=== PATIENT | female | born 1955 | race Caucasian/White ===

== ENCOUNTER 2017-07-22 17:12 | Inpatient (IN) | payer BC ==
--- OUTSIDE RECORDS SUMMARY | 2017-07-22 17:15 | XMS REPORT | Clinical Summary ---
:1955 Author Organization [facility] Address [address] [place] [address] Phone Care Team Providers Name Role Phone Unavailable Primary Care Provider Unavailable Allergies Active Allergy Reactions Severity Noted Date Comments Levofloxacin 09/30/2014 Itching,rednes and burning on the site only. Codeine Rash Low 10/29/2013 Current Medications Prescription Sig. Disp. Refills Start End Status Date Date blood sugar diagnostic Test 4 times 100 strip 3 10/23/19 Active (EASY TOUCH) daily, each meal 15 StrpIndications: and at bedtime. Diabetes (HCC) amLODIPine (NORVASC) 5 Take 5 mg by 10/21/19 Active MG tablet mouth daily . 15 INSULIN Inject 35 Units Active GLARGINE,HUM.REC.ANLOG subcutaneously (TOUJEO SOLOSTAR SUBQ) once at bedtime . calcium Take 1 tablet by Active carbonate-vitamin D3 mouth 2 (two) (OSCAL-D) 500 times daily with mg(1,250mg) -200 unit breakfast and per tablet dinner. cyanocobalamin Take 1,000 mcg by Active (VITAMIN B-12) 1000 mouth daily. MCG tablet metoprolol (TOPROL-XL) Take 100 mg by Active 100 MG 24 hr tablet mouth 2 (two) times daily. traMADol (ULTRAM) 50 Take 50 mg by Active mg tablet mouth every 6 (six) hours as needed for Pain. aspirin 81 MG chewable Take 1 tablet (81 90 tablet 0 08/09/20 2 Active tablet mg total) by 17 018 mouth daily. hydroCHLOROthiazide Take 12.5 mg by Active (MICROZIDE) 12.5 mg mouth daily. capsule tacrolimus (PROGRAF) 1 Take 5 capsules 900 1 03/05/20 Active MG capsuleIndications: (5 mg total) by capsule 17 018 HCC (hepatocellular mouth 2 (two) carcinoma) (HCC), times daily. Liver replaced by transplant (HCC) famotidine (PEPCID) 20 Take 1 tablet (20 30 tablet 11 10/21/19 Discontinued MG tablet mg total) by 15 017 mouth daily. ursodiol (ACTIGALL) Take 1 capsule 60 capsule 11 10/21/19 Discontinued 300 mg capsule (300 mg total) by 15 017 mouth 2 (two) times daily. predniSONE (DELTASONE) Take 0.5 tablets 05/11/19 Discontinued 5 MG tablet (2.5 mg total) by 16 017 mouth daily. sulfamethoxazole-trime Take 1 tablet 12 tablet 3 09/05/19 Discontinued thoprim (BACTRIM DS) (160 mg of 16 017 800-160 mg per trimethoprim tabletIndications: total) by mouth Liver replaced by every Saturday, transplant (HCC), Saturday, Immunosuppression Saturday. (HCC) tacrolimus (PROGRAF) 1 Take 5 capsules 300 6 06/26/19 Discontinued MG capsuleIndications: (5 mg total) by capsule 17 017 HCC (hepatocellular mouth 2 (two) carcinoma) (HCC), times daily. Liver replaced by transplant (HCC) esomeprazole (NEXIUM) Take 1 capsule 30 capsule 11 08/10/19 Discontinued 40 MG capsule (40 mg total) by 17 017 mouth daily. hydroCHLOROthiazide Take 1 tablet 90 tablet 0 08/10/19 Discontinued (HYDRODIURIL) 12.5 MG (12.5 mg total) 17 017 tablet by mouth daily. furosemide (LASIX) 20 Take 20 mg by Discontinued MG tablet mouth daily. 017 Active Problems Problem Noted Date Chest pain 08/08/2016 Immunosuppression (HCC) 10/18/2014 Last Assessment & Plan: On prograf maintenance- will adjust according to level. CKD (chronic kidney disease) 10/18/2014 Last Assessment & Plan: Kidney function has recovered. Dr. Saini following. Hyperkalemia 10/14/2014 Last Assessment & Plan: Resolved with discontinuation of losartan and avoidance of K in diet, while on prograf. Continue to monitor- labs pending. Liver replaced by transplant (HCC) 09/30/2014 Last Assessment & Plan: Excellent graft function. Type 2 diabetes mellitus with diabetic polyneuropathy, with long-term 2013 current use of insulin (HCC) Last Assessment & Plan: Blood sugars controlled. Obesity (BMI 30-39.9) 12/17/2013 Last Assessment & Plan: Patient has not yet started to diet. Patient uses a walker but seems motivated to make changes. States she has lost 45 pounds in anticipation of transplant. Lipid profile looks good on last lab draw. Portal hypertension (HCC) 10/29/2013 Last Assessment & Plan: Manifested by thrombocytopenia. HCC (hepatocellular carcinoma) (HCC) 10/29/2013 Last Assessment & Plan: 2 foci of HCC without lymphovascular invasion. Continue with HCC surveillance using cross-sectional imaging. Hepatitis C, genotype 3a 10/29/2013 Last Assessment & Plan: Patient is s/p liver transplant. Is being followed by hepatology. Immunity status testing 10/29/2013 Last Assessment & Plan: CDC recommends that all patients with chronic liver disease, regardless of etiology, should be immunized to prevent hepatitis A and hepatitis B if they are not already immune. This should be done in addition to other age-appropriate vaccines. We will test for immunity to both viruses - vaccine recommendations will follow. Encounters Date Type Specialty Care Team Description 07/18/2017 Abstract Transplant Shiela Weems, Hepatology RN 03/03/2017 Refill Transplant Johnny Tinoco, HCC (hepatocellular Hepatology carcinoma) (HCC);Liver replaced by transplant (HCC) 10/11/2016 Telephone Transplant Felicia Velasco, Medication Hepatology RN Management (leg swelling) 10/09/2016 Telephone Transplant Judy Simpson Labs Only (Spoke Hepatology w/pt re; labs/meds. No changes in her medication, repeat labs 01/08/17 at [facility]. ) 10/09/2016 Abstract Transplant Celeste Salinas Hepatology MD Anders 10/08/2016 Follow-Up Transplant Celeste Salinas Liver replaced by Hepatrosanna Mcnamara MD transplant (HCC) (Primary Dx);Obesity (BMI 30-39.9);Hepatitis C virus infection without hepatic coma, unspecified chronicity;Immunosu ppression (HCC);Screening for malignant neoplasm 10/08/2016 Orders Only Transplant KaeCeleste chaves Liver replaced by Hepatrosanna Mcnamara MD transplant (HCC);HCC (hepatocellular carcinoma) (HCC);Hepatitis C virus infection without hepatic coma, unspecified chronicity;Type 2 diabetes mellitus with diabetic polyneuropathy, with long-term current use of insulin (HCC);Obesity (BMI 30-39.9);CKD (chronic kidney disease), stage 2 (mild) 10/07/2016 Telephone Transplant Felicia Velasco, Medication Problem Hepatology RN (Prograf) 08/29/2016 Orders Only Transplant Steven, Liver replaced by Hepatology Miranda Sunshine RN transplant (HCC) (Primary Dx);HCC (hepatocellular carcinoma) (HCC);Hepatitis C virus infection without hepatic coma, unspecified chronicity;Type 2 diabetes mellitus with diabetic polyneuropathy, with long-term current use of insulin (HCC);Obesity (BMI 30-39.9);CKD (chronic kidney disease), stage 2 (mild) 08/08/2016 - Hospital Encounter Cardiology Nita Koroma Chest pain, 08/09/2016 MD Coni unspecified Zulma Freitas MD type;Liver replaced by transplant (HCC);Type 2 diabetes mellitus with diabetic polyneuropathy, with long-term current use of insulin (HCC);CKD (chronic kidney disease), stage 2 (mild);Immunosuppre ssion (HCC);Obesity (BMI 30-39.9) 08/01/2016 Orders Only Transplant Harris, Liver replaced by Hepatology Miranda Sunshine RN transplant;HCC (hepatocellular carcinoma);Hepatiti s C virus infection without hepatic coma, unspecified chronicity;Drug or chemical induced diabetes mellitus without complication, with long-term current use of insulin (HCC);Immunosuppres claribel;CKD (chronic kidney disease), stage 2 (mild) after 07/21/2016 Immunizations Name Dates Previously Given Next Due Pneumococcal Polysaccharide (Pneumovax) 08/09/2016 Family History Medical History Relation Name Comments Stroke Mother Unremarkable Mother Cancer Sister Relation Name Status Comments Daughter Alive Father Mother Alive Sister Alive Social History Tobacco Use Types Packs/Day Years Used Date Current Every Day Smoker 0.5 30 Smokeless Tobacco: Never Used Alcohol Use Drinks/Week oz/Week Comments No 1 drink/ 2 months Sex Assigned at Date Recorded Not on file Last Filed Vital Signs Vital Sign Reading Time Taken Blood Pressure 146/79 10/08/2016 11:11 AM CDT Pulse 70 10/08/2016 11:11 AM CDT Temperature 36.7 C (98 F) 10/08/2016 11:11 AM CDT Respiratory Rate 20 10/08/2016 11:11 AM CDT Oxygen Saturation 100% 10/08/2016 11:11 AM CDT Inhaled Oxygen Concentration - - Weight 107 kg (236 lb) 10/08/2016 11:11 AM CDT Height 167.6 cm (5' 6") 10/08/2016 11:11 AM CDT Body Mass Index 38.09 10/08/2016 11:11 AM CDT Plan of Treatment Health Maintenance Due Date Last Done Comments INFLUENZA VACCINE 12/23/2017 Implants Implanted Type Area Product Blending Supervisor Device Expiration Model / Identifier Date Serial / Lot Angio-Seal Vip Right: [employer] 10/22/2014 [id number] / Implanted: Qty: 1 on 02/16/2014 by Darío Shearer MD [employer] / [id number] Results CBC with platelet count + automated diff (10/08/2016 10:14 AM)Only the most recent of2 resultswithin the time period is included. Component Value Ref Range WBC 5.8 4.0 - 10.0 K/L RBC 4.55 4.00 - 5.00 M/L Hemoglobin 12.6 12.0 - 15.0 GM/DL Hematocrit 37.1 36.0 - 45.0 % MCV 81.5 (L) 82.0 - 99.0 fL MCH 27.7 27.0 - 33.0 pg MCHC 34.0 32.0 - 36.0 GM/DL RDW 13.1 10.3 - 14.2 % Platelets 158 150 - 430 K/CU MM MPV 7.3 6.5 - 10.5 fL nRBC 0 0 - 0 /100 WBC % Neutros 51 % % Lymphs 27 % % Monos 21 % % Eos 2 % % Baso 0 % # Neutros 2.94 1.80 - 8.00 K/L # Lymphs 1.54 1.48 - 4.50 K/L # Monos 1.19 0.00 - 1.30 K/L # Eos 0.10 0.00 - 0.50 K/L # Baso 0.02 0.00 - 0.20 K/L Specimen Performing Laboratory Blood [address] [address] Narrative 0.00 Tacrolimus level (10/08/2016 10:14 AM)Only the most recent of2 resultswithin the time period is included. Component Value Ref Range Tacrolimus Lvl 9.6 (L) 10.0 - 20.0 ng/mL Specimen Performing Laboratory Blood [address] [address] Alpha fetoprotein (AFP), tumor marker (10/08/2016 10:14 AM) Component Value Ref Range Alpha-Fetoprotein <2.0 <10.0 ng/mL Specimen Performing Laboratory Blood [address] [address] Narrative Effective 02/09/2014: Reference Range Change New: <10.0 Previous: 0.0-8.0 Hepatitis C PCR, Quantitative (10/08/2016 10:14 AM) Component Value Ref Range HCV PCR, Quantitative HCV RNA not detected HCV RNA not detected Specimen Performing Laboratory Blood [address] [address] Narrative This test uses a Real-Time Polymerase Chain Reaction (RT-PCR) methodology and was performed using LAZ Ampliprep/LAZ TaqMan HCV test kit version 2.0 ( [employer]). Reportable range for this assay is 15 - 100,000,000 IU per mL (1.18 - 8.00 Log IU/mL). CBC with platelet count + automated diff (10/08/2016 10:14 AM)Only the most recent of2 resultswithin the time period is included. Specimen Performing Laboratory Blood [facility] ([facility]) Narrative The following orders were created for panel order CBC with platelet count + automated diff. Procedure Abnormality Status --------- ------ CBC with platelet count ...[[id number]]AbnormalFinal result Please view results for these tests on the individual orders. Phosphorus (10/08/2016 10:14 AM) Component Value Ref Range Phosphorus 4.5 2.3 - 4.7 mg/dL Specimen Performing Laboratory Blood [address] [address] Magnesium (10/08/2016 10:14 AM) Component Value Ref Range Magnesium 2.3 1.6 - 2.6 mg/dL Specimen Performing Laboratory Blood [address] [address] Bilirubin, direct (10/08/2016 10:14 AM) Component Value Ref Range Bilirubin, Direct 0.2 0.1 - 0.5 mg/dL Specimen Performing Laboratory Blood [address] [address] Lipid panel (10/08/2016 10:14 AM) Component Value Ref Range Triglycerides 170 mg/dL Cholesterol 175 mg/dL HDL 52 mg/dL LDL Calculated 89 mg/dL Specimen Performing Laboratory Blood [address] [address] Narrative Triglyceride Reference Range: Low Risk <150 [id number] High Risk 200-499 Very High Risk>=500 Cholesterol Reference Range: Low Risk <200 [id number] High Risk>240 HDL Cholesterol Reference Range: Low Risk >=60 High Risk <40 LDL Cholesterol Reference Range: Optimal<100 Near Cokijxh303-280 [id number] Rpyu178-503 Very High >=190 Comprehensive metabolic panel (10/08/2016 10:14 AM) Component Value Ref Range Protein, Total 6.7 6.0 - 8.3 gm/dL Albumin 3.5 3.5 - 5.0 g/dL Alkaline Phosphatase 120 40 - 150 U/L Total Bilirubin 0.7 0.2 - 1.2 mg/dL Sodium 140 136 - 145 meq/L Potassium 5.1 3.5 - 5.1 meq/L Chloride 108 (H) 98 - 107 meq/L CO2 22 22 - 29 meq/L BUN 37 (H) 7 - 21 mg/dL Creatinine 1.16 0.57 - 1.25 mg/dL Glucose 214 (H) 70 - 105 mg/dL Calcium 9.1 8.4 - 10.2 mg/dL AST 16 5 - 34 U/L ALT 17 6 - 55 U/L EGFR 47Comment: ESTIMATED GFR IS NOT ACCURATE mL/min/1.73 sq m CREATININE CLEARANCE IN PREDICTING GLOMERULAR FILTRATION RATE. ESTIMATED GFR IS NOT APPLICABLE FOR DIALYSIS PATIENTS. Specimen Performing Laboratory Blood [address] [address] RHYTHM STRIP - SCAN (08/10/2016 10:20 AM)POC-Glucose meter (08/09/2016 12:20 PM) Only the most recent of5 resultswithin the time period is included. Component Value Ref Range POC-Glucose Meter 100Comment: TESTED AT [address] 70 - 110 mg/dL [address] Specimen Performing Laboratory Blood [address] [address] 2D Echo W/Doppler(CW/PW/Color) (08/09/2016 10:28 AM) Specimen Performing Laboratory DIGISONICS Narrative Echocardiography Laboratory [address] [place] [address] Voice:[phone] Transthoracic Echocardiogram Pat.Name:PAM KO.ID:[id number] .Date: 08/09/2016 Refer.MD:NITA KOROMA Exam Time: 10:28:00 AM Study Type:Echo Complete Height:66inWeight:229lb BSA: 2.12 m2 DOBAge:1955,61Y Sex: FEMALEBP:120/59 HR:76 bpmSonogrphr: Yann Mendez [facility] Pat. Stat.:Inpatient Room:1447 Reason for Study:Acute Chest Pain / Suspected CAD History / Clinical:Cancer, Diabetes, Hepatitis C, Hypertension, Obesity, Stroke/TIA, Hepatitis B Procedures:2D ECHO W/ DOPPLER (CW/PW/COLOR) SUMMARY: Left ventricular chamber size (by PSLAX dimension) is normal (female - LVIDd 3.8-5.2 cm). Moderate concentric LV hypertrophy. All of the LV segments contract normally. Estimated LVEF by qualitative assessment is normal (> 60%). The right ventricular chamber size and systolic function are within normal limits. Unable to estimate peak systolic PA pressure; inadequate TR velocity signal. No pericardial effusion is visualized. FINDINGS: LV: All of the LV segments contract normally. Global LV systolic functionis normal. Moderate concentric LV hypertrophy. Leftventricular chamber size (by PSLAX dimension) is normal(female -LVIDd 3.8-5.2 cm). Estimated LVEF by qualitativeassessment is normal (> 60%). LA: LA size is normal (16-34 ml/m2). RV: The right ventricular chamber size and systolic function are withinnormal limits. RA: RA cavity size is normal. AV: Mild AoV cusp thickening. A trace of aortic regurgitation. MV: Mild MV leaflet thickening. Mild MV leaflet calcification. TV: TV structure is normal. Unable to estimate peak systolic PA pressure;inadequate TR velocity signal. PV: Normal PV structure and function by limited views and Doppler. AO: Aortic root size (Sinus of Valsalva diameter) is normal. Pericard: No pericardial effusion is visualized. PA/PV/Pleural: Pulmonary vein flow is normal. MEASUREMENTS: 2D LA Sng Plane LA Vol71.3 mlIndex 33.6 ml/m2 LA Area 22.9 cm2(8.8-23.4) Parasternal Long Va[place] Ao An 2.19 cm (1.4-2.6) LV%fs 49.6 %(25-46)* Ao Rtd3.41 cmLVPWd 1.57 cm IVSd1.66 cm LA Ds 4.48 cm (2.3-3.8)* LVIDd 4.15 cm (4.3-5.1)* LV Wmn 1.62 cm LVIDs 2.09 cm (2-4) Signed 08/09/2016 12:59 PM Jarred Todd M.D. Procedure Note Interface, External Ris In - 08/09/2016 1:00 PM CDT Echocardiography Laboratory [address] [place] [address] Voice: [phone] Transthoracic Echocardiogram Pat.Name: PAM KO Pat.ID: [id number] St.Date: 08/09/2016 Refer.MD: NITA KOROMA Exam Time: 10:28:00 AM Study Type:Echo Complete Height: 66in Weight: 229lb BSA: 2.12 m2 Age: 10 1955,61Y Sex: FEMALE BP: 120/59 HR: 76 bpm Sonogrphr: Yann Mendez [facility] Pat. Stat.:Inpatient Room: [facility] Reason for Study:Acute Chest Pain / Suspected CAD History / Clinical:Cancer, Diabetes, Hepatitis C, Hypertension, Obesity, Stroke/TIA, Hepatitis B Procedures:2D ECHO W/ DOPPLER (CW/PW/COLOR) SUMMARY: Left ventricular chamber size (by PSLAX dimension) is normal (female - LVIDd 3.8-5.2 cm). Moderate concentric LV hypertrophy. All of the LV segments contract normally. Estimated LVEF by qualitative assessment is normal (> 60%). The right ventricular chamber size and systolic function are within normal limits. Unable to estimate peak systolic PA pressure; inadequate TR velocity signal. No pericardial effusion is visualized. FINDINGS: LV: All of the LV segments contract normally. Global LV systolic function is normal. Moderate concentric LV hypertrophy. Left ventricular chamber size (by PSLAX dimension) is normal (female - LVIDd 3.8-5.2 cm). Estimated LVEF by qualitative assessment is normal (> 60%). LA: LA size is normal (16-34 ml/m2). RV: The right ventricular chamber size and systolic function are within normal limits. RA: RA cavity size is normal. AV: Mild AoV cusp thickening. A trace of aortic regurgitation. MV: Mild MV leaflet thickening. Mild MV leaflet calcification. TV: TV structure is normal. Unable to estimate peak systolic PA pressure; inadequate TR velocity signal. PV: Normal PV structure and function by limited views and Doppler. AO: Aortic root size (Sinus of Valsalva diameter) is normal. Pericard: No pericardial effusion is visualized. PA/PV/Pleural: Pulmonary vein flow is normal. MEASUREMENTS: 2D LA Sng Plane LA Vol 71.3 ml Index 33.6 ml/m2 LA Area 22.9 cm2 (8.8-23.4) Parasternal Long [place] Ao An 2.19 cm (1.4-2.6) LV%fs 49.6 % (25-46)* Ao Rtd 3.41 cm LVPWd 1.57 cm IVSd 1.66 cm LA Ds 4.48 cm (2.3-3.8)* LVIDd 4.15 cm (4.3-5.1)* LV Wmn 1.62 cm LVIDs 2.09 cm (2-4) Signed 08/09/2016 12:59 PM Jarred Todd M.D. NM myocardial perfusion PET (rest and stress) (08/09/2016 9:56 AM) Specimen Performing Laboratory GE RIS Impressions : 1. Normal study.2. Appropriate pharmacologic stress.3. Normal myocardial perfusion.4. Normal resting LV function. No deterioration of function is noted with pharmacologic stress.5. Normal extracardiac tracer distribution.6. No previous [facility] study for comparison. NONINVASIVE RISK STRATIFICATION: The above findings are considered low risk (<1% annual mortality rate) based on the following criterion: - Normal or small myocardial perfusion defect at rest or with stress ([facility]. 2012;59(9):857-81.) Signed: Nikunj Elena MD Report Verified Date/Time:08/09/2016 13:11:22 Reading Location: [address] [id number] [facility] Reading Room Narrative FINAL REPORT PROCEDURE: Rest/Stress MYOCARDIAL PERFUSION PET with regadenoson\\XA9\\ CPT CODE: 30510 INDICATION: Chest pain evaluation HISTORY: Cardiac risk factors: Diabetes, obesity, stroke. Other cardiovascular history: No reported CAD. Recent cardiac symptoms: Chest pain. Current cardiovascular-related medications: Amlodipine, metoprolol succinate. PROTOCOL: Limited low-dose CT imaging was performed for attenuation correction. 40.0 mCi of Rb-82 chloride was injected iv at rest, and gated PET (positron emission tomography) images were obtained. Subsequently, 40.20 mCi of Rb-82 chloride was injected iv at expected peak pharmacologic effect, and gated PET images were obtained. PRELIMINARY STRESS TEST DATA FROM NONINVASIVE CARDIOLOGY: Pharmacologic stress was by 10-second iv infusion of 0.4 mg of regadenoson. Radiotracer was injected 30 seconds after start of stress. Heart rate was 67 beats/min at rest and 77 beats/min (49% of MPHR) at tracer injection. BP was 148/68 mmHg at rest and 158/41 mmHg at tracer injection. Stress was stopped for predetermined endpoint. The patient experienced flushing; treatment was not required. Preliminary ECG evaluation revealed sinus rhythm at rest and no ischemic changes with stress. (Final ECG interpretation and other stress and monitoring data are reported separately by Cardiology.) IMAGING FINDINGS: Study quality is good. Images obtained after rest and stress injections show normal LV activity. LV and RV volumes appear normal. Gated images obtained at rest and with stress show normal LV wall motion and thickening. LVEF at rest is 70%. LVEF at stress is 69%. Procedure Note Interface, External Ris In - 08/09/2016 1:13 PM CDT FINAL REPORT PROCEDURE: Rest/Stress MYOCARDIAL PERFUSION PET with regadenoson\\XA9\\ CPT CODE: 97352 INDICATION: Chest pain evaluation HISTORY: Cardiac risk factors: Diabetes, obesity, stroke. Other cardiovascular history: No reported CAD. Recent cardiac symptoms: Chest pain. Current cardiovascular-related medications: Amlodipine, metoprolol succinate. PROTOCOL: Limited low-dose CT imaging was performed for attenuation correction. 40.0 mCi of Rb-82 chloride was injected iv at rest, and gated PET (positron emission tomography) images were obtained. Subsequently, 40.20 mCi of Rb-82 chloride was injected iv at expected peak pharmacologic effect, and gated PET images were obtained. PRELIMINARY STRESS TEST DATA FROM NONINVASIVE CARDIOLOGY: Pharmacologic stress was by 10-second iv infusion of 0.4 mg of regadenoson. Radiotracer was injected 30 seconds after start of stress. Heart rate was 67 beats/min at rest and 77 beats/min (49% of MPHR) at tracer injection. BP was 148/68 mmHg at rest and 158/41 mmHg at tracer injection. Stress was stopped for predetermined endpoint. The patient experienced flushing; treatment was not required. Preliminary ECG evaluation revealed sinus rhythm at rest and no ischemic changes with stress. (Final ECG interpretation and other stress and monitoring data are reported separately by Cardiology.) IMAGING FINDINGS: Study quality is good. Images obtained after rest and stress injections show normal LV activity. LV and RV volumes appear normal. Gated images obtained at rest and with stress show normal LV wall motion and thickening. LVEF at rest is 70%. LVEF at stress is 69%. IMPRESSION : 1. Normal study. 2. Appropriate pharmacologic stress. 3. Normal myocardial perfusion. 4. Normal resting LV function. No deterioration of function is noted with pharmacologic stress. 5. Normal extracardiac tracer distribution. 6. No previous [facility] study for comparison. NONINVASIVE RISK STRATIFICATION: The above findings are considered low risk (<1% annual mortality rate) based on the following criterion: - Normal or small myocardial perfusion defect at rest or with stress ([facility]. 2012;59(9):857-81.) Signed: Nikunj Elena MD Report Verified Date/Time: 08/09/2016 13:11:22 Reading Location: [address] Reading Room Treadmill tolerance(Non-Nuclear Treadmill) (08/09/2016 9:34 AM) Specimen Performing Laboratory GE MUSE Narrative Protocol Name Regadenoson Time In Exercise Phase 00:01:00 Max. Systolic BP 158 mmHg Max Diastolic BP 41 mmHg Max Heart Rate 77 BPM Max Predicted Heart Rate 157 BPM Reason For Termination Predetermined end point Reason for Test Chest Pain Target HR Formula (220 - Age)*100% Arrhythmias none Resting ECG Normal sinus rhythm ST Changes No Significant Changes Overall Impression Indeterminate due to pharmacological stress Chest Pain none HR Response To Exercise BP Response To Exercise NORVASC TOPROL XL Confirmed by fellow Postalian Michael Jimenez ([id number]) on 08/09/2016 10:18: 51 AM Confirmed by MD CASANOVA JORGE [id number]) on 08/10/2016 5:24:48 PM Procedure Note Interface, External Ris In - 08/10/2016 5:24 PM CDT Protocol Name Regadenoson Time In Exercise Phase 00:01:00 Max. Systolic BP 158 mmHg Max Diastolic BP 41 mmHg Max Heart Rate 77 BPM Max Predicted Heart Rate 157 BPM Reason For Termination Predetermined end point Reason for Test Chest Pain Target HR Formula (220 - Age)*100% Arrhythmias none Resting ECG Normal sinus rhythm ST Changes No Significant Changes Overall Impression Indeterminate due to pharmacological stress Chest Pain none HR Response To Exercise BP Response To Exercise NORVASC TOPROL XL Confirmed by fellow Postalian Michael Jimenez ([id number]) on 08/09/2016 10:18: 51 AM Confirmed by MD CASANOVA JORGE ([id number]) on 08/10/2016 5:24:48 PM ECG 12 lead (08/09/2016 7:55 AM)Only the most recent of2 resultswithin the time period is included. Specimen Performing Laboratory GE MUSE Narrative Ventricular Rate 69 BPM Atrial Rate 69 BPM P-R Interval 192 ms QRS Duration 88 ms Q-T Interval 438 ms QTC Calculation(Bazett) 469 ms P Vaiden 58 degrees R Vaiden -16 degrees T Va[place] 70 degrees Normal sinus rhythm Normal ECG When compared with ECG of 08-AUG-2016 18:16, Criteria for Septal infarct are no longer Present Confirmed by MD CASANOVA JORGE ([id number]) on 08/09/2016 2:54:05 PM Procedure Note Interface, External Ris In - 08/09/2016 2:54 PM CDT Ventricular Rate 69 BPM Atrial Rate 69 BPM P-R Interval 192 ms QRS Duration 88 ms Q-T Interval 438 ms QTC Calculation(Bazett) 469 ms P Vaiden 58 degrees R Vaiden -16 degrees T Vaiden 70 degrees Normal sinus rhythm Normal ECG When compared with ECG of 08-AUG-2016 18:16, Criteria for Septal infarct are no longer Present Confirmed by MD CASANOVA JORGE ([id number]) on 08/09/2016 2:54:05 PM Troponin I (08/09/2016 7:50 AM)Only the most recent of3 resultswithin the time period is included. Component Value Ref Range Troponin I 0.01 0.00 - 0.03 ng/mL Specimen Performing Laboratory Blood [address] [address] Narrative Effective 02/09/2014: Reference Range Change New: 0.00-0.03 Previous 0.00-0.15 Troponin I (TnI) levels must be interpreted in the context of the presenting symptoms and the clinical findings. Elevated TnI levels indicate myocardial damage, but are not specific for ischemic heart disease. Elevated TnI levels are seen in patients with other cardiac conditions (including myocarditis and congestive heart failure), and slight TnI elevations occur in patients with other conditions, including sepsis, renal failure, acidosis, acute neurological disease, and persistent tachyarrhythmia. Creatine Kinase (CK), Total and MB (08/09/2016 7:50 AM)Only the most recent of2 resultswithin the time period is included. Component Value Ref Range Total CK 38 29 - 200 U/L CK-MB 1.1 0.0 - 6.6 ng/mL MB Relative Index 2.9 % Specimen Performing Laboratory Blood [address] [address] Narrative Effective 02/09/2014: CK-MB Reference Range Change New: 0.0-6.6Previous: 0.0-4.9 CK-MB Reference Range: <6.7Normal 6.7-10.0Borderline >10.0 Abnormal Hepatic function panel (08/09/2016 5:08 AM) Component Value Ref Range Protein, Total 6.0 6.0 - 8.3 gm/dL Albumin 3.3 (L) 3.5 - 5.0 g/dL Total Bilirubin 1.0 0.2 - 1.2 mg/dL Bilirubin, Direct 0.3 0.1 - 0.5 mg/dL Alkaline Phosphatase 87 40 - 150 U/L AST 13 5 - 34 U/L ALT 10 6 - 55 U/L Specimen Performing Laboratory Blood - Line, Venous [address] [address] Basic metabolic panel (08/09/2016 5:08 AM) Component Value Ref Range Sodium 141 136 - 145 meq/L Potassium 4.6 3.5 - 5.1 meq/L Chloride 113 (H) 98 - 107 meq/L CO2 23 22 - 29 meq/L BUN 19 7 - 21 mg/dL Creatinine 0.87 0.57 - 1.25 mg/dL Glucose 76 70 - 105 mg/dL Calcium 8.8 8.4 - 10.2 mg/dL EGFR 66Comment: ESTIMATED GFR IS NOT ACCURATE mL/min/1.73 sq m CREATININE CLEARANCE IN PREDICTING GLOMERULAR FILTRATION RATE. ESTIMATED GFR IS NOT APPLICABLE FOR DIALYSIS PATIENTS. Specimen Performing Laboratory Blood - Line, Venous [address] [address] after 07/21/2016
--- OUTSIDE RECORDS SUMMARY | 2017-07-22 17:15 | XMS REPORT ---
:1955 [facility] Address [address] [place] [address] Care Team Providers Name Role Phone SUSIEHEATHERMEGA Unavailable Unavailable Coni RAMIREZ Unavailable Unavailable Problems This patient has no known problems. Allergies, Adverse Reactions, Alerts This patient has no known allergies or adverse reactions. Medications This patient has no known medications. Results Test Description Test Time Test Comments Text Results Atomic Results Result Comments HEPATITIS C PCR, QUANTITATIVE 2016-10-10 13:59:00 Test Item Value Reference Range Comments HCV RESULT COMPONENT (BEAKER) (test HCV RNA not detected HCV RNA not detected gsbu=7842) This test uses a Real-Time Polymerase Chain Reaction (RT-PCR) methodology and was performed using LAZ Ampliprep/LAZ TaqMan HCV test kit version 2.0 ( [employer]).Reportable range for this assay is 15 - 100,000, 000 IU per mL (1.18 - 8.00 Log IU/mL).TACROLIMUS [id number] 13:46:00 Test Item Value Reference Range Comments TACROLIMUS BLOOD (BEAKER) (test vsyb=832) 9.6 ng/mL 10.0-20.0 ALPHA FETOPROTEIN (AFP), TUMOR [id number] 13:23:00 Test Item Value Reference Range Comments ALPHA-FETOPROTEIN (BEAKER) (test pnpx=8005) < ng/mL <10.0 Effective 02/09/2014: Reference Range ChangeNew: <10.0 Previous: 0.0- [id number] 13:04:00 Test Item Value Reference Range Comments PHOSPHORUS (BEAKER) (test whon=356) 4.5 mg/dL 2.3-4.7 [id number] 13:04:00 Test Item Value Reference Range Comments MAGNESIUM (BEAKER) (test zrsq=954) 2.3 mg/dL 1.6-2.6 COMPREHENSIVE METABOLIC [id number] 13:04:00 Test Item Value Reference Range Comments TOTAL PROTEIN (BEAKER) 6.7 gm/dL 6.0-8.3 (test zjit=232) ALBUMIN (BEAKER) (test 3.5 g/dL 3.5-5.0 qcwj=5813) ALKALINE PHOSPHATASE 120 U/L 40-150 (BEAKER) (test ncpz=881) BILIRUBIN TOTAL (BEAKER) 0.7 mg/dL 0.2-1.2 (test npsx=732) SODIUM (BEAKER) (test 140 meq/L 136-145 ypxd=238) POTASSIUM (BEAKER) (test 5.1 meq/L 3.5-5.1 ksih=475) CHLORIDE (BEAKER) (test 108 meq/L 98-107 hfkh=236) CO2 (BEAKER) (test 22 meq/L 22-29 yxsu=503) BLOOD UREA NITROGEN 37 mg/dL 7-21 (BEAKER) (test eruv=148) CREATININE (BEAKER) (test 1.16 mg/dL 0.57-1.25 pkkb=135) GLUCOSE RANDOM (BEAKER) 214 mg/dL 70-105 (test nxsk=441) CALCIUM (BEAKER) (test 9.1 mg/dL 8.4-10.2 gfsf=957) AST (SGOT) (BEAKER) (test 16 U/L 5-34 pncc=043) ALT (SGPT) (BEAKER) (test 17 U/L 6-55 azsc=288) EGFR (BEAKER) (test 47 mL/min/1.73 sq m ESTIMATED GFR IS NOT iwri=7894) ACCURATE CREATININE CLEARANCE IN PREDICTING GLOMERULAR FILTRATION RATE. ESTIMATED GFR IS NOT APPLICABLE FOR DIALYSIS PATIENTS. LIPID [id number] 13:04:00 Test Item Value Reference Range Comments TRIGLYCERIDES (BEAKER) (test ymma=738) 170 mg/dL CHOLESTEROL (BEAKER) (test qgdi=079) 175 mg/dL HDL CHOLESTEROL (BEAKER) (test gnlr=848) 52 mg/dL LDL CHOLESTEROL CALCULATED (BEAKER) (test 89 mg/dL ulkl=871) Triglyceride Reference Range: Low Risk <150 Borderline 150- 199 High Risk 200-499 Very High Risk >=500Cholesterol Reference Range: Low Risk <200 Borderline 200-239 High Risk > 240HDL Cholesterol Reference Range: Low Risk >=60 High Risk <40LDL Cholesterol Reference Range: Optimal <100 Near Optimal 100-129 Borderline 130-159 High 160-189 Very High >=190BILIRUBIN, [id number] 13:04:00 Test Item Value Reference Range Comments BILIRUBIN DIRECT (BEAKER) (test psgm=688) 0.2 mg/dL 0.1-0.5 CBC W/PLT COUNT & AUTO [id number] 12:37:00 Test Item Value Reference Range Comments WHITE BLOOD CELL COUNT (BEAKER) (test ricu=852) 5.8 K/ L 4.0-10.0 RED BLOOD CELL COUNT (BEAKER) (test dkhk=291) 4.55 M/ L 4.00-5.00 HEMOGLOBIN (BEAKER) (test xkhq=797) 12.6 GM/DL 12.0-15.0 HEMATOCRIT (BEAKER) (test eyte=184) 37.1 % 36.0-45.0 MEAN CORPUSCULAR VOLUME (BEAKER) (test gsjk=609) 81.5 fL 82.0-99.0 MEAN CORPUSCULAR HEMOGLOBIN (BEAKER) (test 27.7 pg 27.0-33.0 ryiy=292) MEAN CORPUSCULAR HEMOGLOBIN CONC (BEAKER) (test 34.0 GM/DL 32.0-36.0 aenf=987) RED CELL DISTRIBUTION WIDTH (BEAKER) (test 13.1 % 10.3-14.2 epvd=050) PLATELET COUNT (BEAKER) (test qxfa=857) 158 K/CU MM 150-430 MEAN PLATELET VOLUME (BEAKER) (test hjej=482) 7.3 fL 6.5-10.5 NUCLEATED RED BLOOD CELLS (BEAKER) (test 0 /100 WBC 0-0 rzdk=328) NEUTROPHILS RELATIVE PERCENT (BEAKER) (test 51 % yxrf=020) LYMPHOCYTES RELATIVE PERCENT (BEAKER) (test 27 % ijow=196) MONOCYTES RELATIVE PERCENT (BEAKER) (test 21 % cagt=996) EOSINOPHILS RELATIVE PERCENT (BEAKER) (test 2 % kcpb=021) BASOPHILS RELATIVE PERCENT (BEAKER) (test 0 % hflr=410) NEUTROPHILS ABSOLUTE COUNT (BEAKER) (test 2.94 K/ L 1.80-8.00 xaug=096) LYMPHOCYTES ABSOLUTE COUNT (BEAKER) (test 1.54 K/ L 1.48-4.50 vxrd=636) MONOCYTES ABSOLUTE COUNT (BEAKER) (test 1.19 K/ L 0.00-1.30 glel=017) EOSINOPHILS ABSOLUTE COUNT (BEAKER) (test 0.10 K/ L 0.00-0.50 hjyl=944) BASOPHILS ABSOLUTE COUNT (BEAKER) (test 0.02 K/ L 0.00-0.20 hypr=253) 0.00POCT-GLUCOSE [id number] 13:29:00 Test Item Value Reference Range Comments POC-GLUCOSE METER (BEAKER) 77 mg/dL 70-110 TESTED AT [address] (test epqh=0614) [place] [id number] POCT-GLUCOSE [id number] 13:28:00 Test Item Value Reference Range Comments POC-GLUCOSE METER (BEAKER) 100 mg/dL 70-110 TESTED AT [address] (test etbv=9605) [facility] [address] POCT-GLUCOSE [id number] 12:04:00 Test Item Value Reference Range Comments POC-GLUCOSE METER (BEAKER) 69 mg/dL 70-110 TESTED AT [address] (test vyvr=1446) [place] [id number] CREATINE KINASE (CK), TOTAL AND [id number] 09:47:00 Test Item Value Reference Range Comments CREATINE KINASE TOTAL (BEAKER) (test whau=496) 38 U/L 29-200 CREATINE KINASE-MB (BEAKER) (test aqhe=423) 1.1 ng/mL 0.0-6.6 CREATINE KINASE-MB INDEX (BEAKER) (test qthr=780) 2.9 % Effective 02/09/2014: CK-MB Reference Range ChangeNew: 0.0-6.6 Previous: 0.0- 4.9CK-MB Reference Range:<6.7 Normal6.7-10.0 Borderline>10.0 AbnormalTACROLIMUS [id number] 09:04:00 Test Item Value Reference Range Comments TACROLIMUS BLOOD (BEAKER) (test nmti=977) 9.5 ng/mL 10.0-20.0 TROPONIN [id number] 08:43:00 Test Item Value Reference Range Comments TROPONIN I (BEAKER) (test zawx=111) 0.01 ng/mL 0.00-0.03 Effective 02/09/2014: Reference Range ChangeNew: 0.00-0.03 Previous 0.00- 0.15Troponin I (TnI) levels must be interpreted in the context of the presenting symptoms and the clinical findings. Elevated TnI levels indicate myocardial damage, but are not specific for ischemic heart disease. Elevated TnI levels are seen in patients with other cardiac conditions (including myocarditis and congestive heartfailure), and slight TnI elevations occur in patients with other conditions, including sepsis, renalfailure, acidosis, acute neurological disease, and persistent tachyarrhythmia.HEPATIC FUNCTION [id number] 05:43:00 Test Item Value Reference Range Comments TOTAL PROTEIN (BEAKER) (test lrmu=458) 6.0 gm/dL 6.0-8.3 ALBUMIN (BEAKER) (test mzvh=1834) 3.3 g/dL 3.5-5.0 BILIRUBIN TOTAL (BEAKER) (test fhwh=578) 1.0 mg/dL 0.2-1.2 BILIRUBIN DIRECT (BEAKER) (test zdpn=576) 0.3 mg/dL 0.1-0.5 ALKALINE PHOSPHATASE (BEAKER) (test qurf=227) 87 U/L 40-150 AST (SGOT) (BEAKER) (test micy=422) 13 U/L 5-34 ALT (SGPT) (BEAKER) (test rixl=281) 10 U/L 6-55 BASIC METABOLIC [id number] 05:43:00 Test Item Value Reference Range Comments SODIUM (BEAKER) (test 141 meq/L 136-145 wacb=125) POTASSIUM (BEAKER) (test 4.6 meq/L 3.5-5.1 ksts=480) CHLORIDE (BEAKER) (test 113 meq/L 98-107 crfw=796) CO2 (BEAKER) (test 23 meq/L 22-29 khcq=138) BLOOD UREA NITROGEN 19 mg/dL 7-21 (BEAKER) (test sutc=441) CREATININE (BEAKER) (test 0.87 mg/dL 0.57-1.25 uzvn=644) GLUCOSE RANDOM (BEAKER) 76 mg/dL 70-105 (test gqtd=888) CALCIUM (BEAKER) (test 8.8 mg/dL 8.4-10.2 rkhv=426) EGFR (BEAKER) (test 66 mL/min/1.73 sq m ESTIMATED GFR IS NOT lhcu=7300) ACCURATE CREATININE CLEARANCE IN PREDICTING GLOMERULAR FILTRATION RATE. ESTIMATED GFR IS NOT APPLICABLE FOR DIALYSIS PATIENTS. CBC W/PLT COUNT & AUTO [id number] 05:33:00 Test Item Value Reference Range Comments WHITE BLOOD CELL COUNT (BEAKER) (test vtep=594) 4.3 K/ L 4.0-10.0 RED BLOOD CELL COUNT (BEAKER) (test ynjc=181) 4.27 M/ L 4.00-5.00 HEMOGLOBIN (BEAKER) (test cbzi=788) 11.8 GM/DL 12.0-15.0 HEMATOCRIT (BEAKER) (test rsvc=870) 33.3 % 36.0-45.0 MEAN CORPUSCULAR VOLUME (BEAKER) (test pkpr=082) 77.8 fL 82.0-99.0 MEAN CORPUSCULAR HEMOGLOBIN (BEAKER) (test 27.6 pg 27.0-33.0 bvfa=823) MEAN CORPUSCULAR HEMOGLOBIN CONC (BEAKER) (test 35.5 GM/DL 32.0-36.0 kvyj=613) RED CELL DISTRIBUTION WIDTH (BEAKER) (test 14.4 % 10.3-14.2 rrun=925) PLATELET COUNT (BEAKER) (test dcvr=823) 136 K/CU MM 150-430 MEAN PLATELET VOLUME (BEAKER) (test wwey=630) 7.0 fL 6.5-10.5 NUCLEATED RED BLOOD CELLS (BEAKER) (test 0 /100 WBC 0-0 usrs=097) NEUTROPHILS RELATIVE PERCENT (BEAKER) (test 47 % dkfh=084) LYMPHOCYTES RELATIVE PERCENT (BEAKER) (test 34 % zfeb=100) MONOCYTES RELATIVE PERCENT (BEAKER) (test 16 % bcby=849) EOSINOPHILS RELATIVE PERCENT (BEAKER) (test 2 % jvhv=022) BASOPHILS RELATIVE PERCENT (BEAKER) (test 1 % fbhk=908) NEUTROPHILS ABSOLUTE COUNT (BEAKER) (test 2.00 K/ L 1.80-8.00 eujq=480) LYMPHOCYTES ABSOLUTE COUNT (BEAKER) (test 1.47 K/ L 1.48-4.50 pxad=552) MONOCYTES ABSOLUTE COUNT (BEAKER) (test 0.70 K/ L 0.00-1.30 kzmy=146) EOSINOPHILS ABSOLUTE COUNT (BEAKER) (test 0.09 K/ L 0.00-0.50 hdlu=182) BASOPHILS ABSOLUTE COUNT (BEAKER) (test 0.04 K/ L 0.00-0.20 hceq=998) 0.00TROPONIN [id number] 22:47:00 Test Item Value Reference Range Comments TROPONIN I (BEAKER) (test qbvt=816) < ng/mL 0.00-0.03 Effective 02/09/2014: Reference Range ChangeNew: 0.00-0.03 Previous 0.00- 0.15Troponin I (TnI) levels must be interpreted in the context of the presenting symptoms and the clinical findings. Elevated TnI levels indicate myocardial damage, but are not specific for ischemic heart disease. Elevated TnI levels are seen in patients with other cardiac conditions (including myocarditis and congestive heartfailure), and slight TnI elevations occur in patients with other conditions, including sepsis, renalfailure, acidosis, acute neurological disease, and persistent tachyarrhythmia.POCT-GLUCOSE [id number] 21:47:00 Test Item Value Reference Range Comments POC-GLUCOSE METER (BEAKER) 183 mg/dL 70-110 TESTED AT [facility] [address] [facility] (test kqno=4920) [facility] [address] CREATINE KINASE (CK), TOTAL AND [id number] 16:27:00 Test Item Value Reference Range Comments CREATINE KINASE TOTAL (BEAKER) (test dprm=133) 36 U/L 29-200 CREATINE KINASE-MB (BEAKER) (test nrxr=059) 1.4 ng/mL 0.0-6.6 CREATINE KINASE-MB INDEX (BEAKER) (test ndxu=502) 3.9 % Effective 02/09/2014: CK-MB Reference Range ChangeNew: 0.0-6.6 Previous: 0.0- 4.9CK-MB Reference Range:<6.7 Normal6.7-10.0 Borderline>10.0 AbnormalTROPONIN [id number] 16:27:00 Test Item Value Reference Range Comments TROPONIN I (RAJI) (test xcbq=956) < ng/mL 0.00-0.03 Effective 02/09/2014: Reference Range ChangeNew: 0.00-0.03 Previous 0.00- 0.15Troponin I (TnI) levels must be interpreted in the context of the presenting symptoms and the clinical findings. Elevated TnI levels indicate myocardial damage, but are not specific for ischemic heart disease. Elevated TnI levels are seen in patients with other cardiac conditions (including myocarditis and congestive heartfailure), and slight TnI elevations occur in patients with other conditions, including sepsis, renalfailure, acidosis, acute neurological disease, and persistent tachyarrhythmia.POCT-GLUCOSE [id number] 16:09:00 Test Item Value Reference Range Comments POC-GLUCOSE METER (RAJI) 95 mg/dL 70-110 TESTED AT [facility] [address] (test wtvh=1972) [facility] [address]
--- NOTE | 2017-07-22 19:16 | RAD REPORT ---
EXAM DESCRIPTION: CT - Ct Stroke Brain Wo Cont - 07/22/2017 7:01 pm CLINICAL HISTORY: Numbness and blurred vision COMPARISON: 2008 TECHNIQUE: Computed axial tomography of the head was obtained. IV contrast was not requested. All CT scans are performed using dose optimization technique as appropriate and may include automated exposure control or mA/KV adjustment according to patient size. FINDINGS: An intracranial bleed is not seen . The ventricles are normal in caliber. No extra-axial fluid collection is noted. 4 millimeter low-density areas present within the right thalamus. 6 millimeter low-density areas pres ent within the right basal ganglia. 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 IMPRESSION: Low-density areas within the right thalamus and right basal ganglia compatible with lacu sugar infarcts. Age is indeterminate. MRI brain is recommend. Exam was discussed with Dr Chavez in the Emergency Room at 7:10 p.m. on July 22, 2017
[2017-07-22] MEDS ORDERED: NA CHLORIDE 0.9% 500 ML ONE (19:31)
[2017-07-22] MEDS ORDERED: NA CHLORIDE 0.9% 1,000 ML ONE (19:31)
[2017-07-22] MEDS ORDERED: FOLIC ACID 5 MG/ML VIAL ONE (19:34)
--- NOTE | 2017-07-22 19:37 | RAD REPORT ---
EXAM DESCRIPTION: Cate Single View07/22/2017 7:13 pm CLINICAL HISTORY: cough COMPARISON: July 2016 FINDINGS: The lungs appear clear of acute infiltrate. The heart is normal size IMPRESSION: No acute abnormalities displayed
[2017-07-22 19:40] LABS: Absolute Lymphocytes (CBC) 1.4 K/uL (0.7-4.9); Absolute Monocytes 0.4 K/uL (0.1-1.3); Absolute Neutrophil 2.6 K/uL (1.8-8.0); Basophils % 0.2 % (0-1.3); Eosinophils % 1.8 % (0-4.4); Hematocrit 35.2 % (36.0-45.0); Lymphocytes % 30.7 % (15.3-44.8); MCH 25.4 pg (27.0-35.0); MCV 77.3 fL (80-100); MPV 7.6 fL (7.6-11.3); Monocytes % 9.2 % (3.3-12.3); RBC Red Blood Cell Count 4.55 M/uL (3.86-4.86)
--- NOTE | 2017-07-22 19:40 | EDPHYS ---
Physician Documentation [facility] Name: Lisa Ko Age: 62 yrs Sex: Female : 1955 Arrival Date: 07/22/2017 Time: 17:13 Bed 14 Private MD: Gatito Mitchell HPI: 07/22 18:48 This 62 yrs old Female presents to ER via Wheelchair with complaints of jean claude Slurred Speech, Weakness - Legs. 18:48 The patient presents to the emergency department with weakness of the left upper jean claude extremity, left lower extremity. Onset: The symptoms/episode began/occurred 4 day(s) ago. Context: occurred at home. Associated signs and symptoms: The patient has no apparent associated signs or symptoms. Severity of symptoms: At their worst the symptoms were mild moderate in the emergency department the symptoms are unchanged. Patient's baseline: Neuro: alert and fully oriented. Current symptoms: paralysis or paresis, of the face, left arm and left leg. The patient has experienced a previous episode, approximately 5 years ago. Historical: - Allergies: 17:30 Codeine; hb 17:30 Levaquin (Rash); hb - Home Meds: 17:30 amlodipine 10 mg tab 1 tab once daily [Active]; B-12 [Active]; metoprolol tartrate 100 hb mg Oral tab 1 tab 2 times per day [Active]; tacrolimus 5 mg Oral cap every 12 hours [Active]; Toujeo SoloStar 300 unit/mL (1.5 mL) subcutaneous inpn [Active]; tramadol 50 mg Oral tab 1 tab twice a day [Active]; Fish Oil 1,000 mg Oral cap [Active]; 17:31 aspirin 81 mg Oral chew 1 tab once daily [Active]; Vitamin D Oral [Active]; Vitamin E hb Oral [Active]; - PMHx: 17:30 liver transplant; neuropathy; liver cancer; Hypertension; Diabetes - IDDM; hb - PSHx: 17:30 liver transplant; hb - Immunization history:: Adult Immunizations up to date. - Social history:: Smoking status: Patient/guardian denies using tobacco. - Family history:: not pertinent. ROS: 18:48 Constitutional: Negative for fever, chills, and weight loss, Eyes: Negative for injury, jean claude pain, redness, and discharge, ENT: Negative for injury, pain, and discharge, Neck: Negative for injury, pain, and swelling, Cardiovascular: Negative for chest pain, palpitations, and edema, Respiratory: Negative for shortness of breath, cough, wheezing, and pleuritic chest pain, Abdomen/GI: Negative for abdominal pain, nausea, vomiting, diarrhea, and constipation, Back: Negative for injury and pain, : Negative for injury, bleeding, discharge, and swelling, MS/Extremity: Negative for injury and deformity, Skin: Negative for injury, rash, and discoloration, Psych: Negative for depression, anxiety, suicide ideation, homicidal ideation, and hallucinations, Allergy/Immunology: Negative for hives, rash, and allergies, Endocrine: Negative for neck swelling, polydipsia, polyuria, polyphagia, and marked weight changes, Hematologic/Lymphatic: Negative for swollen nodes, abnormal bleeding, and unusual bruising. 18:48 Neuro: Positive for 18:48 Neuro: Positive for weakness, of the left arm and left leg. jean claude Exam: 18:48 Constitutional: This is a well developed, well nourished patient who is awake, alert, jean claude and in no acute distress. Head/Face: Normocephalic, atraumatic. Eyes: Pupils equal round and reactive to light, extra-ocular motions intact. Lids and lashes normal. Conjunctiva and sclera are non-icteric and not injected. Cornea within normal limits. Periorbital areas with no swelling, redness, or edema. ENT: Nares patent. No nasal discharge, no septal abnormalities noted. Tympanic membranes are normal and external auditory canals are clear. Oropharynx with no redness, swelling, or masses, exudates, or evidence of obstruction, uvula midline. Mucous membranes moist. Neck: Trachea midline, no thyromegaly or masses palpated, and no cervical lymphadenopathy. Supple, full range of motion without nuchal rigidity, or vertebral point tenderness. No Meningismus. Chest/axilla: Normal chest wall appearance and motion. Nontender with no deformity. No lesions are appreciated. Cardiovascular: Regular rate and rhythm with a normal S1 and S2. No gallops, murmurs, or rubs. Normal PMI, no JVD. No pulse deficits. Respiratory: Lungs have equal breath sounds bilaterally, clear to auscultation and percussion. No rales, rhonchi or wheezes noted. No increased work of breathing, no retractions or nasal flaring. Abdomen/GI: Soft, non-tender, with normal bowel sounds. No distension or tympany. No guarding or rebound. No evidence of tenderness throughout. Back: No spinal tenderness. No costovertebral tenderness. Full range of motion. Female : Normal external genitalia. Skin: Warm, dry with normal turgor. Normal color with no rashes, no lesions, and no evidence of cellulitis. MS/ Extremity: Pulses equal, no cyanosis. Neurovascular intact. Full, normal range of motion. Psych: Awake, alert, with orientation to person, place and time. Behavior, mood, and affect are within normal limits. 18:48 Musculoskeletal/extremity: DVT Exam: No signs of deep vein thrombosis. no pain, no swelling, no tenderness, negative Homans' sign noted on exam, no appreciated bluish discoloration, no erythema, no increased warmth. 18:48 Neuro: Orientation: is normal, appropriate for stated age, no acute changes, Mentation: is normal, appropriate for stated age, no acute changes, Memory: is normal, appropriate for stated age, no acute changes, Cranial nerves: grossly normal, is grossly normal based on the patient's age, no acute changes, Cerebellar function: is grossly normal, is grossly normal based on the patient's age, no acute changes, Motor: moves all fours, strength is 4/5 in the left arm and left leg, Gait: not tested. Babinski testing is normal, seizure activity, is not displayed by the patient. Vital Signs: 17:28 BP 173 / 99; Pulse 88; Resp 18; Temp 98.1; Pulse Ox 100% on R/A; Weight 106.59 kg; hb Height 5 ft. 6 in. (167.64 cm); Pain 0/10; 18:30 BP 174 / 91; Pulse 78; Resp 18; Pulse Ox 99% on R/A; ph 20:08 BP 160 / 54; Pulse 78; Resp 18; Pulse Ox 97% on R/A; mt 21:21 BP 161 / 76; Pulse 74; Resp 18; Pulse Ox 99% on R/A; mt 21:45 BP 157 / 72; Pulse 73; Resp 17; Temp 97.9(O); Pulse Ox 99% on R/A; Pain 0/10; bs1 17:28 Body Mass Index 37.93 (106.59 kg, 167.64 cm) hb NIH Stroke Scale Scores: 19:33 NIHSS Score: 0 jean claude MDM: 18:36 Patient medically screened. jean claude 18:53 Data reviewed: vital signs, nurses notes, lab test result(s), EKG, radiologic studies, jean claude CT scan, MRI, plain films. 07/22 18:48 Order name: Basic Metabolic Panel; Complete Time: 20:19 [facility] 07/22 18:48 Order name: BNP; Complete Time: 20:19 [facility] 07/22 18:48 Order name: CBC with Diff; Complete Time: 20:19 [facility] 07/22 18:48 Order name: Ckmb; Complete Time: 20:19 [facility] 07/22 18:48 Order name: CPK; Complete Time: 20:19 [facility] 07/22 18:48 Order name: LFT's; Complete Time: 20:19 [facility] 07/22 18:48 Order name: Magnesium; Complete Time: 20:19 [facility] 07/22 18:48 Order name: PT-INR; Complete Time: 19:54 [facility] 07/22 18:48 Order name: Ptt, Activated; Complete Time: 19:54 [facility] 07/22 18:48 Order name: Troponin (emerg Dept Use Only); Complete Time: 20:19 [facility] 07/22 18:48 Order name: Lipase; Complete Time: 20:19 [facility] 07/22 18:48 Order name: Sed Rate; Complete Time: 20:19 [facility] 07/22 18:48 Order name: CRP; Complete Time: 20:19 [facility] 07/22 18:48 Order name: Urine Culture [facility] 07/22 18:48 Order name: XRAY Chest (1 view); Complete Time: 19:54 [facility] 07/22 18:48 Order name: EKG; Complete Time: 18:49 [facility] 07/22 18:48 Order name: Cardiac monitoring; Complete Time: 19:58 [facility] 07/22 18:48 Order name: CT Stroke Brain w/o Contrast; Complete Time: 19:33 [facility] 07/22 18:59 Order name: Brain Wo Cont [facility]DC 07/22 20:01 Order name: CONS Physician Consult [facility] 07/22 22:10 Order name: Urine Dipstick--Ancillary (enter results) em1 07/22 22:13 Order name: Urine Dipstick-Ancillary [facility] 07/22 18:48 Order name: EKG - Nurse/Tech; Complete Time: 19:57 [facility] 07/22 18:48 Order name: IV Saline Lock; Complete Time: 19:57 [facility] 07/22 18:48 Order name: Labs collected and sent; Complete Time: 19:57 [facility] 07/22 18:48 Order name: O2 Per Protocol; Complete Time: 18:55 [facility] 07/22 18:48 Order name: O2 Sat Monitoring; Complete Time: 18:55 [facility] 07/22 18:48 Order name: Urine Dipstick-Ancillary (obtain specimen); Complete Time: 22:07 [facility] Administered Medications: 19:45 Drug: foLIC Acid 1 mg Route: IVPB; Site: right antecubital; bs1 22:00 Follow up: IV Status: Completed infusion bs1 19:45 Drug: NS 0.9% 500 ml Route: IV; Rate: bolus; Site: right antecubital; bs1 22:00 Follow up: IV Status: Completed infusion bs1 20:31 Drug: NS 0.9% 1000 ml Route: IV; Rate: 125 ml/hr; Site: right antecubital; bs1 21:56 Follow up: IV Status: Infusion continued upon admission bs1 20:45 Drug: Aspirin 162 mg Route: PO; bs1 21:55 Follow up: Response: No adverse reaction bs1 20:45 Drug: Rocephin - (cefTRIAXone) 1 grams Route: IVPB; Infused Over: 30 mins; Site: right bs1 antecubital; 21:55 Follow up: IV Status: Completed infusion bs1 20:45 Drug: Kayexalate 30 grams Route: PO; bs1 21:54 Follow up: Response: No adverse reaction bs1 20:46 Drug: PlaVIX 75 mg Route: PO; bs1 21:55 Follow up: Response: No adverse reaction bs1 Disposition: 07/22/17 19:39 Hospitalization ordered by Anuja Lyons for Observation. 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 - Bed requested for Telemetry/MedSurg (observation). - Status is Observation. bs1 - Condition is Stable. - Problem is new. - Symptoms have improved. UTI on Admission? No NIH Stroke Scale - NIH Stroke Score Date: 07/22/2017 Time: 19:33 Total Score = 0 1a. Level of Consciousness (LOC) - 0(Alert) 1b. Level of Consciousness (LOC) (Year \T\ Age) - 0(Both) 1c. LOC Commands (Open \T\ Closes Eyes/Dental Mold Maker) - 0(Both) 2. Best Gaze (Lateral Gaze Paresis) - 0(Normal) 3. Visual Field Loss - 0(No visual loss) 4. Facial Palsy - 0(Normal) 5a. Left Arm: Motor (10-second hold) - 0(No drift) 5b. Right Arm: Motor (10-second hold) - 0(No drift) 6a. Left Leg: Motor (5-second hold - always test supine) - 0(No drift) 6b. Right Leg: Motor (5-second hold - always test supine) - 0(No drift) 7. Limb Ataxia (finger/nose \T\ heel/wilkinson - test with eyes open) - 0(Absent) 8. Sensory Loss (pinprick arms/legs/face) - 0(Normal) 9. Best Language: Aphasia (description/naming/reading) - 0(No aphasia) 10. Dysarthria (speech clarity - read or repeat words) - 0(Normal) 11. Extinction and Inattention (visual/tactile/auditory/spatial/personal) - 0(No abnormality) Initials: jean claude Signatures: Dispatcher [employer] Yas Berkowitz, RN Gatito Saldivar MD MD cha Baxter, Heather, RN RN Nikky Foley RN RN bs1 Corrections: (The following items were deleted from the chart) 18:59 18:54 MR STROKE PROTOCOL+MRI.RAD.KAYKAY ordered. EDMS EDMS
--- NOTE | 2017-07-22 19:40 | ER ---
Nurse's Notes [facility] Emergency [facility] Name: Lisa Ko Age: 62 yrs Sex: Female : 1955 Arrival Date: 07/22/2017 Time: 17:13 Bed 14 Private MD: Diagnosis: Cerebral infarction;Transplanted organ and tissue status-liver;Hyperkalemia Presentation: 07/22 17:23 Presenting complaint: Patient states: "I was sitting in my chair last and I hb had a stroke again, my vision got blurry and I felt really weird." Has residual slurred speech, difficulty walking, and dizziness from previous CVA 2008, feel like she is having more trouble walking. Transition of care: patient was not received from another setting of care. 17:23 Method Of Arrival: Wheelchair hb 17:31 Onset of symptoms was July 18, 2017. Initial Sepsis Screen: Does the patient meet any hb 2 criteria? No. Patient's initial sepsis screen is negative. Does the patient have a suspected source of infection? No. Patient's initial sepsis screen is negative. Care prior to arrival: None. 17:31 Acuity: VANDA 3 hb Stroke Activation: Symptom onset > 6 hours Physician: Stroke Attending; Name: ; Notified At: ; Arrived At: Physician: Chief Stroke Resident; Name: ; Notified At: ; Arrived At: Physician: Stroke Resident; Name: ; Notified At: ; Arrived At: Physician: ED Attending; Name: ; Notified At: ; Arrived At: Physician: ED Resident; Name: ; Notified At: ; Arrived At: Historical: - Allergies: 17:30 Codeine; hb 17:30 Levaquin (Rash); hb - Home Meds: 17:30 amlodipine 10 mg tab 1 tab once daily [Active]; B-12 [Active]; metoprolol tartrate 100 hb mg Oral tab 1 tab 2 times per day [Active]; tacrolimus 5 mg Oral cap every 12 hours [Active]; Toujeo SoloStar 300 unit/mL (1.5 mL) subcutaneous inpn [Active]; tramadol 50 mg Oral tab 1 tab twice a day [Active]; Fish Oil 1,000 mg Oral cap [Active]; 17:31 aspirin 81 mg Oral chew 1 tab once daily [Active]; Vitamin D Oral [Active]; Vitamin E hb Oral [Active]; - PMHx: 17:30 liver transplant; neuropathy; liver cancer; Hypertension; Diabetes - IDDM; hb - PSHx: 17:30 liver transplant; hb - Immunization history:: Adult Immunizations up to date. - Social history:: Smoking status: Patient/guardian denies using tobacco. - Family history:: not pertinent. Screenin:52 Abuse screen: Denies threats or abuse. Denies injuries from another. Nutritional ph screening: No deficits noted. Tuberculosis screening: No symptoms or risk factors identified. Fall Risk None identified. Assessment: 17:45 General: Appears in no apparent distress. comfortable, well groomed, Behavior is calm, ph cooperative, appropriate for age, Denies fever, feeling ill. Pain: Denies pain. Neuro: Level of Consciousness is awake, alert, obeys commands, Oriented to person, place, time, situation, Sausage Smoker are weak on left hx of CVA w/ L sided deficits. Moves all extremities. Full function Speech is slurred, Facial symmetry appears normal, Pupils are PERRLA. Cardiovascular: Denies chest pain, nausea, shortness of breath, Capillary refill < 3 seconds in bilateral fingers Patient's skin is warm and dry. Edema is 2+ to left ankle, left foot, right ankle and right foot. Respiratory: Airway is patent Respiratory effort is even, unlabored. 17:45 GI: No signs and/or symptoms were reported involving the gastrointestinal system. Derm: ph Skin is intact, is healthy with good turgor, Skin is pink, warm \\T\\ dry. Musculoskeletal: Circulation, motion, and sensation intact. Range of motion: intact in all extremities. 18:40 Reassessment: Patient appears in no apparent distress at this time. Patient and/or ph family updated on plan of care and expected duration. Pain level reassessed. Patient is alert, oriented x 3, equal unlabored respirations, skin warm/dry/pink. ERP at bedside to speak w/ pt, VSS, will continue to monitor. 19:15 Reassessment: Patient appears in no apparent distress at this time. Patient and/or bs1 family updated on plan of care and expected duration. Pain level reassessed. Patient is alert, oriented x 3, equal unlabored respirations, skin warm/dry/pink. Report received from JACQUELYN Min Patient denies pain at this time. Neuro: Level of Consciousness is awake, alert, obeys commands, Oriented to person, place, time, situation, Sausage Smoker are weak on left Moves all extremities. Weakness in left arm(s) leg(s) Speech is slurred, Facial symmetry appears normal, Pupils are PERRLA. Cardiovascular: Denies chest pain, nausea, shortness of breath, Capillary refill < 3 seconds Patient's skin is warm and dry. Respiratory: Airway is patent Respiratory effort is even, unlabored. GI: No signs and/or symptoms were reported involving the gastrointestinal system. Derm: Skin is intact, is healthy with good turgor, Skin is pink, warm \\T\\ dry. Musculoskeletal: Circulation, motion, and sensation intact. Range of motion: limited in left side, hx of CVA. 20:30 Reassessment: Patient appears in no apparent distress at this time. No changes from bs1 previously documented assessment. Patient and/or family updated on plan of care and expected duration. Pain level reassessed. Patient is alert, oriented x 3, equal unlabored respirations, skin warm/dry/pink. 21:40 Reassessment: Patient appears in no apparent distress at this time. Patient and/or bs1 family updated on plan of care and expected duration. Pain level reassessed. Patient is alert, oriented x 3, equal unlabored respirations, skin warm/dry/pink. Patient denies pain at this time. Vital Signs: 17:28 BP 173 / 99; Pulse 88; Resp 18; Temp 98.1; Pulse Ox 100% on R/A; Weight 106.59 kg; hb Height 5 ft. 6 in. (167.64 cm); Pain 0/10; 18:30 BP 174 / 91; Pulse 78; Resp 18; Pulse Ox 99% on R/A; ph 20:08 BP 160 / 54; Pulse 78; Resp 18; Pulse Ox 97% on R/A; mt 21:21 BP 161 / 76; Pulse 74; Resp 18; Pulse Ox 99% on R/A; mt 21:45 BP 157 / 72; Pulse 73; Resp 17; Temp 97.9(O); Pulse Ox 99% on R/A; Pain 0/10; bs1 17:28 Body Mass Index 37.93 (106.59 kg, 167.64 cm) hb NIH Stroke Scale Scores: 19:33 NIHSS Score: 0 jean claude ED Course: 17:13 Patient arrived in ED. as 17:29 Arm band placed on left wrist. hb 17:32 Triage completed. hb 18:02 Mechelle Okeefe, RN is Primary Nurse. ph 18:36 Gatito Chavez MD is Attending Physician. jean claude 18:54 Patient has correct armband on for positive identification. Placed in gown. Bed in low ph position. Call light in reach. Side rails up X 1. Pulse ox on. NIBP on. Warm blanket given. 18:55 No provider procedures requiring assistance completed. ph 19:01 CT Stroke Brain w/o Contrast In Process Unspecified. EDMS 19:11 X-ray completed. Patient tolerated procedure well. Patient moved back from radiology. kc2 19:12 XRAY Chest (1 view) In Process Unspecified. EDMS 19:25 Inserted saline lock: 22 gauge in right antecubital area, using aseptic technique. bs1 19:38 Anuja Lyons MD is Hospitalizing Provider. jean claude 19:48 Patient moved to MRI via wheelchair. ka 19:49 Brain Wo Cont In Process Unspecified. EDMS 20:05 MRI completed. Patient tolerated well. Patient moved back from MRI. ka 22:17 Patient admitted, IV remains in place. intact. bs1 Administered Medications: 19:45 Drug: foLIC Acid 1 mg Route: IVPB; Site: right antecubital; bs1 22:00 Follow up: IV Status: Completed infusion bs1 19:45 Drug: NS 0.9% 500 ml Route: IV; Rate: bolus; Site: right antecubital; bs1 22:00 Follow up: IV Status: Completed infusion bs1 20:31 Drug: NS 0.9% 1000 ml Route: IV; Rate: 125 ml/hr; Site: right antecubital; bs1 21:56 Follow up: IV Status: Infusion continued upon admission bs1 20:45 Drug: Aspirin 162 mg Route: PO; bs1 21:55 Follow up: Response: No adverse reaction bs1 20:45 Drug: Rocephin - (cefTRIAXone) 1 grams Route: IVPB; Infused Over: 30 mins; Site: right bs1 antecubital; 21:55 Follow up: IV Status: Completed infusion bs1 20:45 Drug: Kayexalate 30 grams Route: PO; bs1 21:54 Follow up: Response: No adverse reaction bs1 20:46 Drug: PlaVIX 75 mg Route: PO; bs1 21:55 Follow up: Response: No adverse reaction bs1 Outcome: 19:39 Decision to Hospitalize by Provider. jean claude 22:17 Admitted to Tele accompanied by mariama, via wheelchair, room 415, with chart, Report bs1 called to JACQUELYN Dolan 22:17 Condition: stable 22:17 Instructed on the need for admit, Demonstrated understanding of instructions. 22:21 Patient left the ED. bs1 NIH Stroke Scale - NIH Stroke Score Date: 07/22/2017 Time: 19:33 Total Score = 0 1a. Level of Consciousness (LOC) - 0(Alert) 1b. Level of Consciousness (LOC) (Year \\T\\ Age) - 0(Both) 1c. LOC Commands (Open \\T\\ Closes Eyes/Automobile Washer Steam) - 0(Both) 2. Best Gaze (Lateral Gaze Paresis) - 0(Normal) 3. Visual Field Loss - 0(No visual loss) 4. Facial Palsy - 0(Normal) 5a. Left Arm: Motor (10-second hold) - 0(No drift) 5b. Right Arm: Motor (10-second hold) - 0(No drift) 6a. Left Leg: Motor (5-second hold - always test supine) - 0(No drift) 6b. Right Leg: Motor (5-second hold - always test supine) - 0(No drift) 7. Limb Ataxia (finger/nose \\T\\ heel/wilkinson - test with eyes open) - 0(Absent) 8. Sensory Loss (pinprick arms/legs/face) - 0(Normal) 9. Best Language: Aphasia (description/naming/reading) - 0(No aphasia) 10. Dysarthria (speech clarity - read or repeat words) - 0(Normal) 11. Extinction and Inattention (visual/tactile/auditory/spatial/personal) - 0(No abnormality) Initials: jean claude Signatures: Dispatcher [employer] EDGatito Navarrete MD MD cha Martinez, Amelia as Hall, Patricia, RN RN Sophy Arthur Heather, RN RN hb Carr, Kelsie kc Jennifer Pinto mt, Brittany, RN RN bs1 Corrections: (The following items were deleted from the chart) 18:52 17:45 Cardiovascular: Denies chest pain, nausea, shortness of breath, Capillary ph refill < 3 seconds in bilateral fingers Patient's skin is warm and dry. ph 18:52 17:45 Respiratory: Airway ph ph
[2017-07-22 19:43] LABS: Protime INR 1.01
[2017-07-22 19:50] LABS: Bicarbonate 23 mEq/L (21-31); Glucose Level 110 mg/dL (65-120); Lipase 15 U/L (22-51); Potassium 5.2 mEq/L (3.6-5.0); Sodium Level 141 mEq/L (135-145)
[2017-07-22 19:58] LABS: ALT/SGPT 14 IU/L (10-60); AST/SGOT 18 IU/L (10-42); Albumin 3.5 g/dL (3.2-5.5); Alkaline Phosphatase 73 IU/L (42-121); BUN Blood Urea Nitrogen 32 mg/dL (6-20); Bilirubin Direct 0.1 mg/dL (0-0.2); Creatine Phosphokinase 44 IU/L (22-269); Protein, Total 6.9 g/dL (6.0-8.3)
[2017-07-22] MEDS ORDERED: GLUCAGON 1 MG/VIAL IM PRN (20:00)
[2017-07-22] MEDS ORDERED: D50W 25 GM/50 ML SYRINGE IV PRN (20:00)
[2017-07-22 20:03] LABS: C-Reactive Protein < 5.0 mg/L (<10.0)
--- NOTE | 2017-07-22 20:22 | RAD REPORT ---
EXAM DESCRIPTION: MRI - Brain Wo Cont - 07/22/2017 7:59 pm CLINICAL HISTORY: Left arm numbness/left facial numbness COMPARISON: Head CT July 22, 2017 MRI brain 2009 TECHNIQUE: Axial, sagittal, and coronal magnetic images of the brain were obtained. Contrast was not requested FINDINGS: Two areas of abnormal signal involve left aspect of the kameron and near midline. One area me asures 10 mm the 5 millimeters. These represent acute infarcts. An additional old infarction involves the kameron. Small old lacunar infarcts involve the right basal ga nglia and thalami my bilaterally. . The ventricles are normal caliber. An extra-axial fluid collection is not present The sinuses and mastoids are clear. IMPRESSION: Acute pontine infarct. The exam was discussed with Doctor Chavez in emergency room 8: 15 p.m. July 22, 2017
[2017-07-22] MEDS ORDERED: SOD POLYSTYREN SUL 15 GM/60 ML UCUP ONE (20:34)
[2017-07-22] MEDS ORDERED: ASPIRIN EC 81 MG TAB PO ONE (20:34)
[2017-07-22] MEDS ORDERED: CLOPIDOGREL 75 MG TABLET ONE (20:34)
[2017-07-22] MEDS ORDERED: CEFTRIAXONE/SWI 1gm 1 GM/10 ML SYR ONE (20:34)
[2017-07-22] MEDS ORDERED: INSULIN -REGULAR HUMAN 50 UNIT/0.5 ML ML SQ SCH (21:00)
--- NOTE | 2017-07-22 21:57 | P.HP ---
Certification for Inpatient Patient admitted to: Observation With expected LOS: <2 Midnights Practitioner: I am a practitioner with admitting privileges, knowledge of patient current condition, hospital course, and medical plan of care. Services: Services provided to patient in accordance with Admission requirements found in Title 42 Section 412.3 of the Code of Federal Regulations Patient History Date of Service: 07/22/17 Reason for admission: acute CVA History of Present Illness: Ms Ko is a 62 years old woman with history of HTN, TIA's, IDDM, liver transplant, who start about 4 days ago with sudden episode of slurred speech, associated with left side weakness. The patient improved her weaknes but disarthria persist. She also is complaining of swallowing problems since the symptoms started. The patient states that she should be taking Aspirin every day , but she was not compliant. Brain CT and then MRI were consistent with an acute pontine infarct. Allergies codeine Allergy (Unverified 08/08/16 12:49) Unknown levofloxacin [From Levaquin] Allergy (Unverified 08/08/16 12:49) Unknown - Past Medical/Surgical History -: TIA -: HTN -: liver transplant -: IDDM -: liver transplant - Family History Family History: Reviewed- Non-Contributory - Social History Smoking Status: Former smoker Alcohol use: No CD- Drugs: No Place of Residence: Home Review of Systems 10-point ROS is otherwise unremarkable Physical Examination - Physical Exam General: Alert, In no apparent distress HEENT: Atraumatic, PERRLA, Mucous membr. moist/pink, EOMI, Sclerae nonicteric Neck: Supple, 2+ carotid pulse no bruit, No LAD, Without JVD or thyroid abnormality Respiratory: Clear to auscultation bilaterally, Normal air movement Cardiovascular: Regular rate/rhythm, Normal S1 S2 Gastrointestinal: Normal bowel sounds, No tenderness Musculoskeletal: No tenderness Integumentary: No rashes Neurological: Normal tone, Normal affect, Abnormal speech (slrurred), Abnormal strength (left lower extremity 3/5, ) - Studies Laboratory Data (last 24 hrs) 07/22/17 19:25: PT 11.9, INR 1.01, APTT 34.9 07/22/17 19:25: WBC 4.4, Hgb 11.6 L, Hct 35.2 L, Plt Count 169 04/30/18 19:25: B-Natriuretic Peptide 270 H 07/22/17 19:25: Sodium 141, Potassium 5.2 H, BUN 32 H, Creatinine 1.65 H, Glucose 110, Magnesium 3.0 H D, Total Bilirubin 1.0, AST 18, ALT 14, Alkaline Phosphatase 73, Lipase 15 L Assessment and Plan - Problems (Diagnosis) (1) HTN (hypertension) Current Visit: Yes Status: Acute Qualifiers: Hypertension type: essential hypertension Qualified Code(s): I10 - Essential (primary) hypertension (2) Acute CVA (cerebrovascular accident) Current Visit: Yes Status: Acute (3) IDDM (insulin dependent diabetes mellitus) Current Visit: Yes Status: Acute (4) History of liver transplant Current Visit: Yes Status: Acute - Plan The patient will be admitted to the hospital due to acute stroke. The patient is outside of the window for theraputic thrombolitics. Will order lipid panel, swallow evaluation, PT, and Neurology consult. Will order Plavix, carotid doppler and ECHO. - Advance Directives Does patient have a Living Will: No Does patient have a Durable POA for Healthcare: No - Code Status/Comfort Care Code Status Assessed: Yes Code Status: Full Code
[2017-07-22 22:13] LABS: Urine Blood 1+ (NEG); Urine Glucose TRACE (NEG); Urine Protein 3+ (NEG); Urine Specific Gravity 1.025 (1.005-1.030)
[2017-07-22] MEDS: NA CHLORIDE 0.9% 1,000 ML IV SCH ×2 (22:50→23:08)
[2017-07-23 04:51] LABS: Absolute Lymphocytes (CBC) 1.5 K/uL (0.7-4.9); Absolute Monocytes 0.4 K/uL (0.1-1.3); Absolute Neutrophil 2.1 K/uL (1.8-8.0); Basophils % 0.1 % (0-1.3); Eosinophils % 1.9 % (0-4.4); Hematocrit 32.5 % (36.0-45.0); Lymphocytes % 36.8 % (15.3-44.8); MCH 25.2 pg (27.0-35.0); MCV 78.3 fL (80-100); MPV 8.1 fL (7.6-11.3); Monocytes % 9.8 % (3.3-12.3); RBC Red Blood Cell Count 4.15 M/uL (3.86-4.86)
[2017-07-23 05:26] LABS: Bilirubin Total 0.8 mg/dL (0.3-1.2); Potassium 4.7 mEq/L (3.6-5.0); Protein, Total 6.1 g/dL (6.0-8.3)
[2017-07-23] MEDS: INSULIN -REGULAR HUMAN 50 UNIT/0.5 ML ML SQ SCH ×4 (06:00→18:00)
[2017-07-23] MEDS: CLOPIDOGREL 75 MG TABLET PO SCH (08:08)
--- NOTE | 2017-07-23 08:21 | RAD REPORT ---
EXAM DESCRIPTION: ERMELINDA - CP - 07/23/2017 7:46 am CLINICAL HISTORY: CVA COMPARISON: MRI July 22, CT head July 22 TECHNIQUE: Real-time sonographic evaluation of both carotid systems was performed. Doppler interroga tion was performed with waveform tracing bilaterally. FINDINGS: Normal high resistance waveforms are noted in both external carotid arteries. The common c arotid arteries and internal carotid arteries show normal low resistance waveforms. Dense calcified plaquing changes are present along with noncalcified plaques in the bilateral carotid bulbs and proximal internal carotid arteries. Velocity elevation is noted. In the right ICA velocity reaches 173 cm/second. Proximal left ICA reaches 168 cm/second. Ratios are abnormal with the ICA/ CC A ratio reaching 2.5 on the right and 2.7 on the left. External carotid elevated velocities are prese nt though external carotid stenoses are generally not considered significant. Vertebral arteries are not well visualized. Velocity values and ratios were recorded and are retained in the patient's imaging records. IMPRESSION: Extensive bilateral calcified and noncalcified plaquing in the bilateral carotid bulb an d proximal internal carotid arteries. Bilateral stenosis is present estimated up to 80%. Poor visualization of the vertebral arteries. No evidence of a hemodynamically significant stenosis.
--- NOTE | 2017-07-23 08:24 | RAD REPORT ---
EXAM DESCRIPTION: RAD - Chest Pa And Lat (2 Views) - 07/23/2017 7:23 am CLINICAL HISTORY: Stroke, shortness of breath COMPARISON: July 22 TECHNIQUE: PA and lateral views of the chest were obtained. FINDINGS: The lungs are clear of a focal mass, consolidation or significant failure finding. Patient has prominent interstitial lung disease. Minimal interstitial edema or infiltrate could be masked in this setting. Trachea is midline. Heart size is normal and central vasculature is within normal li mits. No pneumothorax seen. Minimal bilateral pleural effusions are suspected. Both posterior costop hrenic angles are blunted. No acute bony finding noted. No aortic abnormality. IMPRESSION: Chronic interstitial lung disease similar to comparison. Minimal interstitial edema or i nfiltrate could be masked. Minimal bilateral pleural fluid.
[2017-07-23 09:55] LABS: A1c Component 0.47 mg/dL; Hemoglobin A1c 6.3 % (4-6.0)
--- NOTE | 2017-07-23 12:59 | ECHO ---
HEIGHT: 5 ft 6 in WEIGHT: 235 lb 0 oz DATE OF STUDY: 07/23/[address]: 2-DIMENSIONAL: YES M.MODE: YES DOPPLER: YES COLOR FLOW: YES TDS: YES PORTABLE: NO DEFINITY: NO BUBBLE STUDY: NO DIAGNOSIS: STROKE CARDIAC HISTORY: CATHERIZATION: NO SURGERY: NO PROSTHETIC VALVE: NO PACEMAKER: NO MEASUREMENTS (cm) DIASTOLIC (NORMALS) SYSTOLIC (NORMALS) IVSd 1.4 (0.6-1.2) LA Diam 3.8 (1.9-4.0) LVEF 54% LVIDd 4.4 (3.5-5.7) LVIDs 3.2 (2.0-3.5) %FS 28% LVPWd 1.3 (0.6-1.2) Ao Diam 3.2 (2.0-3.7) 2 DIMENSIONAL ASSESSMENT: RIGHT ATRIUM: NORMAL LEFT ATRIUM: NORMAL RIGHT VENTRICLE: NORMAL LEFT VENTRICLE: LEFT VENTRICLE HYPERTROPHY TRICUSPID VALVE: NORMAL MITRAL VALVE: NORMAL PULMONIC VALVE: NORMAL AORTIC VALVE: NORMAL PERICARDIAL EFFUSION: NONE AORTIC ROOT: NORMAL LEFT VENTRICULAR WALL MOTION: NORMAL DOPPLER/COLOR FLOW: NORMAL COMMENTS: TECHNICALLY DIFFICULT STUDY. NORMAL LEFT VENTRICLE SIZE AND FUNCTION. NO PERICARDIAL EFFUSION TECHNOLOGIST: GAYLE FREED RDCS
--- NOTE | 2017-07-23 14:39 | EKG ---
Test Date: 2017-07-22 Test Time: 19:29:51 Photographic Laboratory Technician: MANDY MEASUREMENT RESULTS: Intervals: Rate: 72 LA: 178 QRSD: 100 QT: 442 QTc: 483 [place]: P: 75 LA: 178 QRS: 1 T: 76 INTERPRETIVE STATEMENTS: Normal sinus rhythm Prolonged QT Abnormal ECG Compared to ECG 08/08/2016 10:05:36 Prolonged QT interval now present Electronically Signed On 07-23-17 14:34:29 CDT by Surjit Barraza
--- NOTE | 2017-07-23 17:28 | P.PN ---
Subjective Date of Service: 07/23/17 Chief Complaint: acute CVA Subjective: Improving (weakness improving, passed swallow evaluation) Review of Systems 10-point ROS is otherwise unremarkable Physical Examination - Vital Signs Temperature: 97.4 F Blood Pressure: 175/74 Pulse: 93 Respirations: 18 Pulse Ox (%): 98 - Physical Exam General: Alert, In no apparent distress, Oriented x3 HEENT: Atraumatic, Normocephalic, PERRLA Neck: Supple, JVD not distended, No Thyromegaly, No LAD Respiratory: Clear to auscultation bilaterally, Normal air movement Cardiovascular: No edema, Normal pulses, Regular rate/rhythm, Normal S1 S2 Gastrointestinal: Normal bowel sounds, Soft and benign, Non-distended, W/out hepatosplenomegaly, No ascites, No tenderness, No masses, No rebound, No guarding Musculoskeletal: No clubbing, No swelling, No contractures, No erythema, No tenderness, No warmth Neurological: Normal speech, Normal tone, Sensation intact, Normal reflexes 2+, Abnormal strength (on right upper quadrant) - Studies Laboratory Data (last 24 hrs) 07/22/17 19:25: PT 11.9, INR 1.01, APTT 34.9 07/22/17 19:25: WBC 4.4, Hgb 11.6 L, Hct 35.2 L, Plt Count 169 07/22/17 19:25: B-Natriuretic Peptide 270 H 07/22/17 19:25: Sodium 141, Potassium 5.2 H, BUN 32 H, Creatinine 1.65 H, Glucose 110, Magnesium 3.0 H D, Total Bilirubin 1.0, AST 18, ALT 14, Alkaline Phosphatase 73, Lipase 15 L Assessment And Plan - Current Problems (Diagnosis) (1) Acute CVA (cerebrovascular accident) Onset Date: 07/23/17 Current Visit: Yes Status: Acute Plan: PT and Neurology consult placed, awaiting recs continue Plavix follow up with carotid doppler and ECHO. (2) HTN (hypertension) Onset Date: 07/23/17 Current Visit: Yes Status: Acute Plan: will restart home bp meds, goal of systolic bp not > 160 Qualifiers: Hypertension type: essential hypertension Qualified Code(s): I10 - Essential (primary) hypertension (3) History of liver transplant Current Visit: Yes Status: Acute Plan: restart home medications follow up with hepatology on discharge (4) IDDM (insulin dependent diabetes mellitus) Onset Date: 07/23/17 Current Visit: Yes Status: Acute Plan: norm RYAN Discharge Plan: Home
[2017-07-23] MEDS: NA CHLORIDE 0.9% 1,000 ML IV SCH (18:20)
--- NOTE | 2017-07-23 20:17 | RAD REPORT ---
EXAM DESCRIPTION: MRI - MRA Head Wo Cont - 07/23/2017 8:03 pm CLINICAL HISTORY: CVA COMPARISON: None. FINDINGS: 3D noncontrast [id number] MR angiography of the [place] was performed. No flow-limiting stenosis, vascular malformation or aneurysm is detected. Forward flow seen in codomi nant vertebral arteries. IMPRESSION: No significant flow abnormality of the [place] is identified.
--- NOTE | 2017-07-23 20:29 | RAD REPORT ---
EXAM DESCRIPTION: MRA Neck W/Wo Cont CLINICAL HISTORY: CVA COMPARISON: Recent [facility] imaging studies. FINDINGS: Contrast enhance 2D [id number] MR angiography of the neck vessels was performed. Focal stenosis is identified involving the proximal right internal carotid artery distally to the car otid bulb, estimated stenosis is 90%. A mild stenosis of the proximal left internal carotid artery is noted distal to the bulb estimated at 25-30%. Forward flow is noted in both vertebral arteries. IMPRESSION: Focal significant stenosis is identified in the proximal right ICA distal to the carotid bulb, estimated at 90%
[2017-07-23] MEDS ORDERED: ATORVASTATIN 40 MG TAB PO SCH (21:00)
[2017-07-23] MEDS: ENOXAPARIN 40 MG/0.4 ML SQ SCH (21:22)
--- NOTE | 2017-07-24 00:31 | CON ---
Date of Consultation: 07/23/2017 Reason For Consultation: Stroke. History Of Present Illness: A 62-year-old lady with history of prior stroke, liver transplant 3 years ago, hypertension, and diabetes, who of last week developed left facial paresthesias and dysarthria as well as dysphagia. She thought the problem would improve, but it did not; and so, family finally urged her to come to the emergency department. She was normally on aspirin, but had an admission to a different hospital, and that medication was not on her discharge medication list. So, she figured that they wanted her to stop taking it. So, she discontinued. Came to the emergency department last night with the aforementioned symptoms. CT scan of the brain; low-density areas in the right thalamus and right basal ganglia. MRI was then performed, demonstrating acute infarct, left kameron, a 10-mm and a 5-mm infarct. The patient has improved somewhat. Lipids demonstrate an LDL of 84. She is on Plavix and sliding scale insulin currently. Speech therapy. No aspiration. Thin liquid, regular solids, standard aspiration precautions recommended. Physical Therapy has seen the patient as well. Neurologic consultation was requested. Past Medical History: As alluded to. Medications: Routinely, Norvasc, B12, aspirin as noted, Ultram, and tacrolimus. Social History: . Smokes. Independent with basic activities of daily living. Family History: Noncontributory. Review of Systems: General: General good health given her past medical history. Eyes: Diabetic retinopathy. Ears, Nose, Throat: Dysarthria and dysphagia. Cardiovascular: Hypertension. Pulmonary: Negative. Gastrointestinal: Liver transplant. Genitourinary: Negative. Musculoskeletal: Negative. Neurologic: As noted. Psychiatric: Negative. Endocrine: Diabetes. Hematologic: Negative. Physical Examination: Vital Signs: Temperature 97.4, heart rate 93, respiratory rate 18, and blood pressure 175/74. General: Pleasant lady, sitting in bed, in no distress. Heart: Sinus rhythm. Right carotid bruit. Lungs: Clear. Abdomen: Soft. Bowel sounds present. Extremities: 2+ edema in the lower extremities. Neurologic: She is awake, alert, and oriented. No aphasia. Mild dysarthria. Pupils are reactive. Ocular motion full with a rotatory nystagmus on right gaze. Facial strength normal. Sensation intact. Tongue midline. Soft palate elevates bilaterally. Examination of her extremities reveals 4+ right hemiparesis. Sensation decreased to temperature, right upper extremity. Reflexes 1/4 toes bilaterally upgoing. Cerebellar examination demonstrates mild osjuui-rszy-gwnzli ataxia on the left. Stroke scale is 5. Impression: Acute ischemic stroke. Labs as noted. Echocardiogram was unremarkable. Carotid Doppler demonstrated bilateral carotid stenosis, 80%, but the patient is not symptomatic from that. It just should be followed with serial Dopplers and potentially intervene if it is noted to worsen. I recommend continuing the Plavix, adding statin, maximum medical therapy. MRA of posterior circulation. Continue to follow with Speech Therapy. Deep venous thrombosis prophylaxis. Thank you for the consult. JEAN-CLAUDE Voice ID: [id number] Report ID: [id number] SMILEY
[2017-07-24] MEDS: NA CHLORIDE 0.9% 1,000 ML IV SCH (01:02)
[2017-07-24 05:33] LABS: Thyroid Stimulating Hormone 1.18 uIU/mL (0.34-5.60)
[2017-07-24 06:21] LABS: Potassium 4.3 mEq/L (3.6-5.0)
[2017-07-24] MEDS: INSULIN -REGULAR HUMAN 50 UNIT/0.5 ML ML SQ SCH ×3 (07:30→11:30)
[2017-07-24] MEDS: CLOPIDOGREL 75 MG TABLET PO SCH (10:21)
[2017-07-24] MEDS: ENOXAPARIN 40 MG/0.4 ML SQ SCH (10:21)
--- NOTE | 2017-07-24 15:53 | P.DS ---
Admission Date: 07/22/17 Discharge Date: 07/24/17 Disposition: DC HOME/HOME HEALTH CARE Discharge Condition: FAIR Reason for Admission: acute CVA Consultations: Neurology Dr Roberts - Problems (1) Acute CVA (cerebrovascular accident) Onset Date: 07/23/17 Current Visit: Yes Status: Acute (2) HTN (hypertension) Onset Date: 07/23/17 Current Visit: Yes Status: Acute Qualifiers: Hypertension type: essential hypertension Qualified Code(s): I10 - Essential (primary) hypertension (3) History of liver transplant Current Visit: Yes Status: Acute (4) IDDM (insulin dependent diabetes mellitus) Onset Date: 07/23/17 Current Visit: Yes Status: Acute Brief History of Present Illness: 62 years old woman with history of HTN, TIA's, IDDM, liver transplant, who start about 4 days ago with sudden episode of slurred speech, associated with left side weakness. The patient improved her weaknes but disarthria persist. She also is complaining of swallowing problems since the symptoms started. The patient states that she should be taking Aspirin every day, but she was not compliant. Brain CT and then MRI were consistent with an acute pontine infarct. Hospital Course: Patient was admitted to the floor.she was seen by neurology who started her on statin.She was also evaluated by Speech/PT/OT. she was deemed safe to be discharged with home PT and this was set up by social sciences instructor on discharge. Vital Signs/Physical Exam: Temp Pulse Resp BP Pulse Ox 98.1 F 69 18 161/52 H 96 07/24/17 12:00 07/24/17 12:00 07/24/17 12:00 07/24/17 12:00 07/24/17 12:00 General: Alert, In no apparent distress, Oriented x3 HEENT: Atraumatic, Normocephalic, PERRLA Neck: Supple, JVD not distended, No Thyromegaly, No LAD Respiratory: Clear to auscultation bilaterally, Normal air movement Cardiovascular: No edema, Normal pulses, Regular rate/rhythm, Normal S1 S2 Gastrointestinal: Soft and benign, Non-distended, W/out hepatosplenomegaly Musculoskeletal: No clubbing, No swelling, No contractures, No erythema, No tenderness Neurological: Sensation intact, Cranial nerves 3-12 intact Laboratory Data at Discharge: WBC 4.0 K/uL (4.3-10.9) L 07/23/17 03:30 Hgb 10.5 g/dL (12.0-15.0) L 07/23/17 03:30 Hct 32.5 % (36.0-45.0) L 07/23/17 03:30 Plt Count 155 K/uL (152-406) 07/23/17 03:30 PT 11.9 SECONDS (9.5-12.5) 07/22/17 19:25 INR 1.01 07/22/17 19:25 APTT 34.9 SECONDS (24.3-36.9) 07/22/17 19:25 Sodium 141 mEq/L (135-145) 07/23/17 03:30 Potassium 4.3 mEq/L (3.6-5.0) 07/24/17 03:33 BUN 30 mg/dL (6-20) H 07/23/17 03:30 Creatinine 1.67 mg/dL (0.44-1.00) H 07/23/17 03:30 Glucose 128 mg/dL (65-120) H 07/23/17 03:30 Magnesium 3.0 mg/dL (1.8-2.5) H D 07/22/17 19:25 Total Bilirubin 0.8 mg/dL (0.3-1.2) 07/23/17 03:30 AST 18 IU/L (10-42) 07/23/17 03:30 ALT 12 IU/L (10-60) 07/23/17 03:30 Alkaline Phosphatase 67 IU/L (42-121) 07/23/17 03:30 B-Natriuretic Peptide 270 pg/ml (<=100) H 07/22/17 19:25 Triglycerides 225 mg/dL (35-160) H 07/23/17 03:30 Cholesterol 162 mg/dL (<200) 07/23/17 03:30 HDL Cholesterol 33 mg/dL (29-89) 07/23/17 03:30 Cholesterol/HDL Ratio 4.91 07/23/17 03:30 Lipase 15 U/L (22-51) L 07/22/17 19:25 Home Medications: Amlodipine Besylate 10 mg PO DAILY 07/23/17 Aspirin 81 mg PO DAILY 07/23/17 B12/Levomefolate Calcium/B-6 [Folbic Rf Tablet] 1 each PO DAILY 07/23/17 Clopidogrel Bisulfate [Plavix*] 75 mg PO DAILY tablet 07/23/17 Insulin -Regular Human [Novolin -R*] See Protocol SQ Q6HR ml 07/23/17 Insulin Glargine,Hum.rec.anlog [Zach Chinchilla] 300 units SQ BID 07/23/17 Metoprolol Tartrate 100 mg PO BID 07/23/17 [place]-3/Dha/Epa/Fish Oil [Fish Oil 1,000 mg Softgel] 1,000 mg PO DAILY 07/23/17 Pharmacy Consult 1 ea XX DAILYPRN PRN each 07/23/17 Tacrolimus [Astagraf Xl] 5 mg PO Q12HR 07/23/17 Tramadol HCl [Ultram] 50 mg PO BID 07/23/17 Atorvastatin Calcium [Lipitor] 40 mg PO BEDTIME 30 Days #30 tab 07/24/17 New Medications: Atorvastatin Calcium [Lipitor] 40 mg PO BEDTIME 30 Days #30 tab Patient Discharge Instructions: return to ER for new or worsening symptoms. follow up with PCP in 1 week Diet: ADA Activity: as tolerated per PT RECS Physician Review: Patient Assessed, Agree with Above Assessment and Plan Time spent managing pt's care (in minutes): 30
== END 2017-07-24 15:03 | disposition home or self-care (01) | DRG 65 ==
LOC: ER 17:12 → OBSVTOIN 19:56 → ERHOLD 19:56 → 4TH 22:03
PROVIDERS: ADMIT Internal Medicine; ATTEND Internal Medicine
DX: I63.9 Cerebral infarction, unspecified (principal); Z94.4 Liver transplant status; R47.1 Dysarthria and anarthria; R13.10 Dysphagia, unspecified; I10 Essential (primary) hypertension; E11.9 Type 2 diabetes mellitus without complications; F17.210 Nicotine dependence, cigarettes, uncomplicated
CPT/HCPCS: 36415; 70450; 70544; 70549; 70551; 71045; 71046; 80048; 80053; 80061; 80076; 81003; 82550; 82553; 82607; 82962; 83036; 83690; 83735; 83880; 84132; 84443; 84484; 85025; 85610; 85652; 85730; 86140; 87086; 87088; 93005; 93306; 93880; 96365; 97163; 99285; A9577; J0696; J1650; J7030

== ENCOUNTER 2018-08-13 15:24 | Inpatient (IN) | payer OTHER ==
[2018-08-13] MEDS: INSULIN -REGULAR HUMAN 50 UNIT/0.5 ML ML SQ SCH ×3 (16:30→21:39)
[2018-08-13] MEDS ORDERED: GLUCAGON 1 MG/VIAL IM PRN (16:44)
[2018-08-13] MEDS ORDERED: D50W 25 GM/50 ML SYRINGE IV PRN (16:44)
--- NOTE | 2018-08-13 16:53 | P.HP ---
Certification for Inpatient Patient admitted to: Inpatient With expected LOS: >2 Midnights Practitioner: I am a practitioner with admitting privileges, knowledge of patient current condition, hospital course, and medical plan of care. Services: Services provided to patient in accordance with Admission requirements found in Title 42 Section 412.3 of the Code of Federal Regulations Patient History Date of Service: 08/13/18 Primary Care Provider: Dr. Tejeda Reason for admission: KRISTIAN History of Present Illness: This is a 63-year-old female with history of diabetes, hypertension, history of liver cancer status post liver transplant 4 years ago, Currently on Prograf admitted directly from 's office for acute kidney injury. Patient had a liver transplant 4 years ago, currently on Prograf. She undergoes blood work every 90 days and 1 week ago she had blood work done and was told to see a kidney specialist. She saw Dr. Rawls in his office today and was sent to the hospital for admission. In 2018, Patient's creatinine was 1.6, GFR 31. 1 week ago, creatinine is 2.9 with a GFR of 16. Patient complains of bilateral lower extremity swelling for the past 2 years that has been worsening progressively. She also complains of feeling tired for the past year that has been progressive. Otherwise, she denies any complaints of chest pain, shortness of breath, headache, vision changes, nausea, vomiting, and GI or complaints. At the time of my exam, patient was alert oriented x3, in no acute distress and hemodynamically stable. She was admitted for further evaluation of for KRISTIAN and anasarca. Allergies codeine Allergy (Verified 07/23/17 07:10) Unknown levofloxacin [From Levaquin] Allergy (Verified 07/23/17 07:10) Unknown Home medications list reviewed: Yes Home Medications: Amlodipine Besylate 10 mg PO DAILY 07/23/17 Insulin Glargine,Hum.rec.anlog [Zach Chinchilla] 35 units SQ BEDTIME 07/23/17 Metoprolol Tartrate 100 mg PO BID 07/23/17 Tacrolimus [Astagraf Xl] 5 mg PO Q12HR 07/23/17 Tramadol HCl [Ultram] 50 mg PO BID 07/23/17 Atorvastatin Calcium [Lipitor] 40 mg PO DAILY 08/13/18 - Past Medical/Surgical History Has patient received pneumonia vaccine in the past: Yes Diabetic: Yes -: TIA -: HTN -: liver transplant -: IDDM -: Liver Cancer -: neuropathy -: liver transplant - Family History Mother -: Stroke - Social History Smoking Status: Former smoker Alcohol use: No CD- Drugs: Yes Caffeine use: No Place of Residence: Home Review of Systems 10-point ROS is otherwise unremarkable Physical Examination - Physical Exam General: Alert, In no apparent distress, Oriented x3 HEENT: Atraumatic, PERRLA, Mucous membr. moist/pink, EOMI, Sclerae nonicteric Neck: Supple, 2+ carotid pulse no bruit, No LAD, Without JVD or thyroid abnormality Respiratory: Clear to auscultation bilaterally, Normal air movement Cardiovascular: Regular rate/rhythm, Normal S1 S2, Edema (Bilateral lower extremity, up to knee, 3+ pitting) Gastrointestinal: Normal bowel sounds, No tenderness Musculoskeletal: No tenderness Integumentary: No rashes Neurological: Normal gait, Normal speech, Normal strength at 5/5 x4 extr, Normal tone, Normal affect Lymphatics: No axilla or inguinal lymphadenopathy Assessment and Plan - Problems (Diagnosis) (1) Acute kidney failure Current Visit: Yes Status: Acute Plan: This could be secondary to Prograf versus kidney disease from diabetes/ hypertension versus rejection Renal workup pending Dr. Rawls consulted, awaiting recommendations. Avoided nephrotoxic medications Qualifiers: Acute renal failure type: unspecified Qualified Code(s): N17.9 - Acute kidney failure, unspecified (2) Anasarca Current Visit: Yes Status: Acute Plan: Likely secondary to renal disease Will continue to monitor. (3) HTN (hypertension) Onset Date: 07/23/17 Current Visit: No Status: Acute Qualifiers: Hypertension type: essential hypertension Qualified Code(s): I10 - Essential (primary) hypertension (4) IDDM (insulin dependent diabetes mellitus) Onset Date: 07/23/17 Current Visit: No Status: Acute Plan: Accu-Cheks and mild sliding scale insulin. Resume home insulin medication. Continue to monitor blood glucose levels. Patient will need strict control of her blood sugars (5) History of liver transplant Current Visit: No Status: Chronic Plan: Hold Prograf this time. No evidence of ascites on exam. (6) History of liver cancer Current Visit: No Status: Chronic - Plan DVT prophylaxis: Lovenox, renally dosed GI prophylaxis: None Diet: Renal diet, fluid restriction Disposition: Admit to floor with tele. Pending symptomatic improvement and renal workup. - Advance Directives Does patient have a Living Will: No Does patient have a Durable POA for Healthcare: No
[2018-08-13] MEDS ORDERED: NA CHLORIDE 0.9% 1,000 ML IV SCH (17:00)
[2018-08-13] MEDS ORDERED: ENOXAPARIN 30 MG/0.3 ML SQ SCH (17:00)
--- OUTSIDE RECORDS SUMMARY | 2018-08-13 17:01 | XMS REPORT ---
:1955 Author Organization [facility] Address [address] [place] [address] [address]. [address] [place] [address] Care Team Providers Name Role Phone SHERLY DOUGLAS Unavailable Unavailable ALLIE RAMIREZ Unavailable Unavailable Problems This patient has [...] RNA not detected HCV RNA not detected [id number]) This test uses a Real-Time Polymerase Chain Reaction (RT-PCR) methodology and was performed using LAZ Ampliprep/LAZ TaqMan HCV test kit version 2.0 ( [employer]).Reportable range for this assay is 15 - 100,000, 000 IU per mL (1.18 - 8.00 Log IU/mL).TACROLIMUS [id number] 13:46:00 Test Item Value Reference Range Comments TACROLIMUS BLOOD (BEAKER) (test yefl=954) 9.6 ng/mL 10.0-20.0 ALPHA FETOPROTEIN (AFP), TUMOR [id number] 13:23:00 Test Item Value Reference Range Comments ALPHA-FETOPROTEIN (BEAKER) (test igar=7113) < ng/mL <10.0 Effective 02/09/2014: Reference Range ChangeNew: <10.0 Previous: 0.0- [id number] 13:04:00 Test Item Value Reference Range Comments PHOSPHORUS (BEAKER) (test lajr=342) 4.5 mg/dL 2.3-4.7 [id number] 13:04:00 Test Item Value Reference Range Comments MAGNESIUM (BEAKER) (test ngbb=432) 2.3 mg/dL 1.6-2.6 COMPREHENSIVE METABOLIC [id number] 13:04:00 Test Item Value Reference Range Comments TOTAL PROTEIN (BEAKER) 6.7 gm/dL 6.0-8.3 (test hfwc=373) ALBUMIN (BEAKER) (test 3.5 g/dL 3.5-5.0 wgfu=8347) ALKALINE PHOSPHATASE 120 U/L 40-150 (BEAKER) (test znbd=037) BILIRUBIN TOTAL (BEAKER) 0.7 mg/dL 0.2-1.2 (test ytwq=274) SODIUM (BEAKER) (test 140 meq/L 136-145 sewm=306) POTASSIUM (BEAKER) (test 5.1 meq/L 3.5-5.1 tjge=339) CHLORIDE (BEAKER) (test 108 meq/L 98-107 ybjy=922) CO2 (BEAKER) (test 22 meq/L 22-29 onkc=192) BLOOD UREA NITROGEN 37 mg/dL 7-21 (BEAKER) (test nhto=752) CREATININE (BEAKER) (test 1.16 mg/dL 0.57-1.25 flio=377) GLUCOSE RANDOM (BEAKER) 214 mg/dL 70-105 (test lwgd=981) CALCIUM (BEAKER) (test 9.1 mg/dL 8.4-10.2 cwem=001) AST (SGOT) (BEAKER) (test 16 U/L 5-34 jsfj=576) ALT (SGPT) (BEAKER) (test 17 U/L 6-55 ojrr=841) EGFR (BEAKER) (test 47 mL/min/1.73 sq m ESTIMATED GFR IS NOT rwno=5626) ACCURATE CREATININE CLEARANCE IN PREDICTING GLOMERULAR FILTRATION RATE. ESTIMATED GFR IS NOT APPLICABLE FOR DIALYSIS PATIENTS. LIPID [id number] 13:04:00 Test Item Value Reference Range Comments TRIGLYCERIDES (BEAKER) (test zdbx=988) 170 mg/dL CHOLESTEROL (BEAKER) (test lbwe=807) 175 mg/dL HDL CHOLESTEROL (BEAKER) (test qias=394) 52 mg/dL LDL CHOLESTEROL CALCULATED (BEAKER) (test 89 mg/dL ttew=440) Triglyceride Reference Range: Low Risk <150 Borderline 150- 199 High Risk 200-499 Very High Risk >=500Cholesterol Reference Range: Low Risk <200 Borderline 200-239 High Risk > 240HDL Cholesterol Reference Range: Low Risk >=60 High Risk <40LDL Cholesterol Reference Range: Optimal <100 Near Optimal 100-129 Borderline 130-159 High 160-189 Very High >=190BILIRUBIN, [id number] 13:04:00 Test Item Value Reference Range Comments BILIRUBIN DIRECT (BEAKER) (test binr=598) 0.2 mg/dL 0.1-0.5 CBC W/PLT COUNT & AUTO [id number] 12:37:00 Test Item Value Reference Range Comments WHITE BLOOD CELL COUNT (BEAKER) (test gqoi=808) 5.8 K/ L 4.0-10.0 RED BLOOD CELL COUNT (BEAKER) (test obgu=144) 4.55 M/ L 4.00-5.00 HEMOGLOBIN (BEAKER) (test rbft=585) 12.6 GM/DL 12.0-15.0 HEMATOCRIT (BEAKER) (test djqw=824) 37.1 % 36.0-45.0 MEAN CORPUSCULAR VOLUME (BEAKER) (test wrgh=809) 81.5 fL 82.0-99.0 MEAN CORPUSCULAR HEMOGLOBIN (BEAKER) (test 27.7 pg 27.0-33.0 feem=364) MEAN CORPUSCULAR HEMOGLOBIN CONC (BEAKER) (test 34.0 GM/DL 32.0-36.0 ciwf=630) RED CELL DISTRIBUTION WIDTH (BEAKER) (test 13.1 % 10.3-14.2 fkho=626) PLATELET COUNT (BEAKER) (test qcoz=060) 158 K/CU MM 150-430 MEAN PLATELET VOLUME (BEAKER) (test jlho=837) 7.3 fL 6.5-10.5 NUCLEATED RED BLOOD CELLS (BEAKER) (test 0 /100 WBC 0-0 eovy=371) NEUTROPHILS RELATIVE PERCENT (BEAKER) (test 51 % mxuq=447) LYMPHOCYTES RELATIVE PERCENT (BEAKER) (test 27 % jvaz=510) MONOCYTES RELATIVE PERCENT (BEAKER) (test 21 % gldj=054) EOSINOPHILS RELATIVE PERCENT (BEAKER) (test 2 % fwaf=754) BASOPHILS RELATIVE PERCENT (BEAKER) (test 0 % smej=471) NEUTROPHILS ABSOLUTE COUNT (BEAKER) (test 2.94 K/ L 1.80-8.00 vmwo=304) LYMPHOCYTES ABSOLUTE COUNT (BEAKER) (test 1.54 K/ L 1.48-4.50 dfzg=300) MONOCYTES ABSOLUTE COUNT (BEAKER) (test 1.19 K/ L 0.00-1.30 edxv=122) EOSINOPHILS ABSOLUTE COUNT (BEAKER) (test 0.10 K/ L 0.00-0.50 fwtu=056) BASOPHILS ABSOLUTE COUNT (BEAKER) (test 0.02 K/ L 0.00-0.20 pgpr=324) 0.00POCT-GLUCOSE [id number] 13:29:00 Test Item Value Reference Range Comments POC-GLUCOSE METER (BEAKER) 77 mg/dL 70-110 TESTED AT [address] (test vqls=0322) [place] [id number] POCT-GLUCOSE [id number] 13:28:00 Test Item Value Reference Range Comments POC-GLUCOSE METER (BEAKER) 100 mg/dL 70-110 TESTED AT [address] (test foid=2442) [place] [id number] POCT-GLUCOSE [id number] 12:04:00 Test Item Value Reference Range Comments POC-GLUCOSE METER (BEAKER) 69 mg/dL 70-110 TESTED AT [address] (test shtg=3173) [facility] [address] CREATINE KINASE (CK), TOTAL AND [id number] 09:47:00 Test Item Value Reference Range Comments CREATINE KINASE TOTAL (BEAKER) (test qaqv=235) 38 U/L 29-200 CREATINE KINASE-MB (BEAKER) (test qojy=942) 1.1 ng/mL 0.0-6.6 CREATINE KINASE-MB INDEX (BEAKER) (test anqe=501) 2.9 % Effective 02/09/2014: CK-MB Reference Range ChangeNew: 0.0-6.6 Previous: 0.0- 4.9CK-MB Reference Range:<6.7 Normal6.7-10.0 Borderline>10.0 AbnormalTACROLIMUS [id number] 09:04:00 Test Item Value Reference Range Comments TACROLIMUS BLOOD (BEAKER) (test hfpc=401) 9.5 ng/mL 10.0-20.0 TROPONIN [id number] 08:43:00 Test Item Value Reference Range Comments TROPONIN I (BEAKER) (test jjwn=043) 0.01 ng/mL 0.00-0.03 Effective 02/09/2014: Reference Range [...] acute neurological disease, and persistent tachyarrhythmia.HEPATIC FUNCTION [id number] 05:43:00 Test Item Value Reference Range Comments TOTAL PROTEIN (BEAKER) (test ndrc=665) 6.0 gm/dL 6.0-8.3 ALBUMIN (BEAKER) (test bmpi=5522) 3.3 g/dL 3.5-5.0 BILIRUBIN TOTAL (BEAKER) (test hzoh=404) 1.0 mg/dL 0.2-1.2 BILIRUBIN DIRECT (BEAKER) (test nrmm=728) 0.3 mg/dL 0.1-0.5 ALKALINE PHOSPHATASE (BEAKER) (test ujox=507) 87 U/L 40-150 AST (SGOT) (BEAKER) (test bfst=372) 13 U/L 5-34 ALT (SGPT) (BEAKER) (test ukqh=732) 10 U/L 6-55 BASIC METABOLIC [id number] 05:43:00 Test Item Value Reference Range Comments SODIUM (BEAKER) (test 141 meq/L 136-145 lyos=070) POTASSIUM (BEAKER) (test 4.6 meq/L 3.5-5.1 gouu=125) CHLORIDE (BEAKER) (test 113 meq/L 98-107 rbji=719) CO2 (BEAKER) (test 23 meq/L 22-29 mrvz=089) BLOOD UREA NITROGEN 19 mg/dL 7-21 (BEAKER) (test emyi=321) CREATININE (BEAKER) (test 0.87 mg/dL 0.57-1.25 vapo=883) GLUCOSE RANDOM (BEAKER) 76 mg/dL 70-105 (test rsyk=912) CALCIUM (BEAKER) (test 8.8 mg/dL 8.4-10.2 tjyy=045) EGFR (BEAKER) (test 66 mL/min/1.73 sq m ESTIMATED GFR IS NOT ffnp=5714) ACCURATE CREATININE CLEARANCE IN PREDICTING GLOMERULAR FILTRATION RATE. ESTIMATED GFR IS NOT APPLICABLE FOR DIALYSIS PATIENTS. CBC W/PLT COUNT & AUTO [id number] 05:33:00 Test Item Value Reference Range Comments WHITE BLOOD CELL COUNT (BEAKER) (test uegj=032) 4.3 K/ L 4.0-10.0 RED BLOOD CELL COUNT (BEAKER) (test gctc=996) 4.27 M/ L 4.00-5.00 HEMOGLOBIN (BEAKER) (test xttc=200) 11.8 GM/DL 12.0-15.0 HEMATOCRIT (BEAKER) (test ojnb=412) 33.3 % 36.0-45.0 MEAN CORPUSCULAR VOLUME (BEAKER) (test mnpj=488) 77.8 fL 82.0-99.0 MEAN CORPUSCULAR HEMOGLOBIN (BEAKER) (test 27.6 pg 27.0-33.0 vbav=171) MEAN CORPUSCULAR HEMOGLOBIN CONC (BEAKER) (test 35.5 GM/DL 32.0-36.0 qpat=112) RED CELL DISTRIBUTION WIDTH (BEAKER) (test 14.4 % 10.3-14.2 ctyd=785) PLATELET COUNT (BEAKER) (test slcu=490) 136 K/CU MM 150-430 MEAN PLATELET VOLUME (BEAKER) (test cqag=939) 7.0 fL 6.5-10.5 NUCLEATED RED BLOOD CELLS (BEAKER) (test 0 /100 WBC 0-0 iypw=299) NEUTROPHILS RELATIVE PERCENT (BEAKER) (test 47 % cgek=332) LYMPHOCYTES RELATIVE PERCENT (BEAKER) (test 34 % pelj=974) MONOCYTES RELATIVE PERCENT (BEAKER) (test 16 % bgxq=650) EOSINOPHILS RELATIVE PERCENT (BEAKER) (test 2 % vvgk=599) BASOPHILS RELATIVE PERCENT (BEAKER) (test 1 % xwvq=360) NEUTROPHILS ABSOLUTE COUNT (BEAKER) (test 2.00 K/ L 1.80-8.00 cegw=956) LYMPHOCYTES ABSOLUTE COUNT (BEAKER) (test 1.47 K/ L 1.48-4.50 napz=536) MONOCYTES ABSOLUTE COUNT (BEAKER) (test 0.70 K/ L 0.00-1.30 mwpa=670) EOSINOPHILS ABSOLUTE COUNT (BEAKER) (test 0.09 K/ L 0.00-0.50 ybaw=198) BASOPHILS ABSOLUTE COUNT (BEAKER) (test 0.04 K/ L 0.00-0.20 xsxf=734) 0.00TROPONIN [id number] 22:47:00 Test Item Value Reference Range Comments TROPONIN I (BEAKER) (test hwlm=975) < ng/mL 0.00-0.03 Effective 02/09/2014: Reference Range [...] acidosis, acute neurological disease, and persistent tachyarrhythmia.POCT-GLUCOSE [id number] 21:47:00 Test Item Value Reference Range Comments POC-GLUCOSE METER (BEAKER) 183 mg/dL 70-110 TESTED AT [facility] [address] [facility] (test zgwh=9924) [facility] [address] CREATINE KINASE (CK), TOTAL AND [id number] 16:27:00 Test Item Value Reference Range Comments CREATINE KINASE TOTAL (BEAKER) (test crfk=636) 36 U/L 29-200 CREATINE KINASE-MB (BEAKER) (test iqkg=109) 1.4 ng/mL 0.0-6.6 CREATINE KINASE-MB INDEX (BEAKER) (test rysw=125) 3.9 % Effective 02/09/2014: CK-MB Reference Range ChangeNew: 0.0-6.6 Previous: 0.0- 4.9CK-MB Reference Range:<6.7 Normal6.7-10.0 Borderline>10.0 AbnormalTROPONIN [id number] 16:27:00 Test Item Value Reference Range Comments TROPONIN I (RAJI) (test qdgu=993) < ng/mL 0.00-0.03 Effective 02/09/2014: Reference Range [...] acidosis, acute neurological disease, and persistent tachyarrhythmia.POCT-GLUCOSE [id number] 16:09:00 Test Item Value Reference Range Comments POC-GLUCOSE METER (RAJI) 95 mg/dL 70-110 TESTED AT [facility] [address] (test nzvt=4316) [facility] [address]
--- OUTSIDE RECORDS SUMMARY | 2018-08-13 17:01 | XMS REPORT | Clinical Summary ---
:1955 Author Organization [facility] Address [address] [place] [address] Care Team Providers Name Role Phone Will Tejeda Primary Care Provider Allergies Active Allergy Reactions Severity Noted Date Comments Codeine Rash Low 10/29/2013 Levofloxacin 09/30/2014 Itching,rednes and burning on the site only. Medications Medication Sig Dispensed Refills Start End Status Date Date blood sugar diagnostic Test 4 times 100 strip 3 Active (EASY TOUCH) daily, each meal 015 StrpIndications: and at bedtime. Diabetes (HCC) amLODIPine (NORVASC) 5 Take 5 mg by 0 Active MG tablet mouth daily . 015 INSULIN Inject 35 Units 0 Active GLARGINE,HUM.REC.ANLOG subcutaneously (TOUJEO SOLOSTAR SUBQ) once at bedtime . calcium Take 1 tablet by 0 Active carbonate-vitamin D3 mouth 2 (two) (OSCAL-D) 500 times daily with mg(1,250mg) -200 unit breakfast and per tablet dinner. cyanocobalamin Take 1,000 mcg by 0 Active (VITAMIN B-12) 1000 mouth daily. MCG tablet metoprolol (TOPROL-XL) Take 100 mg by 0 Active 100 MG 24 hr tablet mouth 2 (two) times daily. traMADol (ULTRAM) 50 Take 50 mg by 0 Active mg tablet mouth every 6 (six) hours as needed for Pain. hydroCHLOROthiazide Take 12.5 mg by 0 Active (MICROZIDE) 12.5 mg mouth daily. capsule tacrolimus (PROGRAF) 1 Take 5 capsules 300 capsule 5 Active MG capsuleIndications: (5 mg total) by HCC (hepatocellular mouth 2 (two) carcinoma) (HCC), times daily. Liver replaced by transplant (HCC) tacrolimus (PROGRAF) 1 Take 5 capsules 900 capsule 1 02/12/ Discontinued MG capsuleIndications: (5 mg total) by 2017 HCC (hepatocellular mouth 2 (two) carcinoma) (HCC), times daily. Liver replaced by transplant (HCC) tacrolimus (PROGRAF) 1 Take 5 capsules 140 capsule 0 07/02/ Discontinued MG capsuleIndications: (5 mg total) by 2018 HCC (hepatocellular mouth 2 (two) carcinoma) (HCC), times daily. Liver replaced by transplant (HCC) Active Problems Problem Noted Date Chest pain 08/08/2016 Immunosuppression 10/18/2014 Last Assessment & Plan: On prograf maintenance- will adjust according to level. CKD (chronic kidney disease) 10/18/2014 Last Assessment & Plan: Kidney function has recovered. Dr. Saini following. Hyperkalemia 10/14/2014 Last Assessment & Plan: Resolved with discontinuation of losartan and avoidance of K in diet, while on prograf. Continue to monitor- labs pending. Liver replaced by transplant 09/30/2014 Last Assessment & Plan: Excellent graft function. Type 2 diabetes mellitus with diabetic polyneuropathy, with long-term 2013 current use of insulin Last Assessment & Plan: Blood sugars controlled. Obesity (BMI 30-39.9) 12/17/2013 Last Assessment & Plan: Patient has not yet started to diet. Patient uses a walker but seems motivated to make changes. States she has lost 45 pounds in anticipation of transplant. Lipid profile looks good on last lab draw. Portal hypertension 10/29/2013 Last Assessment & Plan: Manifested by thrombocytopenia. HCC (hepatocellular carcinoma) 10/29/2013 Last Assessment & Plan: 2 foci [...] Encounters Date Type Specialty Care Team Description 07/02/2018 Telephone Transplant Hepatology Shiela Weems, Medication Refill RN 02/12/2018 Orders Only Transplant Hepatology Shiela Weems, HCC ( hepatocellular carcinoma) (HCC); RN Liver replaced by transplant (HCC) after 08/12/2017 Immunizations Name Dates Previously Given Next Due [...] Assigned at Date Recorded Not on file Job Start Date Occupation Industry Not on file Not on file Not on file Travel History Travel Start Travel End No recent travel history available. Last Filed Vital Signs Not on file Plan of Treatment Not on file Implants Implanted Type Area Admissions Counselor Device Shelf Model / Identifier Expiration Serial / Date Lot Angio-Seal Vip Right: [employer] 10/22/2014 [id number] / Implanted: Qty: 1 on 02/16/2014 by Darío Shearer MD [id number] / [id number] Results Not on fileafter 08/12/2017 Insurance Payer Benefit Plan / Subscriber ID Type Phone Address Group BLUE CROSS/BLUE BCBS PPO POS EPO xxxxxxxxxxxx PPO [phone] [address] [place] [address] Advance Directives For more information, please contact:[address] [phone] Code Status Date Activated Date Inactivated Comments Full Code 08/08/2016 2:34 PM 08/09/2016 7:38 PM This code status was determined by: Patient Full Code 11/17/2014 10:42 AM 11/17/2014 7:20 PM This code status was determined by: Patient Full Code 10/14/2014 2:08 PM 10/14/2014 5:04 PM This code status was determined by: Patient Full Code 09/30/2014 11:24 AM 10/06/2014 7:28 PM This code status was determined by: Patient Full Code 09/30/2014 1:42 AM 09/30/2014 11:24 AM This code status was determined by: Patient
[2018-08-13 17:04] LABS: Absolute Lymphocytes (CBC) 1.7 K/uL (0.7-4.9); Absolute Monocytes 0.5 K/uL (0.1-1.3); Absolute Neutrophil 2.8 K/uL (1.8-8.0); Basophils % 3.1 % (0-1.3); Eosinophils % 1.8 % (0-4.4); Hematocrit 29.8 % (36.0-45.0); Lymphocytes % 31.6 % (15.3-44.8); MPV 7.3 fL (7.6-11.3); Monocytes % 10.1 % (3.3-12.3)
[2018-08-13 17:54] LABS: Bilirubin Total 0.7 mg/dL (0.2-1.0)
[2018-08-13 17:58] LABS: Potassium 5.9 mmol/L (3.5-5.1)
[2018-08-13] MEDS ORDERED: CALCIUM GLUC 10% INJ 4.65 MEQ in NA CHLORIDE 0.9% 100 ML IV ONE (19:00)
[2018-08-13 19:24] LABS: Blood Morphology Comment NOT SEEN (NOT SEEN); Platelet Estimate ADEQ
--- NOTE | 2018-08-13 19:24 | RAD REPORT ---
EXAM DESCRIPTION: US - Renal Ultrasound-Complete - 08/13/2018 7:15 pm CLINICAL HISTORY: KRISTIAN Flank pain COMPARISON: Abdomen Exam Complete dated 01/04/2017 FINDINGS: Both kidneys are normal in size, shape and echotexture. The right kidney measures 11.2 x 5.3 x 4.4 cm. No hydronephrosis, focal mass or perinephric fluid. The left kidney measures 11.0 x 5.2 x 4.5 cm. No hydronephrosis, focal mass or perinephric fluid. The urinary bladder is incompletely distended without gross abnormality seen. IMPRESSION: Unremarkable renal sonogram.
[2018-08-13 19:44] LABS: Absolute Lymphocytes (CBC) 1.6 K/uL (0.7-4.9); Absolute Monocytes 0.5 K/uL (0.1-1.3); Absolute Neutrophil 2.6 K/uL (1.8-8.0); Basophils % 3.8 % (0-1.3); Eosinophils % 1.8 % (0-4.4); Hematocrit 28.9 % (36.0-45.0); Lymphocytes % 31.7 % (15.3-44.8); MPV 7.6 fL (7.6-11.3); Monocytes % 9.6 % (3.3-12.3); RBC Red Blood Cell Count 3.65 M/uL (3.86-4.86)
[2018-08-13] MEDS ORDERED: HOME MED 1 EA UNK (Metoprolol Tartrate [Metoprolol Tartrate] 100 MG) PO SCH (21:00)
[2018-08-13 21:16] LABS: Platelet Estimate ADEQ
[2018-08-13] MEDS: Insulin Glargine,Hum.Rec.Anlog [Toujeo Solostar] SQ SCH (21:55)
[2018-08-14] MEDS: HEPARIN 5000 UNIT/ML 1 ML VIAL SQ SCH ×3 (01:07→16:29)
[2018-08-14 01:53] LABS: Urine Protein/Creatinine Ratio 5.13 ratio (<0.15)
[2018-08-14 02:36] LABS: Urine Appearance CLOUDY; Urine Bilirubin NEGATIVE (NEG); Urine Blood 1+ (NEG); Urine Color YELLOW; Urine Glucose NEGATIVE (NEG); Urine Protein 3+ (NEG); Urine Urobilinogen 0.2 mg/dL (0.2-1.0); Urine pH 5.5 (5.0-7.0)
[2018-08-14 02:48] LABS: Urine Microscopic Reflex ORDER UMIC
[2018-08-14 02:52] LABS: Urine Bacteria >50 /HPF (<20); Urine Culture Reflex Order REFLEXED; Urine RBC <5 /HPF (NONE SEEN)
[2018-08-14 05:38] LABS: Protime INR 1.12
[2018-08-14 05:47] LABS: Absolute Lymphocytes (CBC) 1.4 K/uL (0.7-4.9); Absolute Monocytes 0.4 K/uL (0.1-1.3); Absolute Neutrophil 1.4 K/uL (1.8-8.0); Basophils % 3.9 % (0-1.3); Eosinophils % 2.3 % (0-4.4); Hematocrit 25.2 % (36.0-45.0); Lymphocytes % 41.4 % (15.3-44.8); MPV 7.4 fL (7.6-11.3); Monocytes % 10.7 % (3.3-12.3); RBC Red Blood Cell Count 3.23 M/uL (3.86-4.86)
[2018-08-14 06:23] LABS: CKMB Creatine Kinase MB 2.2 ng/mL (0.3-3.6); Ferritin 74.1 ng/mL (8-388); Folic Acid, (Folate) 7.5 ng/mL (3.1-17.5); Magnesium 2.9 mg/dL (1.8-2.4); Phosphorus 5.5 mg/dL (2.5-4.9); Thyroid Stimulating Hormone 1.62 uIU/mL (0.360-3.740); Uric Acid 6.4 mg/dL (2.6-6.0)
[2018-08-14 06:24] LABS: Potassium 5.8 mmol/L (3.5-5.1)
[2018-08-14] MEDS: INSULIN -REGULAR HUMAN 50 UNIT/0.5 ML ML SQ SCH ×4 (07:30→21:00)
[2018-08-14 07:46] LABS: Rheumatoid Factor NEG (NEG)
[2018-08-14] MEDS ORDERED: AMLODIPINE BESYLATE 10 MG PO SCH (09:00)
--- NOTE | 2018-08-14 10:21 | P.PN ---
Subjective Date of Service: 08/14/18 Primary Care Provider: Dr. Tejeda Chief Complaint: KRISTIAN Subjective: No C/O voiced Patient seen and examined at bedside. No family at bedside. Chart reviewed and case discussed with nursing staff. Reports no acute events overnight. Doing well, no concerns or complaints this morning. Report swelling slightly improved Review of Systems 10-point ROS is otherwise unremarkable Physical Examination - Vital Signs Temperature: 97.4 F Blood Pressure: 173/63 Pulse: 83 Respirations: 16 Pulse Ox (%): 95 - Physical Exam General: Alert, In no apparent distress, Oriented x3 HEENT: Atraumatic, PERRLA, EOMI Neck: Supple, JVD not distended Respiratory: Clear to auscultation bilaterally, Normal air movement Cardiovascular: Regular rate/rhythm, Normal S1 S2, Edema (2 to 3+ bilateral lower extremity, up to knees) Gastrointestinal: Normal bowel sounds, No tenderness Musculoskeletal: No tenderness Integumentary: No rashes Neurological: Normal speech, Normal tone, Normal affect Lymphatics: No axilla or inguinal lymphadenopathy - Studies Laboratory Data (last 24 hrs) 08/14/18 09:02: APTT 39.2 H 08/14/18 05:09: PT 13.2 H, INR 1.12, APTT 40.9 H 08/14/18 05:09: Sodium 139, Potassium 5.8 H*, BUN 56 H, Creatinine 3.10 H, Glucose 67 L, Uric Acid 6.4 H, Phosphorus 5.5 H, Magnesium 2.9 H 08/14/18 05:09: WBC 3.3 L D, Hgb 8.7 L, Hct 25.2 L, Plt Count 176 D 08/13/18 19:33: WBC 4.9, Hgb 9.3 L, Hct 28.9 L, Plt Count 242 08/13/18 16:53: Sodium 138, Potassium 5.9 H*, BUN 56 H, Creatinine 3.25 H, Glucose 120 H, Total Bilirubin 0.7, AST 16, ALT 18, Alkaline Phosphatase 111 08/13/18 16:53: WBC 5.3, Hgb 9.5 L, Hct 29.8 L, Plt Count 262 Assessment And Plan - Current Problems (Diagnosis) (1) Acute kidney failure Current Visit: Yes Status: Acute Plan: This could be secondary to Prograf versus kidney disease from diabetes/ hypertension versus rejection Renal workup pending Dr. Rawls consulted, recommendations appreciated. Avoided nephrotoxic medications Qualifiers: Acute renal failure type: unspecified Qualified Code(s): N17.9 - Acute kidney failure, unspecified (2) Anasarca Current Visit: Yes Status: Acute Plan: Likely secondary to renal disease Will continue to monitor. (3) HTN (hypertension) Onset Date: 07/23/17 Current Visit: No Status: Acute Plan: Continue current blood pressure medications. Continue to monitor Qualifiers: Hypertension type: essential hypertension Qualified Code(s): I10 - Essential (primary) hypertension (4) IDDM (insulin dependent diabetes mellitus) Onset Date: 07/23/17 Current Visit: No Status: Acute Plan: Accu-Cheks and mild sliding scale insulin. Resume home insulin medication. Continue to monitor blood glucose levels. Patient will need strict control of her blood sugars (5) History of liver transplant Current Visit: No Status: Chronic Plan: Hold Prograf this time. No evidence of ascites on exam. (6) History of liver cancer Current Visit: No Status: Chronic - Plan DVT prophylaxis: Heparin GI prophylaxis: None Diet: Renal diet, fluid restriction Disposition: Pending symptomatic improvement and renal workup.
--- NOTE | 2018-08-14 15:49 | CON ---
Date of Consultation: 08/14/2018 Consulting Physician: Dr. Guajardo. Reason For Consultation: Elevated BUN/creatinine, hypertension, anasarca. History Of Present Illness: This is a pleasant 63-year-old female with significant past medical hist ory of diabetes complicated with neuropathy, nephropathy, liver cancer status post liver transplant 4 years ago, on Prograf, hypertension. The patient was in her regular state of health until almost 1 week ago when she did a blood test for her followup, found to have elevated BUN/creatinine. For that reason, referred to my office. The patient, according to her she never heard about any kidney disea se before, never been informed about that even though that she follows up with the transplant and doi ng her lab regularly. The patient denied taking any non-steroidal, no IV contrast. The patient foun d to have creatinine 2.8 and GFR of 16. For that reason, was referred. No recent change in her medi cation reviewing her medication. The patient also noticed that she has decrease in her urine output and increase in her leg swelling. Reviewing her medication from home, the patient only was on hydroc hlorothiazide as insulting medication and Prograf, otherwise there is no other insulting medication. The patient was sent to the hospital for direct admission for further workup given the acute kidney i njury and the anasarca. Over the night, the patient's blood pressure had been stable. The patient has significant peripheral edema without any respiratory symptoms. Her workup showed that she has nephrotic-range proteinuria and she has leukorrhea. The patient denied any fever, any chills. Denied any joint problem, any mouth ulcer. Reviewing the record for the patient back in July 2017, had creatinine 1.6 with GFR of 31. The patien t was admitted for TIA at that time. The patient, at that time, back in 2017, still had significant proteinuria, +3. Before that, back in 2017, kidney function was completely normal. The patient denied any fever, any chills. Past Medical History: Includes: 1.Diabetes, complicated with neuropathy. 2.Liver cancer status post transplant. 3.Hypertension. Past Surgical History: Includes liver transplant. Family History: Positive for diabetes. Social History: Ex-smoker. Denied alcohol. Denied drug abuse. Allergies: CODEINE AND LEVAQUIN. Home Medications: Includes amlodipine, insulin, metoprolol, Prograf 5 mg twice a day, atorvastatin. Review of Systems: Head and Neck: No red eye. No ear pain. GI: No nausea. No vomiting. : No polyuria. No dysuria. No hematuria. Afternoon Babysitter: No vaginal discharge. Respiratory: No shortness of breath. Cardiovascular: No chest pain. Has leg swelling. Respiratory: No shortness of breath. Neuro: Has neuropathy. Musculoskeletal: No joint pain. Skin: No rash. Endocrine: No polydipsia. Physical Examination: Vital Signs: When I saw the patient, blood pressure 146/72, pulse of 70, afebrile. The patient had good urine output over the night; had urine output of 600. Chest: Clear to auscultation. Heart: S1, S2. Regular rhythm. Systolic murmur. Abdomen: Soft, nontender. Extremities: +3 edema bilateral. Neurological: Alert and oriented x3. No focal. No tremor. Laboratory Data: Doppler lower extremity, there is no thrombosis. There is a lymph node on the righ t knee fossa. Renal ultrasound, normal size kidney, 11.05/05. No hydronephrosis, incomplete bladder distention with out any abnormality. Echocardiogram was done back in July 2017, normal ejection fraction of 54%. Assessment And Plan: 1.Acute kidney injury, nephrotic range proteinuria, normal sized kidney, possible progression of the disease/acute tubular necrosis secondary to Prograf. a.Given the presence of anemia, light chain disease needs to be ruled out. I am going to go ahead a nd send for SPEP and UPEP. I am going to go ahead and send for serology. The patient will need to h ave a kidney biopsy after we treat her urinary tract infection given the leukorrhea. I agree with e antibiotic for the time being. 2.Anasarca, secondary to renal failure, nephrotic range proteinuria. TSH within normal limits. I a m going to start the patient on Lasix, discontinue amlodipine. We will hold on any IV fluids, and we will start diuresis and we will follow up. 3.Hypertension, controlled optimal. Given the acute kidney injury, hold hydrochlorothiazide, and be cause of the edema hold calcium channel sukhi. We will start the patient on Lasix. Continue beta sukhi. We will follow up. 4.Diabetes, as by primary. 5.Liver transplant. The patient on Prograf. We will follow up Prograf level. We will request the record from the transplant center, Dr. Johnny Tinoco, [facility]. BEBE/AMBROSIO Voice ID: [id number] Report ID: [id number]
[2018-08-14] MEDS: Insulin Glargine,Hum.Rec.Anlog [Toujeo Solostar] SQ SCH (21:46)
[2018-08-15] MEDS: HEPARIN 5000 UNIT/ML 1 ML VIAL SQ SCH ×3 (01:03→16:35)
[2018-08-15 05:50] LABS: Absolute Lymphocytes (CBC) 1.3 K/uL (0.7-4.9); Absolute Monocytes 0.4 K/uL (0.1-1.3); Absolute Neutrophil 1.7 K/uL (1.8-8.0); Basophils % 0.1 % (0-1.3); Eosinophils % 2.6 % (0-4.4); Hematocrit 25.1 % (36.0-45.0); Lymphocytes % 38.1 % (15.3-44.8); MPV 7.4 fL (7.6-11.3); Monocytes % 10.7 % (3.3-12.3); RBC Red Blood Cell Count 3.24 M/uL (3.86-4.86)
[2018-08-15 06:47] LABS: Anisocytosis 1+; Blood Morphology Comment NOTED (NOT SEEN); Platelet Estimate ADEQ; Poikilocytosis 1+; Urine White Blood Cell Casts OK
[2018-08-15] MEDS: INSULIN -REGULAR HUMAN 50 UNIT/0.5 ML ML SQ SCH ×4 (07:30→21:00)
[2018-08-15] MEDS ORDERED: ALBUTEROL 2.5 MG/3 ML NEB SOL NEB ONE (14:33)
[2018-08-15] MEDS ORDERED: CALCIUM GLUC 10% INJ 4.65 MEQ in NA CHLORIDE 0.9% 100 ML IV ONE (14:35)
[2018-08-15] MEDS ORDERED: INSULIN -REGULAR HUMAN 50 UNIT/0.5 ML ML SQ ONE (14:37)
[2018-08-15] MEDS ORDERED: SOD POLYSTYREN SUL 15 GM/60 ML UCUP PO ONE ×2 (14:38→19:02)
[2018-08-15] MEDS ORDERED: D50W 25 GM/50 ML SYRINGE IV ONE (14:38)
[2018-08-15] MEDS: CEFTRIAXONE/SWI 1gm 1 GM/10 ML SYR IV SCH (14:39)
--- NOTE | 2018-08-15 15:14 | P.PN ---
Subjective Date of Service: 08/15/18 Primary Care Provider: Dr. Tejeda Chief Complaint: KRISTIAN Subjective: No new changes Pt with liver transplant and CKD , sent for KRISTIAN and hyperkalmeia not on Willima or ARB, no NASID or contrast on Tacrlimus 5mg bid at home Cr stable still have hyperkalemia will give hyperkalemia treatment mgiht need HD for hyperkalemia and renal biopsy for further evaluation will contact liver center and PCP for old records Physical Examination - Vital Signs Temperature: 96.8 F Blood Pressure: 160/71 Pulse: 63 Respirations: 16 Pulse Ox (%): 95 - Studies Laboratory Data (last 24 hrs) 08/15/18 05:23: APTT 41.4 H 08/15/18 05:23: Sodium 139, Potassium 6.0 H*, BUN 56 H, Creatinine 3.15 H, Glucose 50 L 08/15/18 05:23: WBC 3.5 L, Hgb 8.4 L, Hct 25.1 L, Plt Count 185 08/15/18 01:05: APTT 39.4 H 08/14/18 20:41: APTT 41.6 H 08/14/18 17:01: APTT 40.3 H Assessment And Plan - Current Problems (Diagnosis) (1) Acute kidney failure Current Visit: Yes Status: Acute Qualifiers: Acute renal failure type: unspecified Qualified Code(s): N17.9 - Acute kidney failure, unspecified - Plan A/P KRISTIAN on CKD pt Cr ~3.0 now , Cr 1.6 in 2018 reason for KRISTIAN is unclear , possibly due to Tacro toxicity F/u serology W/u will try to get old records from her PCP Dr Celaya no NSAID or contrast exposure no rash or eosinophilia Us no [place], UPc 5.1, UA with <5 RBC prograf on hold for tonight , level pending will restart tomorrow at 3mg po bid hyperkalemia 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
--- NOTE | 2018-08-15 17:27 | ECHO ---
HEIGHT: 5 ft 6 in WEIGHT: 208 lb 11.2 oz DATE OF STUDY: 08/15/[address]: Lynette Guajardo MD 2-DIMENSIONAL: YES M.MODE: YES DOPPLER: YES COLOR FLOW: YES TDS: PORTABLE: DEFINITY: BUBBLE STUDY: DIAGNOSIS: ELEVATED BNP CARDIAC HISTORY: CATHERIZATION: NO SURGERY: NO PROSTHETIC VALVE: NO PACEMAKER: NO MEASUREMENTS (cm) DIASTOLIC (NORMALS) SYSTOLIC (NORMALS) IVSd 1.4 (0.6-1.2) LA Diam 4.2 (1.9-4.0) LVEF 79% LVIDd 4.4 (3.5-5.7) LVIDs 2.3 (2.0-3.5) %FS 48% LVPWd 1.4 (0.6-1.2) Ao Diam 2.8 (2.0-3.7) 2 DIMENSIONAL ASSESSMENT: RIGHT ATRIUM: NORMAL LEFT ATRIUM: LEFT ATRIUM ENLARGEMENT RIGHT VENTRICLE: NORMAL LEFT VENTRICLE: LEFT VENTRICULAR HYPERTROPHY TRICUSPID VALVE: NORMAL MITRAL VALVE: MITRAL ANNULAR CALCIFICATION PULMONIC VALVE: NORMAL AORTIC VALVE: SCLEROSIS PERICARDIAL EFFUSION: NONE AORTIC ROOT: NORMAL LEFT VENTRICULAR WALL MOTION: NORMAL DOPPLER/COLOR FLOW: NORMAL COMMENTS: LEFT VENTRICULAR HYPERTROPHY. NORMAL LEFT VENTRICULAR EJECTION FRACTION. MITRAL ANNULAR CALCIFICATION. AORTIC SCLEROSIS. LARGE MASS. APPEARS EXTRA CARDIAC WITH POSSIBLE PLEURAL EFFUSION. RECOMMEND CHEST CT OR CARDIAC MRI IF CLINICALLY INDICATED. TECHNOLOGIST: GAYLE FREED
--- NOTE | 2018-08-15 18:08 | RAD REPORT ---
EXAM DESCRIPTION: CT - Thorax Wo Con CLINICAL HISTORY: Chest pain Mass noted on ECHO, further evaluation COMPARISON: No comparisons FINDINGS: Bilateral pulmonary opacities are present likely pulmonary edema. There is bibasilar compr essive atelectasis seen with moderate bilateral pleural effusions, slightly greater on the left. No p neumothorax. Mildly prominent the mediastinal lymph nodes are seen, however not pathologic in appearance. No concerning bony finding. No gross upper abdominal finding. All CT scans are performed using dose optimization technique as appropriate and may include automated exposure control or mA/KV adjustment according to patient size. IMPRESSION: Moderate pulmonary edema with bilateral pleural effusions suspected.CHF versus volume ov erload is the primary consideration.
--- NOTE | 2018-08-15 18:28 | P.PN ---
Subjective Date of Service: 08/15/18 Primary Care Provider: Dr. Tejeda Chief Complaint: KRISTIAN Subjective: No new changes Patient seen and examined at bedside. No family at bedside. Chart reviewed and case discussed with nursing staff. Reports no acute events overnight. Doing well, no concerns or complaints this morning. Report swelling slightly improved Review of Systems 10-point ROS is otherwise unremarkable Physical Examination - Vital Signs Temperature: 97.7 F Blood Pressure: 143/71 Pulse: 78 Respirations: 18 Pulse Ox (%): 93 - Physical Exam General: Alert, In no apparent distress, Oriented x3 HEENT: Atraumatic, PERRLA, EOMI Neck: Supple, JVD not distended Respiratory: Clear to auscultation bilaterally, Normal air movement Cardiovascular: Regular rate/rhythm, Normal S1 S2, Edema (3+bilateral lower extremity) Gastrointestinal: Normal bowel sounds, No tenderness Musculoskeletal: No tenderness Integumentary: No rashes Lymphatics: No axilla or inguinal lymphadenopathy - Studies Laboratory Data (last 24 hrs) 08/15/18 05:23: APTT 41.4 H 08/15/18 05:23: Sodium 139, Potassium 6.0 H*, BUN 56 H, Creatinine 3.15 H, Glucose 50 L 08/15/18 05:23: WBC 3.5 L, Hgb 8.4 L, Hct 25.1 L, Plt Count 185 08/15/18 01:05: APTT 39.4 H 08/14/18 20:41: APTT 41.6 H Assessment And Plan - Current Problems (Diagnosis) (1) Acute kidney failure Current Visit: Yes Status: Acute Plan: This could be secondary to Prograf versus kidney disease from diabetes/ hypertension versus rejection Renal workup pending Nephrology consulted, recommendations appreciated. Avoided nephrotoxic medications. Patient may benefit from being transferred to [facility], where her liver transplant team is as patient may need to be on alternative medication to Prograf due to possible renal toxicity. We cannot discontinue Prograf as risk of rejection. Prograf levels are still pending. Qualifiers: Acute renal failure type: unspecified Qualified Code(s): N17.9 - Acute kidney failure, unspecified (2) Anasarca Current Visit: Yes Status: Acute Plan: Likely secondary to renal disease Will continue to monitor. (3) HTN (hypertension) Onset Date: 07/23/17 Current Visit: No Status: Acute Plan: Continue current blood pressure medications. Continue to monitor Qualifiers: Hypertension type: essential hypertension Qualified Code(s): I10 - Essential (primary) hypertension (4) IDDM (insulin dependent diabetes mellitus) Onset Date: 07/23/17 Current Visit: No Status: Acute Plan: Accu-Cheks and mild sliding scale insulin. Resume home insulin medication. Continue to monitor blood glucose levels. Patient will need strict control of her blood sugars (5) History of liver transplant Current Visit: No Status: Chronic Plan: Hold Prograf this time. No evidence of ascites on exam. (6) History of liver cancer Current Visit: No Status: Chronic (7) Mass Current Visit: Yes Status: Acute Plan: A large mass noted on echo, seems to be extracardiac. CT chest done without contrast as patient with a KI. CT chest without any major acute abnormalities. Cardiac/chest MRI ordered, pending. - Plan DVT prophylaxis: Heparin GI prophylaxis: None Diet: Renal diet, fluid restriction Disposition: Pending symptomatic improvement and renal workup. Patient may need to be transferred pending cardiac MRI as we do not have cardiothoracic specialty here.
--- NOTE | 2018-08-15 19:00 | RAD REPORT ---
EXAM DESCRIPTION: MRI - Chest Wo Cont - 08/15/2018 6:53 pm CLINICAL HISTORY: Cardiac vs Chest mass Chest pain COMPARISON: Thorax Wo Con dated 08/15/2018 FINDINGS: Examination is limited by lack contrast material. The heart appears mildly enlarged. Left basilar lung infiltrate is suspected likely representing atel ectasis or pneumonia. Moderate bilateral pleural effusions are present, greater on the left. Structurally, the heart appears unremarkable. No pericardial effusion. An aggressive intrathoracic ma ss is not clearly seen on this limited study. IMPRESSION: Bilateral pleural effusions with left basilar atelectasis or infiltrate. No structural cardiac abnormality is detected.
[2018-08-15 22:23] LABS: Hematocrit 25.6 % (36.0-45.0); MPV 7.8 fL (7.6-11.3); RBC Red Blood Cell Count 3.29 M/uL (3.86-4.86)
[2018-08-15 22:48] LABS: Blood Morphology Comment NOT SEEN (NOT SEEN); Platelet Estimate ADEQ
[2018-08-16] MEDS ORDERED: ALBUTEROL 2.5 MG/3 ML NEB SOL NEB STA (00:13)
[2018-08-16] MEDS ORDERED: CALCIUM GLUC 10% INJ 4.65 MEQ in NA CHLORIDE 0.9% 100 ML IV ONE (00:15)
[2018-08-16] MEDS ORDERED: D50W 25 GM/50 ML SYRINGE IV STA (00:18)
[2018-08-16] MEDS ORDERED: SOD POLYSTYREN SUL 15 GM/60 ML UCUP PO PRN (00:21)
[2018-08-16] MEDS: HEPARIN 5000 UNIT/ML 1 ML VIAL SQ SCH ×3 (00:52→18:03)
[2018-08-16] MEDS ORDERED: CALCIUM GLUCONATE 1 GM IVPB 1 GM/50 ML BAG IV ONE (00:54)
[2018-08-16] MEDS: INSULIN -REGULAR HUMAN 50 UNIT/0.5 ML ML SQ SCH ×5 (01:27→21:00)
[2018-08-16] MEDS ORDERED: D5W 1,000 ML IV ONE (02:54)
[2018-08-16] MEDS: D5W 1,000 ML with NA BICARB 8.4% 150 MEQ IV SCH ×4 (03:08→20:10)
[2018-08-16 05:17] LABS: Hematocrit 23.8 % (36.0-45.0); MPV 7.5 fL (7.6-11.3); RBC Red Blood Cell Count 3.06 M/uL (3.86-4.86)
[2018-08-16 05:26] LABS: Magnesium 2.9 mg/dL (1.8-2.4); Potassium 5.2 mmol/L (3.5-5.1)
[2018-08-16 07:18] LABS: Blood Morphology Comment NOTED (NOT SEEN); Platelet Estimate ADEQ
[2018-08-16 07:19] LABS: Anisocytosis SLIGHT; Ovalocytes SLIGHT; Poikilocytosis 1+; Teardrop Cell FEW
[2018-08-16] MEDS ORDERED: NIFEDIPINE XL 60 MG TABLET PO SCH (09:00)
[2018-08-16] MEDS: CEFTRIAXONE/SWI 1gm 1 GM/10 ML SYR IV SCH (09:33)
--- NOTE | 2018-08-16 13:57 | CON ---
Date of Consultation: 08/15/2018 The patient was admitted on 08/14/[address] Guajardo's service. I saw the patient on 08/15/2018. Reason For Consultation: Abnormal echocardiogram. History Of Present Illness: Ms. Ko is a 63-year-old white woman, has a history of liver transplan t approximately 5 years ago, has been lost to follow up. Continues to take her Prograf, gets blood w ork from time to time. Her Prograf has been recently reduced because of renal dysfunction. Her crea tinine is 3.32. She is also anemic with a hemoglobin of 7.9. She has hyperkalemia, diabetes that is poorly controlled, hypertension and came in with anasarca and renal failure. An echocardiogram that was done yesterday showed a mass that appears to be extracardiac, although it is possible that pseud oaneurysm that is attached to the left ventricle although patient has never had any cardiac history. No history of CHF. No history of coronary artery disease. A CT of the chest was negative. An MRI of the chest was actually negative and we were not able to see the mass. That mass is very obvious o n the echocardiography and measures probably about 3 cm x 3 cm. It is possible that it is a cyst. C ertainly, pericardial cyst is possible. Apparently, patient has a history of sarcoidosis and this ce rtainly may not be related to this. Nevertheless, the patient has no symptoms in that regard. Past Medical History: As stated above. Allergies: SHE IS ALLERGIC TO CODEINE AND LEVAQUIN. Review of Systems: Negative. Social History: Negative. Family History: Negative. Medications: At home, include Prograf, Ultram, Norvasc, Lipitor, insulin, and metoprolol. Physical Examination: Vital Signs: Stable. Afebrile. Sinus rhythm. HEENT: Negative. Neck: Supple with no bruit. Chest: Clear. Cardiac: Exam is normal. No murmurs, gallops, or rubs. Rhythm is normal. Abdomen: Benign. Extremities: Revealed no clubbing, cyanosis. She has edema all the way up to the thigh. Diagnostic Data: Other than what is mentioned above is within normal limit. Impression And Plan: 1. 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 I think patient needs to have a transesophageal echocardio gram as an outpatient or a cardiac MRI. This can be done as an outpatient as well and I can make an arrangement for her to have that done. Attend [facility] after she is ready to be discharged. He r other problems include anasarca, renal failure, being treated by Dr. Rawls. 2.Diabetes, poorly controlled. 3.Hypertension, well controlled. 4.Liver transplant. On lower doses of Prograf for now. ELLIOTT/AMBROSIO Voice ID: [id number] Report ID: [id number]
[2018-08-16] MEDS ORDERED: HYDRALAZINE HCL 20 MG/ML VIAL IV ONE (18:09)
--- NOTE | 2018-08-17 01:54 | PN ---
Date of Progress Note: 08/16/2018 Chief Complaint: Acute kidney injury. History Of Present Illness: The patient was admitted to the hospital because of worsening of the clarisa al function. The patient was found to have acute kidney injury with hyperkalemia. The patient was s tarted on IV fluids and tacrolimus dose was decreased in view of persistent hyperkalemia and acute ki dney injury. The patient has liver transplant. She is noncompliant with followup with her transplan t team. The patient today denies new complaints. She denies PND or orthopnea. Physical Examination: Lungs: Few crackles at bases. Heart: S1, S2. Abdomen: Soft, benign, nontender. Extremities: No edema. Laboratory Data: Sodium is 140, potassium 5.2, chloride 109, CO2 21, BUN 58, creatinine 3.32, calciu m 7.9, magnesium 2.9. Assessment And Plan: 1.Acute kidney injury. The patient has nonoliguric urine output, was found to have hyperkalemia. P otassium level was from 5.8-6, improved today to 5.2. 2.Liver transplant. The patient will need to be transferred to higher level of care and I had discu ssion with the patient regarding treatment for acute kidney injury, which may require dialysis. 3.Hyperkalemia. Potassium level is improving. Continue low-potassium diet. 4.History of liver transplant. Recommend to transfer the patient to higher level of care. Tacrolim us dose was reduced in view of hyperkalemia and acute kidney injury. The patient will need to follow up with transplant team for fu rther adjustment. EB/MODL Voice ID: [id number] Report ID: [id number]
[2018-08-18 03:13] LABS: HBsAG Nonreactive (Nonreactive); Hepatitis A IgM Antibody Nonreactive
--- NOTE | 2018-08-18 18:11 | P.DS ---
Admission Date: 08/13/18 Discharge Date: 08/16/18 Primary Care Provider: Dr. Tejeda Disposition: TRANSFER TO [facility] Discharge Condition: GOOD Reason for Admission: KRISTIAN Consultations: Nephrology - Problems (1) Acute kidney failure Status: Acute Qualifiers: Acute renal failure type: unspecified Qualified Code(s): N17.9 - Acute kidney failure, unspecified (2) Anasarca Status: Acute (3) HTN (hypertension) Onset Date: 07/23/17 Status: Acute Qualifiers: Hypertension type: essential hypertension Qualified Code(s): I10 - Essential (primary) hypertension (4) IDDM (insulin dependent diabetes mellitus) Onset Date: 07/23/17 Status: Acute (5) History of liver transplant Status: Chronic (6) History of liver cancer Status: Chronic (7) Mass Status: Acute Brief History of Present Illness: This is a 63-year-old female with history of diabetes, hypertension, history of liver cancer status post liver transplant 4 years ago, Currently on Prograf admitted directly from 's office for acute kidney injury. Patient had a liver transplant 4 years ago, currently on Prograf. She undergoes blood work every 90 days and 1 week ago she had blood work done and was told to see a kidney specialist. She saw Dr. Rawls in his office today and was sent to the hospital for admission. In 2018, Patient's creatinine was 1.6, GFR 31. 1 week ago, creatinine is 2.9 with a GFR of 16. Patient complains of bilateral lower extremity swelling for the past 2 years that has been worsening progressively. She also complains of feeling tired for the past year that has been progressive. Otherwise, she denies any complaints of chest pain, shortness of breath, headache, vision changes, nausea, vomiting, and GI or complaints. At the time of my exam, patient was alert oriented x3, in no acute distress and hemodynamically stable. Hospital Course: She was admitted for further evaluation of for KRISTIAN and anasarca. Nephrology was consulted. It was thought that this was secondary to Prograf versus kidney disease from diabetes/hypertension versus rejection. Patient's Prograf levels were drawn, were still pending. Other renal workup was started by nephrology. It was thought that patient may benefit from being transferred to [facility] liver transplant he was as patient may need to be on alternative medication to Prograf due to possibility of renal toxicity from med. We were unable to discontinue Prograf shear at the risk of rejection. Patient was then transferred to [facility]. She was found to have a large mass noted on echo, seems to be extracardiac. CT chest done without contrast as patient with KRISTIAN. CT chest without any major acute abnormalities. Cardiac/chest MRI also negative for any acute major abnormalities. Patient may need follow up imaging. Throughout the stay here, patient remained asymptomatic and hemodynamically stable. Vital Signs/Physical Exam: Temp Pulse Resp BP Pulse Ox 98.5 F 71 20 139/69 97 08/16/18 20:00 08/16/18 20:00 08/16/18 20:00 08/16/18 20:00 08/16/18 20:00 General: Alert, In no apparent distress, Oriented x3 HEENT: Atraumatic, PERRLA, EOMI Neck: Supple, JVD not distended Respiratory: Clear to auscultation bilaterally, Normal air movement Cardiovascular: Regular rate/rhythm, Normal S1 S2 Gastrointestinal: Normal bowel sounds, No tenderness Musculoskeletal: No tenderness Integumentary: No rashes Neurological: Normal speech, Normal tone, Normal affect Lymphatics: No axilla or inguinal lymphadenopathy Laboratory Data at Discharge: WBC 3.5 K/uL (4.3-10.9) L 08/16/18 04:16 Hgb 7.9 g/dL (12.0-15.0) L* 08/16/18 04:16 Hct 23.8 % (36.0-45.0) L 08/16/18 04:16 Plt Count 179 K/uL (152-406) 08/16/18 04:16 PT 13.2 SECONDS (9.5-12.5) H 08/14/18 05:09 INR 1.12 08/14/18 05:09 APTT 41.4 SECONDS (24.3-36.9) H 08/15/18 05:23 Sodium 140 mmol/L (136-145) 08/16/18 04:16 Potassium 5.2 mmol/L (3.5-5.1) H 08/16/18 04:16 BUN 58 mg/dL (7-18) H 08/16/18 04:16 Creatinine 3.32 mg/dL (0.55-1.3) H 08/16/18 04:16 Glucose 180 mg/dL (74-106) H 08/16/18 04:16 Uric Acid 6.4 mg/dL (2.6-6.0) H 08/14/18 05:09 Phosphorus 5.5 mg/dL (2.5-4.9) H 08/14/18 05:09 Magnesium 2.9 mg/dL (1.8-2.4) H 08/16/18 04:16 Total Bilirubin 0.7 mg/dL (0.2-1.0) 08/13/18 16:53 AST 16 U/L (15-37) 08/13/18 16:53 ALT 18 U/L (12-78) 08/13/18 16:53 Alkaline Phosphatase 111 U/L (45-117) 08/13/18 16:53 Home Medications: Amlodipine Besylate 10 mg PO DAILY 07/23/17 Insulin Glargine,Hum.rec.anlog [Zach Chinchilla] 35 units SQ BEDTIME 07/23/17 Metoprolol Tartrate 100 mg PO BID 07/23/17 Tacrolimus [Astagraf Xl] 5 mg PO Q12HR 07/23/17 Tramadol HCl [Ultram] 50 mg PO BID 07/23/17 Atorvastatin Calcium [Lipitor] 40 mg PO DAILY 08/13/18 Time spent managing pt's care (in minutes): 55
[2018-08-19 06:59] LABS: P-ANCA Anti-Myeloperoxidase Ab <1.0 AI (<1.0)
[2018-08-19 10:11] LABS: HIV AG/AB 4TH GEN Non-reactive (Non-reactive); P-ANCA Anti-Myeloperoxidase Ab <1.0 AI (<1.0)
[2018-08-19 10:11] LABS: HIV AG/AB 4TH GEN Non-reactive (Non-reactive)
[2018-08-19 12:56] LABS: Vitamin D 1,25-Dihydroxy Total 8 pg/mL (18-72); Vitamin D,1,25-OH2, D2 <8 pg/mL
[2018-08-19 22:02] LABS: Hepatitis C Virus RNA (PCR)log <1.18 log IU/mL
[2018-08-21 11:29] LABS: Albumin, (SPE) 2.7 g/dL (3.8-4.8); Alpha-1-Globulins 0.4 g/dL (0.2-0.3); Alpha-2-Globulins 0.7 g/dL (0.5-0.9); Gamma Globulins 1.6 g/dL (0.8-1.7); INTERPRETATION REPORT
[2018-08-21 11:30] LABS: Hep C Virus RNA (PCR)log <1.18 log IU/mL
== END 2018-08-16 21:37 | disposition short-term general hospital (02) | DRG 683 ==
LOC: 2ND 15:30 → 4TH 08-16 17:05
PROVIDERS: ADMIT Family Medicine; ATTEND Family Medicine
DX: N17.9 Acute kidney failure, unspecified (principal); Z94.4 Liver transplant status; N39.0 Urinary tract infection, site not specified; I12.9 Hypertensive chronic kidney disease with stage 1 through stage 4 chronic kidney disease, or unspecified chronic kidney disease; E11.22 Type 2 diabetes mellitus with diabetic chronic kidney disease; N18.9 Chronic kidney disease, unspecified; E11.40 Type 2 diabetes mellitus with diabetic neuropathy, unspecified; E11.65 Type 2 diabetes mellitus with hyperglycemia; E87.5 Hyperkalemia; Z91.19 Patient's noncompliance with other medical treatment and regimen; D50.9 Iron deficiency anemia, unspecified; R22.2 Localized swelling, mass and lump, trunk; Z79.4 Long term (current) use of insulin; Z85.05 Personal history of malignant neoplasm of liver; Z87.891 Personal history of nicotine dependence; Z86.73 Personal history of transient ischemic attack (TIA), and cerebral infarction without residual deficits; Z88.5 Allergy status to narcotic agent
CPT/HCPCS: 36415; 71250; 71550; 76770; 80048; 80053; 80074; 80197; 81003; 81015; 82553; 82570; 82607; 82652; 82728; 82746; 82962; 83520; 83540; 83735; 83970; 84100; 84132; 84156; 84165; 84300; 84443; 84466; 84550; 85025; 85044; 85049; 85610; 85730; 86021; 86038; 86160; 86225; 86317; 86430; 86704; 86706; 87077; 87086; 87088; 87186; 87389; 87522; 93306; 94640; 94760; 96365; J0360; J0610; J0696; J1644; J1650

== ENCOUNTER 2018-09-03 16:50 | Emergency (ER) | payer OTHER ==
--- OUTSIDE RECORDS SUMMARY | 2018-09-03 16:55 | XMS REPORT | Clinical Summary ---
:1955 Author Organization [facility] Address [address] [place] [address] Care Team Providers Name Role Phone Will [...] [phone] StrpIndications: and at bedtime. Diabetes (HCC) calcium Take 1 tablet by 0 Active [...] mg by 0 Active mg tablet mouth 2 (two) times daily as needed for Pain . atorvastatin (LIPITOR) Take 40 mg by 0 Active 40 MG tablet mouth daily. allopurinol (ZYLOPRIM) Take 1 tablet 30 tablet 0 08/24/2 // Active 100 MG tablet (100 mg total) by 019 2020 mouth daily. amLODIPine (NORVASC) Take 1 tablet (10 30 tablet 0 08/24/2 08/23/ Active 10 MG tablet mg total) by 2019 mouth daily. hydrALAZINE Take 1 tablet (25 60 tablet 0 08/23/2 08/22/ Active (APRESOLINE) 25 MG mg total) by 2019 tablet mouth every 8 (eight) hours. insulin glargine Inject 16 Units 15 mL 0 08/23/ Active (LANTUS SOLOSTAR U-100 subcutaneously 019 INSULIN) 100 unit/mL every morning. (3 mL) InPn tacrolimus (PROGRAF) 5 Take 1 capsule (5 0 08/24/2 08/23/ Active MG capsule mg total) by 2019 mouth Daily (0600). tacrolimus (PROGRAF) 1 Take 4 capsules 0 08/23/08/22/ Active MG capsule (4 mg total) by 2019 mouth Daily (1800). amLODIPine (NORVASC) 5 Take 5 mg by 0 10/20/08/23/ Discontinued MG tablet mouth daily . 2018 INSULIN Inject 35 Units 0 08/23/ Discontinued GLARGINE,HUM.REC.ANLOG subcutaneously 2019 (TOUJEO SOLOSTAR SUBQ) once at bedtime . hydroCHLOROthiazide Take 12.5 mg by 0 08/23/ Discontinued (MICROZIDE) 12.5 mg mouth daily. 2019 capsule tacrolimus (PROGRAF) 1 Take 5 capsules 900 capsule 1 2 02/12/ Discontinued MG capsuleIndications: (5 mg total) by 2017 HCC (hepatocellular mouth 2 (two) carcinoma) (HCC), times daily. Liver replaced by transplant (HCC) tacrolimus (PROGRAF) 1 Take 5 capsules 140 capsule 0 2 07/02/ Discontinued MG capsuleIndications: (5 mg total) by 2018 HCC (hepatocellular mouth 2 (two) carcinoma) (HCC), times daily. Liver replaced by transplant (HCC) tacrolimus (PROGRAF) 1 Take 5 capsules 300 capsule 5 07/02/2 08/23/ Discontinued MG capsuleIndications: (5 mg total) by 2018 HCC (hepatocellular mouth 2 (two) carcinoma) (HCC), times daily. Liver replaced by transplant (HCC) amLODIPine (NORVASC) Take 1 tablet (10 30 tablet 0 08/24/2 08/23/ Discontinued 10 MG tablet mg total) by 2018 mouth daily. insulin glargine Inject 16 Units 15 mL 0 08/23/2 08/23/ Discontinued (LANTUS SOLOSTAR U-100 subcutaneously 2018 INSULIN) 100 unit/mL every morning. (3 mL) InPn tacrolimus (PROGRAF) 5 Take 1 capsule (5 0 08/24/2 08/23/ Discontinued MG capsule mg total) by 2018 mouth Daily (0600). tacrolimus (PROGRAF) 1 Take 4 capsules 0 08/23/2 08/23/ Discontinued MG capsule (4 mg total) by 2018 mouth Daily (1800). allopurinol (ZYLOPRIM) Take 1 tablet 30 tablet 0 08/24/2 08/23/ Discontinued 100 MG tablet (100 mg total) by 2018 mouth daily. hydrALAZINE Take 1 tablet (25 60 tablet 0 08/23/08/23/ Discontinued (APRESOLINE) 25 MG mg total) by 2018 tablet mouth every 8 (eight) hours. polyethylene glycol Take 17 g by 14 each 0 08/23/2 08/23/ Discontinued (GLYCOLAX) 17 gram mouth 2 (two) 2018 packet times daily for 3 days. polyethylene glycol Take 17 g by 14 each 0 08/23/2 08/26/ (GLYCOLAX) 17 gram mouth 2 (two) 2018 packet times daily for 3 days. Active Problems Problem Noted Date KRISTIAN (acute kidney injury) 08/17/2018 Chest pain 08/08/2016 Immunosuppression 10/18/2014 Last Assessment [...] Encounters Date Type Specialty Care Team Description 08/22/2018 Telephone Transplant Shiela Weems Hepatology M, RN 08/22/2018 Telephone Transplant Shiela Weems bundle clerk Hepatology M, RN 08/19/2018 Telephone Transplant Shiela Weems bundle clerk Hepatology M, RN 08/17/2018 Travel 08/16/2018 - Hospital Transplant Tristin, KRISTIAN (acute kidney injury) (HCC); 08/23/2018 Encounter Pramod Stern Type 2 diabetes mellitus with diabetic polyneuropathy, with long-term current use of insulin (HCC); MD BRAULIO Microcytic anemia; Shelby, Bilateral pleural effusion; MD Kamryn Stage 3 chronic kidney disease (HCC); Immunosuppression (HCC); Liver replaced by transplant (HCC); HCC (hepatocellular carcinoma) (HCC) 08/15/2018 Telephone Transplant Shiela Weems bundle clerk Hepatology M, RN 07/02/2018 Telephone Transplant Shiela Weems Medication Refill Hepatology M, RN 02/12/2018 Orders Only Transplant Shiela Weems HCC (hepatocellular carcinoma) (HCC); Hepatology M, RN Liver replaced by transplant (HCC) after 09/02/2017 Immunizations Name Dates Previously Given Next Due [...] travel history available. Last Filed Vital Signs Vital Sign Reading Time Taken Blood Pressure 155/70 08/23/2018 12:00 PM CDT Pulse 67 08/23/2018 12:00 PM CDT Temperature 36.3 C (97.3 F) 08/23/2018 12:00 PM CDT Respiratory Rate 18 08/23/2018 12:00 PM CDT Oxygen Saturation 93% 08/23/2018 12:00 PM CDT Inhaled Oxygen Concentration - - Weight 95.3 kg (210 lb 1.6 oz) 08/22/2018 7:39 AM CDT Height 167.6 cm (5' 6") 08/17/2018 1:00 AM CDT Body Mass Index 33.91 08/22/2018 7:39 AM CDT Plan of Treatment Not on file Implants Implanted Type Area Odd Bundle Worker Device Shelf Model / Identifier Expiration Serial / Date Lot Angio-Seal Vip Right: [employer] 10/22/2014 [id number] / Implanted: Qty: 1 on 02/16/2014 by Darío Shearer MD [employer] / [id number] Procedures Procedure Name Priority Date/Time Associated Comments Diagnosis RHYTHM STRIP - SCAN 08/25/2018 12:20 PM CDT POCT-GLUCOSE METER Routine 08/23/2018 12:08 Results for this PM CDT procedure are in the results section. POTASSIUM Routine 08/23/2018 11:46 Results for this AM CDT procedure are in the results section. POCT-GLUCOSE METER Routine 08/23/2018 7:21 Results for this AM CDT procedure are in the results section. TACROLIMUS LEVEL Routine 08/23/2018 6:32 Results for this AM CDT procedure are in the results section. CBC (HEMOGRAM ONLY) Routine 08/23/2018 6:32 Results for this AM CDT procedure are in the results section. COMPREHENSIVE METABOLIC Routine 08/23/2018 6:32 Results for this PANEL AM CDT procedure are in the results section. CREATININE CLEARANCE Routine 08/22/2018 11:55 Results for this PM CDT procedure are in the results section. PROTEIN, 24 HOUR URINE Routine 08/22/2018 11:55 Results for this PM CDT procedure are in the results section. POCT-GLUCOSE METER Routine 08/22/2018 9:07 Results for this PM CDT procedure are in the results section. POCT-GLUCOSE METER Routine 08/22/2018 4:40 Results for this PM CDT procedure are in the results section. POCT-GLUCOSE METER Routine 08/22/2018 12:25 Results for this PM CDT procedure are in the results section. POCT-GLUCOSE METER Routine 08/22/2018 7:42 Results for this AM CDT procedure are in the results section. TACROLIMUS LEVEL Routine 08/22/2018 5:09 Results for this AM CDT procedure are in the results section. CBC (HEMOGRAM ONLY) Routine 08/22/2018 5:09 Results for this AM CDT procedure are in the results section. COMPREHENSIVE METABOLIC Routine 08/22/2018 5:09 Results for this PANEL AM CDT procedure are in the results section. URINE PROTEIN Routine 08/22/2018 12:05 Results for this ELECTROPHORESIS, RANDOM AM CDT procedure are in the results section. URINE IMMUNOFIXATION, AP Routine 08/22/2018 12:05 Results for this RANDOM AM CDT procedure are in the results section. CREATININE Routine 08/21/2018 9:42 Results for this PM CDT procedure are in the results section. IMMUNOFIXATION AP Routine 08/21/2018 9:42 Results for this ELECTROPHORESIS (TOMA) PM CDT procedure are in the results section. CREATININE CLEARANCE Routine 08/21/2018 9:42 Results for this PM CDT procedure are in the results section. HEPATITIS B CORE Routine 08/21/2018 9:42 Results for this ANTIBODY, TOTAL PM CDT procedure are in the results section. HEPATITIS PANEL, ACUTE Routine 08/21/2018 9:42 Results for this PM CDT procedure are in the results section. HIV-1 ANTIGEN WITH Routine 08/21/2018 9:42 Results for this HIV-1/2 ANTIBODY PM CDT procedure are in the results section. COMPLEMENT COMPONENT C3 Routine 08/21/2018 9:42 Results for this PM CDT procedure are in the results section. COMPLEMENT COMPONENT C4 Routine 08/21/2018 9:42 Results for this PM CDT procedure are in the results section. PROTEIN AP Routine 08/21/2018 9:41 Results for this ELECTROPHORESIS, SERUM PM CDT procedure are in the results section. ANTI-NEUTROPHIL Routine 08/21/2018 9:41 Results for this CYTOPLASMIC AB (ANCA) PM CDT procedure are in the results section. RHEUMATOID FACTOR AB, Routine 08/21/2018 9:41 Results for this REFLEX TO TITER PM CDT procedure are in the results section. ANTI-NUCLEAR ANTIBODY Routine 08/21/2018 9:41 Results for this (WOODY) PM CDT procedure are in the results section. RPR Routine 08/21/2018 9:41 Results for this PM CDT procedure are in the results section. POCT-GLUCOSE METER Routine 08/21/2018 9:32 Results for this PM CDT procedure are in the results section. OSMOLALITY, SERUM AP Routine 08/21/2018 6:59 Results for this PM CDT procedure are in the results section. PTH, INTACT Routine 08/21/2018 6:59 Results for this PM CDT procedure are in the results section. URIC ACID Routine 08/21/2018 6:59 Results for this PM CDT procedure are in the results section. SODIUM, RANDOM URINE Routine 08/21/2018 6:45 Results for this PM CDT procedure are in the results section. POTASSIUM, RANDOM URINE Routine 08/21/2018 6:45 Results for this PM CDT procedure are in the results section. CHLORIDE, RANDOM URINE Routine 08/21/2018 6:45 Results for this PM CDT procedure are in the results section. PROTEIN, RANDOM URINE Routine 08/21/2018 6:45 Results for this PM CDT procedure are in the results section. CREATININE, RANDOM Routine 08/21/2018 6:45 Results for this URINE PM CDT procedure are in the results section. OSMOLALITY, URINE AP Routine 08/21/2018 6:45 Results for this PM CDT procedure are in the results section. EOSINOPHIL SMEAR, URINE Routine 08/21/2018 6:45 Results for this PM CDT procedure are in the results section. POCT-GLUCOSE METER Routine 08/21/2018 4:30 Results for this PM CDT procedure are in the results section. XR CHEST 1 VIEW STAT 08/21/2018 4:01 Results for this PORTABLE/BEDSIDE PM CDT procedure are in the results section. CYTOLOGY AP Routine 08/21/2018 3:57 Results for this PM CDT procedure are in the results section. BODY FLUID CELL COUNT Routine 08/21/2018 3:56 Results for this WITH DIFFERENTIAL PM CDT procedure are in the results section. PROTEIN, BODY FLUID Routine 08/21/2018 3:45 Results for this PM CDT procedure are in the results section. LACTATE DEHYDROGENASE Routine 08/21/2018 3:45 Results for this (LDH), BODY FLUID PM CDT procedure are in the results section. POCT-GLUCOSE METER Routine 08/21/2018 12:00 Results for this PM CDT procedure are in the results section. POCT-GLUCOSE METER Routine 08/21/2018 9:31 Results for this AM CDT procedure are in the results section. POCT-GLUCOSE METER Routine 08/21/2018 8:40 Results for this AM CDT procedure are in the results section. POCT-GLUCOSE METER Routine 08/21/2018 7:17 Results for this AM CDT procedure are in the results section. TACROLIMUS LEVEL Routine 08/21/2018 5:27 Results for this AM CDT procedure are in the results section. COMPREHENSIVE METABOLIC Routine 08/21/2018 5:26 Results for this PANEL AM CDT procedure are in the results section. MAGNESIUM Routine 08/21/2018 5:26 Results for this AM CDT procedure are in the results section. CBC (HEMOGRAM ONLY) Routine 08/21/2018 5:26 Results for this AM CDT procedure are in the results section. POCT-GLUCOSE METER Routine 08/20/2018 9:30 Results for this PM CDT procedure are in the results section. XR CHEST 1 VIEW STAT 08/20/2018 6:23 Results for this PORTABLE/BEDSIDE PM CDT procedure are in the results section. BODY FLUID CULTURE + Routine 08/20/2018 5:55 Results for this GRAM STAIN PM CDT procedure are in the results section. BODY FLUID CELL COUNT Routine 08/20/2018 5:54 Results for this WITH DIFFERENTIAL PM CDT procedure are in the results section. TRIGLYCERIDES, BODY Routine 08/20/2018 5:53 Results for this FLUID PM CDT procedure are in the results section. PROTEIN, BODY FLUID Routine 08/20/2018 5:53 Results for this PM CDT procedure are in the results section. PH, BODY FLUID Routine 08/20/2018 5:53 Results for this PM CDT procedure are in the results section. LACTATE DEHYDROGENASE Routine 08/20/2018 5:53 Results for this (LDH), BODY FLUID PM CDT procedure are in the results section. ALBUMIN, BODY FLUID Routine 08/20/2018 5:53 Results for this PM CDT procedure are in the results section. US THORACENTESIS Routine 08/20/2018 5:45 Results for this PM CDT procedure are in the results section. POCT-GLUCOSE METER Routine 08/20/2018 11:15 Results for this AM CDT procedure are in the results section. PT/APTT Routine 08/20/2018 9:59 Results for this AM CDT procedure are in the results section. POCT-GLUCOSE METER Routine 08/20/2018 7:47 Results for this AM CDT procedure are in the results section. CBC W/PLT COUNT & AUTO Routine 08/20/2018 5:46 Results for this DIFFERENTIAL AM CDT procedure are in the results section. MAGNESIUM Routine 08/20/2018 5:46 Results for this AM CDT procedure are in the results section. CBC W/PLT COUNT & AUTO Routine 08/20/2018 5:46 Results for this DIFFERENTIAL AM CDT procedure are in the results section. BASIC METABOLIC PANEL Routine 08/20/2018 5:46 Results for this (7) AM CDT procedure are in the results section. TACROLIMUS LEVEL Routine 08/20/2018 5:46 Results for this AM CDT procedure are in the results section. POCT-GLUCOSE METER Routine 08/19/2018 10:13 Results for this PM CDT procedure are in the results section. POCT-GLUCOSE METER Routine 08/19/2018 4:22 Results for this PM CDT procedure are in the results section. POCT-GLUCOSE METER Routine 08/19/2018 12:58 Results for this PM CDT procedure are in the results section. POCT-GLUCOSE METER Routine 08/19/2018 8:55 Results for this AM CDT procedure are in the results section. POCT-GLUCOSE METER Routine 08/19/2018 7:43 Results for this AM CDT procedure are in the results section. TACROLIMUS LEVEL Routine 08/19/2018 5:59 Results for this AM CDT procedure are in the results section. CBC (HEMOGRAM ONLY) Routine 08/19/2018 5:59 Results for this AM CDT procedure are in the results section. COMPREHENSIVE METABOLIC Routine 08/19/2018 5:58 Results for this PANEL AM CDT procedure are in the results section. US ABDOMEN LIMITED Routine 08/18/2018 11:25 Results for this PM CDT procedure are in the results section. POCT-GLUCOSE METER Routine 08/18/2018 10:29 Results for this PM CDT procedure are in the results section. ECHOCARDIOGRAM REPORT - 08/18/2018 9:20 SCAN PM CDT POCT-GLUCOSE METER Routine 08/18/2018 5:30 Results for this PM CDT procedure are in the results section. XR CHEST 2 VIEWS Routine 08/18/2018 1:32 Results for this PM CDT procedure are in the results section. POCT-GLUCOSE METER Routine 08/18/2018 12:04 Results for this PM CDT procedure are in the results section. POCT-GLUCOSE METER Routine 08/18/2018 7:43 Results for this AM CDT procedure are in the results section. TACROLIMUS LEVEL Routine 08/18/2018 5:24 Results for this AM CDT procedure are in the results section. HEMOGLOBIN A1C Routine 08/18/2018 5:24 Results for this AM CDT procedure are in the results section. CBC (HEMOGRAM ONLY) Routine 08/18/2018 5:24 Results for this AM CDT procedure are in the results section. COMPREHENSIVE METABOLIC Routine 08/18/2018 5:24 Results for this PANEL AM CDT procedure are in the results section. POCT-GLUCOSE METER Routine 08/17/2018 5:31 Results for this PM CDT procedure are in the results section. 2D ECHO W/ DOPPLER STAT 08/17/2018 5:05 Results for this (CW/PW/COLOR) PM CDT procedure are in the results section. POCT-GLUCOSE METER Routine 08/17/2018 4:21 Results for this PM CDT procedure are in the results section. CT CHEST WITHOUT IV Routine 08/17/2018 3:45 Results for this CONTRAST PM CDT procedure are in the results section. URINALYSIS MICROSCOPIC Routine 08/17/2018 2:03 Results for this PM CDT procedure are in the results section. URINALYSIS WITH Routine 08/17/2018 2:03 Results for this MICROSCOPIC IF PM CDT procedure are in INDICATED the results section. B-TYPE NATRIURETIC Routine 08/17/2018 2:02 Results for this FACTOR (BNP) PM CDT procedure are in the results section. POCT-GLUCOSE METER Routine 08/17/2018 12:26 Results for this PM CDT procedure are in the results section. POCT-GLUCOSE METER Routine 08/17/2018 8:50 Results for this AM CDT procedure are in the results section. POCT-GLUCOSE METER Routine 08/17/2018 7:15 Results for this AM CDT procedure are in the results section. CBC W/PLT COUNT & AUTO Routine 08/17/2018 5:34 Results for this DIFFERENTIAL AM CDT procedure are in the results section. CBC W/PLT COUNT & AUTO Routine 08/17/2018 5:34 Results for this DIFFERENTIAL AM CDT procedure are in the results section. COMPREHENSIVE METABOLIC Routine 08/17/2018 5:34 Results for this PANEL AM CDT procedure are in the results section. TACROLIMUS LEVEL Routine 08/17/2018 5:34 Results for this AM CDT procedure are in the results section. B-TYPE NATRIURETIC Routine 08/17/2018 5:34 Results for this FACTOR (BNP) AM CDT procedure are in the results section. POCT-GLUCOSE METER Routine 08/17/2018 12:49 Results for this AM CDT procedure are in the results section. after 09/02/2017 Results RHYTHM STRIP - SCAN (08/25/2018 12:20 PM CDT) Narrative Performed At POC-Glucose meter (08/23/2018 12:08 PM CDT)Only the most recent of30 resultswithin the time period is included. POC-Glucose Meter 210 (H)Comment: TESTED AT 70 - 110 mg/dL [address] [address] Specimen Blood Performing Organization Address [facility]/Zipcode Phone Number [address] [address] CENTER Potassium (08/23/2018 11:46 AM CDT) Potassium 5.2 (H) 3.5 - 5.1 meq/L [facility] Specimen Blood Performing Organization Address City/[facility]/Zipcode Phone Number [address] [phone] CENTER Tacrolimus level (08/23/2018 6:32 AM CDT)Only the most recent of7 resultswithin the time period is included. Tacrolimus Lvl 6.4 (L) 10.0 - 20.0 ng/mL [facility] Specimen Blood Narrative Performed At Please draw 30 min prior to AM dose. Thanks! [facility] Performing Organization Address City/[facility] Phone Number [facility] [address] [place] [address] [place] CBC (Hemogram only) (08/23/2018 6:32 AM CDT)Only the most recent of5 resultswithin the time period is included. WBC 4.0 3.5 - 10.5 K/L [facility] RBC 3.16 (L) 3.93 - 5.22 M/L [facility] Hemoglobin 7.9 (L) 11.2 - 15.7 GM/DL [facility] Hematocrit 25.6 (L) 34.1 - 44.9 % [facility] MCV 81.0 79.4 - 94.8 fL [facility] MCH 25.0 (L) 25.6 - 32.2 pg [facility] MCHC 30.9 (L) 32.2 - 35.5 GM/DL [facility] RDW 14.2 11.7 - 14.4 % [facility] Platelets 166 150 - 450 K/CU MM [facility] MPV 9.7 9.4 - 12.3 fL [facility] nRBC 0 0 - 0 /100 WBC [facility] Specimen Blood Performing Organization Address City/[facility]/Zipcode Phone Number [facility] [address] [place] [address] [place] Comprehensive metabolic panel (08/23/2018 6:32 AM CDT)Only the most recent of6 resultswithin the time period is included. Protein, Total 6.6 6.0 - 8.3 gm/dL [facility] Albumin 3.0 (L) 3.5 - 5.0 g/dL [facility] Alkaline Phosphatase 88 40 - 150 U/L [facility] Total Bilirubin 0.8 0.2 - 1.2 mg/dL [facility] Sodium 136 136 - 145 meq/L [facility] Potassium 5.5 (H) 3.5 - 5.1 meq/L [facility] Chloride 108 (H) 98 - 107 meq/L [facility] CO2 24 22 - 29 meq/L [facility] BUN 51 (H) 7 - 21 mg/dL [facility] Creatinine 3.23 (H) 0.57 - 1.25 mg/dL [facility] Glucose 129 (H) 70 - 105 mg/dL [facility] Calcium 8.3 (L) 8.4 - 10.2 mg/dL [facility] AST 23 5 - 34 U/L [facility] ALT 24 6 - 55 U/L [facility] EGFR 14Comment: ESTIMATED GFR mL/min/1.73 sq m [facility] IS NOT ACCURATE [facility] CREATININE CLEARANCE IN PREDICTING GLOMERULAR FILTRATION RATE. ESTIMATED GFR IS NOT APPLICABLE FOR DIALYSIS PATIENTS. Specimen Blood Performing Organization Address City/[facility]/Zipcode Phone Number [address] [address] [phone] CENTER Creatinine clearance (08/22/2018 11:55 PM CDT) Creatinine Clearance 10.9 (L) 70.0 - 140.0 mL/min [facility] Volume, Urine 800 ml [facility] Creatinine, Ur 76.9 mg/dL [facility] Patient Height 167.0 cm [facility] Patient Weight 95.300 kg [facility] Specimen Urine Performing Organization Address City/State/Zipcode Phone Number [address] [phone] [place] Protein, 24 hour urine (08/22/2018 11:55 PM CDT) Protein, 24hr Urine 2,000 (H) 0 - 300 mg/24hr [facility] Volume, Urine 800 ml [facility] Protein, Urine 250 (H) 0 - 14 mg/dL [facility] Specimen Urine Performing Organization Address City/[facility] Phone Number [address] [address] [place] Urine Protein Electrophoresis, random (08/22/2018 12:05 AM CDT) Protein, Urine 240 (H) 0 - 14 mg/dL [facility] Albumin %, Urine 59.2 % [facility] Globulin %, Urine 40.8 % [facility] UPEP,ID Urine protein study consistent [facility] with glomerular dysfunction. [facility] There is a possible band present within the gamma region. Refer to serum immunofixation electrophoresis. Pathologist: Karie Butcher MD (electronic [facility] signature) [facility] Specimen Urine Performing Organization Address City/[facility] Phone Number [address] [address] [phone] [place] Urine Immunofixation, random (08/22/2018 12:05 AM CDT) Protein, Urine 240 (H) 0 - 14 mg/dL [facility] Albumin %, Urine 59.2 % [facility] Globulin %, Urine 40.8 % [facility] URINE TOMA ID Urine immunofixation [facility] electrophoresis reveals no [facility] monoclonal proteins or free light chains. Pathologist: Ian Morin M.D. (electonic [facility] signature) [facility] Specimen Urine Performing Organization Address City/[facility] Phone Number [address] [address] [phone] [place] HIV-1 Antigen with HIV-1/2 Antibody (08/21/2018 9:42 PM CDT) HIV-1 Antigen with HIV 1&[address] [facility] Specimen Blood Performing Organization Address [facility] [place] Phone Number [address] [address] [phone] [place] Hepatitis panel, acute (08/21/2018 9:42 PM CDT) Hep A IgM HEPATITIS A TEST NEGATIVE Nonreactive [facility] Hep B C IgM NON-REACTIVE Nonreactive [facility] Hepatitis C Ab Reactive (A) Nonreactive [facility] hepatitis B Surface Ag NON-REACTIVE Nonreactive [facility] Specimen Blood Performing Organization Address [facility] Phone Number [address] [address] [place] Hepatitis B core antibody, total (08/21/2018 9:42 PM CDT) Hep B Core Total Ab NON-REACTIVE Nonreactive [facility] Specimen Blood Performing Organization Address [facility] Phone Number [address] [address] [phone] [place] Immunofixation electrophoresis (TOMA) (08/21/2018 9:42 PM CDT) IgG 1,790 540-1,822 mg/dL [facility] IgA 282 63 - 484 mg/dL [facility] IgM 52 22 - 293 mg/dL [facility] [facility] TOMA Identification No monoclonal proteins [facility] detected. Polyclonal [facility] distribution of immunoglobulins. Pathologist: Ian Morin M.D. [facility] (electonic signature) [facility] Specimen Blood Performing Organization Address City/[facility]/Zipcode Phone Number [address] [address] CENTER Complement Component C3 (08/21/2018 9:42 PM CDT) C3 Complement 81 (L) 82 - 193 mg/dL [facility] Specimen Blood Performing Organization Address City/[facility]/Zipcode Phone Number [address] [address] [phone] [place] Complement Component C4 (08/21/2018 9:42 PM CDT) C4 Complement 21 15 - 57 mg/dL [facility] Specimen Blood Performing Organization Address [facility] Phone Number [address] [address] [place] Creatinine (08/21/2018 9:42 PM CDT) Creatinine 3.45 (H) 0.57 - 1.25 mg/dL [facility] EGFR 13Comment: ESTIMATED GFR IS mL/min/1.73 sq m [facility] NOT ACCURATE CREATININE [facility] CLEARANCE IN PREDICTING GLOMERULAR FILTRATION RATE. ESTIMATED GFR IS NOT APPLICABLE FOR DIALYSIS PATIENTS. Specimen Blood Performing Organization Address [facility] Phone Number [address] [address] [place] Rheumatoid factor Ab, reflex to titer (08/21/2018 9:41 PM CDT) Rheumatoid Factor Negative [facility] Specimen Blood Performing Organization Address City/[facility]/Zipcode Phone Number [address] [address] CENTER RPR (08/21/2018 9:41 PM CDT) RPR Nonreactive Nonreactive [facility] Specimen Blood Performing Organization Address City/[facility]/Zipcode Phone Number [address] [address] [place] Anti-Neutrophil Cytoplasmic Ab (ANCA) (08/21/2018 9:41 PM CDT) Proteinase-3 Ab <1.0 <1.0 [facility] Comment: INCORPORATED <1.0 AI No Antibody Detected > or=1.0 AI Antibody Detected Autoantibodies to proteinase-3 (IA-3) are accepted as characteristic for granulomatosis with polyangiitis (GPA, Praful's), and are detectable in 95% of the histologically proven cases. The cytoplasmic IFA pattern, (c-ANCA), is based largely on autoantibody to IA-3 which serves as the primary antigen. These autoantibodies are present in active disease. Myeloperoxidase Ab <1.0 <1.0 AI [facility] Comment: INCORPORATED <1.0 AI No Antibody Detected > or=1.0 AI Antibody Detected Autoantibodies to myeloperoxidase (MPO) are commonly associated with the following small-vessel vasculitides: microscopic polyangiitis, polyarteritis nodosa, Churg-Cheko syndrome, necrotizing and crescentic glomerulonephritis and occasionally granulomatosis with polyangiitis (GPA, Praful's). The perinuclear IFA pattern, (p-ANCA) is based largely on autoantibody to myeloperoxidase which serves as the primary antigen. These autoantibodies are present in active disease. Specimen Blood Narrative Performed At Performing Lab [facility] [address] [place] [address] Eduin Ariza MD, PhD, JENNY Performing Organization Address [facility] Phone Number [place] [address] [place] [address] Anti-Nuclear Antibody (WOODY) (08/21/2018 9:41 PM CDT) WOODY Negative Negative [facility] Specimen Blood Narrative Performed At Test performed by IFA method. [facility] Test performed by IFA method. Performing Organization Address City/[facility]/Zipcode Phone Number [facility] [address] [place] [address] CENTER Protein electrophoresis, serum (08/21/2018 9:41 PM CDT) Albumin Fraction 2.8 (L) 3.5 - 5.5 g/dL [facility] Alpha 1 Fraction 0.2 0.2 - 0.4 g/dL [facility] Alpha 2 Fraction 0.7 0.5 - 0.9 g/dL [facility] Beta Fraction 0.8 0.6 - 1.1 g/dL [facility] Gamma Globulin Fraction 1.7 0.7 - 1.7 g/dL [facility] Interpretation Albumin decreased. This [facility] may indicate protein [facility] malnutrition or a protein losing state. There is a possible restriction present within the gamma region. Please refer to serum immunofixation electrophoresis. Pathologist: Karie Butcher MD [facility] (electronic signature) [facility] Protein, Total 6.2 6.0 - 8.3 gm/dL [facility] Specimen Blood Performing Organization Address [facility] Phone Number [address] [address] CENTER Uric acid (08/21/2018 6:59 PM CDT) Uric Acid 7.6 (H) 2.6 - 7.2 mg/dL [facility] Specimen Blood Performing Organization Address [facility] Phone Number [address] [address] [phone] [place] PTH, intact (08/21/2018 6:59 PM CDT) PTH 330.9 (H) 8.5 - 72.5 pg/mL [facility] Specimen Blood Performing Organization Address [facility] Phone Number [address] [address] [place] Osmolality, serum (08/21/2018 6:59 PM CDT) Osmolality Serum 307 (H) 280 - 303 mOsm/kg [facility] Specimen Blood Performing Organization Address City/[facility] Phone Number [facility] [address] [place] [address] Sodium, random urine (08/21/2018 6:45 PM CDT) Sodium Urine 48 meq/L [facility] Specimen Urine Narrative Performed At Reference Range: No Normals [facility] Performing Organization Address [facility] Phone Number [address] [address] [phone] [place] Protein, random urine (08/21/2018 6:45 PM CDT) Protein, Urine 265 (H) 0 - 14 mg/dL [facility] Specimen Urine Performing Organization Address [facility] Phone Number [address] [address] [phone] [place] Potassium, random urine (08/21/2018 6:45 PM CDT) Potassium Urine 14.7 meq/L [facility] Specimen Urine Narrative Performed At Reference Range: No Normals [facility] Performing Organization Address [facility] Phone Number [address] [address] [place] Osmolality, urine (08/21/2018 6:45 PM CDT) Osmolality, Ur 300 40-1,400 mOsm/kg [facility] Specimen Urine Performing Organization Address [facility] Phone Number [facility] [address] [place] [address] [phone] Creatinine, random urine (08/21/2018 6:45 PM CDT) Creatinine, Ur 84.6 mg/dL [facility] Specimen Urine Narrative Performed At Reference Range: No Normals [facility] Performing Organization Address [facility] Phone Number [address] [address] [place] Chloride, random urine (08/21/2018 6:45 PM CDT) ChlorideUr 29 meq/L [facility] Specimen Urine Narrative Performed At Reference Range: No Normals [facility] Performing Organization Address City/State/Zipcode Phone Number [facility] [address] [place] [address] CENTER Eosinophil smear (08/21/2018 6:45 PM CDT) Eosinophil Smear No EOS seen No EOS seen [facility] Specimen Urine Narrative Performed At Many bacteria seen on stained smears. [facility] Performing Organization Address City/State/Zipcode Phone Number [facility] [address] [place] [address] CENTER XR chest 1 view portable / bedside (08/21/2018 4:01 PM CDT)Only the most recent of2 resultswithin the time period is included. Specimen Narrative Performed At FINAL REPORT [facility] TECHNIQUE: Frontal chest radiograph dated 08/21/2018. CLINICAL HISTORY: S/P Right thoracentesis COMPARISON STUDY: Chest radiograph dated 08/20/2018 IMPRESSION: Right pleural effusion has decreased. Stable small left pleural effusion with associated atelectasis, underlying pneumonia should be excluded clinically. There is interstitial pulmonary edema. No pneumothorax. Cardiomediastinal silhouette is stable in appearance. Degenerative changes are seen in the spine. Signed: Ilia Rodriguez MD Report Verified Date/Time:08/21/2018 16:17:23 Reading Location: [facility] Radiology Reading Room Procedure Note Interface, External Ris In - 08/21/2018 4:19 PM CDT FINAL REPORT TECHNIQUE: Frontal chest radiograph dated 08/21/2018. CLINICAL HISTORY: S/P Right thoracentesis COMPARISON STUDY: Chest radiograph dated 08/20/2018 IMPRESSION: Right pleural effusion has decreased. Stable small left pleural effusion with associated atelectasis, underlying pneumonia should be excluded clinically. There is interstitial pulmonary edema. No pneumothorax. Cardiomediastinal silhouette is stable in appearance. Degenerative changes are seen in the spine. Signed: Ilia Rodriguez MD Report Verified Date/Time: 08/21/2018 16:17:23 Reading Location: [facility] Radiology Reading Room Performing Organization Address City/State/Zipcode Phone Number [facility] Cytology (08/21/2018 3:57 PM CDT) Case Report Medical Cytology Report Case: [id number] [facility] Authorizing Provider:Celestino Bailey MDCollected: 08/21/2018 1557 [facility] Ordering Location: [address] Received: 08/22/2018 0854 Pathologist: Mariano Cutler MD Specimen:Pleural, Right DIAGNOSIS RIGHT PLEURAL FLUID (CYTOSPINS): [facility] - NO MALIGNANT CELLS IDENTIFIED (SEE COMMENT) [facility] - REACTIVE MESOTHELIAL CELLS WITH CHRONIC INFLAMMATION Signing Pathologist Direct Phone Line: [phone] COMMENT Only a small amount of fluid was received for cytology evaluation. If clinically discordant, repeat thoracentesis with larger amount of fluid sent for cytology evaluation may be considered. [facility] CPT Code(s) 00416 [facility] CLINICAL DATA Right pleural effusion, [facility] history of hepatocellular [facility] cancer SPECIMEN SOURCE RIGHT PLEURAL FLUID [facility] GROSS DESCRIPTION 5 mls cuca; 4 cytospins [facility] Collected: [id number] [facility] Received: [id number] STATEMENT OF ADEQUACY Satisfactory [facility] Gross assessment was [facility] performed at [place], Department [facility] Pathology, [address] [place] [address], [place] [address], Technical component was [facility] performed at [place], Department of [facility] Pathology, [address] [place] [address], [place] [address], Professional component was [facility] performed at Center, Department of [facility] Pathology, [address] [place] [address], [place] [address], Specimen Body Fluid Narrative Performed At Performing Organization Address City/[facility]/Zipcode Phone Number [facility] [address] [place] [phone] CENTER Body fluid cell count with differential (08/21/2018 3:56 PM CDT)Only the most recent of2 resultswithin the time period is included. Appearance Hazy (A) Clear [facility] Color Yellow (A) Colorless, Straw [facility] RBCs 2,990 (H) <=1 /cu mm [facility] Adjusted WBC Count 130 (H) <=5 /cu mm [facility] Lining Cells 0 <=1 /cu mm [facility] % Segs 12 % [facility] % Lymphs 79 % [facility] % Monos 9 % [facility] % Eos 0 % [facility] % Baso 0 % [facility] Container Body Fluid EDTA Tube [facility] Specimen Body Fluid Performing Organization Address City/State/Zipcode Phone Number [facility] [address] [place] [address] [phone] [place] Protein, body fluid (08/21/2018 3:45 PM CDT)Only the most recent of2 resultswithin the time period is included. Protein, Fluid 2.4 Light's criteria identifies [facility] effusions if one or more are MEDICAL CENTER present: Pleural to serum protein ratio of more than 0.5; Pleural to Serum LDH of more than 0.6; Pleural LDH of more than two third of upper serum reference limit g/dL Specimen Body Fluid Narrative Performed At Absence of reference range indicates that [facility] normals have not been defined. Assay performance has not been validated for this type of specimen. Performing Organization Address [facility] Phone Number [address] [address] C[place] Lactate dehydrogenase (LDH), body fluid (08/21/2018 3:45 PM CDT)Only the most recent of2 resultswithin the time period is included. LDH, Fluid <90 Light's criteria identifies [facility] MEDICAL effusions if one or more are CENTER present: Pleural to serum protein ratio of more than 0.5; Pleural to serum LDH ratio of more than 0.6; Pleural LDH more than two third of upper serum reference limit U/L Specimen Body Fluid Narrative Performed At Absence of reference range indicates that [facility] normals have not been defined. Assay performance has not been validated for this type of specimen. Performing Organization Address [facility] Phone Number [address] [address] C[place] Magnesium (08/21/2018 5:26 AM CDT)Only the most recent of2 resultswithin the time period is included. Magnesium 2.5 1.6 - 2.6 mg/dL [facility] Specimen Blood Performing Organization Address [facility] Phone Number [address] [address] [place] Body fluid culture + gram stain (08/20/2018 5:55 PM CDT) Result No growth [facility] Gram Stain Result <1+ WBCs [facility] Gram Stain Result No organisms seen [facility] Specimen Body Fluid Performing Organization Address [facility] Phone Number [address] [address] [phone] CENTER pH, body fluid (08/20/2018 5:53 PM CDT) pH, Body Fluid 7.75 [facility] Specimen Body Fluid Performing Organization Address City/State/Zipcode Phone Number [facility] [address] [place] [address] [place] Triglycerides, body fluid (08/20/2018 5:53 PM CDT) Triglycerides, Fluid 32 mg/dL [facility] Specimen Body Fluid Narrative Performed At Reference Range:No Normals [facility] Assay performance has not been validated for this type of specimen. Performing Organization Address City/[facility]/Zipcode Phone Number [facility] [address] [place] [address] [place] Albumin, body fluid (08/20/2018 5:53 PM CDT) Albumin, Fluid 1.5 gm/dL [facility] Specimen Body Fluid Narrative Performed At Reference Range:No Normals [facility] Assay performance has not been validated for this type of specimen. Performing Organization Address City/[facility] Phone Number [facility] [address] [place] [address] [place] US thoracentesis (08/20/2018 5:45 PM CDT) Specimen Narrative Performed At FINAL REPORT [facility] PROCEDURE: Ultrasound-guided thoracentesis INDICATION: 63-year-old woman with left pleural effusion. DESCRIPTION: After obtaining informed written consent, ultrasound scan showed pleural effusion on the left. The overlying skin was prepped and draped in the usual, sterile fashion and local 2% lidocaine anesthesia was administered. A 4 [place] catheter was advanced into the pleural cavity and 1200 cc of serous fluid was removed. The catheter was removed without immediate complication. Samples were sent for analysis. IMPRESSION: Uncomplicated ultrasound-guided left thoracentesis with 1200 cc fluid removed. Signed: Bello Sauceda MD Report Verified Date/Time:08/20/2018 18:21:53 Reading Location: [address] Ultrasound Reading Room Procedure Note Interface, External Ris In - 08/20/2018 6:24 PM CDT FINAL REPORT PROCEDURE: Ultrasound-guided thoracentesis INDICATION: 63-year-old woman with left pleural effusion. DESCRIPTION: After obtaining informed written consent, ultrasound scan showed pleural effusion on the left. The overlying skin was prepped and draped in the usual, sterile fashion and local 2% lidocaine anesthesia was administered. A 4 B[place]udian catheter was advanced into the pleural cavity and 1200 cc of serous fluid was removed. The catheter was removed without immediate complication. Samples were sent for analysis. IMPRESSION: Uncomplicated ultrasound-guided left thoracentesis with 1200 cc fluid removed. Signed: Bello Sauceda MD Report Verified Date/Time: 08/20/2018 18:21:53 Reading Location: [address] Ultrasound Reading Room Performing Organization Address [facility] Phone Number [facility] PT/aPTT (08/20/2018 9:59 AM CDT) Protime 14.1 11.9 - 14.2 seconds [facility] INR 1.2 <=5.9 [facility] PTT 39.4 (H) 22.5 - 36.0 seconds [facility] Specimen Blood Narrative Performed At Effective 08/20/2018: PT Reference Range [facility] Change New: 11.9-14.2Previous: 11.7-14.7 RECOMMENDED COUMADIN/WARFARIN INR THERAPY RANGES STANDARD DOSE: 2.0-3.0Includes: PROPHYLAXIS for venous thrombosis, systemic embolization; TREATMENT for venous thrombosis and/or pulmonary embolus. HIGH RISK: Target INR is 2.5-3.5 for patients wiht mechanical heart valves. Performing Organization Address City/[facility]/Zipcode Phone Number [place] [id number] [place] [address] CENTER CBC with platelet count + automated diff (08/20/2018 5:46 AM CDT)Only the most recent of2 resultswithin the time period is included. WBC 4.2 3.5 - 10.5 K/L [facility] RBC 3.03 (L) 3.93 - 5.22 M/L [facility] Hemoglobin 7.7 (L) 11.2 - 15.7 GM/DL [facility] Hematocrit 24.9 (L) 34.1 - 44.9 % [facility] MCV 82.2 79.4 - 94.8 fL [facility] MCH 25.4 (L) 25.6 - 32.2 pg [facility] MCHC 30.9 (L) 32.2 - 35.5 GM/DL [facility] RDW 14.1 11.7 - 14.4 % [facility] Platelets 177 150 - 450 K/CU MM [facility] MPV 9.8 9.4 - 12.3 fL [facility] nRBC 0 0 - 0 /100 WBC [facility] % Neutros 45 % [facility] % Lymphs 38 % [facility] % Monos 14 % [facility] % Eos 3 % [facility] % Baso 1 % [facility] # Neutros 1.85 1.56 - 6.13 K/L [facility] # Lymphs 1.56 1.18 - 3.74 K/L [facility] # Monos 0.58 (H) 0.24 - 0.36 K/L [facility] # Eos 0.11 0.04 - 0.36 K/L [facility] # Baso 0.02 0.01 - 0.08 K/L [facility] Immature Granulocytes-Relative 1 0 - 1 % [facility] Specimen Blood Performing Organization Address City/State/Zipcode Phone Number [facility] [address] [place] [address] [phone] CENTER Basic Metabolic Panel (08/20/2018 5:46 AM CDT) Sodium 138 136 - 145 meq/L [facility] Potassium 4.5 3.5 - 5.1 meq/L [facility] Chloride 108 (H) 98 - 107 meq/L [facility] CO2 23 22 - 29 meq/L [facility] BUN 48 (H) 7 - 21 mg/dL [facility] Creatinine 2.81 (H) 0.57 - 1.25 mg/dL [facility] Glucose 36 (LL) 70 - 105 mg/dL [facility] Calcium 8.4 8.4 - 10.2 mg/dL [facility] EGFR 17Comment: ESTIMATED GFR IS mL/min/1.73 sq m [facility] NOT ACCURATE CREATININE [facility] CLEARANCE IN PREDICTING GLOMERULAR FILTRATION RATE. ESTIMATED GFR IS NOT APPLICABLE FOR DIALYSIS PATIENTS. Specimen Blood Performing Organization Address City/State/Zipcode Phone Number [facility] [address] [place] [address] [place] US abdomen limited (08/18/2018 11:25 PM CDT) Specimen Narrative Performed At FINAL REPORT [employer] INDICATION: history of liver transplant COMPARISON: None. TECHNIQUE:Real-time transabdominal miranda scale and color Doppler ultrasound of the abdomen. FINDINGS: Liver: Size: 15.8cm. Echogenicity: Coarsened hepatic echotexture. Masses/lesions: None. Surface Nodularity: None. Intrahepatic bile ducts: Normal. Common bile duct: 0.5 cm. MPV: 1.0cm. Gallbladder: Surgically absent. Pancreas: Head and uncinate process: Unremarkable. Body and tail: Not well-seen. Right kidney: Size: 11.0 x 4.4 x 5.2 cm. Parenchyma: Normal echogenicity. No cysts. No stones. Hydronephrosis: None. Ascites: None. Regional Vasculature: The visible abdominal aorta, IVC and hepatic veins are patent. The aorta measures 2.3 cm proximally, 1.7 cm in the midportion, distally not well-seen secondary to poor acoustic windowing. Additional findings: Small to moderate right pleural effusion.. IMPRESSION: Postsurgical changes of an orthotopic liver transplant with slightly coarsened hepatic echotexture suggesting hepatocellular dysfunction. Small to moderate volume right pleural effusion. Signed: Kalani Fuentes MD Report Verified Date/Time:08/19/2018 03:23:10 Reading Location: [facility] C0[facility] Transitional Reading Room Procedure Note Interface, External Ris In - 08/19/2018 3:25 AM CDT FINAL REPORT INDICATION: history of liver transplant COMPARISON: None. TECHNIQUE: Real-time transabdominal miranda scale and color Doppler ultrasound of the abdomen. FINDINGS: Liver: Size: 15.8cm. Echogenicity: Coarsened hepatic echotexture. Masses/lesions: None. Surface Nodularity: None. Intrahepatic bile ducts: Normal. Common bile duct: 0.5 cm. MPV: 1.0cm. Gallbladder: Surgically absent. Pancreas: Head and uncinate process: Unremarkable. Body and tail: Not well-seen. Right kidney: Size: 11.0 x 4.4 x 5.2 cm. Parenchyma: Normal echogenicity. No cysts. No stones. Hydronephrosis: None. Ascites: None. Regional Vasculature: The visible abdominal aorta, IVC and hepatic veins are patent. The aorta measures 2.3 cm proximally, 1.7 cm in the midportion, distally not well-seen secondary to poor acoustic windowing. Additional findings: Small to moderate right pleural effusion.. IMPRESSION: Postsurgical changes of an orthotopic liver transplant with slightly coarsened hepatic echotexture suggesting hepatocellular dysfunction. Small to moderate volume right pleural effusion. Signed: Kalani Fuentes MD Report Verified Date/Time: 08/19/2018 03:23:10 Reading Location: [facility] C0[facility] Transitional Reading Room Performing Organization Address City/State/Zipcode Phone Number [facility] ECHOCARDIOGRAM REPORT - SCAN (08/18/2018 9:20 PM CDT) Narrative Performed At XR chest 2 views (08/18/2018 1:32 PM CDT) Specimen Narrative Performed At FINAL REPORT [facility] INDICATION: bilateral effusions, dyspnea COMPARISON: March 07, 2015 TECHNIQUE: Frontal and lateral views of the chest. FINDINGS: Lungs and pleura: Interstitial congestive changes predominantly centrally. Trace right and moderate left pleural effusions. Heart and mediastinum: Normal heart size. Unremarkable mediastinal contours. Osseous structures: No acute abnormality. Additional findings: None. IMPRESSION: Trace right and moderate left pleural effusions and mild central edema. Signed: JR Mclean Robert MD Report Verified Date/Time:08/18/2018 13:39:03 Reading Location: [address] Neuro Reading Room Procedure Note Interface, External Ris In - 08/18/2018 1:41 PM CDT FINAL REPORT INDICATION: bilateral effusions, dyspnea COMPARISON: March 07, 2015 TECHNIQUE: Frontal and lateral views of the chest. FINDINGS: Lungs and pleura: Interstitial congestive changes predominantly centrally. Trace right and moderate left pleural effusions. Heart and mediastinum: Normal heart size. Unremarkable mediastinal contours. Osseous structures: No acute abnormality. Additional findings: None. IMPRESSION: Trace right and moderate left pleural effusions and mild central edema. Signed: JR Mclean Robert MD Report Verified Date/Time: 08/18/2018 13:39:03 Reading Location: [address] Neuro Reading Room Performing Organization Address City/State/Zipcode Phone Number GE RIS Hemoglobin A1c (08/18/2018 5:24 AM CDT) Hemoglobin A1C 5.5 4.3 - 6.1 % [facility] Specimen Blood Performing Organization Address City/State/Zipcode Phone Number [address] [address] CENTER 2D Echo W/Doppler(CW/PW/Color) (08/17/2018 5:05 PM CDT) Ejection Fraction [facility] Specimen Narrative Performed At Transthoracic Echocardiography Report (TTE) [facility] [employer] [facility] Demographics Patient [place] of Study08/17/2018 MARCIN Gender Female Visit [id number] Race Unknown [id number] Number Date of 1955 ReferringTristin Stern Physician Age 63 year(s) SonographerAbed Vishal Interpreting Physician ElroyMD FellowHeather MD Amari Procedure Type of Study TTE procedure:2DECHO W DOPPLER(CW/PW/COLOR) (STAT) Indications:Initial evaluation of valvular or structural heart disease. Clinical History HGB 7.3 HCT 23.8 % CANCER DMII HTN LIVER TRANSPLANT 09/30/14 R&L CATH PCI 02/16/14 Height: 66 inches Weight: 96.62 kg (213 lbs) BSA: 2.05 m^2 BMI: 34.38 kg/m^2 HR: 77 bpm BP: 162/74 mmHg Summary All of the LV segments are hyperkinetic . LVEF by Pearson's method of disk assessment is increased (>70%) . Moderate mitral annular calcification. Trace mitral regurgitation. Mild mitral stenosis. A trace of tricuspid regurgitation. Estimated peak systolic PA pressure is 55-60 mmHg . The estimated RA pressure by IVC dynamics 11-15mmHg . No significant pericardial effusion is visualized. Signature Findings Rhythm/BPRegular sinus rhythm during the exam. Left Ventricle LV endocardium is adequately visualized with IV ul trasound enhancing agent. Th e left ventricle is chamber size (by vol index) is normal (female - LVED vol - 29-61ml/m2). No rmal LV wall thickness. Al l of the LV segments are hyperkinetic . LV EF by Pearson's method of disk assessment is in creased (>70%) . De gree of diastolic dysfunction (LAP assessment) is in conclusive due to mitral annular calcification . Left AtriumLA size is moderately enlarged (42-48 ml/m2) . Right VentricleThe right ventricular chamber size and systolic fu nction are within normal limits. Right Atrium RA size is normal. Aortic Valve Mild AoV cusp thickening. Mi ld AoV cusp calcification. Mi ld aortic regurgitation. Mitral Valve Moderate mitral leaflet thickening. Mo derate mitral annular calcification. Tr adrianna mitral regurgitation. Mi ld mitral stenosis. Tricuspid ValveMild TV leaflet thickening. A trace of tricuspid regurgitation. Es timated peak systolic PA pressure is 55-60 mmHg . Pulmonic Valve Normal PV structure and function by limited views an d Doppler. A trace of pulmonary regurgitation. AortaAortic root size (SInus of Valsalva diameter) is no rmal . PericardiumNo significant pericardial effusion is visualized. IVC/SVC/PA/PV/PleuralThe estimated RA pressure by IVC dynamics 11-15mmHg . Chambers/Structures Left Atrium LA Volume: 86.4 mlLA Area: 24.24 cm^2 LA Vol. Index: 42 ml/m^2 Left Ventricle LVIDd: 4.67 cm LVIDs: 3.41 cm LV Septum Diastolic: 0.94 cm LV PW Diastolic: 1.09 cmLV FS: 27 % LVEDV Pearson's:110.32 ml LVESV Pearson's:22.66 mlLVEDVI: 54 ml/m^2 LVEF Pearson's: 79.5 %LVESV I: 11 ml/m^2 LVOT Diameter: 2.15 cm Aorta Ao Root S of Janice.: 3.02 cm Doppler/Quantitative Measurements Mitral Valve MV Peak E-Wave: 1.69 m/s MV Peak A-Wave: 1.49 m/s P1/2t: 52.5 msec E/A Ratio: 1.14 Mean Velocity: 1.14 m/sPeak Gradient: 11.44 mmHg Mean Gradient: 5.96 mmHg MV Area (PHT): 4.19 cm^2 Area (continuity): 1.98 cm^2 MV VTI: 48.47 cm MV Rosales. Peak: 1.67 m/s Aortic Valve Peak Velocity: 1.5 m/s Mean Velocity: 1.01 m/s Peak Gradient: 8.97 mmHg Mean Gradient: 4.67 mmHg AV Area (continuity): 2.8 cm^2 AV VTI: 34.37 cm AR P1/2t: 336.4 msec Deceleration Time: 287 msec AV DVI: 0.77 LVOT Peak Velocity: 1.01 m/s Peak Gradient: 4.11 mmHg Mean Velocity: 0.68 m/s Mean Gradient: 2.09 mmHg LVOT Diameter: 2.15 cmLVOT VTI: 26.5 cm LVOT Area: 3.63 cm^2LVOT SV:96.16 ml LVOT CO: 7.4 l/minLVOT CI: 3.61 l/min/m^2 Tricuspid Valve TR Velocity: 3.24 m/s TR Gradient: 42.02 mmHg Procedure Note Interface, External Ris In - 08/18/2018 6:01 PM CDT Transthoracic Echocardiography Report (TTE) Demographics Patient Name PAM KO Date of Study 08/17/2018 MARCIN Gender Female Visit Number [id number] Race Unknown Room Number 2542 Number Date of 1955 Referring Tristin Stern Physician Age 63 year(s) Retail Sales Associate Abed Vishal Interpreting Pineda Sung, Physician Fellow Aura Fitzpatrick MD Procedure Type of Study TTE procedure:2DECHO W DOPPLER(CW/PW/COLOR) (STAT) Indications:Initial evaluation of valvular or structural heart disease. Clinical History HGB 7.3 HCT 23.8 % CANCER DMII HTN LIVER TRANSPLANT 09/30/14 R&L CATH PCI 02/16/14 Height: 66 inches Weight: 96.62 kg (213 lbs) BSA: 2.05 m^2 BMI: 34.38 kg/m^2 HR: 77 bpm BP: 162/74 mmHg Summary All of the LV segments are hyperkinetic . LVEF by Pearson's method of disk assessment is increased (>70%) . Moderate mitral annular calcification. Trace mitral regurgitation. Mild mitral stenosis. A trace of tricuspid regurgitation. Estimated peak systolic PA pressure is 55-60 mmHg . The estimated RA pressure by IVC dynamics 11-15mmHg . No significant pericardial effusion is visualized. Signature Findings Rhythm/BP Regular sinus rhythm during the exam. Left Ventricle LV endocardium is adequately visualized with IV ultrasound enhancing agent. The left ventricle is chamber size (by vol index) is normal (female - LVED vol - 29-61ml/m2). Normal LV wall thickness. All of the LV segments are hyperkinetic . LVEF by Pearson's method of disk assessment is increased (>70%) . Degree of diastolic dysfunction (LAP assessment) is inconclusive due to mitral annular calcification . Left Atrium LA size is moderately enlarged (42-48 ml/m2) . Right Ventricle The right ventricular chamber size and systolic function are within normal limits. Right Atrium RA size is normal. Aortic Valve Mild AoV cusp thickening. Mild AoV cusp calcification. Mild aortic regurgitation. Mitral Valve Moderate mitral leaflet thickening. Moderate mitral annular calcification. Trace mitral regurgitation. Mild mitral stenosis. Tricuspid Valve Mild TV leaflet thickening. A trace of tricuspid regurgitation. Estimated peak systolic PA pressure is 55-60 mmHg . Pulmonic Valve Normal PV structure and function by limited views and Doppler. A trace of pulmonary regurgitation. Aorta Aortic root size (SInus of Valsalva diameter) is normal . Pericardium No significant pericardial effusion is visualized. IVC/SVC/PA/PV/Pleural The estimated RA pressure by IVC dynamics 11-15mmHg . Chambers/Structures Left Atrium LA Volume: 86.4 ml LA Area: 24.24 cm^2 LA Vol. Index: 42 ml/m^2 Left Ventricle LVIDd: 4.67 cm LVIDs: 3.41 cm LV Septum Diastolic: 0.94 cm LV PW Diastolic: 1.09 cm LV FS: 27 % LVEDV Pearson's:110.32 ml LVESV Pearson's:22.66 ml LVEDVI: 54 ml/m^2 LVEF Pearson's: 79.5 % LVESVI: 11 ml/m^2 LVOT Diameter: 2.15 cm Aorta Ao Root S of Janice.: 3.02 cm Doppler/Quantitative Measurements Mitral Valve MV Peak E-Wave: 1.69 m/s MV Peak A-Wave: 1.49 m/s P1/2t: 52.5 msec E/A Ratio: 1.14 Mean Velocity: 1.14 m/s Peak Gradient: 11.44 mmHg Mean Gradient: 5.96 mmHg MV Area (PHT): 4.19 cm^2 Area (continuity): 1.98 cm^2 MV VTI: 48.47 cm MV Rosales. Peak: 1.67 m/s Aortic Valve Peak Velocity: 1.5 m/s Mean Velocity: 1.01 m/s Peak Gradient: 8.97 mmHg Mean Gradient: 4.67 mmHg AV Area (continuity): 2.8 cm^2 AV VTI: 34.37 cm AR P1/2t: 336.4 msec Deceleration Time: 287 msec AV DVI: 0.77 LVOT Peak Velocity: 1.01 m/s Peak Gradient: 4.11 mmHg Mean Velocity: 0.68 m/s Mean Gradient: 2.09 mmHg LVOT Diameter: 2.15 cm LVOT VTI: 26.5 cm LVOT Area: 3.63 cm^2 LVOT SV:96.16 ml LVOT CO: 7.4 l/min LVOT CI: 3.61 l/min/m^2 Tricuspid Valve TR Velocity: 3.24 m/s TR Gradient: 42.02 mmHg Performing Organization Address City/State/Zipcode Phone Number [facility] CT chest without IV contrast (08/17/2018 3:45 PM CDT) Specimen Narrative Performed At FINAL REPORT [employer] INDICATION: Shortness of breath. COMPARISON: None. TECHNIQUE: Chest CT exam WITHOUT intravenous contrast. The exam was performed according to our department dose-optimization protocol, which includes automated exposure control, adjustments of mA and kV according to patient size. Iterative reconstructions are also sometimes employed. FINDINGS: There are bilateral moderate pleural effusions with partial collapse of the left lung base and right posterior relaxation atelectasis. Pulmonary veins are not particularly engorged and no interstitial edema demonstrated. No pneumonia. Central airways are clear. There is extensive calcification of the mitral valve annulus and there is coronary artery calcification. The heart is normal in size and there is no pericardial effusion. Main pulmonary artery is prominent measuring 3.2 cm in diameter. This compares of the ascending thoracic aorta which measures 3.0 cm at the level of the right pulmonary artery. No supraclavicular, mediastinal, or hilar lymphadenopathy is demonstrated. Thyroid gland and esophagus are unremarkable. Osseous structures unremarkable. IMPRESSION: Bilateral moderate pleural effusions. Signed: Lyle Ramírez MD Report Verified Date/Time:08/17/2018 16:51:05 Reading Location: [address] Body Reading Room Procedure Note Interface, External Ris In - 08/17/2018 4:53 PM CDT FINAL REPORT INDICATION: Shortness of breath. COMPARISON: None. TECHNIQUE: Chest CT exam WITHOUT intravenous contrast. The exam was performed according to our department dose-optimization protocol, which includes automated exposure control, adjustments of mA and kV according to patient size. Iterative reconstructions are also sometimes employed. FINDINGS: There are bilateral moderate pleural effusions with partial collapse of the left lung base and right posterior relaxation atelectasis. Pulmonary veins are not particularly engorged and no interstitial edema demonstrated. No pneumonia. Central airways are clear. There is extensive calcification of the mitral valve annulus and there is coronary artery calcification. The heart is normal in size and there is no pericardial effusion. Main pulmonary artery is prominent measuring 3.2 cm in diameter. This compares of the ascending thoracic aorta which measures 3.0 cm at the level of the right pulmonary artery. No supraclavicular, mediastinal, or hilar lymphadenopathy is demonstrated. Thyroid gland and esophagus are unremarkable. Osseous structures unremarkable. IMPRESSION: Bilateral moderate pleural effusions. Signed: Lyle Ramírez MD Report Verified Date/Time: 08/17/2018 16:51:05 Reading Location: [address] Body Reading Room Performing Organization Address City/[facility]/Zipcode Phone Number GE RIS Urinalysis Microscopic Only (08/17/2018 2:03 PM CDT) RBC, UA <1 /HPF [facility] WBC, UA 1 /HPF [facility] Squam Epithel, UA 1 /HPF [facility] Specimen Urine Performing Organization Address [facility] Phone Number [address] [address] CENTER Urinalysis with Microscopic If Indicated (08/17/2018 2:03 PM CDT) Color, UA Light Yellow [facility] Clarity, UA Clear [facility] Specific Stone, UA 1.008 1.001 - 1.035 [facility] pH, UA 6.5 5.0 - 8.0 [facility] Protein, UA 200 mg/dL (A) Negative [facility] Glucose, UA Negative Negative [facility] Ketones, UA Negative Negative [facility] Bilirubin, UA Negative Negative [facility] Blood, UA Negative Negative [facility] Nitrite, UA Negative Negative [facility] Leukocytes, UA Negative Negative [facility] Urobilinogen, UA 0.2 0.2 - 1.0 mg/dL [facility] Specimen Source [facility] Specimen Urine Performing Organization Address [facility] Phone Number [address] [address] CENTER B-type Natriuretic Factor (BNP) (08/17/2018 2:02 PM CDT)Only the most recent of2 resultswithin the time period is included. BNP 549 (H) 0 - 100 pg/mL [facility] Specimen Blood Performing Organization Address City/State/Zipcode Phone Number [facility] [address] [place] [address] CENTER after 09/02/2017 Insurance Payer Benefit Plan / Group Subscriber ID Type Phone Address [employer] - MEDICARE UNITED MED[employer] HMO xxxxxxxxx MGD CARE Advance Directives For more information, please contact:[facility] [place], [place] [phone] Code Status Date Activated Date Inactivated Comments Full Code 08/17/2018 12:21 AM 08/23/2018 7:37 PM This code status was determined by: Patient Full Code 08/08/2016 2:34 PM 08/09/2016 7:38 [...]
--- OUTSIDE RECORDS SUMMARY | 2018-09-03 16:57 | XMS REPORT ---
:1955 [facility] [address] [place] [address] Care Team Providers Name Role Phone RAVIPALMA Lacy Unavailable Unavailable SHERLY DOUGLAS Unavailable Unavailable ALLIE RAMIREZ Unavailable Unavailable Problems This patient has no known problems. Allergies, Adverse Reactions, Alerts This patient has no known allergies or adverse reactions. Medications This patient has no known medications. Results Test Description Test Time Test Comments Text Results Atomic Results Result Comments URINE IMMUNOFIXATION, RANDOM 2018-08-27 16:27:00 Test Item Value Reference Range Comments PROTEIN, URINE (BEAKER) (test 240 mg/dL 0-14 abyz=5446) ALBUMIN URINE ELP (BEAKER) (test 59.2 % gfey=0999) GAMMA GLOBULIN URINE (BEAKER) (test 40.8 % uhwf=3493) URINE TOMA ID-402 (BEAKER) (test Urine immunofixation electrophoresis ioko=2607) reveals no monoclonal proteins or free light chains. [id number]-391 (BEAKER) (test Ian Morin M.D. (electonic signature) yfhe=8778) IMMUNOFIXATION ELECTROPHORESIS (TOMA)2018-08-27 16:09:00 Test Item Value Reference Range Comments IMMUNOGLOBULIN G (IGG) (BEAKER) 1790 mg/dL 540-1,822 (test tvcv=491) IMMUNOGLOBULIN A (IGA) (BEAKER) 282 mg/dL 63-484 (test vkgj=475) IMMUNOGLOBULIN M (IGM) (BEAKER) 52 mg/dL 22-293 (test kpmz=004) SERUM TOMA ID (BEAKER) (test No monoclonal proteins gglo=3862) detected. Polyclonal distribution of immunoglobulins. [id number]-048 (BEAKER) Ian Morin M.D. (test uhxf=2152) (electonic signature) BODY FLUID CULTURE + GRAM [id number] 15:47:00 Test Item Value Reference Range Comments CULTURE (BEAKER) (test vrau=7817) No growth GRAM STAIN RESULT (BEAKER) (test <1+ WBCs agex=7182) GRAM STAIN RESULT (BEAKER) (test No organisms seen lzft=16442) POCT-GLUCOSE [id number] 12:14:00 Test Item Value Reference Range Comments POC-GLUCOSE METER (BEAKER) 210 mg/dL 70-110 TESTED AT [address] (test htgh=3769) [place] [address] [id number] 12:01:00 Test Item Value Reference Range Comments POTASSIUM (BEAKER) (test wdsg=206) 5.2 meq/L 3.5-5.1 TACROLIMUS [id number] 11:52:00 Test Item Value Reference Range Comments TACROLIMUS BLOOD (BEAKER) (test qysp=404) 6.4 ng/mL 10.0-20.0 Please draw 30 min prior to AM dose. Thanks!POCT-GLUCOSE [id number] 08:13: 00 Test Item Value Reference Range Comments POC-GLUCOSE METER (BEAKER) 143 mg/dL 70-110 TESTED AT [address] (test rsya=1978) [place] [address] CREATININE [id number] 07:26:00 Test Item Value Reference Range Comments CREATININE CLEARANCE (BEAKER) (test ulut=370) 10.9 mL/min 70.0-140.0 VOLUME, TOTAL (BEAKER) (test iqbc=5507) 800 ml CREATININE URINE (BEAKER) (test putl=483) 76.9 mg/dL PATIENT HEIGHT (CM) (BEAKER) (test nujb=1177) 167.0 cm PATIENT WEIGHT (KG) (BEAKER) (test tpwt=3771) 95.300 kg PROTEIN, 24 HOUR [id number] 07:26:00 Test Item Value Reference Range Comments PROTEIN, 24HR URINE (BEAKER) (test ydbf=3904) 2000 mg/24hr 0-300 VOLUME, TOTAL (BEAKER) (test kwpa=1003) 800 ml PROTEIN, URINE (BEAKER) (test wpzo=0892) 250 mg/dL 0-14 COMPREHENSIVE METABOLIC [id number] 07:17:00 Test Item Value Reference Range Comments TOTAL PROTEIN (BEAKER) 6.6 gm/dL 6.0-8.3 (test acds=375) ALBUMIN (BEAKER) (test 3.0 g/dL 3.5-5.0 ixrv=2002) ALKALINE PHOSPHATASE 88 U/L 40-150 (BEAKER) (test pfih=056) BILIRUBIN TOTAL (BEAKER) 0.8 mg/dL 0.2-1.2 (test rilt=975) SODIUM (BEAKER) (test 136 meq/L 136-145 wbbt=849) POTASSIUM (BEAKER) (test 5.5 meq/L 3.5-5.1 bjyi=643) CHLORIDE (BEAKER) (test 108 meq/L 98-107 eepy=879) CO2 (BEAKER) (test 24 meq/L 22-29 ivaf=436) BLOOD UREA NITROGEN 51 mg/dL 7-21 (BEAKER) (test cbuv=485) CREATININE (BEAKER) (test 3.23 mg/dL 0.57-1.25 ueou=258) GLUCOSE RANDOM (BEAKER) 129 mg/dL 70-105 (test brls=755) CALCIUM (BEAKER) (test 8.3 mg/dL 8.4-10.2 vbuz=541) AST (SGOT) (BEAKER) (test 23 U/L 5-34 scaz=731) ALT (SGPT) (BEAKER) (test 24 U/L 6-55 bpiu=213) EGFR (BEAKER) (test 14 mL/min/1.73 sq m ESTIMATED GFR IS NOT yhie=6325) ACCURATE CREATININE CLEARANCE IN PREDICTING GLOMERULAR FILTRATION RATE. ESTIMATED GFR IS NOT APPLICABLE FOR DIALYSIS PATIENTS. CBC (HEMOGRAM ONLY)2018-08-23 06:58:00 Test Item Value Reference Range Comments WHITE BLOOD CELL COUNT (BEAKER) (test nbbn=758) 4.0 K/ L 3.5-10.5 RED BLOOD CELL COUNT (BEAKER) (test xuxj=995) 3.16 M/ L 3.93-5.22 HEMOGLOBIN (BEAKER) (test udpe=243) 7.9 GM/DL 11.2-15.7 HEMATOCRIT (BEAKER) (test pnal=280) 25.6 % 34.1-44.9 MEAN CORPUSCULAR VOLUME (BEAKER) (test mjci=357) 81.0 fL 79.4-94.8 MEAN CORPUSCULAR HEMOGLOBIN (BEAKER) (test 25.0 pg 25.6-32.2 stdt=568) MEAN CORPUSCULAR HEMOGLOBIN CONC (BEAKER) (test 30.9 GM/DL 32.2-35.5 tagy=810) RED CELL DISTRIBUTION WIDTH (BEAKER) (test 14.2 % 11.7-14.4 ciac=284) PLATELET COUNT (BEAKER) (test frjs=825) 166 K/CU MM 150-450 MEAN PLATELET VOLUME (BEAKER) (test aoix=905) 9.7 fL 9.4-12.3 NUCLEATED RED BLOOD CELLS (BEAKER) (test 0 /100 WBC 0-0 lath=335) ANTI-NUCLEAR ANTIBODY (WOODY)2018-08-23 06:01:00 Test Item Value Reference Range Comments ANTI-NUCLEAR ANTIBODY (WOODY) (BEAKER) (test Negative Negative tmyi=203) Test performed by IFA method.Test performed by IFA method.POCT-GLUCOSE [id number] 21:18:00 Test Item Value Reference Range Comments POC-GLUCOSE METER (BEAKER) 231 mg/dL 70-110 TESTED AT [facility] [address] [place] [id number] (test zpup=6699) [facility] [address] URINE PROTEIN ELECTROPHORESIS, [id number] 18:38:00 Test Item Value Reference Range Comments PROTEIN, URINE (BEAKER) 240 mg/dL 0-14 (test lyjj=6972) ALBUMIN URINE ELP (BEAKER) 59.2 % (test rfzm=3735) GAMMA GLOBULIN URINE 40.8 % (BEAKER) (test kmea=5853) UPEP, ID-438 (BEAKER) (test Urine protein study consistent xctl=7508) with glomerular dysfunction. There is a possible band present within the gamma region. Refer to serum immunofixation electrophoresis. [id number] Karie Butcher MD (electronic (BEAKER) (test lsmq=9088) signature) [id number] 17:59:00Medical Cytology Report Case: [id number] Authorizing Provider: Celestino Bailey MD Collected: 08/21/2018 1557 Ordering Location: [address] Received: 08/22/2018 0854 Pathologist: Mariano Cutler MD Specimen: Pleural, Right RIGHT PLEURAL FLUID (CYTOSPINS): - NO MALIGNANT CELLS IDENTIFIED (SEE COMMENT) - REACTIVE MESOTHELIAL CELLS WITH CHRONIC INFLAMMATION Signing Pathologist Direct Phone Line: Only a small amount of fluid was received for cytology evaluation. If clinically discordant, repeat thoracentesis with larger amount of fluid sent for cytologyevaluation may be considered. [id number] pleural effusion, history of hepatocellular cancerRIGHT PLEURAL FLUID5 mls cuca; 4 cytospinsCollected: [id number]: [id number] [facility], Department of [facility]ology, [address] [place] [address], [facility], [facility] of [facility], [address] [place] [address], [facility], Department of Pathology, [address] [place], [place] [address], GPQZ-GLUCOSE [id number] 17:07:00 Test Item Value Reference Range Comments POC-GLUCOSE METER (BEAKER) 174 mg/dL 70-110 TESTED AT [address] (test ojfk=6456) [place] [id number] PROTEIN ELECTROPHORESIS, [id number] 15:51:00 Test Item Value Reference Range Comments ALBUMIN FRACTION (BEAKER) 2.8 g/dL 3.5-5.5 (test habp=825) ALPHA 1 FRACTION (BEAKER) 0.2 g/dL 0.2-0.4 (test qqkh=953) ALPHA 2 FRACTION (BEAKER) 0.7 g/dL 0.5-0.9 (test wazk=864) BETA FRACTION (BEAKER) 0.8 g/dL 0.6-1.1 (test ofbi=401) GAMMA GLOBULIN FRACTION 1.7 g/dL 0.7-1.7 (BEAKER) (test sepn=872) INTERPRETATION-119 (BEAKER) Albumin decreased. This may (test jbrz=6079) indicate protein malnutrition or a protein losing state. There is a possible restriction present within the gamma region. Please refer to serum immunofixation electrophoresis. [id number] Karie Butcher MD (electronic (BEAKER) (test elvj=5763) signature) PROTEIN TOTAL SERUM, SPEP 6.2 gm/dL 6.0-8.3 (BEAKER) (test ytju=3912) RHEUMATOID FACTOR AB, REFLEX TO [id number] 12:56:00 Test Item Value Reference Range Comments RHEUMATOID FACTOR (BEAKER) (test lxhk=772) Negative [id number] 12:47:00 Test Item Value Reference Range Comments RPR SCREEN (BEAKER) (test fbfj=296) Nonreactive Nonreactive POCT-GLUCOSE [id number] 12:30:00 Test Item Value Reference Range Comments POC-GLUCOSE METER (BEAKER) 200 mg/dL 70-110 TESTED AT [address] (test lxna=6994) [facility] [address] OSMOLALITY, [id number] 11:29:00 Test Item Value Reference Range Comments OSMOLALITY URINE (BEAKER) (test dzyg=135) 300 mOsm/kg 40-1,400 OSMOLALITY, [id number] 10:58:00 Test Item Value Reference Range Comments OSMOLALITY, SERUM (BEAKER) (test shjo=977) 307 mOsm/kg 280-303 TACROLIMUS [id number] 09:13:00 Test Item Value Reference Range Comments TACROLIMUS BLOOD (BEAKER) (test ufdj=292) 8.5 ng/mL 10.0-20.0 Please draw 30 min prior to AM dose. Thanks!POCT-GLUCOSE [id number] 09:01: 00 Test Item Value Reference Range Comments POC-GLUCOSE METER (BEAKER) 156 mg/dL 70-110 TESTED AT [facility] [address] [facility] (test wwmd=7173) [facility] [address] HEPATITIS PANEL, [id number] 07:30:00 Test Item Value Reference Range Comments HEPATITIS A IGM ANTIBODY (BEAKER) (test Nonreactive Nonreactive soku=177) HEPATITIS B CORE IGM ANTIBODY (BEAKER) (test Nonreactive Nonreactive xjyy=602) HEPATITIS C ANTIBODY (BEAKER) (test zttn=752) Reactive Nonreactive HEPATITIS B SURFACE ANTIGEN (2) (BEAKER) (test Nonreactive Nonreactive dsgv=6746) COMPREHENSIVE METABOLIC [id number] 06:31:00 Test Item Value Reference Range Comments TOTAL PROTEIN (BEAKER) 6.7 gm/dL 6.0-8.3 (test tdcb=514) ALBUMIN (BEAKER) (test 3.0 g/dL 3.5-5.0 wqlx=9029) ALKALINE PHOSPHATASE 86 U/L 40-150 (BEAKER) (test ypll=302) BILIRUBIN TOTAL (BEAKER) 0.7 mg/dL 0.2-1.2 (test qlsc=053) SODIUM (BEAKER) (test 134 meq/L 136-145 gncq=607) POTASSIUM (BEAKER) (test 5.1 meq/L 3.5-5.1 zpen=084) CHLORIDE (BEAKER) (test 106 meq/L 98-107 emqm=874) CO2 (BEAKER) (test 23 meq/L 22-29 jnzj=772) BLOOD UREA NITROGEN 50 mg/dL 7-21 (BEAKER) (test decx=264) CREATININE (BEAKER) (test 3.45 mg/dL 0.57-1.25 ugma=141) GLUCOSE RANDOM (BEAKER) 158 mg/dL 70-105 (test uuse=536) CALCIUM (BEAKER) (test 8.2 mg/dL 8.4-10.2 vvpp=285) AST (SGOT) (BEAKER) (test 21 U/L 5-34 uozm=820) ALT (SGPT) (BEAKER) (test 21 U/L 6-55 vbgq=086) EGFR (BEAKER) (test 13 mL/min/1.73 sq m ESTIMATED GFR IS NOT gehc=0410) ACCURATE CREATININE CLEARANCE IN PREDICTING GLOMERULAR FILTRATION RATE. ESTIMATED GFR IS NOT APPLICABLE FOR DIALYSIS PATIENTS. CBC (HEMOGRAM ONLY)2018-08-22 05:51:00 Test Item Value Reference Range Comments WHITE BLOOD CELL COUNT (BEAKER) (test isju=294) 3.8 K/ L 3.5-10.5 RED BLOOD CELL COUNT (BEAKER) (test wbjd=793) 3.05 M/ L 3.93-5.22 HEMOGLOBIN (BEAKER) (test hagd=576) 7.6 GM/DL 11.2-15.7 HEMATOCRIT (BEAKER) (test rvtb=642) 24.8 % 34.1-44.9 MEAN CORPUSCULAR VOLUME (BEAKER) (test rfcv=344) 81.3 fL 79.4-94.8 MEAN CORPUSCULAR HEMOGLOBIN (BEAKER) (test 24.9 pg 25.6-32.2 wggh=936) MEAN CORPUSCULAR HEMOGLOBIN CONC (BEAKER) (test 30.6 GM/DL 32.2-35.5 tmkf=361) RED CELL DISTRIBUTION WIDTH (BEAKER) (test 14.2 % 11.7-14.4 ielf=574) PLATELET COUNT (BEAKER) (test sopu=209) 161 K/CU MM 150-450 MEAN PLATELET VOLUME (BEAKER) (test sugs=721) 9.5 fL 9.4-12.3 NUCLEATED RED BLOOD CELLS (BEAKER) (test 0 /100 WBC 0-0 kart=868) HEPATITIS B CORE ANTIBODY, [id number] 22:36:00 Test Item Value Reference Range Comments HEPATITIS B CORE TOTAL ANTIBODY (BEAKER) (test Nonreactive Nonreactive xmgx=675) HIV-1 ANTIGEN WITH HIV-1/2 [id number] 22:36:00 Test Item Value Reference Range Comments HIV-1 ANTIGEN WITH HIV 1\T\2 ANTIBODY (2) Nonreactive Nonreactive (BEAKER) (test gumh=6424) COMPLEMENT COMPONENT [id number] 22:13:00 Test Item Value Reference Range Comments C4 COMPLEMENT (BEAKER) (test ieeu=587) 21 mg/dL 15-57 COMPLEMENT COMPONENT [id number] 22:13:00 Test Item Value Reference Range Comments C3 COMPLEMENT (BEAKER) (test czbf=361) 81 mg/dL 82-193 [id number] 22:11:00 Test Item Value Reference Range Comments CREATININE (BEAKER) (test 3.45 mg/dL 0.57-1.25 fgcm=238) EGFR (BEAKER) (test 13 mL/min/1.73 sq m ESTIMATED GFR IS NOT qxyv=1031) ACCURATE CREATININE CLEARANCE IN PREDICTING GLOMERULAR FILTRATION RATE. ESTIMATED GFR IS NOT APPLICABLE FOR DIALYSIS PATIENTS. POCT-GLUCOSE [id number] 21:35:00 Test Item Value Reference Range Comments POC-GLUCOSE METER (BEAKER) 244 mg/dL 70-110 TESTED AT [address] (test qkui=5869) [facility] [address] EOSINOPHIL SMEAR, [id number] 20:09:00 Test Item Value Reference Range Comments EOSINOPHIL SMEAR, URINE (BEAKER) (test No EOS seen No EOS seen fzsp=1201) Many bacteria seen on stained smears.PROTEIN, RANDOM [id number] 19:59:00 Test Item Value Reference Range Comments PROTEIN, URINE (BEAKER) (test fylk=7866) 265 mg/dL 0-14 PTH, [id number] 19:43:00 Test Item Value Reference Range Comments PARATHYROID HORMONE INTACT (BEAKER) (test 330.9 pg/mL 8.5-72.5 bmwe=703) URIC [id number] 19:36:00 Test Item Value Reference Range Comments URIC ACID (BEAKER) (test hxem=778) 7.6 mg/dL 2.6-7.2 CHLORIDE, RANDOM [id number] 19:36:00 Test Item Value Reference Range Comments CHLORIDE URINE (BEAKER) (test iqul=353) 29 meq/L Reference Range: No NormalsCREATININE, RANDOM [id number] 19:36:00 Test Item Value Reference Range Comments CREATININE URINE (BEAKER) (test rmox=315) 84.6 mg/dL Reference Range: No NormalsPOTASSIUM, RANDOM [id number] 19:36:00 Test Item Value Reference Range Comments POTASSIUM URINE (BEAKER) (test ayjv=587) 14.7 meq/L Reference Range: No NormalsSODIUM, RANDOM [id number] 19:36:00 Test Item Value Reference Range Comments SODIUM URINE (BEAKER) (test yosn=289) 48 meq/L Reference Range: No NormalsBODY FLUID CELL COUNT WITH [id number] 18: 20:00 Test Item Value Reference Range Comments APPEARANCE FLUID (BEAKER) (test zgnk=492) Hazy Clear COLOR FLUID (BEAKER) (test bofj=610) Yellow Colorless, Straw RBC FLUID (BEAKER) (test fzyg=184) 2990 /cu mm <=1 ADJUSTED WBC FLUID (BEAKER) (test weig=3636) 130 /cu mm <=5 LINING CELLS (BEAKER) (test glxz=1015) 0 /cu mm <=1 NEUTROPHILS FLUID (BEAKER) (test nwqq=8320) 12 % LYMPHS FLUID (BEAKER) (test auha=242) 79 % MONO/MACROPHAGE FLUID (BEAKER) (test hmpp=903) 9 % EOSINOPHILS FLUID (BEAKER) (test rtkq=859) 0 % BASO FLUID (BEAKER) (test yotu=407) 0 % CONTAINER BODY FLUID (BEAKER) (test bolo=3055) EDTA Tube LACTATE DEHYDROGENASE (LDH), BODY [id number] 17:26:00 Test Item Value Reference Range Comments LACTATE DEHYDROGENASE FLUID (BEAKER) < U/L Light's criteria identifies (test iusn=401) effusions if one or more are pre Absence of reference range indicates that normals have not been defined.Assay performance has not been validated for this type of specimen.PROTEIN, BODY [id number] 17:26:00 Test Item Value Reference Range Comments PROTEIN FLUID (BEAKER) (test 2.4 g/dL Light's criteria identifies otxb=236) effusions if one or more are pre Absence of reference range indicates that normals have not been defined.Assay performance has not been validated for this type of specimen.POCT-GLUCOSE [id number] 17:08:00 Test Item Value Reference Range Comments POC-GLUCOSE METER (BEAKER) 148 mg/dL 70-110 TESTED AT [address] (test vmcn=8042) [facility] [address] RAD, CHEST, 1 VIEW, NON [id number] 16:17:00Reason for exam:->s/p right thoracentesisShould this be performed at the bedside?->YesFINAL REPORT TECHNIQUE: Frontal chest radiograph dated 08/21/2018. CLINICAL HISTORY: S/P Right thoracentesis COMPARISON STUDY: Chest radiograph dated 08/20/2018 IMPRESSION:Right pleural effusion has decreased. Stable small left pleural effusion with associated atelectasis, underlying pneumonia should be excluded clinically. There is interstitial pulmonary edema. No pneumothorax.Cardiomediastinal silhouette is stable in appearance. Degenerative changes are seen in the spine. Signed: Ilia Rodriguezeport Verified Date /Time: 08/21/2018 16:17:23 Reading Location: [facility] Radiology Reading Room POCT-GLUCOSE [id number] 12:51:00 Test Item Value Reference Range Comments POC-GLUCOSE METER (BEAKER) 133 mg/dL 70-110 TESTED AT [address] (test jyqy=7303) [facility] [address] TACROLIMUS [id number] 10:14:00 Test Item Value Reference Range Comments TACROLIMUS BLOOD (BEAKER) (test kdjt=176) 7.6 ng/mL 10.0-20.0 Please draw 30 min prior to AM dose. Thanks!POCT-GLUCOSE [id number] 09:34: 00 Test Item Value Reference Range Comments POC-GLUCOSE METER (BEAKER) 108 mg/dL 70-110 TESTED AT [address] (test oucz=6223) [facility] [address] POCT-GLUCOSE [id number] 08:41:00 Test Item Value Reference Range Comments POC-GLUCOSE METER (BEAKER) 45 mg/dL 70-110 TESTED AT [address] (test rbsv=4125) [facility] [address] POCT-GLUCOSE [id number] 08:22:00 Test Item Value Reference Range Comments POC-GLUCOSE METER (BEAKER) 37 mg/dL 70-110 TESTED AT [address] (test qvdr=0939) [facility] [address] COMPREHENSIVE METABOLIC [id number] 06:29:00 Test Item Value Reference Range Comments TOTAL PROTEIN (BEAKER) 6.4 gm/dL 6.0-8.3 (test reah=014) ALBUMIN (BEAKER) (test 2.9 g/dL 3.5-5.0 wvbx=0702) ALKALINE PHOSPHATASE 82 U/L 40-150 (BEAKER) (test koyh=139) BILIRUBIN TOTAL (BEAKER) 0.6 mg/dL 0.2-1.2 (test urjt=176) SODIUM (BEAKER) (test 135 meq/L 136-145 vjzf=247) POTASSIUM (BEAKER) (test 4.7 meq/L 3.5-5.1 ztcn=199) CHLORIDE (BEAKER) (test 107 meq/L 98-107 ikab=802) CO2 (BEAKER) (test 22 meq/L 22-29 tgrs=347) BLOOD UREA NITROGEN 47 mg/dL 7-21 (BEAKER) (test ahgz=577) CREATININE (BEAKER) (test 3.18 mg/dL 0.57-1.25 fknc=824) GLUCOSE RANDOM (BEAKER) 65 mg/dL 70-105 (test inow=288) CALCIUM (BEAKER) (test 8.1 mg/dL 8.4-10.2 jyrk=312) AST (SGOT) (BEAKER) (test 25 U/L 5-34 adal=034) ALT (SGPT) (BEAKER) (test 22 U/L 6-55 ruyn=868) EGFR (BEAKER) (test 15 mL/min/1.73 sq m ESTIMATED GFR IS NOT hjlx=3639) ACCURATE CREATININE CLEARANCE IN PREDICTING GLOMERULAR FILTRATION RATE. ESTIMATED GFR IS NOT APPLICABLE FOR DIALYSIS PATIENTS. [id number] 06:18:00 Test Item Value Reference Range Comments MAGNESIUM (BEAKER) (test yvki=597) 2.5 mg/dL 1.6-2.6 CBC (HEMOGRAM ONLY)2018-08-21 05:53:00 Test Item Value Reference Range Comments WHITE BLOOD CELL COUNT (BEAKER) (test pjez=109) 3.4 K/ L 3.5-10.5 RED BLOOD CELL COUNT (BEAKER) (test pntt=222) 2.81 M/ L 3.93-5.22 HEMOGLOBIN (BEAKER) (test pqjh=008) 7.1 GM/DL 11.2-15.7 HEMATOCRIT (BEAKER) (test hrtr=059) 23.2 % 34.1-44.9 MEAN CORPUSCULAR VOLUME (BEAKER) (test inbg=442) 82.6 fL 79.4-94.8 MEAN CORPUSCULAR HEMOGLOBIN (BEAKER) (test 25.3 pg 25.6-32.2 npes=124) MEAN CORPUSCULAR HEMOGLOBIN CONC (BEAKER) (test 30.6 GM/DL 32.2-35.5 fcjg=496) RED CELL DISTRIBUTION WIDTH (BEAKER) (test 14.2 % 11.7-14.4 wwlo=350) PLATELET COUNT (BEAKER) (test zdho=181) 153 K/CU MM 150-450 MEAN PLATELET VOLUME (BEAKER) (test fehj=545) 9.5 fL 9.4-12.3 NUCLEATED RED BLOOD CELLS (BEAKER) (test 0 /100 WBC 0-0 fniz=476) POCT-GLUCOSE [id number] 21:32:00 Test Item Value Reference Range Comments POC-GLUCOSE METER (BEAKER) 197 mg/dL 70-110 TESTED AT [facility] [address] [facility] (test gaia=8554) [facility] [address] PH, BODY [id number] 19:33:00 Test Item Value Reference Range Comments PH, BODY FLUID (BEAKER) (test demk=8244) 7.75 ALBUMIN, BODY [id number] 19:29:00 Test Item Value Reference Range Comments ALBUMIN FLUID (BEAKER) (test xaxf=422) 1.5 gm/dL Reference Range: No Normals Assay performance has not been validated for this type of specimen.BODY FLUID CELL COUNT WITH [id number] 19:26:00 Test Item Value Reference Range Comments APPEARANCE FLUID (BEAKER) (test aatt=426) Hazy Clear COLOR FLUID (BEAKER) (test xbye=167) Straw Colorless, Straw RBC FLUID (BEAKER) (test hyed=401) 3000 /cu mm <=1 ADJUSTED WBC FLUID (BEAKER) (test dtlq=5256) 767 /cu mm <=5 LINING CELLS (BEAKER) (test wmjk=1703) 0 /cu mm <=1 NEUTROPHILS FLUID (BEAKER) (test cddo=0154) 6 % LYMPHS FLUID (BEAKER) (test uvzm=311) 75 % MONO/MACROPHAGE FLUID (BEAKER) (test ryvp=147) 19 % EOSINOPHILS FLUID (BEAKER) (test mwrw=400) 0 % BASO FLUID (BEAKER) (test gzva=544) 0 % CONTAINER BODY FLUID (BEAKER) (test iddx=9327) EDTA Tube LACTATE DEHYDROGENASE (LDH), BODY [id number] 19:22:00 Test Item Value Reference Range Comments LACTATE DEHYDROGENASE FLUID (BEAKER) < U/L Light's criteria identifies (test rbkk=376) effusions if one or more are pre Absence of reference range indicates that normals have not been defined.Assay performance has not been validated for this type of specimen.PROTEIN, BODY [id number] 19:22:00 Test Item Value Reference Range Comments PROTEIN FLUID (BEAKER) (test 3.0 g/dL Light's criteria identifies eybp=210) effusions if one or more are pre Absence of reference range indicates that normals have not been defined.Assay performance has not been validated for this type of specimen.TRIGLYCERIDES, BODY [id number] 19:22:00 Test Item Value Reference Range Comments TRIGLYCERIDES FLUID (BEAKER) (test tliu=959) 32 mg/dL Reference Range: No Normals Assay performance has not been validated for this type of specimen.RAD, CHEST, 1 VIEW, NON [id number] 19:16:00Reason for exam: ->left thoracentesisShould this be performed at the bedside?->YesFINAL REPORT Chest, 1 view Clinical history: left thoracentesis Comparison: 08/18/2018 Discussion: Status post left thoracentesis without pneumothorax. Interval decrease in left pleural effusion. Again seen is a layering right pleural effusion. The cardiac silhouette is enlargedwith perihilar pulmonary edema. No acute osseous abnormality is seen. Signed: Bud Wongort Verified Date/Time: 08/20/2018 19:16:27 Reading Location: [facility] C013X Ortho Consult Reading Room U/S, [id number] 18:21:00Laterality?-> LeftReason for exam:->pleural effusionFINAL REPORT PROCEDURE: Ultrasound-guided thoracentesis INDICATION: 63-year-old woman with left pleural effusion. DESCRIPTION: After obtaining informed written consent, ultrasound scan showed pleural effusion on the left. The overlying skin was prepped and draped in the usual, sterile fashion and local 2% lidocaine anesthesia was administered. A 4 Kinyarwanda catheter was advanced into the pleural cavity and 1200 cc of serous fluid was removed. The catheter was removed without immediate complication. Samples were sent for analysis. IMPRESSION: Uncomplicated ultrasound-guided left thoracentesis with 1200 cc fluid removed. Signed: Bello Saucedaort Verified Date/Time: 08/20/2018 18:21:53 Reading Location: [facility] [id number] Ultrasound Reading Room POCT-GLUCOSE [id number] 11:46:00 Test Item Value Reference Range Comments POC-GLUCOSE METER (BEAKER) 173 mg/dL 70-110 TESTED AT [facility] [address] [facility] (test docu=3936) [facility] [address] [id number] 10:26:00 Test Item Value Reference Range Comments PROTIME (BEAKER) (test fksg=599) 14.1 seconds 11.9-14.2 INR (BEAKER) (test aelo=533) 1.2 <=5.9 PARTIAL THROMBOPLASTIN TIME (BEAKER) (test 39.4 seconds 22.5-36.0 mjon=957) Effective 08/20/2018: PT Reference Range ChangeNew: 11.9-14.2 Previous: 11.7- 14.7RECOMMENDED COUMADIN/WARFARIN INR THERAPY RANGESSTANDARD DOSE: 2.0-3.0 Includes: PROPHYLAXIS for venous thrombosis, systemic embolization; TREATMENT for venous thrombosis and/or pulmonary embolus.HIGH RISK: Target INR is2.5-3.5 for patients wiht mechanical heart valves.TACROLIMUS [id number] 10:20:00 Test Item Value Reference Range Comments TACROLIMUS BLOOD (BEAKER) (test volv=883) 7.2 ng/mL 10.0-20.0 Please draw 30 min prior to AM dose. Thanks!POCT-GLUCOSE [id number] 08:05: 00 Test Item Value Reference Range Comments POC-GLUCOSE METER (BEAKER) 64 mg/dL 70-110 TESTED AT [facility] [address] [place] [address] (test lkya=9028) [facility] [address] CBC W/PLT COUNT & AUTO [id number] 07:03:00 Test Item Value Reference Range Comments WHITE BLOOD CELL COUNT (BEAKER) (test xahz=453) 4.2 K/ L 3.5-10.5 RED BLOOD CELL COUNT (BEAKER) (test zwqx=834) 3.03 M/ L 3.93-5.22 HEMOGLOBIN (BEAKER) (test leoj=022) 7.7 GM/DL 11.2-15.7 HEMATOCRIT (BEAKER) (test azlr=337) 24.9 % 34.1-44.9 MEAN CORPUSCULAR VOLUME (BEAKER) (test ysrz=083) 82.2 fL 79.4-94.8 MEAN CORPUSCULAR HEMOGLOBIN (BEAKER) (test 25.4 pg 25.6-32.2 grsy=006) MEAN CORPUSCULAR HEMOGLOBIN CONC (BEAKER) (test 30.9 GM/DL 32.2-35.5 rnvx=795) RED CELL DISTRIBUTION WIDTH (BEAKER) (test 14.1 % 11.7-14.4 ejwf=839) PLATELET COUNT (BEAKER) (test seus=521) 177 K/CU MM 150-450 MEAN PLATELET VOLUME (BEAKER) (test bdst=827) 9.8 fL 9.4-12.3 NUCLEATED RED BLOOD CELLS (BEAKER) (test 0 /100 WBC 0-0 fahe=067) NEUTROPHILS RELATIVE PERCENT (BEAKER) (test 45 % zfta=037) LYMPHOCYTES RELATIVE PERCENT (BEAKER) (test 38 % ynxh=957) MONOCYTES RELATIVE PERCENT (BEAKER) (test 14 % wldi=597) EOSINOPHILS RELATIVE PERCENT (BEAKER) (test 3 % dzky=268) BASOPHILS RELATIVE PERCENT (BEAKER) (test 1 % yfim=543) NEUTROPHILS ABSOLUTE COUNT (BEAKER) (test 1.85 K/ L 1.56-6.13 giqa=912) LYMPHOCYTES ABSOLUTE COUNT (BEAKER) (test 1.56 K/ L 1.18-3.74 xqod=802) MONOCYTES ABSOLUTE COUNT (BEAKER) (test 0.58 K/ L 0.24-0.36 fjfu=683) EOSINOPHILS ABSOLUTE COUNT (BEAKER) (test 0.11 K/ L 0.04-0.36 sgth=574) BASOPHILS ABSOLUTE COUNT (BEAKER) (test 0.02 K/ L 0.01-0.08 yixn=834) IMMATURE GRANULOCYTES-RELATIVE PERCENT (BEAKER) 1 % 0-1 (test pmpi=0150) BASIC METABOLIC [id number] 06:57:00 Test Item Value Reference Range Comments SODIUM (BEAKER) (test 138 meq/L 136-145 isxh=038) POTASSIUM (BEAKER) (test 4.5 meq/L 3.5-5.1 tcac=531) CHLORIDE (BEAKER) (test 108 meq/L 98-107 cvap=893) CO2 (BEAKER) (test 23 meq/L 22-29 pfuc=590) BLOOD UREA NITROGEN 48 mg/dL 7-21 (BEAKER) (test pqmd=626) CREATININE (BEAKER) (test 2.81 mg/dL 0.57-1.25 xayf=404) GLUCOSE RANDOM (BEAKER) 36 mg/dL 70-105 (test didu=286) CALCIUM (BEAKER) (test 8.4 mg/dL 8.4-10.2 pbkc=054) EGFR (BEAKER) (test 17 mL/min/1.73 sq m ESTIMATED GFR IS NOT vlah=7651) ACCURATE CREATININE CLEARANCE IN PREDICTING GLOMERULAR FILTRATION RATE. ESTIMATED GFR IS NOT APPLICABLE FOR DIALYSIS PATIENTS. [id number] 06:44:00 Test Item Value Reference Range Comments MAGNESIUM (BEAKER) (test fzwf=963) 2.5 mg/dL 1.6-2.6 POCT-GLUCOSE [id number] 22:17:00 Test Item Value Reference Range Comments POC-GLUCOSE METER (BEAKER) 131 mg/dL 70-110 TESTED AT [address] (test mizz=9083) [place] [id number] POCT-GLUCOSE [id number] 16:56:00 Test Item Value Reference Range Comments POC-GLUCOSE METER (BEAKER) 124 mg/dL 70-110 TESTED AT [address] (test qylg=8808) [place] [address] POCT-GLUCOSE [id number] 13:01:00 Test Item Value Reference Range Comments POC-GLUCOSE METER (BEAKER) 101 mg/dL 70-110 TESTED AT [address] (test qaha=9027) [place] [address] TACROLIMUS [id number] 08:59:00 Test Item Value Reference Range Comments TACROLIMUS BLOOD (BEAKER) (test swrz=107) 5.4 ng/mL 10.0-20.0 Please draw 30 min prior to AM dose. Thanks!POCT-GLUCOSE [id number] 08:57: 00 Test Item Value Reference Range Comments POC-GLUCOSE METER (BEAKER) 125 mg/dL 70-110 TESTED AT [address] (test wzvz=2309) [place] [address] POCT-GLUCOSE [id number] 08:30:00 Test Item Value Reference Range Comments POC-GLUCOSE METER (BEAKER) 48 mg/dL 70-110 TESTED AT [address] (test iqwv=5151) [place] [address] COMPREHENSIVE METABOLIC [id number] 06:46:00 Test Item Value Reference Range Comments TOTAL PROTEIN (BEAKER) 6.8 gm/dL 6.0-8.3 (test cilx=755) ALBUMIN (BEAKER) (test 3.1 g/dL 3.5-5.0 dguf=3241) ALKALINE PHOSPHATASE 84 U/L 40-150 (BEAKER) (test vxso=004) BILIRUBIN TOTAL (BEAKER) 0.7 mg/dL 0.2-1.2 (test gczr=849) SODIUM (BEAKER) (test 136 meq/L 136-145 fxuj=932) POTASSIUM (BEAKER) (test 4.1 meq/L 3.5-5.1 vzhr=929) CHLORIDE (BEAKER) (test 107 meq/L 98-107 hvkg=918) CO2 (BEAKER) (test 23 meq/L 22-29 lqug=026) BLOOD UREA NITROGEN 47 mg/dL 7-21 (BEAKER) (test ehpx=745) CREATININE (BEAKER) (test 2.78 mg/dL 0.57-1.25 bpsw=228) GLUCOSE RANDOM (BEAKER) 41 mg/dL 70-105 (test lgtk=981) CALCIUM (BEAKER) (test 8.2 mg/dL 8.4-10.2 nhlf=505) AST (SGOT) (BEAKER) (test 24 U/L 5-34 ipdw=379) ALT (SGPT) (BEAKER) (test 18 U/L 6-55 deds=127) EGFR (BEAKER) (test 17 mL/min/1.73 sq m ESTIMATED GFR IS NOT fqrx=2450) ACCURATE CREATININE CLEARANCE IN PREDICTING GLOMERULAR FILTRATION RATE. ESTIMATED GFR IS NOT APPLICABLE FOR DIALYSIS PATIENTS. CBC (HEMOGRAM ONLY)2018-08-19 06:29:00 Test Item Value Reference Range Comments WHITE BLOOD CELL COUNT (BEAKER) (test xlel=716) 4.1 K/ L 3.5-10.5 RED BLOOD CELL COUNT (BEAKER) (test vzpw=088) 2.99 M/ L 3.93-5.22 HEMOGLOBIN (BEAKER) (test fbzr=742) 7.5 GM/DL 11.2-15.7 HEMATOCRIT (BEAKER) (test bfbf=621) 24.7 % 34.1-44.9 MEAN CORPUSCULAR VOLUME (BEAKER) (test mvlc=832) 82.6 fL 79.4-94.8 MEAN CORPUSCULAR HEMOGLOBIN (BEAKER) (test 25.1 pg 25.6-32.2 luim=204) MEAN CORPUSCULAR HEMOGLOBIN CONC (BEAKER) (test 30.4 GM/DL 32.2-35.5 leav=637) RED CELL DISTRIBUTION WIDTH (BEAKER) (test 14.1 % 11.7-14.4 jdsa=453) PLATELET COUNT (BEAKER) (test ygxu=876) 167 K/CU MM 150-450 MEAN PLATELET VOLUME (BEAKER) (test ryog=645) 9.6 fL 9.4-12.3 NUCLEATED RED BLOOD CELLS (BEAKER) (test 0 /100 WBC 0-0 nymy=508) U/S, ABDOMINAL, [id number] 03:23:00Abdomen limited area? Add comment if clarification is needed.->Right upper quadrantReason for exam:->history of liver transplantFINAL REPORT INDICATION: history of liver transplant COMPARISON: None. TECHNIQUE: Real-time transabdominal miranda scale and color Doppler ultrasound of the abdomen. FINDINGS:Liver: Size: 15.8cm. Echogenicity: Coarsened hepatic echotexture. Masses/lesions: None.Surface Nodularity: None. Intrahepatic bile ducts: Normal. Common [...] well-seen secondary to poor acoustic windowing. Additional findings : Small to moderate right pleural effusion.. IMPRESSION: Postsurgical changes of an orthotopic liver transplant with slightly coarsened hepatic echotexture suggesting hepatocellular dysfunction. Smallto moderate volume right pleural effusion. Signed: Kalani Fuentes MDReport Verified Date/Time:08/19/2018 03: 23:10 Reading Location: [facility] C013T Transitional Reading Room POCT-GLUCOSE [id number] 22:31:00 Test Item Value Reference Range Comments POC-GLUCOSE METER (BEAKER) 123 mg/dL 70-110 TESTED AT [address] (test cgwe=8049) [facility] [address] POCT-GLUCOSE [id number] 18:04:00 Test Item Value Reference Range Comments POC-GLUCOSE METER (BEAKER) 138 mg/dL 70-110 TESTED AT [address] (test gzvf=0050) [facility] [address] RAD, CHEST, 2 [id number] 13:39:00Reason for exam:->bilateral effusions, dyspneaFINAL REPORT INDICATION: bilateral effusions, dyspnea COMPARISON: March 07, 2015 TECHNIQUE: Frontal and lateral views of the chest. FINDINGS: Lungs and pleura: Interstitial congestive changes predominantly centrally. Trace right and moderate left pleural effusions.Heart and mediastinum: Normal heart size. Unremarkable mediastinal contours.Osseous structures: No acute abnormality.Additional findings: None. IMPRESSION: Trace right and moderate left pleural effusions and mildcentral edema. Signed: JR Vinay, Diandra Davis Verified Date/Time: 08/18/2018 13:39:03 Reading Location: [facility] C013V Neuro Reading Room POCT-GLUCOSE [id number] 12:06: 00 Test Item Value Reference Range Comments POC-GLUCOSE METER (BEAKER) 116 mg/dL 70-110 TESTED AT [address] (test plsh=1441) [facility] [address] TACROLIMUS [id number] 09:28:00 Test Item Value Reference Range Comments TACROLIMUS BLOOD (BEAKER) (test smba=486) 5.1 ng/mL 10.0-20.0 Please draw 30 min prior to AM dose. Thanks!HEMOGLOBIN [id number] 08:28:00 Test Item Value Reference Range Comments HEMOGLOBIN A1C (BEAKER) (test clvh=312) 5.5 % 4.3-6.1 POCT-GLUCOSE [id number] 08:07:00 Test Item Value Reference Range Comments POC-GLUCOSE METER (BEAKER) 111 mg/dL 70-110 TESTED AT [facility] [address] [facility] (test jytn=0811) [facility] [address] COMPREHENSIVE METABOLIC [id number] 07:18:00 Test Item Value Reference Range Comments TOTAL PROTEIN (BEAKER) 6.7 gm/dL 6.0-8.3 (test rlny=855) ALBUMIN (BEAKER) (test 3.0 g/dL 3.5-5.0 gtyy=8423) ALKALINE PHOSPHATASE 85 U/L 40-150 (BEAKER) (test akmf=207) BILIRUBIN TOTAL (BEAKER) 0.8 mg/dL 0.2-1.2 (test mrnx=982) SODIUM (BEAKER) (test 136 meq/L 136-145 usje=873) POTASSIUM (BEAKER) (test 4.1 meq/L 3.5-5.1 bfes=280) CHLORIDE (BEAKER) (test 106 meq/L 98-107 bicq=658) CO2 (BEAKER) (test 22 meq/L 22-29 foyu=506) BLOOD UREA NITROGEN 50 mg/dL 7-21 (BEAKER) (test peet=332) CREATININE (BEAKER) (test 2.83 mg/dL 0.57-1.25 vrke=417) GLUCOSE RANDOM (BEAKER) 85 mg/dL 70-105 (test dawh=734) CALCIUM (BEAKER) (test 8.2 mg/dL 8.4-10.2 nkds=840) AST (SGOT) (BEAKER) (test 26 U/L 5-34 utyy=295) ALT (SGPT) (BEAKER) (test 20 U/L 6-55 foam=140) EGFR (BEAKER) (test 17 mL/min/1.73 sq m ESTIMATED GFR IS NOT qfsz=2701) ACCURATE CREATININE CLEARANCE IN PREDICTING GLOMERULAR FILTRATION RATE. ESTIMATED GFR IS NOT APPLICABLE FOR DIALYSIS PATIENTS. CBC (HEMOGRAM ONLY)2018-08-18 06:27:00 Test Item Value Reference Range Comments WHITE BLOOD CELL COUNT (BEAKER) (test ybno=571) 3.9 K/ L 3.5-10.5 RED BLOOD CELL COUNT (BEAKER) (test macd=152) 2.86 M/ L 3.93-5.22 HEMOGLOBIN (BEAKER) (test jayg=353) 7.2 GM/DL 11.2-15.7 HEMATOCRIT (BEAKER) (test dwpx=543) 23.7 % 34.1-44.9 MEAN CORPUSCULAR VOLUME (BEAKER) (test mvqh=129) 82.9 fL 79.4-94.8 MEAN CORPUSCULAR HEMOGLOBIN (BEAKER) (test 25.2 pg 25.6-32.2 buvt=298) MEAN CORPUSCULAR HEMOGLOBIN CONC (BEAKER) (test 30.4 GM/DL 32.2-35.5 lqwr=990) RED CELL DISTRIBUTION WIDTH (BEAKER) (test 14.1 % 11.7-14.4 zpfb=549) PLATELET COUNT (BEAKER) (test evsi=844) 157 K/CU MM 150-450 MEAN PLATELET VOLUME (BEAKER) (test mmwi=252) 9.8 fL 9.4-12.3 NUCLEATED RED BLOOD CELLS (BEAKER) (test 0 /100 WBC 0-0 gsgc=742) POCT-GLUCOSE [id number] 17:32:00 Test Item Value Reference Range Comments POC-GLUCOSE METER (BEAKER) 91 mg/dL 70-110 TESTED AT [facility] [address] [facility] (test gnxi=8097) [facility] [address] CT, CHEST, WITHOUT [id number] 16:51:00FINAL REPORT INDICATION: Shortness of breath. COMPARISON:None. TECHNIQUE: Chest CT exam WITHOUT intravenous contrast. The exam was performed according to our department dose-optimization protocol, which includes automated exposure control , adjustments of mA and kV according to patient size. Iterative reconstructions are also sometimes employed. FINDINGS:There are bilateral moderate pleural effusions with partial [...] Bilateral moderate pleural effusions. Signed: Lyle Ramírez MDReport Verified Date/Time: 08/17/2018 16: 51:05 Reading Location: [facility] C013Y VA Body Reading Room POCT-GLUCOSE [id number] 16:23:00 Test Item Value Reference Range Comments POC-GLUCOSE METER (BEAKER) 46 mg/dL 70-110 TESTED AT [facility] [address] [facility] (test foxk=7509) [facility] [address] B-TYPE NATRIURETIC FACTOR (BNP)2018-08-17 15:08:00 Test Item Value Reference Range Comments B-TYPE NATRIURETIC PEPTIDE (BEAKER) (test 549 pg/mL 0-100 uyuw=356) URINALYSIS WITH MICROSCOPIC IF [id number] 14:47:00 Test Item Value Reference Range Comments COLOR (BEAKER) (test rtyn=642) Light Yellow CLARITY (BEAKER) (test espq=934) Clear SPECIFIC GRAVITY UA (BEAKER) (test ybgd=736) 1.008 1.001-1.035 PH UA (BEAKER) (test qnmr=497) 6.5 5.0-8.0 PROTEIN UA (BEAKER) (test eoeu=067) 200 mg/dL Negative GLUCOSE UA (BEAKER) (test xdya=425) Negative Negative KETONES UA (BEAKER) (test njmn=251) Negative Negative BILIRUBIN UA (BEAKER) (test xnoc=808) Negative Negative BLOOD UA (BEAKER) (test pnuf=227) Negative Negative NITRITE UA (BEAKER) (test tfte=210) Negative Negative LEUKOCYTE ESTERASE UA (BEAKER) (test mvhq=186) Negative Negative UROBILINOGEN UA (BEAKER) (test uphp=253) 0.2 mg/dL 0.2-1.0 SOURCE(BEAKER) (test hiui=1189) URINALYSIS [id number] 14:47:00 Test Item Value Reference Range Comments RBC UA (BEAKER) (test baeb=100) < /HPF WBC UA (BEAKER) (test vqoo=269) 1 /HPF SQUAMOUS EPITHELIAL (BEAKER) (test wcvj=530) 1 /HPF POCT-GLUCOSE [id number] 12:28:00 Test Item Value Reference Range Comments POC-GLUCOSE METER (BEAKER) 75 mg/dL 70-110 TESTED AT [address] (test gjzi=7725) [facility] [address] TACROLIMUS [id number] 09:04:00 Test Item Value Reference Range Comments TACROLIMUS BLOOD (BEAKER) (test knwb=596) 6.2 ng/mL 10.0-20.0 POCT-GLUCOSE [id number] 08:53:00 Test Item Value Reference Range Comments POC-GLUCOSE METER (BEAKER) 87 mg/dL 70-110 TESTED AT [address] (test nbsu=0116) [facility] [address] POCT-GLUCOSE [id number] 08:40:00 Test Item Value Reference Range Comments POC-GLUCOSE METER (BEAKER) 57 mg/dL 70-110 TESTED AT [address] (test jebn=5818) [facility] [address] B-TYPE NATRIURETIC FACTOR (BNP)2018-08-17 06:16:00 Test Item Value Reference Range Comments B-TYPE NATRIURETIC PEPTIDE (BEAKER) (test 513 pg/mL 0-100 qbyx=678) COMPREHENSIVE METABOLIC [id number] 06:16:00 Test Item Value Reference Range Comments TOTAL PROTEIN (BEAKER) 6.7 gm/dL 6.0-8.3 (test udck=270) ALBUMIN (BEAKER) (test 3.0 g/dL 3.5-5.0 haag=8342) ALKALINE PHOSPHATASE 84 U/L 40-150 (BEAKER) (test xpdq=118) BILIRUBIN TOTAL (BEAKER) 0.6 mg/dL 0.2-1.2 (test jmyw=715) SODIUM (BEAKER) (test 137 meq/L 136-145 ckbw=120) POTASSIUM (BEAKER) (test 4.1 meq/L 3.5-5.1 oohr=331) CHLORIDE (BEAKER) (test 107 meq/L 98-107 tbqc=535) CO2 (BEAKER) (test 22 meq/L 22-29 txyn=696) BLOOD UREA NITROGEN 54 mg/dL 7-21 (BEAKER) (test naiq=715) CREATININE (BEAKER) (test 2.97 mg/dL 0.57-1.25 hbwi=193) GLUCOSE RANDOM (BEAKER) 45 mg/dL 70-105 (test rmug=078) CALCIUM (BEAKER) (test 8.4 mg/dL 8.4-10.2 lhta=195) AST (SGOT) (BEAKER) (test 22 U/L 5-34 ttqy=239) ALT (SGPT) (BEAKER) (test 16 U/L 6-55 flel=122) EGFR (BEAKER) (test 16 mL/min/1.73 sq m ESTIMATED GFR IS NOT xjhi=1718) ACCURATE CREATININE CLEARANCE IN PREDICTING GLOMERULAR FILTRATION RATE. ESTIMATED GFR IS NOT APPLICABLE FOR DIALYSIS PATIENTS. CBC W/PLT COUNT & AUTO [id number] 05:51:00 Test Item Value Reference Range Comments WHITE BLOOD CELL COUNT (BEAKER) (test mzhc=727) 3.4 K/ L 3.5-10.5 RED BLOOD CELL COUNT (BEAKER) (test yetg=136) 2.93 M/ L 3.93-5.22 HEMOGLOBIN (BEAKER) (test jsud=891) 7.3 GM/DL 11.2-15.7 HEMATOCRIT (BEAKER) (test bjwt=366) 23.8 % 34.1-44.9 MEAN CORPUSCULAR VOLUME (BEAKER) (test hqbx=139) 81.2 fL 79.4-94.8 MEAN CORPUSCULAR HEMOGLOBIN (BEAKER) (test 24.9 pg 25.6-32.2 vgce=763) MEAN CORPUSCULAR HEMOGLOBIN CONC (BEAKER) (test 30.7 GM/DL 32.2-35.5 nirz=648) RED CELL DISTRIBUTION WIDTH (BEAKER) (test 14.1 % 11.7-14.4 unia=978) PLATELET COUNT (BEAKER) (test iwyn=124) 173 K/CU MM 150-450 MEAN PLATELET VOLUME (BEAKER) (test ggnb=840) 9.7 fL 9.4-12.3 NUCLEATED RED BLOOD CELLS (BEAKER) (test 0 /100 WBC 0-0 zrhf=589) NEUTROPHILS RELATIVE PERCENT (BEAKER) (test 51 % ckum=015) LYMPHOCYTES RELATIVE PERCENT (BEAKER) (test 33 % onew=249) MONOCYTES RELATIVE PERCENT (BEAKER) (test 12 % niod=741) EOSINOPHILS RELATIVE PERCENT (BEAKER) (test 2 % gdnd=910) BASOPHILS RELATIVE PERCENT (BEAKER) (test 1 % qatm=747) NEUTROPHILS ABSOLUTE COUNT (BEAKER) (test 1.75 K/ L 1.56-6.13 izea=461) LYMPHOCYTES ABSOLUTE COUNT (BEAKER) (test 1.13 K/ L 1.18-3.74 gbgy=293) MONOCYTES ABSOLUTE COUNT (BEAKER) (test 0.42 K/ L 0.24-0.36 lbkz=868) EOSINOPHILS ABSOLUTE COUNT (BEAKER) (test 0.07 K/ L 0.04-0.36 fxdl=097) BASOPHILS ABSOLUTE COUNT (BEAKER) (test 0.02 K/ L 0.01-0.08 gfyk=368) IMMATURE GRANULOCYTES-RELATIVE PERCENT (BEAKER) 2 % 0-1 (test smye=5437) POCT-GLUCOSE [id number] 02:09:00 Test Item Value Reference Range Comments POC-GLUCOSE METER (BEAKER) 85 mg/dL 70-110 TESTED AT [facility] [address] [facility] (test vjju=9105) [facility] [address] HEPATITIS C PCR, [id number] 13:59:00 Test Item Value Reference Range Comments HCV RESULT COMPONENT (BEAKER) HCV RNA not detected HCV RNA not detected (test cbqw=2084) This test uses a Real-Time Polymerase Chain Reaction (RT-PCR) methodology and was performed using LAZ Ampliprep/LAZ TaqMan HCV test kit version 2.0 ( [employer]).Reportable range for this assay is 15 - 100,000, 000 IU per mL (1.18 - 8.00 Log IU/mL).TACROLIMUS [id number] 13:46:00 Test Item Value Reference Range Comments TACROLIMUS BLOOD (BEAKER) (test woke=351) 9.6 ng/mL 10.0-20.0 ALPHA FETOPROTEIN (AFP), TUMOR [id number] 13:23:00 Test Item Value Reference Range Comments ALPHA-FETOPROTEIN (BEAKER) (test vlth=1782) < ng/mL <10.0 Effective 02/09/2014: Reference Range ChangeNew: <10.0 Previous: 0.0- [id number] 13:04:00 Test Item Value Reference Range Comments PHOSPHORUS (BEAKER) (test ajmo=103) 4.5 mg/dL 2.3-4.7 [id number] 13:04:00 Test Item Value Reference Range Comments MAGNESIUM (BEAKER) (test ercp=860) 2.3 mg/dL 1.6-2.6 COMPREHENSIVE METABOLIC [id number] 13:04:00 Test Item Value Reference Range Comments TOTAL PROTEIN (BEAKER) 6.7 gm/dL 6.0-8.3 (test qjuu=659) ALBUMIN (BEAKER) (test 3.5 g/dL 3.5-5.0 vsrg=4595) ALKALINE PHOSPHATASE 120 U/L 40-150 (BEAKER) (test pxie=217) BILIRUBIN TOTAL (BEAKER) 0.7 mg/dL 0.2-1.2 (test escg=854) SODIUM (BEAKER) (test 140 meq/L 136-145 nhdg=342) POTASSIUM (BEAKER) (test 5.1 meq/L 3.5-5.1 yyfe=178) CHLORIDE (BEAKER) (test 108 meq/L 98-107 qhve=794) CO2 (BEAKER) (test 22 meq/L 22-29 vedm=556) BLOOD UREA NITROGEN 37 mg/dL 7-21 (BEAKER) (test emno=958) CREATININE (BEAKER) (test 1.16 mg/dL 0.57-1.25 npka=312) GLUCOSE RANDOM (BEAKER) 214 mg/dL 70-105 (test hygs=354) CALCIUM (BEAKER) (test 9.1 mg/dL 8.4-10.2 vzgl=313) AST (SGOT) (BEAKER) (test 16 U/L 5-34 pphp=137) ALT (SGPT) (BEAKER) (test 17 U/L 6-55 nltn=489) EGFR (BEAKER) (test 47 mL/min/1.73 sq m ESTIMATED GFR IS NOT xlnp=3214) ACCURATE CREATININE CLEARANCE IN PREDICTING GLOMERULAR FILTRATION RATE. ESTIMATED GFR IS NOT APPLICABLE FOR DIALYSIS PATIENTS. LIPID [id number] 13:04:00 Test Item Value Reference Range Comments TRIGLYCERIDES (BEAKER) (test erif=254) 170 mg/dL CHOLESTEROL (BEAKER) (test qtyg=086) 175 mg/dL HDL CHOLESTEROL (BEAKER) (test lfgs=470) 52 mg/dL LDL CHOLESTEROL CALCULATED (BEAKER) (test 89 mg/dL kpbm=382) Triglyceride Reference Range: Low Risk <150 Borderline 150- 199 High Risk 200-499 Very High Risk >=500Cholesterol Reference Range: Low Risk <200 Borderline 200-239 High Risk > 240HDL Cholesterol Reference Range: Low Risk >=60 High Risk <40LDL Cholesterol Reference Range: Optimal <100 Near Optimal 100-129 Borderline 130-159 High 160-189 Very High >=190BILIRUBIN, [id number] 13:04:00 Test Item Value Reference Range Comments BILIRUBIN DIRECT (BEAKER) (test kcmw=306) 0.2 mg/dL 0.1-0.5 CBC W/PLT COUNT & AUTO [id number] 12:37:00 Test Item Value Reference Range Comments WHITE BLOOD CELL COUNT (BEAKER) (test zptd=448) 5.8 K/ L 4.0-10.0 RED BLOOD CELL COUNT (BEAKER) (test gyza=129) 4.55 M/ L 4.00-5.00 HEMOGLOBIN (BEAKER) (test dtmj=605) 12.6 GM/DL 12.0-15.0 HEMATOCRIT (BEAKER) (test hzbb=610) 37.1 % 36.0-45.0 MEAN CORPUSCULAR VOLUME (BEAKER) (test lucm=783) 81.5 fL 82.0-99.0 MEAN CORPUSCULAR HEMOGLOBIN (BEAKER) (test 27.7 pg 27.0-33.0 oiux=196) MEAN CORPUSCULAR HEMOGLOBIN CONC (BEAKER) (test 34.0 GM/DL 32.0-36.0 whlu=519) RED CELL DISTRIBUTION WIDTH (BEAKER) (test 13.1 % 10.3-14.2 txzh=030) PLATELET COUNT (BEAKER) (test gxck=751) 158 K/CU MM 150-430 MEAN PLATELET VOLUME (BEAKER) (test pbqn=939) 7.3 fL 6.5-10.5 NUCLEATED RED BLOOD CELLS (BEAKER) (test 0 /100 WBC 0-0 iscd=279) NEUTROPHILS RELATIVE PERCENT (BEAKER) (test 51 % owrv=027) LYMPHOCYTES RELATIVE PERCENT (BEAKER) (test 27 % wovv=996) MONOCYTES RELATIVE PERCENT (BEAKER) (test 21 % diwm=745) EOSINOPHILS RELATIVE PERCENT (BEAKER) (test 2 % fjxk=145) BASOPHILS RELATIVE PERCENT (BEAKER) (test 0 % jyfv=665) NEUTROPHILS ABSOLUTE COUNT (BEAKER) (test 2.94 K/ L 1.80-8.00 prdh=860) LYMPHOCYTES ABSOLUTE COUNT (BEAKER) (test 1.54 K/ L 1.48-4.50 qhio=082) MONOCYTES ABSOLUTE COUNT (BEAKER) (test 1.19 K/ L 0.00-1.30 uhxb=661) EOSINOPHILS ABSOLUTE COUNT (BEAKER) (test 0.10 K/ L 0.00-0.50 mhes=092) BASOPHILS ABSOLUTE COUNT (BEAKER) (test 0.02 K/ L 0.00-0.20 yual=329) 0.00POCT-GLUCOSE [id number] 13:29:00 Test Item Value Reference Range Comments POC-GLUCOSE METER (BEAKER) 77 mg/dL 70-110 TESTED AT [address] (test rdqe=1326) [place] [id number] POCT-GLUCOSE [id number] 13:28:00 Test Item Value Reference Range Comments POC-GLUCOSE METER (BEAKER) 100 mg/dL 70-110 TESTED AT [address] (test lhqi=0571) [place] [id number] POCT-GLUCOSE [id number] 12:04:00 Test Item Value Reference Range Comments POC-GLUCOSE METER (BEAKER) 69 mg/dL 70-110 TESTED AT [address] (test sweb=6365) [place] [id number] CREATINE KINASE (CK), TOTAL AND [id number] 09:47:00 Test Item Value Reference Range Comments CREATINE KINASE TOTAL (BEAKER) (test edxe=388) 38 U/L 29-200 CREATINE KINASE-MB (BEAKER) (test ahcf=596) 1.1 ng/mL 0.0-6.6 CREATINE KINASE-MB INDEX (BEAKER) (test pvuz=860) 2.9 % Effective 02/09/2014: CK-MB Reference Range ChangeNew: 0.0-6.6 Previous: 0.0- 4.9CK-MB Reference Range:<6.7 Normal6.7-10.0 Borderline>10.0 AbnormalTACROLIMUS [id number] 09:04:00 Test Item Value Reference Range Comments TACROLIMUS BLOOD (BEAKER) (test tbca=910) 9.5 ng/mL 10.0-20.0 TROPONIN [id number] 08:43:00 Test Item Value Reference Range Comments TROPONIN I (BEAKER) (test lxtv=630) 0.01 ng/mL 0.00-0.03 Effective 02/09/2014: Reference Range [...] acute neurological disease, and persistent tachyarrhythmia.HEPATIC FUNCTION [id number] 05:43:00 Test Item Value Reference Range Comments TOTAL PROTEIN (BEAKER) (test sgxv=340) 6.0 gm/dL 6.0-8.3 ALBUMIN (BEAKER) (test peho=3308) 3.3 g/dL 3.5-5.0 BILIRUBIN TOTAL (BEAKER) (test xarm=678) 1.0 mg/dL 0.2-1.2 BILIRUBIN DIRECT (BEAKER) (test gilc=100) 0.3 mg/dL 0.1-0.5 ALKALINE PHOSPHATASE (BEAKER) (test cwya=596) 87 U/L 40-150 AST (SGOT) (BEAKER) (test rgby=841) 13 U/L 5-34 ALT (SGPT) (BEAKER) (test ziwh=065) 10 U/L 6-55 BASIC METABOLIC [id number] 05:43:00 Test Item Value Reference Range Comments SODIUM (BEAKER) (test 141 meq/L 136-145 alzt=982) POTASSIUM (BEAKER) (test 4.6 meq/L 3.5-5.1 zdys=555) CHLORIDE (BEAKER) (test 113 meq/L 98-107 fgul=773) CO2 (BEAKER) (test 23 meq/L 22-29 uhnu=965) BLOOD UREA NITROGEN 19 mg/dL 7-21 (BEAKER) (test pygs=630) CREATININE (BEAKER) (test 0.87 mg/dL 0.57-1.25 kdmo=441) GLUCOSE RANDOM (BEAKER) 76 mg/dL 70-105 (test vlae=967) CALCIUM (BEAKER) (test 8.8 mg/dL 8.4-10.2 ftpl=901) EGFR (BEAKER) (test 66 mL/min/1.73 sq m ESTIMATED GFR IS NOT xprk=4977) ACCURATE CREATININE CLEARANCE IN PREDICTING GLOMERULAR FILTRATION RATE. ESTIMATED GFR IS NOT APPLICABLE FOR DIALYSIS PATIENTS. CBC W/PLT COUNT & AUTO [id number] 05:33:00 Test Item Value Reference Range Comments WHITE BLOOD CELL COUNT (BEAKER) (test blho=529) 4.3 K/ L 4.0-10.0 RED BLOOD CELL COUNT (BEAKER) (test jnwf=486) 4.27 M/ L 4.00-5.00 HEMOGLOBIN (BEAKER) (test ftfm=642) 11.8 GM/DL 12.0-15.0 HEMATOCRIT (BEAKER) (test scnr=545) 33.3 % 36.0-45.0 MEAN CORPUSCULAR VOLUME (BEAKER) (test axqa=333) 77.8 fL 82.0-99.0 MEAN CORPUSCULAR HEMOGLOBIN (BEAKER) (test 27.6 pg 27.0-33.0 shmz=029) MEAN CORPUSCULAR HEMOGLOBIN CONC (BEAKER) (test 35.5 GM/DL 32.0-36.0 gjse=506) RED CELL DISTRIBUTION WIDTH (BEAKER) (test 14.4 % 10.3-14.2 dbyf=866) PLATELET COUNT (BEAKER) (test qcij=394) 136 K/CU MM 150-430 MEAN PLATELET VOLUME (BEAKER) (test tjnb=608) 7.0 fL 6.5-10.5 NUCLEATED RED BLOOD CELLS (BEAKER) (test 0 /100 WBC 0-0 lhyx=215) NEUTROPHILS RELATIVE PERCENT (BEAKER) (test 47 % quih=365) LYMPHOCYTES RELATIVE PERCENT (BEAKER) (test 34 % lmbc=523) MONOCYTES RELATIVE PERCENT (BEAKER) (test 16 % hszf=259) EOSINOPHILS RELATIVE PERCENT (BEAKER) (test 2 % iest=884) BASOPHILS RELATIVE PERCENT (BEAKER) (test 1 % vise=008) NEUTROPHILS ABSOLUTE COUNT (BEAKER) (test 2.00 K/ L 1.80-8.00 hlbb=682) LYMPHOCYTES ABSOLUTE COUNT (BEAKER) (test 1.47 K/ L 1.48-4.50 owao=291) MONOCYTES ABSOLUTE COUNT (BEAKER) (test 0.70 K/ L 0.00-1.30 lpbb=563) EOSINOPHILS ABSOLUTE COUNT (BEAKER) (test 0.09 K/ L 0.00-0.50 ovdr=818) BASOPHILS ABSOLUTE COUNT (BEAKER) (test 0.04 K/ L 0.00-0.20 lkly=945) 0.00TROPONIN [id number] 22:47:00 Test Item Value Reference Range Comments TROPONIN I (BEAKER) (test ktut=947) < ng/mL 0.00-0.03 Effective 02/09/2014: Reference Range [...] acidosis, acute neurological disease, and persistent tachyarrhythmia.POCT-GLUCOSE [id number] 21:47:00 Test Item Value Reference Range Comments POC-GLUCOSE METER (BEAKER) 183 mg/dL 70-110 TESTED AT [facility] [address] [facility] (test zsdy=8302) [facility] [address] CREATINE KINASE (CK), TOTAL AND [id number] 16:27:00 Test Item Value Reference Range Comments CREATINE KINASE TOTAL (BEAKER) (test bypk=944) 36 U/L 29-200 CREATINE KINASE-MB (BEAKER) (test mgwk=421) 1.4 ng/mL 0.0-6.6 CREATINE KINASE-MB INDEX (BEAKER) (test alou=421) 3.9 % Effective 02/09/2014: CK-MB Reference Range ChangeNew: 0.0-6.6 Previous: 0.0- 4.9CK-MB Reference Range:<6.7 Normal6.7-10.0 Borderline>10.0 AbnormalTROPONIN [id number] 16:27:00 Test Item Value Reference Range Comments TROPONIN I (RAJI) (test vqzy=006) < ng/mL 0.00-0.03 Effective 02/09/2014: Reference Range [...] acidosis, acute neurological disease, and persistent tachyarrhythmia.POCT-GLUCOSE [id number] 16:09:00 Test Item Value Reference Range Comments POC-GLUCOSE METER (RAJI) 95 mg/dL 70-110 TESTED AT [facility] [address] (test duqj=4132) [facility] [address]
[2018-09-03 18:22] LABS: Urine Blood NEGATIVE (NEG); Urine Glucose TRACE (NEG); Urine Protein 3+ (NEG); Urine Specific Gravity >1.030 (1.005-1.030)
--- NOTE | 2018-09-03 18:24 | RAD REPORT ---
EXAM DESCRIPTION: RAD - Chest Single View - 09/03/2018 6:06 pm CLINICAL HISTORY: Shortness of breath COMPARISON: CT chest August 15, 2018 TECHNIQUE: AP portable chest image was obtained 1804 hours . FINDINGS: Lung volumes are low. Bilateral pleural effusions are present with infiltrate and/ or atel ectasis in each lung base. Heart is obscured by the pleural fluid and lung parenchymal opacification. Upper lobe vasculature is prominent. No pneumothorax. No acute bony abnormality seen. No acute aorti c findings suspected. IMPRESSION: Bilateral pleural effusions with infiltrate and/ or atelectasis at each base. Lung markings and vasculature are prominent. CHF/ volume overload pattern is similar to the August 15 CT study. .
[2018-09-03 18:39] LABS: Urine Bacteria 20-50 /HPF (<20); Urine Culture Reflex Order REFLEXED; Urine RBC <5 /HPF (NONE SEEN)
[2018-09-03 18:58] LABS: Absolute Monocytes 0.4 K/uL (0.1-1.3); Absolute Neutrophil 3.8 K/uL (1.8-8.0); Basophils % 1.3 % (0-1.3); Eosinophils % 1.6 % (0-4.4); Hematocrit 26.1 % (36.0-45.0); Lymphocytes % 18.1 % (15.3-44.8); MPV 7.8 fL (7.6-11.3); Monocytes % 7.9 % (3.3-12.3); RBC Red Blood Cell Count 3.27 M/uL (3.86-4.86)
[2018-09-03 19:12] LABS: Albumin 3.1 g/dL (3.4-5.0); Phosphorus 6.6 mg/dL (2.5-4.9)
[2018-09-03 19:13] LABS: Potassium 5.9 mmol/L (3.5-5.1)
[2018-09-03] MEDS ORDERED: ALBUTEROL 2.5 MG/3 ML NEB SOL ONE (19:38)
[2018-09-03] MEDS ORDERED: INSULIN -REGULAR HUMAN 50 UNIT/0.5 ML ML ONE (19:38)
[2018-09-03] MEDS ORDERED: IPRATROPIUM BROM 0.5MG/2.5ML ONE (19:38)
[2018-09-03] MEDS ORDERED: CALCIUM GLUCONATE 1 GM IVPB 1 GM/50 ML BAG IV ONE (19:57)
[2018-09-03 20:15] LABS: Blood Morphology Comment NOT SEEN (NOT SEEN); Platelet Estimate ADEQ; Urine White Blood Cell Casts OK
--- NOTE | 2018-09-03 21:00 | ER ---
Nurse's Notes [facility] Name: Lisa Ko Age: 63 yrs Sex: Female : 1955 Arrival Date: 09/03/2018 Time: 16:54 Bed 15 Private MD: Diagnosis: Renal failure, Bilateral Plerual effusions, Hyperkalemia, S/p liver transplant Presentation: 09/03 16:54 Presenting complaint: Patient states: hx of liver transplant with kidney issues; "i was hj coming here for OP labs when i started having labored breathing, on triage, O2 sat is 86% on RA; denies fever and chills; hx of COPD;. Transition of care: patient was not received from another setting of care. Onset of symptoms was September 03, 2018. Risk Assessment: Do you want to hurt yourself or someone else? Patient reports no desire to harm self or others. Initial Sepsis Screen: Does the patient meet any 2 criteria? No. Patient's initial sepsis screen is negative. Does the patient have a suspected source of infection? No. Patient's initial sepsis screen is negative. Care prior to arrival: None. 16:54 Method Of Arrival: Ambulatory 16:54 Acuity: VANDA 2 Triage Assessment: 16:57 Respiratory: Reports shortness of breath labored breathing Onset: The symptoms/episode hj began/occurred today, the patient has severe shortness of breath. Historical: - Allergies: 16:56 Codeine; 16:56 Levaquin (rash); hj - Home Meds: 17:19 atorvastatin 40 mg oral tab 1 tab once daily [Active]; calcium carbonate 500 mg calcium ae4 (1,250 mg) Oral tab [Active]; metoprolol tartrate 100 mg Oral tab 1 tab 2 times per day [Active]; tramadol 50 mg Oral tab 1 tab twice a day [Active]; allopurinol 100 mg Oral tab [Active]; hydralazine 25 mg Oral tab [Active]; amlodipine 10 mg tab 1 tab once daily [Active]; tacrolimus 5 mg Oral cap every 12 hours [Active]; - PMHx: 16:56 Diabetes - IDDM; Hypertension; liver cancer; liver transplant; neuropathy; hj - PSHx: 16:56 liver transplant; hj - Social history:: Smoking status: Patient/guardian denies using tobacco, but has a distant history of tobacco abuse. - Ebola Screening: : No symptoms or risks identified at this time. Screenin:00 Abuse screen: Denies threats or abuse. Nutritional screening: No deficits noted. jb4 Tuberculosis screening: No symptoms or risk factors identified. Fall Risk IV access (20 points). Gait- Weak (10 pts.). Total Guerra Fall Scale indicates Low Risk Score (25-44 pts). Fall prevention measures have been instituted. Side Rails Up X 2 Placed close to Nursing Station Frequent Obs/Assesments occuring Family Present and informed to notify staff if they need to leave bedside. Assessment: 17:11 General: Appears in no apparent distress. uncomfortable, Behavior is cooperative, ae4 anxious. Pain: Denies pain. Neuro: Level of Consciousness is awake, alert, obeys commands, Oriented to person, place, time, situation, Appropriate for age. Cardiovascular: Heart tones S1 S2 present Patient's skin is warm and dry. Rhythm is regular. Respiratory: Airway is patent Respiratory effort is even, unlabored, shallow, Mildly labored. Breath sounds are diminished in right middle lobe, right lower lobe, right posterior middle lobe and right posterior lower lobe. Respiratory: Reports shortness of breath at rest. GI: No signs and/or symptoms were reported involving the gastrointestinal system. Patient currently denies diarrhea, nausea, vomiting. : No signs and/or symptoms were reported regarding the genitourinary system. EENT: Patient wears glasses. . Derm: Skin is pale. Musculoskeletal: No signs and/or symptoms reported regarding the musculoskeletal system. 18:08 Reassessment: Called outside lab via telephopne to verify urine creatinine label was ae4 received. Spoke to Vinnie Birmingham states label and urine were received. 19:00 Reassessment: Patient appears in no apparent distress at this time. Patient and/or ae4 family updated on plan of care and expected duration. Pain level reassessed. Daughter and are in exam room at bedside. Patient states symptoms have improved. 19:12 Reassessment: Received call from laboratory cureman named Tisha, for critical value of ae4 Potassium of 5.9. Provider notified of critical lab value. 21:46 Reassessment: Called report to receiving institution, spoke to marybeth Estrada nurse yoel and gave report. 22:44 Reassessment: Report and hand off care given to Thony VALLADARES. ae4 23:04 Reassessment: Patient appears in no apparent distress at this time. Patient and/or jb4 family updated on plan of care and expected duration. Pain level reassessed. Pt transported by EMS, no s/s of distress noted. Awake and alert, respirations even and unlabored. Family with the pt. Vital Signs: 16:53 Pulse Ox 86% on R/A; hj 16:53 BP 147 / 67; Pulse 73; Resp 26; Temp 98.9(TE); Pulse Ox 93% on 2 lpm NC; Weight 97.52 hj kg; Height 5 ft. 6 in. (167.64 cm); Pain 0/10; 17:28 BP 128 / 59; Pulse 71; Resp 21; Pulse Ox 95% on 2 lpm NC; ae4 18:24 BP 150 / 97; Pulse 70; Resp 20; Pulse Ox 94% on 2 lpm NC; ae4 21:02 BP 154 / 67; Pulse 78; Resp 15; Pulse Ox 93% on 2 lpm NC; ae4 23:00 Pulse 82; Resp 20; Pulse Ox 95% on 2 lpm NC; jb4 16:53 Body Mass Index 34.70 (97.52 kg, 167.64 cm) hj ED Course: 16:54 Patient arrived in ED. mr 16:55 Triage completed. hj 16:56 Arm band placed on right wrist. hj 16:58 Gonzalo Torre, JACQUELYN is Primary Nurse. ae4 17:12 Margaret Orr FNP-C [facility]. snw 17:12 Don Omer MD is Attending Physician. snw 17:12 EKG done, by supply tech. reviewed by Margaret KITCHEN. sm3 17:13 Adult w/ patient. manager monitoring on. Pulse ox on. NIBP on. Patient is sitting in ae4 wheelchair where she states she is more comfortable.. 18:07 Chest Single View XRAY In Process Unspecified. EDMS 18:24 Inserted saline lock: 22 gauge in left forearm, using aseptic technique. Blood ae4 collected. 23:10 No provider procedures requiring assistance completed. Patient transferred, IV remains jb4 in place. Administered Medications: 19:00 Drug: Insulin Regular Human 5 units {Co-Signature: jb4 (Arnold Michele RN).} Route: IVP; ae4 Site: left forearm; 21:36 Follow up: Response: No adverse reaction ae4 19:24 Drug: Albuterol - atroVENT (3:1) (2.5 mg - 0.5 mg) 3 ml Route: Nebulizer; ae4 21:35 Follow up: Response: Wheezing diminished; Other; SOB decreased.Patient appears more ae4 relaxed, 19:55 Drug: Calcium Gluconate 1 grams Route: IVPB; Infused Over: 60 mins; Site: left forearm; ae4 21:00 Follow up: IV Status: Completed infusion ae4 Intake: Outcome: 21:00 ER care complete, transfer ordered by . snw 23:10 Transferred by ground EMS by private ambulance to [facility], [facility], jb4 Transfer form completed. X-rays sent w/ patient. 23:10 Condition: stable 23:10 Discharge instructions given to patient, family, Instructed on the need for transfer, Demonstrated understanding of instructions. 23:16 Patient left the ED. jb4 Signatures: Dispatcher [employer] EDMS Margaret Orr, JUAREZ-C SLACKLINE OPERATOR-Csnw Daniella Padilla Samir Duong, RN RN Arnold Jenkins, RN RN jb4 Rahel Escobar [facility] Gonzalo Torre RN RN ae4 Arnold Bautista RN jb4 Corrections: (The following items were deleted from the chart) 16:56 16:54 Presenting complaint: Patient states: hx of liver transplant with kidney issues; "i was coming here for OP labs when i started having labore breathing, on triage, O2 sat is 86% on RA; denies fever and chills; hx of COPD; 23:24 23:04 Reassessment: Patient appears in no apparent distress at this time. Patient jb4 and/or family updated on plan of care and expected duration. Pain level reassessed. [facility] 23:25 Abuse screen: Denies threats or abuse. 4 [facility] 23:25 Nutritional screening: No deficits noted. 4 4 23:25 Tuberculosis screening: No symptoms or risk factors identified. 4 [facility] 23 23:25 Fall Risk IV access (20 points). Gait- Weak (10 pts.). Total Guerra Fall Scale jb4 indicates Low Risk Score (25-44 pts). Fall prevention measures have been instituted. Side Rails Up X 2 Placed close to Nursing Station Frequent Obs/Assesments occuring Family Present and informed to notify staff if they need to leave bedside jb4
--- NOTE | 2018-09-03 21:00 | EDPHYS ---
Physician Documentation [facility] Name: Lisa Ko Age: 63 yrs Sex: Female : 1955 Arrival Date: 09/03/2018 Time: 16:54 Bed 15 Private MD: ED Physician Don Omer HPI: 09/03 20:36 This 63 yrs old Female presents to ER via Ambulatory with complaints of snw Breathing Difficulty. 20:36 The patient has shortness of breath at rest. Onset: The symptoms/episode began/occurred snw suddenly. Duration: The symptoms are continuous, but are steadily getting better. Associated signs and symptoms: Pertinent positives: This patient does not have any pertinent positive signs or symptoms associated with shortness of breath. Severity of symptoms: At their worst the symptoms were moderate severe in the emergency department the symptoms have improved moderately. The patient has experienced a previous episode, last month. pt was going for outpatient labs and became short of breath. Historical: - Allergies: 16:56 Codeine; 16:56 Levaquin (rash); - Home Meds: 17:19 atorvastatin 40 mg oral tab 1 tab once daily [Active]; calcium carbonate 500 mg calcium ae4 (1,250 mg) Oral tab [Active]; metoprolol tartrate 100 mg Oral tab 1 tab 2 times per day [Active]; tramadol 50 mg Oral tab 1 tab twice a day [Active]; allopurinol 100 mg Oral tab [Active]; hydralazine 25 mg Oral tab [Active]; amlodipine 10 mg tab 1 tab once daily [Active]; tacrolimus 5 mg Oral cap every 12 hours [Active]; - PMHx: 16:56 Diabetes - IDDM; Hypertension; liver cancer; liver transplant; neuropathy; hj - PSHx: 16:56 liver transplant; hj - Social history:: Smoking status: Patient/guardian denies using tobacco, but has a distant history of tobacco abuse. - Ebola Screening: : No symptoms or risks identified at this time. ROS: 20:36 Constitutional: Negative for fever, chills, and weight loss, Eyes: Negative for injury, snw pain, redness, and discharge, ENT: Negative for injury, pain, and discharge, Neck: Negative for injury, pain, and swelling, Cardiovascular: Negative for chest pain, palpitations, and edema, Abdomen/GI: Negative for abdominal pain, nausea, vomiting, diarrhea, and constipation, Back: Negative for injury and pain, : Negative for injury, bleeding, discharge, and swelling, MS/Extremity: Negative for injury and deformity, Skin: Negative for injury, rash, and discoloration, Neuro: Negative for headache, weakness, numbness, tingling, and seizure. 20:36 Respiratory: Positive for shortness of breath, at rest. Exam: 20:34 Constitutional: This is a well developed, well nourished patient who is awake, alert, snw and in no acute distress. Head/Face: Normocephalic, atraumatic. 20:34 ENT: Nares patent. No nasal discharge, no septal abnormalities noted. Tympanic membranes are normal and external auditory canals are clear. Oropharynx with no redness, swelling, or masses, exudates, or evidence of obstruction, uvula midline. Mucous membranes moist. Neck: Trachea midline, no thyromegaly or masses palpated, and no cervical lymphadenopathy. Supple, full range of motion without nuchal rigidity, or vertebral point tenderness. No Meningismus. Chest/axilla: Normal chest wall appearance and motion. Nontender with no deformity. No lesions are appreciated. Cardiovascular: Regular rate and rhythm with a normal S1 and S2. No gallops, murmurs, or rubs. Normal PMI, no JVD. No pulse deficits. 20:34 Abdomen/GI: Soft, non-tender, with normal bowel sounds. No distension or tympany. No guarding or rebound. No evidence of tenderness throughout. Back: No spinal tenderness. No costovertebral tenderness. Full range of motion. 20:34 Neuro: Awake and alert, GCS 15, oriented to person, place, time, and situation. Cranial nerves II-XII grossly intact. Motor strength 5/5 in all extremities. Sensory grossly intact. Cerebellar exam normal. Normal gait. Psych: Awake, alert, with orientation to person, place and time. Behavior, mood, and affect are within normal limits. 20:34 Eyes: Periorbital structures: appear normal, Extraocular movements: no acute changes, Conjunctiva: pale, Corneas: are normal, Sclera: icterus, is present. 20:34 Respiratory: mild respiratory distress is noted, Respirations: prolonged exhalation, shallow respirations, Breath sounds: decreased breath sounds, that are moderate, are located in both bases. 20:34 Skin: Appearance: Color: jaundiced, Moisture: normal moisture. Vital Signs: 16:53 Pulse Ox 86% on R/A; hj 16:53 BP 147 / 67; Pulse 73; Resp 26; Temp 98.9(TE); Pulse Ox 93% on 2 lpm NC; Weight 97.52 hj kg; Height 5 ft. 6 in. (167.64 cm); Pain 0/10; 17:28 BP 128 / 59; Pulse 71; Resp 21; Pulse Ox 95% on 2 lpm NC; ae4 18:24 BP 150 / 97; Pulse 70; Resp 20; Pulse Ox 94% on 2 lpm NC; ae4 21:02 BP 154 / 67; Pulse 78; Resp 15; Pulse Ox 93% on 2 lpm NC; ae4 23:00 Pulse 82; Resp 20; Pulse Ox 95% on 2 lpm NC; jb4 16:53 Body Mass Index 34.70 (97.52 kg, 167.64 cm) hj MDM: 17:10 Data reviewed: vital signs, nurses notes, lab test result(s), EKG, radiologic studies. snw Data interpreted: Pulse oximetry: on room air is 85 %. Interpretation: hypoxia. Plan: O2 by NC applied. 17:12 Patient medically screened. snw 20:53 Data interpreted: Pulse oximetry: on 2L(s) per nasal canula, is 94 %. Interpretation: snw borderline. Counseling: I had a detailed discussion with the patient and/or guardian regarding: the historical points, exam findings, and any diagnostic results supporting the discharge/admit diagnosis, lab results, radiology results, the need to transfer to another facility, for higher level of care, [facility] does not immediately have the required specialist. Response to treatment: the patient's symptoms have mildly improved after treatment. Physician consultation: call taker [facility] was called at 20:56, was contacted at 20:56, regarding regarding transfer, to [facility]. 21:00 Counseling: I had a detailed discussion with the patient and/or guardian regarding: Dr. noemi Johnson kindly accepts pt in transfer. 22:54 ED course: lab contacted for repeat C7 results, they have not rec'd sample. noemi 09/03 17:47 Order name: Chem 7; Complete Time: 19:15 snw 09/03 17:47 Order name: CBC with Diff; Complete Time: 20:23 snw 09/03 17:47 Order name: Phosphorus; Complete Time: 19:15 snw 09/03 17:47 Order name: Albumin; Complete Time: 19:15 snw 09/03 17:47 Order name: TS; Complete Time: 19:33 snw 09/03 17:47 Order name: Urine Microscopic Only; Complete Time: 18:46 snw 09/03 17:47 Order name: Urine Creatinine; Complete Time: 18:46 snw 09/03 17:48 Order name: Chest Single View XRAY; Complete Time: 18:25 snw 09/03 18:11 Order name: Urine Dipstick--Ancillary (enter results); Complete Time: 18:23 bd 09/03 18:44 Order name: Urine Culture EDNY 09/03 20:15 Order name: CBC Smear Scan; Complete Time: 20:23 EDMS 09/03 22:22 Order name: ABO/RH no charge EDNY 09/03 17:02 Order name: EKG - Nurse/Tech; Complete Time: 17:02 hj 09/03 17:47 Order name: Urine Dipstick-Ancillary (obtain specimen); Complete Time: 18:24 snw 09/03 18:05 Order name: EKG Electrocardiogram; Complete Time: 18:07 EDMS Administered Medications: 19:00 Drug: Insulin Regular Human 5 units {Co-Signature: jb4 (Arnold Bautista RN).} Route: IVP; ae4 Site: left forearm; 21:36 Follow up: Response: No adverse reaction ae4 19:24 Drug: Albuterol - atroVENT (3:1) (2.5 mg - 0.5 mg) 3 ml Route: Nebulizer; ae4 21:35 Follow up: Response: Wheezing diminished; Other; SOB decreased.Patient appears more ae4 relaxed, 19:55 Drug: Calcium Gluconate 1 grams Route: IVPB; Infused Over: 60 mins; Site: left forearm; ae4 21:00 Follow up: IV Status: Completed infusion ae4 Disposition: 21:14 Critical Care:. snw Disposition: 09/03/18 21:[address] [facility]. Diagnosis is Renal failure, Bilateral Plerual effusions, Hyperkalemia, S/p liver transplant. - Reason for transfer: Higher level of care. - Accepting physician is Alex. - Condition is Stable. - Problem is an acute exacerbation. - Symptoms are unchanged. Critical care time excluding procedures: 21:14 Critical care time: Bedside Care: 10 minutes, Consultation: 15 minutes, Family snw Intervention: 5 minutes. Total time: 30 minutes Signatures: Dispatcher [employer] EDMS Margaret Orr, MILITARY SCIENCE TEACHER-C MILITARY SCIENCE TEACHER-Csnw Samir Duong, RN RN hj Arnold Bautista, RN RN jb4 Gonzalo Torre RN RN ae4 Arnold Bautista RN jb4 Corrections: (The following items were deleted from the chart) 23:16 21:00 09/03/2018 21:[address] [facility]. Diagnosis is jb4 Renal failure, Bilateral Plerual effusions, Hyperkalemia, S/p liver transplant. Reason for transfer: Higher level of care. Accepting physician is Alex. Condition is Stable. Problem is an acute exacerbation. Symptoms are unchanged. snw
--- NOTE | 2018-09-03 21:16 | EKG ---
Test Date: 2018-09-03 Test Time: 17:06:14 Marketing Associate: ROSY MEASUREMENT RESULTS: Intervals: Rate: 73 AR: 174 QRSD: 98 QT: 446 QTc: 491 Hortense: P: 69 AR: 174 QRS: 26 T: 93 INTERPRETIVE STATEMENTS: Normal sinus rhythm Low voltage QRS Cannot rule out Anterior infarct, age undetermined Abnormal ECG Compared to ECG 07/22/2017 19:29:51 Low QRS voltage now present Myocardial infarct finding now present Prolonged QT interval no longer present Electronically Signed On 09-03-18 21:15:04 CDT by Moshe Peña
== END 2018-09-03 23:16 | disposition short-term general hospital (02) ==
LOC: ER 16:50
DX: N19 Unspecified kidney failure (principal); J90 Pleural effusion, not elsewhere classified; E87.5 Hyperkalemia; I10 Essential (primary) hypertension; E11.9 Type 2 diabetes mellitus without complications; Z88.1 Allergy status to other antibiotic agents; Z88.5 Allergy status to narcotic agent; Z85.05 Personal history of malignant neoplasm of liver; Z94.4 Liver transplant status
CPT/HCPCS: 96365; 93005; 87088; 85025; 87086; 80048; 36415; 86900; 86850; 84100; 86901; 82040; 82570; 71045; 94640; 96375; 99285; J0610; 81003; 81015

== ENCOUNTER 2018-10-17 14:34 | Emergency (ER) | payer OTHER ==
--- OUTSIDE RECORDS SUMMARY | 2018-10-17 14:37 | XMS REPORT | Clinical Summary ---
:1955 Author Organization [facility] Address [address] [place] [address] Care Team Providers Name Role Phone Will [...] 100 unit/mL every morning. (3 mL) InPn ferrous sulfate 325 Take 1 tablet 180 tablet 0 09/12/2 09/11/ Active (65 FE) MG tablet (325 mg total) by 2019 mouth 2 (two) times daily. bumetanide (BUMEX) 1 One tab po bid on 40 tablet 0 Active MG tablet non dialysis days (Saturday, , Saturday and Saturday). tacrolimus (PROGRAF) 1 Take 3 capsules 540 capsule 4 Active MG capsule (3 mg total) by 019 mouth 2 (two) times daily. amLODIPine (NORVASC) 5 Take 5 mg by 0 08/23/ Discontinued MG tablet mouth daily . 2018 INSULIN Inject 35 Units 0 08/23/ Discontinued GLARGINE,HUM.REC.ANLOG subcutaneously 2019 (TOTHOMAS SOLOSTPATTY SUBQ) once at bedtime . hydroCHLOROthiazide Take [...] 2018 packet times daily for 3 days. tacrolimus (PROGRAF) 5 Take 1 capsule (5 0 08/24/2 09/12/ Discontinued MG capsule mg total) by 2018 mouth Daily (0600). tacrolimus (PROGRAF) 1 Take 4 capsules 0 08/23/2 09/12/ Discontinued MG capsule (4 mg total) by 2018 mouth Daily (1800). tacrolimus (PROGRAF) 1 Take 3 capsules 0 09/12/2 10/10/ Discontinued MG capsule (3 mg total) by 2018 mouth Daily (1800). tacrolimus (PROGRAF) 1 Take 3 capsules 0 09/12/2 10/10/ Discontinued MG capsule (3 mg total) by 2018 mouth Daily (0600). tacrolimus (PROGRAF) 1 Take 3 capsules 270 capsule 4 10/10/10/10/ Discontinued MG capsule (3 mg total) by 2018 mouth Daily (1800). tacrolimus (PROGRAF) 1 Take 3 capsules 540 capsule 4 10/10/2 10/13/ Discontinued MG capsule (3 mg total) by 2018 mouth 2 (two) times daily. Active Problems Problem Noted Date Pleural effusion 09/04/2018 Acute on chronic renal failure 09/04/2018 Normochromic normocytic anemia 09/04/2018 KRISTIAN (acute kidney injury) 08/17/2018 Chest pain [...] Encounters Date Type Specialty Care Team Description 10/14/2018 Telephone Transplant Shiela Weems, returning phone call Hepatology RN 10/14/2018 Telephone Transplant Shiela Weems, Medication Refill Hepatology RN 10/13/2018 Orders Only Transplant Shiela Weems, Hepatology RN 10/13/2018 Telephone Transplant Angi Acuña Labs Only (LVM ON BOTH Hepatology CONTACT #'S RE: LAB/RX RESULTS; NO MED CHANGES; REPEAT BLD WK X4 MTHS; 11/18/2018; LIVER CLINIC; GGT;) 10/10/2018 Orders Only Transplant Shiela Weems, Hepatology RN 09/30/2018 Documentation Transplant Angi Acuña Hepatology 09/16/2018 Documentation Transplant Angi Acuña Hepatology 09/16/2018 Orders Only Transplant Shiela Weems, Status post liver transplantation (HCC) (Primary Dx); Hepatology RN Hepatitis C virus infection without hepatic coma, unspecified chronicity; Complication of transplanted liver, unspecified complication (HCC); Disorder of magnesium metabolism; Encounter for long-term (current) use of high-risk medication; Encounter for therapeutic drug monitoring; Hepatocellular carcinoma (HCC) 09/16/2018 Telephone Transplant Shiela Weems, Hospital Follow Up Hepatology RN 09/04/2018 Hospital Encounter Transplant JaquelineAlice posadas Pleural effusion (Primary Dx); Eloy Gross MD Immunosuppression (HCC); 09/12/2018 Brann, Acute renal failure superimposed on stage 5 chronic kidney disease, not on chronic dialysis, unspecified acute renal failure type ( HCC) MD Ravi Mccormick Nejmudin Reshad, MD 09/04/2018 Travel 08/22/2018 Telephone Transplant Shiela Weems, dosing Hepatology RN 08/22/2018 Telephone Transplant Shiela Weems, neck band setter Hepatology RN 08/19/2018 Telephone Transplant Shiela Weems, neck band setter Hepatology RN 08/17/2018 Travel 08/16/2018 Hospital Encounter Transplant Pramod Crow KRISTIAN (acute kidney injury) (HCC); - Jarred RAMSEY MD Type 2 diabetes mellitus with diabetic polyneuropathy, with long-term current use of insulin (HCC); 08/23/2018 Kamryn Ryan, Microcytic anemia; Bilateral pleural effusion; Stage 3 chronic kidney disease (HCC); Immunosuppression (HCC); Liver replaced by transplant (HCC); HCC (hepatocellular carcinoma) (HCC) 08/15/2018 Telephone Transplant Shiela Weems, neck band setter Hepatology RN 07/02/2018 Telephone Transplant Shiela Weems, Medication Refill Hepatology RN 02/12/2018 Orders Only Transplant Shiela Weems, HCC (hepatocellular carcinoma) (HCC); Hepatology RN Liver replaced by transplant (HCC) after 10/16/2017 Immunizations Name Dates Previously Given Next Due [...] Vital Sign Reading Time Taken Blood Pressure 135/63 09/12/2018 2:28 PM CDT Pulse 89 09/12/2018 2:28 PM CDT Temperature 36.4 C (97.6 F) 09/12/2018 2:28 PM CDT Respiratory Rate 18 09/12/2018 2:28 PM CDT Oxygen Saturation 98% 09/12/2018 2:28 PM CDT Inhaled Oxygen Concentration - - Weight 90.5 kg (199 lb 8.3 oz) 09/12/2018 2:00 PM CDT Height 167.6 cm (5' 6") 09/04/2018 1:25 AM CDT Body Mass Index 32.2 09/12/2018 2:00 PM CDT Plan of Treatment Date Type Specialty Care Team Description 11/18/2018 Orders Only Transplant Hepatology 11/18/2018 Follow-Up Transplant Hepatology 11/18/2018 Appointment Radiology 11/18/2018 Appointment Implants Implanted Type Area Boat Puller Device Shelf Model / Identifier Expiration Serial / Date Lot Angio-Seal Vip Right: [employer] 10/22/2014 [id number] / Implanted: Qty: 1 on 02/16/2014 by Darío Shearer MD [employer] / [id number] Procedures Procedure Name Priority Date/Time Associated Comments Diagnosis RHYTHM STRIP - SCAN 09/15/2018 11:50 AM CDT REPORT OF PROCEDURE - 09/15/2018 11:50 ENDOSCOPY SCAN AM CDT POCT-GLUCOSE METER Routine 09/12/2018 2:26 Results for this PM CDT procedure are in the results section. POCT-GLUCOSE METER Routine 09/12/2018 11:38 Results for this AM CDT procedure are in the results section. POCT-GLUCOSE METER Routine 09/12/2018 7:02 Results for this AM CDT procedure are in the results section. TACROLIMUS LEVEL Routine 09/12/2018 5:51 Results for this AM CDT procedure are in the results section. BASIC METABOLIC PANEL Routine 09/12/2018 5:51 Results for this (7) AM CDT procedure are in the results section. HEPATIC FUNCTION PANEL Routine 09/12/2018 5:51 Results for this AM CDT procedure are in the results section. POCT-GLUCOSE METER Routine 09/11/2018 4:36 Results for this PM CDT procedure are in the results section. HEPATITIS B SURFACE Routine 09/11/2018 2:31 Results for this ANTIBODY PM CDT procedure are in the results section. POCT-GLUCOSE METER Routine 09/11/2018 11:53 Results for this AM CDT procedure are in the results section. POCT-GLUCOSE METER Routine 09/11/2018 7:36 Results for this AM CDT procedure are in the results section. TACROLIMUS LEVEL Routine 09/11/2018 5:09 Results for this AM CDT procedure are in the results section. BASIC METABOLIC PANEL Routine 09/11/2018 5:09 Results for this (7) AM CDT procedure are in the results section. HEPATIC FUNCTION PANEL Routine 09/11/2018 5:09 Results for this AM CDT procedure are in the results section. POCT-GLUCOSE METER Routine 09/10/2018 4:11 Results for this PM CDT procedure are in the results section. POCT-GLUCOSE METER Routine 09/10/2018 11:28 Results for this AM CDT procedure are in the results section. POCT-GLUCOSE METER Routine 09/10/2018 8:53 Results for this AM CDT procedure are in the results section. TACROLIMUS LEVEL Routine 09/10/2018 5:16 Results for this AM CDT procedure are in the results section. HEPATIC FUNCTION PANEL Routine 09/10/2018 5:16 Results for this AM CDT procedure are in the results section. POCT-GLUCOSE METER Routine 09/09/2018 10:12 Results for this PM CDT procedure are in the results section. POCT-GLUCOSE METER Routine 09/09/2018 4:31 Results for this PM CDT procedure are in the results section. HEMODIALYSIS INPATIENT Routine 09/09/2018 4:02 Results for this PM CDT procedure are in the results section. POCT-GLUCOSE METER Routine 09/09/2018 11:33 Results for this AM CDT procedure are in the results section. POCT-GLUCOSE METER Routine 09/09/2018 7:21 Results for this AM CDT procedure are in the results section. BASIC METABOLIC PANEL Routine 09/09/2018 5:34 Results for this (7) AM CDT procedure are in the results section. TACROLIMUS LEVEL Routine 09/09/2018 5:34 Results for this AM CDT procedure are in the results section. HEPATIC FUNCTION PANEL Routine 09/09/2018 5:34 Results for this AM CDT procedure are in the results section. POCT-GLUCOSE METER Routine 09/09/2018 12:55 Results for this AM CDT procedure are in the results section. HEMODIALYSIS INPATIENT Routine 09/08/2018 9:07 PM CDT POCT-GLUCOSE METER Routine 09/08/2018 4:49 Results for this PM CDT procedure are in the results section. POCT-GLUCOSE METER Routine 09/08/2018 11:27 Results for this AM CDT procedure are in the results section. IR TUNNELED DIALYSIS NATHAN 09/08/2018 8:52 Results for this CATHETER AM CDT procedure are in the results section. BASIC METABOLIC PANEL Routine 09/08/2018 6:43 Results for this (7) AM CDT procedure are in the results section. HEPATIC FUNCTION PANEL Routine 09/08/2018 6:43 Results for this AM CDT procedure are in the results section. CBC W/PLT COUNT & AUTO Routine 09/08/2018 5:09 Results for this DIFFERENTIAL AM CDT procedure are in the results section. TACROLIMUS LEVEL Routine 09/08/2018 5:09 Results for this AM CDT procedure are in the results section. T SPOT TB Routine 09/08/2018 5:09 Results for this AM CDT procedure are in the results section. CBC W/PLT COUNT & AUTO Routine 09/08/2018 5:09 Results for this DIFFERENTIAL AM CDT procedure are in the results section. POCT-GLUCOSE METER Routine 09/07/2018 9:55 Results for this PM CDT procedure are in the results section. POCT-GLUCOSE METER Routine 09/07/2018 4:48 Results for this PM CDT procedure are in the results section. POCT-GLUCOSE METER Routine 09/07/2018 12:18 Results for this PM CDT procedure are in the results section. POCT-GLUCOSE METER Routine 09/07/2018 8:07 Results for this AM CDT procedure are in the results section. CBC W/PLT COUNT & AUTO Routine 09/07/2018 5:24 Results for this DIFFERENTIAL AM CDT procedure are in the results section. TACROLIMUS LEVEL Routine 09/07/2018 5:24 Results for this AM CDT procedure are in the results section. BASIC METABOLIC PANEL Routine 09/07/2018 5:24 Results for this (7) AM CDT procedure are in the results section. CBC W/PLT COUNT & AUTO Routine 09/07/2018 5:24 Results for this DIFFERENTIAL AM CDT procedure are in the results section. HEPATIC FUNCTION PANEL Routine 09/07/2018 5:24 Results for this AM CDT procedure are in the results section. POCT-GLUCOSE METER Routine 09/06/2018 9:38 Results for this PM CDT procedure are in the results section. POCT-GLUCOSE METER Routine 09/06/2018 4:30 Results for this PM CDT procedure are in the results section. HEPATITIS C PCR, Routine 09/06/2018 1:15 Results for this QUANTITATIVE PM CDT procedure are in the results section. PT/APTT Routine 09/06/2018 1:15 Results for this PM CDT procedure are in the results section. HEPATITIS B CORE Routine 09/06/2018 1:15 Results for this ANTIBODY, TOTAL PM CDT procedure are in the results section. HEPATITIS PANEL, ACUTE Routine 09/06/2018 1:15 Results for this PM CDT procedure are in the results section. RETICULOCYTE COUNT Routine 09/06/2018 1:15 Results for this PM CDT procedure are in the results section. IRON, TIBC, % SAT. Routine 09/06/2018 1:15 Results for this (WITHOUT FERRITIN) PM CDT procedure are in the results section. FERRITIN Routine 09/06/2018 1:15 Results for this PM CDT procedure are in the results section. PTH, INTACT Routine 09/06/2018 1:15 Results for this PM CDT procedure are in the results section. TSH/FREE T4 IF Routine 09/06/2018 1:15 Results for this INDICATED PM CDT procedure are in the results section. POCT-GLUCOSE METER Routine 09/06/2018 11:34 Results for this AM CDT procedure are in the results section. POCT-GLUCOSE METER Routine 09/06/2018 7:33 Results for this AM CDT procedure are in the results section. CBC W/PLT COUNT & AUTO Routine 09/06/2018 6:03 Results for this DIFFERENTIAL AM CDT procedure are in the results section. TACROLIMUS LEVEL Routine 09/06/2018 6:03 Results for this AM CDT procedure are in the results section. CBC W/PLT COUNT & AUTO Routine 09/06/2018 6:03 Results for this DIFFERENTIAL AM CDT procedure are in the results section. HEPATIC FUNCTION PANEL Routine 09/06/2018 6:03 Results for this AM CDT procedure are in the results section. BASIC METABOLIC PANEL Routine 09/06/2018 6:03 Results for this (7) AM CDT procedure are in the results section. POCT-GLUCOSE METER Routine 09/05/2018 10:23 Results for this PM CDT procedure are in the results section. PERIPHERAL VASCULAR 09/05/2018 9:20 REPORT - SCAN PM CDT POCT-GLUCOSE METER Routine 09/05/2018 4:31 Results for this PM CDT procedure are in the results section. POCT-GLUCOSE METER Routine 09/05/2018 12:02 Results for this PM CDT procedure are in the results section. TACROLIMUS LEVEL Routine 09/05/2018 5:34 Results for this AM CDT procedure are in the results section. HEPATIC FUNCTION PANEL Routine 09/05/2018 5:34 Results for this AM CDT procedure are in the results section. BASIC METABOLIC PANEL Routine 09/05/2018 5:34 Results for this (7) AM CDT procedure are in the results section. POCT-GLUCOSE METER Routine 09/04/2018 10:17 Results for this PM CDT procedure are in the results section. VENOUS DOPPLER LEGS NATHAN 09/04/2018 9:25 Results for this BILATERAL PM CDT procedure are in the results section. CYTOLOGY AP Routine 09/04/2018 6:20 Results for this PM CDT procedure are in the results section. LACTATE DEHYDROGENASE Routine 09/04/2018 6:20 Results for this (LDH), BODY FLUID PM CDT procedure are in the results section. BODY FLUID CULTURE + Routine 09/04/2018 6:20 Results for this GRAM STAIN PM CDT procedure are in the results section. BODY FLUID CELL COUNT Routine 09/04/2018 6:20 Results for this WITH DIFFERENTIAL PM CDT procedure are in the results section. PH, BODY FLUID Routine 09/04/2018 6:20 Results for this PM CDT procedure are in the results section. PROTEIN, BODY FLUID Routine 09/04/2018 6:20 Results for this PM CDT procedure are in the results section. ALBUMIN, BODY FLUID Routine 09/04/2018 6:20 Results for this PM CDT procedure are in the results section. XR CHEST 1 VIEW STAT 09/04/2018 6:17 Results for this PORTABLE/BEDSIDE PM CDT procedure are in the results section. US THORACENTESIS Routine 09/04/2018 6:10 Results for this PM CDT procedure are in the results section. HEPATIC FUNCTION PANEL Routine 09/04/2018 1:16 Results for this PM CDT procedure are in the results section. POCT-GLUCOSE METER Routine 09/04/2018 11:10 Results for this AM CDT procedure are in the results section. POCT-GLUCOSE METER Routine 09/04/2018 8:51 Results for this AM CDT procedure are in the results section. XR CHEST 1 VIEW Routine 09/04/2018 6:22 Results for this PORTABLE/BEDSIDE AM CDT procedure are in the results section. CBC W/PLT COUNT & AUTO Routine 09/04/2018 5:22 Results for this DIFFERENTIAL AM CDT procedure are in the results section. TACROLIMUS LEVEL Routine 09/04/2018 5:22 Results for this AM CDT procedure are in the results section. PROTHROMBIN TIME/INR Routine 09/04/2018 5:22 Results for this AM CDT procedure are in the results section. CBC W/PLT COUNT & AUTO Routine 09/04/2018 5:22 Results for this DIFFERENTIAL AM CDT procedure are in the results section. BASIC METABOLIC PANEL Routine 09/04/2018 5:22 Results for this (7) AM CDT procedure are in the results section. POCT-GLUCOSE METER Routine 09/04/2018 1:16 Results for this AM CDT procedure are in the results section. RHYTHM STRIP - SCAN 08/25/2018 12:20 PM [...] procedure are in the results section. after 10/16/2017 Results RHYTHM STRIP - SCAN (09/15/2018 11:50 AM CDT)Only the most recent of2 resultswithin the time period is included. Narrative Performed At EKG-SCANNED (09/15/2018 11:50 AM CDT) Narrative Performed At POC-Glucose meter (09/12/2018 2:26 PM CDT)Only the most recent of61 resultswithin the time period is included. POC-Glucose Meter 89Comment: TESTED AT 70 - 110 mg/dL [facility] [address] [facility] [address] Specimen Blood Performing Organization Address City/State/[facility] Phone Number [facility] [address] [place] [address] CENTER Tacrolimus level (09/12/2018 5:51 AM CDT)Only the most recent of16 resultswithin the time period is included. Tacrolimus Lvl 5.7 (L) 10.0 - 20.0 ng/mL [facility] Specimen Blood Performing Organization Address City/[facility] Phone Number [facility] [address] [place] [phone] [place] Hepatic function panel (09/12/2018 5:51 AM CDT)Only the most recent of9 resultswithin the time period is included. Protein, Total 7.4 6.0 - 8.3 gm/dL [facility] Albumin 3.4 (L) 3.5 - 5.0 g/dL [facility] Total Bilirubin 1.1 0.2 - 1.2 mg/dL [facility] Bilirubin, Direct 0.5 0.1 - 0.5 mg/dL [facility] Alkaline Phosphatase 97 40 - 150 U/L [facility] AST 19 5 - 34 U/L [facility] ALT 15 6 - 55 U/L [facility] Specimen Blood Performing Organization Address City/[facility] Phone Number [facility] [address] [place] [address] CENTER Basic Metabolic Panel (09/12/2018 5:51 AM CDT)Only the most recent of9 resultswithin the time period is included. Sodium 131 (L) 136 - 145 meq/L [facility] Potassium 3.9 3.5 - 5.1 meq/L [facility] Chloride 96 (L) 98 - 107 meq/L [facility] CO2 29 22 - 29 meq/L [facility] BUN 28 (H) 7 - 21 mg/dL [facility] Creatinine 2.78 (H) 0.57 - 1.25 mg/dL [facility] Glucose 109 (H) 70 - 105 mg/dL [facility] Calcium 8.7 8.4 - 10.2 mg/dL [facility] EGFR 17Comment: ESTIMATED GFR IS mL/min/1.73 sq m [facility] NOT ACCURATE [facility]ININE [facility] CENTER CLEARANCE IN PREDICTING GLOMERULAR FILTRATION RATE. ESTIMATED GFR IS NOT APPLICABLE FOR DIALYSIS PATIENTS. Specimen Blood Performing Organization Address City/State/Zipcode Phone Number [address] [address] [place] Hepatitis B surface antibody (09/11/2018 2:31 PM CDT) Hep B S Ab <8.0 <8.0 mIU/mL [facility] Specimen Blood Performing Organization Address City/[facility]/Zipcode Phone Number [facility] [address] [place] [address] [place] HEMODIALYSIS INPATIENT (09/09/2018 4:02 PM CDT) Narrative Performed At Mariana Zhu RN 09/09/20184:03 PM Tolerated 3 hours of HD with net fluid removal of 2 liters.CVC exit site clean, no discharge noted. Dressing changed and labeled.Report given to Primary RN. Lab Results Component Value Date WBC 4.2 09/08/2018 HGB 7.5 (L) 09/08/2018 HCT 24.4 (L) 09/08/2018 MCV 81.1 09/08/2018 PLT 220 09/08/2018 Lab Results Component Value Date GLUCOSE 171 (H) 09/09/2018 CALCIUM 8.3 (L) 09/09/2018 NA 134 (L) 09/09/2018 K 4.1 09/09/2018 CO2 24 09/09/2018 CL 103 09/09/2018 BUN 46 (H) 09/09/2018 CREATININE 2.52 (H) 09/09/2018 Results for PAM KO ( ) as of 09/09/2018 16:03 Ref. Range 09/06/2018 13:15 Hepatitis B Surface Ag Latest Ref Range: NonreactiveNonreactive IR Tunneled Catheter Insertion (09/08/2018 8:52 AM CDT) Specimen Narrative Performed At FINAL REPORT [employer] Tunneled dialysis catheter insertion, 09/08/2018. History: Renal failure. Modality: Sonography and fluoroscopy. Sedation: Versed 1 mg and fentanyl 50 mcg was given intravenously for conscious sedation.Vital signs were monitored throughout the procedure by a nurse, and remained stable. Physician intra-service time was 20 min. [employer] Starcher:Yessenia. Sales Rep:None. Approach: Right internal jugular vein Estimated blood loss:< 5 cc. Specimen: None. Fluoroscopy Time: 0.7 min.Dose (Ka,r): 140 mGy. Technique: Informed written consent was obtained.Discussion of risks, benefits, and alternatives were made with the patient. The patient expressed understanding and agreed to proceed.All elements maximal sterile barrier technique was utilized for this procedure, including utilization of sterile scrub solution for skin prep, a large sterile sheet to cover the areas of the patient that were not prepped, and hand hygiene, mask, head covering, and sterile gown for performing radiologist and scrub technologist. The skin was anesthetized with 2% lidocaine.Ultrasound evaluation showed a patent and compressible right internal jugular vein, which was punctured under direct real-time ultrasound guidance with a micropuncture needle.An ultrasound image was saved to PACS. A 0.018 inch wire was placed through the needle into the right atrium. A 4 [place] micropuncture sheath was placed.A subcutaneous tunnel was created in the right anterior chest wall by blunt dissection.A 19 cm 15.5 [place] Duraflow 2 catheter was brought through the tunnel. The vessel tract was serially dilated over a J-wire. A peel-away sheath was placed in the right IJ vein and the catheter was advanced through the sheath, with its distal tip terminating in the right atrium.The peel-away sheath was removed. The ports were flushed and aspirated easily following placement.The catheter was sutured to the skin with 2-0 silk to secure its placement.The small jugular incision site was closed using resorbable suture. Vital signs were monitored throughout the procedure by a nurse, and remained stable.The patient tolerated the procedure well and left the department in the same condition.The patient was given 1 gram of Ancef intravenously during the procedure. Results:Spot radiograph of the chest demonstrates the new dialysis catheter to lie in the expected position with its tip overlying the superior right atrium. Impression: Successful, uncomplicated placement of a ] internal jugular tunneled dialysis catheter using sonographic and fluoroscopic guidance and conscious sedation. Signed: Alfredo Casas MD Report Verified Date/Time:09/08/2018 15:43:17 Reading Location: [facility] P048 Angio Body Reading Room Procedure Note Interface, External Ris In - 09/08/2018 3:45 PM CDT FINAL REPORT Tunneled dialysis catheter insertion, 09/08/2018. History: Renal failure. Modality: Sonography and fluoroscopy. Sedation: Versed 1 mg and fentanyl 50 mcg was given intravenously for conscious sedation. Vital signs were monitored throughout the procedure by a nurse, and remained stable. Physician intra-service time was 20 min. Artificial Flowers Starcher: Yessenia. Sales Rep: None. Approach: Right internal jugular vein Estimated blood loss: < 5 cc. Specimen: None. Fluoroscopy Time: 0.7 min. Dose (Ka,r): 140 mGy. Technique: Informed written consent was obtained. Discussion of risks, benefits, and alternatives were made with the patient. The patient expressed understanding and agreed to proceed. All elements maximal sterile barrier technique was utilized for this procedure, including utilization of sterile scrub solution for skin prep, a large sterile sheet to cover the areas of the patient that were not prepped, and hand hygiene, mask, head covering, and sterile gown for performing radiologist and scrub technologist. The skin was anesthetized with 2% lidocaine.Ultrasound evaluation showed a patent and compressible right internal jugular vein, which was punctured under direct real-time ultrasound guidance with a micropuncture needle. An ultrasound image was saved to PACS. A 0.018 inch wire was placed through the needle into the right atrium. A 4 [place] micropuncture sheath was placed. A subcutaneous tunnel was created in the right anterior chest wall by blunt dissection. A 19 cm 15.5 [place] Duraflow 2 catheter was brought through the tunnel. The vessel tract was serially dilated over a J-wire. A peel-away sheath was placed in the right IJ vein and the catheter was advanced through the sheath, with its distal tip terminating in the right atrium. The peel-away sheath was removed. The ports were flushed and aspirated easily following placement. The catheter was sutured to the skin with 2-0 silk to secure its placement. The small jugular incision site was closed using resorbable suture. Vital signs were monitored throughout the procedure by a nurse, and remained stable. The patient tolerated the procedure well and left the department in the same condition. The patient was given 1 gram of Ancef intravenously during the procedure. Results: Spot radiograph of the chest demonstrates the new dialysis catheter to lie in the expected position with its tip overlying the superior right atrium. Impression: Successful, uncomplicated placement of a ] internal jugular tunneled dialysis catheter using sonographic and fluoroscopic guidance and conscious sedation. Signed: Alfredo Casas MD Report Verified Date/Time: 09/08/2018 15:43:17 Reading Location: [place] [address] Angio Body Reading Room Performing Organization Address City/State/[facility] Phone Number [employer] T Spot TB (09/08/2018 5:09 AM CDT) T-Spot TB Negative [facility] Neg Ctrl Spot Count 0 [facility] Panel A Spot 0 [facility] Panel B Spot 3 [facility] Pos Ctrl Spot Ct 0 [facility] Scan Result [facility] Specimen Blood Narrative Performed At Performing Organization Address City/[facility] Phone Number [facility] [address] [place] [address] [facility] CBC with platelet count + automated diff (09/08/2018 5:09 AM CDT)Only the most recent of6 resultswithin the time period is included. WBC 4.2 3.5 - 10.5 K/L [facility] RBC 3.01 (L) 3.93 - 5.22 M/L [facility] Hemoglobin 7.5 (L) 11.2 - 15.7 GM/DL [facility] Hematocrit 24.4 (L) 34.1 - 44.9 % [facility] MCV 81.1 79.4 - 94.8 fL [facility] MCH 24.9 (L) 25.6 - 32.2 pg [facility] MCHC 30.7 (L) 32.2 - 35.5 GM/DL [facility] RDW 14.8 (H) 11.7 - 14.4 % [facility] Platelets 220 150 - 450 K/CU MM [facility] MPV 10.3 9.4 - 12.3 fL [facility] nRBC 0 0 - 0 /100 WBC [facility] % Neutros 52 % [facility] % Lymphs 32 % [facility] % Monos 11 % [facility] % Eos 4 % [facility] % Baso 1 % [facility] # Neutros 2.14 1.56 - 6.13 K/L [facility] # Lymphs 1.32 1.18 - 3.74 K/L [facility] # Monos 0.44 (H) 0.24 - 0.36 K/L [facility] # Eos 0.16 0.04 - 0.36 K/L [facility] # Baso 0.04 0.01 - 0.08 K/L [facility] Immature Granulocytes-Relative 1 0 - 1 % [facility] Specimen Blood Performing Organization Address City/State/Zipcode Phone Number [facility] [address] [place] [address] CENTER TSH/Free T4 If Indicated (09/06/2018 1:15 PM CDT) TSH 1.44 0.35 - 4.94 uIU/mL [facility] Specimen Blood Performing Organization Address City/[facility]/Zipcode Phone Number [address] [address] CENTER PT/aPTT (09/06/2018 1:15 PM CDT)Only the most recent of2 resultswithin the time period is included. Protime 14.7 (H) 11.9 - 14.2 seconds [facility] INR 1.2 <=5.9 [facility] PTT 35.3 22.5 - 36.0 seconds [facility] Specimen Blood Narrative Performed At Effective 08/20/2018: PT Reference Range [facility] Change New: 11.9-14.2Previous: 11.7-14.7 RECOMMENDED COUMADIN/WARFARIN INR THERAPY RANGES STANDARD DOSE: 2.0-3.0Includes: PROPHYLAXIS for venous thrombosis, systemic embolization; TREATMENT for venous thrombosis and/or pulmonary embolus. HIGH RISK: Target INR is 2.5-3.5 for patients wiht mechanical heart valves. Performing Organization Address [facility]code Phone Number [address] [address] [phone] CENTER Iron, TIBC, % sat. (without ferritin) (09/06/2018 1:15 PM CDT) Iron 24.0 (L) 40.0 - 160.0 ug/dL [facility] TIBC 308 250 - 450 ug/dL [facility] Iron % Saturation 8 (L) 20 - 55 % [facility] Specimen Blood Performing Organization Address [facility]/Zipcode Phone Number [address] [address] [place] Hepatitis panel, acute (09/06/2018 1:15 PM CDT)Only the most recent of2 resultswithin the time period is included. Hep A IgM Nonreactive Nonreactive [facility] Hep B C IgM Nonreactive Nonreactive [facility] Hepatitis C Ab Reactive (A) Nonreactive [facility] hepatitis B Surface Ag Nonreactive Nonreactive [facility] Specimen Blood Performing Organization Address City/[facility] Phone Number [address] [address] [place] Hepatitis B core antibody, total (09/06/2018 1:15 PM CDT)Only the most recent of2 resultswithin the time period is included. Hep B Core Total Ab Nonreactive Nonreactive [facility] Specimen Blood Performing Organization Address [facility] Phone Number [address] [address] [phone] [place] Hepatitis C PCR, Quantitative (09/06/2018 1:15 PM CDT) HCV PCR, Quantitative HCV RNA not detected HCV RNA not detected [facility] Specimen Blood Narrative Performed At This test uses a Real-Time Polymerase Chain [facility] Reaction (RT-PCR) methodology and was performed using LAZ Ampliprep/LAZ TaqMan HCV test kit version 2.0 ([employer]). Reportable range for this assay is 15 - 100,000,000 IU per mL (1.18 - 8.00 Log IU/mL). Performing Organization Address City/[facility] Phone Number [address] [address] CENTER Reticulocyte count (09/06/2018 1:15 PM CDT) % Retic 3.7 (H) 0.5 - 1.7 % [facility] Specimen Blood Performing Organization Address [facility]code Phone Number [address] [phone] CENTER PTH, intact (09/06/2018 1:15 PM CDT)Only the most recent of2 resultswithin the time period is included. PTH 311.0 (H) 8.5 - 72.5 pg/mL [facility] Specimen Blood Performing Organization Address City/[facility]/Zipcode Phone Number [facility] [address] [place] [address] CENTER Ferritin (09/06/2018 1:15 PM CDT) Ferritin 73 5 - 275 ng/mL [facility] Specimen Blood Performing Organization Address [facility]/Zipcode Phone Number [facility] [address] [place] [address] [place] PERIPHERAL VASCULAR REPORT - SCAN (09/05/2018 9:20 PM CDT) Narrative Performed At Venous doppler legs bilateral (09/04/2018 9:25 PM CDT) Ejection Fraction [facility] Specimen Impressions Performed At Right Impression [facility] 1. There is no deep venous obstruction in the common femoral, profunda femoral, femoral, popliteal or posterior tibial veins where visualized. 2. The peroneal veins are not visualized. 3. There is no superficial venous obstruction in the great saphenous vein where visualized. Left Impression 1. There is no deep venous obstruction in the common femoral, profunda femoral, femoral, popliteal or posterior tibial veins where visualized. 2. The peroneal veins are not visualized. 3. There is no superficial venous obstruction in the great saphenous vein where visualized. Conclusions Summary Venous duplex imaging and compression of the bilateral lower extremities were performed. The veins were technically difficult to visualize due to edema. The bilateral venous systems were patent and compressible with no evidence of thrombus where visualized. The venous Doppler waveforms were phasic with respiration . Signature Velocities are measured in cm/s ; Diameters are measured in cm Narrative Performed At LAB - Lower Extremities DVT Study [facility] Demographics Patient [place] of Study09/04/2018 MARCIN Age63 Visit [id number] Gender Female Date of Birth1955 Referring [facility] Room [id number] Physician RAVI Hay Farmer Ashley HigginsInterpreting Janna García MD Procedure Type of Study: Veins: Lower Extremities DVT Study, VENOUS DOPPLER LEG, BILATERAL. Indications for Study:Swelling. Patient Status:NATHAN. Study Location:Portable. Technical Quality:Technically Difficult. Risk Factors History of Disease + + +-------- + !Diagnosis !Date!Comments ! + + +-------- + !History/Risk Factors:!09/04/2018!Bilateral LE swelling! ! !!Fluid overload ! + + +-------- + Procedure Note Interface, External Ris In - 09/05/2018 8:49 AM CDT PV LAB - Lower Extremities DVT Study Demographics Patient Name PAM KO Date of Study 09/04/2018 MARCIN Age 63 Visit Number [id number] Gender Female Accession Number [id number] Date of 1955 Referring [facility] Room Number [id number] Physician RAVI Hay Farmer Ashley Higgins Interpreting Brittney Garcia, T Physician Procedure Type of Study: Veins: Lower Extremities DVT Study, VENOUS DOPPLER LEG, BILATERAL. Indications for Study:Swelling. Patient Status:NATHAN. Study Location:Portable. Technical Quality:Technically Difficult. Risk Factors History of Disease + + + + !Diagnosis !Date !Comments ! + + + + !History/Risk Factors: !09/04/2018!Bilateral LE swelling ! ! ! !Fluid overload ! + + + + Impressions Right Impression 1. There is no deep venous obstruction in the common femoral, profunda femoral, femoral, popliteal or posterior tibial veins where visualized. 2. The peroneal veins are not visualized. 3. There is no superficial venous obstruction in the great saphenous vein where visualized. Left Impression 1. There is no deep venous obstruction in the common femoral, profunda femoral, femoral, popliteal or posterior tibial veins where visualized. 2. The peroneal veins are not visualized. 3. There is no superficial venous obstruction in the great saphenous vein where visualized. Conclusions Summary Venous duplex imaging and compression of the bilateral lower extremities were performed. The veins were technically difficult to visualize due to edema. The bilateral venous systems were patent and compressible with no evidence of thrombus where visualized. The venous Doppler waveforms were phasic with respiration . Signature Velocities are measured in cm/s ; Diameters are measured in cm Performing Organization Address City/[facility] Phone Number [facility] pH, body fluid (09/04/2018 6:20 PM CDT)Only the most recent of2 resultswithin the time period is included. pH, Body Fluid 7.80 [facility] Specimen Body Fluid Performing Organization Address [facility]code Phone Number [facility] [address] [place] [address] [phone] [place] Body fluid culture + gram stain (09/04/2018 6:20 PM CDT)Only the most recent of2 resultswithin the time period is included. Result No growth [facility] Gram Stain Result <1+ WBCs [facility] Gram Stain Result No organisms seen [facility] Specimen Body Fluid Performing Organization Address [facility] Phone Number [facility] [address] [place] [address] [place] Body fluid cell count with differential (09/04/2018 6:20 PM CDT)Only the most recent of3 resultswithin the time period is included. Appearance Hazy (A) Clear [facility] Color Lis (A) Colorless, Straw [facility] RBCs 5,300 (H) <=1 /cu mm [facility] Adjusted WBC Count 634 (H) <=5 /cu mm [facility] Lining Cells 6 (H) <=1 /cu mm [facility] % Segs 17 % [facility] % Lymphs 59 % [facility] % Monos 24 % [facility] % Eos 0 % [facility] % Baso 0 % [facility] Container Body Fluid EDTA Tube [facility] Specimen Body Fluid Performing Organization Address City/State/Zipcode Phone Number [facility] [address] [place] [address] [phone] CENTER Protein, body fluid (09/04/2018 6:20 PM CDT)Only the most recent of3 resultswithin the time period is included. Protein, Fluid 2.5 Light's criteria identifies [facility] effusions if one or more are MEDICAL CENTER present: Pleural to serum protein ratio of more than 0.5; Pleural to Serum LDH of more than 0.6; Pleural LDH of more than two third of upper serum reference limit g/dL Specimen Body Fluid Narrative Performed At Absence of reference range indicates that [facility] normals have not been defined. Assay performance has not been validated for this type of specimen. Performing Organization Address City/[facility] Phone Number [facility] [address] [place] [address] [phone] CENTER Lactate dehydrogenase (LDH), body fluid (09/04/2018 6:20 PM CDT)Only the most recent of3 resultswithin the time period is included. LDH, Fluid <90 Light's criteria identifies [facility] MEDICAL effusions if one or more are CENTER present: Pleural to serum LDH ratio of more than 0.6. Pleural LDH more than two third of upper serum reference limit U/L Specimen Body Fluid Narrative Performed At Absence of reference range indicates that [facility] normals have not been defined. Assay performance has not been validated for this type of specimen. Performing Organization Address City/[facility]code Phone Number [facility] [address] [place] [address] CENTER Albumin, body fluid (09/04/2018 6:20 PM CDT)Only the most recent of2 resultswithin the time period is included. Albumin, Fluid 1.4 gm/dL [facility] Specimen Body Fluid Narrative Performed At Reference Range:No Normals [facility] Assay performance has not been validated for this type of specimen. Performing Organization Address City/State/[facility]code Phone Number [facility] [address] [place], [place] [address] [phone] CENTER Cytology (09/04/2018 6:20 PM CDT)Only the most recent of2 resultswithin the time period is included. Case Report Medical Cytology Report Case: [id number] [facility] Authorizing Provider:Wero Sharp MD Collected: 09/04/2018 [facility]0 [facility] Ordering Location: [address] Received: 09/05/2018 0846 Pathologist: Donnie Otoole MD Specimen:Pleural, Right DIAGNOSIS RIGHT PLEURAL FLUID (CYTOSPINS AND CELL BLOCK): [facility] - REACTIVE MESOTHELIAL CELLS IN A BACKGROUND OF CHRONIC INFLAMMATION [facility] Signing Pathologist Direct Phone Line: [phone] CPT Code(s) 39869, [address] [facility] CLINICAL DATA Right pleural effusion, [facility] history of hepatocellular [facility] cancer SPECIMEN SOURCE RIGHT PLEURAL FLUID [facility] GROSS DESCRIPTION 1100 mls orange; 4 cytospins, cell block [facility] Collected: [id number] [facility] Received: [id number] STATEMENT OF ADEQUACY Satisfactory [facility] Gross assessment was [facility] performed at [place], Department of [facility] Pathology, [address] [place] [phone], Technical component was [facility] performed at [place], Department [facility] Pathology, [address] [place] [address], Professional component was [facility] performed at [place], Department of [facility] Pathology, [address] [place] [phone], Specimen Body Fluid Narrative Performed At Performing Organization Address City/State/Zipcode Phone Number [address] [address] [phone] [place] XR chest 1 view portable / bedside (09/04/2018 6:17 PM CDT)Only the most recent of4 resultswithin the time period is included. Specimen Narrative Performed At FINAL REPORT [facility] EXAMINATION: AP PORTABLE CHEST RADIOGRAPH CLINICAL INDICATION: Pleural effusion. Right-sided thoracentesis. Evaluate for pneumothorax. IMPRESSION: Compared with 09/04/2018, 0622 hours. The right-sided pleural effusion persists but has decreased following the thoracentesis. No definite evidence of a large postprocedure pneumothorax. Evaluation for a small pneumothorax is limited by the AP portable semiupright technique. Cardiac enlargement, bibasilar lung opacities and bilateral pleural effusions are again noted concerning for congestive heart failure/fluid overload. The more confluent basilar lung consolidation may reflect associated passive atelectasis. Underlying pneumonia or mass lesion cannot be excluded. Signed: Maria Alejandra Doe MD Report Verified Date/Time:09/04/2018 19:14:07 Reading Location: [address] Room Procedure Note Interface, External Ris In - 09/04/2018 7:16 PM CDT FINAL REPORT EXAMINATION: AP PORTABLE CHEST RADIOGRAPH CLINICAL INDICATION: Pleural effusion. Right-sided thoracentesis. Evaluate for pneumothorax. IMPRESSION: Compared with 09/04/2018, 0622 hours. The right-sided pleural effusion persists but has decreased following the thoracentesis. No definite evidence of a large postprocedure pneumothorax. Evaluation for a small pneumothorax is limited by the AP portable semiupright technique. Cardiac enlargement, bibasilar lung opacities and bilateral pleural effusions are again noted concerning for congestive heart failure/fluid overload. The more confluent basilar lung consolidation may reflect associated passive atelectasis. Underlying pneumonia or mass lesion cannot be excluded. Signed: Maria Alejandra Doe MD Report Verified Date/Time: 09/04/2018 19:14:07 Reading Location: [address] Reading Room Performing Organization Address City/State/Zipcode Phone Number [employer] US thoracentesis (09/04/2018 6:10 PM CDT)Only the most recent of2 resultswithin the time period is included. Specimen Narrative Performed At FINAL REPORT [employer] Exam:Ultrasound guided thoracentesis Clinical History:Right sided pleural effusion Consent:Benefits and risks were explained to the patient who gave consent to the procedure. Complication:None immediate Procedure:The patient was placed in sittingposition. The right posterior chest was prepped and draped in usual sterile fashion. 2% lidocaine was used as local anesthetic. Under ultrasound guidance, a thoracentesis catheter was inserted into the pleural cavity. Approximately 1200 cc of serosanguineous pleural fluid was aspirated. The catheter was removed. The specimen was sent to the laboratory for further analysis. The patient tolerated the procedure well without any adverse reaction. A STAT chest x-ray was ordered. The patient left the department in stable condition. Impression:Ultrasound guided right sided thoracentesis. Procedure was performed by Liz Barnett PA-C under direct supervision of Dr. Al Phillips Signed: Al Phillips MD Report Verified Date/Time:09/09/2018 09:51:20 Reading Location: [facility] [id number] Reading Room Procedure Note Interface, External Ris In - 09/09/2018 9:53 AM CDT FINAL REPORT Exam: Ultrasound guided thoracentesis Clinical History: Right sided pleural effusion Consent: Benefits and risks were explained to the patient who gave consent to the procedure. Complication: None immediate Procedure: The patient was placed in sittingposition. The right posterior chest was prepped and draped in usual sterile fashion. 2% lidocaine was used as local anesthetic. Under ultrasound guidance, a thoracentesis catheter was inserted into the pleural cavity. Approximately 1200 cc of serosanguineous pleural fluid was aspirated. The catheter was removed. The specimen was sent to the laboratory for further analysis. The patient tolerated the procedure well without any adverse reaction. A STAT chest x-ray was ordered. The patient left the department in stable condition. Impression: Ultrasound guided right sided thoracentesis. Procedure was performed by Liz Barnett PA-C under direct supervision of Dr. Al Phillips Signed: Al Phillips MD Report Verified Date/Time: 09/09/2018 09:51:20 Reading Location: [address] Transitional Reading Room Performing Organization Address City/State/Zipcode Phone Number [facility] Prothrombin time/INR (09/04/2018 5:22 AM CDT) Protime 15.2 (H) 11.9 - 14.2 seconds [facility] INR 1.3 <=5.9 [facility] Specimen Blood Narrative Performed At Effective 08/20/2018: PT Reference Range [facility] Change New: 11.9-14.2Previous: 11.7-14.7 RECOMMENDED COUMADIN/WARFARIN INR THERAPY RANGES STANDARD DOSE: 2.0-3.0Includes: PROPHYLAXIS for venous thrombosis, systemic embolization; TREATMENT for venous thrombosis and/or pulmonary embolus. HIGH RISK: Target INR is 2.5-3.5 for patients wiht mechanical heart valves. Performing Organization Address City/State/Zipcode Phone Number [address] [address] [phone] [place] Potassium (08/23/2018 11:46 AM CDT) Potassium 5.2 (H) 3.5 - 5.1 meq/L [facility] Specimen Blood Performing Organization Address City/State/Zipcode Phone Number [facility] [address] [place] [address] [phone] [place] CBC (Hemogram only) (08/23/2018 6:32 AM CDT)Only the most recent of5 resultswithin the time period is included. WBC 4.0 3.5 - 10.5 K/L [facility] RBC 3.16 (L) 3.93 - 5.22 M/L [facility] Hemoglobin 7.9 (L) 11.2 - 15.7 GM/DL [facility] Hematocrit 25.6 (L) 34.1 - 44.9 % [facility] MCV 81.0 79.4 - 94.8 fL [facility] MCH 25.0 (L) 25.6 - 32.2 pg [facility] MCHC 30.9 (L) 32.2 - 35.5 GM/DL [facility] RDW 14.2 11.7 - 14.4 % [facility] Platelets 166 150 - 450 K/CU MM [facility] MPV 9.7 9.4 - 12.3 fL [facility] nRBC 0 0 - 0 /100 WBC [facility] Specimen Blood Performing Organization Address City/State/Zipcode Phone Number [facility] [address] [place] [address] [phone] [place] Comprehensive metabolic panel (08/23/2018 6:32 AM CDT)Only the most recent of6 resultswithin the time period is included. Protein, Total 6.6 6.0 - 8.3 gm/dL [facility] Albumin 3.0 (L) 3.5 - 5.0 g/dL [facility] Alkaline Phosphatase 88 40 - 150 U/L [facility] Total Bilirubin 0.8 0.2 - 1.2 mg/dL [facility] Sodium 136 136 - 145 meq/L [facility] Potassium 5.5 (H) 3.5 - 5.1 meq/L [facility] Chloride 108 (H) 98 - 107 meq/L [facility] CO2 24 22 - 29 meq/L [facility] BUN 51 (H) 7 - 21 mg/dL [facility] Creatinine 3.23 (H) 0.57 - 1.25 mg/dL [facility] Glucose 129 (H) 70 - 105 mg/dL [facility] Calcium 8.3 (L) 8.4 - 10.2 mg/dL [facility] AST 23 5 - 34 U/L [facility] ALT 24 6 - 55 U/L [facility] EGFR 14Comment: ESTIMATED GFR mL/min/1.[address] [facility] IS NOT ACCURATE [facility] CREATININE CLEARANCE IN PREDICTING GLOMERULAR FILTRATION RATE. ESTIMATED GFR IS NOT APPLICABLE FOR DIALYSIS PATIENTS. Specimen Blood Performing Organization Address City/State/Zipcode Phone Number [facility] [address] [place] [address] [phone] CENTER Creatinine clearance (08/22/2018 11:55 PM CDT) Creatinine Clearance 10.9 (L) 70.0 - 140.0 mL/min [facility] Volume, Urine 800 ml [facility] Creatinine, Ur 76.9 mg/dL [facility] Patient Height 167.0 cm [facility] Patient Weight 95.300 kg [facility] Specimen Urine Performing Organization Address City/[facility]/Zipcode Phone Number [address] [address] [place] Protein, 24 hour urine (08/22/2018 11:55 PM CDT) Protein, 24hr Urine 2,000 (H) 0 - 300 mg/24hr [facility] Volume, Urine 800 ml [facility] Protein, Urine 250 (H) 0 - 14 mg/dL [facility] Specimen Urine Performing Organization Address [facility] Phone Number [address] [address] [place] Urine Protein Electrophoresis, random (08/22/2018 12:05 AM CDT) Protein, Urine 240 (H) 0 - 14 mg/dL [facility] Albumin %, Urine 59.2 % [facility] Globulin %, Urine 40.8 % [facility] UPEP,ID Urine protein study consistent [facility] with glomerular dysfunction. [facility] There is a possible band present within the gamma region. Refer to serum immunofixation electrophoresis. Pathologist: Karie Butcher MD (electronic [facility] signature) [facility] Specimen Urine Performing Organization Address City/[facility] Phone Number [address] [address] [phone] [place] Urine Immunofixation, random (08/22/2018 12:05 AM CDT) Protein, Urine 240 (H) 0 - 14 mg/dL [facility] Albumin %, Urine 59.2 % [facility] Globulin %, Urine 40.8 % [facility] URINE TOMA ID Urine immunofixation [facility] electrophoresis reveals no [facility] monoclonal proteins or free light chains. Pathologist: Ian Morin M.D. (electonic [facility] Specimen Urine Performing Organization Address [facility] Phone Number [address] [address] CENTER HIV-1 Antigen with HIV-1/2 Antibody (08/21/2018 9:42 PM CDT) HIV-1 Antigen with HIV 1&2 Nonreactive Nonreactive [facility] Antibody [facility] Specimen Blood Performing Organization Address [facility] Phone Number [address] [address] C[place] Immunofixation electrophoresis (TOMA) (08/21/2018 9:42 PM CDT) IgG 1,790 540-1,822 mg/dL [facility] IgA 282 63 - 484 mg/dL [facility] IgM 52 22 - 293 mg/dL [facility] Serum TOMA Identification No monoclonal proteins [facility] detected. Polyclonal [facility] distribution of immunoglobulins. Pathologist: Ian Morin M.D. [facility] ([facility] signature) [facility] Specimen Blood Performing Organization Address [facility] Phone Number [address] [address] CENTER Complement Component C3 (08/21/2018 9:42 PM CDT) C3 Complement 81 (L) 82 - 193 mg/dL [facility] Specimen Blood Performing Organization Address City/[facility] Phone Number [address] [address] CENTER Complement Component C4 (08/21/2018 9:42 PM CDT) C4 Complement 21 15 - 57 mg/dL [facility] Specimen Blood Performing Organization Address City/[facility] Phone Number [address] [phone] CENTER Creatinine (08/21/2018 9:42 PM CDT) Creatinine 3.45 (H) 0.57 - 1.25 mg/dL [facility] EGFR 13Comment: ESTIMATED GFR IS mL/min/1.73 sq m [facility] NOT ACCURATE [facility] CENTER CLEARANCE IN PREDICTING GLOMERULAR FILTRATION RATE. ESTIMATED GFR IS NOT APPLICABLE FOR DIALYSIS PATIENTS. Specimen Blood Performing Organization Address [facility] Phone Number [address] [address] [phone] [place] Rheumatoid factor Ab, reflex to titer (08/21/2018 9:41 PM CDT) Rheumatoid Factor Negative [facility] Specimen Blood Performing Organization Address [facility] Phone Number [address] [address] [phone] CENTER RPR (08/21/2018 9:41 PM CDT) RPR Nonreactive Nonreactive [facility] Specimen Blood Performing Organization Address [facility] Phone Number [address] [address] [place] Anti-Neutrophil Cytoplasmic Ab (ANCA) (08/21/2018 9:41 PM CDT) Proteinase-3 Ab <1.0 <1.0 [facility] Comment: [facility] <1.0 AI No Antibody Detected > or=1.0 AI Antibody Detected Autoantibodies to proteinase-3 (DC-3) are accepted as characteristic for granulomatosis with polyangiitis (GPA, Praful's), and are detectable in 95% of the histologically proven cases. The cytoplasmic IFA pattern, (c-ANCA), is based largely on autoantibody to DC-3 which serves as the primary antigen. These [...] At Performing Lab [facility] [address] [place] [address] Eduin Ariza MD, PhD, JENNY Performing Organization Address [facility] Phone Number [employer] [address] [place] [address] Anti-Nuclear Antibody (WOODY) (08/21/2018 9:41 PM CDT) WOODY Negative Negative [facility] Specimen Blood Narrative Performed At Test performed by IFA method. [facility] Test performed by IFA method. Performing Organization Address City/[facility] Phone Number [facility] [address] [place] [address] CENTER Protein electrophoresis, serum (08/21/2018 9:41 PM CDT) Albumin Fraction 2.8 (L) 3.5 - 5.5 g/dL [facility] Alpha 1 Fraction 0.2 0.2 - 0.4 g/dL [facility] Alpha 2 Fraction 0.7 0.5 - 0.9 g/dL [facility] Beta Fraction 0.8 0.6 - 1.1 g/dL [facility] Gamma Globulin Fraction 1.7 0.7 - 1.7 g/dL [facility] Interpretation Albumin decreased. This [facility] may indicate protein [facility] malnutrition or a protein losing state. There is a possible restriction present within the gamma region. Please refer to serum immunofixation electrophoresis. Pathologist: Kraie Buthcer MD [facility] (electronic signature) [facility] Protein, Total 6.2 6.0 - 8.3 gm/dL [facility] Specimen Blood Performing Organization Address [facility] Phone Number [address] [address] [place] Uric acid (08/21/2018 6:59 PM CDT) Uric Acid 7.6 (H) 2.6 - 7.2 mg/dL [facility] Specimen Blood Performing Organization Address [facility] Phone Number [address] [address] [phone] [place] Osmolality, serum (08/21/2018 6:59 PM CDT) Osmolality Serum 307 (H) 280 - 303 mOsm/kg [facility] Specimen Blood Performing Organization Address [facility] Phone Number [facility] [address] [place] [address] [phone] Sodium, random urine (08/21/2018 6:45 PM CDT) Sodium Urine 48 meq/L [facility] Specimen Urine Narrative Performed At Reference Range: No Normals [facility] Performing Organization Address [facility] Phone Number [address] [address] [place] Protein, random urine (08/21/2018 6:45 PM CDT) Protein, Urine 265 (H) 0 - 14 mg/dL [facility] Specimen Urine Performing Organization Address [facility] Phone Number [address] [address] [place] Potassium, random urine (08/21/2018 6:45 PM CDT) Potassium Urine 14.7 meq/L [facility] Specimen Urine Narrative Performed At Reference Range: No Normals [facility] Performing Organization Address City/[facility]/Zipcode Phone Number [address] [address] [place] Osmolality, urine (08/21/2018 6:45 PM CDT) Osmolality, Ur 300 40-1,400 mOsm/kg [facility] Specimen Urine Performing Organization Address City/[facility] Phone Number [facility] [address] [place] [address] Creatinine, random urine (08/21/2018 6:45 PM CDT) Creatinine, Ur 84.6 mg/dL [facility] Specimen Urine Narrative Performed At Reference Range: No Normals [facility] Performing Organization Address [facility] Phone Number [address] [address] [place] Chloride, random urine (08/21/2018 6:45 PM CDT) ChlorideUr 29 meq/L [facility] Specimen Urine Narrative Performed At Reference Range: No Normals [facility] Performing Organization Address [facility] Phone Number [address] [address] [phone] [place] Eosinophil smear (08/21/2018 6:45 PM CDT) Eosinophil Smear No EOS seen No EOS seen [facility] Specimen Urine Narrative Performed At Many bacteria seen on stained smears. [facility] Performing Organization Address [facility] Phone Number [address] [address] [phone] CENTER Magnesium (08/21/2018 5:26 AM CDT)Only the most recent of2 resultswithin the time period is included. Magnesium 2.5 1.6 - 2.6 mg/dL [facility] Specimen Blood Performing Organization Address City/State/Zipcode Phone Number [facility] [address] [place] [address] [phone] C[facility] Triglycerides, body fluid (08/20/2018 5:53 PM CDT) Triglycerides, Fluid 32 mg/dL [facility] Specimen Body Fluid Narrative Performed At Reference Range:No Normals [facility] Assay performance has not been validated for this type of specimen. Performing Organization Address City/State/Zipcode Phone Number [place] [phone] [place] [address] [phone] [place] US abdomen limited (08/18/2018 11:25 PM CDT) Specimen Narrative Performed At FINAL REPORT [facility] INDICATION: history of liver transplant COMPARISON: None. [...] MD Report Verified Date/Time:08/19/2018 03:23:10 Reading Location: [facility] C0[facility] Transitional Reading Room Procedure [...] Report Verified Date/Time: 08/19/2018 03:23:10 Reading Location: [address] Transitional Reading Room Performing Organization Address City/State/Zipcode Phone Number [facility] ECHOCARDIOGRAM REPORT - SCAN (08/18/2018 9:20 PM CDT) Narrative Performed At XR chest 2 views (08/18/2018 1:32 PM CDT) Specimen Narrative Performed At FINAL REPORT [facility] INDICATION: bilateral effusions, dyspnea COMPARISON: March 07, [...] MD Report Verified Date/Time:08/18/2018 13:39:03 Reading Location: [facility] C013 Neuro Reading Room Procedure Note Interface, External [...] Report Verified Date/Time: 08/18/2018 13:39:03 Reading Location: [facility] C013V Neuro Reading Room Performing Organization Address City/State/Zipcode Phone Number [facility] Hemoglobin A1c (08/18/2018 5:24 AM CDT) Hemoglobin A1C 5.5 4.3 - 6.1 % [facility] Specimen Blood Performing Organization Address City/State/[place] [address] CENTER 2D Echo W/Doppler(CW/PW/Color) (08/17/2018 5:05 PM CDT) Ejection Fraction [facility] [place] [facility] Specimen Narrative Performed At Transthoracic Echocardiography Report (TTE) [facility] Demographics Patient [place] of Study08/17/2018 MARCIN Gender Female Visit [id number] Race Unknown [id number] Number Date of 1955 Tosin Stern Physician Age 63 year(s) SonographerAbed Vishal [...] Study 08/17/2018 MARCIN Gender Female Visit Number [id number] Race Unknown Room Number 2542 Number Date of 1955 Referring Tristin Stern Physician Age 63 year(s) Hay Farmer Abjame Winstonf Interpreting Pineda Sung Physician MD Fellow Aura Fitzpatrick MD Procedure Type of [...] Performing Organization Address City/State/Zipcode Phone Number [facility] CT chest without IV contrast (08/17/2018 3:45 PM CDT) Specimen Narrative Performed At FINAL REPORT [facility] INDICATION: Shortness of breath. COMPARISON: None. TECHNIQUE: [...] MD Report Verified Date/Time:08/17/2018 16:51:05 Reading Location: [facility] B1 C013Y CT Body Reading Room Procedure Note Interface, [...] Report Verified Date/Time: 08/17/2018 16:51:05 Reading Location: [facility] B1 C013Y CT Body Reading Room Performing Organization Address City/State/Zipcode Phone Number [facility] Urinalysis Microscopic Only (08/17/2018 2:03 PM CDT) RBC, UA <1 /HPF [facility] WBC, UA 1 /HPF [facility] Squam Epithel, UA 1 /HPF [facility] Specimen Urine Performing Organization Address City/[facility]/Zipcode Phone Number [address] [address] C[place] Urinalysis with Microscopic If Indicated (08/17/2018 2:03 PM CDT) Color, UA Light Yellow [facility] Clarity, UA Clear [facility] Specific [place], UA 1.008 1.001 - 1.035 [facility] pH, UA 6.5 5.0 - 8.0 [facility] Protein, UA 200 mg/dL (A) Negative [facility] Glucose, UA Negative Negative [facility] Ketones, UA Negative Negative [facility] Bilirubin, UA Negative Negative [facility] Blood, UA Negative Negative [facility] Nitrite, UA Negative Negative [facility] Leukocytes, UA Negative Negative [facility] Urobilinogen, UA 0.2 0.2 - 1.0 mg/dL [facility] Specimen Source [facility] Specimen Urine Performing Organization Address City/[facility] Phone Number [facility] [address] [place] [address] [phone] CENTER B-type Natriuretic Factor (BNP) (08/17/2018 2:02 PM CDT)Only the most recent of2 resultswithin the time period is included. BNP 549 (H) 0 - 100 pg/mL [facility] Specimen Blood Performing Organization Address City/[facility] Phone Number [facility] [address] [place] [address] CENTER after 10/16/2017 Insurance Payer Benefit Plan / Group Subscriber ID Type Phone Address [employer] - MEDICARE UNITED MED[employer]ARE HMO xxxxxxxxx MGD CARE Advance Directives For more information, please contact:[address], [place] [phone] Code Status Date Activated Date Inactivated Comments Full Code 09/04/2018 12:17 AM 09/12/2018 6:16 PM This code status was determined by: Patient Full Code 08/17/2018 12:21 AM 08/23/2018 7:37 [...]
--- OUTSIDE RECORDS SUMMARY | 2018-10-17 14:40 | XMS REPORT ---
:1955 [facility] [address] [place] [address] Care Team Providers Name Role Phone CHIRAG GARCIA Unavailable Unavailable PALMA RODRIGUES Unavailable Unavailable SHERLY DOUGLAS Unavailable Unavailable ALLIE RAMIREZ Unavailable Unavailable Problems This patient has no known problems. Allergies, Adverse Reactions, Alerts This patient has no known allergies or adverse reactions. Medications This patient has no known medications. Results Test Description Test Time Test Comments Text Results Atomic Results Result Comments POCT-GLUCOSE METER 2018-09-12 14:28:00 Test Item Value Reference Range Comments POC-GLUCOSE METER (BEAKER) (test 89 mg/dL 70-110 TESTED AT [address] wojr=3683) [place] [address] POCT-GLUCOSE [id number] 11:40:00 Test Item Value Reference Range Comments POC-GLUCOSE METER (BEAKER) 131 mg/dL 70-110 TESTED AT [address] (test cwrq=5422) [place] [address] TACROLIMUS [id number] 09:35:00 Test Item Value Reference Range Comments TACROLIMUS BLOOD (BEAKER) (test sbmq=489) 5.7 ng/mL 10.0-20.0 POCT-GLUCOSE [id number] 07:27:00 Test Item Value Reference Range Comments POC-GLUCOSE METER (BEAKER) 101 mg/dL 70-110 TESTED AT [address] (test psby=2389) [place] [address] BASIC METABOLIC [id number] 06:57:00 Test Item Value Reference Range Comments SODIUM (BEAKER) (test 131 meq/L 136-145 jcac=000) POTASSIUM (BEAKER) (test 3.9 meq/L 3.5-5.1 gdlu=724) CHLORIDE (BEAKER) (test 96 meq/L 98-107 mucl=245) CO2 (BEAKER) (test 29 meq/L 22-29 exrt=101) BLOOD UREA NITROGEN 28 mg/dL 7-21 (BEAKER) (test lnil=834) CREATININE (BEAKER) (test 2.78 mg/dL 0.57-1.25 mfsc=965) GLUCOSE RANDOM (BEAKER) 109 mg/dL 70-105 (test xunw=158) CALCIUM (BEAKER) (test 8.7 mg/dL 8.4-10.2 ljwf=258) EGFR (BEAKER) (test 17 mL/min/1.73 sq m ESTIMATED GFR IS NOT fzrt=8577) ACCURATE CREATININE CLEARANCE IN PREDICTING GLOMERULAR FILTRATION RATE. ESTIMATED GFR IS NOT APPLICABLE FOR DIALYSIS PATIENTS. HEPATIC FUNCTION [id number] 06:56:00 Test Item Value Reference Range Comments TOTAL PROTEIN (BEAKER) (test phmy=882) 7.4 gm/dL 6.0-8.3 ALBUMIN (BEAKER) (test rgom=8331) 3.4 g/dL 3.5-5.0 BILIRUBIN TOTAL (BEAKER) (test ijxz=960) 1.1 mg/dL 0.2-1.2 BILIRUBIN DIRECT (BEAKER) (test rrsi=869) 0.5 mg/dL 0.1-0.5 ALKALINE PHOSPHATASE (BEAKER) (test divf=843) 97 U/L 40-150 AST (SGOT) (BEAKER) (test prwb=133) 19 U/L 5-34 ALT (SGPT) (BEAKER) (test phdh=166) 15 U/L 6-55 POCT-GLUCOSE [id number] 16:39:00 Test Item Value Reference Range Comments POC-GLUCOSE METER (BEAKER) 149 mg/dL 70-110 TESTED AT [facility] [address] (test ukbx=4283) [facility] [address] HEPATITIS B SURFACE [id number] 15:26:00 Test Item Value Reference Range Comments HEPATITIS B SURFACE ANTIBODY (BEAKER) (test < mIU/mL <8.0 hchj=688) POCT-GLUCOSE [id number] 12:22:00 Test Item Value Reference Range Comments POC-GLUCOSE METER (BEAKER) 141 mg/dL 70-110 TESTED AT [facility] [address] [facility] (test zhid=3246) [facility] [address] TACROLIMUS [id number] 09:43:00 Test Item Value Reference Range Comments TACROLIMUS BLOOD (BEAKER) (test hads=992) 5.5 ng/mL 10.0-20.0 POCT-GLUCOSE [id number] 07:48:00 Test Item Value Reference Range Comments POC-GLUCOSE METER (BEAKER) 135 mg/dL 70-110 TESTED AT [address] (test muvm=1828) [facility] [address] BASIC METABOLIC [id number] 07:00:00 Test Item Value Reference Range Comments SODIUM (BEAKER) (test 135 meq/L 136-145 kebb=450) POTASSIUM (BEAKER) (test 3.7 meq/L 3.5-5.1 dtgd=601) CHLORIDE (BEAKER) (test 101 meq/L 98-107 ccqd=061) CO2 (BEAKER) (test 28 meq/L 22-29 euzf=132) BLOOD UREA NITROGEN 20 mg/dL 7-21 (BEAKER) (test xfyt=176) CREATININE (BEAKER) (test 2.38 mg/dL 0.57-1.25 wrba=053) GLUCOSE RANDOM (BEAKER) 107 mg/dL 70-105 (test chmz=344) CALCIUM (BEAKER) (test 8.3 mg/dL 8.4-10.2 tecm=822) EGFR (BEAKER) (test 20 mL/min/1.73 sq m ESTIMATED GFR IS NOT nzzc=2003) ACCURATE CREATININE CLEARANCE IN PREDICTING GLOMERULAR FILTRATION RATE. ESTIMATED GFR IS NOT APPLICABLE FOR DIALYSIS PATIENTS. HEPATIC FUNCTION [id number] 06:54:00 Test Item Value Reference Range Comments TOTAL PROTEIN (BEAKER) (test mwpb=968) 6.5 gm/dL 6.0-8.3 ALBUMIN (BEAKER) (test xpbk=8937) 2.9 g/dL 3.5-5.0 BILIRUBIN TOTAL (BEAKER) (test wdge=677) 0.9 mg/dL 0.2-1.2 BILIRUBIN DIRECT (BEAKER) (test vler=407) 0.5 mg/dL 0.1-0.5 ALKALINE PHOSPHATASE (BEAKER) (test roku=946) 82 U/L 40-150 AST (SGOT) (BEAKER) (test dozd=873) 21 U/L 5-34 ALT (SGPT) (BEAKER) (test eicl=156) 15 U/L 6-55 POCT-GLUCOSE [id number] 16:29:00 Test Item Value Reference Range Comments POC-GLUCOSE METER (BEAKER) 167 mg/dL 70-110 TESTED AT [address] (test cxjo=6362) [place] [id number] POCT-GLUCOSE [id number] 12:30:00 Test Item Value Reference Range Comments POC-GLUCOSE METER (BEAKER) 116 mg/dL 70-110 TESTED AT [address] (test gvhj=1461) [place] [id number] TACROLIMUS [id number] 11:11:00 Test Item Value Reference Range Comments TACROLIMUS BLOOD ([facility]) (test qfrk=897) 4.3 ng/mL 10.0-20.0 HEPATITIS C PCR, [id number] 09:05:00 Test Item Value Reference Range Comments HCV RESULT COMPONENT ([facility]) HCV RNA not detected HCV RNA not detected (test hegi=9420) This test uses a Real-Time Polymerase Chain Reaction (RT-PCR) methodology and was performed using LAZ Ampliprep/LAZ TaqMan HCV test kit version 2.0 ( [employer]).Reportable range for this assay is 15 - 100,000, 000 IU per mL (1.18 - 8.00 Log IU/mL).POCT-GLUCOSE [id number] 08:55:00 Test Item Value Reference Range Comments POC-GLUCOSE METER ([facility]) 114 mg/dL 70-110 TESTED AT [address] (test xedu=4656) [place] [id number] HEPATIC FUNCTION [id number] 06:29:00 Test Item Value Reference Range Comments TOTAL PROTEIN (BEAKER) (test vdpi=903) 6.5 gm/dL 6.0-8.3 ALBUMIN (BEAKER) (test ixqk=8441) 3.0 g/dL 3.5-5.0 BILIRUBIN TOTAL (BEAKER) (test lrzs=106) 0.8 mg/dL 0.2-1.2 BILIRUBIN DIRECT (BEAKER) (test oodm=396) 0.5 mg/dL 0.1-0.5 ALKALINE PHOSPHATASE (AKER) (test xlyc=008) 86 U/L 40-150 AST (SGOT) (BEAKER) (test nifi=043) 14 U/L 5-34 ALT (SGPT) (BEAKER) (test joge=790) 11 U/L 6-55 POCT-GLUCOSE [id number] 22:27:00 Test Item Value Reference Range Comments POC-GLUCOSE METER (BEAKER) 272 mg/dL 70-110 TESTED AT [address] (test lklz=3898) [facility] [address] POCT-GLUCOSE [id number] 16:45:00 Test Item Value Reference Range Comments POC-GLUCOSE METER (AKER) 108 mg/dL 70-110 TESTED AT [address] (test pqla=2076) [facility] [address] POCT-GLUCOSE [id number] 11:54:00 Test Item Value Reference Range Comments POC-GLUCOSE METER ([facility]) 153 mg/dL 70-110 TESTED AT [address] (test pwbh=3598) [facility] [address] TACROLIMUS [id number] 09:55:00 Test Item Value Reference Range Comments TACROLIMUS BLOOD ([facility]) (test yirs=330) 5.5 ng/mL 10.0-20.0 U/S, [id number] 09:51:00Laterality?->RightReason for exam:-> dyspneaFINAL REPORT Exam: Ultrasound guided thoracentesis Clinical History: Right sided pleural effusion Consent: Benefits and risks were explained to the patient who gave consent tothe procedure. Complication: None immediate Procedure: The patient was placed in sittingposition. The right posterior chest was prepped and draped in usual sterile fashion. 2% lidocaine was used as local anesthetic. Under ultrasound guidance, a thoracentesis catheter was inserted into the pleural cavity. Approximately 1200 cc of serosanguineous pleural fluid was aspirated. The catheter was removed.The specimen was sent to the laboratory for further analysis. The patient tolerated the procedure well without any adverse reaction. A STAT chest x-ray was ordered. The patient left the department in stable condition. Impression: Ultrasound guided right sided thoracentesis. Procedure was performed byLiz Barnett PA-C under direct supervision of Dr. Al Phillips Signed: Al Phillips MDReport Verified Date/Time: 09/09/2018 09: 51:20 Reading Location: [facility] C0[facility] Transitional Reading Room BASIC METABOLIC [id number] 08:37:00 Test Item Value Reference Range Comments SODIUM (BEAKER) (test 134 meq/L 136-145 ziyy=592) POTASSIUM (BEAKER) (test 4.1 meq/L 3.5-5.1 dtua=796) CHLORIDE (BEAKER) (test 103 meq/L 98-107 acak=492) CO2 (BEAKER) (test 24 meq/L 22-29 lxbt=682) BLOOD UREA NITROGEN 46 mg/dL 7-21 (BEAKER) (test qyqk=087) CREATININE (BEAKER) (test 2.52 mg/dL 0.57-1.25 nrem=109) GLUCOSE RANDOM (BEAKER) 171 mg/dL 70-105 (test sbbx=503) CALCIUM (BEAKER) (test 8.3 mg/dL 8.4-10.2 utsq=428) EGFR (BEAKER) (test 19 mL/min/1.73 sq m ESTIMATED GFR IS NOT roqm=6038) ACCURATE CREATININE CLEARANCE IN PREDICTING GLOMERULAR FILTRATION RATE. ESTIMATED GFR IS NOT APPLICABLE FOR DIALYSIS PATIENTS. POCT-GLUCOSE [id number] 07:33:00 Test Item Value Reference Range Comments POC-GLUCOSE METER (BEAKER) 175 mg/dL 70-110 TESTED AT [facility] [address] [facility] (test apxa=0280) [facility] [address] HEPATIC FUNCTION [id number] 06:51:00 Test Item Value Reference Range Comments TOTAL PROTEIN (BEAKER) (test rhyo=688) 6.5 gm/dL 6.0-8.3 ALBUMIN (BEAKER) (test uedh=1155) 3.0 g/dL 3.5-5.0 BILIRUBIN TOTAL (BEAKER) (test yjqh=577) 0.8 mg/dL 0.2-1.2 BILIRUBIN DIRECT (BEAKER) (test wqtp=293) 0.5 mg/dL 0.1-0.5 ALKALINE PHOSPHATASE (BEAKER) (test evql=614) 94 U/L 40-150 AST (SGOT) (BEAKER) (test lols=988) 13 U/L 5-34 ALT (SGPT) (BEAKER) (test bqlk=641) 10 U/L 6-55 POCT-GLUCOSE [id number] 01:03:00 Test Item Value Reference Range Comments POC-GLUCOSE METER (RAJI) 207 mg/dL 70-110 TESTED AT [facility] [address] [facility] (test ogbq=7895) [facility] [address] POCT-GLUCOSE [id number] 16:52:00 Test Item Value Reference Range Comments POC-GLUCOSE METER (RAJI) 296 mg/dL 70-110 TESTED AT [address] (test azvn=2455) [facility] [address] ANG, TUNNELED CATHETER [id number] 15:43:00Tunneled dialysis catheter placement, may be done carmen, hopefully no later than Saturday.Reason for exam:->Initiation on HD.FINAL REPORT Tunneled dialysis catheter insertion, 09/08/2018. History: Renal failure. Modality: Sonography and fluoroscopy. Sedation: Versed 1 mg and fentanyl 50 mcg was given intravenously for conscious sedation. Vital signs were monitored throughout the procedure by a nurse, and remained stable. Physician intra- service time was 20 min. Brake Repair Supervisor: Yessenia. Veterinary Technician: None. Approach: Right internal jugular vein Estimated [...] to PACS. A 0.018 inch wire was placedthrough the needle into the right atrium. A 4 Italian micropuncture sheath was placed. A subcutaneous tunnel was created in the right anterior chest wall by blunt dissection. A 19 cm 15.5 Italian Duraflow 2 catheter was brought through the tunnel. The vessel tract was serially dilated over a J-wire. Apeel-away sheath was placed in the right IJ vein and the catheter was advanced through the sheath, with its distal tip terminating in the right atrium. The peel-away sheath was removed. The ports wereflushed and aspirated easily following placement. The catheter was sutured to the skin with 2-0 silk to secure its placement. The small jugular incision site was closed using resorbable suture. Vitalsigns were monitored throughout the procedure by a nurse, and remained stable. The patient tolerated the procedure well and left the department in the same condition. The patient was given 1 gram of Ancef intravenously during the procedure. Results: Spot radiograph of the chest demonstrates the newdialysis catheter to lie in the expected position with its tip overlying the superior right atrium. Impression: Successful , uncomplicated placement of a ] internal jugular tunneled dialysis catheter using sonographic and fluoroscopic guidance and conscious sedation. Signed : Alfredo Casaseport Verified Date/Time: 09/08/2018 15:43:17 Reading Location: [place] [address] Angio Body Reading Room [id number] 11:56:00Medical Cytology Report Case: [id number] Authorizing Provider: Wero Sharp MD Collected: 09/04/2018 1820 Ordering Location: [address] Received: 09/05/2018 0846 Pathologist: Donnie Otoole MD Specimen: Pleural, Right RIGHT PLEURAL FLUID (CYTOSPINS AND CELL BLOCK): - REACTIVE MESOTHELIAL CELLS IN A BACKGROUND OF CHRONIC INFLAMMATION Signing Pathologist Direct Phone Line: [phone] signed by Donnie Otoole MD on 2018 at 11:56 [id number], [id number] pleural effusion, history of hepatocellular cancerRIGHT PLEURAL [id number] mls orange; 4 cytospins, cell blockCollected: [id number]: [id number] [facility] [place], [facility], [address] [place] [address], [place] [address], Rzzcdj [facility], Department of Pathology, [address] [place] [address], [facility], Department of Pathology, [address] [place] [address], SRTZ-GLUCOSE [id number] 11:51:00 Test Item Value Reference Range Comments POC-GLUCOSE METER (BEAKER) 166 mg/dL 70-110 TESTED AT [address] (test iaen=8276) [facility] [address] TACROLIMUS [id number] 11:01:00 Test Item Value Reference Range Comments TACROLIMUS BLOOD (BEAKER) (test eqlf=189) 7.3 ng/mL 10.0-20.0 BASIC METABOLIC [id number] 07:58:00 Test Item Value Reference Range Comments SODIUM (BEAKER) (test 131 meq/L 136-145 sigj=414) POTASSIUM (BEAKER) (test 4.7 meq/L 3.5-5.1 zpve=371) CHLORIDE (BEAKER) (test 103 meq/L 98-107 pvly=577) CO2 (BEAKER) (test 20 meq/L 22-29 rnxk=947) BLOOD UREA NITROGEN 74 mg/dL 7-21 (BEAKER) (test oedm=772) CREATININE (BEAKER) (test 3.53 mg/dL 0.57-1.25 klty=834) GLUCOSE RANDOM (BEAKER) 88 mg/dL 70-105 (test bgdu=844) CALCIUM (BEAKER) (test 8.2 mg/dL 8.4-10.2 ejki=713) EGFR (BEAKER) (test 13 mL/min/1.73 sq m ESTIMATED GFR IS NOT idce=3898) ACCURATE CREATININE CLEARANCE IN PREDICTING GLOMERULAR FILTRATION RATE. ESTIMATED GFR IS NOT APPLICABLE FOR DIALYSIS PATIENTS. HEPATIC FUNCTION [id number] 07:37:00 Test Item Value Reference Range Comments TOTAL PROTEIN (BEAKER) (test kyhf=509) 7.0 gm/dL 6.0-8.3 ALBUMIN (BEAKER) (test uuwu=0811) 3.2 g/dL 3.5-5.0 BILIRUBIN TOTAL (BEAKER) (test oitg=735) 1.1 mg/dL 0.2-1.2 BILIRUBIN DIRECT (BEAKER) (test zxic=296) 0.5 mg/dL 0.1-0.5 ALKALINE PHOSPHATASE (BEAKER) (test jeik=358) 93 U/L 40-150 AST (SGOT) (BEAKER) (test qgwf=203) 13 U/L 5-34 ALT (SGPT) (BEAKER) (test vevy=607) 12 U/L 6-55 CBC W/PLT COUNT & AUTO [id number] 06:02:00 Test Item Value Reference Range Comments WHITE BLOOD CELL COUNT (BEAKER) (test fqpb=301) 4.2 K/ L 3.5-10.5 RED BLOOD CELL COUNT (BEAKER) (test eecu=034) 3.01 M/ L 3.93-5.22 HEMOGLOBIN (BEAKER) (test pxot=528) 7.5 GM/DL 11.2-15.7 HEMATOCRIT (BEAKER) (test xpzf=705) 24.4 % 34.1-44.9 MEAN CORPUSCULAR VOLUME (BEAKER) (test ipom=439) 81.1 fL 79.4-94.8 MEAN CORPUSCULAR HEMOGLOBIN (BEAKER) (test 24.9 pg 25.6-32.2 ohno=573) MEAN CORPUSCULAR HEMOGLOBIN CONC (BEAKER) (test 30.7 GM/DL 32.2-35.5 vnyo=632) RED CELL DISTRIBUTION WIDTH (BEAKER) (test 14.8 % 11.7-14.4 ukhj=336) PLATELET COUNT (BEAKER) (test dlkh=703) 220 K/CU MM 150-450 MEAN PLATELET VOLUME (BEAKER) (test suai=036) 10.3 fL 9.4-12.3 NUCLEATED RED BLOOD CELLS (BEAKER) (test 0 /100 WBC 0-0 ljoz=561) NEUTROPHILS RELATIVE PERCENT (BEAKER) (test 52 % fqfa=274) LYMPHOCYTES RELATIVE PERCENT (BEAKER) (test 32 % qtxx=132) MONOCYTES RELATIVE PERCENT (BEAKER) (test 11 % nafx=247) EOSINOPHILS RELATIVE PERCENT (BEAKER) (test 4 % zpwp=555) BASOPHILS RELATIVE PERCENT (BEAKER) (test 1 % hpsp=117) NEUTROPHILS ABSOLUTE COUNT (BEAKER) (test 2.14 K/ L 1.56-6.13 atbx=475) LYMPHOCYTES ABSOLUTE COUNT (BEAKER) (test 1.32 K/ L 1.18-3.74 kxap=508) MONOCYTES ABSOLUTE COUNT (BEAKER) (test 0.44 K/ L 0.24-0.36 yhrs=740) EOSINOPHILS ABSOLUTE COUNT (BEAKER) (test 0.16 K/ L 0.04-0.36 iapw=738) BASOPHILS ABSOLUTE COUNT (BEAKER) (test 0.04 K/ L 0.01-0.08 nkxp=647) IMMATURE GRANULOCYTES-RELATIVE PERCENT (BEAKER) 1 % 0-1 (test cbxu=6727) POCT-GLUCOSE [id number] 21:57:00 Test Item Value Reference Range Comments POC-GLUCOSE METER (BEAKER) 156 mg/dL 70-110 TESTED AT [address] (test ntuc=0843) [place] [address] POCT-GLUCOSE [id number] 17:25:00 Test Item Value Reference Range Comments POC-GLUCOSE METER (BEAKER) 111 mg/dL 70-110 TESTED AT [address] (test nofm=7506) [place] [address] BODY FLUID CULTURE + GRAM [id number] 15:07:00 Test Item Value Reference Range Comments CULTURE (BEAKER) (test sszj=0609) No growth GRAM STAIN RESULT (BEAKER) (test <1+ WBCs wgpr=4297) GRAM STAIN RESULT (BEAKER) (test No organisms seen behh=23223) POCT-GLUCOSE [id number] 12:46:00 Test Item Value Reference Range Comments POC-GLUCOSE METER (BEAKER) 87 mg/dL 70-110 TESTED AT [address] (test fesv=5725) [place] [address] TACROLIMUS [id number] 11:03:00 Test Item Value Reference Range Comments TACROLIMUS BLOOD (BEAKER) (test kers=073) 10.0 ng/mL 10.0-20.0 POCT-GLUCOSE [id number] 08:16:00 Test Item Value Reference Range Comments POC-GLUCOSE METER (BEAKER) 126 mg/dL 70-110 TESTED AT [address] (test pjyv=1244) [place] [address] BASIC METABOLIC [id number] 06:40:00 Test Item Value Reference Range Comments SODIUM (BEAKER) (test 133 meq/L 136-145 vjui=829) POTASSIUM (BEAKER) (test 4.8 meq/L 3.5-5.1 wogk=556) CHLORIDE (BEAKER) (test 106 meq/L 98-107 jnsa=292) CO2 (BEAKER) (test 19 meq/L 22-29 wetx=733) BLOOD UREA NITROGEN 71 mg/dL 7-21 (BEAKER) (test rrlk=008) CREATININE (BEAKER) (test 3.44 mg/dL 0.57-1.25 wadh=673) GLUCOSE RANDOM (BEAKER) 77 mg/dL 70-105 (test kcco=800) CALCIUM (BEAKER) (test 8.4 mg/dL 8.4-10.2 rjxo=497) EGFR (BEAKER) (test 13 mL/min/1.73 sq m ESTIMATED GFR IS NOT fdad=1509) ACCURATE CREATININE CLEARANCE IN PREDICTING GLOMERULAR FILTRATION RATE. ESTIMATED GFR IS NOT APPLICABLE FOR DIALYSIS PATIENTS. HEPATIC FUNCTION [id number] 06:33:00 Test Item Value Reference Range Comments TOTAL PROTEIN (BEAKER) (test gcsx=360) 6.9 gm/dL 6.0-8.3 ALBUMIN (BEAKER) (test qiih=5494) 3.1 g/dL 3.5-5.0 BILIRUBIN TOTAL (BEAKER) (test ghit=937) 0.9 mg/dL 0.2-1.2 BILIRUBIN DIRECT (BEAKER) (test cqls=044) 0.5 mg/dL 0.1-0.5 ALKALINE PHOSPHATASE (BEAKER) (test fpzm=170) 93 U/L 40-150 AST (SGOT) (BEAKER) (test qogg=673) 16 U/L 5-34 ALT (SGPT) (BEAKER) (test cnta=730) 9 U/L 6-55 CBC W/PLT COUNT & AUTO [id number] 05:51:00 Test Item Value Reference Range Comments WHITE BLOOD CELL COUNT (BEAKER) (test qwbm=241) 4.7 K/ L 3.5-10.5 RED BLOOD CELL COUNT (BEAKER) (test pxsn=877) 3.01 M/ L 3.93-5.22 HEMOGLOBIN (BEAKER) (test djav=026) 7.5 GM/DL 11.2-15.7 HEMATOCRIT (BEAKER) (test gksj=085) 24.8 % 34.1-44.9 MEAN CORPUSCULAR VOLUME (BEAKER) (test pzdu=264) 82.4 fL 79.4-94.8 MEAN CORPUSCULAR HEMOGLOBIN (BEAKER) (test 24.9 pg 25.6-32.2 cswr=581) MEAN CORPUSCULAR HEMOGLOBIN CONC (BEAKER) (test 30.2 GM/DL 32.2-35.5 wcuh=993) RED CELL DISTRIBUTION WIDTH (BEAKER) (test 14.9 % 11.7-14.4 qnyq=165) PLATELET COUNT (BEAKER) (test xily=156) 199 K/CU MM 150-450 MEAN PLATELET VOLUME (BEAKER) (test qlvw=250) 9.4 fL 9.4-12.3 NUCLEATED RED BLOOD CELLS (BEAKER) (test 0 /100 WBC 0-0 ypus=871) NEUTROPHILS RELATIVE PERCENT (BEAKER) (test 55 % biaa=543) LYMPHOCYTES RELATIVE PERCENT (BEAKER) (test 27 % nkxr=824) MONOCYTES RELATIVE PERCENT (BEAKER) (test 10 % akts=540) EOSINOPHILS RELATIVE PERCENT (BEAKER) (test 4 % pibd=847) BASOPHILS RELATIVE PERCENT (BEAKER) (test 1 % oity=254) NEUTROPHILS ABSOLUTE COUNT (BEAKER) (test 2.60 K/ L 1.56-6.13 stqy=876) LYMPHOCYTES ABSOLUTE COUNT (BEAKER) (test 1.29 K/ L 1.18-3.74 meyg=199) MONOCYTES ABSOLUTE COUNT (BEAKER) (test 0.49 K/ L 0.24-0.36 zruo=626) EOSINOPHILS ABSOLUTE COUNT (BEAKER) (test 0.19 K/ L 0.04-0.36 auna=166) BASOPHILS ABSOLUTE COUNT (BEAKER) (test 0.05 K/ L 0.01-0.08 cwyq=227) IMMATURE GRANULOCYTES-RELATIVE PERCENT (BEAKER) 2 % 0-1 (test vrjv=1564) POCT-GLUCOSE [id number] 21:41:00 Test Item Value Reference Range Comments POC-GLUCOSE METER (BEAKER) 135 mg/dL 70-110 TESTED AT [facility] [address] [facility] (test pind=2852) [facility] [address] [id number] 20:16:00 Test Item Value Reference Range Comments FERRITIN (BEAKER) (test dqqy=247) 73 ng/mL 5-275 POCT-GLUCOSE [id number] 18:07:00 Test Item Value Reference Range Comments POC-GLUCOSE METER (BEAKER) 158 mg/dL 70-110 TESTED AT [facility] [address] [facility] (test ddet=0713) [facility] [address] RETICULOCYTE [id number] 14:40:00 Test Item Value Reference Range Comments RETICULOCYTE COUNT PCT (BEAKER) (test cxvy=995) 3.7 % 0.5-1.7 HEPATITIS PANEL, [id number] 14:31:00 Test Item Value Reference Range Comments HEPATITIS A IGM ANTIBODY (BEAKER) (test Nonreactive Nonreactive dafe=460) HEPATITIS B CORE IGM ANTIBODY (BEAKER) (test Nonreactive Nonreactive rtni=102) HEPATITIS C ANTIBODY (BEAKER) (test ekko=814) Reactive Nonreactive HEPATITIS B SURFACE ANTIGEN (2) (BEAKER) (test Nonreactive Nonreactive osxb=0716) HEPATITIS B CORE ANTIBODY, [id number] 14:27:00 Test Item Value Reference Range Comments HEPATITIS B CORE TOTAL ANTIBODY (BEAKER) (test Nonreactive Nonreactive cttp=768) TSH/FREE T4 IF [id number] 14:27:00 Test Item Value Reference Range Comments THYROID STIMULATING HORMONE (BEAKER) (test 1.44 uIU/mL 0.35-4.94 hreq=921) [id number] 14:20:00 Test Item Value Reference Range Comments PROTIME (BEAKER) (test jguk=432) 14.7 seconds 11.9-14.2 INR (BEAKER) (test kygf=325) 1.2 <=5.9 PARTIAL THROMBOPLASTIN TIME (BEAKER) (test 35.3 seconds 22.5-36.0 zlyz=671) Effective 08/20/2018: PT Reference Range ChangeNew: 11.9-14.2 Previous: 11.7- 14.7RECOMMENDED COUMADIN/WARFARIN INR THERAPY RANGESSTANDARD DOSE: 2.0-3.0 Includes: PROPHYLAXIS for venous thrombosis, systemic embolization; TREATMENT for venous thrombosis and/or pulmonary embolus.HIGH RISK: Target INR is2.5-3.5 for patients wiht mechanical heart valves.PTH, [id number] 14:07:00 Test Item Value Reference Range Comments PARATHYROID HORMONE INTACT (BEAKER) (test 311.0 pg/mL 8.5-72.5 vvnu=136) IRON, TIBC, % SAT. (WITHOUT FERRITIN)2018-09-06 14:00:00 Test Item Value Reference Range Comments IRON (BEAKER) (test wtbd=443) 24.0 ug/dL 40.0-160.0 TOTAL IRON BINDING CAPACITY (BEAKER) (test 308 ug/dL 250-450 ivgy=862) IRON % SATURATION (2) (BEAKER) (test gpek=0742) 8 % 20-55 TACROLIMUS [id number] 13:41:00 Test Item Value Reference Range Comments TACROLIMUS BLOOD (BEAKER) (test xebq=885) 7.2 ng/mL 10.0-20.0 POCT-GLUCOSE [id number] 11:43:00 Test Item Value Reference Range Comments POC-GLUCOSE METER (BEAKER) 191 mg/dL 70-110 TESTED AT [address] (test bqti=8017) [facility] [address] POCT-GLUCOSE [id number] 08:45:00 Test Item Value Reference Range Comments POC-GLUCOSE METER (BEAKER) 119 mg/dL 70-110 TESTED AT [address] (test owou=8042) [facility] [address] BASIC METABOLIC [id number] 07:28:00 Test Item Value Reference Range Comments SODIUM (BEAKER) (test 133 meq/L 136-145 yuua=204) POTASSIUM (BEAKER) (test 5.1 meq/L 3.5-5.1 Specimen slightly hkpo=026) hemolyzed CHLORIDE (BEAKER) (test 107 meq/L 98-107 wpia=413) CO2 (BEAKER) (test 18 meq/L 22-29 pytw=450) BLOOD UREA NITROGEN 71 mg/dL 7-21 (BEAKER) (test nour=481) CREATININE (BEAKER) (test 3.46 mg/dL 0.57-1.25 Specimen slightly gmwr=885) hemolyzed GLUCOSE RANDOM (BEAKER) 100 mg/dL 70-105 (test zedf=456) CALCIUM (BEAKER) (test 8.5 mg/dL 8.4-10.2 juec=376) EGFR (BEAKER) (test 13 mL/min/1.73 sq m ESTIMATED GFR IS NOT csgk=2171) ACCURATE CREATININE CLEARANCE IN PREDICTING GLOMERULAR FILTRATION RATE. ESTIMATED GFR IS NOT APPLICABLE FOR DIALYSIS PATIENTS. HEPATIC FUNCTION [id number] 07:26:00 Test Item Value Reference Range Comments TOTAL PROTEIN (BEAKER) (test 7.3 gm/dL 6.0-8.3 Specimen slightly hemolyzed eslc=154) ALBUMIN (BEAKER) (test 3.2 g/dL 3.5-5.0 Specimen slightly hemolyzed dqqq=6677) BILIRUBIN TOTAL (BEAKER) (test 1.1 mg/dL 0.2-1.2 Specimen slightly hemolyzed rjjb=868) BILIRUBIN DIRECT (BEAKER) (test 0.5 mg/dL 0.1-0.5 Specimen slightly hemolyzed cynw=179) ALKALINE PHOSPHATASE (BEAKER) 93 U/L 40-150 (test qtij=775) AST (SGOT) (BEAKER) (test 21 U/L 5-34 Specimen slightly hemolyzed nwgp=374) ALT (SGPT) (BEAKER) (test 11 U/L 6-55 Specimen slightly hemolyzed zczz=879) CBC W/PLT COUNT & AUTO [id number] 06:31:00 Test Item Value Reference Range Comments WHITE BLOOD CELL COUNT (BEAKER) (test hmyx=123) 4.0 K/ L 3.5-10.5 RED BLOOD CELL COUNT (BEAKER) (test gktj=108) 2.97 M/ L 3.93-5.22 HEMOGLOBIN (BEAKER) (test prmg=479) 7.5 GM/DL 11.2-15.7 HEMATOCRIT (BEAKER) (test hcua=874) 24.6 % 34.1-44.9 MEAN CORPUSCULAR VOLUME (BEAKER) (test nymp=857) 82.8 fL 79.4-94.8 MEAN CORPUSCULAR HEMOGLOBIN (BEAKER) (test 25.3 pg 25.6-32.2 vzin=852) MEAN CORPUSCULAR HEMOGLOBIN CONC (BEAKER) (test 30.5 GM/DL 32.2-35.5 vpqf=985) RED CELL DISTRIBUTION WIDTH (BEAKER) (test 15.3 % 11.7-14.4 eoup=980) PLATELET COUNT (BEAKER) (test kfvc=920) 207 K/CU MM 150-450 MEAN PLATELET VOLUME (BEAKER) (test qocb=454) 10.6 fL 9.4-12.3 NUCLEATED RED BLOOD CELLS (BEAKER) (test 0 /100 WBC 0-0 kpzd=551) NEUTROPHILS RELATIVE PERCENT (BEAKER) (test 51 % tgty=242) LYMPHOCYTES RELATIVE PERCENT (BEAKER) (test 31 % lowb=143) MONOCYTES RELATIVE PERCENT (BEAKER) (test 10 % cobg=358) EOSINOPHILS RELATIVE PERCENT (BEAKER) (test 5 % rvav=575) BASOPHILS RELATIVE PERCENT (BEAKER) (test 1 % jbds=111) NEUTROPHILS ABSOLUTE COUNT (BEAKER) (test 2.04 K/ L 1.56-6.13 vrdf=658) LYMPHOCYTES ABSOLUTE COUNT (BEAKER) (test 1.24 K/ L 1.18-3.74 qwhi=223) MONOCYTES ABSOLUTE COUNT (BEAKER) (test 0.40 K/ L 0.24-0.36 wfuc=605) EOSINOPHILS ABSOLUTE COUNT (BEAKER) (test 0.20 K/ L 0.04-0.36 vljd=403) BASOPHILS ABSOLUTE COUNT (BEAKER) (test 0.05 K/ L 0.01-0.08 ipnd=287) IMMATURE GRANULOCYTES-RELATIVE PERCENT (BEAKER) 2 % 0-1 (test fvzp=6306) POCT-GLUCOSE [id number] 22:37:00 Test Item Value Reference Range Comments POC-GLUCOSE METER (BEAKER) 144 mg/dL 70-110 TESTED AT [address] (test hxle=4847) [place] [id number] POCT-GLUCOSE [id number] 16:48:00 Test Item Value Reference Range Comments POC-GLUCOSE METER (BEAKER) 207 mg/dL 70-110 TESTED AT [address] (test hgsn=7529) [facility] [address] POCT-GLUCOSE [id number] 12:16:00 Test Item Value Reference Range Comments POC-GLUCOSE METER (BEAKER) 191 mg/dL 70-110 TESTED AT [address] (test dzcc=3393) [facility] [address] TACROLIMUS [id number] 11:23:00 Test Item Value Reference Range Comments TACROLIMUS BLOOD (BEAKER) (test ubwc=206) 5.7 ng/mL 10.0-20.0 BASIC METABOLIC [id number] 06:24:00 Test Item Value Reference Range Comments SODIUM (BEAKER) (test 133 meq/L 136-145 qtbk=314) POTASSIUM (BEAKER) (test 5.6 meq/L 3.5-5.1 fszi=590) CHLORIDE (BEAKER) (test 108 meq/L 98-107 pryq=277) CO2 (BEAKER) (test 19 meq/L 22-29 udfl=780) BLOOD UREA NITROGEN 73 mg/dL 7-21 (BEAKER) (test utqp=942) CREATININE (BEAKER) (test 3.71 mg/dL 0.57-1.25 ewxz=432) GLUCOSE RANDOM (BEAKER) 136 mg/dL 70-105 (test wmfz=907) CALCIUM (BEAKER) (test 8.4 mg/dL 8.4-10.2 xcfy=061) EGFR (BEAKER) (test 12 mL/min/1.73 sq m ESTIMATED GFR IS NOT gxgb=6480) ACCURATE CREATININE CLEARANCE IN PREDICTING GLOMERULAR FILTRATION RATE. ESTIMATED GFR IS NOT APPLICABLE FOR DIALYSIS PATIENTS. HEPATIC FUNCTION [id number] 06:22:00 Test Item Value Reference Range Comments TOTAL PROTEIN (BEAKER) (test kvpd=028) 7.0 gm/dL 6.0-8.3 ALBUMIN (BEAKER) (test ppan=6812) 3.1 g/dL 3.5-5.0 BILIRUBIN TOTAL (BEAKER) (test kswk=677) 1.1 mg/dL 0.2-1.2 BILIRUBIN DIRECT (BEAKER) (test sxcy=192) 0.5 mg/dL 0.1-0.5 ALKALINE PHOSPHATASE (BEAKER) (test ldfv=555) 88 U/L 40-150 AST (SGOT) (BEAKER) (test xgje=074) 15 U/L 5-34 ALT (SGPT) (BEAKER) (test zkrl=070) 11 U/L 6-55 POCT-GLUCOSE [id number] 22:19:00 Test Item Value Reference Range Comments POC-GLUCOSE METER (BEAKER) 195 mg/dL 70-110 TESTED AT [facility] [address] [facility] (test ojfe=7762) [facility] [address] BODY FLUID CELL COUNT WITH [id number] 21:04:00 Test Item Value Reference Range Comments APPEARANCE FLUID (BEAKER) (test wljt=463) Hazy Clear COLOR FLUID (BEAKER) (test zmkv=371) Lis Colorless, Straw RBC FLUID (BEAKER) (test zwvt=498) 5300 /cu mm <=1 ADJUSTED WBC FLUID (BEAKER) (test jliy=1926) 634 /cu mm <=5 LINING CELLS (BEAKER) (test iwjz=4678) 6 /cu mm <=1 NEUTROPHILS FLUID (BEAKER) (test czfe=2523) 17 % LYMPHS FLUID (BEAKER) (test wiyk=659) 59 % MONO/MACROPHAGE FLUID (BEAKER) (test milf=775) 24 % EOSINOPHILS FLUID (BEAKER) (test iqzn=140) 0 % BASO FLUID (BEAKER) (test axrv=996) 0 % CONTAINER BODY FLUID (BEAKER) (test vbdh=2156) EDTA Tube PH, BODY [id number] 19:43:00 Test Item Value Reference Range Comments PH, BODY FLUID (BEAKER) (test mrgy=1424) 7.80 LACTATE DEHYDROGENASE (LDH), BODY [id number] 19:41:00 Test Item Value Reference Range Comments LACTATE DEHYDROGENASE FLUID (BEAKER) < U/L Light's criteria identifies (test vwnc=136) effusions if one or more are pre Absence of reference range indicates that normals have not been defined.Assay performance has not been validated for this type of specimen.ALBUMIN, BODY [id number] 19:36:00 Test Item Value Reference Range Comments ALBUMIN FLUID (BEAKER) (test hbnb=265) 1.4 gm/dL Reference Range: No Normals Assay performance has not been validated for this type of specimen.PROTEIN, BODY [id number] 19:31:00 Test Item Value Reference Range Comments PROTEIN FLUID (BEAKER) (test 2.5 g/dL Light's criteria identifies ktiy=133) effusions if one or more are pre Absence of reference range indicates that normals have not been defined.Assay performance has not been validated for this type of specimen.RAD, CHEST, 1 VIEW , NON [id number] 19:14:00Reason for exam:->post right sided thoracentesisShould this be performed at the bedside?->YesFINAL REPORT EXAMINATION: AP PORTABLE CHEST RADIOGRAPH CLINICAL [...] cannot be excluded. Signed: Maria Alejandra Doe MDReport Verified Date/Time: 09/04/2018 19:14:07 Reading Location : [address] Reading Room HEPATIC FUNCTION [id number] 13:48:00 Test Item Value Reference Range Comments TOTAL PROTEIN (BEAKER) (test rqjc=568) 7.7 gm/dL 6.0-8.3 ALBUMIN (BEAKER) (test ygtd=9635) 3.6 g/dL 3.5-5.0 BILIRUBIN TOTAL (BEAKER) (test tpqs=028) 1.3 mg/dL 0.2-1.2 BILIRUBIN DIRECT (BEAKER) (test rjvq=406) 0.6 mg/dL 0.1-0.5 ALKALINE PHOSPHATASE (BEAKER) (test rfdx=048) 96 U/L 40-150 AST (SGOT) (BEAKER) (test ymre=852) 15 U/L 5-34 ALT (SGPT) (BEAKER) (test pxpu=800) 12 U/L 6-55 POCT-GLUCOSE [id number] 12:07:00 Test Item Value Reference Range Comments POC-GLUCOSE METER (BEAKER) 171 mg/dL 70-110 TESTED AT [address] (test qdbw=0241) [facility] [address] RAD, CHEST, 1 VIEW, NON [id number] 09:39:00Reason for exam:->assess lung volumesShould this be performed at the bedside?->YesFINAL REPORT Chest, 1 view, 09/04/2018 6:27 AM. History: Shortness of breath.Comparison: 08/21/2018. Discussion: The cardiomediastinal silhouette and pulmonary vasculature are prominent with hazy bilateral perihilar and bibasilar opacities, with blunting of the chest from the sulci. The soft tissues and osseous structures are intact. IMPRESSION: CHF with bibasilar atelectasis and mild bilateral pleural effusions. Signed: Alfredo Casas MDReport Verified Date/ Time: 09/04/2018 09:39:09 Reading Location: [facility] Radiology Reading Room POCT-GLUCOSE [id number] 09:09:00 Test Item Value Reference Range Comments POC-GLUCOSE METER (BEAKER) 211 mg/dL 70-110 TESTED AT [facility] [address] [facility] (test iljk=8672) [facility] [address] TACROLIMUS [id number] 09:06:00 Test Item Value Reference Range Comments TACROLIMUS BLOOD (BEAKER) (test vxhh=281) 13.6 ng/mL 10.0-20.0 BASIC METABOLIC [id number] 06:49:00 Test Item Value Reference Range Comments SODIUM (BEAKER) (test 136 meq/L 136-145 ewtk=570) POTASSIUM (BEAKER) (test 5.3 meq/L 3.5-5.1 btjh=702) CHLORIDE (BEAKER) (test 111 meq/L 98-107 lfec=883) CO2 (BEAKER) (test 19 meq/L 22-29 tzrh=498) BLOOD UREA NITROGEN 71 mg/dL 7-21 (BEAKER) (test vpik=738) CREATININE (BEAKER) (test 3.91 mg/dL 0.57-1.25 yxql=306) GLUCOSE RANDOM (BEAKER) 133 mg/dL 70-105 (test rajd=567) CALCIUM (BEAKER) (test 8.8 mg/dL 8.4-10.2 esvm=184) EGFR (BEAKER) (test 12 mL/min/1.73 sq m ESTIMATED GFR IS NOT ibrd=1659) ACCURATE CREATININE CLEARANCE IN PREDICTING GLOMERULAR FILTRATION RATE. ESTIMATED GFR IS NOT APPLICABLE FOR DIALYSIS PATIENTS. PROTHROMBIN TIME/[id number] 06:23:00 Test Item Value Reference Range Comments PROTIME (BEAKER) (test lpmm=172) 15.2 seconds 11.9-14.2 INR (BEAKER) (test shoc=882) 1.3 <=5.9 Effective 08/20/2018: PT Reference Range ChangeNew: 11.9-14.2 Previous: 11.7- 14.7RECOMMENDED COUMADIN/WARFARIN INR THERAPY RANGESSTANDARD DOSE: 2.0-3.0 Includes: PROPHYLAXIS for venous thrombosis, systemic embolization; TREATMENT for venous thrombosis and/or pulmonary embolus.HIGH RISK: Target INR is2.5-3.5 for patients wiht mechanical heart valves.CBC W/PLT COUNT & AUTO [id number] 06:16:00 Test Item Value Reference Range Comments WHITE BLOOD CELL COUNT (BEAKER) (test nipm=428) 4.4 K/ L 3.5-10.5 RED BLOOD CELL COUNT (BEAKER) (test akrg=094) 2.93 M/ L 3.93-5.22 HEMOGLOBIN (BEAKER) (test brhq=641) 7.3 GM/DL 11.2-15.7 HEMATOCRIT (BEAKER) (test ppro=854) 24.4 % 34.1-44.9 MEAN CORPUSCULAR VOLUME (BEAKER) (test ivrm=303) 83.3 fL 79.4-94.8 MEAN CORPUSCULAR HEMOGLOBIN (BEAKER) (test 24.9 pg 25.6-32.2 dmat=069) MEAN CORPUSCULAR HEMOGLOBIN CONC (BEAKER) (test 29.9 GM/DL 32.2-35.5 mxgo=865) RED CELL DISTRIBUTION WIDTH (BEAKER) (test 15.2 % 11.7-14.4 lwgj=862) PLATELET COUNT (BEAKER) (test odff=873) 165 K/CU MM 150-450 MEAN PLATELET VOLUME (BEAKER) (test qywc=820) 9.6 fL 9.4-12.3 NUCLEATED RED BLOOD CELLS (BEAKER) (test 0 /100 WBC 0-0 okno=672) NEUTROPHILS RELATIVE PERCENT (BEAKER) (test 62 % jagj=599) LYMPHOCYTES RELATIVE PERCENT (BEAKER) (test 24 % zrwi=997) MONOCYTES RELATIVE PERCENT (BEAKER) (test 9 % jepp=922) EOSINOPHILS RELATIVE PERCENT (BEAKER) (test 2 % cvho=023) BASOPHILS RELATIVE PERCENT (BEAKER) (test 1 % ycfl=328) NEUTROPHILS ABSOLUTE COUNT (BEAKER) (test 2.77 K/ L 1.56-6.13 zeoe=208) LYMPHOCYTES ABSOLUTE COUNT (BEAKER) (test 1.06 K/ L 1.18-3.74 sckq=420) MONOCYTES ABSOLUTE COUNT (BEAKER) (test 0.40 K/ L 0.24-0.36 xwel=956) EOSINOPHILS ABSOLUTE COUNT (BEAKER) (test 0.08 K/ L 0.04-0.36 jaks=498) BASOPHILS ABSOLUTE COUNT (BEAKER) (test 0.03 K/ L 0.01-0.08 kspd=697) IMMATURE GRANULOCYTES-RELATIVE PERCENT (BEAKER) 2 % 0-1 (test spsa=5529) POCT-GLUCOSE [id number] 01:17:00 Test Item Value Reference Range Comments POC-GLUCOSE METER (BEAKER) 172 mg/dL 70-110 TESTED AT [facility] [address] [place] [address] (test huie=2499) [facility] [address] URINE IMMUNOFIXATION, [id number] 16:27:00 Test Item Value Reference Range Comments PROTEIN, URINE (BEAKER) 240 mg/dL 0-14 (test kqqp=6687) ALBUMIN URINE ELP (BEAKER) 59.2 % (test zznj=1740) GAMMA GLOBULIN URINE 40.8 % (BEAKER) (test nvru=9455) URINE TOMA ID-402 (BEAKER) Urine immunofixation (test kokp=3848) electrophoresis reveals no monoclonal proteins or free light chains. [id number] Ian Morin M.D. (electonic (BEAKER) (test puuy=3248) signature) IMMUNOFIXATION ELECTROPHORESIS (TOMA)2018-08-27 16:09:00 Test Item Value Reference Range Comments IMMUNOGLOBULIN G (IGG) (BEAKER) 1790 mg/dL 540-1,822 (test tett=718) IMMUNOGLOBULIN A (IGA) (BEAKER) 282 mg/dL 63-484 (test faai=591) IMMUNOGLOBULIN M (IGM) (BEAKER) 52 mg/dL 22-293 (test eacw=810) SERUM TOMA ID (BEAKER) (test No monoclonal proteins ijmd=4789) detected. Polyclonal distribution of immunoglobulins. [id number] (BEAKER) Ian Morin M.D. (test vcsh=6326) (electonic signature) BODY FLUID CULTURE + GRAM [id number] 15:47:00 Test Item Value Reference Range Comments CULTURE (BEAKER) (test ceja=8893) No growth GRAM STAIN RESULT (BEAKER) (test <1+ WBCs urzl=0636) GRAM STAIN RESULT (BEAKER) (test No organisms seen sxaw=44682) POCT-GLUCOSE [id number] 12:14:00 Test Item Value Reference Range Comments POC-GLUCOSE METER (BEAKER) 210 mg/dL 70-110 TESTED AT [address] (test xqhe=5611) [place] [address] [id number] 12:01:00 Test Item Value Reference Range Comments POTASSIUM (BEAKER) (test fucf=453) 5.2 meq/L 3.5-5.1 TACROLIMUS [id number] 11:52:00 Test Item Value Reference Range Comments TACROLIMUS BLOOD (BEAKER) (test ttjy=410) 6.4 ng/mL 10.0-20.0 Please draw 30 min prior to AM dose. Thanks!POCT-GLUCOSE [id number] 08:13: 00 Test Item Value Reference Range Comments POC-GLUCOSE METER (BEAKER) 143 mg/dL 70-110 TESTED AT [address] (test rifi=9110) [place] [address] CREATININE [id number] 07:26:00 Test Item Value Reference Range Comments CREATININE CLEARANCE (BEAKER) (test xkib=950) 10.9 mL/min 70.0-140.0 VOLUME, TOTAL (BEAKER) (test rtuq=8563) 800 ml CREATININE URINE (BEAKER) (test ykpi=988) 76.9 mg/dL PATIENT HEIGHT (CM) (BEAKER) (test sjto=1612) 167.0 cm PATIENT WEIGHT (KG) (BEAKER) (test gwwn=4741) 95.300 kg PROTEIN, 24 HOUR [id number] 07:26:00 Test Item Value Reference Range Comments PROTEIN, 24HR URINE (BEAKER) (test sxib=6387) 2000 mg/24hr 0-300 VOLUME, TOTAL (BEAKER) (test cvzj=8593) 800 ml PROTEIN, URINE (BEAKER) (test lgtv=3125) 250 mg/dL 0-14 COMPREHENSIVE METABOLIC [id number] 07:17:00 Test Item Value Reference Range Comments TOTAL PROTEIN (BEAKER) 6.6 gm/dL 6.0-8.3 (test etjg=156) ALBUMIN (BEAKER) (test 3.0 g/dL 3.5-5.0 qujc=3145) ALKALINE PHOSPHATASE 88 U/L 40-150 (BEAKER) (test ckpl=510) BILIRUBIN TOTAL (BEAKER) 0.8 mg/dL 0.2-1.2 (test arji=055) SODIUM (BEAKER) (test 136 meq/L 136-145 dkqm=089) POTASSIUM (BEAKER) (test 5.5 meq/L 3.5-5.1 mtte=947) CHLORIDE (BEAKER) (test 108 meq/L 98-107 xfbx=815) CO2 (BEAKER) (test 24 meq/L 22-29 dmwq=070) BLOOD UREA NITROGEN 51 mg/dL 7-21 (BEAKER) (test ytqm=023) CREATININE (BEAKER) (test 3.23 mg/dL 0.57-1.25 jicg=826) GLUCOSE RANDOM (BEAKER) 129 mg/dL 70-105 (test mzwl=855) CALCIUM (BEAKER) (test 8.3 mg/dL 8.4-10.2 ozmz=430) AST (SGOT) (BEAKER) (test 23 U/L 5-34 tizv=534) ALT (SGPT) (BEAKER) (test 24 U/L 6-55 cpmr=243) EGFR (BEAKER) (test 14 mL/min/1.73 sq m ESTIMATED GFR IS NOT mucc=6635) ACCURATE CREATININE CLEARANCE IN PREDICTING GLOMERULAR FILTRATION RATE. ESTIMATED GFR IS NOT APPLICABLE FOR DIALYSIS PATIENTS. CBC (HEMOGRAM ONLY)2018-08-23 06:58:00 Test Item Value Reference Range Comments WHITE BLOOD CELL COUNT (BEAKER) (test mzar=349) 4.0 K/ L 3.5-10.5 RED BLOOD CELL COUNT (BEAKER) (test sock=682) 3.16 M/ L 3.93-5.22 HEMOGLOBIN (BEAKER) (test qglj=486) 7.9 GM/DL 11.2-15.7 HEMATOCRIT (BEAKER) (test vibv=658) 25.6 % 34.1-44.9 MEAN CORPUSCULAR VOLUME (BEAKER) (test irnw=539) 81.0 fL 79.4-94.8 MEAN CORPUSCULAR HEMOGLOBIN (BEAKER) (test 25.0 pg 25.6-32.2 dset=657) MEAN CORPUSCULAR HEMOGLOBIN CONC (BEAKER) (test 30.9 GM/DL 32.2-35.5 opkw=703) RED CELL DISTRIBUTION WIDTH (BEAKER) (test 14.2 % 11.7-14.4 zfjj=475) PLATELET COUNT (BEAKER) (test cwlf=890) 166 K/CU MM 150-450 MEAN PLATELET VOLUME (BEAKER) (test qxvi=848) 9.7 fL 9.4-12.3 NUCLEATED RED BLOOD CELLS (BEAKER) (test 0 /100 WBC 0-0 xgqo=226) ANTI-NUCLEAR ANTIBODY (WOODY)2018-08-23 06:01:00 Test Item Value Reference Range Comments ANTI-NUCLEAR ANTIBODY (WOODY) (BEAKER) (test Negative Negative etrt=983) Test performed by IFA method.Test performed by IFA method.POCT-GLUCOSE [id number] 21:18:00 Test Item Value Reference Range Comments POC-GLUCOSE METER (BEAKER) 231 mg/dL 70-110 TESTED AT [address] (test laqf=2209) [facility] [address] URINE PROTEIN ELECTROPHORESIS, [id number] 18:38:00 Test Item Value Reference Range Comments PROTEIN, URINE (BEAKER) 240 mg/dL 0-14 (test jglf=4055) ALBUMIN URINE ELP (BEAKER) 59.2 % (test xwwn=0183) GAMMA GLOBULIN URINE 40.8 % (BEAKER) (test tpoo=8750) UPEP, ID-438 (BEAKER) (test Urine protein study consistent bcxd=2576) with glomerular dysfunction. There is a possible band present within the gamma region. Refer to serum immunofixation electrophoresis. [id number] Karie Butcher MD (electronic (BEAKER) (test zdnm=4885) signature) [id number] 17:59:00Medical Cytology Report Case: [id number] Authorizing Provider: Celestino Bailey MD Collected: 08/21/2018 1557 Ordering Location: [address] Received: 08/22/2018 0854 Pathologist: Mariano Cutler MD Specimen: Pleural, Right RIGHT PLEURAL FLUID (CYTOSPINS): - NO MALIGNANT CELLS IDENTIFIED (SEE COMMENT) - REACTIVE MESOTHELIAL CELLS WITH CHRONIC INFLAMMATION Signing Pathologist Direct Phone Line: Only a small amount of fluid was received for cytology evaluation. If clinically discordant, repeat thoracentesis with larger amount of fluid sent for cytologyevaluation may be considered. 189[address]Jldhi pleural effusion, history of hepatocellular cancerRIGHT PLEURAL FLUID5 mls lis; 4 cytospinsCollected: [id number]: [id number] [facility], Department of Pathology, [address] [place] [address], [facility], Department of [facility], [address] [place] [address], [facility]fr[facility], Department of [facility]ology, [address] [place] [address], STNY-GLUCOSE [id number] 17:07:00 Test Item Value Reference Range Comments POC-GLUCOSE METER (BEAKER) 174 mg/dL 70-110 TESTED AT [address] (test kzao=6444) [facility] [address] PROTEIN ELECTROPHORESIS, [id number] 15:51:00 Test Item Value Reference Range Comments ALBUMIN FRACTION (BEAKER) 2.8 g/dL 3.5-5.5 (test quab=387) ALPHA 1 FRACTION (BEAKER) 0.2 g/dL 0.2-0.4 (test mwdn=511) ALPHA 2 FRACTION (BEAKER) 0.7 g/dL 0.5-0.9 (test ziad=181) BETA FRACTION (BEAKER) 0.8 g/dL 0.6-1.1 (test rjsm=278) GAMMA GLOBULIN FRACTION 1.7 g/dL 0.7-1.7 (BEAKER) (test tely=197) INTERPRETATION-119 (BEAKER) Albumin decreased. This may (test tiwz=0772) indicate protein malnutrition or a protein losing state. There is a possible restriction present within the gamma region. Please refer to serum immunofixation electrophoresis. [id number] Karie Butcher MD (electronic (BEAKER) (test gwrc=0988) signature) PROTEIN TOTAL SERUM, SPEP 6.2 gm/dL 6.0-8.3 (BEAKER) (test pdnt=1515) RHEUMATOID FACTOR AB, REFLEX TO [id number] 12:56:00 Test Item Value Reference Range Comments RHEUMATOID FACTOR (BEAKER) (test msej=566) Negative [id number] 12:47:00 Test Item Value Reference Range Comments RPR SCREEN (BEAKER) (test ajyq=202) Nonreactive Nonreactive POCT-GLUCOSE [id number] 12:30:00 Test Item Value Reference Range Comments POC-GLUCOSE METER (BEAKER) 200 mg/dL 70-110 TESTED AT [address] (test vlru=9423) [facility] [address] OSMOLALITY, [id number] 11:29:00 Test Item Value Reference Range Comments OSMOLALITY URINE (BEAKER) (test jpzl=683) 300 mOsm/kg 40-1,400 OSMOLALITY, [id number] 10:58:00 Test Item Value Reference Range Comments OSMOLALITY, SERUM (BEAKER) (test ffnk=983) 307 mOsm/kg 280-303 TACROLIMUS [id number] 09:13:00 Test Item Value Reference Range Comments TACROLIMUS BLOOD (BEAKER) (test oyhz=145) 8.5 ng/mL 10.0-20.0 Please draw 30 min prior to AM dose. Thanks!POCT-GLUCOSE [id number] 09:01: 00 Test Item Value Reference Range Comments POC-GLUCOSE METER (BEAKER) 156 mg/dL 70-110 TESTED AT [facility] [address] [facility] (test tact=8125) [facility] [address] HEPATITIS PANEL, [id number] 07:30:00 Test Item Value Reference Range Comments HEPATITIS A IGM ANTIBODY (BEAKER) (test Nonreactive Nonreactive qoye=355) HEPATITIS B CORE IGM ANTIBODY (BEAKER) (test Nonreactive Nonreactive iqqb=705) HEPATITIS C ANTIBODY (BEAKER) (test xexc=378) Reactive Nonreactive HEPATITIS B SURFACE ANTIGEN (2) (BEAKER) (test Nonreactive Nonreactive gruv=7261) COMPREHENSIVE METABOLIC [id number] 06:31:00 Test Item Value Reference Range Comments TOTAL PROTEIN (BEAKER) 6.7 gm/dL 6.0-8.3 (test ubiq=066) ALBUMIN (BEAKER) (test 3.0 g/dL 3.5-5.0 sstm=5357) ALKALINE PHOSPHATASE 86 U/L 40-150 (BEAKER) (test sozo=272) BILIRUBIN TOTAL (BEAKER) 0.7 mg/dL 0.2-1.2 (test hbrx=952) SODIUM (BEAKER) (test 134 meq/L 136-145 qxfh=929) POTASSIUM (BEAKER) (test 5.1 meq/L 3.5-5.1 vbqz=173) CHLORIDE (BEAKER) (test 106 meq/L 98-107 xksu=502) CO2 (BEAKER) (test 23 meq/L 22-29 pfei=303) BLOOD UREA NITROGEN 50 mg/dL 7-21 (BEAKER) (test ucxh=038) CREATININE (BEAKER) (test 3.45 mg/dL 0.57-1.25 yxzq=126) GLUCOSE RANDOM (BEAKER) 158 mg/dL 70-105 (test qqlr=842) CALCIUM (BEAKER) (test 8.2 mg/dL 8.4-10.2 enkn=089) AST (SGOT) (BEAKER) (test 21 U/L 5-34 nnbz=815) ALT (SGPT) (BEAKER) (test 21 U/L 6-55 phjx=401) EGFR (BEAKER) (test 13 mL/min/1.73 sq m ESTIMATED GFR IS NOT pztb=3963) ACCURATE CREATININE CLEARANCE IN PREDICTING GLOMERULAR FILTRATION RATE. ESTIMATED GFR IS NOT APPLICABLE FOR DIALYSIS PATIENTS. CBC (HEMOGRAM ONLY)2018-08-22 05:51:00 Test Item Value Reference Range Comments WHITE BLOOD CELL COUNT (BEAKER) (test gurv=280) 3.8 K/ L 3.5-10.5 RED BLOOD CELL COUNT (BEAKER) (test jrlz=251) 3.05 M/ L 3.93-5.22 HEMOGLOBIN (BEAKER) (test yfzk=392) 7.6 GM/DL 11.2-15.7 HEMATOCRIT (BEAKER) (test wyqz=676) 24.8 % 34.1-44.9 MEAN CORPUSCULAR VOLUME (BEAKER) (test gqwd=957) 81.3 fL 79.4-94.8 MEAN CORPUSCULAR HEMOGLOBIN (BEAKER) (test 24.9 pg 25.6-32.2 znfp=792) MEAN CORPUSCULAR HEMOGLOBIN CONC (BEAKER) (test 30.6 GM/DL 32.2-35.5 brmi=678) RED CELL DISTRIBUTION WIDTH (BEAKER) (test 14.2 % 11.7-14.4 zcip=347) PLATELET COUNT (BEAKER) (test xozf=991) 161 K/CU MM 150-450 MEAN PLATELET VOLUME (BEAKER) (test lwpz=513) 9.5 fL 9.4-12.3 NUCLEATED RED BLOOD CELLS (BEAKER) (test 0 /100 WBC 0-0 zofh=890) HEPATITIS B CORE ANTIBODY, [id number] 22:36:00 Test Item Value Reference Range Comments HEPATITIS B CORE TOTAL ANTIBODY (BEAKER) (test Nonreactive Nonreactive jdlm=835) HIV-1 ANTIGEN WITH HIV-1/2 [id number] 22:36:00 Test Item Value Reference Range Comments HIV-1 ANTIGEN WITH HIV 1\T\2 ANTIBODY (2) Nonreactive Nonreactive (BEAKER) (test ccnf=2417) COMPLEMENT COMPONENT [id number] 22:13:00 Test Item Value Reference Range Comments C4 COMPLEMENT (BEAKER) (test lxhj=048) 21 mg/dL 15-57 COMPLEMENT COMPONENT [id number] 22:13:00 Test Item Value Reference Range Comments C3 COMPLEMENT (BEAKER) (test wtmt=744) 81 mg/dL 82-193 [id number] 22:11:00 Test Item Value Reference Range Comments CREATININE (BEAKER) (test 3.45 mg/dL 0.57-1.25 wpdb=056) EGFR (BEAKER) (test 13 mL/min/1.73 sq m ESTIMATED GFR IS NOT vosg=4963) ACCURATE CREATININE CLEARANCE IN PREDICTING GLOMERULAR FILTRATION RATE. ESTIMATED GFR IS NOT APPLICABLE FOR DIALYSIS PATIENTS. POCT-GLUCOSE [id number] 21:35:00 Test Item Value Reference Range Comments POC-GLUCOSE METER (BEAKER) 244 mg/dL 70-110 TESTED AT [address] (test ywom=8670) [place] [address] EOSINOPHIL SMEAR, [id number] 20:09:00 Test Item Value Reference Range Comments EOSINOPHIL SMEAR, URINE (BEAKER) (test No EOS seen No EOS seen ujsb=6465) Many bacteria seen on stained smears.PROTEIN, RANDOM [id number] 19:59:00 Test Item Value Reference Range Comments PROTEIN, URINE (BEAKER) (test pkpx=6832) 265 mg/dL 0-14 PTH, [id number] 19:43:00 Test Item Value Reference Range Comments PARATHYROID HORMONE INTACT (BEAKER) (test 330.9 pg/mL 8.5-72.5 gorh=916) URIC [id number] 19:36:00 Test Item Value Reference Range Comments URIC ACID (BEAKER) (test dzpe=008) 7.6 mg/dL 2.6-7.2 CHLORIDE, RANDOM [id number] 19:36:00 Test Item Value Reference Range Comments CHLORIDE URINE (BEAKER) (test maxf=419) 29 meq/L Reference Range: No NormalsCREATININE, RANDOM [id number] 19:36:00 Test Item Value Reference Range Comments CREATININE URINE (BEAKER) (test mlkn=959) 84.6 mg/dL Reference Range: No NormalsPOTASSIUM, RANDOM [id number] 19:36:00 Test Item Value Reference Range Comments POTASSIUM URINE (BEAKER) (test sxab=947) 14.7 meq/L Reference Range: No NormalsSODIUM, RANDOM [id number] 19:36:00 Test Item Value Reference Range Comments SODIUM URINE (BEAKER) (test jqkn=485) 48 meq/L Reference Range: No NormalsBODY FLUID CELL COUNT WITH [id number] 18: 20:00 Test Item Value Reference Range Comments APPEARANCE FLUID (BEAKER) (test uanc=137) Hazy Clear COLOR FLUID (BEAKER) (test opiq=991) Yellow Colorless, Straw RBC FLUID (BEAKER) (test hwhz=656) 2990 /cu mm <=1 ADJUSTED WBC FLUID (BEAKER) (test uqlb=7390) 130 /cu mm <=5 LINING CELLS (BEAKER) (test mqpm=9736) 0 /cu mm <=1 NEUTROPHILS FLUID (BEAKER) (test ydhq=1970) 12 % LYMPHS FLUID (BEAKER) (test cdac=560) 79 % MONO/MACROPHAGE FLUID (BEAKER) (test dibq=013) 9 % EOSINOPHILS FLUID (BEAKER) (test liyt=011) 0 % BASO FLUID (BEAKER) (test hegs=748) 0 % CONTAINER BODY FLUID (BEAKER) (test vzgc=4168) EDTA Tube LACTATE DEHYDROGENASE (LDH), BODY [id number] 17:26:00 Test Item Value Reference Range Comments LACTATE DEHYDROGENASE FLUID (BEAKER) < U/L Light's criteria identifies (test slwj=802) effusions if one or more are pre Absence of reference range indicates that normals have not been defined.Assay performance has not been validated for this type of specimen.PROTEIN, BODY [id number] 17:26:00 Test Item Value Reference Range Comments PROTEIN FLUID (BEAKER) (test 2.4 g/dL Light's criteria identifies qiie=561) effusions if one or more are pre Absence of reference range indicates that normals have not been defined.Assay performance has not been validated for this type of specimen.POCT-GLUCOSE [id number] 17:08:00 Test Item Value Reference Range Comments POC-GLUCOSE METER (BEAKER) 148 mg/dL 70-110 TESTED AT [address] (test oyou=6945) [facility] [address] RAD, CHEST, 1 VIEW, NON [id number] 16:17:00Reason for exam:->s/p right thoracentesisShould this be [...] seen in the spine. Signed: Ilia Rodriguez MDReport Verified Date /Time: 08/21/2018 16:17:23 Reading Location: [facility] Radiology Reading Room POCT-GLUCOSE [id number] 12:51:00 Test Item Value Reference Range Comments POC-GLUCOSE METER (BEAKER) 133 mg/dL 70-110 TESTED AT [address] (test khrg=6109) [facility] [address] TACROLIMUS [id number] 10:14:00 Test Item Value Reference Range Comments TACROLIMUS BLOOD (BEAKER) (test cjna=050) 7.6 ng/mL 10.0-20.0 Please draw 30 min prior to AM dose. Thanks!POCT-GLUCOSE [id number] 09:34: 00 Test Item Value Reference Range Comments POC-GLUCOSE METER (BEAKER) 108 mg/dL 70-110 TESTED AT [address] (test aokw=7117) [place] [id number] POCT-GLUCOSE [id number] 08:41:00 Test Item Value Reference Range Comments POC-GLUCOSE METER (BEAKER) 45 mg/dL 70-110 TESTED AT [address] (test wpjb=8867) [place] [id number] POCT-GLUCOSE [id number] 08:22:00 Test Item Value Reference Range Comments POC-GLUCOSE METER (BEAKER) 37 mg/dL 70-110 TESTED AT [address] (test sala=8381) [place] [id number] COMPREHENSIVE METABOLIC [id number] 06:29:00 Test Item Value Reference Range Comments TOTAL PROTEIN (BEAKER) 6.4 gm/dL 6.0-8.3 (test xckz=964) ALBUMIN (BEAKER) (test 2.9 g/dL 3.5-5.0 supl=6958) ALKALINE PHOSPHATASE 82 U/L 40-150 (BEAKER) (test wlxb=541) BILIRUBIN TOTAL (BEAKER) 0.6 mg/dL 0.2-1.2 (test zeyl=040) SODIUM (BEAKER) (test 135 meq/L 136-145 endw=174) POTASSIUM (BEAKER) (test 4.7 meq/L 3.5-5.1 ppjm=341) CHLORIDE (BEAKER) (test 107 meq/L 98-107 bofn=476) CO2 (BEAKER) (test 22 meq/L 22-29 ykxk=511) BLOOD UREA NITROGEN 47 mg/dL 7-21 (BEAKER) (test fdlh=609) CREATININE (BEAKER) (test 3.18 mg/dL 0.57-1.25 fvwf=012) GLUCOSE RANDOM (BEAKER) 65 mg/dL 70-105 (test jvjr=145) CALCIUM (BEAKER) (test 8.1 mg/dL 8.4-10.2 hptm=696) AST (SGOT) (BEAKER) (test 25 U/L 5-34 vqpd=090) ALT (SGPT) (BEAKER) (test 22 U/L 6-55 qqmn=444) EGFR (BEAKER) (test 15 mL/min/1.73 sq m ESTIMATED GFR IS NOT sjch=7406) ACCURATE CREATININE CLEARANCE IN PREDICTING GLOMERULAR FILTRATION RATE. ESTIMATED GFR IS NOT APPLICABLE FOR DIALYSIS PATIENTS. [id number] 06:18:00 Test Item Value Reference Range Comments MAGNESIUM (BEAKER) (test euiu=065) 2.5 mg/dL 1.6-2.6 CBC (HEMOGRAM ONLY)2018-08-21 05:53:00 Test Item Value Reference Range Comments WHITE BLOOD CELL COUNT (BEAKER) (test sfwl=925) 3.4 K/ L 3.5-10.5 RED BLOOD CELL COUNT (BEAKER) (test zokg=950) 2.81 M/ L 3.93-5.22 HEMOGLOBIN (BEAKER) (test yojm=375) 7.1 GM/DL 11.2-15.7 HEMATOCRIT (BEAKER) (test pkql=854) 23.2 % 34.1-44.9 MEAN CORPUSCULAR VOLUME (BEAKER) (test lnab=550) 82.6 fL 79.4-94.8 MEAN CORPUSCULAR HEMOGLOBIN (BEAKER) (test 25.3 pg 25.6-32.2 ajsp=431) MEAN CORPUSCULAR HEMOGLOBIN CONC (BEAKER) (test 30.6 GM/DL 32.2-35.5 hcdq=646) RED CELL DISTRIBUTION WIDTH (BEAKER) (test 14.2 % 11.7-14.4 illv=524) PLATELET COUNT (BEAKER) (test wjbo=975) 153 K/CU MM 150-450 MEAN PLATELET VOLUME (BEAKER) (test srmw=150) 9.5 fL 9.4-12.3 NUCLEATED RED BLOOD CELLS (BEAKER) (test 0 /100 WBC 0-0 znwl=069) POCT-GLUCOSE [id number] 21:32:00 Test Item Value Reference Range Comments POC-GLUCOSE METER (BEAKER) 197 mg/dL 70-110 TESTED AT [facility] [address] [facility] (test pjyu=7403) [facility] [address] PH, BODY [id number] 19:33:00 Test Item Value Reference Range Comments PH, BODY FLUID (BEAKER) (test rloj=8135) 7.75 ALBUMIN, BODY [id number] 19:29:00 Test Item Value Reference Range Comments ALBUMIN FLUID (BEAKER) (test wnuw=935) 1.5 gm/dL Reference Range: No Normals Assay performance has not been validated for this type of specimen.BODY FLUID CELL COUNT WITH [id number] 19:26:00 Test Item Value Reference Range Comments APPEARANCE FLUID (BEAKER) (test rzef=033) Hazy Clear COLOR FLUID (BEAKER) (test bitx=594) Straw Colorless, Straw RBC FLUID (BEAKER) (test iett=583) 3000 /cu mm <=1 ADJUSTED WBC FLUID (BEAKER) (test vbln=3385) 767 /cu mm <=5 LINING CELLS (BEAKER) (test drec=7539) 0 /cu mm <=1 NEUTROPHILS FLUID (BEAKER) (test gxwz=7311) 6 % LYMPHS FLUID (BEAKER) (test foue=751) 75 % MONO/MACROPHAGE FLUID (BEAKER) (test gnux=278) 19 % EOSINOPHILS FLUID (BEAKER) (test siqb=869) 0 % BASO FLUID (BEAKER) (test cfdn=820) 0 % CONTAINER BODY FLUID (BEAKER) (test qroj=2653) EDTA Tube LACTATE DEHYDROGENASE (LDH), BODY [id number] 19:22:00 Test Item Value Reference Range Comments LACTATE DEHYDROGENASE FLUID (BEAKER) < U/L Light's criteria identifies (test ueev=638) effusions if one or more are pre Absence of reference range indicates that normals have not been defined.Assay performance has not been validated for this type of specimen.PROTEIN, BODY [id number] 19:22:00 Test Item Value Reference Range Comments PROTEIN FLUID (BEAKER) (test 3.0 g/dL Light's criteria identifies tnpe=026) effusions if one or more are pre Absence of reference range indicates that normals have not been defined.Assay performance has not been validated for this type of specimen.TRIGLYCERIDES, BODY [id number] 19:22:00 Test Item Value Reference Range Comments TRIGLYCERIDES FLUID (BEAKER) (test sbty=217) 32 mg/dL Reference Range: No Normals Assay performance has not been validated for this type of specimen.RAD, CHEST, 1 VIEW, NON [id number] 19:16:00Reason for exam: ->left thoracentesisShould this be performed at the bedside?->YesFINAL REPORT Chest, 1 view Clinical history: left thoracentesis Comparison: 08/18/2018 Discussion: Status post left thoracentesis without pneumothorax. Interval decrease in left pleural effusion. Again seen is a layering right pleural effusion. The cardiac silhouette is enlargedwith perihilar pulmonary edema. No acute osseous abnormality is seen. Signed: Bud Wong Verified Date/Time: 08/20/2018 19:16:27 Reading Location: [facility] C013X Ortho Consult Reading Room U/S, [id number] 18:21:00Laterality?-> LeftReason for exam:->pleural effusionFINAL REPORT PROCEDURE: Ultrasound-guided thoracentesis INDICATION: 63-year-old woman with left pleural effusion. DESCRIPTION: After obtaining informed written consent, ultrasound scan showed pleural effusion on the left. The overlying skin was prepped and draped in the usual, sterile fashion and local 2% lidocaine anesthesia was administered. A 4 Italian catheter was advanced into the pleural cavity and 1200 cc of serous fluid was removed. The catheter was removed without immediate complication. Samples were sent for analysis. IMPRESSION: Uncomplicated ultrasound-guided left thoracentesis with 1200 cc fluid removed. Signed: Bello Sauceda Verified Date/Time: 08/20/2018 18:21:53 Reading Location: [facility] P006J Ultrasound Reading Room POCT-GLUCOSE [id number] 11:46:00 Test Item Value Reference Range Comments POC-GLUCOSE METER (BEAKER) 173 mg/dL 70-110 TESTED AT [address] (test rhfs=3185) [facility] [address] [id number] 10:26:00 Test Item Value Reference Range Comments PROTIME (BEAKER) (test tqqf=754) 14.1 seconds 11.9-14.2 INR (BEAKER) (test rjzx=987) 1.2 <=5.9 PARTIAL THROMBOPLASTIN TIME (BEAKER) (test 39.4 seconds 22.5-36.0 rsvb=509) Effective 08/20/2018: PT Reference Range ChangeNew: 11.9-14.2 Previous: 11.7- 14.7RECOMMENDED COUMADIN/WARFARIN INR THERAPY RANGESSTANDARD DOSE: 2.0-3.0 Includes: PROPHYLAXIS for venous thrombosis, systemic embolization; TREATMENT for venous thrombosis and/or pulmonary embolus.HIGH RISK: Target INR is2.5-3.5 for patients wiht mechanical heart valves.TACROLIMUS [id number] 10:20:00 Test Item Value Reference Range Comments TACROLIMUS BLOOD (BEAKER) (test ptqu=007) 7.2 ng/mL 10.0-20.0 Please draw 30 min prior to AM dose. Thanks!POCT-GLUCOSE [id number] 08:05: 00 Test Item Value Reference Range Comments POC-GLUCOSE METER (BEAKER) 64 mg/dL 70-110 TESTED AT [facility] [address] [place] [address] (test rnkn=2375) [facility] [address] CBC W/PLT COUNT & AUTO [id number] 07:03:00 Test Item Value Reference Range Comments WHITE BLOOD CELL COUNT (BEAKER) (test uaqf=690) 4.2 K/ L 3.5-10.5 RED BLOOD CELL COUNT (BEAKER) (test ciuz=305) 3.03 M/ L 3.93-5.22 HEMOGLOBIN (BEAKER) (test kxlc=395) 7.7 GM/DL 11.2-15.7 HEMATOCRIT (BEAKER) (test wmdy=710) 24.9 % 34.1-44.9 MEAN CORPUSCULAR VOLUME (BEAKER) (test hwvf=555) 82.2 fL 79.4-94.8 MEAN CORPUSCULAR HEMOGLOBIN (BEAKER) (test 25.4 pg 25.6-32.2 czoq=002) MEAN CORPUSCULAR HEMOGLOBIN CONC (BEAKER) (test 30.9 GM/DL 32.2-35.5 xkua=343) RED CELL DISTRIBUTION WIDTH (BEAKER) (test 14.1 % 11.7-14.4 mgbr=854) PLATELET COUNT (BEAKER) (test vsag=078) 177 K/CU MM 150-450 MEAN PLATELET VOLUME (BEAKER) (test mwkn=066) 9.8 fL 9.4-12.3 NUCLEATED RED BLOOD CELLS (BEAKER) (test 0 /100 WBC 0-0 bjvu=393) NEUTROPHILS RELATIVE PERCENT (BEAKER) (test 45 % omqf=371) LYMPHOCYTES RELATIVE PERCENT (BEAKER) (test 38 % qdxc=602) MONOCYTES RELATIVE PERCENT (BEAKER) (test 14 % xemt=453) EOSINOPHILS RELATIVE PERCENT (BEAKER) (test 3 % mouj=030) BASOPHILS RELATIVE PERCENT (BEAKER) (test 1 % wfky=106) NEUTROPHILS ABSOLUTE COUNT (BEAKER) (test 1.85 K/ L 1.56-6.13 tdhv=422) LYMPHOCYTES ABSOLUTE COUNT (BEAKER) (test 1.56 K/ L 1.18-3.74 comg=844) MONOCYTES ABSOLUTE COUNT (BEAKER) (test 0.58 K/ L 0.24-0.36 ymlt=374) EOSINOPHILS ABSOLUTE COUNT (BEAKER) (test 0.11 K/ L 0.04-0.36 ysqh=490) BASOPHILS ABSOLUTE COUNT (BEAKER) (test 0.02 K/ L 0.01-0.08 xsdo=096) IMMATURE GRANULOCYTES-RELATIVE PERCENT (BEAKER) 1 % 0-1 (test ybzc=2097) BASIC METABOLIC [id number] 06:57:00 Test Item Value Reference Range Comments SODIUM (BEAKER) (test 138 meq/L 136-145 xlgz=898) POTASSIUM (BEAKER) (test 4.5 meq/L 3.5-5.1 bblc=709) CHLORIDE (BEAKER) (test 108 meq/L 98-107 jrmh=948) CO2 (BEAKER) (test 23 meq/L 22-29 fctn=512) BLOOD UREA NITROGEN 48 mg/dL 7-21 (BEAKER) (test dhzu=046) CREATININE (BEAKER) (test 2.81 mg/dL 0.57-1.25 stej=867) GLUCOSE RANDOM (BEAKER) 36 mg/dL 70-105 (test hlle=163) CALCIUM (BEAKER) (test 8.4 mg/dL 8.4-10.2 dtpg=540) EGFR (BEAKER) (test 17 mL/min/1.73 sq m ESTIMATED GFR IS NOT anfb=9823) ACCURATE CREATININE CLEARANCE IN PREDICTING GLOMERULAR FILTRATION RATE. ESTIMATED GFR IS NOT APPLICABLE FOR DIALYSIS PATIENTS. [id number] 06:44:00 Test Item Value Reference Range Comments MAGNESIUM (BEAKER) (test mwyr=293) 2.5 mg/dL 1.6-2.6 POCT-GLUCOSE [id number] 22:17:00 Test Item Value Reference Range Comments POC-GLUCOSE METER (BEAKER) 131 mg/dL 70-110 TESTED AT [address] (test wxof=4990) [place] [id number] POCT-GLUCOSE [id number] 16:56:00 Test Item Value Reference Range Comments POC-GLUCOSE METER (BEAKER) 124 mg/dL 70-110 TESTED AT [address] (test xxkw=1144) [facility] [address] POCT-GLUCOSE [id number] 13:01:00 Test Item Value Reference Range Comments POC-GLUCOSE METER (BEAKER) 101 mg/dL 70-110 TESTED AT [address] (test zblg=1737) [place] [address] TACROLIMUS [id number] 08:59:00 Test Item Value Reference Range Comments TACROLIMUS BLOOD (BEAKER) (test tszl=276) 5.4 ng/mL 10.0-20.0 Please draw 30 min prior to AM dose. Thanks!POCT-GLUCOSE [id number] 08:57: 00 Test Item Value Reference Range Comments POC-GLUCOSE METER (BEAKER) 125 mg/dL 70-110 TESTED AT [address] (test wxgp=6254) [place] [id number] POCT-GLUCOSE [id number] 08:30:00 Test Item Value Reference Range Comments POC-GLUCOSE METER (BEAKER) 48 mg/dL 70-110 TESTED AT [address] (test fdsw=6004) [facility] [address] COMPREHENSIVE METABOLIC [id number] 06:46:00 Test Item Value Reference Range Comments TOTAL PROTEIN (BEAKER) 6.8 gm/dL 6.0-8.3 (test ypxu=927) ALBUMIN (BEAKER) (test 3.1 g/dL 3.5-5.0 owaa=3281) ALKALINE PHOSPHATASE 84 U/L 40-150 (BEAKER) (test blun=038) BILIRUBIN TOTAL (BEAKER) 0.7 mg/dL 0.2-1.2 (test lnai=421) SODIUM (BEAKER) (test 136 meq/L 136-145 cxua=819) POTASSIUM (BEAKER) (test 4.1 meq/L 3.5-5.1 quvd=813) CHLORIDE (BEAKER) (test 107 meq/L 98-107 tcnw=702) CO2 (BEAKER) (test 23 meq/L 22-29 gpwf=196) BLOOD UREA NITROGEN 47 mg/dL 7-21 (BEAKER) (test wyte=854) CREATININE (BEAKER) (test 2.78 mg/dL 0.57-1.25 nies=534) GLUCOSE RANDOM (BEAKER) 41 mg/dL 70-105 (test tjpc=784) CALCIUM (BEAKER) (test 8.2 mg/dL 8.4-10.2 xnxt=495) AST (SGOT) (BEAKER) (test 24 U/L 5-34 nwxm=551) ALT (SGPT) (BEAKER) (test 18 U/L 6-55 paiq=715) EGFR (BEAKER) (test 17 mL/min/1.73 sq m ESTIMATED GFR IS NOT sqmf=7449) ACCURATE CREATININE CLEARANCE IN PREDICTING GLOMERULAR FILTRATION RATE. ESTIMATED GFR IS NOT APPLICABLE FOR DIALYSIS PATIENTS. CBC (HEMOGRAM ONLY)2018-08-19 06:29:00 Test Item Value Reference Range Comments WHITE BLOOD CELL COUNT (BEAKER) (test hjsr=495) 4.1 K/ L 3.5-10.5 RED BLOOD CELL COUNT (BEAKER) (test xmsp=223) 2.99 M/ L 3.93-5.22 HEMOGLOBIN (BEAKER) (test cmxo=141) 7.5 GM/DL 11.2-15.7 HEMATOCRIT (BEAKER) (test jilp=736) 24.7 % 34.1-44.9 MEAN CORPUSCULAR VOLUME (BEAKER) (test eyxu=144) 82.6 fL 79.4-94.8 MEAN CORPUSCULAR HEMOGLOBIN (BEAKER) (test 25.1 pg 25.6-32.2 qiwz=579) MEAN CORPUSCULAR HEMOGLOBIN CONC (BEAKER) (test 30.4 GM/DL 32.2-35.5 nane=632) RED CELL DISTRIBUTION WIDTH (BEAKER) (test 14.1 % 11.7-14.4 kxgs=523) PLATELET COUNT (BEAKER) (test zriw=052) 167 K/CU MM 150-450 MEAN PLATELET VOLUME (BEAKER) (test bjfl=412) 9.6 fL 9.4-12.3 NUCLEATED RED BLOOD CELLS (BEAKER) (test 0 /100 WBC 0-0 iwoi=857) U/S, ABDOMINAL, [id number] 03:23:00Abdomen limited area? Add comment if clarification [...] volume right pleural effusion. Signed: [facility] Verified Date/Time:08/19/2018 03: 23:10 Reading Location: [facility] C013T Transitional Reading Room POCT-GLUCOSE [id number] 22:31:00 Test Item Value Reference Range Comments POC-GLUCOSE METER (BEAKER) 123 mg/dL 70-110 TESTED AT [address] (test vkdr=2695) [facility] [address] POCT-GLUCOSE [id number] 18:04:00 Test Item Value Reference Range Comments POC-GLUCOSE METER (BEAKER) 138 mg/dL 70-110 TESTED AT [address] (test vqcg=0404) [facility] [address] RAD, CHEST, 2 [id number] 13:39:00Reason for exam:->bilateral effusions, dyspneaFINAL REPORT INDICATION: [...] Davis Verified Date/Time: 08/18/2018 13:39:03 Reading Location: [facility] C013V Neuro Reading Room POCT-GLUCOSE [id number] 12:06: 00 Test Item Value Reference Range Comments POC-GLUCOSE METER (BEAKER) 116 mg/dL 70-110 TESTED AT [address] (test wajr=9609) [facility] [address] TACROLIMUS [id number] 09:28:00 Test Item Value Reference Range Comments TACROLIMUS BLOOD (BEAKER) (test upip=472) 5.1 ng/mL 10.0-20.0 Please draw 30 min prior to AM dose. Thanks!HEMOGLOBIN [id number] 08:28:00 Test Item Value Reference Range Comments HEMOGLOBIN A1C (BEAKER) (test krhb=691) 5.5 % 4.3-6.1 POCT-GLUCOSE [id number] 08:07:00 Test Item Value Reference Range Comments POC-GLUCOSE METER (BEAKER) 111 mg/dL 70-110 TESTED AT [facility] [address] [facility] (test xmog=5403) [facility] [address] COMPREHENSIVE METABOLIC [id number] 07:18:00 Test Item Value Reference Range Comments TOTAL PROTEIN (BEAKER) 6.7 gm/dL 6.0-8.3 (test vpwf=224) ALBUMIN (BEAKER) (test 3.0 g/dL 3.5-5.0 yzlv=7754) ALKALINE PHOSPHATASE 85 U/L 40-150 (BEAKER) (test xqqr=251) BILIRUBIN TOTAL (BEAKER) 0.8 mg/dL 0.2-1.2 (test aqjv=164) SODIUM (BEAKER) (test 136 meq/L 136-145 mdma=717) POTASSIUM (BEAKER) (test 4.1 meq/L 3.5-5.1 qmja=083) CHLORIDE (BEAKER) (test 106 meq/L 98-107 czro=396) CO2 (BEAKER) (test 22 meq/L 22-29 msoq=501) BLOOD UREA NITROGEN 50 mg/dL 7-21 (BEAKER) (test ihxo=244) CREATININE (BEAKER) (test 2.83 mg/dL 0.57-1.25 gfgg=220) GLUCOSE RANDOM (BEAKER) 85 mg/dL 70-105 (test wtjp=853) CALCIUM (BEAKER) (test 8.2 mg/dL 8.4-10.2 brpk=694) AST (SGOT) (BEAKER) (test 26 U/L 5-34 jmyu=154) ALT (SGPT) (BEAKER) (test 20 U/L 6-55 shol=069) EGFR (BEAKER) (test 17 mL/min/1.73 sq m ESTIMATED GFR IS NOT ldoo=9366) ACCURATE CREATININE CLEARANCE IN PREDICTING GLOMERULAR FILTRATION RATE. ESTIMATED GFR IS NOT APPLICABLE FOR DIALYSIS PATIENTS. CBC (HEMOGRAM ONLY)2018-08-18 06:27:00 Test Item Value Reference Range Comments WHITE BLOOD CELL COUNT (BEAKER) (test gblp=409) 3.9 K/ L 3.5-10.5 RED BLOOD CELL COUNT (BEAKER) (test hkaz=755) 2.86 M/ L 3.93-5.22 HEMOGLOBIN (BEAKER) (test qyay=635) 7.2 GM/DL 11.2-15.7 HEMATOCRIT (BEAKER) (test aood=631) 23.7 % 34.1-44.9 MEAN CORPUSCULAR VOLUME (BEAKER) (test xmvc=705) 82.9 fL 79.4-94.8 MEAN CORPUSCULAR HEMOGLOBIN (BEAKER) (test 25.2 pg 25.6-32.2 zahp=235) MEAN CORPUSCULAR HEMOGLOBIN CONC (BEAKER) (test 30.4 GM/DL 32.2-35.5 fdga=193) RED CELL DISTRIBUTION WIDTH (BEAKER) (test 14.1 % 11.7-14.4 vyki=277) PLATELET COUNT (BEAKER) (test cqcr=896) 157 K/CU MM 150-450 MEAN PLATELET VOLUME (BEAKER) (test kxbe=976) 9.8 fL 9.4-12.3 NUCLEATED RED BLOOD CELLS (BEAKER) (test 0 /100 WBC 0-0 jpmv=540) POCT-GLUCOSE [id number] 17:32:00 Test Item Value Reference Range Comments POC-GLUCOSE METER (BEAKER) 91 mg/dL 70-110 TESTED AT [facility] [address] [facility] (test ynjo=9302) [facility] [address] CT, CHEST, WITHOUT [id number] 16:51:00FINAL REPORT INDICATION: Shortness of breath. COMPARISON:None. [...] Verified Date/Time: 08/17/2018 16: 51:05 Reading Location: [facility] [address] Body Reading Room POCT-GLUCOSE [id number] 16:23:00 Test Item Value Reference Range Comments POC-GLUCOSE METER (BEAKER) 46 mg/dL 70-110 TESTED AT [facility] [address] [facility] (test iktz=8305) [facility] [address] B-TYPE NATRIURETIC FACTOR (BNP)2018-08-17 15:08:00 Test Item Value Reference Range Comments B-TYPE NATRIURETIC PEPTIDE (BEAKER) (test 549 pg/mL 0-100 imhg=787) URINALYSIS WITH MICROSCOPIC IF [id number] 14:47:00 Test Item Value Reference Range Comments COLOR (BEAKER) (test qhhn=218) Light Yellow CLARITY (BEAKER) (test ymlu=180) Clear SPECIFIC GRAVITY UA (BEAKER) (test ifih=803) 1.008 1.001-1.035 PH UA (BEAKER) (test rlqb=586) 6.5 5.0-8.0 PROTEIN UA (BEAKER) (test exmq=120) 200 mg/dL Negative GLUCOSE UA (BEAKER) (test lnsm=628) Negative Negative KETONES UA (BEAKER) (test kewk=262) Negative Negative BILIRUBIN UA (BEAKER) (test avfu=411) Negative Negative BLOOD UA (BEAKER) (test qihi=434) Negative Negative NITRITE UA (BEAKER) (test knzk=889) Negative Negative LEUKOCYTE ESTERASE UA (BEAKER) (test mqic=125) Negative Negative UROBILINOGEN UA (BEAKER) (test mgqc=050) 0.2 mg/dL 0.2-1.0 SOURCE(BEAKER) (test dtey=4176) URINALYSIS [id number] 14:47:00 Test Item Value Reference Range Comments RBC UA (BEAKER) (test ylib=950) < /HPF WBC UA (BEAKER) (test izgq=612) 1 /HPF SQUAMOUS EPITHELIAL (BEAKER) (test zvyc=659) 1 /HPF POCT-GLUCOSE [id number] 12:28:00 Test Item Value Reference Range Comments POC-GLUCOSE METER (BEAKER) 75 mg/dL 70-110 TESTED AT [address] (test hggx=8635) [facility] [id number] TACROLIMUS [id number] 09:04:00 Test Item Value Reference Range Comments TACROLIMUS BLOOD (BEAKER) (test qddp=504) 6.2 ng/mL 10.0-20.0 POCT-GLUCOSE [id number] 08:53:00 Test Item Value Reference Range Comments POC-GLUCOSE METER (BEAKER) 87 mg/dL 70-110 TESTED AT [address] (test eetr=7984) [facility] [id number] POCT-GLUCOSE [id number] 08:40:00 Test Item Value Reference Range Comments POC-GLUCOSE METER (BEAKER) 57 mg/dL 70-110 TESTED AT [address] (test tiex=7323) [facility] [id number] B-TYPE NATRIURETIC FACTOR (BNP)2018-08-17 06:16:00 Test Item Value Reference Range Comments B-TYPE NATRIURETIC PEPTIDE (BEAKER) (test 513 pg/mL 0-100 rghl=365) COMPREHENSIVE METABOLIC [id number] 06:16:00 Test Item Value Reference Range Comments TOTAL PROTEIN (BEAKER) 6.7 gm/dL 6.0-8.3 (test pgnb=133) ALBUMIN (BEAKER) (test 3.0 g/dL 3.5-5.0 cjzv=2109) ALKALINE PHOSPHATASE 84 U/L 40-150 (BEAKER) (test qtiq=147) BILIRUBIN TOTAL (BEAKER) 0.6 mg/dL 0.2-1.2 (test lmio=621) SODIUM (BEAKER) (test 137 meq/L 136-145 oabm=290) POTASSIUM (BEAKER) (test 4.1 meq/L 3.5-5.1 gydr=254) CHLORIDE (BEAKER) (test 107 meq/L 98-107 rwmr=976) CO2 (BEAKER) (test 22 meq/L 22-29 nvjj=195) BLOOD UREA NITROGEN 54 mg/dL 7-21 (BEAKER) (test tran=147) CREATININE (BEAKER) (test 2.97 mg/dL 0.57-1.25 slph=731) GLUCOSE RANDOM (BEAKER) 45 mg/dL 70-105 (test cemz=197) CALCIUM (BEAKER) (test 8.4 mg/dL 8.4-10.2 bxwo=117) AST (SGOT) (BEAKER) (test 22 U/L 5-34 zcdd=600) ALT (SGPT) (BEAKER) (test 16 U/L 6-55 aueh=406) EGFR (BEAKER) (test 16 mL/min/1.73 sq m ESTIMATED GFR IS NOT wzim=2488) ACCURATE CREATININE CLEARANCE IN PREDICTING GLOMERULAR FILTRATION RATE. ESTIMATED GFR IS NOT APPLICABLE FOR DIALYSIS PATIENTS. CBC W/PLT COUNT & AUTO [id number] 05:51:00 Test Item Value Reference Range Comments WHITE BLOOD CELL COUNT (BEAKER) (test lhjj=024) 3.4 K/ L 3.5-10.5 RED BLOOD CELL COUNT (BEAKER) (test fkwh=417) 2.93 M/ L 3.93-5.22 HEMOGLOBIN (BEAKER) (test phrn=753) 7.3 GM/DL 11.2-15.7 HEMATOCRIT (BEAKER) (test qurn=406) 23.8 % 34.1-44.9 MEAN CORPUSCULAR VOLUME (BEAKER) (test ipwn=586) 81.2 fL 79.4-94.8 MEAN CORPUSCULAR HEMOGLOBIN (BEAKER) (test 24.9 pg 25.6-32.2 plbe=045) MEAN CORPUSCULAR HEMOGLOBIN CONC (BEAKER) (test 30.7 GM/DL 32.2-35.5 aote=970) RED CELL DISTRIBUTION WIDTH (BEAKER) (test 14.1 % 11.7-14.4 fjkg=527) PLATELET COUNT (BEAKER) (test wzlf=207) 173 K/CU MM 150-450 MEAN PLATELET VOLUME (BEAKER) (test rcdi=415) 9.7 fL 9.4-12.3 NUCLEATED RED BLOOD CELLS (BEAKER) (test 0 /100 WBC 0-0 kcwn=157) NEUTROPHILS RELATIVE PERCENT (BEAKER) (test 51 % pfuy=019) LYMPHOCYTES RELATIVE PERCENT (BEAKER) (test 33 % cakq=470) MONOCYTES RELATIVE PERCENT (BEAKER) (test 12 % nhvy=687) EOSINOPHILS RELATIVE PERCENT (BEAKER) (test 2 % lpqz=439) BASOPHILS RELATIVE PERCENT (BEAKER) (test 1 % hbxy=493) NEUTROPHILS ABSOLUTE COUNT (BEAKER) (test 1.75 K/ L 1.56-6.13 abhi=420) LYMPHOCYTES ABSOLUTE COUNT (BEAKER) (test 1.13 K/ L 1.18-3.74 inkk=762) MONOCYTES ABSOLUTE COUNT (BEAKER) (test 0.42 K/ L 0.24-0.36 idjl=832) EOSINOPHILS ABSOLUTE COUNT (BEAKER) (test 0.07 K/ L 0.04-0.36 lumf=778) BASOPHILS ABSOLUTE COUNT (BEAKER) (test 0.02 K/ L 0.01-0.08 qzjt=070) IMMATURE GRANULOCYTES-RELATIVE PERCENT (BEAKER) 2 % 0-1 (test ptro=5587) POCT-GLUCOSE [id number] 02:09:00 Test Item Value Reference Range Comments POC-GLUCOSE METER (BEAKER) 85 mg/dL 70-110 TESTED AT [facility] [address] [place] [address] (test qfaf=6058) [facility] [address] HEPATITIS C PCR, [id number] 13:59:00 Test Item Value Reference Range Comments HCV RESULT COMPONENT (BEAKER) HCV RNA not detected HCV RNA not detected (test noyb=3154) This test uses a Real-Time Polymerase Chain Reaction (RT-PCR) methodology and was performed using LAZ Ampliprep/LAZ TaqMan HCV test kit version 2.0 ( [employer]).Reportable range for this assay is 15 - 100,000, 000 IU per mL (1.18 - 8.00 Log IU/mL).TACROLIMUS [id number] 13:46:00 Test Item Value Reference Range Comments TACROLIMUS BLOOD (BEAKER) (test rfqn=753) 9.6 ng/mL 10.0-20.0 ALPHA FETOPROTEIN (AFP), TUMOR [id number] 13:23:00 Test Item Value Reference Range Comments ALPHA-FETOPROTEIN (BEAKER) (test pzsk=2966) < ng/mL <10.0 Effective 02/09/2014: Reference Range ChangeNew: <10.0 Previous: 0.0- [id number] 13:04:00 Test Item Value Reference Range Comments PHOSPHORUS (BEAKER) (test fupc=092) 4.5 mg/dL 2.3-4.7 [id number] 13:04:00 Test Item Value Reference Range Comments MAGNESIUM (BEAKER) (test dsoa=956) 2.3 mg/dL 1.6-2.6 COMPREHENSIVE METABOLIC [id number] 13:04:00 Test Item Value Reference Range Comments TOTAL PROTEIN (BEAKER) 6.7 gm/dL 6.0-8.3 (test rmpb=939) ALBUMIN (BEAKER) (test 3.5 g/dL 3.5-5.0 gzro=9391) ALKALINE PHOSPHATASE 120 U/L 40-150 (BEAKER) (test aajl=572) BILIRUBIN TOTAL (BEAKER) 0.7 mg/dL 0.2-1.2 (test gjxf=843) SODIUM (BEAKER) (test 140 meq/L 136-145 vdhu=276) POTASSIUM (BEAKER) (test 5.1 meq/L 3.5-5.1 nxrl=536) CHLORIDE (BEAKER) (test 108 meq/L 98-107 eqkk=607) CO2 (BEAKER) (test 22 meq/L 22-29 apav=307) BLOOD UREA NITROGEN 37 mg/dL 7-21 (BEAKER) (test bryx=486) CREATININE (BEAKER) (test 1.16 mg/dL 0.57-1.25 rxyo=811) GLUCOSE RANDOM (BEAKER) 214 mg/dL 70-105 (test kgih=153) CALCIUM (BEAKER) (test 9.1 mg/dL 8.4-10.2 zruc=440) AST (SGOT) (BEAKER) (test 16 U/L 5-34 npes=940) ALT (SGPT) (BEAKER) (test 17 U/L 6-55 bsgn=863) EGFR (BEAKER) (test 47 mL/min/1.73 sq m ESTIMATED GFR IS NOT ikdb=8432) ACCURATE CREATININE CLEARANCE IN PREDICTING GLOMERULAR FILTRATION RATE. ESTIMATED GFR IS NOT APPLICABLE FOR DIALYSIS PATIENTS. LIPID [id number] 13:04:00 Test Item Value Reference Range Comments TRIGLYCERIDES (BEAKER) (test idda=950) 170 mg/dL CHOLESTEROL (BEAKER) (test jduo=488) 175 mg/dL HDL CHOLESTEROL (BEAKER) (test pphj=927) 52 mg/dL LDL CHOLESTEROL CALCULATED (BEAKER) (test 89 mg/dL apcz=478) Triglyceride Reference Range: Low Risk <150 Borderline 150- 199 High Risk 200-499 Very High Risk >=500Cholesterol Reference Range: Low Risk <200 Borderline 200-239 High Risk > 240HDL Cholesterol Reference Range: Low Risk >=60 High Risk <40LDL Cholesterol Reference Range: Optimal <100 Near Optimal 100-129 Borderline 130-159 High 160-189 Very High >=190BILIRUBIN, [id number] 13:04:00 Test Item Value Reference Range Comments BILIRUBIN DIRECT (BEAKER) (test zbcr=101) 0.2 mg/dL 0.1-0.5 CBC W/PLT COUNT & AUTO [id number] 12:37:00 Test Item Value Reference Range Comments WHITE BLOOD CELL COUNT (BEAKER) (test eyhq=302) 5.8 K/ L 4.0-10.0 RED BLOOD CELL COUNT (BEAKER) (test ktdu=195) 4.55 M/ L 4.00-5.00 HEMOGLOBIN (BEAKER) (test zoex=806) 12.6 GM/DL 12.0-15.0 HEMATOCRIT (BEAKER) (test tqcq=559) 37.1 % 36.0-45.0 MEAN CORPUSCULAR VOLUME (BEAKER) (test kond=257) 81.5 fL 82.0-99.0 MEAN CORPUSCULAR HEMOGLOBIN (BEAKER) (test 27.7 pg 27.0-33.0 rdrk=468) MEAN CORPUSCULAR HEMOGLOBIN CONC (BEAKER) (test 34.0 GM/DL 32.0-36.0 eear=900) RED CELL DISTRIBUTION WIDTH (BEAKER) (test 13.1 % 10.3-14.2 ouvw=286) PLATELET COUNT (BEAKER) (test lbjr=482) 158 K/CU MM 150-430 MEAN PLATELET VOLUME (BEAKER) (test wvpw=040) 7.3 fL 6.5-10.5 NUCLEATED RED BLOOD CELLS (BEAKER) (test 0 /100 WBC 0-0 wrtk=004) NEUTROPHILS RELATIVE PERCENT (BEAKER) (test 51 % hgic=420) LYMPHOCYTES RELATIVE PERCENT (BEAKER) (test 27 % cldl=561) MONOCYTES RELATIVE PERCENT (BEAKER) (test 21 % zrve=334) EOSINOPHILS RELATIVE PERCENT (BEAKER) (test 2 % uuoj=753) BASOPHILS RELATIVE PERCENT (BEAKER) (test 0 % cncm=034) NEUTROPHILS ABSOLUTE COUNT (BEAKER) (test 2.94 K/ L 1.80-8.00 ypce=685) LYMPHOCYTES ABSOLUTE COUNT (BEAKER) (test 1.54 K/ L 1.48-4.50 rqzu=379) MONOCYTES ABSOLUTE COUNT (BEAKER) (test 1.19 K/ L 0.00-1.30 arvc=786) EOSINOPHILS ABSOLUTE COUNT (BEAKER) (test 0.10 K/ L 0.00-0.50 rkgz=033) BASOPHILS ABSOLUTE COUNT (BEAKER) (test 0.02 K/ L 0.00-0.20 svjo=854) 0.00POCT-GLUCOSE [id number] 13:29:00 Test Item Value Reference Range Comments POC-GLUCOSE METER (BEAKER) 77 mg/dL 70-110 TESTED AT [address] (test ijsy=4455) [place] [id number] POCT-GLUCOSE [id number] 13:28:00 Test Item Value Reference Range Comments POC-GLUCOSE METER (BEAKER) 100 mg/dL 70-110 TESTED AT [address] (test zewu=0766) [place] [id number] POCT-GLUCOSE [id number] 12:04:00 Test Item Value Reference Range Comments POC-GLUCOSE METER (BEAKER) 69 mg/dL 70-110 TESTED AT [address] (test aygs=8182) [place] [id number] CREATINE KINASE (CK), TOTAL AND [id number] 09:47:00 Test Item Value Reference Range Comments CREATINE KINASE TOTAL (BEAKER) (test rdqc=677) 38 U/L 29-200 CREATINE KINASE-MB (BEAKER) (test msud=412) 1.1 ng/mL 0.0-6.6 CREATINE KINASE-MB INDEX (BEAKER) (test gdmu=428) 2.9 % Effective 02/09/2014: CK-MB Reference Range ChangeNew: 0.0-6.6 Previous: 0.0- 4.9CK-MB Reference Range:<6.7 Normal6.7-10.0 Borderline>10.0 AbnormalTACROLIMUS [id number] 09:04:00 Test Item Value Reference Range Comments TACROLIMUS BLOOD (BEAKER) (test mmez=985) 9.5 ng/mL 10.0-20.0 TROPONIN [id number] 08:43:00 Test Item Value Reference Range Comments TROPONIN I (BEAKER) (test zxbp=098) 0.01 ng/mL 0.00-0.03 Effective 02/09/2014: Reference Range [...] acute neurological disease, and persistent tachyarrhythmia.HEPATIC FUNCTION [id number] 05:43:00 Test Item Value Reference Range Comments TOTAL PROTEIN (BEAKER) (test mznx=537) 6.0 gm/dL 6.0-8.3 ALBUMIN (BEAKER) (test quai=6604) 3.3 g/dL 3.5-5.0 BILIRUBIN TOTAL (BEAKER) (test fevv=330) 1.0 mg/dL 0.2-1.2 BILIRUBIN DIRECT (BEAKER) (test mpfk=134) 0.3 mg/dL 0.1-0.5 ALKALINE PHOSPHATASE (BEAKER) (test wvot=400) 87 U/L 40-150 AST (SGOT) (BEAKER) (test dckm=719) 13 U/L 5-34 ALT (SGPT) (BEAKER) (test eqgt=546) 10 U/L 6-55 BASIC METABOLIC [id number] 05:43:00 Test Item Value Reference Range Comments SODIUM (BEAKER) (test 141 meq/L 136-145 dqve=620) POTASSIUM (BEAKER) (test 4.6 meq/L 3.5-5.1 myfo=681) CHLORIDE (BEAKER) (test 113 meq/L 98-107 twla=787) CO2 (BEAKER) (test 23 meq/L 22-29 kber=209) BLOOD UREA NITROGEN 19 mg/dL 7-21 (BEAKER) (test qmdb=680) CREATININE (BEAKER) (test 0.87 mg/dL 0.57-1.25 fiou=858) GLUCOSE RANDOM (BEAKER) 76 mg/dL 70-105 (test ekuw=851) CALCIUM (BEAKER) (test 8.8 mg/dL 8.4-10.2 wpos=232) EGFR (BEAKER) (test 66 mL/min/1.73 sq m ESTIMATED GFR IS NOT zsfh=6822) ACCURATE CREATININE CLEARANCE IN PREDICTING GLOMERULAR FILTRATION RATE. ESTIMATED GFR IS NOT APPLICABLE FOR DIALYSIS PATIENTS. CBC W/PLT COUNT & AUTO [id number] 05:33:00 Test Item Value Reference Range Comments WHITE BLOOD CELL COUNT (BEAKER) (test qlyp=091) 4.3 K/ L 4.0-10.0 RED BLOOD CELL COUNT (BEAKER) (test vfcg=224) 4.27 M/ L 4.00-5.00 HEMOGLOBIN (BEAKER) (test iikg=856) 11.8 GM/DL 12.0-15.0 HEMATOCRIT (BEAKER) (test kqzv=192) 33.3 % 36.0-45.0 MEAN CORPUSCULAR VOLUME (BEAKER) (test ogjj=230) 77.8 fL 82.0-99.0 MEAN CORPUSCULAR HEMOGLOBIN (BEAKER) (test 27.6 pg 27.0-33.0 yaqj=912) MEAN CORPUSCULAR HEMOGLOBIN CONC (BEAKER) (test 35.5 GM/DL 32.0-36.0 rxdm=168) RED CELL DISTRIBUTION WIDTH (BEAKER) (test 14.4 % 10.3-14.2 pbat=403) PLATELET COUNT (BEAKER) (test adbq=122) 136 K/CU MM 150-430 MEAN PLATELET VOLUME (BEAKER) (test juji=123) 7.0 fL 6.5-10.5 NUCLEATED RED BLOOD CELLS (BEAKER) (test 0 /100 WBC 0-0 xbgv=357) NEUTROPHILS RELATIVE PERCENT (BEAKER) (test 47 % havp=637) LYMPHOCYTES RELATIVE PERCENT (BEAKER) (test 34 % irsb=587) MONOCYTES RELATIVE PERCENT (BEAKER) (test 16 % urhs=955) EOSINOPHILS RELATIVE PERCENT (BEAKER) (test 2 % nwuy=119) BASOPHILS RELATIVE PERCENT (BEAKER) (test 1 % wrnw=203) NEUTROPHILS ABSOLUTE COUNT (BEAKER) (test 2.00 K/ L 1.80-8.00 xpjg=291) LYMPHOCYTES ABSOLUTE COUNT (BEAKER) (test 1.47 K/ L 1.48-4.50 nqxj=083) MONOCYTES ABSOLUTE COUNT (BEAKER) (test 0.70 K/ L 0.00-1.30 nztg=743) EOSINOPHILS ABSOLUTE COUNT (BEAKER) (test 0.09 K/ L 0.00-0.50 cejv=279) BASOPHILS ABSOLUTE COUNT (BEAKER) (test 0.04 K/ L 0.00-0.20 iphf=891) 0.00TROPONIN [id number] 22:47:00 Test Item Value Reference Range Comments TROPONIN I (BEAKER) (test bzkm=581) < ng/mL 0.00-0.03 Effective 02/09/2014: Reference Range [...] acidosis, acute neurological disease, and persistent tachyarrhythmia.POCT-GLUCOSE [id number] 21:47:00 Test Item Value Reference Range Comments POC-GLUCOSE METER (AKER) 183 mg/dL 70-110 TESTED AT [facility] [address] [facility] (test ihom=8751) [facility] [address] CREATINE KINASE (CK), TOTAL AND [id number] 16:27:00 Test Item Value Reference Range Comments CREATINE KINASE TOTAL (BEAKER) (test aent=728) 36 U/L 29-200 CREATINE KINASE-MB (BEAKER) (test eaol=980) 1.4 ng/mL 0.0-6.6 CREATINE KINASE-MB INDEX (BEAKER) (test yupr=421) 3.9 % Effective 02/09/2014: CK-MB Reference Range ChangeNew: 0.0-6.6 Previous: 0.0- 4.9CK-MB Reference Range:<6.7 Normal6.7-10.0 Borderline>10.0 AbnormalTROPONIN [id number] 16:27:00 Test Item Value Reference Range Comments TROPONIN I (RAJI) (test nziu=860) < ng/mL 0.00-0.03 Effective 02/09/2014: Reference Range [...] acidosis, acute neurological disease, and persistent tachyarrhythmia.POCT-GLUCOSE [id number] 16:09:00 Test Item Value Reference Range Comments POC-GLUCOSE METER (RAJI) 95 mg/dL 70-110 TESTED AT [place] [address] [address] (test rzar=6213) [facility] [address]
[2018-10-17 15:35] LABS: Basophils % 1.2 % (0-1.3); Hematocrit 35.1 % (36.0-45.0); MPV 7.8 fL (7.6-11.3); RBC Red Blood Cell Count 4.38 M/uL (3.86-4.86)
[2018-10-17 15:36] LABS: Protime INR 1.06
[2018-10-17 15:50] LABS: ALT/SGPT 35 U/L (12-78); AST/SGOT 25 U/L (15-37); Albumin 3.2 g/dL (3.4-5.0); Alkaline Phosphatase 125 U/L (45-117); BUN Blood Urea Nitrogen 26 mg/dL (7-18); Bicarbonate 27 mmol/L (21-32); Bilirubin Direct 0.2 mg/dL (0-0.2); Bilirubin Total 0.7 mg/dL (0.2-1.0); Glucose Level 211 mg/dL (74-106); Magnesium 2.4 mg/dL (1.8-2.4); NT PRO-BNP 6269 pg/mL (<125); Potassium 3.8 mmol/L (3.5-5.1); Sodium Level 137 mmol/L (136-145); Troponin (Emerg Dept Use Only) < 0.02 ng/mL (0.0-0.045)
[2018-10-17 16:09] LABS: Blood Morphology Comment NOT SEEN (NOT SEEN); Platelet Estimate ADEQ
--- NOTE | 2018-10-17 16:31 | RAD REPORT ---
EXAM DESCRIPTION: RAD - Chest Single View - 10/17/2018 4:07 pm CLINICAL HISTORY: Chest pain COMPARISON: September 03, 2018 TECHNIQUE: AP portable chest image was obtained 1605 hours . FINDINGS: Right-sided dialysis catheter has been placed since prior study. No pulmonary edema failur e or volume overload findings. Minimal left base opacification is present. Trace amount of pleural fl uid is suspected on the left. Heart size and vasculature are normal. No pneumothorax. No acute bony a bnormality seen. No acute aortic findings. Chest is substantially better than prior study. IMPRESSION: Minimal infiltrate versus atelectasis left base. Patient probably has trace pleural flui d on the left.
--- NOTE | 2018-10-17 17:20 | ER ---
Nurse's Notes [facility] Name: Lisa Ko Age: 63 yrs Sex: Female : 1955 Arrival Date: 10/17/2018 Time: 14:38 Bed 16 Private MD: Diagnosis: Other chest pain Presentation: 10/17 14:40 Presenting complaint: EMS states: jaw pain that radiates to chest while at dialysis, em chest tightness, rates pain 9/10, no SOB, weakness, given 324 ASA rates pain 6/10, had 55 minutes left of dialysis. Transition of care: patient was not received from another setting of care. Onset of symptoms was October 17, 2018. Risk Assessment: Do you want to hurt yourself or someone else? Patient reports no desire to harm self or others. Initial Sepsis Screen: Does the patient meet any 2 criteria? No. Patient's initial sepsis screen is negative. Does the patient have a suspected source of infection? No. Patient's initial sepsis screen is negative. Care prior to arrival: None. 14:40 Method Of Arrival: EMS: [facility] em 14:44 Acuity: VANDA 3 iw Historical: - Allergies: 14:47 Codeine; em 14:47 Levaquin (rash); em - Home Meds: 14:47 allopurinol 100 mg Oral tab [Active]; amlodipine 10 mg tab 1 tab once daily [Active]; em aspirin 81 mg Oral chew 1 tab once daily [Active]; atorvastatin 40 mg Oral tab 1 tab once daily [Active]; B-12 [Active]; calcium carbonate 500 mg calcium (1,250 mg) Oral tab [Active]; Fish Oil 1,000 mg Oral cap [Active]; hydralazine 25 mg Oral tab [Active]; metoprolol tartrate 100 mg Oral tab 1 tab 2 times per day [Active]; metoprolol tartrate 100 mg Oral tab 1 tab 2 times per day [Active]; tacrolimus 5 mg Oral cap every 12 hours [Active]; Toujeo SoloStar 300 unit/mL (1.5 mL) subcutaneous inpn [Active]; tramadol 50 mg Oral tab 1 tab twice a day [Active]; Vitamin D Oral [Active]; vitamin E Oral [Active]; - PMHx: 14:47 Diabetes - IDDM; Hypertension; liver cancer; liver transplant; neuropathy; TIA; em - Immunization history:: Adult Immunizations up to date. - Social history:: Smoking status: Patient/guardian denies using tobacco. - Ebola Screening: : Patient negative for fever greater than or equal to 101.5 degrees Fahrenheit, and additional compatible Ebola Virus Disease symptoms Patient denies exposure to infectious person Patient denies travel to an Ebola-affected area in the 21 days before illness onset No symptoms or risks identified at this time. Screenin:48 Abuse screen: Denies threats or abuse. Nutritional screening: No deficits noted. em Tuberculosis screening: No symptoms or risk factors identified. Fall Risk None identified. Assessment: 14:48 General: Appears in no apparent distress. comfortable, Behavior is calm, cooperative, em Denies fever. Pain: Complains of pain in jaw Pain currently is 6 out of 10 on a pain scale. Neuro: Level of Consciousness is awake, alert, obeys commands, Oriented to person, place, time, situation. Cardiovascular: Denies fatigue, nausea, shortness of breath, Capillary refill < 3 seconds Patient's skin is warm and dry. Rhythm is sinus rhythm. Respiratory: Airway is patent Respiratory effort is even, unlabored, Respiratory pattern is regular, symmetrical, Breath sounds are clear bilaterally. Denies shortness of breath. GI: Abdomen is flat, Patient currently denies nausea, vomiting. Derm: Skin is intact, is healthy with good turgor, Skin is pink, warm \T\ dry. Musculoskeletal: Capillary refill < 3 seconds, Range of motion: intact in all extremities. 15:00 Reassessment: Patient appears in no apparent distress at this time. I agree with above iw assessment by Elías Call LVN. 16:00 Reassessment: Patient appears in no apparent distress at this time. Patient and/or em family updated on plan of care and expected duration. Pain level reassessed. Patient is alert, oriented x 3, equal unlabored respirations, skin warm/dry/pink. Patient denies pain at this time. Patient states feeling better. Patient states symptoms have improved. 17:00 Reassessment: Patient appears in no apparent distress at this time. Patient and/or em family updated on plan of care and expected duration. Pain level reassessed. pt adamant on going home, reports pain chest pain has resolved. Vital Signs: 14:47 BP 144 / 78; Pulse 87; Resp 18; Temp 98.3(O); Pulse Ox 99% on R/A; Height 5 ft. 6 in. em (167.64 cm); Pain 6/10; 15:30 BP 138 / 84; Pulse 87; Resp 18; Pulse Ox 98% on R/A; em 16:26 BP 129 / 82; Pulse 84; Resp 20 S; Pulse Ox 99% on R/A; em ED Course: 14:38 Patient arrived in ED. em 14:38 Ho Restrepo PA is PHCP. [facility] 14:38 Gatito Chavez MD is Attending Physician. [facility] 14:39 Elías Call LVN is Primary Nurse. em 14:44 Triage completed. iw 14:47 Arm band placed on. em 14:48 Patient has correct armband on for positive identification. Placed in gown. Bed in low em position. Call light in reach. Adult w/ patient. clinical research analyst on. Pulse ox on. NIBP on. 14:48 Maintain EMS IV. Dressing intact. Good blood return noted. Site clean \T\ dry. Gauge \T\ em site: 20 RFA. 15:22 Initial lab(s) drawn, by pr, sent to lab. [facility] 15:38 EKG done, by heating repair technician. reviewed by Gatito Chavez MD. [facility] 16:10 XRAY Chest (1 view) In Process Unspecified. EDMS 17:41 No provider procedures requiring assistance completed. IV discontinued, intact, em bleeding controlled, No redness/swelling at site. Pressure dressing applied. Administered Medications: No medications were administered Outcome: 17:41 AMA AMA form signed em 17:41 Condition: good 17:42 Patient left the ED. em Signatures: Dispatcher [employer] EDTN Ho Restrepo PA PA [facility] Elías Call LVN MUSIC AGENT em Natalie Doe RN RN [place] [facility] Rahel Escobar [facility]
--- NOTE | 2018-10-17 17:21 | EDPHYS ---
Physician Documentation [facility] Name: Lisa Ko Age: 63 yrs Sex: Female : 1955 Arrival Date: 10/17/2018 Time: 14:38 Bed 16 Private MD: ED Physician Gatito Chavez HPI: 10/17 14:52 This 63 yrs old Female presents to ER via EMS with complaints of Chest Pain. [facility] 14:52 The patient or guardian reports chest pain that is located primarily in the substernal [facility] area. Onset: gradually, at 13:30. The pain radiates to jaw. Associated signs and symptoms: Pertinent negatives: abdominal pain, shortness of breath. The chest pain is described as aching. This is a 63 year old female with a history of dm, htn, liver cancer, liver transplant, neuropathy that presents to the ED with complaints of chest pain which radiated up her jaw bilaterally beginning while at dialysis. Patient states chest pain has resolved but continues to have bilateral jaw pain. . Historical: - Allergies: 14:47 Codeine; em 14:47 Levaquin (rash); em - Home Meds: 14:47 allopurinol 100 mg Oral tab [Active]; amlodipine 10 mg tab 1 tab once daily [Active]; em aspirin 81 mg Oral chew 1 tab once daily [Active]; atorvastatin 40 mg Oral tab 1 tab once daily [Active]; B-12 [Active]; calcium carbonate 500 mg calcium (1,250 mg) Oral tab [Active]; Fish Oil 1,000 mg Oral cap [Active]; hydralazine 25 mg Oral tab [Active]; metoprolol tartrate 100 mg Oral tab 1 tab 2 times per day [Active]; metoprolol tartrate 100 mg Oral tab 1 tab 2 times per day [Active]; tacrolimus 5 mg Oral cap every 12 hours [Active]; Toujeo SoloStar 300 unit/mL (1.5 mL) subcutaneous inpn [Active]; tramadol 50 mg Oral tab 1 tab twice a day [Active]; Vitamin D Oral [Active]; vitamin E Oral [Active]; - PMHx: 14:47 Diabetes - IDDM; Hypertension; liver cancer; liver transplant; neuropathy; TIA; em - Immunization history:: Adult Immunizations up to date. - Social history:: Smoking status: Patient/guardian denies using tobacco. - Ebola Screening: : Patient negative for fever greater than or equal to 101.5 degrees Fahrenheit, and additional compatible Ebola Virus Disease symptoms Patient denies exposure to infectious person Patient denies travel to an Ebola-affected area in the 21 days before illness onset No symptoms or risks identified at this time. ROS: 14:52 Constitutional: Negative for fever, chills, and weight loss. jmm 14:52 Neck: Negative for injury, pain, and swelling. 14:52 Abdomen/GI: Negative for abdominal pain, nausea, vomiting, diarrhea, and constipation. 14:52 ENT: Positive for jaw pain. 14:52 Cardiovascular: Positive for chest pain. 14:52 All other systems are negative. Exam: 14:52 Head/Face: atraumatic. Eyes: EOMI, no conjunctival erythema appreciated ENT: Moist [facility] Mucus Membranes Neck: Trachea midline, Supple Chest/axilla: Normal chest wall appearance and motion. 14:52 Abdomen/GI: Non distended, soft Back: Normal ROM Skin: General appearance color normal MS/ Extremity: Moves all extremities, no obvious deformities appreciated, no edema noted to the lower extremities Neuro: Awake and alert, normal gait Psych: Behavior is normal, Mood is normal, Patient is cooperative and pleasant 14:52 Constitutional: The patient appears in no acute distress, alert, awake. 14:52 Cardiovascular: Rate: normal, Rhythm: regular. 14:52 Respiratory: the patient does not display signs of respiratory distress, Respirations: normal, Breath sounds: are clear throughout. Vital Signs: 14:47 BP 144 / 78; Pulse 87; Resp 18; Temp 98.3(O); Pulse Ox 99% on R/A; Height 5 ft. 6 in. em (167.64 cm); Pain 6/10; 15:30 BP 138 / 84; Pulse 87; Resp 18; Pulse Ox 98% on R/A; em 16:26 BP 129 / 82; Pulse 84; Resp 20 S; Pulse Ox 99% on R/A; em MDM: 14:52 Patient medically screened. [facility] 17:19 The patient was not given aspirin in the Emergency Department. Administered by EMS. [facility] Data reviewed: vital signs, nurses notes, lab test result(s), radiologic studies. 17:19 Refusal of service: The patient/guardian displays adequate decision making capability jm and despite a detailed discussion of alternatives, benefits, risks, and consequences refuses: Admission to the hospital for further work-up and treatment. ED course: HEART SCORE = 4. I discussed with the patient the need to be observed for chest pain due to risk factors. Patient declined. . 10/17 14:53 Order name: Basic Metabolic Panel; Complete Time: 16:10 [facility] 10/17 14:53 Order name: CBC with Diff; Complete Time: 16:10 [facility] 10/17 14:53 Order name: LFT's; Complete Time: 16:10 [facility] 10/17 14:53 Order name: Magnesium; Complete Time: 16:10 [facility] 10/17 14:53 Order name: NT PRO-BNP; Complete Time: 16:10 [facility] 10/17 14:53 Order name: PT-INR; Complete Time: 15:44 [facility] 10/17 14:53 Order name: Troponin (emerg Dept Use Only); Complete Time: 16:10 [facility] 10/17 14:53 Order name: XRAY Chest (1 view); Complete Time: 17:12 [facility] 10/17 14:53 Order name: EKG; Complete Time: 14:54 [facility] 10/17 14:53 Order name: Cardiac monitoring; Complete Time: 15:24 [facility] 10/17 14:53 Order name: EKG - Nurse/Tech; Complete Time: 15:24 [facility] 10/17 14:53 Order name: IV Saline Lock; Complete Time: 15:24 [facility] 10/17 14:53 Order name: Labs collected and sent; Complete Time: 15:24 [facility] 10/17 15:39 Order name: Manual Differential; Complete Time: 16:10 [facility] 10/17 14:53 Order name: O2 Per Protocol; Complete Time: 15:24 [facility] 10/17 14:53 Order name: O2 Sat Monitoring; Complete Time: 15:24 [facility] Administered Medications: No medications were administered Disposition: 10/18 09:59 Co-signature as Attending Physician, Gatito Chavez MD I agree with the assessment and jean claude plan of care. Disposition: 10/17/18 17:20 Patient has left against medical advice. Impression: Other chest pain. - Patients states they are going to Home. - Condition is Stable. Follow up: Private Physician; When: 2 - 3 days; Reason: Recheck today's complaints, Continuance of care, Re-evaluation by your physician. - Problem is new. - Symptoms have improved. Signatures: Dispatcher [employer] Gatito Parish MD MD cha Mickail, Joel, PA PA jmm Munoz, Edgar, HCC CODERS HCC CODERS em Corrections: (The following items were deleted from the chart) 10/17 17:42 17:20 10/17/2018 17:20 Patients has left against medical advice. Impression: Other em chest pain. Patient states they are going to Home. Condition is Stable. Follow up: Private Physician; When: 2 - 3 days; Reason: Recheck today's complaints, Continuance of care, Re-evaluation by your physician. Problem is new. Symptoms have improved. andrews
--- NOTE | 2018-10-19 06:32 | EKG ---
Test Date: 2018-10-17 Test Time: 14:34:35 Supervisor Powdered Metal: MCKINLEY MEASUREMENT RESULTS: Intervals: Rate: 86 IL: 206 QRSD: 100 QT: 400 QTc: 478 Bowie: P: 47 IL: 206 QRS: 13 T: 90 INTERPRETIVE STATEMENTS: Normal sinus rhythm Septal infarct, age undetermined Abnormal ECG Compared to ECG 09/03/2018 17:06:14 No significant changes Electronically Signed On 10-19-18 06:31:25 CDT by Moshe Peña
== END 2018-10-17 17:42 | disposition left against medical advice (07) ==
LOC: ER 14:34
DX: R07.89 Other chest pain (principal); Z94.4 Liver transplant status; E11.9 Type 2 diabetes mellitus without complications; I10 Essential (primary) hypertension; Z86.73 Personal history of transient ischemic attack (TIA), and cerebral infarction without residual deficits; Z88.1 Allergy status to other antibiotic agents; Z88.5 Allergy status to narcotic agent; Z79.82 Long term (current) use of aspirin; Z79.4 Long term (current) use of insulin
CPT/HCPCS: 36415; 71045; 80048; 80076; 83735; 83880; 84484; 85025; 85610; 93005; 99284

== ENCOUNTER 2020-06-07 10:12 | Emergency (ER) | payer OTHER ==
--- OUTSIDE RECORDS SUMMARY | 2020-06-07 10:18 | XMS REPORT | Continuity of Care Document ---
:1955 Author Organization [facility] t Address [address] [place] [address] Care Team Providers Name Role Phone Arnoldo Tejeda MD Primary Care Physician Saleem Dan Attending Clinician Unavailable Chet Attending Clinician Unavailable Jina VALLADARES Attending Clinician Unavailable Hadley VALLADARES, Y Attending Clinician Unavailable Domenico Attending Clinician Unavailable Tru VALLADARES Attending Clinician Unavailable Irvin Newby MD Attending Clinician Krista RN, P Attending Clinician Unavailable Mega Salinas MD Attending Clinician Dank VALLADARES, M Attending Clinician Unavailable Chet VALLADARES Attending Clinician Unavailable PEYMAN SHAH Attending Clinician Unavailable IRVIN NEWBY Attending Clinician Unavailable Renato GARCIA Attending Clinician Unavailable GHAZALA RODRIGUES Attending Clinician Unavailable MEGA SALINAS Attending Clinician Unavailable Coni RAMIREZ Attending Clinician Unavailable PEYMAN SHAH Admitting Clinician Unavailable Renato GARCIA Admitting Clinician Unavailable GHAZALA RODRIGUES Admitting Clinician Unavailable Coni RAMIREZ Admitting Clinician Unavailable Payers Payer Name Policy Type Policy Effective Date Expiration Date Sour ce Number [facility] [id number] 2018 [facility] - MEDICARE MGD 00:00:00 - Medical [facility] MEDICARE [id number]/[id number] 019-Present Problems Condition Condition Condition Status Onset Resolution Last Treating Co mments Source Name Details Category Date Date Treatment Clinician Date Screening Screening Disease Active [facility]18 [facility] - malignant malignant 00:00: Medi erasmo neoplasm neoplasm 00 Center Pleural Pleural Disease Active [facility] effusion effusion 6- [facility] - 00:00: Medical 00 Center Acute on Acute on Disease Active [facility] chronic chronic 6 [facility] - renal renal 00:00: Medical failure failure 00 Center Normochrom Normochrom Disease Active [facility] ic ic 6- [facility] - normocytic normocytic 00:00: Me dical anemia anemia 00 Center KRISTIAN (acute KRISTIAN (acute Disease Active [facility] kidney kidney 08-17 [facility] - injury) injury) 00:00: Medical 00 Center Chest pain Chest pain Disease Active [facility] 5-17 [facility] - 00:00: Medical 00 Center Immunosupp Immunosupp Disease Active [facility] ression ression 10-18 [facility] - 00:00: t & Plan: Medical 00 On Center prograf maintenan ce- will adjust according to level. CKD CKD Disease Active Last [facility] St (chronic (chronic 10-18 Assessmen [place] es - kidney kidney 00:00: t & Plan: Medical disease) disease) 00 Kidney Center function has recovered . Dr. Saini following . Hyperkalem Hyperkalem Disease Active [facility] HI St ia ia 10-14 Ass[facility]men [facility] - 00:00: t & Plan: Medical 00 Resolved Center with discontin uation of losartan and avoidance of K in diet, while on prograf. Continue to monitor- labs pending. Liver Liver Disease Active [facility] St replaced replaced 09-30 Assessmen [place] es - by by 00:00: t & Plan: Medical transplant transplant 00 Excellent Center graft function. Type 2 Type 2 Disease Active Last [facility] diabetes diabetes 12-17 Ass[facility]men [place] - mellitus mellitus 00:00: t & Plan: Med ical with with 00 Blood Center diabetic diabetic sugars polyneurop polyneurop controlle athy, with linda with d. long-term long-term current current use of use of insulin insulin Obesity Obesity Disease Active Last [facility] (BMI (BMI 9- [facility] - 30-39.9) 30-39.9) 00:00: t & Plan: Med ical 00 Patient Center has not yet started to diet. Patient uses a walker but seems motivated to make changes. States she has lost 45 pounds in anticipat ion of transplan t. Lipid profile looks good on last lab draw. Portal Portal Disease Active [facility] St hypertensi hypertensi 10-29 Assessmen [facility] - on on 00:00: t & Plan: Medical 00 Manifeste Center d by ugo tom. HCC HCC Disease Active [facility] (hepatocel (hepatocel 10-29 Assessmen [facility] - lular lular 00:00: t & Plan: Medical carcinoma) carcinoma) 00 2 foci of Center HCC without lymphovas cular invasion. Continue with HCC surveilla nce using cross-sec tional imaging. Hepatitis Hepatitis Disease Active [facility] C, C, 10-29 [facility] - genotype genotype 00:00: t & Plan: Med ical 3a 3a 00 Patient Center is s/p liver transplan t. Is being followed by hepatolog y. Immunity Immunity Disease Active [facility] t [facility] - testing testing 00:00: t & Plan: Medic al 00 CDC Center recommend s that all patients with chronic liver disease, regardles s of etiology, should be immunized to prevent hepatitis A and hepatitis B if they are not already immune. This should be done in addition to other age-appro priate vaccines. We will test for immunity to both viruses - vaccine recommend ations will follow. Overweight Overweight Disease Active [facility] (BMI (BMI [facility] - 25.0-29.9) 25.0-29.9) [facility] Metabolic Metabolic Disease Active [facility] syndrome syndrome [facility] Allergies, Adverse Reactions, Alerts Allergy Allergy Status Severity Reaction(s) Onset Inactive Treating Comm ents Source Name Type Date Date Clinician Levoflox Propensi Active Itching,r [facility] acin ty to 09-30 Janett - adverse 00:00: burning Medical reaction 00 on the Center s site only. Codeine Drug Active Rash [facility] Allergy 10-29 [facility] - 00:00: Medical 00 [place] Family History Family Member Diagnosis Comments Start Date Stop Date Source Natural mother Stroke [facility] Natural sister Cancer [facility] St [facility] Social History Social Habit Start Date Stop Date Quantity Comments Source Sex Assigned At [facility] Cigarettes smoked 2020-05-04 2020-05-04 MITZI Berkowitz - current (pack per 00:00:00 00:00:00 [facility] Center day) - Reported Cigarette 2020-05-04 2020-05-04 MITZI Berkowitz - pack-years 00:00:00 00:00:00 [facility] Tobacco use and 2020-05-04 2020-05-04 Never used [facility] St Melony bennett - exposure 00:00:00 00:00:00 [facility] Alcohol intake 2020-05-04 2020-05-[address] [facility] [address] Abiola cabello - 00:00:00 00:00:00 non-drinker of Medical Ce nter alcohol (finding) Alcohol Comment 2016-08-08 2016-08-08 1 drink/ [address] [facility] [address] Melony bennett - 00:00:00 00:00:00 months [facility] Smoking Status Start Date Stop Date Source Former smoker 2020-05-04 00:00:00 2020-05-04 00:00:00 [facility] Medications Ordered Filled Start Stop Current Ordering Indication Dosage Frequency Signature Comments Components Source Medication Medication Date Date Medication? Clinician (SIG) Name Name tacrolimus 2019-03 Yes TAKE 3 [facility] (PROGRAF) 1 1-20 CAPSULES Luke s - MG capsule 00:00: BY MOUTH Med ical 00 TWO TIMES Center DAILY tacrolimus 2019-03 2020- No 2mg Q.5D Take [address] (PROGRAF) 1 - 11-20 capsules Abiola es - MG capsule 00:00: 00:00 (2 mg Medic al 00 :00 total) by Center mouth 2 (two) times daily. metoprolol 2020-0 Yes 100mg Q.5D Take [address] (TOPROL-XL) 1-21 mg by [facility] - 100 MG 24 18:16: mouth 2 Medic al hr tablet 17 (two) Center times daily. traMADol 2020-0 Yes 50mg Take [address] (ULTRAM) 50 1-21 by mouth 2 Melony kes - mg tablet 18:16: (two) Medical 17 times Center daily as needed for Pain . atorvastati 2020-0 Yes 40mg QD Take [address] n (LIPITOR) 1-21 by mouth Luke s - 40 MG 18:16: daily. Medical tablet 17 [place] sodium Yes 500mL Inject [address] chloride 1-21 mLs [facility]ukes - 0.9% (NS) 00:00: intravenou Me dical infusion 00 sly Center continuous . tacrolimus 2019- No 3mg in the [facility] St (PROGRAF) 1 9-16 11-02 morning Luke s - MG capsule 00:00: 00:00 and 2mg at Medical 00 :00 night. [place] insulin Yes 15U QD Inject 15 [facility] glargine 8-27 Units [facility]ukes - (LANTUS 00:00: subcutaneo Medi erasmo SOLOSTAR 00 usly every Cente r U-100 morning. INSULIN) 100 unit/mL (3 mL) InPn blood sugar Yes Diabetes Test 4 [facility] diagnostic 7-31 (HCC) times [facility]ukes - (EASY 00:00: daily, Medical TOUCH) Strp [address] and at bedtime. Immunizations Ordered Immunization Filled Immunization Date Status Commen ts Source Name Name Pneumococcal 2016-08-09 Completed [facility] - Polysaccharide 00:00:00 Medical Ce nter (Pneumovax) Vital Signs Vital Name Observation Time Observation Value Comments Source Body height 2020-05-04 15:11:00 165.1 cm [facility] Body weight 2020-05-04 15:11:00 87 kg [facility] BMI 2020-05-04 15:11:00 31.92 kg/m2 [facility] Procedures This patient has no known procedures. Plan of Care Planned Activity Planned Date Details Comments Source Future Scheduled 2021-08-09 PNEUMOCOCCAL 65+ YRS [facility] - Test 00:00:00 (1 of 1 - [facility] [id number] PCV13) [code = PNEUMOCOCCAL 65+ YRS (1 of 1 - [id number] PCV13)] Future Scheduled 2020-03-[address] [facility] - Test 00:00:00 (12+) [code = [facility] DEPRESSION SCREENING (12+)] Future Scheduled 2019-11-24 INFLUENZA VACCINE (#1) [facility] - Test 00:00:00 [code = INFLUENZA Medical Ce nter VACCINE (#1)] Future Scheduled 2019-07-[address] [facility] - Test 00:00:00 WELLNESS (YEAR 2 or Medical Center FIRST YEAR if no IPPE) [code = MEDICARE ANNUAL WELLNESS (YEAR 2 or FIRST YEAR if no IPPE)] Future Scheduled 2019-02-[address] Melony kes - Test 00:00:00 measurement Medical Center (procedure) [code = 90739384] Future Scheduled 2003 SHINGLES VACCINES ([address] [facility] - Test 00:00:00 of 2) [code = SHINGLES Medic al Center VACCINES (1 of 2)] Future Scheduled 1972-01-08 DTAP/TDAP/TD VACCINES [facility] - Test 00:00:00 (1 - Tdap) [code = Medical C enter DTAP/TDAP/TD VACCINES (1 - Tdap)] Future Scheduled 1963 DIABETIC EYE EXAM [facility] - Test 00:00:00 [code = DIABETIC EYE Medical Center EXAM] Future Scheduled [address] Abiola es - Test 00:00:00 examination Medical Center (regime/therapy) [code = 819596573] Future Scheduled 1963 Urine screening for [facility] - Test 00:00:00 protein (procedure) Medical Center [code = 270755329] Future Scheduled [address] [facility]ola es - Test 00:00:00 malignant neoplasm of Medical Center [facility] breast (procedure) [code = 803669989] Future Scheduled [address] [facility] [place]ola es - Test 00:00:00 malignant neoplasm of Medical Center [facility] colon (procedure) [code = 384556647] Results Test Description Test Time Test Comments Results Result Comments Source POCT-GLUCOSE METER 2019-04-14 17:00:00 Test Item Value Reference Range Interpretation Comme nts POC-GLUCOSE METER (BEAKER) 82 mg/dL 70-110 : TESTED AT [facility] [address] [place] [address] (test code = 1538) FELIX DUNN [facility] [address]: Wet Process Head Miller/Techni leah ID = [id number] for Bettycarmenradha Coreycristina a POCT-GLUCOSE [id number] 13:38:00 Test Item Value Reference Range Interpretation Comments POC-GLUCOSE METER 143 mg/dL 70-110 H : TESTED A T [facility] (BEAKER) (test code [address], = 1538) [facility] [place] [address]: Wet Process Head Miller/Techni leah ID = [id number] for [facility] BASIC METABOLIC [id number] 14:15:00 Test Item Value Reference Range Interpretation Comments SODIUM (BEAKER) 139 meq/L 135-148 (test code = 381) POTASSIUM (BEAKER) 4.9 meq/L 3.6-5.5 (test code = 379) CHLORIDE (BEAKER) 105 meq/L 98-106 (test code = 382) CO2 (BEAKER) (test 25 meq/L 20-29 code = 355) BLOOD UREA NITROGEN 50 mg/dL 10-26 H (BEAKER) (test code = 354) CREATININE (BEAKER) 3.92 mg/dL 0.50-1.20 H (test code = 358) GLUCOSE RANDOM 162 mg/dL 70-110 H (BEAKER) (test code = 652) CALCIUM (BEAKER) 9.1 mg/dL 8.5-10.5 (test code = 697) EGFR (BEAKER) (test 11 mL/min/1.73 ESTIMA RYAN GFR IS code = 1092) sq m NOT ACCURATE CREATININE CLEARANCE IN PREDICTING GLOMERULAR FILTRATION RATE . ESTIMATED GFR I S NOT APPLICABLE FOR DIALYSIS PATIEN TS. [id number] 14:10:00 Test Item Value Reference Range Interpretation Comments PROTIME (BEAKER) (test code = 759) 11.4 sec 9.3-12.0 INR (BEAKER) (test code = 370) 1.1 <=5.9 PARTIAL THROMBOPLASTIN TIME (BEAKER) 28.5 sec 23.0-35.0 (test code = 760) RECOMMENDED COUMADIN/WARFARIN INR THERAPY RANGESSTANDARD DOSE: 2.0 - 3.0 Includes: PROPHYLAXIS forvenous thrombosis, systemic embolization; TREATMENT for venous thrombosis and/or pulmonary embolus.HIGH RISK: Target INR is 2.5-3.5 for patients with mechanical heart valves.Final Information (Auto Output)Final Information (Auto Output)Final Information (Auto Output)CBC W/PLT COUNT & AUTO [id number] 13:57:00 Test Item Value Reference Range Interpretation Comments WHITE BLOOD CELL COUNT (BEAKER) 5.2 K/ L 4.0-10.0 (test code = 775) RED BLOOD CELL COUNT (BEAKER) 3.96 M/ L 4.00-5.00 L (test code = 761) HEMOGLOBIN (BEAKER) (test code = 11.3 GM/DL 12.0-15.5 L 410) HEMATOCRIT (BEAKER) (test code = 36.3 % 36.0-46.0 411) MEAN CORPUSCULAR VOLUME (BEAKER) 91.7 fL 82.0-99.0 (test code = 753) MEAN CORPUSCULAR HEMOGLOBIN 28.5 pg 27.0-33.0 (BEAKER) (test code = 751) MEAN CORPUSCULAR HEMOGLOBIN CONC 31.1 GM/DL 32.0-36.0 L (BEAKER) (test code = 752) RED CELL DISTRIBUTION WIDTH 13.2 % 12.0-15.0 (BEAKER) (test code = 412) PLATELET COUNT (BEAKER) (test 172 K/CU MM 150-430 code = 756) MEAN PLATELET VOLUME (BEAKER) 9.3 fL 6.0-11.5 (test code = 754) NUCLEATED RED BLOOD CELLS 0 /100 WBC 0-0 (BEAKER) (test code = 413) NEUTROPHILS RELATIVE PERCENT 49 % (BEAKER) (test code = 429) LYMPHOCYTES RELATIVE PERCENT 38 % (BEAKER) (test code = 430) MONOCYTES RELATIVE PERCENT 9 % (BEAKER) (test code = 431) EOSINOPHILS RELATIVE PERCENT 3 % (BEAKER) (test code = 432) BASOPHILS RELATIVE PERCENT 1 % (BEAKER) (test code = 437) NEUTROPHILS ABSOLUTE COUNT 2.55 K/ L 1.80-8.00 (BEAKER) (test code = 670) LYMPHOCYTES ABSOLUTE COUNT 1.98 K/ L 1.48-4.50 (BEAKER) (test code = 414) MONOCYTES ABSOLUTE COUNT (BEAKER) 0.45 K/ L 0.00-1.30 (test code = 415) EOSINOPHILS ABSOLUTE COUNT 0.15 K/ L 0.00-0.50 (BEAKER) (test code = 416) BASOPHILS ABSOLUTE COUNT (BEAKER) 0.03 K/ L 0.00-0.20 (test code = 417) IMMATURE GRANULOCYTES-RELATIVE 0 % 0-0 PERCENT (BEAKER) (test code = 2801) HEPATITIS PANEL, [id number] 13:23:00 Test Item Value Reference Range Interpretation Comments HEPATITIS A IGM ANTIBODY (BEAKER) Nonreactive Nonreactive (test code = 498) HEPATITIS B CORE IGM ANTIBODY Nonreactive Nonreactive (BEAKER) (test code = 645) HEPATITIS C ANTIBODY (BEAKER) Reactive Nonreactive A (test code = 367) HEPATITIS B SURFACE ANTIGEN (2) Nonreactive Nonreactive (BEAKER) (test code = 2585) HEPATITIS C PCR, [id number] 09:00:00 Test Item Value Reference Range Interpretation Comments HCV RESULT COMPONENT HCV RNA not detected HCV RNA not detected (BEAKER) (test code = 2699) This test uses a Real-Time Polymerase Chain Reaction (RT-PCR) methodology and was performed using LAZ Ampliprep/LAZ TaqMan HCV test kit version 2.0 ([employer]).Reportable range for this assay is 15 - 100,000,000 IU per mL (1.18 - 8.00 Log IU/mL).RAD, CHEST, 2 [id number] 12:43:00PA and Lateral for Liver TransplantReason for Exam:->s/p OLT; h/o HCC FINAL REPORT Chest, PA and lateral. History: Liver transplant. Comparison: 09/04/2018. Discussion: Dialysis catheter present. The cardiomediastinal silhouette and pulmonary vasculature are within normal limits. The lungs are clear without evidence of consolidation or effusion. There are no acute osseous abnormalities. The soft tissues are unremarkable. IMPRESSION: No acute cardiopulmonary abnormality. Signed: Blue Jones COX BRANSONeport Verified Date/Time: 11/18/2018 12:43:30 Reading Location: [facility] 12:43 PMU/S, ABDOMINAL, WITH [id number] 12:41:00Doppler Study to evaluate Hepatic vesselsReason for Exam:->s/p OLT; h/o HCCFINAL REPORT Ultrasound of the Abdomen and Duplex Doppler. TECHNIQUE: Sonographic assessment of the abdomen was performed as well as a detailed duplex Doppler assessment of the liver including spectral wave forms and color-flow analysis of the major vascular structures. ClinicalHistory: s/p OLT; h/o HCC. Comparison study: August 18, 2018. Findings: The transplant liver slightly heterogeneous in echotexture with no focal masses. It measures 14.8 cm in length. There is no evidenceof intra or extrahepatic biliary dilatation with the common bile duct measuring five mm. The main portal vein diameter is 1.4 cm. The gallbladder is absent. The spleen measures 13.4 cm, mildly enlarged. The pancreas is within normal limits. No ascites is present. The right kidney measures 11.0 cm and left kidney measures 11.4 cm, both within normal limits. No pleural effusions are seen. The proximal aorta and IVC are unremarkable. Doppler interrogation of the liver demonstrates a main portal vein diameter measuring 1.4 cm with a peak systolic velocity of 28 cm/sec. Hepatopetal inflow is seen in the right, left, main portal and splenic veins. The resistive indices in the proper, right and left hepatic arteries are 0.9, 0.8 and 0.8 respectively. Outflow with appropriate directionality is seen inthe IVC, hepatic venous confluence as well as the right, middle and left hepatic veins. Impression: 1. Slightly heterogeneous transplant liver with no focal masses.2. Mild splenomegaly.3. Elevated resistive indices in the hepatic arteries. Otherwise unremarkable hepatic Doppler. Signed: Nino Hill MDReport Verified Date/Time: 11/18/2018 12:41:02 Reading Location: [address] Radiology ReadingRoom TACROLIMUS [id number] 11:19:00 Test Item Value Reference Range Interpretation Comments TACROLIMUS BLOOD (BEAKER) (test 12.6 ng/mL 10.0-20.0 code = 657) COMPREHENSIVE METABOLIC [id number] 09:26:00 Test Item Value Reference Range Interpretation Comments TOTAL PROTEIN 8.0 gm/dL 6.0-8.3 (BEAKER) (test code = 770) ALBUMIN (BEAKER) 3.8 g/dL 3.5-5.0 (test code = 1145) ALKALINE PHOSPHATASE 106 U/L 40-150 (BEAKER) (test code = 346) BILIRUBIN TOTAL 0.7 mg/dL 0.2-1.2 (BEAKER) (test code = 377) SODIUM (BEAKER) (test 140 meq/L 136-145 code = 381) POTASSIUM (BEAKER) 5.4 meq/L 3.5-5.1 H (test code = 379) CHLORIDE (BEAKER) 104 meq/L 98-107 (test code = 382) CO2 (BEAKER) (test 26 meq/L 22-29 code = 355) BLOOD UREA NITROGEN 79 mg/dL 7-21 H (BEAKER) (test code = 354) CREATININE (BEAKER) 4.13 mg/dL 0.57-1.25 H (test code = 358) GLUCOSE RANDOM 271 mg/dL 70-105 H (BEAKER) (test code = 652) CALCIUM (BEAKER) 9.0 mg/dL 8.4-10.2 (test code = 697) AST (SGOT) (BEAKER) 20 U/L 5-34 (test code = 353) ALT (SGPT) (BEAKER) 25 U/L 6-55 (test code = 347) EGFR (BEAKER) (test 11 mL/min/1.73 ESTIMA RYAN GFR IS code = 1092) sq m NOT ACCURATE CREATININE CLEARANCE IN PREDICTING GLOMERULAR FILTRATION RATE . ESTIMATED GFR I S NOT APPLICABLE FOR DIALYSIS PATIEN TS. [id number] 08:48:00 Test Item Value Reference Range Interpretation Comments PHOSPHORUS (BEAKER) (test code = 6.5 mg/dL 2.3-4.7 H 604) [id number] 08:48:00 Test Item Value Reference Range Interpretation Comments MAGNESIUM (BEAKER) (test code = 3.1 mg/dL 1.6-2.6 H 627) BILIRUBIN, [id number] 08:48:00 Test Item Value Reference Range Interpretation Comments BILIRUBIN DIRECT (BEAKER) (test 0.4 mg/dL 0.1-0.5 code = 706) CBC W/PLT COUNT & AUTO [id number] 08:07:00 Test Item Value Reference Range Interpretation Comments WHITE BLOOD CELL COUNT (BEAKER) 4.0 K/ L 3.5-10.5 (test code = 775) RED BLOOD CELL COUNT (BEAKER) 4.66 M/ L 3.93-5.22 (test code = 761) HEMOGLOBIN (BEAKER) (test code = 12.2 GM/DL 11.2-15.7 410) HEMATOCRIT (BEAKER) (test code = 39.9 % 34.1-44.9 411) MEAN CORPUSCULAR VOLUME (BEAKER) 85.6 fL 79.4-94.8 (test code = 753) MEAN CORPUSCULAR HEMOGLOBIN 26.2 pg 25.6-32.2 (BEAKER) (test code = 751) MEAN CORPUSCULAR HEMOGLOBIN CONC 30.6 GM/DL 32.2-35.5 L (BEAKER) (test code = 752) RED CELL DISTRIBUTION WIDTH 15.5 % 11.7-14.4 H (BEAKER) (test code = 412) PLATELET COUNT (BEAKER) (test 154 K/CU MM 150-450 code = 756) MEAN PLATELET VOLUME (BEAKER) 10.2 fL 9.4-12.3 (test code = 754) NUCLEATED RED BLOOD CELLS 0 /100 WBC 0-0 (BEAKER) (test code = 413) NEUTROPHILS RELATIVE PERCENT 57 % (BEAKER) (test code = 429) LYMPHOCYTES RELATIVE PERCENT 31 % (BEAKER) (test code = 430) MONOCYTES RELATIVE PERCENT 8 % (BEAKER) (test code = 431) EOSINOPHILS RELATIVE PERCENT 3 % (BEAKER) (test code = 432) BASOPHILS RELATIVE PERCENT 1 % (BEAKER) (test code = 437) NEUTROPHILS ABSOLUTE COUNT 2.25 K/ L 1.56-6.13 (BEAKER) (test code = 670) LYMPHOCYTES ABSOLUTE COUNT 1.24 K/ L 1.18-3.74 (BEAKER) (test code = 414) MONOCYTES ABSOLUTE COUNT (BEAKER) 0.30 K/ L 0.24-0.36 (test code = 415) EOSINOPHILS ABSOLUTE COUNT 0.10 K/ L 0.04-0.36 (BEAKER) (test code = 416) BASOPHILS ABSOLUTE COUNT (BEAKER) 0.04 K/ L 0.01-0.08 (test code = 417) IMMATURE GRANULOCYTES-RELATIVE 1 % 0-1 PERCENT (BEAKER) (test code = 2801) POCT-GLUCOSE [id number] 14:28:00 Test Item Value Reference Range Interpretation Comments POC-GLUCOSE METER 89 mg/dL 70-[address] [facility] 67[address] (BEAKER) (test [facility] = [facility] [address] 1538) POCT-GLUCOSE [id number] 11:40:00 Test Item Value Reference Range Interpretation Comments POC-GLUCOSE METER 131 mg/dL 70-[address] [facility] 67[address] [facility] (test code = BRENDA Santaigo [facility] 1538) [id number] TACROLIMUS [id number] 09:35:00 Test Item Value Reference Range Interpretation Comments TACROLIMUS BLOOD (BEAKER) (test 5.7 ng/mL 10.0-20.0 L code = 657) POCT-GLUCOSE [id number] 07:27:00 Test Item Value Reference Range Interpretation Comments POC-GLUCOSE METER 101 mg/dL 70-[address] [facility] 67[address] ([facility]) (test code = [facility] 1538) [address] BASIC METABOLIC [id number] 06:57:00 Test Item Value Reference Range Interpretation Comments SODIUM (BEAKER) 131 meq/L 136-145 L (test code = 381) POTASSIUM (BEAKER) 3.9 meq/L 3.5-5.1 (test code = 379) CHLORIDE (BEAKER) 96 meq/L 98-107 L (test code = 382) CO2 (BEAKER) (test 29 meq/L 22-29 code = 355) BLOOD UREA NITROGEN 28 mg/dL 7-21 H (BEAKER) (test code = 354) CREATININE (BEAKER) 2.78 mg/dL 0.57-1.25 H (test code = 358) GLUCOSE RANDOM 109 mg/dL 70-105 H (BEAKER) (test code = 652) CALCIUM (BEAKER) 8.7 mg/dL 8.4-10.2 (test code = 697) EGFR (BEAKER) (test 17 mL/min/1.73 ESTIMA RYAN GFR IS code = 1092) sq m NOT ACCURATE CREATININE CLEARANCE IN PREDICTING GLOMERULAR FILTRATION RATE . ESTIMATED GFR I S NOT APPLICABLE FOR DIALYSIS PATIEN TS. HEPATIC FUNCTION [id number] 06:56:00 Test Item Value Reference Range Interpretation Comments TOTAL PROTEIN (BEAKER) (test code = 7.4 gm/dL 6.0-8.3 770) ALBUMIN (BEAKER) (test code = 1145) 3.4 g/dL 3.5-5.0 L BILIRUBIN TOTAL (BEAKER) (test code 1.1 mg/dL 0.2-1.2 = 377) BILIRUBIN DIRECT (BEAKER) (test 0.5 mg/dL 0.1-0.5 code = 706) ALKALINE PHOSPHATASE (BEAKER) (test 97 U/L 40-150 code = 346) AST (SGOT) (BEAKER) (test code = 19 U/L 5-34 353) ALT (SGPT) (BEAKER) (test code = 15 U/L 6-55 347) POCT-GLUCOSE [id number] 16:39:00 Test Item Value Reference Range Interpretation Comments POC-GLUCOSE METER 149 mg/dL 70-110 H TESTED AT [place] [address] ([facility]) (test code = [facility] 1538) [address] HEPATITIS B SURFACE [id number] 15:26:00 Test Item Value Reference Range Interpretation Comments HEPATITIS B SURFACE ANTIBODY < mIU/mL <8.0 ([facility]) (test code = 647) POCT-GLUCOSE [id number] 12:22:00 Test Item Value Reference Range Interpretation Comments POC-GLUCOSE METER 141 mg/dL 70-110 H TESTED AT [place] [address] ([facility]) (test code = [facility] 1538) [id number] TACROLIMUS [id number] 09:43:00 Test Item Value Reference Range Interpretation Comments TACROLIMUS BLOOD (BEAKER) (test 5.5 ng/mL 10.0-20.0 L code = 657) POCT-GLUCOSE [id number] 07:48:00 Test Item Value Reference Range Interpretation Comments POC-GLUCOSE METER 135 mg/dL 70-110 H TESTED AT [place] [address] ([facility]) (test code = [facility] 1538) [address] BASIC METABOLIC [id number] 07:00:00 Test Item Value Reference Range Interpretation Comments SODIUM (BEAKER) 135 meq/L 136-145 L (test code = 381) POTASSIUM (BEAKER) 3.7 meq/L 3.5-5.1 (test code = 379) CHLORIDE (BEAKER) 101 meq/L 98-107 (test code = 382) CO2 (BEAKER) (test 28 meq/L 22-29 code = 355) BLOOD UREA NITROGEN 20 mg/dL 7-21 (BEAKER) (test code = 354) CREATININE (BEAKER) 2.38 mg/dL 0.57-1.25 H (test code = 358) GLUCOSE RANDOM 107 mg/dL 70-105 H (BEAKER) (test code = 652) CALCIUM (BEAKER) 8.3 mg/dL 8.4-10.2 L (test code = 697) EGFR (BEAKER) (test 20 mL/min/1.73 ESTIMA RYAN GFR IS code = 1092) sq m NOT ACCURATE CREATININE CLEARANCE IN PREDICTING GLOMERULAR FILTRATION RATE . ESTIMATED GFR I S NOT APPLICABLE FOR DIALYSIS PATIEN TS. HEPATIC FUNCTION [id number] 06:54:00 Test Item Value Reference Range Interpretation Comments TOTAL PROTEIN (BEAKER) (test code = 6.5 gm/dL 6.0-8.3 770) ALBUMIN (BEAKER) (test code = 1145) 2.9 g/dL 3.5-5.0 L BILIRUBIN TOTAL (BEAKER) (test code 0.9 mg/dL 0.2-1.2 = 377) BILIRUBIN DIRECT (BEAKER) (test 0.5 mg/dL 0.1-0.5 code = 706) ALKALINE PHOSPHATASE (BEAKER) (test 82 U/L 40-150 code = 346) AST (SGOT) (BEAKER) (test code = 21 U/L 5-34 353) ALT (SGPT) (BEAKER) (test code = 15 U/L 6-55 347) POCT-GLUCOSE [id number] 16:29:00 Test Item Value Reference Range Interpretation Comments POC-GLUCOSE METER 167 mg/dL 70-[address] [facility] 67 ([facility]) ([facility] [address] POCT-GLUCOSE [id number] 12:30:00 Test Item Value Reference Range Interpretation Comments POC-GLUCOSE METER 116 mg/dL 70-[address] [facility] 6720 ([facility]) (test code = [facility] 1538) [address] TACROLIMUS [id number] 11:11:00 Test Item Value Reference Range Interpretation Comments TACROLIMUS BLOOD (BEAKER) (test 4.3 ng/mL 10.0-20.0 L code = 657) HEPATITIS C PCR, [id number] 09:05:00 Test Item Value Reference Range Interpretation Comments HCV RESULT COMPONENT HCV RNA not detected HCV RNA not detected (BEAKER) (test code = 2699) This test uses a Real-Time Polymerase Chain Reaction (RT-PCR) methodology and was performed using LAZ Ampliprep/LAZ TaqMan HCV test kit version 2.0 ([employer]).Reportable range for this assay is 15 - 100,000,000 IU per mL (1.18 - 8.00 Log IU/mL).POCT-GLUCOSE [id number] 08:55:00 Test Item Value Reference Range Interpretation Comments POC-GLUCOSE METER 114 mg/dL 70-110 H TESTED AT [place] [address] ([facility]) (test code = [facility] 1538) [address] HEPATIC FUNCTION [id number] 06:29:00 Test Item Value Reference Range Interpretation Comments TOTAL PROTEIN (BEAKER) (test code = 6.5 gm/dL 6.0-8.3 770) ALBUMIN ([facility]) (test code = 1145) 3.0 g/dL 3.5-5.0 L BILIRUBIN TOTAL (BEAKER) (test code 0.8 mg/dL 0.2-1.2 = 377) BILIRUBIN DIRECT (AKER) (test 0.5 mg/dL 0.1-0.5 code = 706) ALKALINE PHOSPHATASE (BEAKER) (test 86 U/L 40-150 code = 346) AST (SGOT) (BEAKER) (test code = 14 U/L 5-34 353) ALT (SGPT) ([facility]) (test code = 11 U/L 6-55 347) POCT-GLUCOSE [id number] 22:27:00 Test Item Value Reference Range Interpretation Comments POC-GLUCOSE METER 272 mg/dL 70-110 H TESTED AT [place] [address] ([facility]) (test code = [facility] 1538) [address] POCT-GLUCOSE [id number] 16:45:00 Test Item Value Reference Range Interpretation Comments POC-GLUCOSE METER 108 mg/dL 70-110 TESTED AT [place] [address] ([facility]) (test code = [facility] 1538) [address] POCT-GLUCOSE [id number] 11:54:00 Test Item Value Reference Range Interpretation Comments POC-GLUCOSE METER 153 mg/dL 70-110 H TESTED AT [place] [address] (BEAKER) (test code = [place] 1538) [address] TACROLIMUS [id number] 09:55:00 Test Item Value Reference Range Interpretation Comments TACROLIMUS BLOOD (BEAKER) (test 5.5 ng/mL 10.0-20.0 L code = 657) U/S, [id number] 09:51:00Laterality?->RightReason for exam:->dyspneaFINAL REPORT Exam: Ultrasound guided thoracentesis Clinical History: [...] of Dr. Al Phillips Signed: Al Phillips [facility] Verified Date/Time: 09/09/2018 09:51:20 Reading Location: [address] Reading Room BASIC METABOLIC PANEL 2018-09-09 08:37:00 Test Item Value Reference Range Interpretation Comments SODIUM (BEAKER) 134 meq/L 136-145 L (test code = 381) POTASSIUM (BEAKER) 4.1 meq/L 3.5-5.1 (test code = 379) CHLORIDE (BEAKER) 103 meq/L 98-107 (test code = 382) CO2 (BEAKER) (test 24 meq/L 22-29 code = 355) BLOOD UREA NITROGEN 46 mg/dL 7-21 H (BEAKER) (test code = 354) CREATININE (BEAKER) 2.52 mg/dL 0.57-1.25 H (test code = 358) GLUCOSE RANDOM 171 mg/dL 70-105 H (BEAKER) (test code = 652) CALCIUM (BEAKER) 8.3 mg/dL 8.4-10.2 L (test code = 697) EGFR (BEAKER) (test 19 mL/min/1.73 ESTIMA RYAN GFR IS code = 1092) sq m NOT ACCURATE CREATININE CLEARANCE IN PREDICTING GLOMERULAR FILTRATION RATE . ESTIMATED GFR I S NOT APPLICABLE FOR DIALYSIS PATIEN TS. POCT-GLUCOSE [id number] 07:33:00 Test Item Value Reference Range Interpretation Comments POC-GLUCOSE METER 175 mg/dL 70-[address] [facility] 6720 [facility] (test code = [facility] 1538) [address] HEPATIC FUNCTION [id number] 06:51:00 Test Item Value Reference Range Interpretation Comments TOTAL PROTEIN (BEAKER) (test code = 6.5 gm/dL 6.0-8.3 770) ALBUMIN (BEAKER) (test code = 1145) 3.0 g/dL 3.5-5.0 L BILIRUBIN TOTAL (BEAKER) (test code 0.8 mg/dL 0.2-1.2 = 377) BILIRUBIN DIRECT (BEAKER) (test 0.5 mg/dL 0.1-0.5 code = 706) ALKALINE PHOSPHATASE (BEAKER) (test 94 U/L 40-150 code = 346) AST (SGOT) (BEAKER) (test code = 13 U/L 5-34 353) ALT (SGPT) (BEAKER) (test code = 10 U/L 6-55 347) POCT-GLUCOSE [id number] 01:03:00 Test Item Value Reference Range Interpretation Comments POC-GLUCOSE METER 207 mg/dL 70-110 H TESTED AT [place] [id number] ([facility]) (test code = [facility] [place] 1538) [address] POCT-GLUCOSE [id number] 16:52:00 Test Item Value Reference Range Interpretation Comments POC-GLUCOSE METER 296 mg/dL 70-110 H TESTED AT [place] [address] ([facility]) (test code = [facility] [place] 1538) [address] ANG, TUNNELED CATHETER [id number] 15:43:00Tunneled dialysis catheter placement, may be done carmen, hopefully no later than Saturday morning.Reason for exam:->Initiation on HD.FINAL REPORT Tunneled dialysis catheter insertion, 09/08/2018. History: Renal failure. Modality: Sonography and fluoroscopy. Sedation: Versed 1 mg and fentanyl 50 mcg was given intravenously for conscious sedation. Vital signs were monitored throughout the procedure by a nurse, and remained stable. Physician intra- service time was 20 min. Rocket Test Fire Worker: Yessenia. Application Software Engineer: None. Approach: Right internal jugular vein Estimated [...] sterile gown for performing radiologist and scrub techn ologist. The skin was anesthetized with 2% lidocaine.Ultrasound evaluation showed a patent and compressible right internal jugular vein, which was punctured under direct real-time ultrasound guidance with a micropuncture needle. An ultrasound image was saved to PACS. A 0.018 inch wire was placed through the needle into the right atrium. A 4 [place] micropuncture sheath was placed. A subcutaneous tunnel was created in the right anterior chest wall by blunt dissection. A 19 cm 15.5 [place] Duraflow 2 catheter was brought through the [...] fluoroscopic guidance and conscious sedation. Signed: Alfredo [place] Verified Date/Time: 09/08/2018 15:43:17 Reading Location: [place] [id number] Angio Body Reading Room CYTOLOGY 2018-09-08 11:56:00Medical Cytology Report Case: [id number] Authorizing Provider: Wero Sharp MD Collected: 09/04/2018 1820 Ordering Location: [address] Received: 09/05/2018 0846 Pathologist: Donnie Otoole MD Specimen: Pleural, Right RIGHT PLEURAL FLUID (CYTOSPINS AND CELL BLOCK): - REACTIVE MESOTHELIAL CELLS IN A BACKGROUND OF CHRONIC INFLAMMATION Signing Pathologist Direct Phone Line: [phone] signed by Donnie Otoole MD on 09/08/2018 at 11:56 [id number], [id number] pleural effusion, history of hepatocellular cancerRIGHT PLEURAL [id number] mls orange; 4 cytospins, cell blockCollected: [id number]: [phone] [facility], Department of Pathology, [address] [place] [address], Tel [phone], [facility] of [facility]ology, [address] [place] [address], [facility], Department of Pathology, [address] [place] [address], AQAG-GLUCOSE [id number] 11:51:00 Test Item Value Reference Range Interpretation Comments POC-GLUCOSE METER 166 mg/dL 70-110 H TESTED AT [place] [address] ([facility]) (test code = [place] [facility] 1538) [facility] TACROLIMUS [id number] 11:01:00 Test Item Value Reference Range Interpretation Comments TACROLIMUS BLOOD ([facility]) (test 7.3 ng/mL 10.0-20.0 L code = 657) BASIC METABOLIC [id number] 07:58:00 Test Item Value Reference Range Interpretation Comments SODIUM (BEAKER) 131 meq/L 136-145 L (test code = 381) POTASSIUM (BEAKER) 4.7 meq/L 3.5-5.1 (test code = 379) CHLORIDE (BEAKER) 103 meq/L 98-107 (test code = 382) CO2 (BEAKER) (test 20 meq/L 22-29 L code = 355) BLOOD UREA NITROGEN 74 mg/dL 7-21 H (BEAKER) (test code = 354) CREATININE (BEAKER) 3.53 mg/dL 0.57-1.25 H (test code = 358) GLUCOSE RANDOM 88 mg/dL 70-105 (BEAKER) (test code = 652) CALCIUM (BEAKER) 8.2 mg/dL 8.4-10.2 L (test code = 697) EGFR (BEAKER) (test 13 mL/min/1.73 ESTIMA RYAN GFR IS code = 1092) sq m NOT ACCURATE CREATININE CLEARANCE IN PREDICTING GLOMERULAR FILTRATION RATE . ESTIMATED GFR I S NOT APPLICABLE FOR DIALYSIS PATIEN TS. HEPATIC FUNCTION [id number] 07:37:00 Test Item Value Reference Range Interpretation Comments TOTAL PROTEIN (BEAKER) (test code = 7.0 gm/dL 6.0-8.3 770) ALBUMIN (BEAKER) (test code = 1145) 3.2 g/dL 3.5-5.0 L BILIRUBIN TOTAL (BEAKER) (test code 1.1 mg/dL 0.2-1.2 = 377) BILIRUBIN DIRECT (BEAKER) (test 0.5 mg/dL 0.1-0.5 code = 706) ALKALINE PHOSPHATASE (BEAKER) (test 93 U/L 40-150 code = 346) AST (SGOT) (BEAKER) (test code = 13 U/L 5-34 353) ALT (SGPT) (BEAKER) (test code = 12 U/L 6-55 347) CBC W/PLT COUNT & AUTO [id number] 06:02:00 Test Item Value Reference Range Interpretation Comments WHITE BLOOD CELL COUNT (BEAKER) 4.2 K/ L 3.5-10.5 (test code = 775) RED BLOOD CELL COUNT (BEAKER) 3.01 M/ L 3.93-5.22 L (test code = 761) HEMOGLOBIN (BEAKER) (test code = 7.5 GM/DL 11.2-15.7 L 410) HEMATOCRIT (BEAKER) (test code = 24.4 % 34.1-44.9 L 411) MEAN CORPUSCULAR VOLUME (BEAKER) 81.1 fL 79.4-94.8 (test code = 753) MEAN CORPUSCULAR HEMOGLOBIN 24.9 pg 25.6-32.2 L (BEAKER) (test code = 751) MEAN CORPUSCULAR HEMOGLOBIN CONC 30.7 GM/DL 32.2-35.5 L (BEAKER) (test code = 752) RED CELL DISTRIBUTION WIDTH 14.8 % 11.7-14.4 H (BEAKER) (test code = 412) PLATELET COUNT (BEAKER) (test 220 K/CU MM 150-450 code = 756) MEAN PLATELET VOLUME (BEAKER) 10.3 fL 9.4-12.3 (test code = 754) NUCLEATED RED BLOOD CELLS 0 /100 WBC 0-0 (BEAKER) (test code = 413) NEUTROPHILS RELATIVE PERCENT 52 % (BEAKER) (test code = 429) LYMPHOCYTES RELATIVE PERCENT 32 % (BEAKER) (test code = 430) MONOCYTES RELATIVE PERCENT 11 % (BEAKER) (test code = 431) EOSINOPHILS RELATIVE PERCENT 4 % (BEAKER) (test code = 432) BASOPHILS RELATIVE PERCENT 1 % (BEAKER) (test code = 437) NEUTROPHILS ABSOLUTE COUNT 2.14 K/ L 1.56-6.13 (BEAKER) (test code = 670) LYMPHOCYTES ABSOLUTE COUNT 1.32 K/ L 1.18-3.74 (BEAKER) (test code = 414) MONOCYTES ABSOLUTE COUNT (BEAKER) 0.44 K/ L 0.24-0.36 H (test code = 415) EOSINOPHILS ABSOLUTE COUNT 0.16 K/ L 0.04-0.36 (BEAKER) (test code = 416) BASOPHILS ABSOLUTE COUNT (BEAKER) 0.04 K/ L 0.01-0.08 (test code = 417) IMMATURE GRANULOCYTES-RELATIVE 1 % 0-1 PERCENT (BEAKER) (test code = 2801) POCT-GLUCOSE [id number] 21:57:00 Test Item Value Reference Range Interpretation Comments POC-GLUCOSE METER 156 mg/dL 70-110 H TESTED AT [facility] 6720 (BEAKER) ([facility] = [facility] 1538) [address] POCT-GLUCOSE [id number] 17:25:00 Test Item Value Reference Range Interpretation Comments POC-GLUCOSE METER 111 mg/dL 70-110 H TESTED AT [place] [address] ([facility]) (test code = [place] [facility] 1538) [address] BODY FLUID CULTURE + GRAM [id number] 15:07:00 Test Item Value Reference Range Interpretation Comments CULTURE ([facility] (test code No growth = 1095) GRAM STAIN RESULT ([facility]) <1+ WBCs (test code = 1123) GRAM STAIN RESULT ([facility]) No organisms seen (test code = 16387) POCT-GLUCOSE [id number] 12:46:00 Test Item Value Reference Range Interpretation Comments POC-GLUCOSE METER 87 mg/dL 70-110 TESTED AT [place] [address] ([facility]) (test code = [facility] Jack [facility] [address] 1538) TACROLIMUS [id number] 11:03:00 Test Item Value Reference Range Interpretation Comments TACROLIMUS BLOOD ([facility]) (test 10.0 ng/mL 10.0-20.0 code = 657) POCT-GLUCOSE [id number] 08:16:00 Test Item Value Reference Range Interpretation Comments POC-GLUCOSE METER 126 mg/dL 70-110 H TESTED AT [place] [address] ([facility]) (test code = [facility] Jack [facility] 1538) [address] BASIC METABOLIC [id number] 06:40:00 Test Item Value Reference Range Interpretation Comments SODIUM (BEAKER) 133 meq/L 136-145 L (test code = 381) POTASSIUM (BEAKER) 4.8 meq/L 3.5-5.1 (test code = 379) CHLORIDE (BEAKER) 106 meq/L 98-107 (test code = 382) CO2 (BEAKER) (test 19 meq/L 22-29 L code = 355) BLOOD UREA NITROGEN 71 mg/dL 7-21 H (BEAKER) (test code = 354) CREATININE (BEAKER) 3.44 mg/dL 0.57-1.25 H (test code = 358) GLUCOSE RANDOM 77 mg/dL 70-105 (BEAKER) (test code = 652) CALCIUM (BEAKER) 8.4 mg/dL 8.4-10.2 (test code = 697) EGFR (BEAKER) (test 13 mL/min/1.73 ESTIMA RYAN GFR IS code = 1092) sq m NOT ACCURATE CREATININE CLEARANCE IN PREDICTING GLOMERULAR FILTRATION RATE . ESTIMATED GFR I S NOT APPLICABLE FOR DIALYSIS PATIEN TS. HEPATIC FUNCTION [id number] 06:33:00 Test Item Value Reference Range Interpretation Comments TOTAL PROTEIN (BEAKER) (test code = 6.9 gm/dL 6.0-8.3 770) ALBUMIN (BEAKER) (test code = 1145) 3.1 g/dL 3.5-5.0 L BILIRUBIN TOTAL (BEAKER) (test code 0.9 mg/dL 0.2-1.2 = 377) BILIRUBIN DIRECT (BEAKER) (test 0.5 mg/dL 0.1-0.5 code = 706) ALKALINE PHOSPHATASE (BEAKER) (test 93 U/L 40-150 code = 346) AST (SGOT) (BEAKER) (test code = 16 U/L 5-34 353) ALT (SGPT) (BEAKER) (test code = 9 U/L 6-55 347) CBC W/PLT COUNT & AUTO [id number] 05:51:00 Test Item Value Reference Range Interpretation Comments WHITE BLOOD CELL COUNT (BEAKER) 4.7 K/ L 3.5-10.5 (test code = 775) RED BLOOD CELL COUNT (BEAKER) 3.01 M/ L 3.93-5.22 L (test code = 761) HEMOGLOBIN (BEAKER) (test code = 7.5 GM/DL 11.2-15.7 L 410) HEMATOCRIT (BEAKER) (test code = 24.8 % 34.1-44.9 L 411) MEAN CORPUSCULAR VOLUME (BEAKER) 82.4 fL 79.4-94.8 (test code = 753) MEAN CORPUSCULAR HEMOGLOBIN 24.9 pg 25.6-32.2 L (BEAKER) (test code = 751) MEAN CORPUSCULAR HEMOGLOBIN CONC 30.2 GM/DL 32.2-35.5 L (BEAKER) (test code = 752) RED CELL DISTRIBUTION WIDTH 14.9 % 11.7-14.4 H (BEAKER) (test code = 412) PLATELET COUNT (BEAKER) (test 199 K/CU MM 150-450 code = 756) MEAN PLATELET VOLUME (BEAKER) 9.4 fL 9.4-12.3 (test code = 754) NUCLEATED RED BLOOD CELLS 0 /100 WBC 0-0 (BEAKER) (test code = 413) NEUTROPHILS RELATIVE PERCENT 55 % (BEAKER) (test code = 429) LYMPHOCYTES RELATIVE PERCENT 27 % (BEAKER) (test code = 430) MONOCYTES RELATIVE PERCENT 10 % (BEAKER) (test code = 431) EOSINOPHILS RELATIVE PERCENT 4 % (BEAKER) (test code = 432) BASOPHILS RELATIVE PERCENT 1 % (BEAKER) (test code = 437) NEUTROPHILS ABSOLUTE COUNT 2.60 K/ L 1.56-6.13 (BEAKER) (test code = 670) LYMPHOCYTES ABSOLUTE COUNT 1.29 K/ L 1.18-3.74 (BEAKER) (test code = 414) MONOCYTES ABSOLUTE COUNT (BEAKER) 0.49 K/ L 0.24-0.36 H (test code = 415) EOSINOPHILS ABSOLUTE COUNT 0.19 K/ L 0.04-0.36 (BEAKER) (test code = 416) BASOPHILS ABSOLUTE COUNT (BEAKER) 0.05 K/ L 0.01-0.08 (test code = 417) IMMATURE GRANULOCYTES-RELATIVE 2 % 0-1 H PERCENT (BEAKER) (test code = 2801) POCT-GLUCOSE [id number] 21:41:00 Test Item Value Reference Range Interpretation Comments POC-GLUCOSE METER 135 mg/dL 70-110 H TESTED AT [place] [address] ([facility]) (test code = BRENDA Santiago [facility] 1538) [id number] 20:16:00 Test Item Value Reference Range Interpretation Comments FERRITIN (BEAKER) (test code = 361) 73 ng/mL 5-275 POCT-GLUCOSE [id number] 18:07:00 Test Item Value Reference Range Interpretation Comments POC-GLUCOSE METER 158 mg/dL 70-110 H TESTED AT [place] [address] ([facility]) (test code = BREN[place] Santiago [facility] 1538) [address] RETICULOCYTE [id number] 14:40:00 Test Item Value Reference Range Interpretation Comments RETICULOCYTE COUNT PCT (BEAKER) (test 3.7 % 0.5-1.7 H code = 575) HEPATITIS B CORE ANTIBODY, [id number] 14:27:00 Test Item Value Reference Range Interpretation Comments HEPATITIS B CORE TOTAL ANTIBODY Nonreactive Nonreactive (BEAKER) (test code = 497) TSH/FREE T4 IF [id number] 14:27:00 Test Item Value Reference Range Interpretation Comments THYROID STIMULATING HORMONE 1.44 uIU/mL 0.35-4.94 (BEAKER) (test code = 772) [id number] 14:20:00 Test Item Value Reference Range Interpretation Comments PROTIME (BEAKER) (test code = 14.7 seconds 11.9-14.2 H 759) INR (BEAKER) (test code = 370) 1.2 <=5.9 PARTIAL THROMBOPLASTIN TIME 35.3 seconds 22.5-36.0 (BEAKER) (test code = 760) Effective 08/20/2018: PT Reference Range ChangeNew: 11.9-14.2 Previous: 11.7- 14.7RECOMMENDED COUMADIN/WARFARIN INR THERAPY RANGESSTANDARD DOSE: 2.0-3.0 Includes: PROPHYLAXIS for venous thrombosis, systemic embolization; TREATMENT for venous thrombosis and/or pulmonary embolus.HIGH RISK: Target INR is2.5-3.5 for patients wiht mechanical heart valves.PTH, [id number] 14:07:00 Test Item Value Reference Range Interpretation Comments PARATHYROID HORMONE INTACT 311.0 pg/mL 8.5-72.5 H (BEAKER) (test code = 577) IRON, TIBC, % SAT. (WITHOUT FERRITIN)2018-09-06 14:00:00 Test Item Value Reference Range Interpretation Comments IRON (BEAKER) (test code = 547) 24.0 ug/dL 40.0-160.0 L TOTAL IRON BINDING CAPACITY 308 ug/dL 250-450 (BEAKER) (test code = 769) IRON % SATURATION (2) (BEAKER) 8 % 20-55 L (test code = 2590) TACROLIMUS [id number] 13:41:00 Test Item Value Reference Range Interpretation Comments TACROLIMUS BLOOD (BEAKER) (test 7.2 ng/mL 10.0-20.0 L code = 657) POCT-GLUCOSE [id number] 11:43:00 Test Item Value Reference Range Interpretation Comments POC-GLUCOSE METER 191 mg/dL 70-[address] [facility] 6720 (BEAKER) (test code = BREN[place] 1538) [id number] POCT-GLUCOSE [id number] 08:45:00 Test Item Value Reference Range Interpretation Comments POC-GLUCOSE METER 119 mg/dL 70-[address] [facility] 6720 (BEAKER) (test code = BR[place] Santiago [place] 1538) [address] BASIC METABOLIC [id number] 07:28:00 Test Item Value Reference Range Interpretation Comments SODIUM (BEAKER) 133 meq/L 136-145 L (test code = 381) POTASSIUM (BEAKER) 5.1 meq/L 3.5-5.1 Specimen slightly (test code = 379) hemolyzed CHLORIDE (BEAKER) 107 meq/L 98-107 (test code = 382) CO2 (BEAKER) (test 18 meq/L 22-29 L code = 355) BLOOD UREA NITROGEN 71 mg/dL 7-21 H (BEAKER) (test code = 354) CREATININE (BEAKER) 3.46 mg/dL 0.57-1.25 H Specimen slightly (test code = 358) hemolyzed GLUCOSE RANDOM 100 mg/dL 70-105 (BEAKER) (test code = 652) CALCIUM (BEAKER) 8.5 mg/dL 8.4-10.2 (test code = 697) EGFR (BEAKER) (test 13 mL/min/1.73 ESTIMA RYAN GFR IS code = 1092) sq m NOT ACCURATE CREATININE CLEARANCE IN PREDICTING GLOMERULAR FILTRATION RATE . ESTIMATED GFR I S NOT APPLICABLE FOR DIALYSIS PATIEN TS. HEPATIC FUNCTION [id number] 07:26:00 Test Item Value Reference Range Interpretation Comments TOTAL PROTEIN (BEAKER) 7.3 gm/dL 6.0-8.3 Speci men slightly (test code = 770) hemolyzed ALBUMIN (BEAKER) (test 3.2 g/dL 3.5-5.0 L Speci men slightly code = 1145) hemolyzed BILIRUBIN TOTAL 1.1 mg/dL 0.2-1.2 Specimen sli ghtly (BEAKER) (test code = hemoly zed 377) BILIRUBIN DIRECT 0.5 mg/dL 0.1-0.5 Specimen sl ightly (BEAKER) (test code = hemoly zed 706) ALKALINE PHOSPHATASE 93 U/L 40-150 (BEAKER) (test code = 346) AST (SGOT) (BEAKER) 21 U/L 5-34 Specimen slightly (test code = 353) hemolyzed ALT (SGPT) (BEAKER) 11 U/L 6-55 Specimen slightly (test code = 347) hemolyzed CBC W/PLT COUNT & AUTO [id number] 06:31:00 Test Item Value Reference Range Interpretation Comments WHITE BLOOD CELL COUNT (BEAKER) 4.0 K/ L 3.5-10.5 (test code = 775) RED BLOOD CELL COUNT (BEAKER) 2.97 M/ L 3.93-5.22 L (test code = 761) HEMOGLOBIN (BEAKER) (test code = 7.5 GM/DL 11.2-15.7 L 410) HEMATOCRIT (BEAKER) (test code = 24.6 % 34.1-44.9 L 411) MEAN CORPUSCULAR VOLUME (BEAKER) 82.8 fL 79.4-94.8 (test code = 753) MEAN CORPUSCULAR HEMOGLOBIN 25.3 pg 25.6-32.2 L (BEAKER) (test code = 751) MEAN CORPUSCULAR HEMOGLOBIN CONC 30.5 GM/DL 32.2-35.5 L (BEAKER) (test code = 752) RED CELL DISTRIBUTION WIDTH 15.3 % 11.7-14.4 H (BEAKER) (test code = 412) PLATELET COUNT (BEAKER) (test 207 K/CU MM 150-450 code = 756) MEAN PLATELET VOLUME (BEAKER) 10.6 fL 9.4-12.3 (test code = 754) NUCLEATED RED BLOOD CELLS 0 /100 WBC 0-0 (BEAKER) (test code = 413) NEUTROPHILS RELATIVE PERCENT 51 % (BEAKER) (test code = 429) LYMPHOCYTES RELATIVE PERCENT 31 % (BEAKER) (test code = 430) MONOCYTES RELATIVE PERCENT 10 % (BEAKER) (test code = 431) EOSINOPHILS RELATIVE PERCENT 5 % (BEAKER) (test code = 432) BASOPHILS RELATIVE PERCENT 1 % (BEAKER) (test code = 437) NEUTROPHILS ABSOLUTE COUNT 2.04 K/ L 1.56-6.13 (BEAKER) (test code = 670) LYMPHOCYTES ABSOLUTE COUNT 1.24 K/ L 1.18-3.74 (BEAKER) (test code = 414) MONOCYTES ABSOLUTE COUNT (BEAKER) 0.40 K/ L 0.24-0.36 H (test code = 415) EOSINOPHILS ABSOLUTE COUNT 0.20 K/ L 0.04-0.36 (BEAKER) (test code = 416) BASOPHILS ABSOLUTE COUNT (BEAKER) 0.05 K/ L 0.01-0.08 (test code = 417) IMMATURE GRANULOCYTES-RELATIVE 2 % 0-1 H PERCENT (BEAKER) (test code = 2801) POCT-GLUCOSE [id number] 22:37:00 Test Item Value Reference Range Interpretation Comments POC-GLUCOSE METER 144 mg/dL 70-[address] [facility] [address] ([facility]) (test code = [place] [address]) [id number] POCT-GLUCOSE [id number] 16:48:00 Test Item Value Reference Range Interpretation Comments POC-GLUCOSE METER 207 mg/dL 70-110 H TESTED AT [place] [address] ([facility]) (test code = [place] [address]38) [id number] POCT-GLUCOSE [id number] 12:16:00 Test Item Value Reference Range Interpretation Comments POC-GLUCOSE METER 191 mg/dL 70-[address] [facility] [address] ([facility]) (test code = [place] [address]) [id number] TACROLIMUS [id number] 11:23:00 Test Item Value Reference Range Interpretation Comments TACROLIMUS BLOOD (BEAKER) (test 5.7 ng/mL 10.0-20.0 L code = 657) BASIC METABOLIC [id number] 06:24:00 Test Item Value Reference Range Interpretation Comments SODIUM (BEAKER) 133 meq/L 136-145 L (test code = 381) POTASSIUM (BEAKER) 5.6 meq/L 3.5-5.1 H (test code = 379) CHLORIDE (BEAKER) 108 meq/L 98-107 H (test code = 382) CO2 (BEAKER) (test 19 meq/L 22-29 L code = 355) BLOOD UREA NITROGEN 73 mg/dL 7-21 H (BEAKER) (test code = 354) CREATININE (BEAKER) 3.71 mg/dL 0.57-1.25 H (test code = 358) GLUCOSE RANDOM 136 mg/dL 70-105 H (BEAKER) (test code = 652) CALCIUM (BEAKER) 8.4 mg/dL 8.4-10.2 (test code = 697) EGFR (BEAKER) (test 12 mL/min/1.73 ESTIMA RYAN GFR IS code = 1092) sq m NOT ACCURATE CREATININE CLEARANCE IN PREDICTING GLOMERULAR FILTRATION RATE . ESTIMATED GFR I S NOT APPLICABLE FOR DIALYSIS PATIEN TS. HEPATIC FUNCTION [id number] 06:22:00 Test Item Value Reference Range Interpretation Comments TOTAL PROTEIN (BEAKER) (test code = 7.0 gm/dL 6.0-8.3 770) ALBUMIN (BEAKER) (test code = 1145) 3.1 g/dL 3.5-5.0 L BILIRUBIN TOTAL (BEAKER) (test code 1.1 mg/dL 0.2-1.2 = 377) BILIRUBIN DIRECT (BEAKER) (test 0.5 mg/dL 0.1-0.5 code = 706) ALKALINE PHOSPHATASE (BEAKER) (test 88 U/L 40-150 code = 346) AST (SGOT) (BEAKER) (test code = 15 U/L 5-34 353) ALT (SGPT) (BEAKER) (test code = 11 U/L 6-55 347) POCT-GLUCOSE [id number] 22:19:00 Test Item Value Reference Range Interpretation Comments POC-GLUCOSE METER 195 mg/dL 70-[address] [facility] 6720 (BEAKER) (test code = [place] 1538) [address] BODY FLUID CELL COUNT WITH [id number] 21:04:00 Test Item Value Reference Range Interpretation Comments APPEARANCE FLUID (BEAKER) (test Hazy Clear A code = 510) COLOR FLUID (BEAKER) (test code Cuca Colorless, Straw A = 511) RBC FLUID (BEAKER) (test code = 5300 /cu mm <=1 H 513) ADJUSTED WBC FLUID (BEAKER) 634 /cu mm <=5 H (test code = 1691) LINING CELLS (BEAKER) (test code 6 /cu mm <=1 H = 1590) NEUTROPHILS FLUID (BEAKER) (test 17 % code = 1656) LYMPHS FLUID (BEAKER) (test code 59 % = 488) MONO/MACROPHAGE FLUID (BEAKER) 24 % (test code = 489) EOSINOPHILS FLUID (BEAKER) (test 0 % code = 491) BASO FLUID (BEAKER) (test code = 0 % 492) CONTAINER BODY FLUID (BEAKER) EDTA Tube (test code = 2873) PH, BODY [id number] 19:43:00 Test Item Value Reference Range Interpretation Comments PH, BODY FLUID (BEAKER) (test code = 7.80 1530) LACTATE DEHYDROGENASE (LDH), BODY [id number] 19:41:00 Test Item Value Reference Range Interpretation Comments LACTATE DEHYDROGENASE FLUID < U/L Light's criteria (BEAKER) (test code = 634) identifies effusions if one or more are pre Absence of reference range indicates that normals have not been defined.Assay performance has not been validated for this type of specimen.ALBUMIN, BODY FLUID 2018-09-04 19:36:00 Test Item Value Reference Range Interpretation Comments ALBUMIN FLUID (BEAKER) (test code = 1.4 gm/dL 501) Reference Range: No Normals Assay performance has not been validated for this type of specimen.PROTEIN, BODY [id number] 19:31:00 Test Item Value Reference Range Interpretation Comments PROTEIN FLUID (BEAKER) 2.5 g/dL Light's criteria identifies (test code = 579) effusions if one or more are pre Absence of reference range indicates that normals have not been defined.Assay performance has not been validated for this type of specimen.RAD, CHEST, 1 VIEW, NON [id number] 19:14:00Reason for exam:->post right sided thoracentesisShould this [...] lung consolidation may reflect associated passive atelectasis. Underlyin g pneumonia or mass lesion cannot be excluded. Signed: Yann Doe MDRarielort Verified Date/Time: 09/04/2018 19:14:07 Reading Location: [address] Reading Room HEPATIC FUNCTION [id number] 13:48:00 Test Item Value Reference Range Interpretation Comments TOTAL PROTEIN (BEAKER) (test code = 7.7 gm/dL 6.0-8.3 770) ALBUMIN (BEAKER) (test code = 1145) 3.6 g/dL 3.5-5.0 BILIRUBIN TOTAL (BEAKER) (test code 1.3 mg/dL 0.2-1.2 H = 377) BILIRUBIN DIRECT (BEAKER) (test 0.6 mg/dL 0.1-0.5 H code = 706) ALKALINE PHOSPHATASE (BEAKER) (test 96 U/L 40-150 code = 346) AST (SGOT) (BEAKER) (test code = 15 U/L 5-34 353) ALT (SGPT) (BEAKER) (test code = 12 U/L 6-55 347) POCT-GLUCOSE [id number] 12:07:00 Test Item Value Reference Range Interpretation Comments POC-GLUCOSE METER 171 mg/dL 70-[address] [facility] 6720 (BEAKER) (test code = [place] [facility] 1538) [id number] RAD, CHEST, 1 VIEW, NON [id number] 09:39:00Reason for exam:->assess lung volumesShould this be performed at the bedside?->YesFINAL REPORT Chest, 1 view, 09/04/2018 6:27 AM. History: Shortness of breath. Comparison: 08/21/2018. Discussion: The cardiomediastinal silhouette and pulmonary vasculature are prominent with hazy bilateral perihilar and bibasilar opacities, with blunting of the chest from the sulci. The soft tissues and osseous structures are intact. IMPRESSION: CHF with bibasilar atelectasis and mild bilateral pleural effusions. Signed: Alfredo Casas MDReport Verified Date/Time: 09/04/2018 09:39:09 Reading Location: [facility] Reading Room POCT-GLUCOSE [id number] 09:09:00 Test Item Value Reference Range Interpretation Comments POC-GLUCOSE METER 211 mg/dL 70-[address] [facility] 6720 (BEAKER) (test code = [place] 1538) [address] TACROLIMUS [id number] 09:06:00 Test Item Value Reference Range Interpretation Comments TACROLIMUS BLOOD (BEAKER) (test 13.6 ng/mL 10.0-20.0 code = 657) BASIC METABOLIC [id number] 06:49:00 Test Item Value Reference Range Interpretation Comments SODIUM (BEAKER) 136 meq/L 136-145 (test code = 381) POTASSIUM (BEAKER) 5.3 meq/L 3.5-5.1 H (test code = 379) CHLORIDE (BEAKER) 111 meq/L 98-107 H (test code = 382) CO2 (BEAKER) (test 19 meq/L 22-29 L code = 355) BLOOD UREA NITROGEN 71 mg/dL 7-21 H (BEAKER) (test code = 354) CREATININE (BEAKER) 3.91 mg/dL 0.57-1.25 H (test code = 358) GLUCOSE RANDOM 133 mg/dL 70-105 H (BEAKER) (test code = 652) CALCIUM (BEAKER) 8.8 mg/dL 8.4-10.2 (test code = 697) EGFR (BEAKER) (test 12 mL/min/1.73 ESTIMA RYAN GFR IS code = 1092) sq m NOT ACCURATE CREATININE CLEARANCE IN PREDICTING GLOMERULAR FILTRATION RATE . ESTIMATED GFR I S NOT APPLICABLE FOR DIALYSIS PATIEN TS. PROTHROMBIN [id number] 06:23:00 Test Item Value Reference Range Interpretation Comments PROTIME (BEAKER) (test code = 15.2 seconds 11.9-14.2 H 759) INR (BEAKER) (test code = 370) 1.3 <=5.9 Effective 08/20/2018: PT Reference Range ChangeNew: 11.9-14.2 Previous: 11.7- 14.7RECOMMENDED COUMADIN/WARFARIN INR THERAPY RANGESSTANDARD DOSE: 2.0-3.0 Includes: PROPHYLAXIS for venous thrombosis, systemic embolization; TREATMENT for venous thrombosis and/or pulmonary embolus.HIGH RISK: Target INR is2.5-3.5 for patients wiht mechanical heart valves.CBC W/PLT COUNT & AUTO [id number] 06:16:00 Test Item Value Reference Range Interpretation Comments WHITE BLOOD CELL COUNT (BEAKER) 4.4 K/ L 3.5-10.5 (test code = 775) RED BLOOD CELL COUNT (BEAKER) 2.93 M/ L 3.93-5.22 L (test code = 761) HEMOGLOBIN (BEAKER) (test code = 7.3 GM/DL 11.2-15.7 L 410) HEMATOCRIT (BEAKER) (test code = 24.4 % 34.1-44.9 L 411) MEAN CORPUSCULAR VOLUME (BEAKER) 83.3 fL 79.4-94.8 (test code = 753) MEAN CORPUSCULAR HEMOGLOBIN 24.9 pg 25.6-32.2 L (BEAKER) (test code = 751) MEAN CORPUSCULAR HEMOGLOBIN CONC 29.9 GM/DL 32.2-35.5 L (BEAKER) (test code = 752) RED CELL DISTRIBUTION WIDTH 15.2 % 11.7-14.4 H (BEAKER) (test code = 412) PLATELET COUNT (BEAKER) (test 165 K/CU MM 150-450 code = 756) MEAN PLATELET VOLUME (BEAKER) 9.6 fL 9.4-12.3 (test code = 754) NUCLEATED RED BLOOD CELLS 0 /100 WBC 0-0 (BEAKER) (test code = 413) NEUTROPHILS RELATIVE PERCENT 62 % (BEAKER) (test code = 429) LYMPHOCYTES RELATIVE PERCENT 24 % (BEAKER) (test code = 430) MONOCYTES RELATIVE PERCENT 9 % (BEAKER) (test code = 431) EOSINOPHILS RELATIVE PERCENT 2 % (BEAKER) (test code = 432) BASOPHILS RELATIVE PERCENT 1 % (BEAKER) (test code = 437) NEUTROPHILS ABSOLUTE COUNT 2.77 K/ L 1.56-6.13 (BEAKER) (test code = 670) LYMPHOCYTES ABSOLUTE COUNT 1.06 K/ L 1.18-3.74 L (BEAKER) (test code = 414) MONOCYTES ABSOLUTE COUNT (BEAKER) 0.40 K/ L 0.24-0.36 H (test code = 415) EOSINOPHILS ABSOLUTE COUNT 0.08 K/ L 0.04-0.36 (BEAKER) (test code = 416) BASOPHILS ABSOLUTE COUNT (BEAKER) 0.03 K/ L 0.01-0.08 (test code = 417) IMMATURE GRANULOCYTES-RELATIVE 2 % 0-1 H PERCENT (BEAKER) (test code = 2801) POCT-GLUCOSE [id number] 01:17:00 Test Item Value Reference Range Interpretation Comments POC-GLUCOSE METER 172 mg/dL 70-[address] [facility] 6720 ([facility]) (test code = [place] 1538) [id number] URINE IMMUNOFIXATION, [id number] 16:27:00 Test Item Value Reference Range Interpretation Comments PROTEIN, URINE 240 mg/dL 0-14 H (AKER) (test code = 1569) ALBUMIN URINE ELP 59.2 % (AKER) (test code = 1018) GAMMA GLOBULIN 40.8 % URINE (AKER) (test code = 1015) URINE TOMA ID-402 Urine immunofixation ([facility]) (test code electrophoresis reveals no = 2602) monoclonal proteins or free light chains. [id number] Ian Morin M.D. 2 ([facility]) (test (electonic signature) code = 4812) IMMUNOFIXATION ELECTROPHORESIS (TOMA)2018-08-27 16:09:00 Test Item Value Reference Range Interpretation Comments IMMUNOGLOBULIN G (IGG) 1790 mg/dL 540-1,822 (AKER) (test code = 427) IMMUNOGLOBULIN A (IGA) 282 mg/dL 63-484 (BEAKER) (test code = 639) IMMUNOGLOBULIN M (IGM) 52 mg/dL 22-293 (BEAKER) (test code = 638) SERUM TOMA ID (AKER) No monoclonal (test code = 1814) proteins detected. Polyclonal distribution of immunoglobulins. [id number] Ian Morin M.D. ([facility]) (test code = (electonic signature) 4375) BODY FLUID CULTURE + GRAM [id number] 15:47:00 Test Item Value Reference Range Interpretation Comments CULTURE ([facility]) (test code No growth = 1095) GRAM STAIN RESULT ([facility]) <1+ WBCs (test code = 1123) GRAM STAIN RESULT ([facility]) No organisms seen (test code = 73984) POCT-GLUCOSE [id number] 12:14:00 Test Item Value Reference Range Interpretation Comments POC-GLUCOSE METER 210 mg/dL 70-[address] [facility] 6720 ([facility]) (test code = [place] [facility] 1538) [address] [id number] 12:01:00 Test Item Value Reference Range Interpretation Comments POTASSIUM (BEAKER) (test code = 5.2 meq/L 3.5-5.1 H 379) TACROLIMUS [id number] 11:52:00 Test Item Value Reference Range Interpretation Comments TACROLIMUS BLOOD (AKER) (test 6.4 ng/mL 10.0-20.0 L code = 657) Please draw 30 min prior to AM dose. Thanks!POCT-GLUCOSE [id number] 08:13:00 Test Item Value Reference Range Interpretation Comments POC-GLUCOSE METER 143 mg/dL 70-110 H TESTED AT [place] [address] ([facility]) (test code = [facility] 1538) [address] CREATININE [id number] 07:26:00 Test Item Value Reference Range Interpretation Comments CREATININE CLEARANCE (BEAKER) 10.9 mL/min 70.0-140.0 L (test code = 357) VOLUME, TOTAL (BEAKER) (test code 800 ml = 1457) CREATININE URINE (BEAKER) (test 76.9 mg/dL code = 375) PATIENT HEIGHT (CM) (BEAKER) 167.0 cm (test code = 2799) PATIENT WEIGHT (KG) (BEAKER) 95.300 kg (test code = 2800) PROTEIN, 24 HOUR [id number] 07:26:00 Test Item Value Reference Range Interpretation Comments PROTEIN, 24HR URINE (BEAKER) 2000 mg/24hr 0-300 H (test code = 1570) VOLUME, TOTAL (BEAKER) (test 800 ml code = 1457) PROTEIN, URINE (BEAKER) (test 250 mg/dL 0-14 H code = 1569) COMPREHENSIVE METABOLIC [id number] 07:17:00 Test Item Value Reference Range Interpretation Comments TOTAL PROTEIN 6.6 gm/dL 6.0-8.3 (BEAKER) (test code = 770) ALBUMIN (BEAKER) 3.0 g/dL 3.5-5.0 L (test code = 1145) ALKALINE PHOSPHATASE 88 U/L 40-150 (BEAKER) (test code = 346) BILIRUBIN TOTAL 0.8 mg/dL 0.2-1.2 (BEAKER) (test code = 377) SODIUM (BEAKER) (test 136 meq/L 136-145 code = 381) POTASSIUM (BEAKER) 5.5 meq/L 3.5-5.1 H (test code = 379) CHLORIDE (BEAKER) 108 meq/L 98-107 H (test code = 382) CO2 (BEAKER) (test 24 meq/L 22-29 code = 355) BLOOD UREA NITROGEN 51 mg/dL 7-21 H (BEAKER) (test code = 354) CREATININE (BEAKER) 3.23 mg/dL 0.57-1.25 H (test code = 358) GLUCOSE RANDOM 129 mg/dL 70-105 H (BEAKER) (test code = 652) CALCIUM (BEAKER) 8.3 mg/dL 8.4-10.2 L (test code = 697) AST (SGOT) (BEAKER) 23 U/L 5-34 (test code = 353) ALT (SGPT) (BEAKER) 24 U/L 6-55 (test code = 347) EGFR (BEAKER) (test 14 mL/min/1.73 ESTIMA RYAN GFR IS code = 1092) sq m NOT ACCURATE CREATININE CLEARANCE IN PREDICTING GLOMERULAR FILTRATION RATE . ESTIMATED GFR I S NOT APPLICABLE FOR DIALYSIS PATIEN TS. CBC (HEMOGRAM ONLY)2018-08-23 06:58:00 Test Item Value Reference Range Interpretation Comments WHITE BLOOD CELL COUNT (BEAKER) 4.0 K/ L 3.5-10.5 (test code = 775) RED BLOOD CELL COUNT (BEAKER) 3.16 M/ L 3.93-5.22 L (test code = 761) HEMOGLOBIN (BEAKER) (test code = 7.9 GM/DL 11.2-15.7 L 410) HEMATOCRIT (BEAKER) (test code = 25.6 % 34.1-44.9 L 411) MEAN CORPUSCULAR VOLUME (BEAKER) 81.0 fL 79.4-94.8 (test code = 753) MEAN CORPUSCULAR HEMOGLOBIN 25.0 pg 25.6-32.2 L (AKER) (test code = 751) MEAN CORPUSCULAR HEMOGLOBIN CONC 30.9 GM/DL 32.2-35.5 L (AKER) (test code = 752) RED CELL DISTRIBUTION WIDTH 14.2 % 11.7-14.4 (AKER) (test code = 412) PLATELET COUNT ([facility]) (test 166 K/CU MM 150-450 code = 756) MEAN PLATELET VOLUME (AKER) 9.7 fL 9.4-12.3 (test code = 754) NUCLEATED RED BLOOD CELLS 0 /100 WBC 0-0 (AKER) (test code = 413) ANTI-NUCLEAR ANTIBODY (WO[facility])2018-08-23 06:01:00 Test Item Value Reference Range Interpretation Comments ANTI-NUCLEAR ANTIBODY ([facility]) ([facility]) Negative Negative (test code = 418) Test performed by IFA method.Test performed by IFA method.POCT-GLUCOSE METER 2018-08-22 21:18:00 Test Item Value Reference Range Interpretation Comments POC-GLUCOSE METER 231 mg/dL 70-[address] [facility] 6720 ([facility]) (test code = [facility] 1538) [address] URINE PROTEIN ELECTROPHORESIS, [id number] 18:38:00 Test Item Value Reference Range Interpretation Comments PROTEIN, URINE 240 mg/dL 0-14 H ([facility]) (test code = 1569) ALBUMIN URINE ELP 59.2 % ([facility]) (test code = 1018) GAMMA GLOBULIN URINE 40.8 % ([facility]) (test code = 1015) UPEP, ID-[id number] Urine protein study ([facility]) (test code consistent with = 2604) glomerular dysfunction. There is a possible band present within the gamma region. Refer to serum immunofixation electrophoresis. [id number] Karie Butcher MD ([facility]) (test code (electronic signature) = 2605) [id number] 17:59:00Medical Cytology Report Case: [id number] Authorizing Provider: Celestino Bailey MD Collected: 08/21/2018 1557 Ordering Location: [address] Received: 08/22/2018 0634 Pathologist: Mariano Cutler MD Specimen: Pleural, Right RIGHT PLEURAL FLUID (CYTOSPINS): - NO MALIGNANT CELLS IDENTIFIED (SEE COMMENT) - REACTIVE MESOTHELIAL CELLS WITH CHRONIC INFLAMMATION Signing Pathologist Direct Phone Line: [phone] signed by Mariano Cutler MD on 08/22/2018 at 5:59 PMOnly a small amount of fluid was received for cytology evaluation. If clinically discordant, repeat thoracentesis with larger amount of fluid sent for cytologyevaluation may be considered. [id number] pleural effusion, history of hepatocellular cancerRIGHT PLEURAL FLUID5 mls cuca; 4 cytospinsCollected: [id number]: [id number] [facility], [facility] of [facility]ology, [address] [place] [id number], [facility], [facility], [address] [place] [address], [facility]zbK[facility], Department of Pathology, [address] [place] [address], KHJB-GLUCOSE [id number] 17:07:00 Test Item Value Reference Range Interpretation Comments POC-GLUCOSE METER 174 mg/dL 70-[address] [facility] 67 (BEAKER) (test code = [place] [facility] 153) [address] PROTEIN ELECTROPHORESIS, [id number] 15:51:00 Test Item Value Reference Range Interpretation Comments ALBUMIN FRACTION 2.8 g/dL 3.5-5.5 L (BEAKER) (test code = 405) ALPHA 1 FRACTION 0.2 g/dL 0.2-0.4 (BEAKER) (test code = 389) ALPHA 2 FRACTION 0.7 g/dL 0.5-0.9 (BEAKER) (test code = 390) BETA FRACTION 0.8 g/dL 0.6-1.1 (BEAKER) (test code = 392) GAMMA GLOBULIN 1.7 g/dL 0.7-1.7 FRACTION (BEAKER) (test code = 391) INTERPRETATION-119 Albumin decreased. This (BEAKER) (test code may indicate protein = 2615) malnutrition or a protein losing state. There is a possible restriction present within the gamma region. Please refer to serum immunofixation electrophoresis. [id number] Karie Butcher MD ([facility]) (test code (electronic signature) = 2616) PROTEIN TOTAL SERUM, 6.2 gm/dL 6.0-8.3 SPEP ([facility]) (test code = 2660) RHEUMATOID FACTOR AB, REFLEX TO [id number] 12:56:00 Test Item Value Reference Range Interpretation Comments RHEUMATOID FACTOR ([facility]) (test Negative code = 573) [id number] 12:47:00 Test Item Value Reference Range Interpretation Comments RPR SCREEN ([facility]) (test code = Nonreactive Nonreactive 420) POCT-GLUCOSE [id number] 12:30:00 Test Item Value Reference Range Interpretation Comments POC-GLUCOSE METER 200 mg/dL 70-110 H TESTED AT [place] [address] ([facility]) (test code = [place] [facility] 1538) [address] OSMOLALITY, [id number] 11:29:00 Test Item Value Reference Range Interpretation Comments OSMOLALITY URINE ([facility]) (test 300 mOsm/kg 40-1,400 code = 614) OSMOLALITY, [id number] 10:58:00 Test Item Value Reference Range Interpretation Comments OSMOLALITY, SERUM ([facility]) (test 307 mOsm/kg 280-303 H code = 615) TACROLIMUS [id number] 09:13:00 Test Item Value Reference Range Interpretation Comments TACROLIMUS BLOOD ([facility]) (test 8.5 ng/mL 10.0-20.0 L code = 657) Please draw 30 min prior to AM dose. Thanks!POCT-GLUCOSE [id number] 09:01:00 Test Item Value Reference Range Interpretation Comments POC-GLUCOSE METER 156 mg/dL 70-110 H TESTED AT [place] [address] ([facility]) (test code = [place] [facility] 1538) [address] HEPATITIS PANEL, [id number] 07:30:00 Test Item Value Reference Range Interpretation Comments HEPATITIS A IGM ANTIBODY (AKER) Nonreactive Nonreactive (test code = 498) HEPATITIS B CORE IGM ANTIBODY Nonreactive Nonreactive ([facility]) (test code = 645) HEPATITIS C ANTIBODY ([facility]) Reactive Nonreactive A (test code = 367) HEPATITIS B SURFACE ANTIGEN (2) Nonreactive Nonreactive ([facility]) (test code = 2585) COMPREHENSIVE METABOLIC [id number] 06:31:00 Test Item Value Reference Range Interpretation Comments TOTAL PROTEIN 6.7 gm/dL 6.0-8.3 (BEAKER) (test code = 770) ALBUMIN (BEAKER) 3.0 g/dL 3.5-5.0 L (test code = 1145) ALKALINE PHOSPHATASE 86 U/L 40-150 (BEAKER) (test code = 346) BILIRUBIN TOTAL 0.7 mg/dL 0.2-1.2 (BEAKER) (test code = 377) SODIUM (BEAKER) (test 134 meq/L 136-145 L code = 381) POTASSIUM (BEAKER) 5.1 meq/L 3.5-5.1 (test code = 379) CHLORIDE (BEAKER) 106 meq/L 98-107 (test code = 382) CO2 (BEAKER) (test 23 meq/L 22-29 code = 355) BLOOD UREA NITROGEN 50 mg/dL 7-21 H (BEAKER) (test code = 354) CREATININE (BEAKER) 3.45 mg/dL 0.57-1.25 H (test code = 358) GLUCOSE RANDOM 158 mg/dL 70-105 H (BEAKER) (test code = 652) CALCIUM (BEAKER) 8.2 mg/dL 8.4-10.2 L (test code = 697) AST (SGOT) (BEAKER) 21 U/L 5-34 (test code = 353) ALT (SGPT) (BEAKER) 21 U/L 6-55 (test code = 347) EGFR (BEAKER) (test 13 mL/min/1.73 ESTIMA RYAN GFR IS code = 1092) sq m NOT ACCURATE CREATININE CLEARANCE IN PREDICTING GLOMERULAR FILTRATION RATE . ESTIMATED GFR I S NOT APPLICABLE FOR DIALYSIS PATIEN TS. CBC (HEMOGRAM ONLY)2018-08-22 05:51:00 Test Item Value Reference Range Interpretation Comments WHITE BLOOD CELL COUNT (BEAKER) 3.8 K/ L 3.5-10.5 (test code = 775) RED BLOOD CELL COUNT (BEAKER) 3.05 M/ L 3.93-5.22 L (test code = 761) HEMOGLOBIN (BEAKER) (test code = 7.6 GM/DL 11.2-15.7 L 410) HEMATOCRIT (BEAKER) (test code = 24.8 % 34.1-44.9 L 411) MEAN CORPUSCULAR VOLUME (BEAKER) 81.3 fL 79.4-94.8 (test code = 753) MEAN CORPUSCULAR HEMOGLOBIN 24.9 pg 25.6-32.2 L (BEAKER) (test code = 751) MEAN CORPUSCULAR HEMOGLOBIN CONC 30.6 GM/DL 32.2-35.5 L (BEAKER) (test code = 752) RED CELL DISTRIBUTION WIDTH 14.2 % 11.7-14.4 (BEAKER) (test code = 412) PLATELET COUNT (BEAKER) (test 161 K/CU MM 150-450 code = 756) MEAN PLATELET VOLUME (BEAKER) 9.5 fL 9.4-12.3 (test code = 754) NUCLEATED RED BLOOD CELLS 0 /100 WBC 0-0 (BEAKER) (test code = 413) HEPATITIS B CORE ANTIBODY, [id number] 22:36:00 Test Item Value Reference Range Interpretation Comments HEPATITIS B CORE TOTAL ANTIBODY Nonreactive Nonreactive (BEAKER) (test code = 497) HIV-1 ANTIGEN WITH HIV-1/2 [id number] 22:36:00 Test Item Value Reference Range Interpretation Comments HIV-1 ANTIGEN WITH HIV 1\T\2 Nonreactive Nonreactive ANTIBODY (2) (BEAKER) (test code = 2586) COMPLEMENT COMPONENT [id number] 22:13:00 Test Item Value Reference Range Interpretation Comments C3 COMPLEMENT ([facility]AKER) (test code = 81 mg/dL 82-193 L 393) COMPLEMENT COMPONENT [id number] 22:13:00 Test Item Value Reference Range Interpretation Comments C4 COMPLEMENT (BEAKER) (test code = 21 mg/dL 15-57 394) [id number] 22:11:00 Test Item Value Reference Range Interpretation Comments CREATININE (BEAKER) 3.45 mg/dL 0.57-1.25 H (test code = 358) EGFR (BEAKER) (test 13 mL/min/1.73 ESTIMA RYAN GFR IS code = 1092) sq m NOT ACCURATE CREATININE CLEARANCE IN PREDICTING GLOMERULAR FILTRATION RATE . ESTIMATED GFR I S NOT APPLICABLE FOR DIALYSIS PATIEN TS. POCT-GLUCOSE [id number] 21:35:00 Test Item Value Reference Range Interpretation Comments POC-GLUCOSE METER 244 mg/dL 70-[address] [facility] 67[address] (BEAKER) (test code = [place] 1538) [address] EOSINOPHIL SMEAR, [id number] 20:09:00 Test Item Value Reference Range Interpretation Comments EOSINOPHIL SMEAR, URINE (BEAKER) No EOS seen No EOS seen (test code = 5914) Many bacteria seen on stained smears.PROTEIN, RANDOM [id number] 19:59:00 Test Item Value Reference Range Interpretation Comments PROTEIN, URINE (BEAKER) (test code 265 mg/dL 0-14 H = 1569) PTH, [id number] 19:43:00 Test Item Value Reference Range Interpretation Comments PARATHYROID HORMONE INTACT 330.9 pg/mL 8.5-72.5 H (BEAKER) (test code = 577) URIC [id number] 19:36:00 Test Item Value Reference Range Interpretation Comments URIC ACID (BEAKER) (test code = 7.6 mg/dL 2.6-7.2 H 773) CHLORIDE, RANDOM [id number] 19:36:00 Test Item Value Reference Range Interpretation Comments CHLORIDE URINE (BEAKER) (test code = 29 meq/L 682) Reference Range: No NormalsCREATININE, RANDOM [id number] 19:36:00 Test Item Value Reference Range Interpretation Comments CREATININE URINE (BEAKER) (test 84.6 mg/dL code = 375) Reference Range: No NormalsPOTASSIUM, RANDOM [id number] 19:36:00 Test Item Value Reference Range Interpretation Comments POTASSIUM URINE (BEAKER) (test 14.7 meq/L code = 195) Reference Range: No NormalsSODIUM, RANDOM [id number] 19:36:00 Test Item Value Reference Range Interpretation Comments SODIUM URINE (BEAKER) (test code = 48 meq/L 243) Reference Range: No NormalsBODY FLUID CELL COUNT WITH [id number] 18:20:00 Test Item Value Reference Range Interpretation Comments APPEARANCE FLUID (BEAKER) (test Hazy Clear A code = 510) COLOR FLUID (BEAKER) (test code Yellow Colorless, Straw A = 511) RBC FLUID (BEAKER) (test code = 2990 /cu mm <=1 H 513) ADJUSTED WBC FLUID (BEAKER) 130 /cu mm <=5 H (test code = 1691) LINING CELLS (BEAKER) (test code 0 /cu mm <=1 = 1590) NEUTROPHILS FLUID (BEAKER) (test 12 % code = 1656) LYMPHS FLUID (BEAKER) (test code 79 % = 488) MONO/MACROPHAGE FLUID (BEAKER) 9 % (test code = 489) EOSINOPHILS FLUID (BEAKER) (test 0 % code = 491) BASO FLUID (BEAKER) (test code = 0 % 492) CONTAINER BODY FLUID (BEAKER) EDTA Tube (test code = 2873) LACTATE DEHYDROGENASE (LDH), BODY [id number] 17:26:00 Test Item Value Reference Range Interpretation Comments LACTATE DEHYDROGENASE FLUID < U/L Light's criteria (BEAKER) (test code = 634) identifies effusions if one or more are pre Absence of reference range indicates that normals have not been defined.Assay performance has not been validated for this type of specimen.PROTEIN, BODY FLUID 2018-08-21 17:26:00 Test Item Value Reference Range Interpretation Comments PROTEIN FLUID (BEAKER) 2.4 g/dL Light's criteria identifies (test code = 579) effusions if one or more are pre Absence of reference range indicates that normals have not been defined.Assay performance has not been validated for this type of specimen.POCT-GLUCOSE METER 2018-08-21 17:08:00 Test Item Value Reference Range Interpretation Comments POC-GLUCOSE METER 148 mg/dL 70-[address] [facility] 6720 (BEAKER) (test code = [place] 1538) [address] RAD, CHEST, 1 VIEW, NON [id number] 16:17:00Reason for exam:->s/p right thoracentesisShould this be [...] seen in the spine. Signed: Ilia Rodriguez Verified Date/Time: 08/21/2018 16:17:23 Reading Location: [facility] Radiology Reading Room -GLUCOSE [id number] 12:51:00 Test Item Value Reference Range Interpretation Comments POC-GLUCOSE METER 133 mg/dL 70-110 H TESTED AT [place] [address] ([facility]) (test code = BRENDA Santiago [facility] 1538) [address] TACROLIMUS [id number] 10:14:00 Test Item Value Reference Range Interpretation Comments TACROLIMUS BLOOD ([facility]) (test 7.6 ng/mL 10.0-20.0 L code = 657) Please draw 30 min prior to AM dose. Thanks!POCT-GLUCOSE [id number] 09:34:00 Test Item Value Reference Range Interpretation Comments POC-GLUCOSE METER 108 mg/dL 70-110 TESTED AT [place] [address] ([facility]) (test code = BRENDA Santiago [facility] 1538) [address] POCT-GLUCOSE [id number] 08:41:00 Test Item Value Reference Range Interpretation Comments POC-GLUCOSE METER 45 mg/dL 70-110 L TESTED AT [place] [address] ([facility]) (test code = [facility] Jack [facility] [address] 1538) POCT-GLUCOSE [id number] 08:22:00 Test Item Value Reference Range Interpretation Comments POC-GLUCOSE METER 37 mg/dL 70-110 LL TESTED AT [place] [address] ([facility]) (test code = BRENDA Santiago [facility] [address] 1538) COMPREHENSIVE METABOLIC [id number] 06:29:00 Test Item Value Reference Range Interpretation Comments TOTAL PROTEIN 6.4 gm/dL 6.0-8.3 (BEAKER) (test code = 770) ALBUMIN (BEAKER) 2.9 g/dL 3.5-5.0 L (test code = 1145) ALKALINE PHOSPHATASE 82 U/L 40-150 (BEAKER) (test code = 346) BILIRUBIN TOTAL 0.6 mg/dL 0.2-1.2 (BEAKER) (test code = 377) SODIUM (BEAKER) (test 135 meq/L 136-145 L code = 381) POTASSIUM (BEAKER) 4.7 meq/L 3.5-5.1 (test code = 379) CHLORIDE (BEAKER) 107 meq/L 98-107 (test code = 382) CO2 (BEAKER) (test 22 meq/L 22-29 code = 355) BLOOD UREA NITROGEN 47 mg/dL 7-21 H (BEAKER) (test code = 354) CREATININE (BEAKER) 3.18 mg/dL 0.57-1.25 H (test code = 358) GLUCOSE RANDOM 65 mg/dL 70-105 L (BEAKER) (test code = 652) CALCIUM (BEAKER) 8.1 mg/dL 8.4-10.2 L (test code = 697) AST (SGOT) (BEAKER) 25 U/L 5-34 (test code = 353) ALT (SGPT) (BEAKER) 22 U/L 6-55 (test code = 347) EGFR (BEAKER) (test 15 mL/min/1.73 ESTIMA RYAN GFR IS code = 1092) sq m NOT ACCURATE CREATININE CLEARANCE IN PREDICTING GLOMERULAR FILTRATION RATE . ESTIMATED GFR I S NOT APPLICABLE FOR DIALYSIS PATIEN TS. [id number] 06:18:00 Test Item Value Reference Range Interpretation Comments MAGNESIUM (BEAKER) (test code = 2.5 mg/dL 1.6-2.6 627) CBC (HEMOGRAM ONLY)2018-08-21 05:53:00 Test Item Value Reference Range Interpretation Comments WHITE BLOOD CELL COUNT (BEAKER) 3.4 K/ L 3.5-10.5 L (test code = 775) RED BLOOD CELL COUNT (BEAKER) 2.81 M/ L 3.93-5.22 L (test code = 761) HEMOGLOBIN (BEAKER) (test code = 7.1 GM/DL 11.2-15.7 L 410) HEMATOCRIT (BEAKER) (test code = 23.2 % 34.1-44.9 L 411) MEAN CORPUSCULAR VOLUME (BEAKER) 82.6 fL 79.4-94.8 (test code = 753) MEAN CORPUSCULAR HEMOGLOBIN 25.3 pg 25.6-32.2 L (BEAKER) (test code = 751) MEAN CORPUSCULAR HEMOGLOBIN CONC 30.6 GM/DL 32.2-35.5 L (BEAKER) (test code = 752) RED CELL DISTRIBUTION WIDTH 14.2 % 11.7-14.4 (BEAKER) (test code = 412) PLATELET COUNT (BEAKER) (test 153 K/CU MM 150-450 code = 756) MEAN PLATELET VOLUME (BEAKER) 9.5 fL 9.4-12.3 (test code = 754) NUCLEATED RED BLOOD CELLS 0 /100 WBC 0-0 (BEAKER) (test code = 413) POCT-GLUCOSE [id number] 21:32:00 Test Item Value Reference Range Interpretation Comments POC-GLUCOSE METER 197 mg/dL 70-[address] [facility] 6720 (BEAKER) (test code = [place] 1538) [address] PH, BODY [id number] 19:33:00 Test Item Value Reference Range Interpretation Comments PH, BODY FLUID (BEAKER) (test code = 7.75 1530) ALBUMIN, BODY [id number] 19:29:00 Test Item Value Reference Range Interpretation Comments ALBUMIN FLUID (BEAKER) (test code = 1.5 gm/dL 501) Reference Range: No Normals Assay performance has not been validated for this type of specimen.BODY FLUID CELL COUNT WITH [id number] 19:26:00 Test Item Value Reference Range Interpretation Comments APPEARANCE FLUID (BEAKER) (test Hazy Clear A code = 510) COLOR FLUID (BEAKER) (test code Straw Colorless, Straw = 511) RBC FLUID (BEAKER) (test code = 3000 /cu mm <=1 H 513) ADJUSTED WBC FLUID (BEAKER) 767 /cu mm <=5 H (test code = 1691) LINING CELLS (BEAKER) (test code 0 /cu mm <=1 = 1590) NEUTROPHILS FLUID (BEAKER) (test 6 % code = 1656) LYMPHS FLUID (BEAKER) (test code 75 % = 488) MONO/MACROPHAGE FLUID (BEAKER) 19 % (test code = 489) EOSINOPHILS FLUID (BEAKER) (test 0 % code = 491) BASO FLUID (BEAKER) (test code = 0 % 492) CONTAINER BODY FLUID (BEAKER) EDTA Tube (test code = 2873) LACTATE DEHYDROGENASE (LDH), BODY [id number] 19:22:00 Test Item Value Reference Range Interpretation Comments LACTATE DEHYDROGENASE FLUID < U/L Light's criteria (BEAKER) (test code = 634) identifies effusions if one or more are pre Absence of reference range indicates that normals have not been defined.Assay performance has not been validated for this type of specimen.PROTEIN, BODY FLUID 2018-08-20 19:22:00 Test Item Value Reference Range Interpretation Comments PROTEIN FLUID (BEAKER) 3.0 g/dL Light's criteria identifies (test code = 579) effusions if one or more are pre Absence of reference range indicates that normals have not been defined.Assay performance has not been validated for this type of specimen.TRIGLYCERIDES, BODY [id number] 19:22:00 Test Item Value Reference Range Interpretation Comments TRIGLYCERIDES FLUID (BEAKER) (test 32 mg/dL code = 539) Reference Range: No Normals Assay performance has not been validated for this type of specimen.RAD, CHEST, 1 VIEW, NON [id number] 19:16:00Reason for exam:->left thoracentesisShould this be performed at the bedside?->Yes FINAL REPORT Chest, 1 view Clinical history: left thoracentesis Comparison: 08/18/2018 Discussion: Status post left thoracentesis without pneumothorax. Interval decrease in left pleural effusion. Again seen is a layering right pleural effusion. The cardiac silhouette is enlargedwith perihilar pulmonary edema. No acute osseous abnormality is seen. Signed: Bud Campoverde [facility] Verified Date/Time: 08/20/2018 19:16:27 Reading Location: [facility] [id number] Ortho Consult Reading Room U/S, [id number] 18:21:00Laterality?- >LeftReason for exam:->pleural effusionFINAL REPORT PROCEDURE: Ultrasound-guided thoracentesis INDICATION: 63-year-old woman with left pleural effusion. DESCRIPTION: After obtaining informed written consent, ultrasound scan showed pleural effusion on the left. The overlying skin was prepped and draped in the usual, sterile fashion and local 2% lidocaine anesthesia was administered. A 4 [place] catheter was advanced into the pleural cavity and 1200 cc of serous fluid was removed. The catheter was removed without immediate complication. Samples were sent for analysis. IMPRESSION:Uncomplicated ultrasound-guided left thoracentesis with 1200 cc fluid removed. Signed: Nida Sauceda MDR[facility]ort Verified Date/Time: 08/20/2018 18:21:53 Reading Location: [address] Ultrasound Reading Room POCT-GLUCOSE [id number] 11:46:00 Test Item Value Reference Range Interpretation Comments POC-GLUCOSE METER 173 mg/dL 70-110 H TESTED AT [place] [address] ([facility]) (test code = [facility] 1538) [address] [id number] 10:26:00 Test Item Value Reference Range Interpretation Comments PROTIME ([facility]) (test code = 14.1 seconds 11.9-14.2 759) INR ([facility]) (test code = 370) 1.2 <=5.9 PARTIAL THROMBOPLASTIN TIME 39.4 seconds 22.5-36.0 H ([facility]) (test code = 760) Effective 08/20/2018: PT Reference Range ChangeNew: 11.9-14.2 Previous: 11.7- 14.7RECOMMENDED COUMADIN/WARFARIN INR THERAPY RANGESSTANDARD DOSE: 2.0-3.0 Includes: PROPHYLAXIS for venous thrombosis, systemic embolization; TREATMENT for venous thrombosis and/or pulmonary embolus.HIGH RISK: Target INR is2.5-3.5 for patients wiht mechanical heart valves.TACROLIMUS [id number] 10:20:00 Test Item Value Reference Range Interpretation Comments TACROLIMUS BLOOD ([facility]) (test 7.2 ng/mL 10.0-20.0 L code = 657) Please draw 30 min prior to AM dose. Thanks!POCT-GLUCOSE [id number] 08:05:00 Test Item Value Reference Range Interpretation Comments POC-GLUCOSE METER 64 mg/dL 70-110 L TESTED AT [place] [address] ([facility]) (test code = [facility] [address] 1538) CBC W/PLT COUNT & AUTO [id number] 07:03:00 Test Item Value Reference Range Interpretation Comments WHITE BLOOD CELL COUNT ([facility]) 4.2 K/ L 3.5-10.5 (test code = 775) RED BLOOD CELL COUNT (BEAKER) 3.03 M/ L 3.93-5.22 L (test code = 761) HEMOGLOBIN (BEAKER) (test code = 7.7 GM/DL 11.2-15.7 L 410) HEMATOCRIT (BEAKER) (test code = 24.9 % 34.1-44.9 L 411) MEAN CORPUSCULAR VOLUME (BEAKER) 82.2 fL 79.4-94.8 (test code = 753) MEAN CORPUSCULAR HEMOGLOBIN 25.4 pg 25.6-32.2 L (BEAKER) (test code = 751) MEAN CORPUSCULAR HEMOGLOBIN CONC 30.9 GM/DL 32.2-35.5 L (BEAKER) (test code = 752) RED CELL DISTRIBUTION WIDTH 14.1 % 11.7-14.4 (BEAKER) (test code = 412) PLATELET COUNT (BEAKER) (test 177 K/CU MM 150-450 code = 756) MEAN PLATELET VOLUME (BEAKER) 9.8 fL 9.4-12.3 (test code = 754) NUCLEATED RED BLOOD CELLS 0 /100 WBC 0-0 (BEAKER) (test code = 413) NEUTROPHILS RELATIVE PERCENT 45 % (BEAKER) (test code = 429) LYMPHOCYTES RELATIVE PERCENT 38 % (BEAKER) (test code = 430) MONOCYTES RELATIVE PERCENT 14 % (BEAKER) (test code = 431) EOSINOPHILS RELATIVE PERCENT 3 % (BEAKER) (test code = 432) BASOPHILS RELATIVE PERCENT 1 % (BEAKER) (test code = 437) NEUTROPHILS ABSOLUTE COUNT 1.85 K/ L 1.56-6.13 (BEAKER) (test code = 670) LYMPHOCYTES ABSOLUTE COUNT 1.56 K/ L 1.18-3.74 (BEAKER) (test code = 414) MONOCYTES ABSOLUTE COUNT (BEAKER) 0.58 K/ L 0.24-0.36 H (test code = 415) EOSINOPHILS ABSOLUTE COUNT 0.11 K/ L 0.04-0.36 (BEAKER) (test code = 416) BASOPHILS ABSOLUTE COUNT (BEAKER) 0.02 K/ L 0.01-0.08 (test code = 417) IMMATURE GRANULOCYTES-RELATIVE 1 % 0-1 PERCENT (BEAKER) (test code = 2801) BASIC METABOLIC [id number] 06:57:00 Test Item Value Reference Range Interpretation Comments SODIUM (BEAKER) 138 meq/L 136-145 (test code = 381) POTASSIUM (BEAKER) 4.5 meq/L 3.5-5.1 (test code = 379) CHLORIDE (BEAKER) 108 meq/L 98-107 H (test code = 382) CO2 (BEAKER) (test 23 meq/L 22-29 code = 355) BLOOD UREA NITROGEN 48 mg/dL 7-21 H (BEAKER) (test code = 354) CREATININE (BEAKER) 2.81 mg/dL 0.57-1.25 H (test code = 358) GLUCOSE RANDOM 36 mg/dL 70-105 LL (BEAKER) (test code = 652) CALCIUM (BEAKER) 8.4 mg/dL 8.4-10.2 (test code = 697) EGFR (BEAKER) (test 17 mL/min/1.73 ESTIMA RYAN GFR IS code = 1092) sq m NOT ACCURATE CREATININE CLEARANCE IN PREDICTING GLOMERULAR FILTRATION RATE . ESTIMATED GFR I S NOT APPLICABLE FOR DIALYSIS PATIEN TS. [id number] 06:44:00 Test Item Value Reference Range Interpretation Comments MAGNESIUM (BEAKER) (test code = 2.5 mg/dL 1.6-2.6 627) POCT-GLUCOSE [id number] 22:17:00 Test Item Value Reference Range Interpretation Comments POC-GLUCOSE METER 131 mg/dL 70-110 H TESTED AT [place] [address] ([facility]) (test code = [facility] 1538) [address] POCT-GLUCOSE [id number] 16:56:00 Test Item Value Reference Range Interpretation Comments POC-GLUCOSE METER 124 mg/dL 70-110 H TESTED AT [place] [address] ([facility]) (test code = [facility] 1538) [address] POCT-GLUCOSE [id number] 13:01:00 Test Item Value Reference Range Interpretation Comments POC-GLUCOSE METER 101 mg/dL 70-110 TESTED AT [place] [address] ([facility]) (test code = [facility] 1538) [address] TACROLIMUS [id number] 08:59:00 Test Item Value Reference Range Interpretation Comments TACROLIMUS BLOOD (BEAKER) (test 5.4 ng/mL 10.0-20.0 L code = 657) Please draw 30 min prior to AM dose. Thanks!POCT-GLUCOSE [id number] 08:57:00 Test Item Value Reference Range Interpretation Comments POC-GLUCOSE METER 125 mg/dL 70-[address] [facility] 6720 (BEAKER) (test code = BRENDA Santiago [facility] 1538) [address] POCT-GLUCOSE [id number] 08:30:00 Test Item Value Reference Range Interpretation Comments POC-GLUCOSE METER 48 mg/dL 70-[address] [facility] 6720 ([facility]) (test code = BRENDA Santiago [facility] [address] 1538) COMPREHENSIVE METABOLIC [id number] 06:46:00 Test Item Value Reference Range Interpretation Comments TOTAL PROTEIN 6.8 gm/dL 6.0-8.3 (BEAKER) (test code = 770) ALBUMIN (BEAKER) 3.1 g/dL 3.5-5.0 L (test code = 1145) ALKALINE PHOSPHATASE 84 U/L 40-150 (BEAKER) (test code = 346) BILIRUBIN TOTAL 0.7 mg/dL 0.2-1.2 (BEAKER) (test code = 377) SODIUM (BEAKER) (test 136 meq/L 136-145 code = 381) POTASSIUM (BEAKER) 4.1 meq/L 3.5-5.1 (test code = 379) CHLORIDE (BEAKER) 107 meq/L 98-107 (test code = 382) CO2 (BEAKER) (test 23 meq/L 22-29 code = 355) BLOOD UREA NITROGEN 47 mg/dL 7-21 H (BEAKER) (test code = 354) CREATININE (BEAKER) 2.78 mg/dL 0.57-1.25 H (test code = 358) GLUCOSE RANDOM 41 mg/dL 70-105 L (BEAKER) (test code = 652) CALCIUM (BEAKER) 8.2 mg/dL 8.4-10.2 L (test code = 697) AST (SGOT) (BEAKER) 24 U/L 5-34 (test code = 353) ALT (SGPT) (BEAKER) 18 U/L 6-55 (test code = 347) EGFR (BEAKER) (test 17 mL/min/1.73 ESTIMA RYAN GFR IS code = 1092) sq m NOT ACCURATE CREATININE CLEARANCE IN PREDICTING GLOMERULAR FILTRATION RATE . ESTIMATED GFR I S NOT APPLICABLE FOR DIALYSIS PATIEN TS. CBC (HEMOGRAM ONLY)2018-08-19 06:29:00 Test Item Value Reference Range Interpretation Comments WHITE BLOOD CELL COUNT (BEAKER) 4.1 K/ L 3.5-10.5 (test code = 775) RED BLOOD CELL COUNT (BEAKER) 2.99 M/ L 3.93-5.22 L (test code = 761) HEMOGLOBIN (BEAKER) (test code = 7.5 GM/DL 11.2-15.7 L 410) HEMATOCRIT (BEAKER) (test code = 24.7 % 34.1-44.9 L 411) MEAN CORPUSCULAR VOLUME (BEAKER) 82.6 fL 79.4-94.8 (test code = 753) MEAN CORPUSCULAR HEMOGLOBIN 25.1 pg 25.6-32.2 L (BEAKER) (test code = 751) MEAN CORPUSCULAR HEMOGLOBIN CONC 30.4 GM/DL 32.2-35.5 L (BEAKER) (test code = 752) RED CELL DISTRIBUTION WIDTH 14.1 % 11.7-14.4 (BEAKER) (test code = 412) PLATELET COUNT (BEAKER) (test 167 K/CU MM 150-450 code = 756) MEAN PLATELET VOLUME (BEAKER) 9.6 fL 9.4-12.3 (test code = 754) NUCLEATED RED BLOOD CELLS 0 /100 WBC 0-0 (BEAKER) (test code = 413) U/S, ABDOMINAL, [id number] 03:23:00Abdomen limited area? Add comment if clarification [...] Hydronephrosis: None. Ascites: None. Regional Vasculature: The vi sible abdominal aorta, IVC and hepatic veins are patent. The aorta measures 2.3 cm proximally, 1.7 cm in the midportion, distally not well-seen secondary to poor acoustic windowing. Additional findings: Small to moderate right pleural effusion.. IMPRESSION: Postsurgical changes of an orthotopic liver transplant with slightly coarsened hepatic echotexture suggesting hepatocellular dysfunction. Smallto moderate volume right pleural effusion. Signed: Aminata Fuentes Verified Date/Time:08/19/2018 03:23:10 Reading Location: [address] Transitional Reading Room POCT-GLUCOSE [id number] 22:31:00 Test Item Value Reference Range Interpretation Comments POC-GLUCOSE METER 123 mg/dL 70-110 H TESTED AT [place] [address] ([facility]) (test code = [facility] 1538) [address] POCT-GLUCOSE [id number] 18:04:00 Test Item Value Reference Range Interpretation Comments POC-GLUCOSE METER 138 mg/dL 70-110 H TESTED AT [place] [address] ([facility]) (test code = [facility] Jack [facility] 1538) [address] RAD, CHEST, 2 [id number] 13:39:00Reason for exam:->bilateral effusions, dyspneaFINAL REPORT INDICATION: [...] pleural effusions and mildcentral edema. Signed: JR Mclean Robert [facility] Verified Date/Time: 08/18/2018 13:39:03 Iona morales Location: [address] Neuro Reading Room POCT-GLUCOSE [id number] 12:06:00 Test Item Value Reference Range Interpretation Comments POC-GLUCOSE METER 116 mg/dL 70-[address] [facility] 6720 ([facility]) (test code = BRENDA Santiago [place] 1538) [address] TACROLIMUS [id number] 09:28:00 Test Item Value Reference Range Interpretation Comments TACROLIMUS BLOOD (BEAKER) (test 5.1 ng/mL 10.0-20.0 L code = 657) Please draw 30 min prior to AM dose. Thanks!HEMOGLOBIN [id number] 08:28:00 Test Item Value Reference Range Interpretation Comments HEMOGLOBIN A1C (BEAKER) (test code = 5.5 % 4.3-6.1 368) POCT-GLUCOSE [id number] 08:07:00 Test Item Value Reference Range Interpretation Comments POC-GLUCOSE METER 111 mg/dL 70-[address] [facility] 6720 ([facility]) (test code = BRENDA Santiago [place] 1538) [address] COMPREHENSIVE METABOLIC [id number] 07:18:00 Test Item Value Reference Range Interpretation Comments TOTAL PROTEIN 6.7 gm/dL 6.0-8.3 (BEAKER) (test code = 770) ALBUMIN (BEAKER) 3.0 g/dL 3.5-5.0 L (test code = 1145) ALKALINE PHOSPHATASE 85 U/L 40-150 (BEAKER) (test code = 346) BILIRUBIN TOTAL 0.8 mg/dL 0.2-1.2 (BEAKER) (test code = 377) SODIUM (BEAKER) (test 136 meq/L 136-145 code = 381) POTASSIUM (BEAKER) 4.1 meq/L 3.5-5.1 (test code = 379) CHLORIDE (BEAKER) 106 meq/L 98-107 (test code = 382) CO2 (BEAKER) (test 22 meq/L 22-29 code = 355) BLOOD UREA NITROGEN 50 mg/dL 7-21 H (BEAKER) (test code = 354) CREATININE (BEAKER) 2.83 mg/dL 0.57-1.25 H (test code = 358) GLUCOSE RANDOM 85 mg/dL 70-105 (BEAKER) (test code = 652) CALCIUM (BEAKER) 8.2 mg/dL 8.4-10.2 L (test code = 697) AST (SGOT) (BEAKER) 26 U/L 5-34 (test code = 353) ALT (SGPT) (BEAKER) 20 U/L 6-55 (test code = 347) EGFR (BEAKER) (test 17 mL/min/1.73 ESTIMA RYAN GFR IS code = 1092) sq m NOT ACCURATE CREATININE CLEARANCE IN PREDICTING GLOMERULAR FILTRATION RATE . ESTIMATED GFR I S NOT APPLICABLE FOR DIALYSIS PATIEN TS. CBC (HEMOGRAM ONLY)2018-08-18 06:27:00 Test Item Value Reference Range Interpretation Comments WHITE BLOOD CELL COUNT (BEAKER) 3.9 K/ L 3.5-10.5 (test code = 775) RED BLOOD CELL COUNT (BEAKER) 2.86 M/ L 3.93-5.22 L (test code = 761) HEMOGLOBIN (BEAKER) (test code = 7.2 GM/DL 11.2-15.7 L 410) HEMATOCRIT (BEAKER) (test code = 23.7 % 34.1-44.9 L 411) MEAN CORPUSCULAR VOLUME (BEAKER) 82.9 fL 79.4-94.8 (test code = 753) MEAN CORPUSCULAR HEMOGLOBIN 25.2 pg 25.6-32.2 L (BEAKER) (test code = 751) MEAN CORPUSCULAR HEMOGLOBIN CONC 30.4 GM/DL 32.2-35.5 L (BEAKER) (test code = 752) RED CELL DISTRIBUTION WIDTH 14.1 % 11.7-14.4 (BEAKER) (test code = 412) PLATELET COUNT (BEAKER) (test 157 K/CU MM 150-450 code = 756) MEAN PLATELET VOLUME (BEAKER) 9.8 fL 9.4-12.3 (test code = 754) NUCLEATED RED BLOOD CELLS 0 /100 WBC 0-0 (BEAKER) (test code = 413) POCT-GLUCOSE [id number] 17:32:00 Test Item Value Reference Range Interpretation Comments POC-GLUCOSE METER 91 mg/dL 70-[address] [facility] 6720 (BEAKER) (test code = [place] [address] 1538) CT, CHEST, WITHOUT [id number] 16:51:00FINAL REPORT INDICATION: Shortness of breath. COMPARISON:None. TECHNIQUE: Chest CT exam WITHOUT intravenous contrast. The exam was performed according to our department dose-optimization protocol, which includes automated exposure control, adjustments of mA and kV according to patient size. Iterative reconstructions are also sometimes employed. FINDINGS:There are bilateral moder ate pleural effusions with partial collapse of the [...] unremarkable. IMPRESSION: Bilateral moderate pleural effusions. Signed: Conor Ramírez MDReport Verified Date/Time: 08/17/2018 16:51:05 Reading Location: [address] Body Reading Room -GLUCOSE [id number] 16:23:00 Test Item Value Reference Range Interpretation Comments POC-GLUCOSE METER 46 mg/dL 70-[address] [facility] 67 (BEAKER) (test code = BRENDA Santiago [facility] [address] 1538) B-TYPE NATRIURETIC FACTOR (BNP)2018-08-17 15:08:00 Test Item Value Reference Range Interpretation Comments B-TYPE NATRIURETIC PEPTIDE (BEAKER) 549 pg/mL 0-100 H (test code = 700) URINALYSIS WITH MICROSCOPIC IF [id number] 14:47:00 Test Item Value Reference Range Interpretation Comments COLOR (BEAKER) (test code = 470) Light Yellow CLARITY (BEAKER) (test code = Clear 469) SPECIFIC GRAVITY UA (BEAKER) 1.008 1.001-1.035 (test code = 468) PH UA (BEAKER) (test code = 467) 6.5 5.0-8.0 PROTEIN UA (BEAKER) (test code = 200 mg/dL Negative A 464) GLUCOSE UA (BEAKER) (test code = Negative Negative 365) KETONES UA (BEAKER) (test code = Negative Negative 371) BILIRUBIN UA (BEAKER) (test code Negative Negative = 462) BLOOD UA (BEAKER) (test code = Negative Negative 461) NITRITE UA (BEAKER) (test code = Negative Negative 465) LEUKOCYTE ESTERASE UA (BEAKER) Negative Negative (test code = 466) UROBILINOGEN UA (BEAKER) (test 0.2 mg/dL 0.2-1.0 code = 463) SOURCE(BEAKER) (test code = 2795) URINALYSIS [id number] 14:47:00 Test Item Value Reference Range Interpretation Comments RBC UA (BEAKER) (test code = 519) < /HPF WBC UA (BEAKER) (test code = 520) 1 /HPF SQUAMOUS EPITHELIAL (BEAKER) (test 1 /HPF code = 516) POCT-GLUCOSE [id number] 12:28:00 Test Item Value Reference Range Interpretation Comments POC-GLUCOSE METER 75 mg/dL 70-110 TESTED AT [place] [address] ([facility]) (test code = [facility] [address] 1538) TACROLIMUS [id number] 09:04:00 Test Item Value Reference Range Interpretation Comments TACROLIMUS BLOOD (BEAKER) (test 6.2 ng/mL 10.0-20.0 L code = 657) POCT-GLUCOSE [id number] 08:53:00 Test Item Value Reference Range Interpretation Comments POC-GLUCOSE METER 87 mg/dL 70-110 TESTED AT [place] [address] ([facility]) (test code = [facility] [address] 1538) POCT-GLUCOSE [id number] 08:40:00 Test Item Value Reference Range Interpretation Comments POC-GLUCOSE METER 57 mg/dL 70-110 L TESTED AT [place] [address] ([facility]) (test code = [facility] [address] 1538) B-TYPE NATRIURETIC FACTOR (BNP)2018-08-17 06:16:00 Test Item Value Reference Range Interpretation Comments B-TYPE NATRIURETIC PEPTIDE (BEAKER) 513 pg/mL 0-100 H (test code = 700) COMPREHENSIVE METABOLIC [id number] 06:16:00 Test Item Value Reference Range Interpretation Comments TOTAL PROTEIN 6.7 gm/dL 6.0-8.3 (BEAKER) (test code = 770) ALBUMIN (BEAKER) 3.0 g/dL 3.5-5.0 L (test code = 1145) ALKALINE PHOSPHATASE 84 U/L 40-150 (BEAKER) (test code = 346) BILIRUBIN TOTAL 0.6 mg/dL 0.2-1.2 (BEAKER) (test code = 377) SODIUM (BEAKER) (test 137 meq/L 136-145 code = 381) POTASSIUM (BEAKER) 4.1 meq/L 3.5-5.1 (test code = 379) CHLORIDE (BEAKER) 107 meq/L 98-107 (test code = 382) CO2 (BEAKER) (test 22 meq/L 22-29 code = 355) BLOOD UREA NITROGEN 54 mg/dL 7-21 H (BEAKER) (test code = 354) CREATININE (BEAKER) 2.97 mg/dL 0.57-1.25 H (test code = 358) GLUCOSE RANDOM 45 mg/dL 70-105 L (BEAKER) (test code = 652) CALCIUM (BEAKER) 8.4 mg/dL 8.4-10.2 (test code = 697) AST (SGOT) (BEAKER) 22 U/L 5-34 (test code = 353) ALT (SGPT) (BEAKER) 16 U/L 6-55 (test code = 347) EGFR (BEAKER) (test 16 mL/min/1.73 ESTIMA RYAN GFR IS code = 1092) sq m NOT ACCURATE CREATININE CLEARANCE IN PREDICTING GLOMERULAR FILTRATION RATE . ESTIMATED GFR I S NOT APPLICABLE FOR DIALYSIS PATIEN TS. CBC W/PLT COUNT & AUTO [id number] 05:51:00 Test Item Value Reference Range Interpretation Comments WHITE BLOOD CELL COUNT (BEAKER) 3.4 K/ L 3.5-10.5 L (test code = 775) RED BLOOD CELL COUNT (BEAKER) 2.93 M/ L 3.93-5.22 L (test code = 761) HEMOGLOBIN (BEAKER) (test code = 7.3 GM/DL 11.2-15.7 L 410) HEMATOCRIT (BEAKER) (test code = 23.8 % 34.1-44.9 L 411) MEAN CORPUSCULAR VOLUME (BEAKER) 81.2 fL 79.4-94.8 (test code = 753) MEAN CORPUSCULAR HEMOGLOBIN 24.9 pg 25.6-32.2 L (BEAKER) (test code = 751) MEAN CORPUSCULAR HEMOGLOBIN CONC 30.7 GM/DL 32.2-35.5 L (BEAKER) (test code = 752) RED CELL DISTRIBUTION WIDTH 14.1 % 11.7-14.4 (BEAKER) (test code = 412) PLATELET COUNT (BEAKER) (test 173 K/CU MM 150-450 code = 756) MEAN PLATELET VOLUME (BEAKER) 9.7 fL 9.4-12.3 (test code = 754) NUCLEATED RED BLOOD CELLS 0 /100 WBC 0-0 (BEAKER) (test code = 413) NEUTROPHILS RELATIVE PERCENT 51 % (BEAKER) (test code = 429) LYMPHOCYTES RELATIVE PERCENT 33 % (BEAKER) (test code = 430) MONOCYTES RELATIVE PERCENT 12 % (BEAKER) (test code = 431) EOSINOPHILS RELATIVE PERCENT 2 % (BEAKER) (test code = 432) BASOPHILS RELATIVE PERCENT 1 % (BEAKER) (test code = 437) NEUTROPHILS ABSOLUTE COUNT 1.75 K/ L 1.56-6.13 (BEAKER) (test code = 670) LYMPHOCYTES ABSOLUTE COUNT 1.13 K/ L 1.18-3.74 L (BEAKER) (test code = 414) MONOCYTES ABSOLUTE COUNT (BEAKER) 0.42 K/ L 0.24-0.36 H (test code = 415) EOSINOPHILS ABSOLUTE COUNT 0.07 K/ L 0.04-0.36 (BEAKER) (test code = 416) BASOPHILS ABSOLUTE COUNT (BEAKER) 0.02 K/ L 0.01-0.08 (test code = 417) IMMATURE GRANULOCYTES-RELATIVE 2 % 0-1 H PERCENT (BEAKER) (test code = 2801) POCT-GLUCOSE [id number] 02:09:00 Test Item Value Reference Range Interpretation Comments POC-GLUCOSE METER 85 mg/dL 70-[address] [facility] 67[address] ([facility]) (test code = [place] [address] 1538) HEPATITIS C PCR, [id number] 13:59:00 Test Item Value Reference Range Interpretation Comments HCV RESULT COMPONENT HCV RNA not detected HCV RNA not detected (BEAKER) (test code = 2699) This test uses a Real-Time Polymerase Chain Reaction (RT-PCR) methodology and was performed using LAZ Ampliprep/LAZ TaqMan HCV test kit version 2.0 ([employer]).Reportable range for this assay is 15 - 100,000,000 IU per mL (1.18 - 8.00 Log IU/mL).TACROLIMUS [id number] 13:46:00 Test Item Value Reference Range Interpretation Comments TACROLIMUS BLOOD (BEAKER) (test 9.6 ng/mL 10.0-20.0 L code = 657) ALPHA FETOPROTEIN (AFP), TUMOR [id number] 13:23:00 Test Item Value Reference Range Interpretation Comments ALPHA-FETOPROTEIN (BEAKER) (test code < ng/mL <10.0 = 1094) Effective 02/09/2014: Reference Range ChangeNew: <10.0 Previous: 0.0-8.0 [id number] 13:04:00 Test Item Value Reference Range Interpretation Comments PHOSPHORUS (BEAKER) (test code = 4.5 mg/dL 2.3-4.7 604) [id number] 13:04:00 Test Item Value Reference Range Interpretation Comments MAGNESIUM (BEAKER) (test code = 2.3 mg/dL 1.6-2.6 627) COMPREHENSIVE METABOLIC [id number] 13:04:00 Test Item Value Reference Range Interpretation Comments TOTAL PROTEIN 6.7 gm/dL 6.0-8.3 (BEAKER) (test code = 770) ALBUMIN (BEAKER) 3.5 g/dL 3.5-5.0 (test code = 1145) ALKALINE PHOSPHATASE 120 U/L 40-150 (BEAKER) (test code = 346) BILIRUBIN TOTAL 0.7 mg/dL 0.2-1.2 (BEAKER) (test code = 377) SODIUM (BEAKER) (test 140 meq/L 136-145 code = 381) POTASSIUM (BEAKER) 5.1 meq/L 3.5-5.1 (test code = 379) CHLORIDE (BEAKER) 108 meq/L 98-107 H (test code = 382) CO2 (BEAKER) (test 22 meq/L 22-29 code = 355) BLOOD UREA NITROGEN 37 mg/dL 7-21 H (BEAKER) (test code = 354) CREATININE (BEAKER) 1.16 mg/dL 0.57-1.25 (test code = 358) GLUCOSE RANDOM 214 mg/dL 70-105 H (BEAKER) (test code = 652) CALCIUM (BEAKER) 9.1 mg/dL 8.4-10.2 (test code = 697) AST (SGOT) (BEAKER) 16 U/L 5-34 (test code = 353) ALT (SGPT) (BEAKER) 17 U/L 6-55 (test code = 347) EGFR (BEAKER) (test 47 mL/min/1.73 ESTIMA RYAN GFR IS code = 1092) sq m NOT ACCURATE CREATININE CLEARANCE IN PREDICTING GLOMERULAR FILTRATION RATE . ESTIMATED GFR I S NOT APPLICABLE FOR DIALYSIS PATIEN TS. LIPID [id number] 13:04:00 Test Item Value Reference Range Interpretation Comments TRIGLYCERIDES (BEAKER) (test code = 170 mg/dL 540) CHOLESTEROL (BEAKER) (test code = 175 mg/dL 631) HDL CHOLESTEROL (BEAKER) (test code 52 mg/dL = 976) LDL CHOLESTEROL CALCULATED (BEAKER) 89 mg/dL (test code = 633) Triglyceride Reference Range: Low Risk <150 Borderline 150-199 High Risk 200-499 Very High Risk >=500Cholesterol Reference Range: Low Risk <200 Borderline 200-239 High Risk >240HDL Cholesterol Reference Range: Low Risk >=60 High Risk <40LDL Cholesterol Reference Range: Optimal <100 Near Optimal 100-129 Borderline 130-159 High 160-189 Very High >=190BILIRUBIN, [id number] 13:04:00 Test Item Value Reference Range Interpretation Comments BILIRUBIN DIRECT (BEAKER) (test 0.2 mg/dL 0.1-0.5 code = 706) CBC W/PLT COUNT & AUTO [id number] 12:37:00 Test Item Value Reference Range Interpretation Comments WHITE BLOOD CELL COUNT (BEAKER) 5.8 K/ L 4.0-10.0 (test code = 775) RED BLOOD CELL COUNT (BEAKER) 4.55 M/ L 4.00-5.00 (test code = 761) HEMOGLOBIN (BEAKER) (test code = 12.6 GM/DL 12.0-15.0 410) HEMATOCRIT (BEAKER) (test code = 37.1 % 36.0-45.0 411) MEAN CORPUSCULAR VOLUME (BEAKER) 81.5 fL 82.0-99.0 L (test code = 753) MEAN CORPUSCULAR HEMOGLOBIN 27.7 pg 27.0-33.0 (BEAKER) (test code = 751) MEAN CORPUSCULAR HEMOGLOBIN CONC 34.0 GM/DL 32.0-36.0 (BEAKER) (test code = 752) RED CELL DISTRIBUTION WIDTH 13.1 % 10.3-14.2 (BEAKER) (test code = 412) PLATELET COUNT (BEAKER) (test 158 K/CU MM 150-430 code = 756) MEAN PLATELET VOLUME (BEAKER) 7.3 fL 6.5-10.5 (test code = 754) NUCLEATED RED BLOOD CELLS 0 /100 WBC 0-0 (BEAKER) (test code = 413) NEUTROPHILS RELATIVE PERCENT 51 % (BEAKER) (test code = 429) LYMPHOCYTES RELATIVE PERCENT 27 % (BEAKER) (test code = 430) MONOCYTES RELATIVE PERCENT 21 % (BEAKER) (test code = 431) EOSINOPHILS RELATIVE PERCENT 2 % (BEAKER) (test code = 432) BASOPHILS RELATIVE PERCENT 0 % (BEAKER) (test code = 437) NEUTROPHILS ABSOLUTE COUNT 2.94 K/ L 1.80-8.00 (BEAKER) (test code = 670) LYMPHOCYTES ABSOLUTE COUNT 1.54 K/ L 1.48-4.50 (BEAKER) (test code = 414) MONOCYTES ABSOLUTE COUNT (BEAKER) 1.19 K/ L 0.00-1.30 (test code = 415) EOSINOPHILS ABSOLUTE COUNT 0.10 K/ L 0.00-0.50 (BEAKER) (test code = 416) BASOPHILS ABSOLUTE COUNT (BEAKER) 0.02 K/ L 0.00-0.20 (test code = 417) 0.00POCT-GLUCOSE [id number] 13:29:00 Test Item Value Reference Range Interpretation Comments POC-GLUCOSE METER 77 mg/dL 70-110 TESTED AT [place] [address] ([facility]) (test code = [facility] [address] 1538) POCT-GLUCOSE [id number] 13:28:00 Test Item Value Reference Range Interpretation Comments POC-GLUCOSE METER 100 mg/dL 70-110 TESTED AT [place] [id number] ([facility]) (test code = [facility] 1538) [address] POCT-GLUCOSE [id number] 12:04:00 Test Item Value Reference Range Interpretation Comments POC-GLUCOSE METER 69 mg/dL 70-[address] [facility] [address] ([facility]) (test code = [place] [facility] [address] 1538) CREATINE KINASE (CK), TOTAL AND [id number] 09:47:00 Test Item Value Reference Range Interpretation Comments CREATINE KINASE TOTAL ([facility]) 38 U/L 29-200 (test code = 380) CREATINE KINASE-MB ([facility]) (test 1.1 ng/mL 0.0-6.6 code = 750) CREATINE KINASE-MB INDEX ([facility]) 2.9 % (test code = 395) Effective 02/09/2014: CK-MB Reference Range ChangeNew: 0.0-6.6 Previous: 0.0-4.9CK-MB Reference Range:<6.7 Normal6.7-10.0 Borderline>10.0 AbnormalTACROLIMUS [id number] 09:04:00 Test Item Value Reference Range Interpretation Comments TACROLIMUS BLOOD ([facility]) (test 9.5 ng/mL 10.0-20.0 L code = 657) TROPONIN [id number] 08:43:00 Test Item Value Reference Range Interpretation Comments TROPONIN I ([facility]) (test code = 0.01 ng/mL 0.00-0.03 397) Effective 02/09/2014: Reference Range ChangeNew: 0.00-0.03 Previous [...] acute neurological disease, and persistent tachyarrhythmia.HEPATIC FUNCTION [id number] 05:43:00 Test Item Value Reference Range Interpretation Comments TOTAL PROTEIN (BEAKER) (test code = 6.0 gm/dL 6.0-8.3 770) ALBUMIN ([facility]) (test code = 1145) 3.3 g/dL 3.5-5.0 L BILIRUBIN TOTAL (BEAKER) (test code 1.0 mg/dL 0.2-1.2 = 377) BILIRUBIN DIRECT (BEAKER) (test 0.3 mg/dL 0.1-0.5 code = 706) ALKALINE PHOSPHATASE (BEAKER) (test 87 U/L 40-150 code = 346) AST (SGOT) (BEAKER) (test code = 13 U/L 5-34 353) ALT (SGPT) (BEAKER) (test code = 10 U/L 6-55 347) BASIC METABOLIC [id number] 05:43:00 Test Item Value Reference Range Interpretation Comments SODIUM (BEAKER) 141 meq/L 136-145 (test code = 381) POTASSIUM (BEAKER) 4.6 meq/L 3.5-5.1 (test code = 379) CHLORIDE (BEAKER) 113 meq/L 98-107 H (test code = 382) CO2 (BEAKER) (test 23 meq/L 22-29 code = 355) BLOOD UREA NITROGEN 19 mg/dL 7-21 (BEAKER) (test code = 354) CREATININE (BEAKER) 0.87 mg/dL 0.57-1.25 (test code = 358) GLUCOSE RANDOM 76 mg/dL 70-105 (BEAKER) (test code = 652) CALCIUM (BEAKER) 8.8 mg/dL 8.4-10.2 (test code = 697) EGFR (BEAKER) (test 66 mL/min/1.73 ESTIMA RYAN GFR IS code = 1092) sq m NOT ACCURATE CREATININE CLEARANCE IN PREDICTING GLOMERULAR FILTRATION RATE . ESTIMATED GFR I S NOT APPLICABLE FOR DIALYSIS PATIEN TS. CBC W/PLT COUNT & AUTO [id number] 05:33:00 Test Item Value Reference Range Interpretation Comments WHITE BLOOD CELL COUNT (BEAKER) 4.3 K/ L 4.0-10.0 (test code = 775) RED BLOOD CELL COUNT (BEAKER) 4.27 M/ L 4.00-5.00 (test code = 761) HEMOGLOBIN (BEAKER) (test code = 11.8 GM/DL 12.0-15.0 L 410) HEMATOCRIT (BEAKER) (test code = 33.3 % 36.0-45.0 L 411) MEAN CORPUSCULAR VOLUME (BEAKER) 77.8 fL 82.0-99.0 L (test code = 753) MEAN CORPUSCULAR HEMOGLOBIN 27.6 pg 27.0-33.0 (BEAKER) (test code = 751) MEAN CORPUSCULAR HEMOGLOBIN CONC 35.5 GM/DL 32.0-36.0 (BEAKER) (test code = 752) RED CELL DISTRIBUTION WIDTH 14.4 % 10.3-14.2 H (BEAKER) (test code = 412) PLATELET COUNT (BEAKER) (test 136 K/CU MM 150-430 L code = 756) MEAN PLATELET VOLUME (BEAKER) 7.0 fL 6.5-10.5 (test code = 754) NUCLEATED RED BLOOD CELLS 0 /100 WBC 0-0 (BEAKER) (test code = 413) NEUTROPHILS RELATIVE PERCENT 47 % (BEAKER) (test code = 429) LYMPHOCYTES RELATIVE PERCENT 34 % (BEAKER) (test code = 430) MONOCYTES RELATIVE PERCENT 16 % (BEAKER) (test code = 431) EOSINOPHILS RELATIVE PERCENT 2 % (BEAKER) (test code = 432) BASOPHILS RELATIVE PERCENT 1 % (BEAKER) (test code = 437) NEUTROPHILS ABSOLUTE COUNT 2.00 K/ L 1.80-8.00 (BEAKER) (test code = 670) LYMPHOCYTES ABSOLUTE COUNT 1.47 K/ L 1.48-4.50 L (BEAKER) (test code = 414) MONOCYTES ABSOLUTE COUNT (BEAKER) 0.70 K/ L 0.00-1.30 (test code = 415) EOSINOPHILS ABSOLUTE COUNT 0.09 K/ L 0.00-0.50 (BEAKER) (test code = 416) BASOPHILS ABSOLUTE COUNT (BEAKER) 0.04 K/ L 0.00-0.20 (test code = 417) 0.00TROPONIN [id number] 22:47:00 Test Item Value Reference Range Interpretation Comments TROPONIN I (BEAKER) (test code = 397) < ng/mL 0.00-0.03 Effective 02/09/2014: Reference Range [...] acidosis, acute neurological disease, and persistent tachyarrhythmia.POCT-GLUCOSE [id number] 21:47:00 Test Item Value Reference Range Interpretation Comments POC-GLUCOSE METER 183 mg/dL 70-110 H TESTED AT [place] [address] ([facility]) (test code = [facility] 1538) [address] CREATINE KINASE (CK), TOTAL AND [id number] 16:27:00 Test Item Value Reference Range Interpretation Comments CREATINE KINASE TOTAL ([facility]) 36 U/L 29-200 (test code = 380) CREATINE KINASE-MB ([facility]) (test 1.4 ng/mL 0.0-6.6 code = 750) CREATINE KINASE-MB INDEX ([facility]) 3.9 % (test code = 395) Effective 02/09/2014: CK-MB Reference Range ChangeNew: 0.0-6.6 Previous: 0.0-4.9CK-MB Reference Range:<6.7 Normal6.7-10.0 Borderline>10.0 AbnormalTROPONIN [id number] 16:27:00 Test Item Value Reference Range Interpretation Comments TROPONIN I ([facility]) (test code = 397) < ng/mL 0.00-0.03 Effective 02/09/2014: Reference Range [...] acidosis, acute neurological disease, and persistent tachyarrhythmia.POCT-GLUCOSE [id number] 16:09:00 Test Item Value Reference Range Interpretation Comments POC-GLUCOSE METER 95 mg/dL 70-110 TESTED AT [place] [address] ([facility]) (test code = [facility] [id number] 2588)
[2020-06-07 11:14] LABS: Absolute Lymphocytes (CBC) 0.8 K/uL (0.7-4.9); Hematocrit 27.5 % (36.0-45.0); Lymphocytes % 16.8 % (15.3-44.8); MPV 7.3 fL (7.6-11.3); RBC Red Blood Cell Count 3.36 M/uL (3.86-4.86)
[2020-06-07 11:15] LABS: Protime INR 1.21
[2020-06-07 11:31] LABS: ALT/SGPT 12 U/L (12-78); AST/SGOT 9 U/L (15-37); Albumin 2.7 g/dL (3.4-5.0); Alkaline Phosphatase 122 U/L (45-117); BUN Blood Urea Nitrogen 30 mg/dL (7-18); Bicarbonate 31 mmol/L (21-32); Bilirubin Direct 0.3 mg/dL (0-0.2); Bilirubin Total 1.2 mg/dL (0.2-1.0); Glucose Level 220 mg/dL (74-106); Magnesium 2.3 mg/dL (1.8-2.4); NT PRO-BNP 24229 pg/mL (<125); Potassium 4.2 mmol/L (3.5-5.1); Sodium Level 137 mmol/L (136-145); Troponin (Emerg Dept Use Only) < 0.02 ng/mL (0.0-0.045)
--- NOTE | 2020-06-07 12:12 | RAD REPORT ---
EXAM DESCRIPTION: Cate Single View06/07/2020 10:57 am CLINICAL HISTORY: Shortness of breath COMPARISON: May 31, 2020 FINDINGS: 10 centimeter left mid to lower lung opacity unchanged Right lung appears clear of acute infiltrate. Heart is probably normal in size IMPRESSION: 10 centimeter left lung opacity unchanged could represent mass or pneumonia
--- NOTE | 2020-06-07 17:34 | RAD REPORT ---
EXAM DESCRIPTION: CT - Chest For Pe Angio - 06/07/2020 4:30 pm CLINICAL HISTORY: Chest pain. COUGH COMPARISON: Thorax Wo Con dated 08/15/2018 TECHNIQUE: CT angiogram of the pulmonary arteries was performed with MIP. All CT scans are performed using dose optimization technique as appropriate and may include automated exposure control or mA/KV adjustment according to patient size. FINDINGS: No evidence of pulmonary thromboembolism. No acute aortic finding demonstrated. Airspace moderate-sized opacity is present in the left lung base which may represent infection or ate lectasis. Mild interstitial pulmonary edema is present. Small bilateral pleural effusions. No concerning bony finding. IMPRESSION: No evidence of pulmonary thromboembolism. Mild volume overload versus CHF pattern. Moderate-size left lung base infiltrate/consolidation suggests pneumonia or atelectasis.
--- NOTE | 2020-06-07 18:08 | ER ---
[facility]'s Notes [facility] Name: Lisa Ko Age: 65 yrs Sex: Female : 1955 Arrival Date: 06/07/2020 Time: 10:13 Bed 4 Private MD: Will Tejeda E Diagnosis: SOB, Congestive Heart Failure;Chronic pain syndrome Presentation: 06/07 10:19 Chief complaint: Patient states: intermittent SOB for a while. Pt is on HD and had a sv CXR a few days ago. Coronavirus screen: Client denies travel out of the [place] in the last 14 days. Client presents with at least one sign or symptom that may indicate coronavirus-19. Standard/surgical mask placed on the client. Provider contacted for isolation considerations. Ebola Screen: No symptoms or risks identified at this time. Risk Assessment: Do you want to hurt yourself or someone else? Patient reports no desire to harm self or others. Onset of symptoms was May 2020. 10:19 Method Of Arrival: Wheelchair sv 10:19 Acuity: VANDA 3 sv 10:21 Initial Sepsis Screen: Does the patient meet any 2 criteria? No. Patient's initial sv sepsis screen is negative. Does the patient have a suspected source of infection? No. Patient's initial sepsis screen is negative. Historical: - Allergies: 10:21 Codeine; sv 10:21 Levaquin (rash); sv - PMHx: 10:21 Diabetes - IDDM; liver cancer; Hypertension; liver transplant; neuropathy; TIA; HD; sv - Immunization history:: Client reports receiving the 2nd dose of the Covid vaccine, Client reports receiving the 1st dose of the Covid vaccine. - Social history:: Smoking status: Patient denies any tobacco usage or history of. Screenin:25 Abuse screen: Denies threats or abuse. Nutritional screening: No deficits noted. tw2 Tuberculosis screening: No symptoms or risk factors identified. Fall Risk Secondary diagnosis (15 points) impaired mobility. Assessment: 11:14 Reassessment: provider at bedside at this time. tw2 12:00 Reassessment: Patient appears in no apparent distress at this time. No changes from tw2 previously documented assessment. Patient and/or family updated on plan of care and expected duration. Pain level reassessed. Patient is alert, oriented x 3, equal unlabored respirations, skin warm/dry/pink. 13:00 Reassessment: Patient appears in no apparent distress at this time. No changes from tw2 previously documented assessment. Patient and/or family updated on plan of care and expected duration. Pain level reassessed. Patient is alert, oriented x 3, equal unlabored respirations, skin warm/dry/pink. 14:05 Reassessment: Patient appears in no apparent distress at this time. No changes from tw2 previously documented assessment. Patient and/or family updated on plan of care and expected duration. Pain level reassessed. Patient is alert, oriented x 3, equal unlabored respirations, skin warm/dry/pink. 14:36 Reassessment: Dr. Mai at bedside discussing results and POC. jl7 14:45 Reassessment: Assisted pt to restroom via wheelchair. jl7 14:50 Reassessment: provider at bedside discussing POC with pt at this time and after tw2 speaking with pts spouse via phone. 15:16 Reassessment: Patient appears in no apparent distress at this time. No changes from tw2 previously documented assessment. 16:16 Reassessment: Patient appears in no apparent distress at this time. Patient and/or tw2 family updated on plan of care and expected duration. Pain level reassessed. Patient is alert, oriented x 3, equal unlabored respirations, skin warm/dry/pink. pt updated as to POC and need for CT shortly. 17:00 Reassessment: Patient appears in no apparent distress at this time. No changes from tw2 previously documented assessment. Patient and/or family updated on plan of care and expected duration. Pain level reassessed. Patient is alert, oriented x 3, equal unlabored respirations, skin warm/dry/pink. 17:50 Reassessment: Patient appears in no apparent distress at this time. No changes from tw2 previously documented assessment. Patient and/or family updated on plan of care and expected duration. Pain level reassessed. Patient is alert, oriented x 3, equal unlabored respirations, skin warm/dry/pink. provider at bedside at this time. 19:20 Reassessment: Patient appears in no apparent distress at this time. No changes from tw2 previously documented assessment. Patient and/or family updated on plan of care and expected duration. Pain level reassessed. Patient is alert, oriented x 3, equal unlabored respirations, skin warm/dry/pink. Vital Signs: 10:21 BP 136 / 65; Pulse 82; Resp 18; Temp 97.6(TE); Pulse Ox 97% ; Weight 86.18 kg; Height 5 sv ft. 6 in. (167.64 cm); Pain 0/10; 10:55 BP 154 / 76; Pulse 85; Resp 26; Temp 97.9(O); Pulse Ox 96% on R/A; tw2 11:55 BP 149 / 70; Pulse 82; Resp 17; Pulse Ox 95% on R/A; tw2 13:00 BP 168 / 81; Pulse 83; Resp 25; Pulse Ox 93% on R/A; tw2 14:05 BP 164 / 76; Pulse 82; Resp 22; Pulse Ox 97% on R/A; tw2 15:16 BP 173 / 74; Pulse 77; Resp 26; Pulse Ox 96% on R/A; tw2 16:22 BP 164 / 77; Pulse 82; Resp 17; Pulse Ox 96% on R/A; tw2 17:00 BP 167 / 75; Pulse 84; Resp 20; Pulse Ox 98% on R/A; tw2 18:06 BP 168 / 81; Pulse 82; Resp 17; Pulse Ox 98% on R/A; tw2 10:21 Body Mass Index 30.67 (86.18 kg, 167.64 cm) sv ED Course: 10:13 Patient arrived in ED. am2 10:13 Will Tejeda MD is Private Physician. am2 10:20 Triage completed. sv 10:21 Arm band placed on. sv 10:22 Bed in low position. Call light in reach. digital media associate on. Pulse ox on. NIBP on. tw2 10:24 Lucy Padilla, JACQUELYN is Primary Nurse. tw2 10:28 Luis Mai MD is Attending Physician. kdr 10:55 Inserted saline lock: 20 gauge in right forearm, using aseptic technique. Blood tw2 collected. 10:57 XRAY Chest (1 view) In Process Unspecified. EDMS 13:05 CBC with Diff Sent. sv 13:05 LFT's Sent. sv 13:07 Basic Metabolic Panel Sent. sv 14:54 Awaiting: MRI at this time. tw2 16:30 CT Chest For PE Angio In Process Unspecified. EDMS 16:53 Chest Wo Cont Sent. sv 18:03 Shaen Nevarez DO is Hospitalizing Provider. kdr 18:49 Will Tejeda MD is Referral Physician. kdr 19:20 No provider procedures requiring assistance completed. IV discontinued, intact, tw2 bleeding controlled, No redness/swelling at site. Pressure dressing applied. Administered Medications: No medications were administered Outcome: 18:08 Decision to Hospitalize by Provider. kdr 18:53 Discharge ordered by MD. kdr 19:20 Discharged to home via wheelchair. tw2 19:20 Condition: stable 19:20 Discharge instructions given to patient, Instructed on discharge instructions, follow up and referral plans. Demonstrated understanding of instructions, follow-up care. 19:20 Patient left the ED. tw2 Addendum: 06/10/2020 19:52 Addendum: Radiology Result: unchanged from study done on 05/31/20. pt told to follow up d m5 with PCP. Signatures: Dispatcher [employer] Berenice Guaman RN RN dm5 Courtney Hernandez RN RN Luis Mai MD MD kdr Lucy Padilla RN RN tw2 Dorie Simpson RN RN jl7 Madina Snyder am2 Corrections: (The following items were deleted from the chart) 03 13:16 10:55 BP 154 / 76; Pulse 85bpm; Resp 26bpm; Pulse Ox 96% RA; Temp 17F; tw2 tw2 16:22 16:16 Pulse 82bpm; Resp 17bpm; Pulse Ox 96% RA; tw2 tw2
--- NOTE | 2020-06-07 18:08 | EDPHYS ---
Physician Documentation [facility] Name: Lisa Ko Age: 65 yrs Sex: Female : 1955 Arrival Date: 06/07/2020 Time: 10:13 Bed 4 Private MD: Will Tejeda E ED Physician Luis Mai HPI: 06/07 18:14 This 65 yrs old Female presents to ER via Wheelchair with complaints of kdr Shortness Of Breath. 18:14 The patient has shortness of breath with light activity. Onset: The symptoms/episode kdr began/occurred gradually, 1 month(s) ago. Duration: The symptoms are intermittent, Exertional SOB. The patient's shortness of breath is aggravated by exertion, light activity, talking, walking. Associated signs and symptoms: Pertinent positives: Weakness. Severity of symptoms: At their worst the symptoms were in the emergency department the symptoms are unchanged. The patient has experienced similar episodes in the past, a few times. The patient has been recently seen by a physician: Dr. TORRES. The patient has become increasingly SOB, especially with exertion over the last month. . Historical: - Allergies: 10:21 Codeine; sv 10:21 Levaquin (rash); sv - PMHx: 10:21 Diabetes - IDDM; liver cancer; Hypertension; liver transplant; neuropathy; TIA; HD; sv - Immunization history:: Client reports receiving the 2nd dose of the Covid vaccine, Client reports receiving the 1st dose of the Covid vaccine. - Social history:: Smoking status: Patient denies any tobacco usage or history of. ROS: 18:14 Constitutional: Negative for fever, chills, and weight loss, Eyes: Negative for injury, kdr pain, redness, and discharge, ENT: Negative for injury, pain, and discharge, Neck: Negative for injury, pain, and swelling, Cardiovascular: Negative for chest pain, palpitations, and edema, Abdomen/GI: Negative for abdominal pain, nausea, vomiting, diarrhea, and constipation, Back: Negative for injury and pain, : Negative for injury, bleeding, discharge, and swelling, MS/Extremity: Negative for injury and deformity. 18:14 Cardiovascular: Positive for edema, Negative for chest pain, palpitations. 18:14 Respiratory: Positive for dyspnea on exertion, shortness of breath, on exertion. Negative for hemoptysis, pleurisy. Exam: 18:14 Constitutional: This is a well developed, well nourished patient who is awake, alert, kdr and in no acute distress. Head/Face: Normocephalic, atraumatic. Eyes: Pupils equal round and reactive to light, extra-ocular motions intact. Lids and lashes normal. Conjunctiva and sclera are non-icteric and not injected. Cornea within normal limits. Periorbital areas with no swelling, redness, or edema. Neck: Trachea midline, no thyromegaly or masses palpated, and no cervical lymphadenopathy. Supple, full range of motion without nuchal rigidity, or vertebral point tenderness. No Meningismus. Chest/axilla: Normal chest wall appearance and motion. Nontender with no deformity. No lesions are appreciated. Cardiovascular: Regular rate and rhythm with a normal S1 and S2. No gallops, murmurs, or rubs. Normal PMI, no JVD. No pulse deficits. Abdomen/GI: Soft, non-tender, with normal bowel sounds. No distension or tympany. No guarding or rebound. No evidence of tenderness throughout. Back: No spinal tenderness. No costovertebral tenderness. Full range of motion. Skin: Warm, dry with normal turgor. Normal color with no rashes, no lesions, and no evidence of cellulitis. MS/ Extremity: Pulses equal, no cyanosis. Neurovascular intact. Full, normal range of motion. Neuro: Awake and alert, GCS 15, oriented to person, place, time, and situation. Cranial nerves II-XII grossly intact. Motor strength 5/5 in all extremities. Sensory grossly intact. Cerebellar exam normal. Normal gait. Psych: Awake, alert, with orientation to person, place and time. Behavior, mood, and affect are within normal limits. 18:14 Respiratory: the patient does not display signs of respiratory distress, Respirations: normal. Vital Signs: 10:21 BP 136 / 65; Pulse 82; Resp 18; Temp 97.6(TE); Pulse Ox 97% ; Weight 86.18 kg; Height 5 sv ft. 6 in. (167.64 cm); Pain 0/10; 10:55 BP 154 / 76; Pulse 85; Resp 26; Temp 97.9(O); Pulse Ox 96% on R/A; tw2 11:55 BP 149 / 70; Pulse 82; Resp 17; Pulse Ox 95% on R/A; tw2 13:00 BP 168 / 81; Pulse 83; Resp 25; Pulse Ox 93% on R/A; tw2 14:05 BP 164 / 76; Pulse 82; Resp 22; Pulse Ox 97% on R/A; tw2 15:16 BP 173 / 74; Pulse 77; Resp 26; Pulse Ox 96% on R/A; tw2 16:22 BP 164 / 77; Pulse 82; Resp 17; Pulse Ox 96% on R/A; tw2 17:00 BP 167 / 75; Pulse 84; Resp 20; Pulse Ox 98% on R/A; tw2 18:06 BP 168 / 81; Pulse 82; Resp 17; Pulse Ox 98% on R/A; tw2 10:21 Body Mass Index 30.67 (86.18 kg, 167.64 cm) sv MDM: 18:08 Patient medically screened. kdr 18:32 Data reviewed: vital signs, nurses notes, lab test result(s), radiologic studies. kdr 06/07 10:29 Order name: Basic Metabolic Panel kdr 06/07 10:29 Order name: CBC with Diff kdr 06/07 10:29 Order name: LFT's kdr 06/07 10:29 Order name: Magnesium; Complete Time: 13:16 kdr 06/07 10:29 Order name: NT PRO-BNP; Complete Time: 13:16 kdr 06/07 10:29 Order name: PT-INR; Complete Time: 13:16 kdr 06/07 10:29 Order name: Troponin (emerg Dept Use Only); Complete Time: 13:16 kdr 06/07 10:29 Order name: XRAY Chest (1 view); Complete Time: 13:16 kdr 06/07 10:29 Order name: Basic Metabolic Panel; Complete Time: 13:16 EDMS 06/07 10:29 Order name: CBC with Automated Diff; Complete Time: 13:16 EDMS 06/07 10:29 Order name: Liver (Hepatic) Function; Complete Time: 13:16 EDMS 06/07 16:01 Order name: CT Chest For PE Angio; Complete Time: 17:46 kdr 06/07 10:29 Order name: Cardiac monitoring; Complete Time: 14:31 kdr 06/07 10:29 Order name: EKG - Nurse/Tech; Complete Time: 14:31 kdr 06/07 10:29 Order name: IV Saline Lock; Complete Time: 14: kdr 06/07 10:29 Order name: Labs collected and sent; Complete Time: : kdr 06/07 10:29 Order name: O2 Per Protocol; Complete Time: 14: kdr 06/07 10:29 Order name: O2 Sat Monitoring; Complete Time: 14: kdr Administered Medications: No medications were administered Disposition: 06/07/20 18:53 Discharged to Home. Impression: SOB, Congestive Heart Failure, Chronic pain syndrome. - Condition is Stable. - Medication Reconciliation Form, Thank You Letter, Antibiotic Education, Prescription Opioid Use form. - Follow up: Will Tejeda MD; When: 2 - 3 days; Reason: If symptoms return, Further diagnostic work-up, Recheck today's complaints, Continuance of care, Re-evaluation by your physician. - Problem is new. - Symptoms have improved. Signatures: Dispatcher [employer] Courtney Fowler RN RN Luis Mai MD MD [facility] Lucy Padilla RN RN tw2 Corrections: (The following items were deleted from the chart) 18:49 18:08 Hospitalization Ordered by Shane Nevarez DO for Observation. Preliminary kdr diagnosis is SOB, CHF Exacerbation. Bed requested for Telemetry/MedSurg (observation). Status is Observation. Condition is Fair. Problem is an acute exacerbation. Symptoms have improved. kdr 19:20 18:53 06/07/2020 18:53 Discharged to Home. Impression: SOB, Congestive Heart Failure; tw2 Chronic pain syndrome. Condition is Stable. Forms are Medication Reconciliation Form, Thank You Letter, Antibiotic Education, Prescription Opioid Use. Follow up: Will Tejeda; When: 2 - 3 days; Reason: If symptoms return, Further diagnostic work-up, Recheck today's complaints, Continuance of care, Re-evaluation by your physician. Problem is new. Symptoms have improved. kdr
[2020-06-07 19:29] VITALS: TEMP 97.9
[2020-06-07 19:36] VITALS: O2SAT 98
[2020-06-07 19:38] VITALS: BP 168/81
== END 2020-06-07 19:20 | disposition home or self-care (01) ==
LOC: ER 10:12
DX: I50.9 Heart failure, unspecified (principal); G89.4 Chronic pain syndrome; I10 Essential (primary) hypertension; Z94.4 Liver transplant status; Z85.05 Personal history of malignant neoplasm of liver; Z88.1 Allergy status to other antibiotic agents; Z88.5 Allergy status to narcotic agent
CPT/HCPCS: 36415; 71045; 71275; 80048; 80076; 83735; 83880; 84484; 85025; 85610; 99284; Q9967

== ENCOUNTER 2020-10-05 10:35 | Emergency (ER) | payer OTHER ==
--- OUTSIDE RECORDS SUMMARY | 2020-10-05 10:41 | XMS REPORT | Continuity of Care Document ---
:1955 Author Organization [facility] t Address [address] [place] [address] Care Team Providers Name Role Phone Asked, Pcp Primary Care Physician Unavailable Dangelo Canseco MD Attending Clinician Saleem Dan Attending Clinician Unavailable Domenico Attending Clinician Unavailable Claudio RN, N Attending Clinician Unavailable Chet Attending Clinician Unavailable Jina VALLADARES Attending Clinician Unavailable Hadley VALLADARES, Y Attending Clinician Unavailable Tru VALLADARES Attending Clinician Unavailable Irvin Newby MD Attending Clinician Krista VALLADARES, P Attending Clinician Unavailable Mega Salinas MD Attending Clinician PEYMAN SHAH Attending Clinician Unavailable IRVIN NEWBY Attending Clinician Unavailable Renato GARCIA Attending Clinician Unavailable GHAZALA RODRIGUES Attending Clinician Unavailable MEGA SALINAS Attending Clinician Unavailable Coni RAMIREZ Attending Clinician Unavailable PEYMAN SHAH Admitting Clinician Unavailable Renato GARCIA Admitting Clinician Unavailable GHAZALA RODRIGUES Admitting Clinician Unavailable Coni RAMIREZ Admitting Clinician Unavailable Payers Payer Name Policy Type Policy Effective Date Expiration Date Sour ce Number [facility] [id number] 2018 MITZI Alfaro [facility] - MEDICARE MGD 00:00:00 - Medical [facility] [id number] 019-Present [facility] [id number] [facility] [facility] - MEDICARE 00:00:00 - Medica l MGD CAREOPTUM [facility] [id number] splants MC Problems Condition Condition Condition Status Onset Resolution Last Treating Co mments Source Name Details Category Date Date Treatment Clinician Date Screening Screening Disease Active [facility] for 11-18 [facility] - malignant malignant 00:00: [facility] erasmo neoplasm neoplasm 00 Center ESRD (end ESRD (end Disease Active 2018-03 Joanna ston stage stage 0-10 Methodi renal renal 00:00: st disease) disease) 00 on on dialysis dialysis AV AV Disease Active 2018-03 [place] (arteriove (arteriove 0-10 Me thodi nous nous 00:00: st fistula) fistula) 00 Diabetes [facility] Method i with with 00:[facility]: st hyperglyce hyperglyce 00 [facility] john Pleural Pleural Disease Active [facility] effusion effusion 6-13 [facility] - 00:00: Medical 00 Center Acute on Acute on Disease Active [facility] chronic chronic 6-13 [facility] - renal renal 00:00: Medical failure failure 00 Center Normochrom Normochrom Disease Active [facility] ic ic 6-13 [facility] - normocytic normocytic 00:00: Me dical anemia anemia 00 Center KRISTIAN (acute KRISTIAN (acute Disease Active [facility] kidney kidney 5-26 [facility] - injury) injury) 00:00: Medical 00 Center Chest pain Chest pain Disease Active [facility] 5-17 [facility] - 00:00: Medical 00 Center Immunosupp Immunosupp Disease Active Last [facility] ression ression 10-18 [facility] - 00:00: t & Plan: Medical 00 On Center prograf maintenan ce- will adjust according to level. CKD CKD Disease Active Last [facility] (chronic (chronic 10-18 [facility] - kidney kidney 00:00: t & Plan: Medical disease) disease) 00 Kidney Center function has recovered . Dr. Saini following . Hyperkalem Hyperkalem Disease Active Last [facility] ia ia 10-14 [facility] - 00:00: t & Plan: Medical 00 Resolved Center with discontin uation of losartan and avoidance of K in diet, while on prograf. Continue to monitor- labs pending. Liver Liver Disease Active Last [facility] St replaced replaced 09-30 Assessmesha [facility] - by by 00:00: t & Plan: Medical transplant transplant 00 Excellent Center graft function. Type 2 Type 2 Disease Active Last [facility] St diabetes diabetes 9-25 Assessmen [facility] - mellitus mellitus 00:00: t & Plan: Med ical with with 00 Blood Center diabetic diabetic sugars polyneurop polyneurop controlle athy, with athy, with d. long-term long-term current current use of use of insulin insulin Obesity Obesity Disease Active [facility] (BMI (BMI 9-25 [facility] - 30-39.9) 30-39.9) 00:00: t & Plan: Med ical 00 Patient Center has not yet started to diet. Patient uses a walker but seems motivated to make changes. States she has lost 45 pounds in anticipat ion of transplan t. Lipid profile looks good on last lab draw. Portal Portal Disease Active [facility] hypertensi hypertensi 10-29 [facility] - on on 00:00: t & Plan: Medical 00 Manifeste Center d by ugo tom. HCC HCC Disease Active [facility] (hepatocel ([facility]patocel 10-[facility] - lular lular 00:00: t & Plan: Medical carcinoma) carcinoma) 00 2 foci of Center HCC without lymphovas cular invasion. Continue with HCC surveilla nce using cross-sec tional imaging. Hepatitis Hepatitis Disease Active [facility] C, C, 10-29 Dayna Jarquin - genotype genotype 00:00: t & Plan: Med ical 3a 3a 00 Patient Center is s/p liver transplan t. Is being followed by hepatolog y. Immunity Immunity Disease Active Last [facility] t status status 10-29 Dayna Jarquin - testing testing 00:00: t & Plan: [...] Disease Active C [facility] (BMI (BMI [facility] - 25.0-29.9) 25.0-29.9) [facility] Metabolic Metabolic Disease Active [facility] syndrome syndrome [facility] Allergies, Adverse Reactions, Alerts Allergy Allergy Status Severity Reaction(s) Onset Inactive Treating Comm ents Source Name Type Date Date Clinician Levoflox Propensi Active Rash [place] ac[place] to 11-20 Methodi adverse 00:00: st reaction 00 s to drug Codeine Propensi Active Itching [place] ty to 11-13 Methodi adverse 00:00: st reaction 00 s to drug Levoflox Propensi Active Itching,r [facility] ac[facility] ty to 09-30 [facility] - adverse 00:00: burning Medical reaction 00 on the Center s site only. Codeine Drug Active Rash [facility] Allergy 10-29 [facility] - 00:00: Medical 00 Helen Family History Family Member Diagnosis Comments Start Date Stop Date Source Natural mother Stroke [facility] Natural sister Cancer [facility] Social History Social Habit Start Date Stop Date Quantity Comments Source History of tobacco Current smoker [place] [facility] use Sex Assigned At [facility] Center Cigarettes smoked 2020-05-04 2020-05-04 [facility] - current (pack per 00:00:00 00:00:00 [facility] day) - Reported Cigarette 2020-05-04 2020-05-04 [facility] - pack-years 00:00:00 00:00:00 [facility] Tobacco use and 2020-05-04 2020-05-04 Never used [facility] - exposure 00:00:00 00:00:00 [facility] Alcohol intake 2020-05-04 2020-05-04 [facility] - 00:00:00 00:00:00 non-drinker of Medical Ce nter alcohol (finding) Alcohol Comment 2016-08-08 2016-08-08 1 drink/ 2 [facility] - 00:00:00 00:00:00 months [facility] Smoking Status Start Date Stop Date Source Former smoker 2020-05-04 00:00:00 2020-05-04 00:00:00 [facility] Medications Ordered Filled Start Stop Current Ordering Indication Dosage Frequency Signature Comments Components Source Medication Medication Date Date Medication? Clinician (SIG) Name Name tacrolimus 2019-03 Yes TAKE 3 [facility] (PROGRAF) 1 1-20 CAPSULES Luke s - MG capsule 00:00: BY MOUTH Med ical 00 TWO TIMES Center DAILY tacrolimus 2019-03 2020- No 2mg Q.5D Take [address] (PROGRAF) 1 1-02 11-20 capsules Abiola es - MG capsule 00:00: 00:00 (2 mg Medic al 00 :00 total) by Center mouth 2 (two) times daily. metoprolol 0 Yes 100mg Q.5D Take [address] (TOPROL-XL) 1-21 mg by [facility] - 100 MG 24 18:16: mouth 2 Medic al hr tablet 17 (two) Center times daily. traMADol Yes 50mg Take [address] (ULTRAM) 50 1-21 by mouth 2 Melony kes - mg tablet 18:16: (two) Medical 17 times Center daily as needed for Pain . atorvastati Yes 40mg QD Take [address] n (LIPITOR) 1-21 by mouth Luke s - 40 MG 18:16: daily. Medical tablet 17 Center sodium Yes 500mL Inject [address] chloride 1-21 mLs [facility]ukes - 0.9% (NS) 00:00: intravenou Me dical infusion 00 sly Center continuous . atorvastati 2018-03 Yes 40mg QD Take 40 mg [place] n (LIPITOR) 0-11 by mouth Meth jordy 40 MG 21:28: daily. st tablet 04 furosemide 2018-03 Yes 40mg QD Take 40 mg [place] (LASIX) 40 0-11 by mouth Metho di mg tablet 21:28: daily. st 04 LANTUS 2018-03 Yes 15U QD Inject 15 [place] SOLOSTAR 0-11 Units Methodi U-100 21:28: under the st INSULIN 100 04 skin every unit/mL morning. injection (pen) lactulose 2018-03 Yes 20g QD Take 20 g Joanna ston (CHRONULAC) 0-11 by mouth Meth jordy 10 gram/15 21:28: daily. st mL solution 04 traMADol 2018-03 Yes 50mg [id number] Take 50 mg [place] (ULTRAM) 50 0-11 [id number] by mouth 3 Methodi mg tablet 21:28: 3D (three) st 04 times a day as needed for moderate pain or severe pain. metoprolol 2018-03 Yes 50mg Q.5D Take 50 mg [place] tartrate 0-11 by mouth 2 Metho di (LOPRESSOR) 21:28: (two) st 100 mg 04 times a tablet day. tacrolimus 2018-03 Yes 3mg QD Take 3 mg [place] (PROGRAF) 1 0-11 by mouth Meth jordy MG capsule 21:28: every st 04 morning. Note: Pt is taking 3 cap QAM and 2 caps QHS. tacrolimus 2018-03 Yes 2mg QD Take 2 mg [place] (PROGRAF) 1 0-11 by mouth Meth jordy MG capsule 21:28: nightly. st 04 Note: Pt is taking 3 cap QAM and 2 caps QHS. ergocalcife 2018-03 Yes [id number] Q7D Take [place] 0-11 50,000 Methodi (VITAMIN 21:28: Units by st D2) 50,000 04 mouth once unit a week. ( capsule Saturday ) tacrolimus 2019- No 3mg in the [facility]3] (PROGRAF) 1 9-16 11-02 morning Luke s - MG capsule 00:00: 00:00 and 2mg at Medical 00 :00 night. Center insulin Yes 15U QD Inject 15 [facility] glargine 8-27 Units [facility]ukes - (LANTUS 00:00: subcutaneo Medi erasmo SOLOSTAR 00 usly every Cente r U-100 morning. INSULIN) 100 unit/mL (3 mL) InPn blood sugar Yes Diabetes Test 4 [facility]3] diagnostic 7-31 (HCC) times [facility]ukes - (EASY 00:00: daily, Medical TOUCH) Strp [address] and at bedtime. Immunizations Ordered Immunization Filled Immunization Date Status Commen ts Source Name Name Pneumococcal 2016-08-09 Completed [facility]3] [facility] - Polysaccharide 00:00:00 Medical Ce nter (Pneumovax) Vital Signs Vital Name Observation Time Observation Value Comments Source Body height 2020-05-04 15:11:00 165.1 cm [facility] Body weight 2020-05-04 15:11:00 87 kg [facility] BMI 2020-05-04 15:11:00 31.92 kg/m2 [facility] Procedures This patient has no known procedures. Plan of Care Planned Activity Planned Date Details Comments Source Future Scheduled 2021-08-09 PNEUMOCOCCAL 65+ YRS [facility] - Test 00:00:00 (1 of 1 - [facility] Center [id number] PCV13) [code = PNEUMOCOCCAL 65+ YRS (1 of 1 - [id number] PCV13)] Future Scheduled 2020-11-23 INFLUENZA VACCINE (#1) [facility] - Test 00:00:00 [code = INFLUENZA Medical Ce nter VACCINE (#1)] Future Scheduled 2020-10-23 INFLUENZA VACCINE [place] [facility] Test 00:00:00 [code = INFLUENZA VACCINE] Future Scheduled 2020-03-[address] [facility] - Test 00:00:00 (12+) [code = [facility] Center DEPRESSION SCREENING (12+)] Future Scheduled 2019-07-[address] [facility] - Test 00:00:00 WELLNESS (YEAR 2 or [facility] Center FIRST YEAR if no IPPE) [code = MEDICARE ANNUAL WELLNESS (YEAR 2 or FIRST YEAR if no IPPE)] Future Scheduled 2019-02-[address] Melony kes - Test 00:00:00 [facility] (procedure) [code = 44169336] Future Scheduled 2003 BREAST CANCER [facility] Test 00:00:00 SCREENING [code = BREAST CANCER SCREENING] Future Scheduled 2003 COLONOSCOPY SCREENING [place] [facility] Test 00:00:00 [code = COLONOSCOPY SCREENING] Future Scheduled 2003 SHINGLES VACCINES (#1) H vasyl [facility] Test 00:00:00 [code = SHINGLES VACCINES (#1)] Future Scheduled 2003 SHINGLES VACCINES ([address] [facility] - Test 00:00:00 of 2) [code = SHINGLES Medic al Center VACCINES (1 of 2)] Future Scheduled 1972-01-08 DTAP/TDAP/TD VACCINES [facility] - Test 00:00:00 (1 - Tdap) [code = Medical C enter DTAP/TDAP/TD VACCINES (1 - Tdap)] Future Scheduled 1965 COVID-19 VACCINE (1) [facility] Test 00:00:00 [code = COVID-19 VACCINE (1)] Future Scheduled 1965 COVID-19 VACCINE (1) [facility] - Test 00:00:00 [code = COVID-[address] VACCINE (1)] Future Scheduled 1963 DIABETES: RETINAL EYE [place] [facility] Test 00:00:00 EXAM [code = DIABETES: RETINAL EYE EXAM] Future Scheduled 1963 DIABETIC FOOT EXAM [place] [facility] Test 00:00:00 [code = DIABETIC FOOT EXAM] Future Scheduled 1963 DIABETIC EYE EXAM [facility] - Test 00:00:00 [code = DIABETIC EYE Medical Center EXAM] Future Scheduled [address] [facility] - Test 00:00:00 examination Medical Center (regime/therapy) [code = 368837985] Future Scheduled 1963 Urine screening for [facility] - Test 00:00:00 protein (procedure) Medical Center [code = 668254995] Future Scheduled 1959 65+ PNEUMOCOCCAL [facility] [facility] Test 00:00:00 VACCINE (1 of 4 - PCV13) [code = 65+ PNEUMOCOCCAL VACCINE (1 of 4 - PCV13)] Future Scheduled [address] [facility] - Test 00:00:00 [facility] breast (procedure) [code = 611355022] Future Scheduled [address] [facility] - Test 00:00:00 [facility] colon (procedure) [code = 361216498] Results Test Description Test Time Test Comments Results Result Comments Source POCT-GLUCOSE METER 2019-04-14 17:00:00 Test Item Value Reference Range Interpretation Comme nts POC-GLUCOSE METER (BEAKER) 82 mg/dL 70-110 : TESTED AT [facility] [address] [facility] (test code = 1538) [facility] [id number]: Graduate Research Assistant/Techni leah ID = [id number] for Dimitry Sparks POCT-GLUCOSE [id number] 13:38:00 Test Item Value Reference Range Interpretation Comments POC-GLUCOSE METER 143 mg/dL 70-110 H : TESTED A T [facility] [address] (BEAKER) (test code [facility] [address], = 1538) [facility] [address]: Graduate Research Assistant/Techni leah ID = [id number] for [facility] BASIC METABOLIC [id number] 14:15:00 Test Item Value Reference Range Interpretation [...] S NOT APPLICABLE FOR DIALYSIS PATIEN TS. [id number] 14:10:00 Test Item Value Reference Range Interpretation [...] Information (Auto Output)CBC W/PLT COUNT & AUTO [id number] 13:57:00 Test Item Value Reference Range Interpretation [...] (BEAKER) (test code = 2801) HEPATITIS PANEL, [id number] 13:23:00 Test Item Value Reference Range Interpretation Comments HEPATITIS A IGM ANTIBODY (BEAKER) Nonreactive Nonreactive (test code = 498) HEPATITIS B CORE IGM ANTIBODY Nonreactive Nonreactive (BEAKER) (test code = 645) HEPATITIS C ANTIBODY (BEAKER) Reactive Nonreactive A (test code = 367) HEPATITIS B SURFACE ANTIGEN (2) Nonreactive Nonreactive (BEAKER) (test code = 2585) HEPATITIS C PCR, [id number] 09:00:00 Test Item Value Reference Range Interpretation Comments HCV RESULT COMPONENT HCV RNA not detected HCV RNA not detected (BEAKER) (test code = 2699) This test uses a Real-Time Polymerase Chain Reaction (RT-PCR) methodology and was performed using LAZ Ampliprep/LAZ TaqMan HCV test kit version 2.0 ([employer]).Reportable range for this assay is 15 - 100,000,000 IU per mL (1.18 - 8.00 Log IU/mL).RAD, CHEST, 2 [id number] 12:43:00PA and Lateral for Liver TransplantReason for [...] No acute cardiopulmonary abnormality. Signed: Blue Jones MDReport Verified Date/Time: 11/18/2018 12:43:30 Reading Location: [facility] Women 12:43 PMU/S, ABDOMINAL, WITH [id number] 12:41:00Doppler Study to evaluate Hepatic vesselsReason for [...] MDReport Verified Date/Time: 11/18/2018 12:41:02 Reading Location: [address] Radiology ReadingRoom TACROLIMUS [id number] 11:19:00 Test Item Value Reference Range Interpretation Comments TACROLIMUS BLOOD (BEAKER) (test 12.6 ng/mL 10.0-20.0 code = 657) COMPREHENSIVE METABOLIC [id number] 09:26:00 Test Item Value Reference Range Interpretation [...] S NOT APPLICABLE FOR DIALYSIS PATIEN TS. [id number] 08:48:00 Test Item Value Reference Range Interpretation Comments PHOSPHORUS (BEAKER) (test code = 6.5 mg/dL 2.3-4.7 H 604) [id number] 08:48:00 Test Item Value Reference Range Interpretation Comments MAGNESIUM (BEAKER) (test code = 3.1 mg/dL 1.6-2.6 H 627) BILIRUBIN, [id number] 08:48:00 Test Item Value Reference Range Interpretation Comments BILIRUBIN DIRECT (BEAKER) (test 0.4 mg/dL 0.1-0.5 code = 706) CBC W/PLT COUNT & AUTO [id number] 08:07:00 Test Item Value Reference Range Interpretation [...] PERCENT (BEAKER) (test code = 2801) POCT-GLUCOSE [id number] 14:28:00 Test Item Value Reference Range Interpretation Comments POC-GLUCOSE METER 89 mg/dL 70-110 TESTED AT [facility] 67[address] (BEAKER) (test code = [place] [address] 1538) POCT-GLUCOSE [id number] 11:40:00 Test Item Value Reference Range Interpretation Comments POC-GLUCOSE METER 131 mg/dL 70-110 H TESTED AT [facility] [address] (BEAKER) (test code = [place] 15[address]) [id number] TACROLIMUS [id number] 09:35:00 Test Item Value Reference Range Interpretation Comments TACROLIMUS BLOOD (BEAKER) (test 5.7 ng/mL 10.0-20.0 L code = 657) POCT-GLUCOSE [id number] 07:27:00 Test Item Value Reference Range Interpretation Comments POC-GLUCOSE METER 101 mg/dL 70-110 TESTED AT [facility] [address] (BEAKER) (test code = [place] 1538) [address] BASIC METABOLIC [id number] 06:57:00 Test Item Value Reference Range Interpretation [...] APPLICABLE FOR DIALYSIS PATIEN TS. HEPATIC FUNCTION [id number] 06:56:00 Test Item Value Reference Range Interpretation [...] = 19 U/L 5-34 353) ALT (SGPT) ([facility] (test code = 15 U/L 6-55 347) POCT-GLUCOSE [id number] 16:39:00 Test Item Value Reference Range Interpretation Comments POC-GLUCOSE METER 149 mg/dL 70-110 H TESTED AT [place] [address] ([facility] (test code = [facility] 1538) [address] HEPATITIS B SURFACE [id number] 15:26:00 Test Item Value Reference Range Interpretation Comments HEPATITIS B SURFACE ANTIBODY < mIU/mL <8.0 ([facility] (test code = 647) POCT-GLUCOSE [id number] 12:22:00 Test Item Value Reference Range Interpretation Comments POC-GLUCOSE METER 141 mg/dL 70-110 H TESTED AT [place] [address] ([facility] (test code = [facility] 1538) [address] TACROLIMUS [id number] 09:43:00 Test Item Value Reference Range Interpretation Comments TACROLIMUS BLOOD ([facility] (test 5.5 ng/mL 10.0-20.0 L code = 657) POCT-GLUCOSE [id number] 07:48:00 Test Item Value Reference Range Interpretation Comments POC-GLUCOSE METER 135 mg/dL 70-110 H TESTED AT [place] [address] ([facility] (test code = [facility] 1538) [address] BASIC METABOLIC [id number] 07:00:00 Test Item Value Reference Range Interpretation [...] APPLICABLE FOR DIALYSIS PATIEN TS. HEPATIC FUNCTION [id number] 06:54:00 Test Item Value Reference Range Interpretation [...] code = 15 U/L 6-55 347) POCT-GLUCOSE [id number] 16:29:00 Test Item Value Reference Range Interpretation Comments POC-GLUCOSE METER 167 mg/dL 70-110 H TESTED AT [place] [address] ([facility] (test code = [facility] 1538) [address] POCT-GLUCOSE [id number] 12:30:00 Test Item Value Reference Range Interpretation Comments POC-GLUCOSE METER 116 mg/dL 70-110 H TESTED AT [place] [id number] ([facility] (test code = [facility] 1538) [address] TACROLIMUS [id number] 11:11:00 Test Item Value Reference Range Interpretation Comments TACROLIMUS BLOOD (BEAKER) (test 4.3 ng/mL 10.0-20.0 L code = 657) HEPATITIS C PCR, [id number] 09:05:00 Test Item Value Reference Range Interpretation Comments HCV RESULT COMPONENT HCV RNA not detected HCV RNA not detected ([facility] (test code = 2699) This test uses a Real-Time Polymerase Chain Reaction (RT-PCR) methodology and was performed using LAZ Ampliprep/LAZ TaqMan HCV test kit version 2.0 ([employer] Inc).Reportable range for this assay is 15 - 100,000,000 IU per mL (1.18 - 8.00 Log IU/mL).POCT-GLUCOSE [id number] 08:55:00 Test Item Value Reference Range Interpretation Comments POC-GLUCOSE METER 114 mg/dL 70-110 H TESTED AT [place] [address] ([facility] (test code = [facility] Jack [facility] 1538) [id number] HEPATIC FUNCTION [id number] 06:29:00 Test Item Value Reference Range Interpretation Comments TOTAL PROTEIN ([facility] (test code = 6.5 gm/dL 6.0-8.3 770) ALBUMIN ([facility] (test code = 1145) 3.0 g/dL 3.5-5.0 L BILIRUBIN TOTAL ([facility] (test code 0.8 mg/dL 0.2-1.2 = 377) BILIRUBIN DIRECT ([facility] (test 0.5 mg/dL 0.1-0.5 code = 706) ALKALINE PHOSPHATASE ([facility] (test 86 U/L 40-150 code = 346) AST (SGOT) ([facility] (test code = 14 U/L 5-34 353) ALT (SGPT) ([facility] (test code = 11 U/L 6-55 347) POCT-GLUCOSE [id number] 22:27:00 Test Item Value Reference Range Interpretation Comments POC-GLUCOSE METER 272 mg/dL 70-110 H TESTED AT [place] [address] ([facility] (test code = [facility] Jack [facility] 1538) [address] POCT-GLUCOSE [id number] 16:45:00 Test Item Value Reference Range Interpretation Comments POC-GLUCOSE METER 108 mg/dL 70-110 TESTED AT [place] [address] ([facility] (test code = [facility] 1538) [id number] POCT-GLUCOSE [id number] 11:54:00 Test Item Value Reference Range Interpretation Comments POC-GLUCOSE METER 153 mg/dL 70-110 H TESTED AT [place] [address] ([facility] (test code = [facility] 1538) [id number] TACROLIMUS [id number] 09:55:00 Test Item Value Reference Range Interpretation Comments TACROLIMUS BLOOD (BEAKER) (test 5.5 ng/mL 10.0-20.0 L code = 657) U/S, [id number] 09:51:00Laterality?->RightReason for exam:->dyspneaFINAL REPORT Exam: Ultrasound guided [...] Signed: Al Phillips MDReport Verified Date/Time: 09/09/2018 09:51:20 Reading Location: [address] Transitional Reading Room BASIC METABOLIC PANEL 2018-09-09 08:37:00 [...] NOT APPLICABLE FOR DIALYSIS PATIEN TS. POCT-GLUCOSE [id number] 07:33:00 Test Item Value Reference Range Interpretation Comments POC-GLUCOSE METER 175 mg/dL 70-110 H TESTED AT [facility] 67 ([facility] [facility] (test code = [employer]2 [employer] [facility] 1538) [address] HEPATIC FUNCTION [id number] 06:51:00 Test Item Value Reference Range Interpretation Comments TOTAL PROTEIN (BEAKER) (test code = 6.5 gm/dL 6.0-8.3 770) ALBUMIN ([facility] (test code = 1145) 3.0 g/dL 3.5-5.0 L BILIRUBIN TOTAL (BEAKER) (test code 0.8 mg/dL 0.2-1.2 = 377) BILIRUBIN DIRECT ([facility] (test 0.5 mg/dL 0.1-0.5 code = 706) ALKALINE PHOSPHATASE (BEAKER) (test 94 U/L 40-150 code = 346) AST (SGOT) (BEAKER) (test code = 13 U/L 5-34 353) ALT (SGPT) ([facility] (test code = 10 U/L 6-55 347) POCT-GLUCOSE [id number] 01:03:00 Test Item Value Reference Range Interpretation Comments POC-GLUCOSE METER 207 mg/dL 70-110 H TESTED AT [place] [address] ([facility] (test code = [employer] [facility] 1538) [address] POCT-GLUCOSE [id number] 16:52:00 Test Item Value Reference Range Interpretation Comments POC-GLUCOSE METER 296 mg/dL 70-110 H TESTED AT [place] [address] ([facility] (test code = [employer] [facility] 1538) [address] ANG, TUNNELED CATHETER [id number] 15:43:00Tunneled dialysis catheter placement, may be done [...] Physician intra- service time was 20 min. Laboratory Mechanical Technician: Yessenia. Plant Pathology Teacher: None. Approach: Right internal jugular vein Estimated [...] needle into the right atrium. A 4 Sudanese micropuncture sheath was placed. A subcutaneous tunnel was created in the right anterior chest wall by blunt dissection. A 19 cm 15.5 Sudanese Duraflow 2 catheter was brought through the [...] guidance and conscious sedation. Signed: Alfredo Casas MDReport Verified Date/Time: 09/08/2018 15:43:17 Reading Location: [facility] P048 Angio Body Reading Room CYTOLOGY 2018-09-08 11:56:00Medical Cytology Report Case: [id number] Authorizing Provider: Wero Sharp MD Collected: 09/04/2018 1820 Ordering Location: [address] Received: 09/05/2018 0846 Pathologist: Donnie Otoole MD Specimen: Pleural, Right RIGHT PLEURAL FLUID (CYTOSPINS AND CELL BLOCK): - REACTIVE MESOTHELIAL CELLS IN A BACKGROUND OF CHRONIC INFLAMMATION Signing Pathologist Direct Phone Line: [phone] signed by Donnie Otoole MD on 09/08/2018 at 11:56 [id number], [id number] pleural effusion, history of hepatocellular cancerRIGHT PLEURAL VLXAR3930 mls orange; 4 cytospins, cell blockCollected: [id number]: [id number] [facility], Department of Pathology, [address] [place] [address], Tel [phone], Department of [facility]ology, [address] [place] [address], [facility], Department of Pathology, [address] [place] [address], CHEK-GLUCOSE [id number] 11:51:00 Test Item Value Reference Range Interpretation Comments POC-GLUCOSE METER 166 mg/dL 70-110 H TESTED AT [place] [address] (BEAKER) (test code = [facility] 1538) [address] TACROLIMUS [id number] 11:01:00 Test Item Value Reference Range Interpretation Comments TACROLIMUS BLOOD (BEAKER) (test 7.3 ng/mL 10.0-20.0 L code = 657) BASIC METABOLIC [id number] 07:58:00 Test Item Value Reference Range Interpretation [...] APPLICABLE FOR DIALYSIS PATIEN TS. HEPATIC FUNCTION [id number] 07:37:00 Test Item Value Reference Range Interpretation [...] 6-55 347) CBC W/PLT COUNT & AUTO [id number] 06:02:00 Test Item Value Reference Range Interpretation [...] PERCENT (BEAKER) (test code = 2801) POCT-GLUCOSE [id number] 21:57:00 Test Item Value Reference Range Interpretation Comments POC-GLUCOSE METER 156 mg/dL 70-110 H TESTED AT [facility] 6720 (BEAKER) (test code = BRENDA MURRAY 1538) [address] POCT-GLUCOSE [id number] 17:25:00 Test Item Value Reference Range Interpretation Comments POC-GLUCOSE METER 111 mg/dL 70-110 H TESTED AT [facility] 6720 ([facility] (test code = [facility] 1538) [address] BODY FLUID CULTURE + GRAM [id number] 15:07:00 Test Item Value Reference Range Interpretation Comments CULTURE ([facility]) (test code No growth = 1095) GRAM STAIN RESULT ([facility]) <1+ WBCs (test code = 1123) GRAM STAIN RESULT ([facility] No organisms seen (test code = 67960) POCT-GLUCOSE [id number] 12:46:00 Test Item Value Reference Range Interpretation Comments POC-GLUCOSE METER 87 mg/dL 70-110 TESTED AT [place] [address] ([facility] (test code = [facility] [address] 1538) TACROLIMUS [id number] 11:03:00 Test Item Value Reference Range Interpretation Comments TACROLIMUS BLOOD ([facility] (test 10.0 ng/mL 10.0-20.0 code = 657) POCT-GLUCOSE [id number] 08:16:00 Test Item Value Reference Range Interpretation Comments POC-GLUCOSE METER 126 mg/dL 70-110 H TESTED AT [place] [address] ([facility] (test code = [facility] 1538) [address] BASIC METABOLIC [id number] 06:40:00 Test Item Value Reference Range Interpretation [...] APPLICABLE FOR DIALYSIS PATIEN TS. HEPATIC FUNCTION [id number] 06:33:00 Test Item Value Reference Range Interpretation [...] 6-55 347) CBC W/PLT COUNT & AUTO [id number] 05:51:00 Test Item Value Reference Range Interpretation [...] PERCENT (BEAKER) (test code = 2801) POCT-GLUCOSE [id number] 21:41:00 Test Item Value Reference Range Interpretation Comments POC-GLUCOSE METER 135 mg/dL 70-110 H TESTED AT [facility] 67 ([facility]) (test code = [facility] 1538) [address] [id number] 20:16:00 Test Item Value Reference Range Interpretation Comments FERRITIN (BEAKER) (test code = 361) 73 ng/mL 5-275 POCT-GLUCOSE [id number] 18:07:00 Test Item Value Reference Range Interpretation Comments POC-GLUCOSE METER 158 mg/dL 70-110 H TESTED AT [facility] 6720 ([facility] (test code = [facility] 1538) [address] RETICULOCYTE [id number] 14:40:00 Test Item Value Reference Range Interpretation Comments RETICULOCYTE COUNT PCT (BEAKER) (test 3.7 % 0.5-1.7 H code = 575) HEPATITIS B CORE ANTIBODY, [id number] 14:27:00 Test Item Value Reference Range Interpretation Comments HEPATITIS B CORE TOTAL ANTIBODY Nonreactive Nonreactive ([facility]) (test code = 497) TSH/FREE T4 IF [id number] 14:27:00 Test Item Value Reference Range Interpretation Comments THYROID STIMULATING HORMONE 1.44 uIU/mL 0.35-4.94 (AKER) (test code = 772) [id number] 14:20:00 Test Item Value Reference Range Interpretation Comments PROTIME (BEAKER) (test code = 14.7 seconds 11.9-14.2 H 759) INR (BEAKER) (test code = 370) 1.2 <=5.9 PARTIAL THROMBOPLASTIN TIME 35.3 seconds 22.5-36.0 (AKER) (test code = 760) Effective 08/20/2018: PT Reference Range ChangeNew: 11.9-14.2 Previous: 11.7- 14.7RECOMMENDED COUMADIN/WARFARIN INR THERAPY RANGESSTANDARD DOSE: 2.0-3.0 Includes: PROPHYLAXIS for venous thrombosis, systemic embolization; TREATMENT for venous thrombosis and/or pulmonary embolus.HIGH RISK: Target INR is2.5-3.5 for patients wiht mechanical heart valves.PTH, [id number] 14:07:00 Test Item Value Reference Range Interpretation Comments PARATHYROID HORMONE INTACT 311.0 pg/mL 8.5-72.5 H ([facility] (test code = 577) IRON, TIBC, % SAT. (WITHOUT FERRITIN)2018-09-06 14:00:00 Test Item Value Reference Range Interpretation Comments IRON ([facility] [facility]) (test code = 547) 24.0 ug/dL 40.0-160.0 L TOTAL IRON BINDING CAPACITY 308 ug/dL 250-450 (AKER) (test code = 769) IRON % SATURATION (2) (AKER) 8 % 20-55 L (test code = 2590) TACROLIMUS [id number] 13:41:00 Test Item Value Reference Range Interpretation Comments TACROLIMUS BLOOD (AKER) (test 7.2 ng/mL 10.0-20.0 L code = 657) POCT-GLUCOSE [id number] 11:43:00 Test Item Value Reference Range Interpretation Comments POC-GLUCOSE METER 191 mg/dL 70-110 H TESTED AT [facility] 6720 ([facility] (test code = [facility] 153) [address] POCT-GLUCOSE [id number] 08:45:00 Test Item Value Reference Range Interpretation Comments POC-GLUCOSE METER 119 mg/dL 70-110 H TESTED AT [facility] 6720 (BEAKER) (test code = BRENDA Santiago [facility] 1538) [address] BASIC METABOLIC [id number] 07:28:00 Test Item Value Reference Range Interpretation [...] APPLICABLE FOR DIALYSIS PATIEN TS. HEPATIC FUNCTION [id number] 07:26:00 Test Item Value Reference Range Interpretation [...] 347) hemolyzed CBC W/PLT COUNT & AUTO [id number] 06:31:00 Test Item Value Reference Range Interpretation [...] PERCENT (BEAKER) (test code = 2801) POCT-GLUCOSE [id number] 22:37:00 Test Item Value Reference Range Interpretation Comments POC-GLUCOSE METER 144 mg/dL 70-110 H TESTED AT [facility] 67 ([facility]) (test code = [facility] 1538) [address] POCT-GLUCOSE [id number] 16:48:00 Test Item Value Reference Range Interpretation Comments POC-GLUCOSE METER 207 mg/dL 70-110 H TESTED AT [place] [address] ([facility] (test code = [facility] 1538) [address] POCT-GLUCOSE [id number] 12:16:00 Test Item Value Reference Range Interpretation Comments POC-GLUCOSE METER 191 mg/dL 70-110 H TESTED AT [place] [address] ([facility]) (test code = [facility] 1538) [address]269 TACROLIMUS [id number] 11:23:00 Test Item Value Reference Range Interpretation Comments TACROLIMUS BLOOD (BEAKER) (test 5.7 ng/mL 10.0-20.0 L code = 657) BASIC METABOLIC [id number] 06:24:00 Test Item Value Reference Range Interpretation [...] APPLICABLE FOR DIALYSIS PATIEN TS. HEPATIC FUNCTION [id number] 06:22:00 Test Item Value Reference Range Interpretation [...] code = 11 U/L 6-55 347) POCT-GLUCOSE [id number] 22:19:00 Test Item Value Reference Range Interpretation Comments POC-GLUCOSE METER 195 mg/dL 70-110 H TESTED AT [facility] 6720 (BEAKER) (test code = BRENDA Satniago [place] 1538) [address] BODY FLUID CELL COUNT WITH [id number] 21:04:00 Test Item Value Reference Range Interpretation [...] Tube (test code = 2873) PH, BODY [id number] 19:43:00 Test Item Value Reference Range Interpretation Comments PH, BODY FLUID (BEAKER) (test code = 7.80 1530) LACTATE DEHYDROGENASE (LDH), BODY [id number] 19:41:00 Test Item Value Reference Range Interpretation [...] validated for this type of specimen.PROTEIN, BODY [id number] 19:31:00 Test Item Value Reference Range Interpretation Comments PROTEIN FLUID (BEAKER) 2.5 g/dL Light's criteria identifies (test code = 579) effusions if one or more are pre Absence of reference range indicates that normals have not been defined.Assay performance has not been validated for this type of specimen.RAD, CHEST, 1 VIEW, NON [id number] 19:14:00Reason for exam:->post right sided thoracentesisShould this [...] lesion cannot be excluded. Signed: Yann Doe MDReport Verified Date/Time: 09/04/2018 19:14:07 Reading Location: [address] Reading Room HEPATIC FUNCTION [id number] 13:48:00 Test Item Value Reference Range Interpretation [...] code = 12 U/L 6-55 347) POCT-GLUCOSE [id number] 12:07:00 Test Item Value Reference Range Interpretation Comments POC-GLUCOSE METER 171 mg/dL 70-110 H TESTED AT [facility] 6720 (BEAKER) (test code = BRENDA Santiago [place] 1538) [address] RAD, CHEST, 1 VIEW, NON [id number] 09:39:00Reason for exam:->assess lung volumesShould this be [...] MDReport Verified Date/Time: 09/04/2018 09:39:09 Reading Location: [facility] Radiology Reading Room POCT-GLUCOSE [id number] 09:09:00 Test Item Value Reference Range Interpretation Comments POC-GLUCOSE METER 211 mg/dL 70-110 H TESTED AT [facility] 6720 (BEAKER) (test code = [place] 1538) [address] TACROLIMUS [id number] 09:06:00 Test Item Value Reference Range Interpretation Comments TACROLIMUS BLOOD (BEAKER) (test 13.6 ng/mL 10.0-20.0 code = 657) BASIC METABOLIC [id number] 06:49:00 Test Item Value Reference Range Interpretation [...] NOT APPLICABLE FOR DIALYSIS PATIEN TS. PROTHROMBIN [id number] 06:23:00 Test Item Value Reference Range Interpretation [...] mechanical heart valves.CBC W/PLT COUNT & AUTO [id number] 06:16:00 Test Item Value Reference Range Interpretation [...] PERCENT (BEAKER) (test code = 2801) POCT-GLUCOSE [id number] 01:17:00 Test Item Value Reference Range Interpretation Comments POC-GLUCOSE METER 172 mg/dL 70-110 H TESTED AT [facility] 6720 ([facility] (test code = BRENDA Santiago [place] 1538) [address] URINE IMMUNOFIXATION, [id number] 16:27:00 Test Item Value Reference Range Interpretation Comments PROTEIN, URINE 240 mg/dL 0-14 H ([facility] (test code = 1569) ALBUMIN URINE ELP 59.2 % (AKER) (test code = 1018) GAMMA GLOBULIN 40.8 % URINE (AKER) (test code = 1015) URINE TOMA ID-402 Urine immunofixation ([facility] (test code electrophoresis reveals no = 2602) monoclonal proteins or free light chains. [id number] Ian Morin M.D. 2 ([facility] (test (electonic signature) code = 2603) IMMUNOFIXATION ELECTROPHORESIS (TOMA)2018-08-27 16:09:00 Test Item Value Reference Range Interpretation Comments IMMUNOGLOBULIN G (IGG) 1790 mg/dL 540-1,822 (AKER) (test code = 427) IMMUNOGLOBULIN A (IGA) 282 mg/dL 63-484 (BEAKER) (test code = 639) IMMUNOGLOBULIN M (IGM) 52 mg/dL 22-293 (BEAKER) (test code = 638) SERUM TOMA ID ([facility] No monoclonal (test code = 1814) proteins detected. Polyclonal distribution of immunoglobulins. [id number] Ian Morin M.D. ([facility] (test code = (electonic signature) 8496) BODY FLUID CULTURE + GRAM [id number] 15:47:00 Test Item Value Reference Range Interpretation Comments CULTURE ([facility] (test code No growth = 1095) GRAM STAIN RESULT (BEAKER) <1+ WBCs (test code = 1123) GRAM STAIN RESULT (AKER) No organisms seen (test code = 04347) POCT-GLUCOSE [id number] 12:14:00 Test Item Value Reference Range Interpretation Comments POC-GLUCOSE METER 210 mg/dL 70-110 H TESTED AT [facility] 6720 (BEAKER) (test code = BRENDA Santiago [place] 1538) [address] [id number] 12:01:00 Test Item Value Reference Range Interpretation Comments POTASSIUM (BEAKER) (test code = 5.2 meq/L 3.5-5.1 H 379) TACROLIMUS [id number] 11:52:00 Test Item Value Reference Range Interpretation Comments TACROLIMUS BLOOD (BEAKER) (test 6.4 ng/mL 10.0-20.0 L code = 657) Please draw 30 min prior to AM dose. Thanks!POCT-GLUCOSE [id number] 08:13:00 Test Item Value Reference Range Interpretation Comments POC-GLUCOSE METER 143 mg/dL 70-110 H TESTED AT [facility] 6720 (BEAKER) (test code = BRNEDA Santiago [place] 1538) [address] CREATININE [id number] 07:26:00 Test Item Value Reference Range Interpretation Comments CREATININE CLEARANCE (BEAKER) 10.9 mL/min 70.0-140.0 L (test code = 357) VOLUME, TOTAL (BEAKER) (test code 800 ml = 1457) CREATININE URINE (BEAKER) (test 76.9 mg/dL code = 375) PATIENT HEIGHT (CM) (BEAKER) 167.0 cm (test code = 2799) PATIENT WEIGHT (KG) (BEAKER) 95.300 kg (test code = 2800) PROTEIN, 24 HOUR [id number] 07:26:00 Test Item Value Reference Range Interpretation Comments PROTEIN, 24HR URINE (BEAKER) 2000 mg/24hr 0-300 H (test code = 1570) VOLUME, TOTAL (BEAKER) (test 800 ml code = 1457) PROTEIN, URINE (BEAKER) (test 250 mg/dL 0-14 H code = 1569) COMPREHENSIVE METABOLIC [id number] 07:17:00 Test Item Value Reference Range Interpretation [...] MEAN CORPUSCULAR HEMOGLOBIN 25.0 pg 25.6-32.2 L (BEAKER) (test code = 751) MEAN CORPUSCULAR HEMOGLOBIN CONC 30.9 GM/DL 32.2-35.5 L ([facility] (test code = 752) RED CELL DISTRIBUTION WIDTH 14.2 % 11.7-14.4 (AKER) (test code = 412) PLATELET COUNT ([facility] (test 166 K/CU MM 150-450 code = 756) MEAN PLATELET VOLUME (AKER) 9.7 fL 9.4-12.3 (test code = 754) NUCLEATED RED BLOOD CELLS 0 /100 WBC 0-0 (AKER) (test code = 413) ANTI-NUCLEAR ANTIBODY (WOODY)2018-08-23 06:01:00 Test Item Value Reference Range Interpretation Comments ANTI-NUCLEAR ANTIBODY (WOODY) ([facility] Negative Negative (test code = 418) Test performed by IFA method.Test performed by IFA method.POCT-GLUCOSE METER 2018-08-22 21:18:00 Test Item Value Reference Range Interpretation Comments POC-GLUCOSE METER 231 mg/dL 70-110 H TESTED AT [facility] 6720 ([facility] (test code = [place]DA [place] 1538) [address] URINE PROTEIN ELECTROPHORESIS, [id number] 18:38:00 Test Item Value Reference Range Interpretation Comments PROTEIN, URINE 240 mg/dL 0-14 H ([facility])) (test code = 1569) ALBUMIN URINE ELP 59.2 % (AKER) (test code = 1018) GAMMA GLOBULIN URINE 40.8 % ([facility])) (test code = 1015) UPEP, ID-438 Urine protein study ([facility])) (test code consistent with = 2604) glomerular dysfunction. There is a possible band present within the gamma region. Refer to serum immunofixation electrophoresis. [id number] Karie Butcher MD ([facility])) (test code (electronic signature) = 2605) [id number] 17:59:00Medical Cytology Report Case: [id number] Authorizing Provider: Celestino Bialey MD Collected: 08/21/2018 1557 Ordering Location: [address] Received: 08/22/2018 5819 Pathologist: Mariano Cutler MD Specimen: Pleural, Right RIGHT PLEURAL FLUID (CYTOSPINS): - NO MALIGNANT CELLS IDENTIFIED (SEE COMMENT) - REACTIVE MESOTHELIAL CELLS WITH CHRONIC INFLAMMATION Signing Pathologist Direct Phone Line: [phone] signed by Mariano Cutler MD on 08/22/2018 at 5:59 PMOnly a small amount of fluid was received for cytology evaluation. If clinically discordant, repeat thoracentesis with larger amount of fluid sent for cytologyevaluation may be considered. 167[address]Ojiof pleural effusion, history of hepatocellular cancerRIGHT PLEURAL FLUID5 mls cuca; 4 cytospinsCollected: [id number]: [id number]can [facility], Department of Pathology, [address] [place] [address], [facility], Department of Pathology, [address] [place] [address], [facility]mHo[facility], Department of Pathology, [address] [place] [address], VANY-GLUCOSE [id number] 17:07:00 Test Item Value Reference Range Interpretation Comments POC-GLUCOSE METER 174 mg/dL 70-110 H TESTED AT [place] [address] (BEAKER) (test code = [facility] 1538) [address] PROTEIN ELECTROPHORESIS, [id number] 15:51:00 Test Item Value Reference Range Interpretation [...] region. Please refer to serum immunofixation electrophoresis. [id number] Karie Butcher MD (BEAKER) (test code (electronic signature) = 2616) PROTEIN TOTAL SERUM, 6.2 gm/dL 6.0-8.3 SPEP ([facility]) (test code = 2660) RHEUMATOID FACTOR AB, REFLEX TO [id number] 12:56:00 Test Item Value Reference Range Interpretation Comments RHEUMATOID FACTOR (BEAKER) (test Negative code = 573) [id number] 12:47:00 Test Item Value Reference Range Interpretation Comments RPR SCREEN ([facility] (test code = Nonreactive Nonreactive 420) POCT-GLUCOSE [id number] 12:30:00 Test Item Value Reference Range Interpretation Comments POC-GLUCOSE METER 200 mg/dL 70-110 H TESTED AT [facility] 67 ([facility] (test code = BRENDA Santiago [place] 1538) [address] OSMOLALITY, [id number] 11:29:00 Test Item Value Reference Range Interpretation Comments OSMOLALITY URINE (BEAKER) (test 300 mOsm/kg 40-1,400 code = 614) OSMOLALITY, [id number] 10:58:00 Test Item Value Reference Range Interpretation Comments OSMOLALITY, SERUM (BEAKER) (test 307 mOsm/kg 280-303 H code = 615) TACROLIMUS [id number] 09:13:00 Test Item Value Reference Range Interpretation Comments TACROLIMUS BLOOD ([facility] (test 8.5 ng/mL 10.0-20.0 L code = 657) Please draw 30 min prior to AM dose. Thanks!POCT-GLUCOSE [id number] 09:01:00 Test Item Value Reference Range Interpretation Comments POC-GLUCOSE METER 156 mg/dL 70-110 H TESTED AT [place] [address] ([facility] (test code = [facility] 1538) [address] HEPATITIS PANEL, [id number] 07:30:00 Test Item Value Reference Range Interpretation Comments HEPATITIS A IGM ANTIBODY (BEAKER) Nonreactive Nonreactive (test code = 498) HEPATITIS B CORE IGM ANTIBODY Nonreactive Nonreactive (BEAKER) (test code = 645) HEPATITIS C ANTIBODY ([facility] Reactive Nonreactive A (test code = 367) HEPATITIS B SURFACE ANTIGEN (2) Nonreactive Nonreactive ([facility])) (test code = 2585) COMPREHENSIVE METABOLIC [id number] 06:31:00 Test Item Value Reference Range Interpretation [...] CORPUSCULAR HEMOGLOBIN CONC 30.6 GM/DL 32.2-35.5 L (AKER) (test code = 752) RED CELL DISTRIBUTION WIDTH 14.2 % 11.7-14.4 (AKER) (test code = 412) PLATELET COUNT ([facility] (test 161 K/CU MM 150-450 code = 756) MEAN PLATELET VOLUME (AKER) 9.5 fL 9.4-12.3 (test code = 754) NUCLEATED RED BLOOD CELLS 0 /100 WBC 0-0 (AKER) (test code = 413) HEPATITIS B CORE ANTIBODY, [id number] 22:36:00 Test Item Value Reference Range Interpretation Comments HEPATITIS B CORE TOTAL ANTIBODY Nonreactive Nonreactive ([facility] (test code = 497) HIV-1 ANTIGEN WITH HIV-1/2 [id number] 22:36:00 Test Item Value Reference Range Interpretation Comments HIV-1 ANTIGEN WITH HIV 1\T\2 Nonreactive Nonreactive ANTIBODY (2) ([facility] (test code = 2586) COMPLEMENT COMPONENT [id number] 22:13:00 Test Item Value Reference Range Interpretation Comments C3 COMPLEMENT (AKER) (test code = 81 mg/dL 82-193 L 393) COMPLEMENT COMPONENT [id number] 22:13:00 Test Item Value Reference Range Interpretation Comments C4 COMPLEMENT ([facility] (test code = 21 mg/dL 15-57 394) [id number] 22:11:00 Test Item Value Reference Range Interpretation Comments CREATININE (AKER) 3.45 mg/dL 0.57-1.25 H (test code = 358) EGFR ([facility] (test 13 mL/min/1.73 ESTIMA RYAN GFR IS code = 1092) sq m NOT ACCURATE CREATININE CLEARANCE IN PREDICTING GLOMERULAR FILTRATION RATE . ESTIMATED GFR I S NOT APPLICABLE FOR DIALYSIS PATIEN TS. POCT-GLUCOSE [id number] 21:35:00 Test Item Value Reference Range Interpretation Comments POC-GLUCOSE METER 244 mg/dL 70-110 H TESTED AT [facility] 6720 ([facility] (test code = [place] 153) [address] EOSINOPHIL SMEAR, [id number] 20:09:00 Test Item Value Reference Range Interpretation Comments EOSINOPHIL SMEAR, URINE (BEAKER) No EOS seen No EOS seen (test code = 3421) Many bacteria seen on stained smears.PROTEIN, RANDOM [id number] 19:59:00 Test Item Value Reference Range Interpretation Comments PROTEIN, URINE (BEAKER) (test code 265 mg/dL 0-14 H = 1569) PTH, [id number] 19:43:00 Test Item Value Reference Range Interpretation Comments PARATHYROID HORMONE INTACT 330.9 pg/mL 8.5-72.5 H (BEAKER) (test code = 577) URIC [id number] 19:36:00 Test Item Value Reference Range Interpretation Comments URIC ACID (BEAKER) (test code = 7.6 mg/dL 2.6-7.2 H 773) CHLORIDE, RANDOM [id number] 19:36:00 Test Item Value Reference Range Interpretation Comments CHLORIDE URINE (BEAKER) (test code = 29 meq/L 682) Reference Range: No NormalsCREATININE, RANDOM [id number] 19:36:00 Test Item Value Reference Range Interpretation Comments CREATININE URINE (BEAKER) (test 84.6 mg/dL code = 375) Reference Range: No NormalsPOTASSIUM, RANDOM [id number] 19:36:00 Test Item Value Reference Range Interpretation Comments POTASSIUM URINE (BEAKER) (test 14.7 meq/L code = 195) Reference Range: No NormalsSODIUM, RANDOM [id number] 19:36:00 Test Item Value Reference Range Interpretation Comments SODIUM URINE (BEAKER) (test code = 48 meq/L 243) Reference Range: No NormalsBODY FLUID CELL COUNT WITH [id number] 18:20:00 Test Item Value Reference Range Interpretation [...] code = 2873) LACTATE DEHYDROGENASE (LDH), BODY [id number] 17:26:00 Test Item Value Reference Range Interpretation [...] METER 148 mg/dL 70-110 H TESTED AT [facility] 6720 (BEAKER) (test code = [place] 1538) [address] RAD, CHEST, 1 VIEW, NON [id number] 16:17:00Reason for exam:->s/p right thoracentesisShould this be [...] in the spine. Signed: Ilia Rodriguezeport Verified Date/Time: 08/21/2018 16:17:23 Reading Location: [facility] Radiology Reading Room -GLUCOSE [id number] 12:51:00 Test Item Value Reference Range Interpretation Comments POC-GLUCOSE METER 133 mg/dL 70-110 H TESTED AT [place] [address] ([facility] (test code = [facility] 1538) [address] TACROLIMUS [id number] 10:14:00 Test Item Value Reference Range Interpretation Comments TACROLIMUS BLOOD ([facility])) (test 7.6 ng/mL 10.0-20.0 L code = 657) Please draw 30 min prior to AM dose. Thanks!POCT-GLUCOSE [id number] 09:34:00 Test Item Value Reference Range Interpretation Comments POC-GLUCOSE METER 108 mg/dL 70-110 TESTED AT [place] [address] ([facility])) (test code = [facility] 1538) [address] POCT-GLUCOSE [id number] 08:41:00 Test Item Value Reference Range Interpretation Comments POC-GLUCOSE METER 45 mg/dL 70-110 L TESTED AT [place] [address] ([facility])) (test code = [facility] [address] 1538) POCT-GLUCOSE [id number] 08:22:00 Test Item Value Reference Range Interpretation Comments POC-GLUCOSE METER 37 mg/dL 70-110 LL TESTED AT [place] [address] ([facility])) (test code = [facility] [address] 1538) COMPREHENSIVE METABOLIC [id number] 06:29:00 Test Item Value Reference Range Interpretation [...] S NOT APPLICABLE FOR DIALYSIS PATIEN TS. [id number] 06:18:00 Test Item Value Reference Range Interpretation [...] 0-0 (BEAKER) (test code = 413) POCT-GLUCOSE [id number] 21:32:00 Test Item Value Reference Range Interpretation Comments POC-GLUCOSE METER 197 mg/dL 70-110 H TESTED AT [facility] 6720 (BEAKER) (test code = BRENDA [place] 1538) [address] PH, BODY [id number] 19:33:00 Test Item Value Reference Range Interpretation Comments PH, BODY FLUID (BEAKER) (test code = 7.75 1530) ALBUMIN, BODY [id number] 19:29:00 Test Item Value Reference Range Interpretation Comments ALBUMIN FLUID (BEAKER) (test code = 1.5 gm/dL 501) Reference Range: No Normals Assay performance has not been validated for this type of specimen.BODY FLUID CELL COUNT WITH [id number] 19:26:00 Test Item Value Reference Range Interpretation [...] code = 2873) LACTATE DEHYDROGENASE (LDH), BODY [id number] 19:22:00 Test Item Value Reference Range Interpretation [...] validated for this type of specimen.TRIGLYCERIDES, BODY [id number] 19:22:00 Test Item Value Reference Range Interpretation Comments TRIGLYCERIDES FLUID (BEAKER) (test 32 mg/dL code = 539) Reference Range: No Normals Assay performance has not been validated for this type of specimen.RAD, CHEST, 1 VIEW, NON [id number] 19:16:00Reason for exam:->left thoracentesisShould this be performed at the bedside?->Yes FINAL REPORT Chest, 1 view Clinical history: left thoracentesis Comparison: 08/18/2018 Discussion: Status post left thoracentesis without pneumothorax. Interval decrease in left pleural effusion. Again seen is a layering right pleural effusion. The cardiac silhouette is enlargedwith perihilar pulmonary edema. No acute osseous abnormality is seen. Signed: Bud Campoverde MDReport Verified Date/Time: 08/20/2018 19:16:27 Reading Location: [address] Ortho Consult Reading Room U/S, [id number] 18:21:00Laterality?- >LeftReason for exam:->pleural effusionFINAL REPORT PROCEDURE: Ultrasound-guided thoracentesis INDICATION: 63-year-old woman with left pleural effusion. DESCRIPTION: After obtaining informed written consent, ultrasound scan showed pleural effusion on the left. The overlying skin was prepped and draped in the usual, sterile fashion and local 2% lidocaine anesthesia was administered. A 4 Sudanese catheter was advanced into the pleural cavity and 1200 cc of serous fluid was removed. The catheter was removed without immediate complication. Samples were sent for analysis. IMPRESSION:Uncomplicated ultrasound-guided left thoracentesis with 1200 cc fluid removed. Signed: Likhari, Gauruv MDReport Verified Date/Time: 08/20/2018 18:21:53 Reading Location: [facility] P006J Ultrasound Reading Room POCT-GLUCOSE [id number] 11:46:00 Test Item Value Reference Range Interpretation Comments POC-GLUCOSE METER 173 mg/dL 70-110 H TESTED AT [facility] 67 ([facility])) (test code = [place] 1538) [address] [id number] 10:26:00 Test Item Value Reference Range Interpretation Comments PROTIME (BEAKER) (test code = 14.1 seconds 11.9-14.2 759) INR ([facility]) (test code = 370) 1.2 <=5.9 PARTIAL THROMBOPLASTIN TIME 39.4 seconds 22.5-36.0 H (BEAKER) (test code = 760) Effective 08/20/2018: PT Reference Range ChangeNew: 11.9-14.2 Previous: 11.7- 14.7RECOMMENDED COUMADIN/WARFARIN INR THERAPY RANGESSTANDARD DOSE: 2.0-3.0 Includes: PROPHYLAXIS for venous thrombosis, systemic embolization; TREATMENT for venous thrombosis and/or pulmonary embolus.HIGH RISK: Target INR is2.5-3.5 for patients wiht mechanical heart valves.TACROLIMUS [id number] 10:20:00 Test Item Value Reference Range Interpretation Comments TACROLIMUS BLOOD ([facility] (test 7.2 ng/mL 10.0-20.0 L code = 657) Please draw 30 min prior to AM dose. Thanks!POCT-GLUCOSE [id number] 08:05:00 Test Item Value Reference Range Interpretation Comments POC-GLUCOSE METER 64 mg/dL 70-110 L TESTED AT [facility] 6720 ([facility] (test code = [place] [address] 1538) CBC W/PLT COUNT & AUTO [id number] 07:03:00 Test Item Value Reference Range Interpretation [...] (BEAKER) (test code = 2801) BASIC METABOLIC [id number] 06:57:00 Test Item Value Reference Range Interpretation [...] S NOT APPLICABLE FOR DIALYSIS PATIEN TS. [id number] 06:44:00 Test Item Value Reference Range Interpretation Comments MAGNESIUM (BEAKER) (test code = 2.5 mg/dL 1.6-2.6 627) POCT-GLUCOSE [id number] 22:17:00 Test Item Value Reference Range Interpretation Comments POC-GLUCOSE METER 131 mg/dL 70-110 H TESTED AT [facility] 6720 ([facility])) (test code = BRENDA [place] [facility] 1538) [address] POCT-GLUCOSE [id number] 16:56:00 Test Item Value Reference Range Interpretation Comments POC-GLUCOSE METER 124 mg/dL 70-110 H TESTED AT [facility] 67 ([facility])) (test code = BRENDA [place] [facility] 1538) [address] POCT-GLUCOSE [id number] 13:01:00 Test Item Value Reference Range Interpretation Comments POC-GLUCOSE METER 101 mg/dL 70-110 TESTED AT [facility] 6720 ([facility] (test [facility] = [facility] 1538) [address] TACROLIMUS [id number] 08:59:00 Test Item Value Reference Range Interpretation Comments TACROLIMUS BLOOD (BEAKER) (test 5.4 ng/mL 10.0-20.0 L code = 657) Please draw 30 min prior to AM dose. Thanks!POCT-GLUCOSE [id number] 08:57:00 Test Item Value Reference Range Interpretation Comments POC-GLUCOSE METER 125 mg/dL 70-110 H TESTED AT [facility] 6720 (BEAKER) (test code = BR[place] 1538) [address] POCT-GLUCOSE [id number] 08:30:00 Test Item Value Reference Range Interpretation Comments POC-GLUCOSE METER 48 mg/dL 70-110 L TESTED AT [facility] 6720 (BEAKER) (test code = [place] [address] 1538) COMPREHENSIVE METABOLIC [id number] 06:46:00 Test Item Value Reference Range Interpretation [...] (BEAKER) (test code = 413) U/S, ABDOMINAL, [id number] 03:23:00Abdomen limited area? Add comment if clarification [...] Aminata Fuentes Verified Date/Time:08/19/2018 03:23:10 Reading Location: [address] Transitional Reading Room POCT-GLUCOSE [id number] 22:31:00 Test Item Value Reference Range Interpretation Comments POC-GLUCOSE METER 123 mg/dL 70-110 H TESTED AT [place] [address] ([facility])) (test code = BRENDA [place] [facility] 1538) [address] POCT-GLUCOSE [id number] 18:04:00 Test Item Value Reference Range Interpretation Comments POC-GLUCOSE METER 138 mg/dL 70-110 H TESTED AT [place] [address] ([facility])) (test code = BRENDA Santiago [facility] 1538) [address] RAD, CHEST, 2 [id number] 13:39:00Reason for exam:->bilateral effusions, dyspneaFINAL REPORT INDICATION: [...] Verified Date/Time: 08/18/2018 13:39:03 Iona morales Location: [address] Neuro Reading Room POCT-GLUCOSE [id number] 12:06:00 Test Item Value Reference Range Interpretation Comments POC-GLUCOSE METER 116 mg/dL 70-110 H TESTED AT [place] [id number] ([facility]) (test code = BRENDA Santiago [place] 1538) [address] TACROLIMUS [id number] 09:28:00 Test Item Value Reference Range Interpretation Comments TACROLIMUS BLOOD (BEAKER) (test 5.1 ng/mL 10.0-20.0 L code = 657) Please draw 30 min prior to AM dose. Thanks!HEMOGLOBIN [id number] 08:28:00 Test Item Value Reference Range Interpretation Comments HEMOGLOBIN A1C (BEAKER) (test code = 5.5 % 4.3-6.1 368) POCT-GLUCOSE [id number] 08:07:00 Test Item Value Reference Range Interpretation Comments POC-GLUCOSE METER 111 mg/dL 70-110 H TESTED AT [place] [address] ([facility]) (test code = BRENDA [place] [facility] 1538) [address] COMPREHENSIVE METABOLIC [id number] 07:18:00 Test Item Value Reference Range Interpretation [...] 0-0 (BEAKER) (test code = 413) POCT-GLUCOSE [id number] 17:32:00 Test Item Value Reference Range Interpretation Comments POC-GLUCOSE METER 91 mg/dL 70-110 TESTED AT [facility] 6720 ([facility])) (test code = [place] [address] 1538) [address], CHEST, WITHOUT [id number] 16:51:00FINAL REPORT INDICATION: Shortness of breath. COMPARISON:None. [...] MDReport Verified Date/Time: 08/17/2018 16:51:05 Reading Location: [place] [address]Y CT Body Reading Room -GLUCOSE [id number] 16:23:00 Test Item Value Reference Range Interpretation Comments POC-GLUCOSE METER 46 mg/dL 70-110 L TESTED AT [facility] 6720 (BEAKER) (test code = BRENDA Santiago [facility] [address] 1538) B-TYPE NATRIURETIC FACTOR (BNP)2018-08-17 15:08:00 Test Item Value Reference Range Interpretation Comments B-TYPE NATRIURETIC PEPTIDE (BEAKER) 549 pg/mL 0-100 H (test code = 700) URINALYSIS WITH MICROSCOPIC IF [id number] 14:47:00 Test Item Value Reference Range Interpretation [...] 463) SOURCE(BEAKER) (test code = 2795) URINALYSIS [id number] 14:47:00 Test Item Value Reference Range Interpretation Comments RBC UA (BEAKER) (test code = 519) < /HPF WBC UA (BEAKER) (test code = 520) 1 /HPF SQUAMOUS EPITHELIAL (BEAKER) (test 1 /HPF code = 516) POCT-GLUCOSE [id number] 12:28:00 Test Item Value Reference Range Interpretation Comments POC-GLUCOSE METER 75 mg/dL 70-110 TESTED AT [place] [address] ([facility] (test code = [facility] [address]38) TACROLIMUS [id number] 09:04:00 Test Item Value Reference Range Interpretation Comments TACROLIMUS BLOOD (BEAKER) (test 6.2 ng/mL 10.0-20.0 L code = 657) POCT-GLUCOSE [id number] 08:53:00 Test Item Value Reference Range Interpretation Comments POC-GLUCOSE METER 87 mg/dL 70-110 TESTED AT [place] [address] ([facility])) (test code = [facility] [address] 1538) POCT-GLUCOSE [id number] 08:40:00 Test Item Value Reference Range Interpretation Comments POC-GLUCOSE METER 57 mg/dL 70-110 L TESTED AT [place] [address] ([facility])) (test code = [facility] [address] 1538) B-TYPE NATRIURETIC FACTOR (BNP)2018-08-17 06:16:00 Test Item Value Reference Range Interpretation Comments B-TYPE NATRIURETIC PEPTIDE (BEAKER) 513 pg/mL 0-100 H (test code = 700) COMPREHENSIVE METABOLIC [id number] 06:16:00 Test Item Value Reference Range Interpretation [...] PATIEN TS. CBC W/PLT COUNT & AUTO [id number] 05:51:00 Test Item Value Reference Range Interpretation [...] PERCENT (BEAKER) (test code = 2801) POCT-GLUCOSE [id number] 02:09:00 Test Item Value Reference Range Interpretation Comments POC-GLUCOSE METER 85 mg/dL 70-110 TESTED AT [facility] 6720 ([facility])) (test code = [facility] [address] 1538) HEPATITIS C PCR, [id number] 13:59:00 Test Item Value Reference Range Interpretation Comments HCV RESULT COMPONENT HCV RNA not detected HCV RNA not detected (BEAKER) (test code = 2699) This test uses a Real-Time Polymerase Chain Reaction (RT-PCR) methodology and was performed using LAZ Ampliprep/LAZ TaqMan HCV test kit version 2.0 ([employer]).Reportable range for this assay is 15 - 100,000,000 IU per mL (1.18 - 8.00 Log IU/mL).TACROLIMUS [id number] 13:46:00 Test Item Value Reference Range Interpretation Comments TACROLIMUS BLOOD (BEAKER) (test 9.6 ng/mL 10.0-20.0 L code = 657) ALPHA FETOPROTEIN (AFP), TUMOR [id number] 13:23:00 Test Item Value Reference Range Interpretation Comments ALPHA-FETOPROTEIN (BEAKER) (test code < ng/mL <10.0 = 1094) Effective 02/09/2014: Reference Range ChangeNew: <10.0 Previous: 0.0-8.0 [id number] 13:04:00 Test Item Value Reference Range Interpretation Comments PHOSPHORUS (BEAKER) (test code = 4.5 mg/dL 2.3-4.7 604) [id number] 13:04:00 Test Item Value Reference Range Interpretation Comments MAGNESIUM (BEAKER) (test code = 2.3 mg/dL 1.6-2.6 627) COMPREHENSIVE METABOLIC [id number] 13:04:00 Test Item Value Reference Range Interpretation [...] NOT APPLICABLE FOR DIALYSIS PATIEN TS. LIPID [id number] 13:04:00 Test Item Value Reference Range Interpretation [...] Borderline 130-159 High 160-189 Very High >=190BILIRUBIN, [id number] 13:04:00 Test Item Value Reference Range Interpretation Comments BILIRUBIN DIRECT (BEAKER) (test 0.2 mg/dL 0.1-0.5 code = 706) CBC W/PLT COUNT & AUTO [id number] 12:37:00 Test Item Value Reference Range Interpretation [...] L 0.00-0.20 (test code = 417) 0.00POCT-GLUCOSE [id number] 13:29:00 Test Item Value Reference Range Interpretation Comments POC-GLUCOSE METER 77 mg/dL 70-110 TESTED AT [place] [address] ([facility] (test code = [facility] [address] 1538) POCT-GLUCOSE [id number] 13:28:00 Test Item Value Reference Range Interpretation Comments POC-GLUCOSE METER 100 mg/dL 70-110 TESTED AT [place] [id number] ([facility])) (test code = [facility] 1538) [address] POCT-GLUCOSE [id number] 12:04:00 Test Item Value Reference Range Interpretation Comments POC-GLUCOSE METER 69 mg/dL 70-110 L TESTED AT [facility] 6720 ([facility])) (test code = [place] [address] 1538) CREATINE KINASE (CK), TOTAL AND [id number] 09:47:00 Test Item Value Reference Range Interpretation Comments CREATINE KINASE TOTAL (BEAKER) 38 U/L 29-200 (test code = 380) CREATINE KINASE-MB (BEAKER) (test 1.1 ng/mL 0.0-6.6 code = 750) CREATINE KINASE-MB INDEX (BEAKER) 2.9 % (test code = 395) Effective 02/09/2014: CK-MB Reference Range ChangeNew: 0.0-6.6 Previous: 0.0-4.9CK-MB Reference Range:<6.7 Normal6.7-10.0 Borderline>10.0 AbnormalTACROLIMUS [id number] 09:04:00 Test Item Value Reference Range Interpretation Comments TACROLIMUS BLOOD (BEAKER) (test 9.5 ng/mL 10.0-20.0 L code = 657) TROPONIN [id number] 08:43:00 Test Item Value Reference Range Interpretation Comments TROPONIN I (BEAKER) (test code = 0.01 ng/mL 0.00-0.03 397) [...] acute neurological disease, and persistent tachyarrhythmia.HEPATIC FUNCTION [id number] 05:43:00 Test Item Value Reference Range Interpretation Comments TOTAL PROTEIN (BEAKER) (test code = 6.0 gm/dL 6.0-8.3 770) ALBUMIN (BEAKER) (test code = 1145) 3.3 g/dL 3.5-5.0 L BILIRUBIN TOTAL (BEAKER) (test code 1.0 mg/dL 0.2-1.2 = 377) BILIRUBIN DIRECT (BEAKER) (test 0.3 mg/dL 0.1-0.5 code = 706) ALKALINE PHOSPHATASE (BEAKER) (test 87 U/L 40-150 code = 346) AST (SGOT) (BEAKER) (test code = 13 U/L 5-34 353) ALT (SGPT) (BEAKER) (test code = 10 U/L 6-55 347) BASIC METABOLIC [id number] 05:43:00 Test Item Value Reference Range Interpretation [...] PATIEN TS. CBC W/PLT COUNT & AUTO [id number] 05:33:00 Test Item Value Reference Range Interpretation [...] L 0.00-0.20 (test code = 417) 0.00TROPONIN [id number] 22:47:00 Test Item Value Reference Range Interpretation [...] acidosis, acute neurological disease, and persistent tachyarrhythmia.POCT-GLUCOSE [id number] 21:47:00 Test Item Value Reference Range Interpretation Comments POC-GLUCOSE METER 183 mg/dL 70-110 H TESTED AT [place] [address] ([facility] (test code = BRENDA Santiago [facility] 1538) [address] CREATINE KINASE (CK), TOTAL AND [id number] 16:27:00 Test Item Value Reference Range Interpretation Comments CREATINE KINASE TOTAL ([facility] 36 U/L 29-200 (test code = 380) CREATINE KINASE-MB ([facility])) (test 1.4 ng/mL 0.0-6.6 code = 750) CREATINE KINASE-MB INDEX ([facility])) 3.9 % (test code = 395) Effective 02/09/2014: CK-MB Reference Range ChangeNew: 0.0-6.6 Previous: 0.0-4.9CK-MB Reference Range:<6.7 Normal6.7-10.0 Borderline>10.0 AbnormalTROPONIN [id number] 16:27:00 Test Item Value Reference Range Interpretation Comments TROPONIN I ([facility] (test code = 397) < ng/mL 0.00-0.03 [...] acidosis, acute neurological disease, and persistent tachyarrhythmia.POCT-GLUCOSE [id number] 16:09:00 Test Item Value Reference Range Interpretation Comments POC-GLUCOSE METER 95 mg/dL 70-110 TESTED AT [place] [address] ([facility] (test code = BRENDA Santiago [facility] [address] 1538)
[2020-10-05 12:16] LABS: Absolute Lymphocytes (CBC) 0.7 K/uL (0.7-4.9); Basophils % 1.1 % (0-1.3); Hematocrit 35.6 % (36.0-45.0); MPV 7.2 fL (7.6-11.3); RBC Red Blood Cell Count 4.37 M/uL (3.86-4.86)
--- NOTE | 2020-10-05 12:26 | RAD REPORT ---
EXAM DESCRIPTION: CT - Abdomen Pelvis Wo Contrast - 10/05/2020 12:03 pm CLINICAL HISTORY: ABD PAIN COMPARISON: CT ABD PELVIS W CONTRAST dated 06/11/2013; Chest For Pe Angio dated 06/07/2020 TECHNIQUE: Axial [address] imaging of the abdomen and pelvis was performed without IV contrast. No IV contrast was given because of allergy, abnormal renal function, patient refusal or physician re quest. No oral contrast administered. All CT scans are performed using dose optimization technique as appropriate and may include automated exposure control or mA/KV adjustment according to patient size. FINDINGS: Patient has a small right-sided pleural effusion that has decreased in prominence since may CT chest. Large loculated pleural effusion at the left base has not changed. There is chronic atelectasis of the lingula left upper lobe and posteroinferior left lower lobe. No pericardial effus ion. Liver is prominent in size and shows slight nodularity of the capsule. No focal liver lesion identifi able on noncontrast imaging. No splenomegaly or focal splenic finding. No pancreatic or peripancreati c acute process. Gallbladder is absent. No abnormal biliary tree dilatation. Provided history indicat es liver transplant patient. No hydronephrosis or suspicious renal mass. No significant adrenal finding. Isodense renal masses an d pyelonephritis cannot be excluded in the absence of IV contrast. Urinary bladder is mostly contract ed. Small amount of air is present within the lumen presumably from a catheterization procedure. Atro phic uterus is present with calcified fibroid. Ovaries are atrophic and obscured by the adjacent isod ense bowel. No gastric dilatation or gastric wall thickening. No dilated small bowel loops. No appendicitis findi ngs are seen. Moderate stool volume is seen in the colon. Patient has prominent sigmoid diverticulosi s without diverticulitis finding. No free air or pneumatosis. Trace amount of free fluid is seen in the dependent portion of the pelv is. No mass or bulky lymphadenopathy. Patient has 2 small ventral hernias in the uppermost abdomen an d in the periumbilical region. There is only fat in the small hernias and no congestion or edema. No suspicious bony findings. IMPRESSION: No appendicitis or other finding to explain the right lower quadrant pain pattern. Trace amount of free fluid in the dependent portion of the pelvis with no other peritoneal or retrope ritoneal significant finding. Large loculated left base pleural effusion with chronic lower lobe and lingula atelectasis. Smaller r ight pleural effusion is present and has decreased in size since May. Full assessment is limited is the absence of IV contrast.
[2020-10-05] MEDS ORDERED: ONDANSETRON 4 MG/2 ML VIAL ONE (12:32)
[2020-10-05] MEDS ORDERED: MORPHINE 4 MG/ML SYR ONE (12:32)
[2020-10-05 12:39] LABS: Albumin 2.9 g/dL (3.4-5.0); Bilirubin Direct 0.3 mg/dL (0-0.2); Bilirubin Total 0.9 mg/dL (0.2-1.0); Potassium 3.9 mmol/L (3.5-5.1); Protein, Total 7.8 g/dL (6.4-8.2)
--- NOTE | 2020-10-05 14:16 | ER ---
Nurse's Notes [facility] Name: Lisa Ko Age: 65 yrs Sex: Female : 1955 Arrival Date: 10/05/2020 Time: 10:37 Bed 15 Private MD: Will Tejeda E Diagnosis: Abdominal tenderness-RLQ Presentation: 10/05 10:56 Chief complaint: Patient states: RLQ pain and nausea x4 days, denies diarrhea, denies jl7 fever. Coronavirus screen: Client denies travel out of the [place] in the last 14 days. At this time, the client does not indicate any symptoms associated with coronavirus-19. Ebola Screen: No symptoms or risks identified at this time. Initial Sepsis Screen: Does the patient meet any 2 criteria? No. Patient's initial sepsis screen is negative. Does the patient have a suspected source of infection? No. Patient's initial sepsis screen is negative. Risk Assessment: Do you want to hurt yourself or someone else? Patient reports no desire to harm self or others. Onset of symptoms was October 02, 2020. 10:56 Method Of Arrival: Wheelchair jl7 10:56 Acuity: VANDA 3 jl7 Triage Assessment: 10:57 General: Appears in no apparent distress. uncomfortable, Behavior is calm, cooperative, jl7 appropriate for age. Pain: Complains of pain in right lower quadrant. GI: Reports lower abdominal pain, nausea, Patient currently denies diarrhea, vomiting. Historical: - Allergies: 10:57 Codeine; jl7 10:57 Levaquin (rash); jl7 - PMHx: 10:57 Diabetes - IDDM; HD; Hypertension; liver cancer; liver transplant; neuropathy; TIA; jl7 dialysis-M/W/F; - Immunization history:: Adult Immunizations up to date, Client reports receiving the 2nd dose of the Covid vaccine. - Social history:: Smoking status: Patient reports the use of cigarette tobacco products. Screenin:10 Abuse screen: Denies threats or abuse. Nutritional screening: No deficits noted. ap3 Tuberculosis screening: No symptoms or risk factors identified. Fall Risk No fall in past 12 months (0 pts). Secondary diagnosis (15 points) impaired mobility, No IV (0 pts). Ambulatory Aid- Crutches/Cane/Walker (15 pts). Gait- Weak (10 pts.). Mental Status- Oriented to own ability (0 pts). Total Guerra Fall Scale indicates Low Risk Score (25-44 pts). Fall prevention measures have been instituted. Side Rails Up X 2 Placed close to Nursing Station Frequent Obs/Assesments occuring Family Present and informed to notify staff if they need to leave bedside As available Patient and Family Educated on Fall Prevention Program and strategies. Assessment: 11:00 General: Appears in no apparent distress. uncomfortable, Behavior is calm, cooperative, ap3 appropriate for age. Pain: Complains of pain in right lower quadrant Pain does not radiate. Pain currently is 7 out of 10 on a pain scale. Quality of pain is described as throbbing, Pain began gradually, 2-3 days ago. Neuro: Level of Consciousness is awake, alert, obeys commands, Oriented to person, place, time, situation, Appropriate for age Moves all extremities. Gait is unsteady, Speech is normal. Cardiovascular: Denies chest pain, shortness of breath. Respiratory: Airway is patent Respiratory effort is even, unlabored, Respiratory pattern is regular, symmetrical. GI: Bowel sounds present X 4 quads. Abd is soft Abd is non tender in right upper quadrant, left upper quadrant and left lower quadrant Abdomen is tender to palpation in right lower quadrant Reports nausea, Patient currently denies constipation, diarrhea, vomiting. : No signs and/or symptoms were reported regarding the genitourinary system. EENT: No signs and/or symptoms were reported regarding the EENT system. Derm: No signs and/or symptoms reported regarding the dermatologic system. 12:39 Reassessment: Patient and/or family updated on plan of care and expected duration. Pain ap3 level reassessed. Patient is alert, oriented x 3, equal unlabored respirations, skin warm/dry/pink. 13:47 Reassessment: Patient and/or family updated on plan of care and expected duration. Pain ap3 level reassessed. Patient is alert, oriented x 3, equal unlabored respirations, skin warm/dry/pink. Vital Signs: 10:56 BP 148 / 66; Pulse 76; Resp 19; Temp 97.9; Pulse Ox 96% ; Weight 86.18 kg; Height 5 ft. jl7 6 in. (167.64 cm); Pain 8/10; 11:28 BP 127 / 74 LA Supine (auto/reg); Pulse 74; Resp 17; Pulse Ox 94% on R/A; Pain 7/10; ap3 12:39 BP 155 / 69; Pulse 74; Resp 19; Pulse Ox 93% on R/A; ap3 13:32 BP 178 / 80; Pulse 73; Resp 17; Pulse Ox 97% on R/A; ap3 14:49 BP 153 / 77; Pulse 56; Resp 19; Pulse Ox 94% on R/A; Pain 3/10; ap3 10:56 Body Mass Index 30.67 (86.18 kg, 167.64 cm) jl7 ED Course: 10:37 Patient arrived in ED. am2 10:37 Will Tejeda MD is Private Physician. am2 10:39 Luis Mai MD is Attending Physician. kdr 10:57 Triage completed. jl7 10:57 Arm band placed on right wrist. jl7 11:00 Madina Mccullough, JACQUELYN is Primary Nurse. ap3 11:11 Patient has correct armband on for positive identification. Bed in low position. Call ap3 light in reach. Side rails up X 1. Adult w/ patient. Pulse ox on. NIBP on. Door closed. Noise minimized. 11:30 Inserted saline lock: 20 gauge in right antecubital area, using aseptic technique. ap3 Blood collected. 11:40 ED physician to see patient. ap3 12:03 Abdomen In Process Unspecified. EDMS 14:15 Will Tejeda MD is Referral Physician. kdr 14:49 No provider procedures requiring assistance completed. IV discontinued, intact, ap3 bleeding controlled, No redness/swelling at site. Pressure dressing applied. Administered Medications: 12:16 Drug: Zofran (Ondansetron) 4 mg Route: IVP; Site: right antecubital; ap3 13:10 Follow up: Response: No adverse reaction; Nausea is decreased ap3 12:17 Drug: morphine 4 mg Route: IVP; Site: right antecubital; ap3 13:10 Follow up: Response: No adverse reaction; Pain is decreased ap3 Outcome: 14:15 Discharge ordered by . kdr 14:49 Discharged to home via wheelchair, with family. ap3 14:49 Condition: good 14:49 Discharge instructions given to patient, family, Instructed on discharge instructions, follow up and referral plans. medication usage, Demonstrated understanding of instructions, follow-up care, medications, Prescriptions given X 1. 14:50 Patient left the ED. ap3 Signatures: Dispatcher [employer] EDMS Luis Mai MD MD kdr Leal, Jahala RN RN jl7 Madina Snyder am2 Madina Mccullough RN RN ap3
--- NOTE | 2020-10-05 14:16 | EDPHYS ---
Physician Documentation [facility] Name: Lisa Ko Age: 65 yrs Sex: Female : 1955 Arrival Date: 10/05/2020 Time: 10:37 Bed 15 Private MD: Will Tejeda E ED Physician Luis Mai HPI: 10/05 15:16 This 65 yrs old Female presents to ER via Wheelchair with complaints of kdr Abdominal Pain - RLQ. 15:16 The patient presents with abdominal pain right lower quadrant. Onset: The kdr symptoms/episode began/occurred gradually, 4 day(s) ago. The symptoms do not radiate. Associated signs and symptoms: none. The symptoms are described as achy, sharp, waxing/waning. Modifying factors: The symptoms are alleviated by nothing, the symptoms are aggravated by touching the area. Severity of pain: At its worst the pain was mild moderate just prior to arrival, in the emergency department the pain has improved mildly. The patient has not experienced similar symptoms in the past. The patient has been recently seen by a physician: the patient's primary care provider. The patient had acute onset of RLQ pain on Saturday and has continued since. She denies any specific injury or other precipitating event. Historical: - Allergies: 10:57 Codeine; jl7 10:57 Levaquin (rash); jl7 - PMHx: 10:57 Diabetes - IDDM; HD; Hypertension; liver cancer; liver transplant; neuropathy; TIA; jl7 dialysis-M/W/F; - Immunization history:: Adult Immunizations up to date, Client reports receiving the 2nd dose of the Covid vaccine. - Social history:: Smoking status: Patient reports the use of cigarette tobacco products. ROS: 15:16 Constitutional: Negative for fever, chills, and weight loss, Eyes: Negative for injury, kdr pain, redness, and discharge, ENT: Negative for injury, pain, and discharge, Neck: Negative for injury, pain, and swelling, Cardiovascular: Negative for chest pain, palpitations, and edema, Respiratory: Negative for shortness of breath, cough, wheezing, and pleuritic chest pain, Back: Negative for injury and pain, : Negative for injury, bleeding, discharge, and swelling, MS/Extremity: Negative for injury and deformity, Skin: Negative for injury, rash, and discoloration, Neuro: Negative for headache, weakness, numbness, tingling, and seizure activity. Psych: Negative for depression, anxiety, suicide ideation, homicidal ideation, and hallucinations, Allergy/Immunology: Negative for hives, rash, and allergies, Endocrine: Negative for neck swelling, polydipsia, polyuria, polyphagia, and marked weight changes, Hematologic/Lymphatic: Negative for swollen nodes, abnormal bleeding, and unusual bruising. 15:16 Abdomen/GI: Positive for abdominal pain, nausea, of the right lower quadrant, Negative for constipation, abdominal distension, black/tarry stool, rectal pain, rectal bleeding, bowel incontinence. Exam: 15:16 Constitutional: This is a well developed, well nourished patient who is awake, alert, kdr and in no acute distress. Head/Face: Normocephalic, atraumatic. Eyes: Pupils equal round and reactive to light, extra-ocular motions intact. Lids and lashes normal. Conjunctiva and sclera are non-icteric and not injected. Cornea within normal limits. Periorbital areas with no swelling, redness, or edema. Neck: Trachea midline, no thyromegaly or masses palpated, and no cervical lymphadenopathy. Supple, full range of motion without nuchal rigidity, or vertebral point tenderness. No Meningismus. Chest/axilla: Normal chest wall appearance and motion. Nontender with no deformity. No lesions are appreciated. Cardiovascular: Regular rate and rhythm with a normal S1 and S2. No gallops, murmurs, or rubs. Normal PMI, no JVD. No pulse deficits. Respiratory: Lungs have equal breath sounds bilaterally, clear to auscultation and percussion. No rales, rhonchi or wheezes noted. No increased work of breathing, no retractions or nasal flaring. Back: No spinal tenderness. No costovertebral tenderness. Full range of motion. Skin: Warm, dry with normal turgor. Normal color with no rashes, no lesions, and no evidence of cellulitis. MS/ Extremity: Pulses equal, no cyanosis. Neurovascular intact. Full, normal range of motion. Neuro: Awake and alert, GCS 15, oriented to person, place, time, and situation. Cranial nerves II-XII grossly intact. Motor strength 5/5 in all extremities. Sensory grossly intact. Cerebellar exam normal. Normal gait. Psych: Awake, alert, with orientation to person, place and time. Behavior, mood, and affect are within normal limits. 15:16 Abdomen/GI: Inspection: abdomen appears normal, Bowel sounds: diminished, in all quadrants, Palpation: soft, mild abdominal tenderness, in the right lower quadrant, mass, is not appreciated, rebound tenderness, is not appreciated, voluntary guarding, is not appreciated, involuntary guarding, is not appreciated, no appreciated organomegaly. Vital Signs: 10:56 BP 148 / 66; Pulse 76; Resp 19; Temp 97.9; Pulse Ox 96% ; Weight 86.18 kg; Height 5 ft. jl7 6 in. (167.64 cm); Pain 8/10; 11:28 BP 127 / 74 LA Supine (auto/reg); Pulse 74; Resp 17; Pulse Ox 94% on R/A; Pain 7/10; ap3 12:39 BP 155 / 69; Pulse 74; Resp 19; Pulse Ox 93% on R/A; ap3 13:32 BP 178 / 80; Pulse 73; Resp 17; Pulse Ox 97% on R/A; ap3 14:49 BP 153 / 77; Pulse 56; Resp 19; Pulse Ox 94% on R/A; Pain 3/10; ap3 10:56 Body Mass Index 30.67 (86.18 kg, 167.64 cm) jl7 MDM: 14:15 Patient medically screened. kdr 14:16 ED course: ENTRY ENGINEER: 361/150/000:300. kdr 15:16 Data reviewed: vital signs, nurses notes, lab test result(s), radiologic studies. kdr Counseling: I had a detailed discussion with the patient and/or guardian regarding: the historical points, exam findings, and any diagnostic results supporting the discharge/admit diagnosis, lab results, radiology results, the need for outpatient follow up. 10/05 11:50 Order name: Basic Metabolic Panel kdr 10/05 11:50 Order name: CBC with Diff; Complete Time: 13:37 kdr 10/05 11:50 Order name: Hepatic Function; Complete Time: 13:37 kdr 10/05 11:50 Order name: Lipase; Complete Time: 13:37 kdr 10/05 11:50 Order name: Basic Metabolic Panel; Complete Time: 13:37 EDTX 10/05 11:50 Order name: IV Saline Lock; Complete Time: 12:00 kdr 10/05 11:50 Order name: Labs collected and sent; Complete Time: 12:00 kdr 10/05 11:52 Order name: Abdomen ; Complete Time: 13:37 EDMS Administered Medications: 12:16 Drug: Zofran (Ondansetron) 4 mg Route: IVP; Site: right antecubital; ap3 13:10 Follow up: Response: No adverse reaction; Nausea is decreased ap3 12:17 Drug: morphine 4 mg Route: IVP; Site: right antecubital; ap3 13:10 Follow up: Response: No adverse reaction; Pain is decreased ap3 Disposition Summary: 10/05/20 14:15 Discharge Ordered Location: Home kdr Condition: Stable(10/05/20 14:16) kdr Diagnosis - Abdominal tenderness - RLQ kdr Followup: kdr - With: Will Tejeda MD - When: 2 - 3 days - Reason: If symptoms return, Further diagnostic work-up, Recheck today's complaints, Continuance of care, Re-evaluation by your physician Discharge Instructions: - Discharge Summary Sheet kdr - Abdominal Pain, Adult, [id number] kdr Forms: - Medication Reconciliation Form kdr - Thank You Letter kdr - Prescription Opioid Use kdr Prescriptions: - Tramadol 50 mg Oral Tablet - take 1 tablet by ORAL route every 4-6 hours As needed as needed; 16 tablet; kdr Refills: 0, Product Selection Permitted Signatures: Dispatcher [employer] EDMS Luis Mai MD MD kdr Leal, Jahala, RN RN jl7 Madina Mccullough RN RN ap3 Corrections: (The following items were deleted from the chart) 11:52 11:50 Abdomen Pelvis W Con+CT.RAD.BRZ ordered. EDMS EDMS 14:16 14:15 Fair kdr kdr
[2020-10-05 14:58] VITALS: TEMP 97.9
[2020-10-05 15:07] VITALS: BP 153/77; O2SAT 94
== END 2020-10-05 14:50 | disposition home or self-care (01) ==
LOC: ER 10:35
DX: R10.813 Right lower quadrant abdominal tenderness (principal); F17.210 Nicotine dependence, cigarettes, uncomplicated; I10 Essential (primary) hypertension; Z88.1 Allergy status to other antibiotic agents; Z88.5 Allergy status to narcotic agent; Z99.2 Dependence on renal dialysis; Z94.4 Liver transplant status
CPT/HCPCS: 85025; 80048; 36415; 80076; 83690; 74176; 96375; 96374; 99284; J2405

== ENCOUNTER 2020-11-03 14:41 | Emergency (ER) | payer OTHER ==
--- OUTSIDE RECORDS SUMMARY | 2020-11-03 14:47 | XMS REPORT | Continuity of Care Document ---
:1955 Author Organization [facility] t Address [address] [place] [address] Care Team Providers Name Role Phone [facility] Wyatt PHELAN, Y.H. Attending Clinician Saleem Dan Attending Clinician Unavailable Domenico Attending Clinician Unavailable Dangelo Canseco MD Attending Clinician Claudio RN, N Attending Clinician Unavailable Chet Attending Clinician Unavailable Jina VALLADARES Attending Clinician Unavailable Hadley VALLADARES, Y Attending Clinician Unavailable Tru RN Attending Clinician Unavailable Irvin Newby MD Attending [...] Effective Date Expiration Date Sour ce Number UHC MEDICAREUHC [id number] 2018 [facility]IC[facility]00 [facility]76707[facility]/26 019-PresentHMO [facility] [id number] [address] [facility] - - MEDICARE MGD 00:00:00 Medical Ce nter CAREUNITED MEDICARE [id number]/03/26 019-Present [place] [employer] [id number] [facility] [address] [facility] - [facility] - MEDICARE 00:00:00 Medical Center MGD [facility]UM [facility] MCR [id number]/-PresentTran splants [facility] Problems Condition Condition Condition Status Onset Resolution Last Treating Co mments Source Name Details Category Date Date Treatment Clinician Date Screening Screening Disease Active [facility] for 11-18 [facility] - malignant malignant 00:00: Medi erasmo neoplasm neoplasm 00 Center ESRD (end ESRD (end Disease Active 2018-03 Met [facility] stage stage 0-10 st renal renal 00:00: Hospita disease) disease) 00 l on on dialysis dialysis AV AV Disease Active 2018-03 Methodi (arteriove (arteriove 0-10 nous nous 00:00: Hospita fistula) fistula) 00 l Diabetes Diabetes Disease Active 2018-03 Metho di mellitus mellitus 0-10 st with with 00:00: Hospita hyperglyce hyperglyce 00 l john john Pleural Pleural Disease Active [facility] [...] monitor- labs pending. Liver Liver Disease Active [facility] replaced replaced 09-30 [facility] - by by 00:00: t & Plan: Medical transplant transplant 00 Excellent Center graft function. Type 2 Type 2 Disease Active [facility] diabetes diabetes - [facility] - mellitus mellitus 00:00: t & Plan: Med ical with with 00 Blood Center diabetic diabetic sugars polyneurop polyneurop controlle athy, with athy, with d. long-term long-term current current use of use of insulin insulin Obesity Obesity Disease Active [facility] (BMI (BMI 9-25 [facility] - 30-39.9) 30-39.9) 00:00: t & Plan: Med ical 00 Patient Center has not yet started to diet. Patient uses a walker but seems motivated to make changes. States she has lost 45 pounds in anticipat ion of transplan t. Lipid profile looks good on last lab draw. Portal Portal Disease Active [facility] hypertensi hypertensi 10-29 [facility] - on on 00:00: t & Plan: Medical 00 Manifeste Center d by ugo tom. HCC HCC Disease Active [facility] (hepatocel (hepatocel 10-29 [facility] - lular lular 00:00: t & Plan: Medical carcinoma) carcinoma) 00 2 foci of Center HCC without lymphovas cular invasion. Continue with HCC surveilla nce using cross-sec tional imaging. Hepatitis Hepatitis Disease Active [facility] C, C, 10-[facility] - genotype genotype 00:00: t & Plan: Med ical 3a 3a 00 Patient Center is s/p liver transplan t. Is being followed by hepatolog y. Immunity Immunity Disease Active [facility] t status status 10-[facility] - testing testing 00:00: t & Plan: [...] [facility] - 25.0-29.9) 25.0-29.9) [facility] Metabolic Metabolic Disease Active [facility] syndrome syndrome [facility] Allergies, Adverse Reactions, Alerts Allergy Allergy Status Severity Reaction(s) Onset Inactive Treating Comm ents Source Name Type Date Date Clinician Levoflox Propensi Active Rash Method i acin ty to 11-20 st adverse 00:00: Hospita reaction 00 l s to drug Codeine Propensi Active Itching Method i ty to 11-13 st adverse 00:00: Hospita reaction 00 l s to drug Levoflox Propensi Active Itching,r [facility] ac[facility] to 09-30 claudia and Britton - adverse 00:00: burning Medical reaction 00 on the Center s site only. Codeine Drug Active Rash [facility] Allergy 10-29 kes - 00:00: Medical 00 [place] Family History Family Member Diagnosis Comments Start Date Stop Date Source Natural mother Stroke [facility] Natural sister Cancer [facility] Social History Social Habit Start Date Stop Date Quantity Comments Source History of tobacco Current smoker [facility] Sex Assigned At [facility] Cigarettes smoked 2020-05-04 2020-05-04 [facility] - current (pack per 00:00:00 00:00:00 [facility] Center day) - Reported Cigarette 2020-05-04 2020-05-04 [facility] - pack-years 00:00:00 00:00:00 [facility] Tobacco use and 2020-05-04 2020-05-04 Never used [facility] - exposure 00:00:00 00:00:00 [facility] Alcohol intake 2020-05-04 2020-05-04 Current [facility] - 00:00:00 00:00:00 non-drinker of Medical Ce nter alcohol (finding) Alcohol Comment 2016-08-08 2016-08-08 1 drink/ [address] [facility] - 00:00:00 00:00:00 [facility] Center Smoking Status Start Date Stop Date Source Former smoker 2020-05-04 00:00:00 2020-05-04 00:00:[address] [facility] Medications Ordered Filled Start Stop Current [...] Center mouth 2 (two) times daily. metoprolol 2019-0 Yes 100mg Q.5D Take [address] (TOPROL-XL) 1-21 mg by [facility] - 100 MG 24 18:16: mouth 2 Medic al hr tablet 17 (two) Center times daily. traMADol 0 Yes 50mg Take [address] [...] 2018-03 Yes 40mg QD Take 40 mg Methodi n (LIPITOR) 0-[address] 40 MG 02:28: daily. Hospita tablet 04 l furosemide 2018-03 Yes 40mg QD Take 40 mg M ethodi (LASIX) 40 0-[address] mg tablet 02:28: daily. Hospit a 04 l LANTUS 2018-03 Yes 15U QD Inject 15 Method i SOLOSTAR 0-[address] U-100 02:28: under the Hospita INSULIN 100 04 skin every l unit/mL morning. injection (pen) lactulose 2018-03 Yes 20g QD Take 20 g Met hodi (CHRONULAC) 0-[address] 10 gram/15 02:28: daily. Hospi ta mL solution 04 l traMADol 2018-03 Yes 50mg [id number] Take 50 mg Methodi (ULTRAM) 50 0-12 [id number] [address] mouth 3 st mg tablet 02:28: 3D (three) Hospi ta 04 times a l day as needed for moderate pain or severe pain. metoprolol 2018-03 Yes 50mg Q.5D Take 50 mg M ethodi tartrate 0-[address] (LOPRESSOR) 02:28: (two) Hospi ta 100 mg 04 times a l tablet day. tacrolimus 2018-03 Yes 3mg QD Take 3 mg Me thodi (PROGRAF) 1 0-[address] MG capsule 02:28: every Hospit a 04 morning. l Note: Pt is taking 3 cap QAM and 2 caps QHS. tacrolimus 2018-03 Yes 2mg QD Take 2 mg Me [facility]odi (PROGRAF) 1 0-[address] MG capsule 02:28: nightly. Hos belkis 04 Note: Pt l is taking 3 cap QAM and 2 caps QHS. ergocalcife 2018-03 Yes [id number] Q7D Take Meth jordy rol 0-12 50,000 [address] (VITAMIN 02:28: Units by Hospi ta D2) 50,000 04 mouth once l unit a week. ( capsule Saturday ) tacrolimus 2020- No 3mg in the [facility] (PROGRAF) 1 9-16 11-02 morning Luke s - MG capsule 00:00: 00:00 and 2mg at Medical 00 :00 night. Center insulin Yes 15U QD Inject 15 [facility] S t glargine 8-27 Units [facility]ukes - (LANTUS 00:00: subcutaneo Medi erasmo SOLOSTAR 00 usly every Cente r U-100 morning. INSULIN) 100 unit/mL (3 mL) InPn blood sugar Yes Diabetes Test 4 [facility] diagnostic 7-31 (HCC) times [facility]ukes - (EASY 00:00: daily, Medical TOUCH) Strp [address] and at bedtime. Immunizations Ordered Immunization Filled Immunization Date Status Commen ts Source Name Name Pneumococcal 2016-08-[address] [facility] - Polysaccharide 00:00:00 Medical Ce nter (Pneumovax) Vital Signs Vital Name Observation Time Observation Value Comments Source Body height 2020-05-04 15:11:00 165.1 cm [facility] Body weight 2020-05-04 15:11:00 87 kg [facility] BMI 2020-05-04 15:11:00 31.92 kg/m2 [facility] Procedures This patient has no known procedures. Plan of Care Planned Activity Planned Date Details Comments Source Future Scheduled 2021-08-09 PNEUMOCOCCAL 65+ YRS [facility] - Test 00:00:00 (1 of 1 - [facility] Center [id number] PCV13) [code = PNEUMOCOCCAL 65+ YRS (1 of 1 - [id number] PCV13)] Future Scheduled 2020-11-23 INFLUENZA VACCINE (#1) [facility] Test 00:00:00 [code = INFLUENZA Medical Ce nter VACCINE (#1)] Future Scheduled 2020-03-[address] [facility] - Test 00:00:00 (12+) [code = [facility] Center DEPRESSION SCREENING (12+)] Future Scheduled 2020-03-25 FALLS RISK SCREENING [facility] - Test 00:00:00 [code = FALLS RISK Medical C enter SCREENING] Future Scheduled 2019-07-[address] [facility] - Test 00:00:00 WELLNESS (YEAR 2 or Medical Center FIRST YEAR if no IPPE) [code = MEDICARE ANNUAL WELLNESS (YEAR 2 or FIRST YEAR if no IPPE)] Future Scheduled 2019-02-[address] [address] [facility] - Test 00:00:00 measurement [facility] Center (procedure) [code = 96285330] Future Scheduled 2003 SHINGLES VACCINES ([address] [facility] - Test 00:00:00 of 2) [code = SHINGLES Medic al Center VACCINES (1 of 2)] Future Scheduled 1972-01-08 DTAP/TDAP/TD VACCINES [facility] - Test 00:00:00 (1 - Tdap) [code = Medical C enter DTAP/TDAP/TD VACCINES (1 - Tdap)] Future Scheduled 1965 COVID-19 VACCINE (1) [facility] - Test 00:00:00 [code = COVID-[address] VACCINE (1)] Future Scheduled 1963 DIABETIC EYE EXAM [facility] - Test 00:00:00 [code = DIABETIC EYE Medical Center EXAM] Future Scheduled [address] [facility] - Test 00:00:00 examination Medical Center (regime/therapy) [code = 102240694] Future Scheduled 1963 Urine screening for [facility] - Test 00:00:00 protein (procedure) Medical Center [code = 716207701] Future Scheduled [address] [facility] - Test 00:00:00 malignant neoplasm of [facility] breast (procedure) [code = 494804726] Future Scheduled [address] [facility] - Test 00:00:00 malignant neoplasm of [facility] colon (procedure) [code = 699946267] Future Scheduled 65+ [facility]OCOCCAL [facility] Test VACCINE (1 of 4 - PCV13) [code = 65+ PNEUMOCOCCAL VACCINE (1 of 4 - PCV13)] Future Scheduled DIABETES: RETINAL E[facility] EXAM [code = DIABETES: RETINAL EYE EXAM] Future Scheduled DIABETIC FOOT EX[facility] Test [code = DIABETIC FOOT EXAM] Future Scheduled COVID-19 VACCINE (1) [facility] Test [code = COVID-19 VACCINE (1)] Future Scheduled BREAST CANCER [facility] Test SCREENING [code = BREAST CANCER SCREENING] Future Scheduled COLONOSCOPY [facility]CRE[facility]ING [facility] Test [code = COLONOSCOPY SCREENING] Future Scheduled SHINGLES VACCINES (#1) [facility] Test [code = SHINGLES VACCINES (#1)] Future Scheduled INFLUENZA VACCINE [facility] Test [code = INFLUENZA VACCINE] Encounters Start End Encounter Admission Attending Care Care Encounter Source Date/Time Date/Time Type Type Clinicians Facility Department ID 2020-11-02 2020-11-02 Telephone Schneider, 1.2.840.1 [id number] Methodi 00:00:00 00:00:[address] Arnold[address] 3.430.2.7 Hospit a .3.776413 l .8 2020-11-02 2020-11-02 Travel 1..840.1 [id number] [facility] 00:00:00 00:00:[address] 3.430.2.7 0.2.7.3.698 Ho spita .3.302181 084.8 l .8 2020-11-02 2020-11-02 Debbi Li.2.840.1 [id number] Methodi 00:00:00 00:00:00 Arnoldo Forrest.H[address] 3.430.2.7 Hospit a .3.672382 l .8 Results Test Description Test Time Test Comments Results Result Comments Source POCT-GLUCOSE METER 2019-04-14 17:00:00 Test Item Value Reference Range Interpretation Comme nts POC-GLUCOSE METER (BEAKER) 82 mg/dL 70-110 : TESTED AT [facility] [address] (test code = 1538) [facility], [place] [address]: Salesforce Specialist/Techni leah ID = [id number] for Dimitry Sparks a POCT-GLUCOSE [id number] 13:38:00 Test Item Value Reference Range Interpretation Comments POC-GLUCOSE METER 143 mg/dL 70-110 H : TESTED A T [facility] [address] (BEAKER) (test code [facility] NT [facility], = 1538) [facility] [place] [address]: Salesforce Specialist/Techni leah ID = [id number] for [facility] [facility] BASIC METABOLIC [id number] 14:15:00 Test Item Value Reference Range Interpretation [...] S NOT APPLICABLE FOR DIALYSIS PATIEN TS. [id number] 14:10:00 Test Item Value Reference Range Interpretation [...] Information (Auto Output)CBC W/PLT COUNT & AUTO [id number] 13:57:00 Test Item Value Reference Range Interpretation [...] (BEAKER) (test code = 2801) HEPATITIS PANEL, [id number] 13:23:00 Test Item Value Reference Range Interpretation Comments HEPATITIS A IGM ANTIBODY (BEAKER) Nonreactive Nonreactive (test code = 498) HEPATITIS B CORE IGM ANTIBODY Nonreactive Nonreactive (BEAKER) (test code = 645) HEPATITIS C ANTIBODY (BEAKER) Reactive Nonreactive A (test code = 367) HEPATITIS B SURFACE ANTIGEN (2) Nonreactive Nonreactive (BEAKER) (test code = 2585) HEPATITIS C PCR, [id number] 09:00:00 Test Item Value Reference Range Interpretation Comments HCV RESULT COMPONENT HCV RNA not detected HCV RNA not detected (BEAKER) (test code = 2699) This test uses a Real-Time Polymerase Chain Reaction (RT-PCR) methodology and was performed using LAZ Ampliprep/LAZ TaqMan HCV test kit version 2.0 ([employer]).Reportable range for this assay is 15 - 100,000,000 IU per mL (1.18 - 8.00 Log IU/mL).RAD, CHEST, 2 [id number] 12:43:00PA and Lateral for Liver TransplantReason for [...] MDReport Verified Date/Time: 11/18/2018 12:43:30 Reading Location: [facility] 12:43 PMU/S, ABDOMINAL, WITH [id number] 12:41:00Doppler Study to evaluate Hepatic vesselsReason for [...] MDReport Verified Date/Time: 11/18/2018 12:41:02 Reading Location: [address] Radiology ReadingRoom TACROLIMUS [id number] 11:19:00 Test Item Value Reference Range Interpretation Comments TACROLIMUS BLOOD (BEAKER) (test 12.6 ng/mL 10.0-20.0 code = 657) COMPREHENSIVE METABOLIC [id number] 09:26:00 Test Item Value Reference Range Interpretation [...] S NOT APPLICABLE FOR DIALYSIS PATIEN TS. [id number] 08:48:00 Test Item Value Reference Range Interpretation Comments PHOSPHORUS (BEAKER) (test code = 6.5 mg/dL 2.3-4.7 H 604) [id number] 08:48:00 Test Item Value Reference Range Interpretation Comments MAGNESIUM (BEAKER) (test code = 3.1 mg/dL 1.6-2.6 H 627) BILIRUBIN, [id number] 08:48:00 Test Item Value Reference Range Interpretation Comments BILIRUBIN DIRECT (BEAKER) (test 0.4 mg/dL 0.1-0.5 code = 706) CBC W/PLT COUNT & AUTO [id number] 08:07:00 Test Item Value Reference Range Interpretation [...] PERCENT (BEAKER) (test code = 2801) POCT-GLUCOSE [id number] 14:28:00 Test Item Value Reference Range Interpretation Comments POC-GLUCOSE METER 89 mg/dL 70-110 TESTED AT [place] [address] ([facility]) (test code = [facility] [address] 1538) POCT-GLUCOSE [id number] 11:40:00 Test Item Value Reference Range Interpretation Comments POC-GLUCOSE METER 131 mg/dL 70-110 H TESTED AT [place] [address] ([facility]) (test code = [facility] 1538) [address] TACROLIMUS [id number] 09:35:00 Test Item Value Reference Range Interpretation Comments [facility]CR[facility]IMUS BLOOD [facility] (test 5.7 ng/mL 10.0-20.0 L code = 657) POCT-GLUCOSE [id number] 07:27:00 Test Item Value Reference Range Interpretation Comments POC-GLUCOSE METER 101 mg/dL 70-110 TESTED AT [place] [address] ([facility]) (test code = [facility] 1538) [address] BASIC METABOLIC [id number] 06:57:00 Test Item Value Reference Range Interpretation [...] APPLICABLE FOR DIALYSIS PATIEN TS. HEPATIC FUNCTION [id number] 06:56:00 Test Item Value Reference Range Interpretation [...] code = 15 U/L 6-55 347) POCT-GLUCOSE [id number] 16:39:00 Test Item Value Reference Range Interpretation Comments POC-GLUCOSE METER 149 mg/dL 70-[address] [facility] 6720 (BEAKER) (test code = BRENDA M[place] 1538) [address] HEPATITIS B SURFACE [id number] 15:26:00 Test Item Value Reference Range Interpretation Comments HEPATITIS B SURFACE ANTIBODY < mIU/mL <8.0 (BEAKER) (test code = 647) POCT-GLUCOSE [id number] 12:22:00 Test Item Value Reference Range Interpretation Comments POC-GLUCOSE METER 141 mg/dL 70-[address] [facility] 67[address] (BEAKER) (test code = BR[place] 15[address]) [address] TACROLIMUS [id number] 09:43:00 Test Item Value Reference Range Interpretation Comments TACROLIMUS BLOOD (BEAKER) (test 5.5 ng/mL 10.0-20.0 L code = 657) POCT-GLUCOSE [id number] 07:48:00 Test Item Value Reference Range Interpretation Comments POC-GLUCOSE METER 135 mg/dL 70-[address] [facility] 67[address] (BEAKER) (test code = BRENDA [place] 1538) [address] BASIC METABOLIC [id number] 07:00:00 Test Item Value Reference Range Interpretation [...] APPLICABLE FOR DIALYSIS PATIEN TS. HEPATIC FUNCTION [id number] 06:54:00 Test Item Value Reference Range Interpretation Comments TOTAL PROTEIN (BEAKER) (test code = 6.5 gm/dL 6.0-8.3 770) ALBUMIN (BEAKER) (test code = 1145) 2.9 g/dL 3.5-5.0 L BILIRUBIN TOTAL (BEAKER) (test code 0.9 mg/dL 0.2-1.2 = 377) BILIRUBIN DIRECT (BEAKER) (test 0.5 mg/dL 0.1-0.5 code = 706) ALKALINE PHOSPHATASE ([facility]) (test 82 U/L 40-150 code = 346) AST (SGOT) ([facility]) (test code = 21 U/L 5-34 353) ALT (SGPT) ([facility]) (test code = 15 U/L 6-55 347) POCT-GLUCOSE [id number] 16:29:00 Test Item Value Reference Range Interpretation Comments POC-GLUCOSE METER 167 mg/dL 70-110 H TESTED AT [place] [address] ([facility]) (test code = [facility] 1538) [address] POCT-GLUCOSE [id number] 12:30:00 Test Item Value Reference Range Interpretation Comments POC-GLUCOSE METER 116 mg/dL 70-110 H TESTED AT [place] [address] ([facility]) (test code = [facility] 1538) [address] TACROLIMUS [id number] 11:11:00 Test Item Value Reference Range Interpretation Comments TACROLIMUS BLOOD ([facility]) (test 4.3 ng/mL 10.0-20.0 L code = 657) HEPATITIS C PCR, [id number] 09:05:00 Test Item Value Reference Range Interpretation Comments HCV RESULT COMPONENT HCV RNA not detected HCV RNA not detected ([facility]) (test code = 2699) This test uses a Real-Time Polymerase Chain Reaction (RT-PCR) methodology and was performed using LAZ Ampliprep/LAZ TaqMan HCV test kit version 2.0 ([employer]).Reportable range for this assay is 15 - 100,000,000 IU per mL (1.18 - 8.00 Log IU/mL).POCT-GLUCOSE [id number] 08:55:00 Test Item Value Reference Range Interpretation Comments POC-GLUCOSE METER 114 mg/dL 70-110 H TESTED AT [place] [address] ([facility]) (test code = [facility] 1538) [address] HEPATIC FUNCTION [id number] 06:29:00 Test Item Value Reference Range Interpretation Comments TOTAL PROTEIN ([facility]) (test code = 6.5 gm/dL 6.0-8.3 770) ALBUMIN ([facility]) (test code = 1145) 3.0 g/dL 3.5-5.0 L BILIRUBIN TOTAL ([facility]) (test code 0.8 mg/dL 0.2-1.2 = 377) BILIRUBIN DIRECT ([facility]) (test 0.5 mg/dL 0.1-0.5 code = 706) ALKALINE PHOSPHATASE (AKER) (test 86 U/L 40-150 code = 346) AST (SGOT) (AKER) (test code = 14 U/L 5-34 353) ALT (SGPT) ([facility]) (test code = 11 U/L 6-55 347) POCT-GLUCOSE [id number] 22:27:00 Test Item Value Reference Range Interpretation Comments POC-GLUCOSE METER 272 mg/dL 70-110 H TESTED AT [place] [address] ([facility]) (test code = BRENDA Santiago [facility] 1538) [address] POCT-GLUCOSE [id number] 16:45:00 Test Item Value Reference Range Interpretation Comments POC-GLUCOSE METER 108 mg/dL 70-110 TESTED AT [place] [address] ([facility]) (test code = BRENDA Santiago [facility] 1538) [address] POCT-GLUCOSE [id number] 11:54:00 Test Item Value Reference Range Interpretation Comments POC-GLUCOSE METER 153 mg/dL 70-110 H TESTED AT [place] [address] ([facility]) (test code = LAWWI Jack [facility] 1538) [address] TACROLIMUS [id number] 09:55:00 Test Item Value Reference Range Interpretation Comments TACROLIMUS BLOOD ([facility]) (test 5.5 ng/mL 10.0-20.0 L code = 657) U/S, [id number] 09:51:00Laterality?->RightReason for exam:->dyspneaFINAL REPORT Exam: Ultrasound guided [...] MDReport Verified Date/Time: 09/09/2018 09:51:20 Reading Location: [address] Transitional Reading Room BASIC METABOLIC PANEL [...] NOT APPLICABLE FOR DIALYSIS PATIEN TS. POCT-GLUCOSE [id number] 07:33:00 Test Item Value Reference Range Interpretation Comments POC-GLUCOSE METER 175 mg/dL 70-[address] [facility] 6720 (BEAKER) (test code = [place] 80[address]) [address] HEPATIC FUNCTION [id number] 06:51:00 Test Item Value Reference Range Interpretation [...] = 13 U/L 5-34 353) ALT (SGPT) ([facility]) (test code = 10 U/L 6-55 347) POCT-GLUCOSE [id number] 01:03:00 Test Item Value Reference Range Interpretation Comments POC-GLUCOSE METER 207 mg/dL 70-[address] [facility] 6720 ([facility]) (test code = BRENDA Santiago [facility] 1538) [address] POCT-GLUCOSE [id number] 16:52:00 Test Item Value Reference Range Interpretation Comments POC-GLUCOSE METER 296 mg/dL 70-[address] [facility] 67 ([facility]) (test code = BRENDA Santiago [facility] 1538) [address] ANG, TUNNELED CATHETER [id number] 15:43:00Tunneled dialysis catheter placement, may be done [...] Physician intra- service time was 20 min. Supervisor Transcribing Operators: Yessenia. Technical Services Analyst: None. Approach: Right internal jugular vein Estimated [...] needle into the right atrium. A 4 [place] Island[place] micropuncture sheath was placed. A subcutaneous tunnel was created in the right anterior chest wall by blunt dissection. A 19 cm 15.5 [place] Island[place] Duraflow 2 catheter was brought through the [...] fluoroscopic guidance and conscious sedation. Signed: Alfredo Casasort Verified Date/Time: 09/08/2018 15:43:17 Reading Location: [address] Body Reading Room CYTOLOGY 2018-09-08 11:56:00Medical Cytology Report Case: [id number] Authorizing Provider: Wero Sharp MD Collected: 09/04/2018 1820 Ordering Location: [address] Received: 09/05/2018 0846 Pathologist: Donnie Otoole MD Specimen: Pleural, Right RIGHT PLEURAL FLUID (CYTOSPINS AND CELL BLOCK): - REACTIVE MESOTHELIAL CELLS IN A BACKGROUND OF CHRONIC INFLAMMATION Signing Pathologist Direct Phone Line: [phone] signed by Donnie Otoole MD on 09/08/2018 at 11:56 [id number], [id number] pleural effusion, history of hepatocellular cancerRIGHT PLEURAL [id number] mls orange; 4 cytospins, cell blockCollected: [id number]: [id number]ist [facility] [facility], Department of Pathology, [address] [place] [address], Tel [phone], [facility] of [facility]ology, [address] [place] [address], [facility]rl[facility]Gl[facility], Department of Pathology, [address] [place] [address], TYOD-GLUCOSE [id number] 11:51:00 Test Item Value Reference Range Interpretation Comments POC-GLUCOSE METER 166 mg/dL 70-110 H TESTED AT [place] [address] (BEAKER) (test code = BRENDA Santiago [place] 1538) [address] TACROLIMUS [id number] 11:01:00 Test Item Value Reference Range Interpretation Comments TACROLIMUS BLOOD (BEAKER) (test 7.3 ng/mL 10.0-20.0 L code = 657) BASIC METABOLIC [id number] 07:58:00 Test Item Value Reference Range Interpretation [...] APPLICABLE FOR DIALYSIS PATIEN TS. HEPATIC FUNCTION [id number] 07:37:00 Test Item Value Reference Range Interpretation [...] 6-55 347) CBC W/PLT COUNT & AUTO [id number] 06:02:00 Test Item Value Reference Range Interpretation [...] PERCENT (BEAKER) (test code = 2801) POCT-GLUCOSE [id number] 21:57:00 Test Item Value Reference Range Interpretation Comments POC-GLUCOSE METER 156 mg/dL 70-[address] [facility] 67 [facility] (test code = [facility] 1538) [address] POCT-GLUCOSE [id number] 17:25:00 Test Item Value Reference Range Interpretation Comments POC-GLUCOSE METER 111 mg/dL 70-[address] [facility] 67 ([facility] (test code = [facility] 1538) [address] BODY FLUID CULTURE + GRAM [id number] 15:07:00 Test Item Value Reference Range Interpretation Comments CULTURE (BEAKER) (test code No growth = 1095) GRAM STAIN RESULT (BEAKER) <1+ WBCs (test code = 1123) GRAM STAIN RESULT (BEAKER) No organisms seen (test code = 07434) POCT-GLUCOSE [id number] 12:46:00 Test Item Value Reference Range Interpretation Comments POC-GLUCOSE METER 87 mg/dL 70-[address] [facility] 6720 ([facility] (test code = [facility] [address] 1538) TACROLIMUS [id number] 11:03:00 Test Item Value Reference Range Interpretation Comments TACROLIMUS BLOOD (BEAKER) (test 10.0 ng/mL 10.0-20.0 code = 657) POCT-GLUCOSE [id number] 08:16:00 Test Item Value Reference Range Interpretation Comments POC-GLUCOSE METER 126 mg/dL 70-[address] [facility] 6720 (BEAKER) (test code = [place] 1538) [address] BASIC METABOLIC [id number] 06:40:00 Test Item Value Reference Range Interpretation [...] APPLICABLE FOR DIALYSIS PATIEN TS. HEPATIC FUNCTION [id number] 06:33:00 Test Item Value Reference Range Interpretation [...] 6-55 347) CBC W/PLT COUNT & AUTO [id number] 05:51:00 Test Item Value Reference Range Interpretation [...] (test code = 416) BASOPHILS ABSOLUTE COUNT (AKER) 0.05 K/ L 0.01-0.08 (test code = 417) IMMATURE GRANULOCYTES-RELATIVE 2 % 0-1 H PERCENT ([facility]) (test code = 2801) POCT-GLUCOSE [id number] 21:41:00 Test Item Value Reference Range Interpretation Comments POC-GLUCOSE METER 135 mg/dL 70-[address] [facility] 67 ([facility]) (test code = [facility] 1538) [address] [id number] 20:16:00 Test Item Value Reference Range Interpretation Comments FERRITIN ([facility]) (test code = 361) 73 ng/mL 5-275 POCT-GLUCOSE [id number] 18:07:00 Test Item Value Reference Range Interpretation Comments POC-GLUCOSE METER 158 mg/dL 70-[address] [facility] 67 ([facility]) (test code = [facility] 1538) [address] RETICULOCYTE [id number] 14:40:00 Test Item Value Reference Range Interpretation Comments RETICULOCYTE COUNT PCT ([facility]) (test 3.7 % 0.5-1.7 H code = 575) HEPATITIS B CORE ANTIBODY, [id number] 14:27:00 Test Item Value Reference Range Interpretation Comments HEPATITIS B CORE TOTAL ANTIBODY Nonreactive Nonreactive ([facility]) (test code = 497) TSH/FREE T4 IF [id number] 14:27:00 Test Item Value Reference Range Interpretation Comments THYROID STIMULATING HORMONE 1.44 uIU/mL 0.35-4.94 ([facility]) (test code = 772) [id number] 14:20:00 Test Item Value Reference Range Interpretation Comments PROTIME ([facility]) (test code = 14.7 seconds 11.9-14.2 H 759) INR ([facility]) (test code = 370) 1.2 <=5.9 PARTIAL THROMBOPLASTIN TIME 35.3 seconds 22.5-36.0 ([facility]) (test code = 760) Effective 08/20/2018: PT Reference Range ChangeNew: 11.9-14.2 Previous: 11.7- 14.7RECOMMENDED COUMADIN/WARFARIN INR THERAPY RANGESSTANDARD DOSE: 2.0-3.0 Includes: PROPHYLAXIS for venous thrombosis, systemic embolization; TREATMENT for venous thrombosis and/or pulmonary embolus.HIGH RISK: Target INR is2.5-3.5 for patients wiht mechanical heart valves.PTH, [id number] 14:07:00 Test Item Value Reference Range Interpretation [...] 20-55 L (test code = 2590) TACROLIMUS [id number] 13:41:00 Test Item Value Reference Range Interpretation Comments TACROLIMUS BLOOD (BEAKER) (test 7.2 ng/mL 10.0-20.0 L code = 657) POCT-GLUCOSE [id number] 11:43:00 Test Item Value Reference Range Interpretation Comments POC-GLUCOSE METER 191 mg/dL 70-[address] [facility] 67 ([facility]) (test code = [facility] 1538) [address] POCT-GLUCOSE [id number] 08:45:00 Test Item Value Reference Range Interpretation Comments POC-GLUCOSE METER 119 mg/dL 70-110 H TESTED AT [place] [address] ([facility]) (test code = [facility] 1538) [address] BASIC METABOLIC [id number] 07:28:00 Test Item Value Reference Range Interpretation [...] APPLICABLE FOR DIALYSIS PATIEN TS. HEPATIC FUNCTION [id number] 07:26:00 Test Item Value Reference Range Interpretation [...] 347) hemolyzed CBC W/PLT COUNT & AUTO [id number] 06:31:00 Test Item Value Reference Range Interpretation [...] PERCENT (BEAKER) (test code = 2801) POCT-GLUCOSE [id number] 22:37:00 Test Item Value Reference Range Interpretation Comments POC-GLUCOSE METER 144 mg/dL 70-110 H TESTED AT [place] [address] ([facility] (test code = BRENDA Santiago [facility] 1538) [address] POCT-GLUCOSE [id number] 16:48:00 Test Item Value Reference Range Interpretation Comments POC-GLUCOSE METER 207 mg/dL 70-[address] [facility] 6720 ([facility] (test code = BRENDA [place] [facility] 1538) [address] POCT-GLUCOSE [id number] 12:16:00 Test Item Value Reference Range Interpretation Comments POC-GLUCOSE METER 191 mg/dL 70-[address] [facility] 6720 (BEAKER) (test code = [place] 1538) [address] TACROLIMUS [id number] 11:23:00 Test Item Value Reference Range Interpretation Comments TACROLIMUS BLOOD (BEAKER) (test 5.7 ng/mL 10.0-20.0 L code = 657) BASIC METABOLIC [id number] 06:24:00 Test Item Value Reference Range Interpretation [...] APPLICABLE FOR DIALYSIS PATIEN TS. HEPATIC FUNCTION [id number] 06:22:00 Test Item Value Reference Range Interpretation [...] code = 11 U/L 6-55 347) POCT-GLUCOSE [id number] 22:19:00 Test Item Value Reference Range Interpretation Comments POC-GLUCOSE METER 195 mg/dL 70-[address] [facility] 6720 (BEAKER) (test code = [place] 1538) [address] BODY FLUID CELL COUNT WITH [id number] 21:04:00 Test Item Value Reference Range Interpretation [...] Tube (test code = 2873) PH, BODY [id number] 19:43:00 Test Item Value Reference Range Interpretation Comments PH, BODY FLUID (BEAKER) (test code = 7.80 1530) LACTATE DEHYDROGENASE (LDH), BODY [id number] 19:41:00 Test Item Value Reference Range Interpretation [...] validated for this type of specimen.PROTEIN, BODY [id number] 19:31:00 Test Item Value Reference Range Interpretation Comments PROTEIN FLUID (BEAKER) 2.5 g/dL Light's criteria identifies (test code = 579) effusions if one or more are pre Absence of reference range indicates that normals have not been defined.Assay performance has not been validated for this type of specimen.RAD, CHEST, 1 VIEW, NON [id number] 19:14:00Reason for exam:->post right sided thoracentesisShould this [...] lesion cannot be excluded. Signed: Yann Doe [facility] Verified Date/Time: 09/04/2018 19:14:07 Reading Location: [address] Reading Room HEPATIC FUNCTION [id number] 13:48:00 Test Item Value Reference Range Interpretation [...] code = 12 U/L 6-55 347) POCT-GLUCOSE [id number] 12:07:00 Test Item Value Reference Range Interpretation Comments POC-GLUCOSE METER 171 mg/dL 70-[address] [facility] 6720 ([facility]) (test code = [place] 1538) [address] RAD, CHEST, 1 VIEW, NON [id number] 09:39:00Reason for exam:->assess lung volumesShould this be [...] and mild bilateral pleural effusions. Signed: Alfredo [place] Verified Date/Time: 09/04/2018 09:39:09 Reading Location: [facility] Radiology Reading Room POCT-GLUCOSE [id number] 09:09:00 Test Item Value Reference Range Interpretation Comments POC-GLUCOSE METER 211 mg/dL 70-[address] [facility] 6720 ([facility]) (test code = BRENDA Santiago [facility] 1538) [address] TACROLIMUS [id number] 09:06:00 Test Item Value Reference Range Interpretation Comments TACROLIMUS BLOOD (BEAKER) (test 13.6 ng/mL 10.0-20.0 code = 657) BASIC METABOLIC [id number] 06:49:00 Test Item Value Reference Range Interpretation [...] NOT APPLICABLE FOR DIALYSIS PATIEN TS. PROTHROMBIN [id number] 06:23:00 Test Item Value Reference Range Interpretation [...] mechanical heart valves.CBC W/PLT COUNT & AUTO [id number] 06:16:00 Test Item Value Reference Range Interpretation [...] PERCENT (BEAKER) (test code = 2801) POCT-GLUCOSE [id number] 01:17:00 Test Item Value Reference Range Interpretation Comments POC-GLUCOSE METER 172 mg/dL 70-[address] [facility] 6720 (BEAKER) (test code = [place] 1538) [address] URINE IMMUNOFIXATION, [id number] 16:27:00 Test Item Value Reference Range Interpretation Comments PROTEIN, URINE 240 mg/dL 0-14 H (BEAKER) (test code = 1569) ALBUMIN URINE ELP 59.2 % (BEAKER) (test code = 1018) GAMMA GLOBULIN 40.8 % URINE (BEAKER) (test code = 1015) URINE TOMA ID-402 Urine immunofixation ([facility]) (test code electrophoresis reveals no = 2602) monoclonal proteins or free light chains. [id number] Ian Morin M.D. 2 ([facility]) (test (electonic signature) code = 2603) IMMUNOFIXATION ELECTROPHORESIS (TOMA)2018-08-27 16:09:00 Test Item Value Reference Range Interpretation Comments IMMUNOGLOBULIN G (IGG) 1790 mg/dL 540-1,822 (BEAKER) (test code = 427) IMMUNOGLOBULIN A (IGA) 282 mg/dL 63-484 (BEAKER) (test code = 639) IMMUNOGLOBULIN M (IGM) 52 mg/dL 22-293 (BEAKER) (test code = 638) SERUM TOMA ID (AKER) No monoclonal (test code = 1814) proteins detected. Polyclonal distribution of immunoglobulins. [id number] Ian Morin M.D. ([facility]) (test code = (electonic signature) 1972) BODY FLUID CULTURE + GRAM [id number] 15:47:00 Test Item Value Reference Range Interpretation Comments CULTURE (BEAKER) (test code No growth = 1095) GRAM STAIN RESULT (BEAKER) <1+ WBCs (test code = 1123) GRAM STAIN RESULT (BEAKER) No organisms seen (test code = 00412) POCT-GLUCOSE [id number] 12:14:00 Test Item Value Reference Range Interpretation Comments POC-GLUCOSE METER 210 mg/dL 70-[address] [facility] 67 ([facility]) (test code = [place] 1538) [address] [id number] 12:01:00 Test Item Value Reference Range Interpretation Comments POTASSIUM (BEAKER) (test code = 5.2 meq/L 3.5-5.1 H 379) TACROLIMUS [id number] 11:52:00 Test Item Value Reference Range Interpretation Comments TACROLIMUS BLOOD (AKER) (test 6.4 ng/mL 10.0-20.0 L code = 657) Please draw 30 min prior to AM dose. Thanks!POCT-GLUCOSE [id number] 08:13:00 Test Item Value Reference Range Interpretation Comments POC-GLUCOSE METER 143 mg/dL 70-[address] [facility] 6720 (BEAKER) (test code = BRENDA [place] [facility] 1538) [address] CREATININE [id number] 07:26:00 Test Item Value Reference Range Interpretation Comments CREATININE CLEARANCE (BEAKER) 10.9 mL/min 70.0-140.0 L (test code = 357) VOLUME, TOTAL (BEAKER) (test code 800 ml = 1457) CREATININE URINE (BEAKER) (test 76.9 mg/dL code = 375) PATIENT HEIGHT (CM) (BEAKER) 167.0 cm (test code = 2799) PATIENT WEIGHT (KG) (BEAKER) 95.300 kg (test code = 2800) PROTEIN, 24 HOUR [id number] 07:26:00 Test Item Value Reference Range Interpretation Comments PROTEIN, 24HR URINE (BEAKER) 2000 mg/24hr 0-300 H (test code = 1570) VOLUME, TOTAL (BEAKER) (test 800 ml code = 1457) PROTEIN, URINE (BEAKER) (test 250 mg/dL 0-14 H code = 1569) COMPREHENSIVE METABOLIC [id number] 07:17:00 Test Item Value Reference Range Interpretation [...] code = 412) PLATELET COUNT (BEAKER) (test 166 K/CU MM 150-450 code = 756) MEAN PLATELET VOLUME (BEAKER) 9.7 fL 9.4-12.3 (test code = 754) NUCLEATED RED BLOOD CELLS 0 /100 WBC 0-0 (BEAKER) (test code = 413) ANTI-NUCLEAR ANTIBODY (WOODY)2018-08-23 06:01:00 Test Item Value Reference Range Interpretation Comments ANTI-NUCLEAR ANTIBODY (WOODY) (BEAKER) Negative Negative (test code = 418) Test performed by IFA method.Test performed by IFA method.POCT-GLUCOSE METER 2018-08-22 21:18:00 Test Item Value Reference Range Interpretation Comments POC-GLUCOSE METER 231 mg/dL 70-[address] [facility] 6720 (TIAN) (test code = BRENDA [place] [facility] 1538) [address] URINE PROTEIN ELECTROPHORESIS, [id number] 18:38:00 Test Item Value Reference Range Interpretation Comments PROTEIN, URINE 240 mg/dL 0-14 H (BEAKER) (test code = 1569) ALBUMIN URINE ELP 59.2 % (AKER) (test code = 1018) GAMMA GLOBULIN URINE 40.8 % (AKER) (test code = 1015) UPEP, ID-438 Urine protein study ([facility]) (test code consistent with = 2604) glomerular dysfunction. There is a possible band present within the gamma region. Refer to serum immunofixation electrophoresis. [id number] Karie uBtcher MD ([facility] (test code (electronic signature) = 2605) [id number] 17:59:00Medical Cytology Report Case: [id number] Authorizing Provider: Celestino Bailey MD Collected: 08/21/2018 1557 Ordering Location: [address] Received: 08/22/2018 0854 Pathologist: Mariano Cutler MD Specimen: Pleural, Right RIGHT PLEURAL FLUID (CYTOSPINS): - NO MALIGNANT CELLS IDENTIFIED (SEE COMMENT) - REACTIVE MESOTHELIAL CELLS WITH CHRONIC INFLAMMATION Signing Pathologist Direct Phone Line: [phone] signed by Mariano Cutler MD on 08/22/2018 at 5:59 PMOnly a small amount of fluid was received for cytology evaluation. If clinically discordant, repeat thoracentesis with larger amount of fluid sent for cytologyevaluation may be considered. 66217Vbirw pleural effusion, history of hepatocellular cancerRIGHT PLEURAL FLUID5 mls cuca; 4 cytospinsCollected: [id number]: [id number] Valley Community [facility], Department of Pathology, [address] [place] [address], [facility], Department of Pathology, [address] [place] [address], XmqlqvGlendora [facility], Department of Pathology, [address] [place] [address], BPDQ-GLUCOSE [id number] 17:07:00 Test Item Value Reference Range Interpretation Comments POC-GLUCOSE METER 174 mg/dL 70-[address] [facility] 6720 ([facility]) (test code = BRENDA Santiago [facility] 1536) [address] PROTEIN ELECTROPHORESIS, [id number] 15:51:00 Test Item Value Reference Range Interpretation [...] code = 391) INTERPRETATION-119 Albumin decreased. This (AKER) (test code may indicate protein = 2615) malnutrition or a protein losing state. There is a possible restriction present within the gamma region. Please refer to serum immunofixation electrophoresis. [id number] Karie Butcher MD ([facility]) (test code (electronic signature) = 2616) PROTEIN TOTAL SERUM, 6.2 gm/dL 6.0-8.3 SPEP (AKER) (test code = 2660) RHEUMATOID FACTOR AB, REFLEX TO [id number] 12:56:00 Test Item Value Reference Range Interpretation Comments RHEUMATOID FACTOR (BEAKER) (test Negative code = 573) [id number] 12:47:00 Test Item Value Reference Range Interpretation Comments RPR SCREEN ([facility]) (test code = Nonreactive Nonreactive 420) POCT-GLUCOSE [id number] 12:30:00 Test Item Value Reference Range Interpretation Comments POC-GLUCOSE METER 200 mg/dL 70-[address] [facility] 6720 ([facility]) (test code = BRENDA Santiago [facility] 1536) [address] OSMOLALITY, [id number] 11:29:00 Test Item Value Reference Range Interpretation Comments OSMOLALITY URINE ([facility]) (test 300 mOsm/kg 40-1,400 code = 614) OSMOLALITY, [id number] 10:58:00 Test Item Value Reference Range Interpretation Comments OSMOLALITY, SERUM (BEAKER) (test 307 mOsm/kg 280-303 H code = 615) TACROLIMUS [id number] 09:13:00 Test Item Value Reference Range Interpretation Comments TACROLIMUS BLOOD (BEAKER) (test 8.5 ng/mL 10.0-20.0 L code = 657) Please draw 30 min prior to AM dose. Thanks!POCT-GLUCOSE [id number] 09:01:00 Test Item Value Reference Range Interpretation Comments POC-GLUCOSE METER 156 mg/dL 70-[address] [facility] 6720 (BEAKER) (test code = [place] 1538) [address] HEPATITIS PANEL, [id number] 07:30:00 Test Item Value Reference Range Interpretation Comments HEPATITIS A IGM ANTIBODY (BEAKER) Nonreactive Nonreactive (test code = 498) HEPATITIS B CORE IGM ANTIBODY Nonreactive Nonreactive (BEAKER) (test code = 645) HEPATITIS C ANTIBODY (BEAKER) Reactive Nonreactive A (test code = 367) HEPATITIS B SURFACE ANTIGEN (2) Nonreactive Nonreactive (BEAKER) (test code = 2585) COMPREHENSIVE METABOLIC [id number] 06:31:00 Test Item Value Reference Range Interpretation [...] code = 413) HEPATITIS B CORE ANTIBODY, [id number] 22:36:00 Test Item Value Reference Range Interpretation Comments HEPATITIS B CORE TOTAL ANTIBODY Nonreactive Nonreactive (BEAKER) (test code = 497) HIV-1 ANTIGEN WITH HIV-1/2 [id number] 22:36:00 Test Item Value Reference Range Interpretation Comments HIV-1 ANTIGEN WITH HIV 1\T\2 Nonreactive Nonreactive ANTIBODY (2) (BEAKER) (test code = 2586) COMPLEMENT COMPONENT [id number] 22:13:00 Test Item Value Reference Range Interpretation Comments C3 COMPLEMENT (BEAKER) (test code = 81 mg/dL 82-193 L 393) COMPLEMENT COMPONENT [id number] 22:13:00 Test Item Value Reference Range Interpretation Comments C4 COMPLEMENT (BEAKER) (test code = 21 mg/dL 15-57 394) [id number] 22:11:00 Test Item Value Reference Range Interpretation Comments CREATININE (BEAKER) 3.45 mg/dL 0.57-1.25 H (test code = 358) EGFR (BEAKER) (test 13 mL/min/1.73 ESTIMA RYAN GFR IS code = 1092) sq m NOT ACCURATE CREATININE CLEARANCE IN PREDICTING GLOMERULAR FILTRATION RATE . ESTIMATED GFR I S NOT APPLICABLE FOR DIALYSIS PATIEN TS. POCT-GLUCOSE [id number] 21:35:00 Test Item Value Reference Range Interpretation Comments POC-GLUCOSE METER 244 mg/dL 70-[address] [facility] 6720 ([facility]) (test code = [place] 1538) [address] EOSINOPHIL SMEAR, [id number] 20:09:00 Test Item Value Reference Range Interpretation Comments EOSINOPHIL SMEAR, URINE (BEAKER) No EOS seen No EOS seen (test code = 1851) Many bacteria seen on stained smears.PROTEIN, RANDOM [id number] 19:59:00 Test Item Value Reference Range Interpretation Comments PROTEIN, URINE (BEAKER) (test code 265 mg/dL 0-14 H = 1569) PTH, [id number] 19:43:00 Test Item Value Reference Range Interpretation Comments PARATHYROID HORMONE INTACT 330.9 pg/mL 8.5-72.5 H (BEAKER) (test code = 577) URIC [id number] 19:36:00 Test Item Value Reference Range Interpretation Comments URIC ACID (BEAKER) (test code = 7.6 mg/dL 2.6-7.2 H 773) CHLORIDE, RANDOM [id number] 19:36:00 Test Item Value Reference Range Interpretation Comments CHLORIDE URINE (BEAKER) (test code = 29 meq/L 682) Reference Range: No NormalsCREATININE, RANDOM [id number] 19:36:00 Test Item Value Reference Range Interpretation Comments CREATININE URINE (BEAKER) (test 84.6 mg/dL code = 375) Reference Range: No NormalsPOTASSIUM, RANDOM [id number] 19:36:00 Test Item Value Reference Range Interpretation Comments POTASSIUM URINE (BEAKER) (test 14.7 meq/L code = 195) Reference Range: No NormalsSODIUM, RANDOM [id number] 19:36:00 Test Item Value Reference Range Interpretation Comments SODIUM URINE (BEAKER) (test code = 48 meq/L 243) Reference Range: No NormalsBODY FLUID CELL COUNT WITH [id number] 18:20:00 Test Item Value Reference Range Interpretation [...] code = 2873) LACTATE DEHYDROGENASE (LDH), BODY [id number] 17:26:00 Test Item Value Reference Range Interpretation [...] METER 148 mg/dL 70-110 H TESTED AT [place] [address] ([facility]) (test code = BRENDA Santiago [facility] 1538) [address] RAD, CHEST, 1 VIEW, NON [id number] 16:17:00Reason for exam:->s/p right thoracentesisShould this be [...] [place] Verified Date/Time: 08/21/2018 16:17:23 Reading Location: [facility] Radiology Reading Room -GLUCOSE [id number] 12:51:00 Test Item Value Reference Range Interpretation Comments POC-GLUCOSE METER 133 mg/dL 70-110 H TESTED AT [place] [address] ([facility]) (test code = [place] 1538) [address] TACROLIMUS [id number] 10:14:00 Test Item Value Reference Range Interpretation Comments TACROLIMUS BLOOD ([facility]) (test 7.6 ng/mL 10.0-20.0 L code = 657) Please draw 30 min prior to AM dose. Thanks!POCT-GLUCOSE [id number] 09:34:00 Test Item Value Reference Range Interpretation Comments POC-GLUCOSE METER 108 mg/dL 70-110 TESTED AT [place] [address] ([facility]) (test code = BRENDA Santiago [facility] 1538) [address] POCT-GLUCOSE [id number] 08:41:00 Test Item Value Reference Range Interpretation Comments POC-GLUCOSE METER 45 mg/dL 70-[address] [facility] 6720 (BEAKER) (test code = BRENDA Santiago [facility] [address] 1538) POCT-GLUCOSE [id number] 08:22:00 Test Item Value Reference Range Interpretation Comments POC-GLUCOSE METER 37 mg/dL 70-[address] [facility] 6720 (BEAKER) (test code = BRENDA Santiago [facility] [id number] 1538) COMPREHENSIVE METABOLIC [id number] 06:29:00 Test Item Value Reference Range Interpretation [...] S NOT APPLICABLE FOR DIALYSIS PATIEN TS. [id number] 06:18:00 Test Item Value Reference Range Interpretation [...] 0-0 (BEAKER) (test code = 413) POCT-GLUCOSE [id number] 21:32:00 Test Item Value Reference Range Interpretation Comments POC-GLUCOSE METER 197 mg/dL 70-[address] [facility] 6720 (BEAKER) (test code = LAWKANNAN MURRAY 1538) [address] PH, BODY [id number] 19:33:00 Test Item Value Reference Range Interpretation Comments PH, BODY FLUID (BEAKER) (test code = 7.75 1530) ALBUMIN, BODY [id number] 19:29:00 Test Item Value Reference Range Interpretation Comments ALBUMIN FLUID (BEAKER) (test code = 1.5 gm/dL 501) Reference Range: No Normals Assay performance has not been validated for this type of specimen.BODY FLUID CELL COUNT WITH [id number] 19:26:00 Test Item Value Reference Range Interpretation [...] code = 2873) LACTATE DEHYDROGENASE (LDH), BODY [id number] 19:22:00 Test Item Value Reference Range Interpretation [...] validated for this type of specimen.TRIGLYCERIDES, BODY [id number] 19:22:00 Test Item Value Reference Range Interpretation Comments TRIGLYCERIDES FLUID (BEAKER) (test 32 mg/dL code = 539) Reference Range: No Normals Assay performance has not been validated for this type of specimen.RAD, CHEST, 1 VIEW, NON [id number] 19:16:00Reason for exam:->left thoracentesisShould this be performed [...] MDReport Verified Date/Time: 08/20/2018 19:16:27 Reading Location: [facility] C013X Ortho Consult Reading Room U/S, [id number] 18:21:00Laterality?- >LeftReason for exam:->pleural effusionFINAL REPORT PROCEDURE: Ultrasound-guided thoracentesis INDICATION: 63-year-old woman with left pleural effusion. DESCRIPTION: After obtaining informed written consent, ultrasound scan showed pleural effusion on the left. The overlying skin was prepped and draped in the usual, sterile fashion and local 2% lidocaine anesthesia was administered. A 4 [place] catheter was advanced into the pleural cavity and 1200 cc of serous fluid was removed. The catheter was removed without immediate complication. Samples were sent for analysis. IMPRESSION:Uncomplicated ultrasound-guided left thoracentesis with 1200 cc fluid removed. Signed: Nida Sauceda MDReport Verified Date/Time: 08/20/2018 18:21:53 Reading Location: [facility] P006J Ultrasound Reading Room POCT-GLUCOSE [id number] 11:46:00 Test Item Value Reference Range Interpretation Comments POC-GLUCOSE METER 173 mg/dL 70-[address] [facility] 6720 ([facility]) (test code = [place] [facility] 1538) [address] [id number] 10:26:00 Test Item Value Reference Range Interpretation Comments PROTIME (BEAKER) (test code = 14.1 seconds 11.9-14.2 759) INR (BEAKER) (test code = 370) 1.2 <=5.9 PARTIAL THROMBOPLASTIN TIME 39.4 seconds 22.5-36.0 H (BEAKER) (test code = 760) Effective 08/20/2018: PT Reference Range ChangeNew: 11.9-14.2 Previous: 11.7- 14.7RECOMMENDED COUMADIN/WARFARIN INR THERAPY RANGESSTANDARD DOSE: 2.0-3.0 Includes: PROPHYLAXIS for venous thrombosis, systemic embolization; TREATMENT for venous thrombosis and/or pulmonary embolus.HIGH RISK: Target INR is2.5-3.5 for patients wiht mechanical heart valves.TACROLIMUS [id number] 10:20:00 Test Item Value Reference Range Interpretation Comments TACROLIMUS BLOOD (BEAKER) (test 7.2 ng/mL 10.0-20.0 L code = 657) Please draw 30 min prior to AM dose. Thanks!POCT-GLUCOSE [id number] 08:05:00 Test Item Value Reference Range Interpretation Comments POC-GLUCOSE METER 64 mg/dL 70-[address] [facility] 67[address] (BEAKER) (test code = [place] [address] 1538) CBC W/PLT COUNT & AUTO [id number] 07:03:00 Test Item Value Reference Range Interpretation [...] (BEAKER) (test code = 2801) BASIC METABOLIC [id number] 06:57:00 Test Item Value Reference Range Interpretation [...] S NOT APPLICABLE FOR DIALYSIS PATIEN TS. [id number] 06:44:00 Test Item Value Reference Range Interpretation Comments [facility] (test code = 2.5 mg/dL 1.6-2.6 627) POCT-GLUCOSE [id number] 22:17:00 Test Item Value Reference Range Interpretation Comments POC-GLUCOSE METER 131 mg/dL 70-110 H TESTED AT [place] [address] ([facility]) (test code = [facility] 1538) [address] POCT-GLUCOSE [id number] 16:56:00 Test Item Value Reference Range Interpretation Comments POC-GLUCOSE METER 124 mg/dL 70-110 H TESTED AT [place] [address] ([facility]) (test code = [facility] 1538) [address] POCT-GLUCOSE [id number] 13:01:00 Test Item Value Reference Range Interpretation Comments POC-GLUCOSE METER 101 mg/dL 70-110 TESTED AT [place] [address] ([facility]) (test code = [facility] 1538) [address] TACROLIMUS [id number] 08:59:00 Test Item Value Reference Range Interpretation Comments TACROLIMUS BLOOD ([facility]) (test 5.4 ng/mL 10.0-20.0 L code = 657) Please draw 30 min prior to AM dose. Thanks!POCT-GLUCOSE [id number] 08:57:00 Test Item Value Reference Range Interpretation Comments POC-GLUCOSE METER 125 mg/dL 70-110 H TESTED AT [place] [address] ([facility]) (test code = [facility] 1538) [address] POCT-GLUCOSE [id number] 08:30:00 Test Item Value Reference Range Interpretation Comments POC-GLUCOSE METER 48 mg/dL 70-110 L TESTED AT [place] [address] ([facility]) (test code = [facility] [address] 1538) COMPREHENSIVE METABOLIC [id number] 06:46:00 Test Item Value Reference Range Interpretation Comments TOTAL PROTEIN 6.8 gm/dL 6.0-8.3 (BEAKER) (test code = 770) ALBUMIN (BEAKER) 3.1 g/dL 3.5-5.0 L (test code = 1145) ALKALINE PHOSPHATASE 84 U/L 40-150 ([facility]) (test code = 346) BILIRUBIN TOTAL 0.7 [...] (BEAKER) (test code = 413) U/S, ABDOMINAL, [id number] 03:23:00Abdomen limited area? Add comment if clarification [...] moderate volume right pleural effusion. Signed: Aminata Fuentesort Verified Date/Time:08/19/2018 03:23:10 Reading Location: [address] Transitional Reading Room POCT-GLUCOSE [id number] 22:31:00 Test Item Value Reference Range Interpretation Comments POC-GLUCOSE METER 123 mg/dL 70-[address] [facility] 7[address] ([facility]) (test code = [place] 1538) [address] POCT-GLUCOSE [id number] 18:04:00 Test Item Value Reference Range Interpretation Comments POC-GLUCOSE METER 138 mg/dL 70-110 H TESTED AT [place] [address] ([facility]) (test code = BRENDA Santiago [facility] 1538) [address] RAD, CHEST, 2 [id number] 13:39:00Reason for exam:->bilateral effusions, dyspneaFINAL REPORT INDICATION: [...] Mclean Robert MDReport Verified Date/Time: 08/18/2018 13:39:03 Inoa morales Location: [address] Neuro Reading Room POCT-GLUCOSE [id number] 12:06:00 Test Item Value Reference Range Interpretation Comments POC-GLUCOSE METER 116 mg/dL 70-110 H TESTED AT [place] [address] ([facility]) (test code = BRENDA Santiago [facility] 1538) [address] TACROLIMUS [id number] 09:28:00 Test Item Value Reference Range Interpretation Comments TACROLIMUS BLOOD ([facility]) (test 5.1 ng/mL 10.0-20.0 L code = 657) Please draw 30 min prior to AM dose. Thanks!HEMOGLOBIN [id number] 08:28:00 Test Item Value Reference Range Interpretation Comments HEMOGLOBIN A1C ([facility]) (test code = 5.5 % 4.3-6.1 368) POCT-GLUCOSE [id number] 08:07:00 Test Item Value Reference Range Interpretation Comments POC-GLUCOSE METER 111 mg/dL 70-110 H TESTED AT [place] [address] ([facility]) (test code = BRENDA Santiago [facility] 1538) [address] COMPREHENSIVE METABOLIC [id number] 07:18:00 Test Item Value Reference Range Interpretation [...] 0-0 (BEAKER) (test code = 413) POCT-GLUCOSE [id number] 17:32:00 Test Item Value Reference Range Interpretation Comments POC-GLUCOSE METER 91 mg/dL 70-[address] [facility] 6720 ([facility]) (test code = BRENDA Santiago [facility] [address] 1538) CT, CHEST, WITHOUT [id number] 16:51:00FINAL REPORT INDICATION: Shortness of breath. COMPARISON:None. [...] MDReport Verified Date/Time: 08/17/2018 16:51:05 Reading Location: [facility] C013Y CT Body Reading Room -GLUCOSE [id number] 16:23:00 Test Item Value Reference Range Interpretation Comments POC-GLUCOSE METER 46 mg/dL 70-110 L TESTED AT [place] [address] (BEAKER) (test code = [facility] [address] 1538) B-TYPE NATRIURETIC FACTOR (BNP)2018-08-17 15:08:00 Test Item Value Reference Range Interpretation Comments B-TYPE NATRIURETIC PEPTIDE (BEAKER) 549 pg/mL 0-100 H (test code = 700) URINALYSIS WITH MICROSCOPIC IF [id number] 14:47:00 Test Item Value Reference Range Interpretation [...] 463) SOURCE(BEAKER) (test code = 2795) URINALYSIS [id number] 14:47:00 Test Item Value Reference Range Interpretation Comments RBC UA (BEAKER) (test code = 519) < /HPF WBC UA (BEAKER) (test code = 520) 1 /HPF SQUAMOUS EPITHELIAL (BEAKER) (test 1 /HPF code = 516) POCT-GLUCOSE [id number] 12:28:00 Test Item Value Reference Range Interpretation Comments POC-GLUCOSE METER 75 mg/dL 70-110 TESTED AT [place] [address] (BEAKER) (test code = [facility] [address] 1538) TACROLIMUS [id number] 09:04:00 Test Item Value Reference Range Interpretation Comments TACROLIMUS BLOOD (BEAKER) (test 6.2 ng/mL 10.0-20.0 L code = 657) POCT-GLUCOSE [id number] 08:53:00 Test Item Value Reference Range Interpretation Comments POC-GLUCOSE METER 87 mg/dL 70-[address] [facility] 67[address] (BEAKER) (test code = [place] [address] 1538) POCT-GLUCOSE [id number] 08:40:00 Test Item Value Reference Range Interpretation Comments POC-GLUCOSE METER 57 mg/dL 70-[address] [facility] 67[address] (BEAKER) (test code = [place] [address] 1538) B-TYPE NATRIURETIC FACTOR (BNP)2018-08-17 06:16:00 Test Item Value Reference Range Interpretation Comments B-TYPE NATRIURETIC PEPTIDE (BEAKER) 513 pg/mL 0-100 H (test code = 700) COMPREHENSIVE METABOLIC [id number] 06:16:00 Test Item Value Reference Range Interpretation [...] PATIEN TS. CBC W/PLT COUNT & AUTO [id number] 05:51:00 Test Item Value Reference Range Interpretation [...] ABSOLUTE COUNT 1.13 K/ L 1.18-3.74 L ([facility]) (test code = 414) MONOCYTES ABSOLUTE COUNT (BEAKER) 0.42 K/ L 0.24-0.36 H (test code = 415) EOSINOPHILS ABSOLUTE COUNT 0.07 K/ L 0.04-0.36 (AKER) (test code = 416) BASOPHILS ABSOLUTE COUNT (AKER) 0.02 K/ L 0.01-0.08 (test code = 417) IMMATURE GRANULOCYTES-RELATIVE 2 % 0-1 H PERCENT ([facility]) (test code = 2801) POCT-GLUCOSE [id number] 02:09:00 Test Item Value Reference Range Interpretation Comments POC-GLUCOSE METER 85 mg/dL 70-[address] [facility] 67[address] ([facility]) (test code = [place] [address] 1538) HEPATITIS C PCR, [id number] 13:59:00 Test Item Value Reference Range Interpretation Comments HCV RESULT COMPONENT HCV RNA not detected HCV RNA not detected ([facility]) (test code = 2699) This test uses a Real-Time Polymerase Chain Reaction (RT-PCR) methodology and was performed using LAZ Ampliprep/LAZ TaqMan HCV test kit version 2.0 ([employer]).Reportable range for this assay is 15 - 100,000,000 IU per mL (1.18 - 8.00 Log IU/mL).TACROLIMUS [id number] 13:46:00 Test Item Value Reference Range Interpretation Comments TACROLIMUS BLOOD ([facility]) (test 9.6 ng/mL 10.0-20.0 L code = 657) ALPHA FETOPROTEIN (AFP), TUMOR [id number] 13:23:00 Test Item Value Reference Range Interpretation Comments ALPHA-FETOPROTEIN ([facility]) (test code < ng/mL <10.0 = 1094) Effective 02/09/2014: Reference Range ChangeNew: <10.0 Previous: 0.0-8.0 [id number] 13:04:00 Test Item Value Reference Range Interpretation Comments PHOSPHORUS ([facility]) (test code = 4.5 mg/dL 2.3-4.7 604) [id number] 13:04:00 Test Item Value Reference Range Interpretation Comments MAGNESIUM (BEAKER) (test code = 2.3 mg/dL 1.6-2.6 627) COMPREHENSIVE METABOLIC [id number] 13:04:00 Test Item Value Reference Range Interpretation [...] NOT APPLICABLE FOR DIALYSIS PATIEN TS. LIPID [id number] 13:04:00 Test Item Value Reference Range Interpretation [...] Borderline 130-159 High 160-189 Very High >=190BILIRUBIN, [id number] 13:04:00 Test Item Value Reference Range Interpretation Comments BILIRUBIN DIRECT (BEAKER) (test 0.2 mg/dL 0.1-0.5 code = 706) CBC W/PLT COUNT & AUTO [id number] 12:37:00 Test Item Value Reference Range Interpretation [...] L 0.00-0.20 (test code = 417) 0.00POCT-GLUCOSE [id number] 13:29:00 Test Item Value Reference Range Interpretation Comments POC-GLUCOSE METER 77 mg/dL 70-110 TESTED AT [place] [address] ([facility]) (test code = [facility] [address] 1538) POCT-GLUCOSE [id number] 13:28:00 Test Item Value Reference Range Interpretation Comments POC-GLUCOSE METER 100 mg/dL 70-110 TESTED AT [place] [address] ([facility]) (test code = [facility] 1538) [address] POCT-GLUCOSE [id number] 12:04:00 Test Item Value Reference Range Interpretation Comments POC-GLUCOSE METER 69 mg/dL 70-110 L TESTED AT [place] [address] ([facility]) (test code = [facility] [address] 1538) CREATINE KINASE (CK), TOTAL AND [id number] 09:47:00 Test Item Value Reference Range Interpretation Comments CREATINE KINASE TOTAL ([facility]) 38 U/L 29-200 (test code = 380) CREATINE KINASE-MB ([facility]) (test 1.1 ng/mL 0.0-6.6 code = 750) CREATINE KINASE-MB INDEX ([facility]) 2.9 % (test code = 395) Effective 02/09/2014: CK-MB Reference Range ChangeNew: 0.0-6.6 Previous: 0.0-4.9CK-MB Reference Range:<6.7 Normal6.7-10.0 Borderline>10.0 AbnormalTACROLIMUS [id number] 09:04:00 Test Item Value Reference Range Interpretation Comments TACROLIMUS BLOOD (BEAKER) (test 9.5 ng/mL 10.0-20.0 L code = 657) TROPONIN [id number] 08:43:00 Test Item Value Reference Range Interpretation [...] acute neurological disease, and persistent tachyarrhythmia.HEPATIC FUNCTION [id number] 05:43:00 Test Item Value Reference Range Interpretation [...] = 10 U/L 6-55 347) BASIC METABOLIC [id number] 05:43:00 Test Item Value Reference Range Interpretation [...] PATIEN TS. CBC W/PLT COUNT & AUTO [id number] 05:33:00 Test Item Value Reference Range Interpretation [...] L 0.00-0.20 (test code = 417) 0.00TROPONIN [id number] 22:47:00 Test Item Value Reference Range Interpretation [...] acidosis, acute neurological disease, and persistent tachyarrhythmia.POCT-GLUCOSE [id number] 21:47:00 Test Item Value Reference Range Interpretation Comments POC-GLUCOSE METER 183 mg/dL 70-[address] [facility] 6720 ([facility]) (test code = [place] 1538) [address] CREATINE KINASE (CK), TOTAL AND [id number] 16:27:00 Test Item Value Reference Range Interpretation Comments CREATINE KINASE TOTAL (BEAKER) 36 U/L 29-200 (test code = 380) CREATINE KINASE-MB (BEAKER) (test 1.4 ng/mL 0.0-6.6 code = 750) CREATINE KINASE-MB INDEX (AKER) 3.9 % (test code = 395) Effective 02/09/2014: CK-MB Reference Range ChangeNew: 0.0-6.6 Previous: 0.0-4.9CK-MB Reference Range:<6.7 Normal6.7-10.0 Borderline>10.0 AbnormalTROPONIN [id number] 16:27:00 Test Item Value Reference Range Interpretation Comments TROPONIN I ([facility]) (test code = 397) < ng/mL 0.00-0.03 [...] acidosis, acute neurological disease, and persistent tachyarrhythmia.POCT-GLUCOSE [id number] 16:09:00 Test Item Value Reference Range Interpretation Comments POC-GLUCOSE METER 95 mg/dL 70-[address] [facility] 6720 ([facility]) (test code = [place] [address] 1538)
[2020-11-03] MEDS ORDERED: MORPHINE 4 MG/ML SYR ONE ×3 (15:55→20:41)
[2020-11-03] MEDS ORDERED: ONDANSETRON 4 MG/2 ML VIAL ONE ×3 (15:55→20:41)
[2020-11-03] MEDS ORDERED: PANTOPRAZOLE 40 MG INJ ONE (15:55)
--- NOTE | 2020-11-03 16:32 | RAD REPORT ---
EXAM DESCRIPTION: RAD - Chest Single View - 11/03/2020 4:01 pm CLINICAL HISTORY: ABDOMINAL DISTENTION COMPARISON: Two view chest September 22, CT chest October 27 TECHNIQUE: AP portable chest image was obtained 11/03/2020 4:01 pm . FINDINGS: Lung volumes are low. Left hemidiaphragm elevation along with loculated left base pleural fluid collection again noted. Interstitial markings are accentuated by very low lung volumes. This co uld mask interstitial edema or infiltrate. Trachea is midline. Heart and vasculature are normal. No p neumothorax or enlarging pleural fluid collection. No acute bony abnormality seen. No acute aortic fi ndings suspected. IMPRESSION: Very limited shallow inspiration exam showing prominent interstitial pattern due to low lung volume. Interstitial edema or infiltrate could be masked. Stable chronic loculated pleural effusion at the left base.
[2020-11-03 16:50] LABS: ALT/SGPT 18 U/L (12-78); AST/SGOT 19 U/L (15-37); Albumin 3.4 g/dL (3.4-5.0); Alkaline Phosphatase 111 U/L (45-117); BUN Blood Urea Nitrogen 44 mg/dL (7-18); Bicarbonate 26 mmol/L (21-32); Bilirubin Direct 0.2 mg/dL (0-0.2); Bilirubin Total 0.5 mg/dL (0.2-1.0); Glucose Level 170 mg/dL (74-106); Lipase 69 U/L (73-393); Magnesium 3.2 mg/dL (1.8-2.4); NT PRO-BNP 26327 pg/mL (<125); Potassium 3.7 mmol/L (3.5-5.1); Protein, Total 8.9 g/dL (6.4-8.2); Sodium Level 139 mmol/L (136-145); Troponin (Emerg Dept Use Only) < 0.02 ng/mL (0.0-0.045)
--- NOTE | 2020-11-03 19:10 | RAD REPORT ---
EXAM DESCRIPTION: CT - Abdomen Pelvis Wo Contrast - 11/03/2020 6:33 pm CLINICAL HISTORY: Abdominal distention;Abd pain COMPARISON: Abdomen Pelvis Wo Contrast dated 10/05/2020; Chest Single View dated 11/03/2020 TECHNIQUE: Axial [address] imaging of the abdomen and pelvis was performed without IV contrast. No IV contrast was given because of allergy, abnormal renal function, patient refusal or physician re quest. Oral contrast was administered. All CT scans are performed using dose optimization technique as appropriate and may include automated exposure control or mA/KV adjustment according to patient size. FINDINGS: Small to moderate right pleural effusion has not change from October 05 imaging. Loculated le ft pleural effusion with chronic lingula and left lower lobe atelectasis or consolidation again noted . No new lung base finding. No pericardial effusion seen. No lesion of the liver parenchyma identifiable. Parenchymal assessment is limited in the absence of I V contrast. The patient has developed extensive intrahepatic portal venous air involving the left lob e and anterior aspect of the right lobe. There is little if any identifiable air in the main portal v ein. No pancreatic or splenic abnormality seen. Gallbladder is absent. No abnormal biliary tree dilatation . No hydronephrosis or suspicious renal mass. Prominent arterial tree calcifications are present. No si gnificant adrenal finding. Isodense renal masses and pyelonephritis cannot be excluded in the absence of IV contrast. Air is present within the lumen of the urinary bladder presumed to be from a cathete rization procedure. No air in the wall of the bladder and no bladder calculi seen. No uterine abnorma lity. Ovaries are atrophic or absent. Ovaries may be obscured by adjacent on opacified bowel. Small to moderate size hiatal hernia is present. Contrast is present in the distal esophagus likely f rom reflux. No gastric dilatation or gastric wall thickening. No dilated small bowel loops. There are areas of fecalized small bowel content. Hartman of the small bowel are not thickened or edematous. No small bowel pneumatosis. There is pneumatosis intestinalis of the right-side colon from tip of the ce cum to the hepatic flexure. The appendix is normal. The hartman of the right-side colon are not thicken ed or edematous. There is an overall -is distention throughout the colon sparing the rectosigmoid col on. Sigmoid diverticulosis is present. A few punctate areas of free intraperitoneal air are noted. Patient has dense calcifications of the a rterial tree. Small quantity free fluid collects in dependent portion of the pelvis. No abscess is i dentified. No bulky lymphadenopathy. A 4 centimeter fat only umbilical hernia present. Prominent disc and bone degenerative changes are present. Fluid retention seen in the subcutaneous fatty tissues. Findings telephoned to the ordering clinician 7:06 p[address] IMPRESSION: CT is grossly abnormal with extensive intrahepatic portal venous air, intraperitoneal fr ee air and pneumatosis intestinalis of the right-side colon. A specific mass or site of perspiration is not identified. Ischemic bowel is certainly a consideratio n though bowel wall thickening or edema are not seen. Patient has prominent aortoiliac and mesenteric arterial calcification. Small amount of free intraperitoneal fluid collecting in the dependent portion of the pelvis. No abscess or extravasation of bowel content identifiable. Loculated left base pleural effusion and small to moderate right pleural effusion similar to comparis on. Full assessment is limited is the absence of IV contrast.
--- NOTE | 2020-11-03 19:24 | ER ---
Nurse's Notes [facility] Name: Lisa Ko Age: 65 yrs Sex: Female : 1955 Arrival Date: 11/03/2020 Time: 14:42 Bed 27 Private MD: Diagnosis: Pneumatosis Intestinalis of Right Side Colon;Nausea with vomiting, unspecified Presentation: 11/03 15:06 Chief complaint: Patient states: N/V and lower abdominal pain since this morning, jl7 coffee ground emesis noted in emesis bag in triage, reports most of the pain the RLQ. Coronavirus screen: Client denies travel out of the [place] in the last 14 days. nausea, vomiting. Client presents with at least one sign or symptom that may indicate coronavirus-19. Standard/surgical mask placed on the client. Provider contacted for isolation considerations. Ebola Screen: No symptoms or risks identified at this time. Initial Sepsis Screen: Does the patient meet any 2 criteria? No. Patient's initial sepsis screen is negative. Does the patient have a suspected source of infection? No. Patient's initial sepsis screen is negative. Risk Assessment: Do you want to hurt yourself or someone else? Patient reports no desire to harm self or others. Onset of symptoms was November 03, 2020. Care prior to arrival: None. 15:06 Method Of Arrival: Wheelchair [facility] 15:06 Acuity: VANDA 2 jl7 Triage Assessment: 17:27 GI: Reports lower abdominal pain, upper abdominal pain, bloating, constipation, nausea, zb vomiting. Historical: - Allergies: 15:08 Codeine; jl7 15:08 Levaquin (rash); jl7 - PMHx: 15:08 Diabetes - IDDM; Dialysis-M/W/F; HD; Hypertension; liver cancer; liver transplant; jl7 neuropathy; TIA; - Immunization history:: Client reports receiving the 2nd dose of the Covid vaccine. - Social history:: Smoking status: unknown. Screenin:22 Abuse screen: Denies threats or abuse. Denies injuries from another. Nutritional zb screening: Has had N/V for 3 or more days. Tuberculosis screening: No symptoms or risk factors identified. Fall Risk None identified. Assessment: 17:23 General: Appears uncomfortable, Behavior is cooperative, anxious, Reports feeling ill zb for > 3 days. Pain: Complains of pain in left lower quadrant and right lower quadrant Quality of pain is described as heavy, pressure, Pain began a couple of weeks. Neuro: Level of Consciousness is awake, alert, obeys commands, Oriented to person, place, time, situation, [employer] are equal bilaterally Moves all extremities. Full function. Respiratory: Airway is patent Respiratory effort is even, unlabored, Respiratory pattern is regular, symmetrical. GI: Abdomen is round distended, Last BM was October 30, 2020. Bowel sounds Abdomen is tender to palpation in suprapubic area and right lower quadrant Guarding noted in right lower quadrant Reports lower abdominal pain, bloating, constipation, nausea, vomiting. Derm: Skin is fragile, is thin, with poor turgor. Musculoskeletal: Range of motion: intact in all extremities. 18:00 Reassessment: Patient appears in no apparent distress at this time. Patient and/or zb family updated on plan of care and expected duration. Pain level reassessed. Patient is alert, oriented x 3, equal unlabored respirations, skin warm/dry/pink. notifed ecp patient unable to take pain medication patient. take to CT without contrast per ECP. 19:00 Reassessment: Patient appears in no apparent distress at this time. Patient and/or zb family updated on plan of care and expected duration. Pain level reassessed. Patient is alert, oriented x 3, equal unlabored respirations, skin warm/dry/pink. attempted to get a urine patient unable to urinated at this time. notified ecp. 20:10 Reassessment: Patient appears in no apparent distress at this time. Patient and/or ld1 family updated on plan of care and expected duration. Pain level reassessed. Patient is alert, oriented x 3, equal unlabored respirations, skin warm/dry/pink. Pt reporting ABD pain 8/10. Notified ERP. See MAR for orders. 21:30 Reassessment: Patient appears in no apparent distress at this time. Patient and/or ld1 family updated on plan of care and expected duration. Pain level reassessed. 22:15 Reassessment: Patient appears in no apparent distress at this time. Pt reporting pain ld1 level 7/10. Notified ERP. See MAR for orders. Vital Signs: 15:06 BP 181 / 79; Pulse 73; Resp 19; Temp 97.8; Pulse Ox 95% ; Weight 81.65 kg; Pain 10/10; jl7 16:15 BP 197 / 78; Pulse 75; Resp 18; Pulse Ox 97% on R/A; ap3 17:21 BP 180 / 63; Pulse 74; Resp 16; Pulse Ox 96% on R/A; zb 20:10 BP 172 / 72; Pulse 72; Resp 17; Pulse Ox 94% on R/A; Pain 8/10; ld1 21:15 BP 178 / 77; Pulse 75; Resp 18; Pulse Ox 95% on R/A; ld1 22:00 BP 170 / 68; Pulse 72; Resp 17; Pulse Ox 96% on R/A; ld1 22:50 BP 168 / 74; Pulse 76; Resp 16; Pulse Ox 95% on R/A; ld1 ED Course: 14:42 Patient arrived in ED. as 15:08 Triage completed. jl7 15:08 Arm band placed on right wrist. jl7 15:10 Gatito Kaur PA is PHCP. cp 15:10 Luis Mai MD is Attending Physician. cp 15:29 Monika Ramirez RN is Primary Nurse. zb 15:45 Missed attempt(s): 20 gauge in right 22 gauge in left hand. zb 16:01 XRAY Chest (1 view) In Process Unspecified. EDMS 16:06 Inserted saline lock: 22 gauge in right antecubital area, using aseptic technique. ap3 Blood collected. 17:25 Patient has correct armband on for positive identification. Bed in low position. Call zb light in reach. Adult w/ patient. Pulse ox on. NIBP on. Door closed. Noise minimized. 18:33 Abdomen In Process Unspecified. EDMS 19:36 Initiated transfer at [facility] with Lucinda Oliveira. Stated she would work on the tt3 request and call back. Information passed on to MARIUSZ Keen, provider of pt. 20:00 Lucinda Oliveira called back with Dr. Morris for consultation with MARIUSZ Keen, tt3 regarding the transfer request. 21:11 [facility] Transfer Center called back to speak with MARIUSZ Keen, pt provider tt3 regarding the transfer request. 21:27 Lucinda Oliveira called and gave ROSALBA Herr, RN, Charge Nurse admin approval. The tt3 accepting physician is Dr. Harris. The pt is going to [facility] to room 1511. Nurse to call report to . Face sheet, covid results and MOT to be faxed to per Lucinda's request. 22:53 No provider procedures requiring assistance completed. Patient transferred, IV remains ld1 in place. Administered Medications: 16:14 Drug: ProTONIX (pantoprazole) 40 mg Route: IVP; Site: right antecubital; ap3 16:42 Follow up: Response: No adverse reaction; No change in condition; RASS: Alert and Calm zb (0) 16:15 Drug: morphine 4 mg Route: IVP; Site: right antecubital; ap3 16:42 Follow up: Response: No adverse reaction; Pain is decreased; Nausea is decreased; RASS: zb Alert and Calm (0) 16:15 Drug: Zofran (Ondansetron) 4 mg Route: IVP; Site: right antecubital; ap3 16:42 Follow up: Response: No adverse reaction; No change in condition; RASS: Alert and Calm zb (0) 17:20 Drug: Zofran (Ondansetron) 4 mg Route: IVP; Site: right antecubital; zb 17:20 Drug: morphine 4 mg {Note: RASS +0.} Route: IVP; Site: right antecubital; zb 19:59 Drug: Zosyn (piperacillin-tazobactam) 3.375 grams Route: IVPB; Infused Over: 60 mins; ld1 Site: right antecubital; 20:30 Follow up: Response: No adverse reaction; IV Status: Completed infusion; IV Intake: ld1 100ml 19:59 Drug: NS 0.9% 250 ml Route: IV; Rate: bolus; Site: right antecubital; ld1 20:22 Follow up: Response: No adverse reaction; IV Status: Completed infusion; IV Intake: ld1 250ml 20:22 Drug: morphine 4 mg Route: IVP; Site: right antecubital; ld1 21:31 Follow up: Response: No adverse reaction ld1 20:22 Drug: Zofran (Ondansetron) 4 mg Route: IVP; Site: right antecubital; ld1 21:31 Follow up: Response: No adverse reaction ld1 20:30 Drug: vancoMYCIN 1 grams Route: IVPB; Infused Over: 2 hrs; Site: right antecubital; ld1 22:30 Follow up: Response: No adverse reaction; IV Status: Completed infusion; IV Intake: ld1 250ml 21:29 Drug: Dilaudid (HYDROmorphone) 1 mg Route: IVP; Site: right antecubital; ld1 21:31 Follow up: Response: No adverse reaction ld1 Intake: 20:22 IV: 250ml; Total: 250ml. ld1 20:30 IV: 100ml; Total: 350ml. ld1 22:30 IV: 250ml; Total: 600ml. ld1 Outcome: 19:23 ER care complete, transfer ordered by . cp 22:53 Transferred by ground EMS to [facility]. ld1 22:53 Condition: stable 22:53 Instructed on the need for transfer. 22:54 Patient left the ED. ld1 Signatures: Dispatcher [employer] EDMS Rosailnda Rubi Corey, PA PA cp Leal, Jahala RN RN jl7 Madina Mccullough RN RN olga3 Thony Horton tt3 Monika Ramirez RN RN zb Dibbern, Lauren, RN RN ld1 Corrections: (The following items were deleted from the chart) 17:28 17:23 GI: Abdomen is round distended, Last BM was October 30, 2020. Bowel sounds Abdomen zb is tender to palpation in suprapubic area and right lower quadrant Guarding noted in right lower quadrant zb
--- NOTE | 2020-11-03 19:24 | EDPHYS ---
Physician Documentation [facility] Name: Lisa Ko Age: 65 yrs Sex: Female : 1955 Arrival Date: 11/03/2020 Time: 14:42 Bed 27 Private MD: ED Physician Luis Mai HPI: 11/03 15:30 This 65 yrs old Female presents to ER via Wheelchair with complaints of cp Vomiting, Abdominal Pain. 15:30 The patient presents to the emergency department with nausea, with "dry heaves", cp vomiting, that is continuous, described as dark brown, abdominal pain, of the right lower quadrant and left lower quadrant, described as constant. Onset: The symptoms/episode began/occurred this morning. Possible causes: unknown. Associated signs and symptoms: Pertinent positives: constipation, Pertinent negatives: fever, GI bleeding. Severity of symptoms: in the emergency department the symptoms are unchanged despite home interventions. 15:30 Reports history of liver transplant due to hepatitis C in 2014. Patient receives cp dialysis Saturday and was last dialyzed yesterday. Patient reports abdominal pain started this morning and vomiting started prior to arrival to ER. Nurse reports coffee-ground emesis. Historical: - Allergies: 15:08 Codeine; jl7 15:08 Levaquin (rash); jl7 - PMHx: 15:08 Diabetes - IDDM; Dialysis-M/W/F; HD; Hypertension; liver cancer; liver transplant; jl7 neuropathy; TIA; - Immunization history:: Client reports receiving the 2nd dose of the Covid vaccine. - Social history:: Smoking status: unknown. ROS: 15:31 Eyes: Negative for injury, pain, redness, and discharge. cp 15:31 Constitutional: Positive for poor PO intake, Negative for body aches, chills, fever. 15:31 ENT: Negative for ear pain, sore throat, difficulty swallowing, difficulty handling secretions. 15:31 Cardiovascular: Negative for chest pain, edema, palpitations. 15:31 Respiratory: Negative for cough, shortness of breath, wheezing. 15:31 Abdomen/GI: Positive for abdominal pain, nausea and vomiting, constipation, abdominal distension, Negative for diarrhea, hematemesis, black/tarry stool, rectal bleeding. 15:31 Back: Negative for radiated pain. 15:31 Skin: Negative for cellulitis, rash. 15:31 Neuro: Negative for altered mental status, headache, weakness. 15:31 All other systems are negative. Exam: 15:35 Head/Face: Normocephalic, atraumatic. cp 15:35 Constitutional: The patient appears alert, awake, non-diaphoretic, non-toxic, well developed, well nourished, in obvious pain. 15:35 Eyes: Periorbital structures: appear normal, Conjunctiva: normal, no exudate, no cp injection, Sclera: no appreciated abnormality, Lids and lashes: appear normal, bilaterally. 15:35 ENT: External ear(s): are unremarkable, Nose: is normal, Mouth: Lips: moist, Oral cp mucosa: moist, Posterior pharynx: Airway: no evidence of obstruction, patent. 15:35 Neck: ROM/movement: is normal, is supple, without pain, no range of motions limitations. 15:35 Chest/axilla: Inspection: normal, Palpation: is normal, no crepitus, no tenderness. 15:35 Cardiovascular: Rate: normal, Rhythm: regular, Edema: is not appreciated, JVD: is not appreciated. 15:35 Respiratory: the patient does not display signs of respiratory distress, Respirations: normal, no use of accessory muscles, no retractions, labored breathing, is not present, Breath sounds: are clear throughout, no decreased breath sounds, no stridor, no wheezing. 15:35 Abdomen/GI: Inspection: distension, that is moderate, in the abdomen diffusely, Bowel sounds: active, all quadrants, Palpation: soft, in all quadrants, severe abdominal tenderness, in the right lower quadrant and left lower quadrant, rebound tenderness, is not appreciated, voluntary guarding, is elicited in the abdomen diffusely. 15:35 Back: pain, is absent, ROM is normal. 15:35 Neuro: Orientation: to person, place \\T\\ time. Mentation: is normal. 16:39 ECG was reviewed by the Attending Physician. cp Vital Signs: 15:06 BP 181 / 79; Pulse 73; Resp 19; Temp 97.8; Pulse Ox 95% ; Weight 81.65 kg; Pain 10/10; jl7 16:15 BP 197 / 78; Pulse 75; Resp 18; Pulse Ox 97% on R/A; ap3 17:21 BP 180 / 63; Pulse 74; Resp 16; Pulse Ox 96% on R/A; zb 20:10 BP 172 / 72; Pulse 72; Resp 17; Pulse Ox 94% on R/A; Pain 8/10; ld1 21:15 BP 178 / 77; Pulse 75; Resp 18; Pulse Ox 95% on R/A; ld1 22:00 BP 170 / 68; Pulse 72; Resp 17; Pulse Ox 96% on R/A; ld1 22:50 BP 168 / 74; Pulse 76; Resp 16; Pulse Ox 95% on R/A; ld1 MDM: 15:16 Patient medically screened. cp 16:00 Differential diagnosis: gastritis, appendicitis, viral gastroenteritis, bowel cp obstruction, bowel perforation, mesenteric ischemia. 19:20 Data reviewed: vital signs, nurses notes, lab test result(s), EKG, radiologic studies, cp CT scan, plain films. 19:20 Test interpretation: by ED physician or midlevel provider: ECG, plain radiologic cp studies. 20:20 Physician consultation: was contacted at 20:15, regarding regarding transfer, to [facility]. patient's condition, accepting physician will be DR Harris, hospitalist. 11/03 15:19 Order name: Basic Metabolic Panel; Complete Time: 17:30 cp 08/ 17:30 Interpretation: Normal except: GLUC 170; BUN 44; CRE 3.67; GFR 12. cp / 15:19 Order name: CBC with Diff; Complete Time: 21:12 cp / 15:19 Order name: LFT's; Complete Time: 17:30 / 17:31 Interpretation: Normal except: TP 8.9; GLOB 5.5; A/G 0.6. / 15:19 Order name: Magnesium; Complete Time: 17:30 cp 08/12 18:31 Interpretation: Abnormal: MG 3.2. cp / 15:19 Order name: NT PRO-BNP; Complete Time: 17:30 cp / 17:31 Interpretation: Abnormal: NT PRO-BNP 47702. / 15:19 Order name: Troponin (emerg Dept Use Only); Complete Time: 17:30 cp / 15:19 Order name: Lactate; Complete Time: 21:12 cp / 15:19 Order name: Lipase; Complete Time: 17:30 cp 08/ 17:17 Order name: SARS-COV-2 RT PCR; Complete Time: 17:30 EDID 11/03 21:16 Interpretation: Results reviewed. 08 19:17 Order name: Procalcitonin 08 19:17 Order name: Blood Culture Adult (2) 08/ 15:19 Order name: XRAY Chest (1 view); Complete Time: 16:50 11/03 16:50 Interpretation: Report reviewed. 11/03 17:19 Order name: Abdomen ; Complete Time: 19:15 EDID 08/ 19:17 Order name: Procalcitonin; Complete Time: 21:12 EDMS / 19:17 Order name: Blood Culture EDID 11/03 21:04 Order name: CBC Smear Scan EDID 11/03 15:19 Order name: EKG; Complete Time: 15:19 / 15:19 Order name: Cardiac monitoring; Complete Time: 17:29 11/03 15:19 Order name: EKG - Nurse/Tech; Complete Time: 17:30 11/03 15:19 Order name: IV Saline Lock; Complete Time: 16:07 11/03 15:19 Order name: Labs collected and sent; Complete Time: 17:30 11/03 15:19 Order name: O2 Per Protocol; Complete Time: 16:07 11/03 15:19 Order name: O2 Sat Monitoring; Complete Time: 16:07 11/03 15:19 Order name: Urine Dipstick-Ancillary (obtain specimen); Complete Time: 19:23 cp EC:39 Rate is 72 beats/min. Rhythm is regular. IA interval is prolonged at 218 msec. QRS cp interval is prolonged at 108 msec. QT interval is prolonged at 456 msec. T waves are Inverted in leads aVL, aVR. Interpreted by me. Reviewed by me. Administered Medications: 16:14 Drug: ProTONIX (pantoprazole) 40 mg Route: IVP; Site: right antecubital; ap3 16:42 Follow up: Response: No adverse reaction; No change in condition; RASS: Alert and Calm zb (0) 16:15 Drug: morphine 4 mg Route: IVP; Site: right antecubital; ap3 16:42 Follow up: Response: No adverse reaction; Pain is decreased; Nausea is decreased; RASS: zb Alert and Calm (0) 16:15 Drug: Zofran (Ondansetron) 4 mg Route: IVP; Site: right antecubital; ap3 16:42 Follow up: Response: No adverse reaction; No change in condition; RASS: Alert and Calm zb (0) 17:20 Drug: Zofran (Ondansetron) 4 mg Route: IVP; Site: right antecubital; zb 17:20 Drug: morphine 4 mg {Note: RASS +0.} Route: IVP; Site: right antecubital; zb 19:59 Drug: Zosyn (piperacillin-tazobactam) 3.375 grams Route: IVPB; Infused Over: 60 mins; ld1 Site: right antecubital; 20:30 Follow up: Response: No adverse reaction; IV Status: Completed infusion; IV Intake: ld1 100ml 19:59 Drug: NS 0.9% 250 ml Route: IV; Rate: bolus; Site: right antecubital; ld1 20:22 Follow up: Response: No adverse reaction; IV Status: Completed infusion; IV Intake: ld1 250ml 20:22 Drug: morphine 4 mg Route: IVP; Site: right antecubital; ld1 21:31 Follow up: Response: No adverse reaction ld1 20:22 Drug: Zofran (Ondansetron) 4 mg Route: IVP; Site: right antecubital; ld1 21:31 Follow up: Response: No adverse reaction ld1 20:30 Drug: vancoMYCIN 1 grams Route: IVPB; Infused Over: 2 hrs; Site: right antecubital; ld1 22:30 Follow up: Response: No adverse reaction; IV Status: Completed infusion; IV Intake: ld1 250ml 21:29 Drug: Dilaudid (HYDROmorphone) 1 mg Route: IVP; Site: right antecubital; ld1 21:31 Follow up: Response: No adverse reaction ld1 Disposition: 11/04 07:50 Co-signature as Attending Physician, Luis Mai MD I agree with the assessment and kdr plan of care. Disposition Summary: 11/03/20 19:23 Transfer Ordered Transfer Location: [facility] cp Reason: Higher level of care cp Condition: Fair cp Problem: new cp Symptoms: have improved cp Accepting Physician: DR Harris(11/03/20 22:54) ld1 Diagnosis - Pneumatosis Intestinalis of Right Side Colon cp - Nausea with vomiting, unspecified cp Forms: - Medication Reconciliation Form cp - SBAR form cp Signatures: Dispatcher [employer] EDMS Luis Mai MD MD kdr Gatito Kaur, PA PA cp Dorie Simpson, RN RN jl7 Madina Mccullough RN RN olga3 Monika Ramirez RN RN zb Dibbern, Lauren RN RN ld1 Corrections: (The following items were deleted from the chart) 11/03 15:58 15:32 Constitutional: The patient appears alert, awake, non-diaphoretic, non-toxic, cp well developed, well nourished, in obvious pain, cp 15:58 15:32 Head/Face: Normocephalic, atraumatic. cp cp 16:15 15:20 CORONAVIRUS+MR.LAB.BRZ ordered. EDMS EDMS 17:19 16:22 Abdomen Pelvis W Con+CT.RAD.BRZ ordered. EDMS EDMS 21:21 19:23 Doctor cp cp 22:54 21:21 DR Harris cp ld1
[2020-11-03] MEDS ORDERED: NA CHLORIDE 0.9% 250 ML ONE ×2 (20:04→20:56)
[2020-11-03] MEDS ORDERED: PIPER/TAZO/NS 3.375gm 3.375 GM/100 ML BAG ONE (20:05)
[2020-11-03 20:20] LABS: Absolute Lymphocytes (CBC) 0.3 K/uL (0.7-4.9); Basophils % 0.3 % (0-1.3); Lymphocytes % 4.6 % (15.3-44.8); MPV 6.8 fL (7.6-11.3); RBC Red Blood Cell Count 4.83 M/uL (3.86-4.86)
[2020-11-03] MEDS ORDERED: VANCOMYCIN 1 GM/VIAL ONE (20:55)
[2020-11-03 21:04] LABS: Blood Morphology Comment NOT SEEN (NOT SEEN); Platelet Estimate ADEQ; White Blood Cell Scan OK (OK)
[2020-11-03] MEDS ORDERED: HYDROMORPHONE HCL 1 MG/ML INJ ONE (21:49)
[2020-11-03 23:52] VITALS: TEMP 97.8
[2020-11-04 00:31] VITALS: BP 168/74; O2SAT 95
== END 2020-11-03 22:54 | disposition short-term general hospital (02) ==
LOC: ER 14:41
DX: K63.89 Other specified diseases of intestine (principal); I10 Essential (primary) hypertension; Z88.1 Allergy status to other antibiotic agents; Z88.5 Allergy status to narcotic agent; Z94.4 Liver transplant status; Z20.822 Contact with and (suspected) exposure to COVID-19
CPT/HCPCS: 96365; 96367; 96368; 93005; 87040 ×2; 85025; 80048; 36415; 83735; 80076; 83605; 84484; 83690; 84145; 83880; 74176; 71045; 96375; 99285; 96366; U0003; C9113; J3370; J2543; J1170; J7050 ×2; J2405 ×3

== ENCOUNTER 2020-11-29 15:05 | Inpatient (IN) | payer OTHER ==
--- OUTSIDE RECORDS SUMMARY | 2020-11-29 15:20 | XMS REPORT | Continuity of Care Document ---
:1955 Author Organization [facility] t Address [address] [place] [address] Care Team Providers Name Role Phone [facility] Dangelo Canseco MD Attending Clinician Milton SPENCE Attending Clinician Unavailable Charles VALLADARES Attending Clinician Unavailable Saleem Dan Attending Clinician Unavailable Lebron SPENCE Attending Clinician Unavailable Debra Mackay MD Attending Clinician Venita PHELAN Attending Clinician Mateo Munson MD Attending Clinician Ambrosio Huerta MD Attending Clinician Twila PHELAN RSiomara Attending Clinician Merchant PHELAN Attending Clinician Cholo Segal MD Attending Clinician Domenico Attending Clinician Unavailable Gilda PHELAN Attending Clinician Edilson PHELAN Attending Clinician Catarina Kraus CRNA Attending Clinician DEBRA MACKAY Attending Clinician Unavailable Krista VALLADARES, P Attending Clinician Unavailable Wyatt PHELAN, Y.H. Attending Clinician Claudio RN, N Attending Clinician Unavailable Chet Attending Clinician Unavailable Jina VALLADARES Attending Clinician Unavailable Hadley VALLADARES, Y Attending Clinician Unavailable Tru VALLADARES Attending Clinician Unavailable Irvin Tinoco MD Attending Clinician Mega Douglas MD Attending Clinician PEYMAN SHAH Attending Clinician Unavailable IRVIN TINOCO Attending Clinician Unavailable Renato GARCIA Attending Clinician Unavailable GHAZALA RODRIGUES Attending Clinician Unavailable MEGA DOUGLAS Attending Clinician Unavailable Coni RAMIREZ Attending Clinician Unavailable Cholo SEGAL Admitting Clinician Unavailable PEYMAN SHAH Admitting Clinician Unavailable Renato GARCIA Admitting Clinician Unavailable GHAZALA RODRIGUES Admitting Clinician Unavailable Coni RAMIREZ Admitting Clinician Unavailable Payers Payer Name Policy Type Policy Number Effective Date Expiration Date S ource Problems Condition Condition Condition Status Onset Resolution Last Treating Co mments Source Name Details Category Date Date Treatment Clinician Date 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 St effusion effusion 6 [facility] - 00:00: Medical 00 Center Acute on Acute on Disease Active [facility] chronic chronic 6 [facility] - renal renal 00:00: Medical failure failure 00 Center Normochrom Normochrom Disease Active [facility] ic ic 6 [facility] - normocytic normocytic 00:00: Me dical anemia anemia 00 Center KRISTIAN (acute KRISTIAN (acute Disease Active [facility] St kidney kidney 08-17 [facility] - injury) injury) 00:00: Medical 00 Center Chest pain Chest pain Disease Active [facility] 5-17 [facility] - 00:00: Medical 00 Center Immunosupp Immunosupp Disease Active Last [facility] ression ression - Assessmen [facility] - 00:00: t & Plan: Medical 00 On Center prograf maintenan ce- will adjust according to level. CKD CKD Disease Active Last [facility] St (chronic (chronic 10-18 Assessmen [place] es [...] labs pending. Liver Liver Disease Active Last [facility] St replaced replaced 09-30 Assessmen [place] es - by by 00:00: t & Plan: Medical transplant transplant 00 Excellent Center graft function. 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 St diabetes diabetes 9-25 Assessmen [place] es - mellitus mellitus 00:00: t & Plan: Med ical with with 00 Blood Center diabetic diabetic sugars polyneurop polyneurop controlle athy, with athy, with d. long-term long-term current current use of use of insulin insulin Obesity Obesity Disease Active Last [facility] (BMI (BMI 9-25 Assessmen [facility] - 30-39.9) 30-39.9) 00:00: t & Plan: Med ical 00 Patient Center has not yet started to diet. Patient uses a walker but seems motivated to make changes. States she has lost 45 pounds in anticipat ion of transplan t. Lipid profile looks good on last lab draw. Portal Portal Disease Active Last [facility] hypertensi hypertensi 10-29 Ass[facility]men [facility] - on on 00:00: t & Plan: Medical 00 Manifeste Center d by ugo tom. HCC HCC Disease Active Last [facility] (hepatocel (hepatocel 10-29 Assessmen [facility] - lular lular 00:00: t & Plan: Medical carcinoma) carcinoma) 00 2 foci of Center HCC without lymphovas cular invasion. Continue with HCC surveilla nce using cross-sec tional imaging. Hepatitis Hepatitis Disease Active Last [facility] C, C, 10-29 Assessmen [facility] - genotype genotype 00:00: t & Plan: Med ical 3a 3a 00 Patient Center is s/p liver transplan t. Is being followed by hepatolog y. Immunity Immunity Disease Active Last [facility] status status 10-29 Ass[facility]men [facility] - testing testing 00:00: t & Plan: [...] Disease Active C [facility] (BMI (BMI [facility] - 25.0-29.9) 25.0-29.9) [facility]abolic Metabolic Disease Active [facility] syndrome syndrome [facility] ESRD (end ESRD (end Disease Active [facility] stage stage [facility] - renal renal Medical disease) disease) Center ESRD on ESRD on Disease Active [facility] hemodialys hemodialys [facility] Allergies, Adverse Reactions, Alerts Allergy Allergy Status Severity Reaction(s) Onset Inactive Treating Comm ents Source Name Type Date Date Clinician Levoflox Propensi Active Rash Method i acin ty to 11-20 adverse 00:00: Hospita reaction 00 l s to drug Codeine Propensi Active Itching Method i ty to 11-13 adverse 00:00: Hospita reaction 00 l s to drug Levoflox Propensi Active Itching Itching,r [facility] acin ty to 09-30 [facility] - adverse 00:00: burning Medical reaction 00 on the [facility] s site only. Codeine Drug Active Rash [facility] St Allergy 10-29 [facility] - 00:00: Medical 00 [facility] Family History Family Member Diagnosis Comments Start Date Stop Date Source Natural mother Stroke [facility] Natural sister Cancer [facility] Social History Social Habit Start Date Stop Date Quantity Comments Source History of tobacco Current smoker [facility] Sex [facility]igned At [facility] Exposure to Not sure [facility] - SARS-CoV-2 (event) [facility] Cigarettes smoked 2020-11-08 2020-11-08 MITZI Berkowitz - current (pack per 00:00:00 00:00:00 [facility] day) - Reported Cigarette 2020-11-08 2020-11-08 MITZI Berkowitz - pack-years 00:00:00 00:00:00 [facility] Tobacco use and 2020-11-08 2020-11-08 Never used MITZI Dumont - exposure 00:00:00 00:00:00 [facility] Alcohol intake 2020-11-08 2020-11-[address] [facility] Culver es - 00:00:00 00:00:00 non-drinker of Medical nter alcohol (finding) Alcohol Comment 2016-08-08 2016-08-08 1 drink/ 2 MITZI Dumont - 00:00:00 00:00:00 months [facility] Smoking Status Start Date Stop Date Source Former smoker 2020-11-08 00:00:00 2020-11-08 00:00:[address] [facility] Monge ukes - [facility] Medications Ordered Filled Start Stop Current Ordering Indication Dosage Frequency Signature Comments Components Source Medication Medication Date Date Medication? Clinician (SIG) Name Name ferric Yes Take by [facility] citrate 11-[address] (Auryxia) 18:44: Hospita 210 mg iron 21 l tablet clopidogreL Yes 75mg QD Take 75 mg [facility] (PLAVIX) 75 11-[address] mg tablet 18:44: daily. Hospit a 21 l lisinopriL Yes 10mg QD Take 10 mg M ethodi (PRINIVIL) 11-[address] 10 mg 18:44: daily. Hospita tablet 21 l atorvastati Yes 40mg QD Take 40 mg Methodi n (LIPITOR) 11-[address] 40 MG 20:08: daily. Hospita tablet 38 l LANTUS Yes 15U QD Inject 15 Method i SOLOSTAR 11-[address] U-100 20:08: under the Hospita INSULIN 100 38 skin every l unit/mL morning. injection (pen) traMADol Yes 50mg Q.[id number] Take 50 mg [facility] (ULTRAM) 50 11-23 [id number] mouth [address] mg tablet 20:08: 3D (three) Hospi ta 38 times a l day as needed for moderate pain or severe pain. metoprolol Yes 50mg Q.5D Take 50 mg M ethodi tartrate 11-[address] (LOPRESSOR) 20:08: (two) Hospi ta 100 mg 38 times a l tablet day. tacrolimus Yes 3mg QD Take 3 mg Me thodi (PROGRAF) 1 11-[address] MG capsule 20:08: every Hospit a 38 morning. l Note: Pt is taking 3 cap QAM and 2 caps QHS. lactulose 2020- No 20g QD Take 20 g Me thodi (CHRONULAC) 11-[address] 10 gram/15 20:08: 00:00 daily. Hosp alcides mL solution 36 :00 l furosemide 2020- No 40mg QD Take 40 mg [facility] (LASIX) 40 11-[address] mg tablet 20:08: 00:00 daily. Hospi ta 30 :00 l ergocalcife 2020- No [id number] Q7D Take Met hodi rol 11-23 50,000 [address] (VITAMIN 20:08: 00:00 Units by Hosp alcides D2) 50,000 23 :00 mouth once l unit a week. ( capsule Saturday ) tacrolimus 2020- No 2mg QD Take 2 mg M ethodi (PROGRAF) 1 11-[address] MG capsule 20:06: 00:00 nightly. Ho spita 27 :00 Note: Pt l is taking 3 cap QAM and 2 caps QHS. metoprolol Yes 100mg Q.5D Take [address] (TOPROL-XL) 8-27 mg by [facility] - 100 MG 24 19:16: mouth 2 Medic al hr tablet 07 (two) Center times daily. traMADol Yes 50mg Take [address] (ULTRAM) 50 8-27 by mouth 2 Melony kes - mg tablet 19:16: (two) Medical 07 times Center daily as needed for Pain . atorvastati Yes 40mg QD Take [address] n (LIPITOR) 8-27 by mouth Luke s - 40 MG 19:16: daily. Medical tablet 07 Center insulin 2020- No 15U Inject [address] glargine 11-18 Units [facility]ukes - (Lantus 19:12: 00:00 subcutaneo Med ical Solostar 49 :00 usly. Center U-100 Insulin) 100 unit/mL (3 mL) In insulin 2020- No 30U Inject [address] glargine 11-18 Units [facility]ukes - U-300 conc 19:12: 00:00 subcutaneo Medical (TOUJEO) 49 :00 usly. Center 300 unit/mL (1.5 mL) In syringe amLODIPine 2021- Yes 10mg QD Take [address] (NORVASC) 11-18 tablet (10 [place]ola es - 10 MG 00:00: 23:59 mg total) Medica l tablet 00 :00 by mouth Center daily. insulin 2021- Yes 7U Q.5D Inject 7 [facility] S t glargine 11-17 Units [facility]ukes - (LANTUS) 00:00: 23:59 subcutaneo Me dical 100 unit/mL 00 :00 usly 2 Center injection (two) times daily Use as directed. gabapentin 2021- Yes 300mg Q.5D Take [address] (NEURONTIN) 11-17 capsule Luke s - 300 MG 00:00: 23:59 (300 mg Medical capsule 00 :00 total) by Center mouth 2 (two) times daily. acetaminoph 2020- No 1000mg Take [address] en 11-17 09-05 tablets [facility] - (TYLENOL) 00:00: 23:59 (1,000 mg Me dical 500 MG 00 :00 total) by Center tablet mouth every 6 (six) hours for 10 days. ondansetron 2020- No TAKE 1 Met hodi (ZOFRAN) 4 10-11- TABLET BY st MG tablet 00:00: 00:00 MOUTH Hospit a 00 :00 EVERY 6 l HOURS FOR 10 DAYS NEEDED acetaminoph 2020- No 60{tbl} Q6H Take 60 Methodi en-codeine 7-20 09-[address] (TYLENOL 00:00: 00:00 mouth Hospita WITH 00 :00 every 6 l CODEINE #4) (six) 300-60 mg hours as per tablet needed. tacrolimus 2019-03 Yes TAKE 3 [facility] t (PROGRAF) 1 1-20 CAPSULES Luke s - MG capsule 00:00: BY MOUTH Med ical 00 TWO TIMES Center DAILY tacrolimus 2019-03 Yes TAKE 3 [facility] t (PROGRAF) 1 1-20 CAPSULES Luke s - MG capsule 00:00: BY MOUTH Med ical 00 TWO TIMES Center DAILY tacrolimus 2019-03- No 2mg Q.5D Take [address] (PROGRAF) 1 1-02 11-20 capsules Abiola es - MG capsule 00:00: 00:00 (2 mg Medic al 00 :00 total) by Center mouth 2 (two) times daily. tacrolimus 2019-03- No 2mg Q.5D Take [address] [...] tablet 17 (two) Center times daily. traMADol 2019-0 Yes 50mg Take [address] (ULTRAM) 50 1-21 by mouth 2 Melony kes - mg tablet 18:16: (two) Medical 17 times Center daily as needed for Pain . atorvastati 2019-0 Yes 40mg QD Take [address] n (LIPITOR) 1-21 by mouth Luke s - 40 MG 18:16: daily. Medical tablet 17 Center sodium Yes 500mL Inject [address] chloride 1-21 mLs [facility]ukes - 0.9% (NS) 00:00: intravenou Me dical infusion 00 sly Center continuous . sodium 2020- No 500mL Inject [address] chloride 1-21 08-26 mLs [facility] - 0.9% (NS) 00:00: 00:00 intravenou M edical infusion 00 :00 sly Center continuous . lactulose 2018-03 Yes 20g QD Take 20 g Met hodi (CHRONULAC) 0-[address] 10 gram/15 02:28: daily. Hospi ta mL solution 04 l traMADol 2018-03 Yes 50mg Q.[id number] Take 50 mg [facility] (ULTRAM) 50 0-12 [id number] by mouth 3 st mg tablet 02:28: [...] and 2 caps QHS. ergocalcife 2018-03 Yes [id number] Q7D Take Meth jordy rol 0-12 50,000 st (VITAMIN 02:28: Units by Hospi ta D2) 50,000 04 mouth once l unit a week. ( capsule Saturday ) atorvastati 2018-03 Yes 40mg QD Take 40 [...] skin every l unit/mL morning. injection (pen) tacrolimus 2019- No 3mg in the [facility] (PROGRAF) 1 9-16 11-02 morning Luke s - MG capsule 00:00: 00:00 and 2mg at Medical 00 :00 night. Center tacrolimus 2019- No 3mg in the [facility] (PROGRAF) 1 9-16 11-02 morning Luke s - MG capsule 00:00: 00:00 and 2mg at Medical 00 :00 night. [facility] insulin Yes 15U QD Inject 15 [facility] t glargine 8-27 Units [facility]ukes - (LANTUS 00:00: subcutaneo Medi erasmo SOLOSTAR 00 usly every Cente r U-100 morning. INSULIN) 100 unit/mL (3 mL) In insulin No 15U QD Inject [address] glargine 8-27 08-26 Units [facility]ukes - (LANTUS 00:00: 00:00 subcutaneo Med ical SOLOSTAR 00 :00 usly every Cente r U-100 morning. INSULIN) 100 unit/mL (3 mL) In blood sugar Yes Diabetes Test [address] [facility] diagnostic 7-31 (HCC) times [facility] - (EASY 00:00: daily, Medical TOUCH) Strp [address] and at bedtime. blood sugar Yes Diabetes Test [address] [facility] diagnostic 7-31 (HCC) times [facility] - (EASY 00:00: daily, Medical TOUCH) Strp [address] and at bedtime. Immunizations Ordered Immunization Filled Immunization Date Status Commen ts Source Name Name Pneumococcal 2016-08-[address] [facility] - Polysaccharide 00:00:00 Medical Ce nter (Pneumovax) Pneumococcal 2016-08-[address] [facility] - Polysaccharide 00:00:00 Medical Ce nter (Pneumovax) Vital Signs Vital Name Observation Time Observation Value Comments Source Systolic blood 2020-11-18 18:15:00 160 mm[Hg] [facility] Diastolic blood 2020-11-18 18:15:00 62 mm[Hg] [facility] S t [facility] Heart rate 2020-11-18 18:15:00 88 /min [facility] Body temperature 2020-11-18 18:15:00 36.78 Peg [facility] Respiratory rate 2020-11-18 18:15:00 19 /min [facility] Body weight 2020-11-18 18:15:00 80 kg [facility] BMI 2020-11-18 18:15:00 29.35 kg/m2 [facility] Oxygen saturation in 2020-11-18 18:15:00 96 /min [facility] Arterial blood by Medical Ce nter Pulse oximetry Body height 2020-11-04 04:00:00 165.1 cm [facility] Body height 2020-05-04 15:11:00 165.1 cm [facility] Body weight 2020-05-04 15:11:00 87 kg [facility] BMI 2020-05-04 15:11:00 31.92 kg/m2 [facility] Procedures Procedure Date / Time Performing Clinician Source Performed HEMODIALYSIS INPATIENT 2020-11-18 13:57:04 Ritchie Saini [facility] POCT-GLUCOSE METER 2020-11-18 12:01:00 [facility] POCT-GLUCOSE METER 2020-11-18 07:39:00 [facility] POCT-GLUCOSE METER 2020-11-17 21:13:00 [facility] POCT-GLUCOSE METER 2020-11-17 17:05:00 [facility] SARS-COV2/RT-PCR ([facility] & 2020-11-17 13:47:00 [facility] - REF LABS) [facility] POCT-GLUCOSE METER 2020-11-17 11:44:00 [facility] POCT-GLUCOSE METER 2020-11-17 08:06:00 [facility] CBC W/PLT COUNT & AUTO 2020-11-17 05:24:[address] [facility] DIFFERENTIAL [facility] BASIC METABOLIC PANEL 2020-11-17 05:24:[address] [facility] () [facility] TACROLIMUS LEVEL 2020-11-17 05:24:00 [facility] 2020-11-16 17:16:00 JessicaLeo wells [facility] POCT-GLUCOSE METER 2020-11-16 13:20:00 Merchant [facility] HEMODIALYSIS INPATIENT 2020-11-16 11:45:00 Ritchie Saini [facility] POCT-GLUCOSE METER 2020-11-15 21:03:00 Adio, Carlosmission viejo [facility] POCT-GLUCOSE METER 2020-11-15 18:31:00 [facility] 2020-11-15 11:27:00 [facility] PO[facility] 2020-11-15 07:53:00 Adio, [facility] CBC W/PLT COUNT & AUTO 2020-11-15 06:18:00 [facility]OLIC PANEL 2020-11-15 06:18:00 Twila, Carlosmission viejo Jack[address] TACROLIMUS LEVEL 2020-11-15 06:18:00 Davidio, Carlosmission viejo Adolfo [facility] HEMODIALYSIS INPATIENT 2020-11-14 14:57:03 Parveen Ritchie [facility] POCT-GLUCOSE METER 2020-11-14 13:17:00 Adio, Carlosmission viejo [facility] POCT-GLUCOSE METER 2020-11-14 08:26:00 Adio, Carlosmission viejo Jack. [facility] POCT-GLUCOSE METER 2020-11-13 19:38:00 Adio, [facility]. [facility] POCT-GLUCOSE METER 2020-11-13 17:24:00 Adio, [facility] POCT-GLUCOSE METER 2020-11-13 11:45:00 Adio, [facility] POCT-GLUCOSE METER 2020-11-13 08:52:00 Vivek Mattson [facility] CBC W/PLT COUNT & AUTO 2020-11-13 06:30:00 Corrie [facility] - DIFFERENTIAL [facility] BASIC METABOLIC PANEL 2020-11-13 06:30:00 [facility] - (7) [facility] PROTHROMBIN TIME/INR 2020-11-13 06:30:00 [facility] S t [facility] TACROLIMUS LEVEL 2020-11-13 06:30:00 [facility] Melony [facility] (CELLAVISION MANUAL 2020-11-13 06:30:00 [facility] - DIFF) [facility] POCT-GLUCOSE METER 2020-11-12 17:09:00 Vivek Mattson [facility] POCT-GLUCOSE METER 2020-11-12 12:18:00 Vivek Mattson [facility] POCT-GLUCOSE METER 2020-11-12 08:51:00 Vivek Mattson [facility] CBC W/PLT COUNT & AUTO 2020-11-12 05:09:[address] [facility] DIFFERENTIAL [facility] BASIC METABOLIC PANEL 2020-11-12 05:09:00 [address] [facility] - (7) [facility] PROTHROMBIN TIME/INR 2020-11-12 05:09:00 Corrie [facility] S t [facility] TACROLIMUS LEVEL 2020-11-12 05:09:00 [facility] [place] [facility] (CELLAVISION MANUAL 2020-11-12 05:09:00 [facility] - DIFF) [facility] HEMODIALYSIS INPATIENT 2020-11-11 13:52:56 Ritchie Sanii [facility] POCT-GLUCOSE METER 2020-11-11 11:13:00 Vivek Mattson [facility] POCT-GLUCOSE METER 2020-11-11 07:40:00 Vivek Mattson [facility] CBC W/PLT COUNT & AUTO 2020-11-11 05:24:00 [facility] - DIFFERENTIAL [facility] BASIC METABOLIC PANEL 2020-11-11 05:24:00 [facility] (7) [facility] PROTHROMBIN TIME/INR 2020-11-11 05:24:00 [facility] S [facility] TACROLIMUS LEVEL 2020-11-11 05:24:00 [facility] (CELLAVISION MANUAL 2020-11-11 05:24:00 [facility] - DIFF) [facility] POCT-GLUCOSE METER 2020-11-10 07:21:00 Vivek Mattson [facility] CBC W/PLT COUNT & AUTO 2020-11-10 05:11:00 [facility] - DIFFERENTIAL [facility] BASIC METABOLIC PANEL 2020-11-10 05:11:00 [facility] (7) [facility] PROTHROMBIN TIME/INR 2020-11-10 05:11:00 [facility] HEMOGLOBIN A1C 2020-11-10 05:11:00 Vivek Mattson [facility] TACROLIMUS LEVEL 2020-11-10 05:11:00 [facility] POCT-GLUCOSE METER 2020-11-09 22:17:00 Vivek Mattson [facility] HEMODIALYSIS INPATIENT 2020-11-09 14:11:34 Ritchie Saini [facility] POCT-GLUCOSE METER 2020-11-09 11:54:00 Vivek Mattson [facility] POCT-GLUCOSE METER 2020-11-09 05:46:00 Vivek Mattson [facility] CBC W/PLT COUNT & AUTO 2020-11-09 05:00:00 [facility] DIFFERENTIAL [facility] BASIC METABOLIC PANEL 2020-11-09 05:00:00 [facility] (7) [facility] MAGNESIUM 2020-11-09 05:00:00 Brittb[facility] centerregi [facility] PHOSPHORUS 2020-11-09 05:00:00 [facility] CALCIUM, IONIZED 2020-11-09 05:00:00 [facility] HEPATIC FUNCTION PANEL 2020-11-09 05:00:00 [facility] APTT 2020-11-09 05:00:00 [facility] PROTHROMBIN TIME/INR 2020-11-09 05:00:00 [facility] S t [facility] VANCOMYCIN LEVEL, RANDOM 2020-11-09 05:00:00 Radames Mcneill [facility] TACROLIMUS LEVEL 2020-11-09 05:00:00 [facility] POCT-GLUCOSE METER 2020-11-09 00:31:00 Gamal Munson [facility] POCT-GLUCOSE METER 2020-11-08 17:57:00 Gamal Munson [facility] CBC W/PLT COUNT & AUTO 2020-11-08 06:30:00 [facility] - DIFFERENTIAL [facility] BASIC METABOLIC PANEL 2020-11-08 06:30:00 Corrie [facility] (7) [facility] MAGNESIUM 2020-11-08 06:30:00 Corrie [facility] PHOSPHORUS 2020-11-08 06:30:00 [facility]CI[facility], ION[facility]ED 2020-11-08 06:30:00 [facility] HEPATIC FUNCTION PANEL 2020-11-08 06:30:00 [facility] APTT 2020-11-08 06:30:00 [facility] PROTHROMBIN TIME/INR 2020-11-08 06:30:00 [facility] TACROLIMUS LEVEL 2020-11-08 06:30:00 [facility] POCT-GLUCOSE METER 2020-11-07 23:38:00 [facility] POCT-GLUCOSE METER 2020-11-07 11:40:00 Jeimy [facility] CBC W/PLT COUNT & AUTO 2020-11-07 05:13:00 [facility] DIFFERENTIAL [facility] BASIC METABOLIC PANEL 2020-11-07 05:13:00 [facility] (7) [facility] MAGNESIUM 2020-11-07 05:13:00 [facility] PHOSPHORUS 2020-11-07 05:13:00 [facility] CALCIUM, IONIZED 2020-11-07 05:13:00 [facility] HEPATIC FUNCTION PANEL 2020-11-07 05:13:00 [facility] [facility] APTT 2020-11-07 05:13:00 [facility] PROTHROMBIN TIME/INR 2020-11-07 05:13:00 [facility] TACROLIMUS LEVEL 2020-11-07 05:13:00 [facility] VANCOMYCIN LEVEL, RANDOM 2020-11-06 15:03:00 Hailey Lynch [facility] POCT-GLUCOSE METER 2020-11-06 15:03:[address] [facility] 2D ECHO W/ DOPPLER 2020-11-06 13:05:20 [facility] (CW/PW/COLOR) [facility] POCT-GLUCOSE METER 2020-11-06 05:47:00 [facility] CBC W/PLT COUNT & AUTO 2020-11-06 03:35:00 [facility] DIFFERENTIAL [facility] CALCIUM, IONIZED 2020-11-06 03:35:00 [facility] TACROLIMUS LEVEL 2020-11-06 03:35:00 [facility] BASIC METABOLIC PANEL 2020-11-06 03:34:00 [facility] (7) [facility] MAGNESIUM 2020-11-06 03:34:00 [facility] PHOSPHORUS 2020-11-06 03:34:00 [facility] HEPATIC FUNCTION PANEL 2020-11-06 03:34:00 [facility] APTT 2020-11-06 03:34:00 [facility] PROTHROMBIN TIME/INR 2020-11-06 03:34:00 [facility] HC VENOUS DOPPLER EXT 2020-11-06 01:45:00 Will Wallace [facility] POCT-GLUCOSE METER 2020-11-05 23:49:[address] [facility] US HEPATIC PORTAL VESSEL 2020-11-05 20:40:00 Kal Pang [facility] POCT-GLUCOSE METER 2020-11-05 17:58:[address] [facility] MAGNESIUM 2020-11-05 15:33:00 [facility] PHOSPHORUS 2020-11-05 15:33:00 [facility] BASIC METABOLIC PANEL 2020-11-05 15:33:00 [facility] ([facility] VANCOMYCIN LEVEL, TROUGH 2020-11-05 15:33:00 Kal Pang [facility] POCT-GLUCOSE METER 2020-11-05 12:46:00 [facility] BLOOD CULTURE 2020-11-05 12:11:00 [facility] 2020-11-05 11:59:00 [facility] POCT-GLUCOSE METER 2020-11-05 06:11:00 [facility] HEPATITIS B SURFACE 2020-11-05 05:45:00 Ritchie Saini [facility] CBC W/PLT COUNT & AUTO 2020-11-05 05:45:00 [facility] BASIC METABOLIC PANEL 2020-11-05 05:45:00 Corrie [facility] (7) [facility] MAGNESIUM 2020-11-05 05:45:00 [facility] PHOSPHORUS 2020-11-05 05:45:00 [facility] CALCIUM, IONIZED 2020-11-05 05:45:00 [facility] TACROLIMUS LEVEL 2020-11-05 05:45:00 [facility] HEPATIC FUNCTION PANEL 2020-11-05 05:45:00 [facility] APTT 2020-11-05 05:45:00 [facility] PROTHROMBIN TIME/INR 2020-11-05 05:45:00 [facility] POCT-GLUCOSE METER 2020-11-05 00:15:00 Gamal Munson [facility] CBC W/PLT COUNT & AUTO 2020-11-04 18:41:00 [facility] DIFFERENTIAL [facility] BASIC METABOLIC PANEL 2020-11-04 18:41:00 [facility] (7) [facility] MAGNESIUM 2020-11-04 18:41:00 [facility] PHOSPHORUS 2020-11-04 18:41:00 [facility] PROTHROMBIN TIME/INR 2020-11-04 18:41:00 [facility] APTT 2020-11-04 18:41:00 [facility] HEPATIC FUNCTION PANEL 2020-11-04 18:41:00 [facility] LACTIC ACID, ARTERIAL 2020-11-04 18:41:00 [facility] POCT-GLUCOSE METER 2020-11-04 15:25:00 Gamal Munson [facility] TISSUE EXAM 2020-11-04 12:35:[address] [facility] ANAEROBIC CULTURE 2020-11-04 11:35:27 Madelyn Segal [facility] SURGICALLY OBTAINED 2020-11-04 11:35:27 Madelyn Segal [facility] - CULTURE + GRAM STAIN Medical Riana ter FUNGUS CULTURE + SMEAR 2020-11-04 11:35:27 Madelyn Segal [facility] LAPAROTOMY,EXPLORATORY 2020-11-04 10:13:00 Madelyn Segal [facility] LAPAROSCOPY,SMALL BOWEL 2020-11-04 10:13:[address] [facility] RESECTION [facility] SARS-COV2/RT-PCR ([facility] & 2020-11-04 09:29:00 Brenda Zarate [facility] - REF LABS) Medical Center TYPE AND SCREEN, 2020-11-04 09:22:[address] [facility] AUTOMATED [facility] CBC W/PLT COUNT & AUTO 2020-11-04 09:21:00 Brittney Hinton [facility] DIFFERENTIAL [facility] BASIC METABOLIC PANEL 2020-11-04 09:21:[address] [facility] (7) [facility] (CELLAVISION MANUAL 2020-11-04 09:21:00 Brittney Hinton [facility] - DIFF) [facility] ECG 12-LEAD 2020-11-04 09:15:51 Guy Waggoner [facility] POCT-GLUCOSE METER 2020-11-04 08:20:00 Gamal Munson [facility] CBC W/PLT COUNT & AUTO 2020-11-04 03:06:00 Brittney Hinton [facility] DIFFERENTIAL [facility] BASIC METABOLIC PANEL 2020-11-04 03:06:00 [facility] LACTIC ACID, VENOUS 2020-11-04 03:06:00 Brittney Hinton [facility] PROTHROMBIN TIME/INR 2020-11-04 03:06:00 Brittney Hinton [facility] HEPATIC FUNCTION PANEL 2020-11-04 03:06:00 Lucian Nathan [facility] REPORT OF PROCEDURE - 2020-11-04 00:00:00 Provider, Nasir [facility] - ENDOSCOPY SCAN Scanning [facility] CT CHEST WO CONTRAST 2020-10-27 00:00:00 Provider, Moon [facility] Plan of Care Planned Activity Planned Date Details Comments Source Future Scheduled 2021-08-09 PNEUMOCOCCAL 65+ YRS [facility] - Test 00:00:00 (1 of 1 - Medical Center [id number] PCV13) [code = PNEUMOCOCCAL 65+ YRS (1 of 1 - [id number] PCV13)] Future Scheduled 2021-08-09 PNEUMOCOCCAL 65+ YRS [facility] - Test 00:00:00 (1 of 1 - Medical Center [id number] PCV13) [code = PNEUMOCOCCAL 65+ YRS (1 of 1 - [id number] PCV13)] Future Scheduled 2021-05-[address] [facility] Test 00:00:00 [facility] (procedure) [code = 29436654] Future Scheduled 2020-11-23 INFLUENZA VACCINE (#1) [facility]00 [code = INFLUENZA Medical Ce nter VACCINE (#1)] Future Scheduled 2020-11-23 INFLUENZA VACCINE (#1) [facility] 00:00:00 [code = INFLUENZA Medical Ce nter VACCINE (#1)] Future Scheduled 2020-03-[address] [facility] - Test 00:00:00 (12+) [code = Medical Center DEPRESSION SCREENING (12+)] Future Scheduled 2020-03-25 FALLS RISK SCREENING [facility] - Test 00:00:00 [code = FALLS RISK Medical C enter SCREENING] Future Scheduled 2020-03-[address] [facility] - Test 00:00:00 (12+) [code = Medical Center DEPRESSION SCREENING (12+)] Future Scheduled 2020-03-25 FALLS RISK SCREENING [facility] - Test 00:00:00 [code = FALLS RISK Medical C enter SCREENING] Future Scheduled 2019-07-[address] [facility] - Test 00:00:00 WELLNESS (YEAR 2 or Medical Center FIRST YEAR if no IPPE) [code = MEDICARE ANNUAL WELLNESS (YEAR 2 or FIRST YEAR if no IPPE)] Future Scheduled 2019-07-[address] [facility] - Test 00:00:00 WELLNESS (YEAR 2 or Medical Center FIRST YEAR if no IPPE) [code = MEDICARE ANNUAL WELLNESS (YEAR 2 or FIRST YEAR if no IPPE)] Future Scheduled 2019-02-[address] [facility] - Test 00:00:00 [facility] (procedure) [code = 58913573] Future Scheduled 2003 SHINGLES VACCINES ([address] [facility] - Test 00:00:00 of 2) [code = SHINGLES Medic al Center VACCINES (1 of 2)] Future Scheduled 2003 SHINGLES VACCINES ([address] [facility] - Test 00:00:00 of 2) [code = SHINGLES Medic al Center VACCINES (1 of 2)] Future Scheduled 1972-01-08 DTAP/TDAP/TD VACCINES [facility] Test 00:00:00 (1 - Tdap) [code = Medical C enter DTAP/TDAP/TD VACCINES (1 - Tdap)] Future Scheduled 1972-01-08 DTAP/TDAP/TD VACCINES CH I [...] 00:00:00 examination Medical Center (regime/therapy) [code = 060776432] Future Scheduled 1965 Urine screening for [facility] - Test 00:00:00 protein (procedure) Medical Center [code = 060496978] Future Scheduled 1965 DIABETIC EYE EXAM [facility] - Test 00:00:00 [code = DIABETIC EYE Medical Center EXAM] Future Scheduled [address] [facility] Test 00:00:00 examination Medical Center (regime/therapy) [code = 880831772] Future Scheduled 1963 Urine screening for [facility] - Test 00:00:00 protein (procedure) Medical Center [code = 680042125] Future Scheduled [address] [facility] - Test 00:00:00 malignant neoplasm of [facility]ica l Center breast (procedure) [code = 556284507] Future Scheduled [address] [facility] - Test 00:00:00 malignant neoplasm of [facility] Center colon (procedure) [code = 085704728] Future Scheduled [address] [facility] - Test 00:00:00 malignant neoplasm of [facility] breast (procedure) [code = 281782168] Future Scheduled [address] [facility] - Test 00:00:00 malignant neoplasm of [facility] colon (procedure) [code = 132104385] Future Scheduled 65+ [facility] [...] COVID-19 VACCINE (1)] Future Scheduled BREAST CANCER [facility] Test SCREENING [code = BREAST CANCER SCREENING] Future Scheduled [facility] [code = COLONOSCOPY SCREENING] Future Scheduled SHINGLES VACCINES (#[facility]) [facility] [code = SHINGLES VACCINES (#1)] Future Scheduled [facility] [code = INFLUENZA VACCINE] Future Scheduled 65+ [facility]OCOCCAL [facility] [...] COVID-19 VACCINE (1)] Future Scheduled BREAST CANCER [facility] Test SCREENING [code = BREAST CANCER [...] Date/Time Type Type Clinicians Facility Department ID 2020-11-24 2020-11-24 [facility] [id number] 23:59:00 23:59:00 Encounter [facility] 2020-11-24 2020-11-24 [facility] [id number] 23:59:00 23:59:00 Encounter [facility] 2020-11-24 2020-11-24 Telephone Milton, 1.2.840.1 [id number] Methodi 00:00:00 00:00:[address] 3.430.2.7 Hospit a .3.237184 l .8 2020-11-24 2020-11-24 Orders Charles, 1.2.840.1 [id number] Methodi 00:00:00 00:00:00 Only Marco Antonio 55464.1.[address] 3.430.2.7 Hospit a .3.333868 l .8 2020-11-24 2020-11-24 [facility] [id number] 00:[facility]00 00:00:00 [facility] 2020-11-23 2020-11-23 Abstract Lebron, 1.2.840.1 [id number] Methodi 00:00:00 00:00:[address] 3.430.2.7 Hospit a .3.126400 l .8 2020-11-21 2020-11-21 [facility]phone [facility] [id number] 00:00:00 00:00:00 Destini [facility] 2020-11-04 2020-11-18 Hospital Kasey Mackay [facility] [id number] 01:24:00 19:15:00 Encounter Lucian Nathan, [facility], [facility] Vivek Mattson, Madelyn Staley 2020-11-14 2020-11-14 Documentat [facility] [id number] [id number] 00:00:00 00:00:00 ion Angi [facility] 2020-11-07 2020-11-07 Orders Provider, 1.2.840.1 [id number] Methodi 00:00:00 00:00:00 Only Historical 73873.1.1 [address]87 [address] t 3.430.2.7 Hospit a .3.882336 l .8 2020-11-04 2020-11-04 [facility]est[facility] [id number] 10:39:00 14:37:00 Event Napoleon Kraus [facility] 2020-11-04 2020-11-04 Surgery Maurice [facility] [id number] 09:46:00 13:23:00 Madelyn Siomara [facility] 2020-11-04 2020-11-04 Travel [facility] [id number] [facility] 00:[facility]00 00:00:00 [facility] 2020-11-03 2020-11-03 [facility]ill [facility] [id number] 00:00:00 00:00:00 Felicia Childers [facility] 2020-11-02 2020-11-02 Telephone Wyatt, 1.2.840.1 [id number] Methodi 00:00:00 00:00:00 Edmar Betts 85219.1.[address] 3.430.2.7 Hospit a .3.497846 l .8 2020-11-02 2020-11-02 Travel 1.2.840.1 1.2.104.995 [id number] Methodi 00:00:00 00:00:[address] 3.430.2.7 0.2.7.3.698 Ho spita .3.052395 084.8 l .8 2020-11-02 2020-11-02 Telephone Schneider, 1.2.840.1 [id number] Methodi 00:00:00 00:00:00 [address] 3.430.2.7 Hospit a .3.485655 l .8 2020-11-02 2020-11-02 Telephone Schneider, 1.2.840.1 [id number] Methodi 00:00:00 00:00:00 Edward [address]403.1.[address] 3.430.2.7 Hospit a .3.138174 l .8 2020-11-02 2020-11-02 Travel 1.2.840.1 1.2.411.865 [id number] Methodi 00:00:00 00:00:[address] 3.430.2.7 0.2.7.3.698 Ho spita .3.982143 084.8 l .8 2020-11-02 2020-11-02 Telephone Schneider, 1.2.840.1 [id number] Methodi 00:00:00 00:00:00 [address] 3.430.2.7 Hospit a .3.958553 l .8 2020-10-27 2020-10-27 [place] [facility] [id number] [facility] St 00:00:00 00:00:00 [facility] 2020-10-20 2020-10-20 [facility] [id number] [id number] 00:00:00 00:00:00 tanya Whitley [facility] 2020-10-06 2020-10-06 [place] [facility] [id number] 00:00:00 00:00:00 [facility] 2020-09-08 2020-09-08 [facility] [id number] 23:59:00 23:59:00 Encounter [facility] 2020-08-31 2020-08-31 Documentat Ni, [facility] [id number] [facility] 00:[facility]:00 00:00:00 ion Destini Monge [facility] 2020-08-26 2020-08-26 Telephone Ni [facility] [id number] 00:00:00 00:00:00 [facility] 2020-08-24 2020-08-24 Documentat Domenico, [facility] [id number] 00:00:00 00:00:00 [facility] 2020-08-12 2020-08-12 Telephone Domenico, [facility] [id number] 00:00:00 00:00:00 [facility] 2020-08-11 2020-08-11 Documentat Domenico, [facility] [id number] [id number] 00:00:00 00:00:[address] [facility] 2020-08-11 2020-08-11 Documentat Domenico, [facility] [id number] [id number] 00:00:00 00:00:00 [facility] 2020-08-10 2020-08-10 Documentraina Domenico, [facility] [id number] [id number] 00:00:00 00:00:00 [facility] 2020-08-08 2020-08-08 Telephone [facility] [id number] 00:00:00 00:00:00 [facility] 2020-07-05 2020-07-05 [facility] [id number] 23:59:00 23:59:00 Encounter [facility] 2020-07-05 2020-07-05 [facility] [id number] 23:59:00 23:59:[address] [facility] 2020-07-05 2020-07-05 Telephone Claudio [facility] [id number] 00:00:00 00:00:00 Sophy Boyce [facility] 2020-07-04 2020-07-04 Documentraina Dan, [facility] [id number] [facility] 00:[facility]00 00:00:00 ion [facility] 2020-06-09 2020-06-09 Telephone Domenico, [facility] [id number] 00:00:00 00:00:00 [facility] 2020-06-08 2020-06-08 Telephone Domenico [facility] [id number] 00:00:00 00:00:00 [facility] 2020-05-30 2020-05-30 Telephone Ni, [facility] [id number] 00:00:00 00:00:00 [facility] 2020-05-24 2020-05-24 Marquis Rosenberg [facility] [id number] 00:00:00 00:00:00 [facility] 2020-05-16 2020-05-16 Abstract Jina [facility] [id number] 00:00:00 00:00:00 [facility] 2020-05-13 2020-05-13 Marquis Muro [facility] [id number] 00:00:00 00:00:00 [facility] 2020-05-09 2020-05-09 Marquis Rosenberg [facility] [id number] 00:00:00 00:00:00 [facility] 2020-05-09 2020-05-09 Documentraina Rosenberg [facility] [id number] 00:00:00 00:00:00 [facility] 2020-05-06 2020-05-06 Abstract Hadley, [facility] [id number] 00:00:00 00:00:00 [facility] 2020-05-04 2020-05-04 Documentat Rosenberg, [facility] [id number] 00:00:00 00:00:00 [facility] 2020-05-04 2020-05-04 Documentat Rosenberg, [facility] [id number] 00:00:00 00:00:00 [facility] 2020-05-04 2020-05-04 Documentat Rosenberg, [facility] [id number] 00:00:00 00:00:00 [facility] 2020-05-04 2020-05-04 Telephone Chet [facility] [id number] 00:00:00 00:00:00 [facility] 2020-05-04 2020-05-04 Documentat Rosenberg, [facility] [id number] 00:00:00 00:00:00 [facility] 2020-05-04 2020-05-04 Telephone Chet [facility] [id number] 00:00:00 00:00:00 [facility] 2020-05-04 2020-05-04 Abstract Chet, [facility] [id number] 00:00:00 00:00:00 [facility] 2020-04-13 2020-04-13 Telephone Domenico [facility] [id number] 00:00:00 00:00:00 [facility] 2020-04-11 2020-04-11 Telephone Tru [facility] [id number] 00:00:00 00:00:00 [facility] 2020-04-01 2020-04-01 Telephone Domenico [facility] [id number] 00:00:00 00:00:00 [facility] 2020-02-26 2020-02-26 Telephone Domenico [facility] [id number] 00:00:00 00:00:[address] [facility] 2020-02-26 2020-02-26 Vic [facility] [id number] [id number] 00:00:00 00:00:00 [facility] 2020-02-25 2020-02-25 [facility] [id number] [id number] 00:00:00 00:00:00 [facility] 2020-02-11 2020-02-11 Al Glaser [facility] [id number] 00:00:00 00:00:00 [facility] 2020-02-09 2020-02-09 Sam [facility] [id number] [id number] [facility] 00:00:00 00:00:00 [facility] 2020-01-26 2020-01-26 Telephone Krista [facility] [id number] [facility] 00:00:00 00:00:00 [facility] 2020-01-25 2020-01-25 Sam Fiorejemercedes [facility] [id number] 00:00:00 00:00:00 [facility] 2020-01-25 2020-01-25 [facility] [id number] 00:00:00 00:00:00 [facility] 2020-01-25 2020-01-25 Sam [facility] [id number] 00:00:00 00:00:00 [facility] Results Test Description Test Time Test Comments Results Result Comments Source POC-Glucose meter 2020-11-18 12:13:00 Test Item Value Reference Range Interpretation Comme nts POC-Glucose Meter (test code = 117 mg/dL 70-110 H : TESTED AT [facility] [address] [facility] 1538) [facility], 770 30: E [employer] Solution Architect/Techni leah ID = [id number] for Melany Chavez i Lab Interpretation (test code = Abnormal 94584-0) [facility] [id number] 12:13:00 Test Item Value Reference Range Interpretation Comments POC-GLUCOSE METER 117 mg/dL 70-110 H : TESTED A T [facility] [address] (BEAKER) (test code = [facility]ERT[facility] R [facility], 1538) [address]: E [employer] Architect/Techni leah ID = [id number] for Thais Guzmán POCT-GLUCOSE [id number] 07:51:00 Test Item Value Reference Range Interpretation Comments POC-GLUCOSE METER 73 mg/dL 70-110 : TESTED A T [facility] [address] (BEAKER) (test code = [facility] R [facility], 1538) [address]: E [employer] Architect/Techni leah ID = [id number] for Thais De Paz SARS-CoV2/RT-PCR (Asymptomatic ONLY)2020-11-17 23:15:00 Test Item Value Reference Range Interpretation Comments SARS-COV2/RT-PCR (test Negative Negative code = 24205-1) BRADLY (test code = BRADLY) Negative result for this test determines that SARS-CoV-2 RNA was not present in the specimen above the Limit of Detection (LOD). However, Negative results do not preclude SARS-CoV-2 infection and should not be used as the sole basis for treatment or patient management decisions. Negative results must be combined with clinical observations, patient history, and epidemiological information. A false negative result may occur if a specimen is improperly collected, transported, or handled. A false negative result should be considered if patient's recent exposures or clinical presentation indicate that COVID-19 (SARS-CoV-2) is likely and diagnostic tests for other causes of illness are negative. Re-testing should be considered in cases of suspected false negatives. The limit of detection for this assay is 100 copies/mL. This SARS-CoV-2 test is a real-time RT_PCR test intended for the qualitative detection of nucleic acid from SARS-CoV-2 in a nasopharyngeal swab specimen collected from individuals suspected of COVID-19 by their healthcare provider. This test has not been Food and Drug Administration (FDA) cleared or approved. This is a modified version of an approved Emergency Use Authorization (EUA) and is in the process of review by the FDA. Once authorized by the FDA, the issued EUA will be effective until the declaration that circumstances exist justifying the authorization of the emergency use of in vitro diagnostic tests for detection and/or diagnosis of COVID-19 is terminated under Section 564(b)(2) of the Act or the EUA is revoked under Section 564(g) of the Act. Testing was performed using the Torqeedo SARS-CoV-2 assay. Fact Sheet for Healthcare Providers:https://www.jose singleton/elodia/RT SARS-CoV-2 HCP Fact Sheet 51-527620.pdf Fact Sheet for Healthcare Patients:https://www.dominik proctorwatson/elodia/RT SARS-CoV-2 Patient Fact Sheet EN 51-267518Q6.pdf Lab Interpretation Normal (test code = 33176-7) [facility])2020-11-17 23:15:00 Test Item Value Reference Range Interpretation Comments SARS-COV2/RT-PCR (test code = Negative Negative 2634199) Negative result for this test determines that SARS-CoV-2 RNA was not present in the specimen above the Limit of Detection (LOD). However, Negative results do not preclude SARS-CoV-2 infection and should not be used as the sole basis for treatment or patient management decisions. Negative results must be combined with clinical observations, patient history, and epidemiological information. A false negative result may occur if a specimen is improperly collected, transported, or handled. A false negative result should be considered if patient's recent exposures or clinical presentation indicate that COVID-19 (SARS-CoV-2) is likely and diagnostic tests for other causes of illness are negative. Re-testing should be considered in cases of suspected false negatives.The limit of detection for this assay is 100 copies/mL.This SARS-CoV-2 test is a real-time RT_PCR test intended for the qualitative detection of nucleic acid from SARS-CoV-2 in a nasopharyngeal swab specimen collected from individuals suspected of COVID-19 by their healthcare provider.This test has not been Food and Drug Administration (FDA) cleared or approved. This is a modified version of an approved Emergency Use Authorization (EUA) and is in the process of review by the FDA. Once authorized by the FDA, the issued EUA will be e ffective until the declaration that circumstances exist justifying the authorization of the emergency use of in vitro diagnostic tests for detection and/or diagnosis of COVID-19 is terminated under Section 564(b)(2) of the Act or the EUA is revoked under Section 564(g) of the Act.Testing was performedusing the Watson SARS-CoV-2 assay.Fact Sheet for Healthcare Providers:https://www.[employer]/elodia/RT SARS-CoV-2 HCP Fact Sheet 51- 768040.pdfFact Sheet for Healthcare Patients:https://www.[employer]/elodia/RT SARS-CoV-2 Patient Fact Sheet EN 51-401753J4.pdfPOCT-GLUCOSE [id number] 21:25:00 Test Item Value Reference Range Interpretation Comments POC-GLUCOSE METER 164 mg/dL 70-110 H : TESTED A T [facility] 6720 (BEAKER) (test code = [facility], 1538) 45156: E Commerce Solution Architect/Techni leah ID = [id number] for FARAZ MEYER POCT-GLUCOSE [id number] 17:17:00 Test Item Value Reference Range Interpretation Comments POC-GLUCOSE METER 156 mg/dL 70-110 H : TESTED A T [facility] 6720 (BEAKER) (test code = [facility], 1538) 62040: E [employer] Solution Architect/Techni leah ID = [id number] for TO RRNAZARIO, NO POCT-GLUCOSE [id number] 12:00:00 Test Item Value Reference Range Interpretation Comments POC-GLUCOSE METER 135 mg/dL 70-110 H : TESTED A T [facility] 6720 (BEAKER) (test code = [facility], 1538) 99256: E Commerce Solution Architect/Techni leah ID = [id number] for TO RRES, NO Tacrolimus [id number] 09:56:00 Test Item Value Reference Range Interpretation Comments Tacrolimus Lvl (test 7.0 ng/mL 10-20 L Test pe rformed on code = 73399-5) Watson Archi tect Immunoassay sys tem with Chemilumin escent Microparticle Immunoassay (CM IA) technology. BRADLY (test code = E Commerce Solution Architect ID - BRADLY) RM Lab Interpretation Abnormal (test code = 72481-9) [facility] [id number] 09:56:00 Test Item Value Reference Range Interpretation Comments TACROLIMUS BLOOD 7.0 ng/mL 10.0-20.0 L Test perfor med on Watson (BEAKER) (test code Architec t Immunoassay = 657) system with Chemiluminescen t Microparticle I mmunoassay (CMIA) technolo gy. E Commerce Solution Architect ID - RMPOCT-GLUCOSE [id number] 08:20:00 Test Item Value Reference Range Interpretation Comments POC-GLUCOSE METER 85 mg/dL 70-110 : TESTED A T [facility] 6720 (SmartRx) (test code = [place], 1538) 80603: E Commerce Solution Architect/Techni leah ID = [id number] for NO KIMBLE Basic Metabolic [id number] 06:42:00 Test Item Value Reference Range Interpretation Comments Sodium (test code = 134 meq/L 136-145 L 2951-2) Potassium (test code = 3.5 meq/L 3.5-5.1 2823-3) Chloride (test code = 99 meq/L 98-107 2075-0) CO2 (test code = 27 meq/L 22-29 2028-9) BUN (test code = 13 mg/dL 7-21 3094-0) Creatinine (test code 2.36 mg/dL 0.57-1.25 H = 2160-0) Glucose (test code = 72 mg/dL 70-105 2345-7) Calcium (test code = 7.9 mg/dL 8.4-10.2 L 52948-0) EGFR (test code = 21 mL/min/1.73 [place] [address]-9) NOT ACCURATE CREATININE CLEARANCE IN PREDICTING GLOMERULAR FILTRATION RATE . ESTIMATED GFR I S NOT APPLICABLE FOR DIALYSIS PATIENTS. BRADLY (test code = BRADLY) E Commerce Solution Architect ID - JAYLEN M Lab Interpretation Abnormal (test code = 27948-0) [facility] [id number] 06:42:00 Test Item Value Reference Range Interpretation Comments SODIUM (BEAKER) 134 meq/L 136-145 L (test code = 381) POTASSIUM (BEAKER) 3.5 meq/L 3.5-5.1 (test code = 379) CHLORIDE (BEAKER) 99 meq/L 98-107 (test code = 382) CO2 (BEAKER) (test 27 meq/L 22-29 code = 355) BLOOD UREA NITROGEN 13 mg/dL 7-21 (BEAKER) (test code = 354) CREATININE (BEAKER) 2.36 mg/dL 0.57-1.25 H (test code = 358) GLUCOSE RANDOM 72 mg/dL 70-105 (BEAKER) (test code = 652) CALCIUM (BEAKER) 7.9 mg/dL 8.4-10.2 L (test code = 697) EGFR (BEAKER) (test 21 mL/min/1.73 ESTIMA JUAN GFR IS code = 1092) sq m NOT ACCURATE CREATININE CLEARANCE IN PREDICTING GLOMERULAR FILTRATION RATE . ESTIMATED GFR I S NOT APPLICABLE FOR DIALYSIS PATIEN TS. E Commerce Solution Architect ID - JAYLEN MCBC with platelet count + automated [id number] 05:48:00 Test Item Value Reference Range Interpretation Comments WBC (test code = 6690-2) 4.8 See_Comment [A utomated message] The system Con[employer] generated this result transmitted ref erence range: 3.5 - 10 .5 K/L. The refe rence range was not u sed to interpret this result as normal/abnor mal. RBC (test code = 789-8) 3.18 See_Comment L [Au tomated message] The system [employer] generated this result transmitted ref erence range: 3.93 - 5 .22 M/L. The refe rence range was not u sed to interpret this result as normal/abnor mal. MCHC (test code = 786-4) 30.5 See_Comment L [A utomated message] The system [employer] generated this result transmitted ref erence range: 32.2 - 3 5.5 GM/DL. The refe rence range was not u sed to interpret this result as normal/abnor mal. Hematocrit (test code = 27.5 % 34.1-44.9 L 4544-3) MCV (test code = 787-2) 86.5 fL 79.4-94.8 MCH (test code = 785-6) 26.4 pg 25.6-32.2 RDW (test code = 788-0) 15.8 % 11.7-14.4 H Platelets (test code = 323 See_Comment [Aut omated message] 777-3) The system [employer] generated this result transmitted ref erence range: 150 - 45 0 K/CU MM. The referen ce range was not u sed to interpret this result as normal/abnor mal. MPV (test code = 8.3 fL 9.4-12.3 L 27523-2) nRBC (test code = 413) 0 See_Comment [Aut omated message] The system [employer] generated this result transmitted ref erence range: 0 - 0 /1 00 WBC. The refere nce range was not u sed to interpret this result as normal/abnor mal. % Neutros (test code = 66 % 429) % Lymphs (test code = 18 % 430) % Monos (test code = 11 % 431) % Eos (test code = 432) 2 % % Baso (test code = 437) 1 % # Neutros (test code = 3.18 See_Comment [Aut omated message] 670) The system [employer] generated this result transmitted ref erence range: 1.56 - 6 .13 K/L. The refe rence range was not u sed to interpret this result as normal/abnor mal. # Lymphs (test code = 0.88 See_Comment L [Auto mated message] 414) The system [employer] generated this result transmitted ref erence range: 1.18 - 3 .74 K/L. The refe rence range was not u sed to interpret this result as normal/abnor mal. # Monos (test code = 0.54 See_Comment H [Autom ated message] 415) The system [employer] generated this result transmitted ref erence range: 0.24 - 0 .36 K/L. The refe rence range was not u sed to interpret this result as normal/abnor mal. # Eos (test code = 416) 0.11 See_Comment [Au tomated message] The system [employer] generated this result transmitted ref erence range: 0.04 - 0 .36 K/L. The refe rence range was not u sed to interpret this result as normal/abnor mal. # Baso (test code = 417) 0.04 See_Comment [A utomated message] The system [employer] generated this result transmitted ref erence range: 0.01 - 0 .08 K/L. The refe rence range was not u sed to interpret this result as normal/abnor mal. Immature 1 % 0-1 Granulocytes-Relative (test code = 2801) Lab Interpretation (test Abnormal code = 20924-2) [facility] W/PLT COUNT & AUTO [id number] 05:48:00 Test Item Value Reference Range Interpretation Comments WHITE BLOOD CELL COUNT (BEAKER) 4.8 K/ L 3.5-10.5 (test code = 775) RED BLOOD CELL COUNT (BEAKER) 3.18 M/ L 3.93-5.22 L (test code = 761) HEMOGLOBIN (BEAKER) (test code = 8.4 GM/DL 11.2-15.7 L 410) HEMATOCRIT (BEAKER) (test code = 27.5 % 34.1-44.9 L 411) MEAN CORPUSCULAR VOLUME (BEAKER) 86.5 fL 79.4-94.8 (test code = 753) MEAN CORPUSCULAR HEMOGLOBIN 26.4 pg 25.6-32.2 (BEAKER) (test code = 751) MEAN CORPUSCULAR HEMOGLOBIN CONC 30.5 GM/DL 32.2-35.5 L (BEAKER) (test code = 752) RED CELL DISTRIBUTION WIDTH 15.8 % 11.7-14.4 H (BEAKER) (test code = 412) PLATELET COUNT (BEAKER) (test 323 K/CU MM 150-450 code = 756) MEAN PLATELET VOLUME (BEAKER) 8.3 fL 9.4-12.3 L (test code = 754) NUCLEATED RED BLOOD CELLS 0 /100 WBC 0-0 (BEAKER) (test code = 413) NEUTROPHILS RELATIVE PERCENT 66 % (BEAKER) (test code = 429) LYMPHOCYTES RELATIVE PERCENT 18 % (BEAKER) (test code = 430) MONOCYTES RELATIVE PERCENT 11 % (BEAKER) (test code = 431) EOSINOPHILS RELATIVE PERCENT 2 % (BEAKER) (test code = 432) BASOPHILS RELATIVE PERCENT 1 % (BEAKER) (test code = 437) NEUTROPHILS ABSOLUTE COUNT 3.18 K/ L 1.56-6.13 (BEAKER) (test code = 670) LYMPHOCYTES ABSOLUTE COUNT 0.88 K/ L 1.18-3.74 L (BEAKER) (test code = 414) MONOCYTES ABSOLUTE COUNT (BEAKER) 0.54 K/ L 0.24-0.36 H (test code = 415) EOSINOPHILS ABSOLUTE COUNT 0.11 K/ L 0.04-0.36 (BEAKER) (test code = 416) BASOPHILS ABSOLUTE COUNT (BEAKER) 0.04 K/ L 0.01-0.08 (test code = 417) IMMATURE GRANULOCYTES-RELATIVE 1 % 0-1 PERCENT (BEAKER) (test code = 2801) POCT-GLUCOSE [id number] 17:30:00 Test Item Value Reference Range Interpretation Comments POC-GLUCOSE METER 184 mg/dL 70-110 H : TESTED A T [facility] 6720 (BEAKER) (test code = [facility], 1538) 71840: E Commerce Solution Architect/Techni leah ID = [id number] for TO NO MADRIGAL POCT-GLUCOSE [id number] 13:38:00 Test Item Value Reference Range Interpretation Comments POC-GLUCOSE METER 188 mg/dL 70-110 H : TESTED A T [facility] 6720 (BEAKER) (test code = [facility] Adiana [facility], 1538) 66629: E Commerce Solution Architect/Techni leah ID = [id number] for TO NO MADRIGAL HEMODIALYSIS [id number] 11:45:00Rm Agrawal RN 11/16/2020 11:45 AM Pt dialyzed for 4 hra via left upper arm AVF. Tolerated treatment well, NET UF= 2 Liters as ordered. VS stable post HD, report off to floor nurse Cortney VALLADARES. Transferred back to her room via stretcher. Lab Results Component Value Date WBC 5.6 11/15/2020 HGB 8.4 (L) 11/15/2020 HCT 27.5 (L) 11/15/2020 MCV 86.5 11/15/2020 PLT 273 11/15/2020 Lab ResultsComponent Value Date HEPBSAG Nonreactive 11/05/2020 Lab Results Component Value Date HEPAIGM Nonreactive 09/06/2018 HEPBIGM Nonreactive 09/06/2018 HEPBCAB Nonreactive 09/06/2018 HEPCAB Reactive(A) 09/06/2018 Lab Results Component Value Date HIV1X2 Nonreactive 09/30/2014 Lab Results Component Value Date GLUCOSE 120 (H) 11/15/2020 CALCIUM 7.9 (L) 11/15/2020 NA 134 (L) 11/15/2020 K 3.6 11/15/2020 CO2 29 11/15/2020 CL 100 11/15/2020 BUN 15 11/15/2020 CREATININE 2.29 (H) 11/15/2020 Coag Profile: Protime Date Value Ref Range Status 11/13/2020 13.7 11.9 - 14.2 seconds Final INRDate Value Ref Range Status 11/13/2020 1.07 <=5.90 Final PTT Date Value Ref Range Status 11/09/2020 39.0 (H) 22.5 - 36.0 seconds [facility] [id number] 21:15:00 Test Item Value Reference Range Interpretation Comments POC-GLUCOSE METER 168 mg/dL 70-110 H : [facility] T [facility] (SmartRx) (test code = BRENDA Santiago [facility], 1538) 96335: E Commerce Solution Architect/Techni leah ID = [id number] for Diego James POCT-GLUCOSE [id number] 18:43:00 Test Item Value Reference Range Interpretation Comments POC-GLUCOSE METER 164 mg/dL 70-110 H : TESTED A T [facility] 6720 (SmartRx) (test code [facility], = 1538) 33183: E Commerce Solution Architect/Techni leah ID = [id number] for Yolanda Chairez TACROLIMUS [id number] 12:56:00 Test Item Value Reference Range Interpretation Comments TACROLIMUS BLOOD 6.0 ng/mL 10.0-20.0 L Test perfor med on Watson (SmartRx) (test code Architec t Immunoassay = 657) system with Chemiluminescen t Microparticle I mmunoassay (CMIA) tana mcmahon E Commerce Solution Architect ID - AAHAMIDPOCT-GLUCOSE [id number] 11:40:00 Test Item Value Reference Range Interpretation Comments POC-GLUCOSE METER 175 mg/dL 70-110 H : TESTED A T [facility] 6720 (BEAKER) (test code = [facility], 1538) 78367: E Commerce Solution Architect/Techni leah ID = [id number] for CARITO CROOKS BASIC METABOLIC [id number] 08:11:00 Test Item Value Reference Range Interpretation Comments SODIUM (BEAKER) 134 meq/L 136-145 L (test code = 381) POTASSIUM (BEAKER) 3.6 meq/L 3.5-5.1 (test code = 379) CHLORIDE (BEAKER) 100 meq/L 98-107 (test code = 382) CO2 (BEAKER) (test 29 meq/L 22-29 code = 355) BLOOD UREA NITROGEN 15 mg/dL 7-21 (BEAKER) (test code = 354) CREATININE (BEAKER) 2.29 mg/dL 0.57-1.25 H (test code = 358) GLUCOSE RANDOM 120 mg/dL 70-105 H (BEAKER) (test code = 652) CALCIUM (BEAKER) 7.9 mg/dL 8.4-10.2 L (test code = 697) EGFR (BEAKER) (test 21 mL/min/1.73 ESTIMA JUAN GFR IS code = 1092) sq m NOT ACCURATE CREATININE CLEARANCE IN PREDICTING GLOMERULAR FILTRATION RATE . ESTIMATED GFR I S NOT APPLICABLE FOR DIALYSIS PATIEN TS. E Commerce Solution Architect ID - PIAYA LPOCT-GLUCOSE [id number] 08:06:00 Test Item Value Reference Range Interpretation Comments POC-GLUCOSE METER 103 mg/dL 70-110 : TESTED A T [facility] 6720 (BEAKER) (test code = [facility], 1538) 87522: E Commerce Solution Architect/Techni leah ID = [id number] for VALERIY CARITO CBC W/PLT COUNT & AUTO [id number] 06:44:00 Test Item Value Reference Range Interpretation Comments WHITE BLOOD CELL COUNT (BEAKER) 5.6 K/ L 3.5-10.5 (test code = 775) RED BLOOD CELL COUNT (BEAKER) 3.18 M/ L 3.93-5.22 L (test code = 761) HEMOGLOBIN (BEAKER) (test code = 8.4 GM/DL 11.2-15.7 L 410) HEMATOCRIT (BEAKER) (test code = 27.5 % 34.1-44.9 L 411) MEAN CORPUSCULAR VOLUME (BEAKER) 86.5 fL 79.4-94.8 (test code = 753) MEAN CORPUSCULAR HEMOGLOBIN 26.4 pg 25.6-32.2 (BEAKER) (test code = 751) MEAN CORPUSCULAR HEMOGLOBIN CONC 30.5 GM/DL 32.2-35.5 L (BEAKER) (test code = 752) RED CELL DISTRIBUTION WIDTH 15.7 % 11.7-14.4 H (BEAKER) (test code = 412) PLATELET COUNT (BEAKER) (test 273 K/CU MM 150-450 code = 756) MEAN PLATELET VOLUME (BEAKER) 8.8 fL 9.4-12.3 L (test code = 754) NUCLEATED RED BLOOD CELLS 0 /100 WBC 0-0 (BEAKER) (test code = 413) NEUTROPHILS RELATIVE PERCENT 74 % (BEAKER) (test code = 429) LYMPHOCYTES RELATIVE PERCENT 13 % (BEAKER) (test code = 430) MONOCYTES RELATIVE PERCENT 9 % (BEAKER) (test code = 431) EOSINOPHILS RELATIVE PERCENT 2 % (BEAKER) (test code = 432) BASOPHILS RELATIVE PERCENT 1 % (BEAKER) (test code = 437) NEUTROPHILS ABSOLUTE COUNT 4.13 K/ L 1.56-6.13 (BEAKER) (test code = 670) LYMPHOCYTES ABSOLUTE COUNT 0.72 K/ L 1.18-3.74 L (BEAKER) (test code = 414) MONOCYTES ABSOLUTE COUNT (BEAKER) 0.49 K/ L 0.24-0.36 H (test code = 415) EOSINOPHILS ABSOLUTE COUNT 0.11 K/ L 0.04-0.36 (BEAKER) (test code = 416) BASOPHILS ABSOLUTE COUNT (BEAKER) 0.04 K/ L 0.01-0.08 (test code = 417) IMMATURE GRANULOCYTES-RELATIVE 2 % 0-1 H PERCENT (BEAKER) (test code = 2801) POCT-GLUCOSE [id number] 13:28:00 Test Item Value Reference Range Interpretation Comments POC-GLUCOSE METER 143 mg/dL 70-110 H : TESTED A T [facility] 6720 (BEAKER) (test code [facility], = 1538) 31544: E Commerce Solution Architect/Techni leah ID = [id number] for Yolanda Chairez POCT-GLUCOSE [id number] 08:37:00 Test Item Value Reference Range Interpretation Comments POC-GLUCOSE METER 132 mg/dL 70-110 H : TESTED A T [facility] 6720 (BEAKER) (test code = BRENDA Santiago [facility], 1538) 34387: E Commerce Solution Architect/Techni leah ID = [id number] for Renetta Valencia POCT-GLUCOSE [id number] 19:49:00 Test Item Value Reference Range Interpretation Comments POC-GLUCOSE METER 230 mg/dL 70-110 H : TESTED A T [facility] 6720 (BEAKER) (test code = [facility], 1538) 85298: E Commerce Solution Architect/Techni leah ID = [id number] for MEAGAN LAMA, ADA POCT-GLUCOSE [id number] 17:35:00 Test Item Value Reference Range Interpretation Comments POC-GLUCOSE METER 228 mg/dL 70-110 H : TESTED A T [facility] 6720 (BEAKER) (test code [facility], = 1538) 52768: E Commerce Solution Architect/Techni leah ID = [id number] for Yolanda Chairez Manual [id number] 12:40:00 Test Item Value Reference Range Interpretation Comments % Neutros (test code = 82 % 2816) % Lymphs (test code = 12 % 2817) % Monos (test code = 2 % 2818) % Eos (test code = 2819) 2 % % Metamyelo (test code = 1 % 0-0 H 282) % Myelo (test code = 1 % 0-0 H 282) # Neutros (test code = 4.43 K/ul 1.56-6.13 2830) # Lymphs (test code = 0.65 K/ul 1.18-3.74 L 2831) # Monos (test code = 0.11 K/uL 0.24-0.36 L 2832) # Eos (test code = 2834) 0.11 K/uL 0.04-0.36 # Metamyelo (test code = 0.05 K/uL 0-0 H 2836) # Myelo (test code = 0.05 K/uL 0-0 H 2837) Total Counted (test code 100 = 1351) WBC Morphology (test Normal code = 487) Platelet Morphology Normal (test code = 486) Anisocytosis (test code 1+ few = 961) Microcytes (test code = 1+ few 965) Poikilocytes (test code 2+ moderate = 966) Ovalocytes (test code = 2+ moderate 477) Artifact (test code = Present 3432) Platelet Conc (test code Adequate = 3438) BRADLY (test code = BRADLY) E Commerce Solution Architect ID - Kalani OverholtUser comments: Slide comments: Lab Interpretation (test Abnormal code = 48424-7) [facility] W/PLT COUNT & AUTO [id number] 12:40:00 Test Item Value Reference Range Interpretation Comments WHITE BLOOD CELL COUNT (BEAKER) 5.4 K/ L 3.5-10.5 (test code = 775) RED BLOOD CELL COUNT (BEAKER) 3.25 M/ L 3.93-5.22 L (test code = 761) HEMOGLOBIN (BEAKER) (test code = 8.6 GM/DL 11.2-15.7 L 410) HEMATOCRIT (BEAKER) (test code = 28.2 % 34.1-44.9 L 411) MEAN CORPUSCULAR VOLUME (BEAKER) 86.8 fL 79.4-94.8 (test code = 753) MEAN CORPUSCULAR HEMOGLOBIN 26.5 pg 25.6-32.2 (BEAKER) (test code = 751) MEAN CORPUSCULAR HEMOGLOBIN CONC 30.5 GM/DL 32.2-35.5 L (BEAKER) (test code = 752) RED CELL DISTRIBUTION WIDTH 15.6 % 11.7-14.4 H (BEAKER) (test code = 412) PLATELET COUNT (BEAKER) (test 220 K/CU MM 150-450 code = 756) MEAN PLATELET VOLUME (BEAKER) 9.1 fL 9.4-12.3 L (test code = 754) NUCLEATED RED BLOOD CELLS 0 /100 WBC 0-0 (BEAKER) (test code = 413) (CELLAVISION MANUAL DIFF)2020-11-13 12:40:00 Test Item Value Reference Range Interpretation Comments NEUTROPHILS - REL 82 % (CELLAVISION)(BEAKER) (test code = 2816) LYMPHOCYTES - REL 12 % (CELLAVISION)(BEAKER) (test code = 2817) MONOCYTES - REL 2 % (CELLAVISION)(BEAKER) (test code = 2818) EOSINOPHILS - REL 2 % (CELLAVISION)(BEAKER) (test code = 2819) METAMYELOCYTES - REL 1 % 0-0 H (CELLAVISION)(BEAKER) (test code = 2821) MYELOCYTES - REL 1 % 0-0 H (CELLAVISION)(BEAKER) (test code = 2822) NEUTROPHILS - ABS 4.43 K/ul 1.56-6.13 (CELLAVISION)(BEAKER) (test code = 2830) LYMPHOCYTES - ABS 0.65 K/ul 1.18-3.74 L (CELLAVISION)(BEAKER) (test code = 2831) MONOCYTES - ABS 0.11 K/uL 0.24-0.36 L (CELLAVISION)(BEAKER) (test code = 2832) EOSINOPHILS - ABS 0.11 K/uL 0.04-0.36 (CELLAVISION)(BEAKER) (test code = 2834) METAMYELOCYTES - ABS 0.05 K/uL 0.00-0.00 H (CELLAVISION)(BEAKER) (test code = 2836) MYELOCYTES-ABS 0.05 K/uL 0.00-0.00 H (CELLAVISION)(BEAKER) (test code = 2837) TOTAL COUNTED (BEAKER) (test code 100 = 1351) WBC MORPHOLOGY (BEAKER) (test Normal code = 487) PLT MORPHOLOGY (BEAKER) (test Normal code = 486) ANISOCYTOSIS (BEAKER) (test code 1+ few = 961) MICROCYTES (BEAKER) (test code = 1+ few 965) POIKILOCYTES (BEAKER) (test code 2+ moderate = 966) OVALOCYTES (BEAKER) (test code = 2+ moderate 477) ARTIFACT (CELLAVISION)(BEAKER) Present (test code = 3432) PLATELET CONCENTRATION Adequate (CELLAVISION)(BEAKER) (test code = 3438) E Commerce Solution Architect MILE - Kalani OverholtUser comments: Slide comments:POCT-GLUCOSE METER 2020-11-13 11:56:00 Test Item Value Reference Range Interpretation Comments POC-GLUCOSE METER 167 mg/dL 70-110 H : TESTED A T [facility] 6720 (BEAKER) (test code = BRENDA Santiago [facility], 1538) 71588: E Commerce Solution Architect/Techni leah ID = [id number] for DA VIS, DELILAH TACROLIMUS [id number] 10:28:00 Test Item Value Reference Range Interpretation Comments TACROLIMUS BLOOD 4.7 ng/mL 10.0-20.0 L Test perfor med on Watson (BEAKER) (test code Architec t Immunoassay = 657) system with Chemiluminescen t Microparticle I mmunoassay (CMIA) technolo gy. E Commerce Solution Architect ID - AAHAMIDPOCT-GLUCOSE [id number] 09:03:00 Test Item Value Reference Range Interpretation Comments POC-GLUCOSE METER 117 mg/dL 70-110 H : TESTED A T [facility] 6720 (BEAKER) (test code = BRENDA Santiago [facility], 1538) 87806: E Commerce Solution Architect/Techni leah ID = [id number] for DA VIS, DELILAH BASIC METABOLIC [id number] 07:59:00 Test Item Value Reference Range Interpretation Comments SODIUM (BEAKER) 131 meq/L 136-145 L (test code = 381) POTASSIUM (BEAKER) 3.7 meq/L 3.5-5.1 (test code = 379) CHLORIDE (BEAKER) 99 meq/L 98-107 (test code = 382) CO2 (BEAKER) (test 24 meq/L 22-29 code = 355) BLOOD UREA NITROGEN 22 mg/dL 7-21 H (BEAKER) (test code = 354) CREATININE (BEAKER) 3.08 mg/dL 0.57-1.25 H (test code = 358) GLUCOSE RANDOM 126 mg/dL 70-105 H (BEAKER) (test code = 652) CALCIUM (BEAKER) 7.4 mg/dL 8.4-10.2 L (test code = 697) EGFR (BEAKER) (test 15 mL/min/1.73 ESTIMA JUAN GFR IS code = 1092) sq m NOT ACCURATE CREATININE CLEARANCE IN PREDICTING GLOMERULAR FILTRATION RATE . ESTIMATED GFR I S NOT APPLICABLE FOR DIALYSIS PATIEN TS. E Commerce Solution Architect ID - KIRBY WProthrombin time/[id number] 07:03:00 Test Item Value Reference Interpretation Comments Range Protime (test code = 13.7 See_Comment [Autom ated 5902-2) message] The system which generated this result transmitted reference range : 11.9 - 14.2 seconds. The reference range was not used to interpret this result as normal/abnormal . INR (test code = 1.07 See_Comment [Automated 6301-6) message] The system which generated this result transmitted reference range : <=5.90. The reference range was not used to interpret this result as normal/abnormal . BRADLY (test code = RECOMMENDED BRADLY) COUMADIN/WARFARIN INR THERAPY RANGESSTANDARD DOSE: 2.0 - 3.0 Includes: PROPHYLAXIS for venous thrombosis, systemic embolization; TREATMENT for venous thrombosis and/or pulmonary embolus.HIGH RISK: Target INR is 2.5-3.5 for patients with mechanical heart valves. Lab Interpretation Normal (test code = 63886-5) [id number] 07:03:00 Test Item Value Reference Range Interpretation Comments PROTIME (BEAKER) 13.7 seconds 11.9-14.2 (test code = 759) INR (BEAKER) (test 1.07 See_Comment [Automat ed message] code = 370) The system [employer] generated this result transmitted ref erence range: <=5.90. The reference range was not used to int erpret this result as normal/abnormal . RECOMMENDED COUMADIN/WARFARIN INR THERAPY RANGESSTANDARD DOSE: 2.0 - 3.0 Includes: PROPHYLAXIS forvenous thrombosis, systemic embolization; TREATMENT for venous thrombosis and/or pulmonary embolus.HIGH RISK: Target INR is 2.5-3.5 for patients with mechanical heart valves.POCT-GLUCOSE [id number] 17:20:00 Test Item Value Reference Range Interpretation Comments POC-GLUCOSE METER 183 mg/dL 70-110 H : TESTED [facility] [address] (BEAKER) (test code = [place], 1538) [address]84: E [employer] Architect/Techni leah ID = [id number] for DA DELILAH THAO POCT-GLUCOSE [id number] 12:30:00 Test Item Value Reference Range Interpretation Comments POC-GLUCOSE METER 127 mg/dL 70-110 H : TESTED A T [facility] 67[address] (BEAKER) (test code = [place], 1538) 24441: [employer]/Techni leah ID = [id number] for DELILAH COLEY (CELLAVISION MANUAL DIFF)2020-11-12 10:32:00 Test Item Value Reference Range Interpretation Comments NEUTROPHILS - REL 75 % (CELLAVISION)(BEAKER) (test code = 2816) LYMPHOCYTES - REL 10 % (CELLAVISION)(BEAKER) (test code = 2817) MONOCYTES - REL 3 % (CELLAVISION)(BEAKER) (test code = 2818) EOSINOPHILS - REL 5 % (CELLAVISION)(BEAKER) (test code = 2819) METAMYELOCYTES - REL 2 % 0-0 H (CELLAVISION)(BEAKER) (test code = 2821) MYELOCYTES - REL 3 % 0-0 H (CELLAVISION)(BEAKER) (test code = 2822) ATYPICAL LYMPHOCYTES - REL 1 % 0-0 H (CELLAVISION)(BEAKER) (test code = 2829) NEUTROPHILS - ABS 3.08 K/ul 1.56-6.13 (CELLAVISION)(BEAKER) (test code = 2830) LYMPHOCYTES - ABS 0.41 K/ul 1.18-3.74 L (CELLAVISION)(BEAKER) (test code = 2831) MONOCYTES - ABS 0.12 K/uL 0.24-0.36 L (CELLAVISION)(BEAKER) (test code = 2832) EOSINOPHILS - ABS 0.21 K/uL 0.04-0.36 (CELLAVISION)(BEAKER) (test code = 2834) METAMYELOCYTES - ABS 0.08 K/uL 0.00-0.00 H (CELLAVISION)(BEAKER) (test code = 2836) MYELOCYTES-ABS 0.12 K/uL 0.00-0.00 H (CELLAVISION)(BEAKER) (test code = 2837) ATYPICAL LYMPHOCYTES - ABS 0.04 K/uL 0.00-0.00 H (CELLAVISION)(BEAKER) (test code = 5988) TOTAL COUNTED (BEAKER) (test code = 100 1351) GIANT PLATELETS (BEAKER) (test code Present = 313) LARGE PLT(BEAKER) (test code = Present 2156) PLASMA CELLS(BEAKER) (test code = Present 2151) POLYCHROMATOPHILLIC RBCS(BEAKER) 1+ few (test code = 478) HYPOCHROMIA (BEAKER) (test code = 1+ few 963) ANISOCYTOSIS (BEAKER) (test code = 1+ few 961) MICROCYTES (BEAKER) (test code = 1+ few 965) POIKILOCYTES (BEAKER) (test code = 1+ few 966) SICKLE CELLS (BEAKER) (test code = 1+ few 767) ELLIPTOCYTES (BEAKER) (test code = 1+ few 962) OVALOCYTES (BEAKER) (test code = 1+ few 477) ARTIFACT (CELLAVISION)(BEAKER) Present (test code = 3432) PLATELET CONCENTRATION Adequate (CELLAVISION)(BEAKER) (test code = 3438) [employer] ID - Virgie Kellogg comments: Slide comments:CBC W/PLT COUNT & AUTO [id number] 10:31:00 Test Item Value Reference Range Interpretation Comments WHITE BLOOD CELL COUNT (BEAKER) 4.1 K/ L 3.5-10.5 (test code = 775) RED BLOOD CELL COUNT (BEAKER) 3.42 M/ L 3.93-5.22 L (test code = 761) HEMOGLOBIN (BEAKER) (test code = 9.0 GM/DL 11.2-15.7 L 410) HEMATOCRIT (BEAKER) (test code = 30.3 % 34.1-44.9 L 411) MEAN CORPUSCULAR VOLUME (BEAKER) 88.6 fL 79.4-94.8 (test code = 753) MEAN CORPUSCULAR HEMOGLOBIN 26.3 pg 25.6-32.2 (BEAKER) (test code = 751) MEAN CORPUSCULAR HEMOGLOBIN CONC 29.7 GM/DL 32.2-35.5 L (BEAKER) (test code = 752) RED CELL DISTRIBUTION WIDTH 15.8 % 11.7-14.4 H (BEAKER) (test code = 412) PLATELET COUNT (BEAKER) (test 207 K/CU MM 150-450 code = 756) MEAN PLATELET VOLUME (BEAKER) 9.0 fL 9.4-12.3 L (test code = 754) NUCLEATED RED BLOOD CELLS 0 /100 WBC 0-0 (BEAKER) (test code = 413) TACROLIMUS [id number] 09:12:00 Test Item Value Reference Range Interpretation Comments TACROLIMUS BLOOD 3.3 ng/mL 10.0-20.0 L Test perfor med on Watson (BEAKER) (test code Architec t Immunoassay = 657) system with Chemiluminescen t Microparticle I mmunoassay (CMIA) technolo gy. [employer] Architect ID - AAHAMIDPOCT-GLUCOSE [id number] 09:02:00 Test Item Value Reference Range Interpretation Comments POC-GLUCOSE METER 153 mg/dL 70-110 H : TESTED A T [facility] (BEAKER) (test code = BRENDA Jack [facility], 1538) [address]: [employer] Solution Architect/Techni leah ID = [id number] for DA VIS, DELILAH PROTHROMBIN TIME/[id number] 06:19:00 Test Item Value Reference Range Interpretation Comments PROTIME (BEAKER) 13.7 seconds 11.9-14.2 (test code = 759) INR (BEAKER) (test 1.07 See_Comment [Automat ed message] code = 370) The system [employer] generated this result transmitted ref erence range: <=5.90. The reference range was not used to int erpret this result as normal/abnormal . RECOMMENDED COUMADIN/WARFARIN INR THERAPY RANGESSTANDARD DOSE: 2.0 - 3.0 Includes: PROPHYLAXIS forvenous thrombosis, systemic embolization; TREATMENT for venous thrombosis and/or pulmonary embolus.HIGH RISK: Target INR is 2.5-3.5 for patients with mechanical heart valves.BASIC METABOLIC [id number] 06:12:00 Test Item Value Reference Range Interpretation Comments SODIUM (BEAKER) 136 meq/L 136-145 (test code = 381) POTASSIUM (BEAKER) 3.5 meq/L 3.5-5.1 (test code = 379) CHLORIDE (BEAKER) 101 meq/L 98-107 (test code = 382) CO2 (BEAKER) (test 28 meq/L 22-29 code = 355) BLOOD UREA NITROGEN 14 mg/dL 7-21 (BEAKER) (test code = 354) CREATININE (BEAKER) 2.33 mg/dL 0.57-1.25 H (test code = 358) GLUCOSE RANDOM 122 mg/dL 70-105 H (AKER) (test code = 652) CALCIUM (BEAKER) 7.9 mg/dL 8.4-10.2 L (test code = 697) EGFR (BEAKER) (test 21 mL/min/1.73 ESTIMA JUAN GFR IS code = 1092) sq m NOT ACCURATE CREATININE CLEARANCE IN PREDICTING GLOMERULAR FILTRATION RATE . ESTIMATED GFR I S NOT APPLICABLE FOR DIALYSIS PATIEN TS. [employer] Architect ID - JAYLEN MPOCT-GLUCOSE [id number] 11:24:00 Test Item Value Reference Range Interpretation Comments POC-GLUCOSE METER 145 mg/dL 70-110 H : TESTED A T [facility] 6720 ([facility]) (test code = [facility], 1538) [address]: E [employer] Solution Architect/Techni leah ID = [id number] for Mu sic, Asima TACROLIMUS [id number] 08:47:00 Test Item Value Reference Range Interpretation Comments TACROLIMUS BLOOD 5.1 ng/mL 10.0-20.0 L Test perfor med on Watson ([facility]) (test code Architec t Immunoassay = 657) system with Chemiluminescen t Microparticle I mmunoassay (CMIA) tana fletcher. [employer] Solution Architect ID - AAHAMIDPOCT-GLUCOSE [id number] 07:53:00 Test Item Value Reference Range Interpretation Comments POC-GLUCOSE METER 123 mg/dL 70-110 H : TESTED A T [facility] 6720 ([facility]) (test code = [facility], 1538) [address]: E [employer] Solution Architect/Techni leah ID = [id number] for Mu sic, Asima CBC W/PLT COUNT & AUTO [id number] 07:30:00 Test Item Value Reference Range Interpretation Comments WHITE BLOOD CELL COUNT (AKER) 4.0 K/ L 3.5-10.5 (test code = 775) RED BLOOD CELL COUNT (AKER) 3.13 M/ L 3.93-5.22 L (test code = 761) HEMOGLOBIN (BEAKER) (test code = 8.3 GM/DL 11.2-15.7 L 410) HEMATOCRIT (AKER) (test code = 27.7 % 34.1-44.9 L 411) MEAN CORPUSCULAR VOLUME (BEAKER) 88.5 fL 79.4-94.8 (test code = 753) MEAN CORPUSCULAR HEMOGLOBIN 26.5 pg 25.6-32.2 (BEAKER) (test code = 751) MEAN CORPUSCULAR HEMOGLOBIN CONC 30.0 GM/DL 32.2-35.5 L (BEAKER) (test code = 752) RED CELL DISTRIBUTION WIDTH 15.7 % 11.7-14.4 H (BEAKER) (test code = 412) PLATELET COUNT (BEAKER) (test 174 K/CU MM 150-450 code = 756) MEAN PLATELET VOLUME (BEAKER) 9.3 fL 9.4-12.3 L (test code = 754) NUCLEATED RED BLOOD CELLS 0 /100 WBC 0-0 (BEAKER) (test code = 413) (CELLAVISION MANUAL DIFF)2020-11-11 07:30:00 Test Item Value Reference Range Interpretation Comments NEUTROPHILS - REL 72 % (CELLAVISION)(BEAKER) (test code = 2816) LYMPHOCYTES - REL 18 % (CELLAVISION)(BEAKER) (test code = 2817) MONOCYTES - REL 5 % (CELLAVISION)(BEAKER) (test code = 2818) EOSINOPHILS - REL 4 % (CELLAVISION)(BEAKER) (test code = 2819) ATYPICAL LYMPHOCYTES - REL 1 % 0-0 H (CELLAVISION)(BEAKER) (test code = 2829) NEUTROPHILS - ABS 2.88 K/ul 1.56-6.13 (CELLAVISION)(BEAKER) (test code = 2830) LYMPHOCYTES - ABS 0.72 K/ul 1.18-3.74 L (CELLAVISION)(BEAKER) (test code = 2831) MONOCYTES - ABS 0.20 K/uL 0.24-0.36 L (CELLAVISION)(BEAKER) (test code = 2832) EOSINOPHILS - ABS 0.16 K/uL 0.04-0.36 (CELLAVISION)(BEAKER) (test code = 2834) ATYPICAL LYMPHOCYTES - ABS 0.04 K/uL 0.00-0.00 H (CELLAVISION)(BEAKER) (test code = 1498) TOTAL COUNTED (BEAKER) (test code 100 = 1351) MANUAL NRBC PER 100 CELLS (BEAKER) 1 /100 WBC 0-0 H (test code = 1353) WBC MORPHOLOGY (BEAKER) (test code Normal = 487) PLT MORPHOLOGY (BEAKER) (test code Normal = 486) POLYCHROMATOPHILLIC RBCS(BEAKER) 1+ few (test code = 478) POIKILOCYTES (BEAKER) (test code = 1+ few 966) ARTIFACT (CELLAVISION)(BEAKER) Present (test code = 3432) PLATELET CONCENTRATION Adequate (CELLAVISION)(BEAKER) (test code = 3438) [employer] Solution Architect ID - Kalani OverholtUser comments: Slide comments:BASIC METABOLIC PANEL 2020-11-11 07:06:00 Test Item Value Reference Range Interpretation Comments SODIUM (BEAKER) 133 meq/L 136-145 L (test code = 381) POTASSIUM (BEAKER) 3.6 meq/L 3.5-5.1 (test code = 379) CHLORIDE (BEAKER) 101 meq/L 98-107 (test code = 382) CO2 (BEAKER) (test 23 meq/L 22-29 code = 355) BLOOD UREA NITROGEN 30 mg/dL 7-21 H (BEAKER) (test code = 354) CREATININE (BEAKER) 3.89 mg/dL 0.57-1.25 H (test code = 358) GLUCOSE RANDOM 149 mg/dL 70-105 H (BEAKER) (test code = 652) CALCIUM (BEAKER) 7.3 mg/dL 8.4-10.2 L (test code = 697) EGFR (BEAKER) (test 12 mL/min/1.73 ESTIMA JUAN GFR IS code = 1092) sq m NOT ACCURATE CREATININE CLEARANCE IN PREDICTING GLOMERULAR FILTRATION RATE . ESTIMATED GFR I S NOT APPLICABLE FOR DIALYSIS PATIEN TS. [employer] Architect ID - ROOPAPROTHROMBIN TIME/[id number] 06:17:00 Test Item Value Reference Range Interpretation Comments PROTIME (BEAKER) 13.9 seconds 11.9-14.2 (test code = 759) INR (BEAKER) (test 1.09 See_Comment [Automat ed message] code = 370) The system [employer] generated this result transmitted ref erence range: <=5.90. The reference range was not used to int erpret this result as normal/abnormal . RECOMMENDED COUMADIN/WARFARIN INR THERAPY RANGESSTANDARD DOSE: 2.0 - 3.0 Includes: PROPHYLAXIS forvenous thrombosis, systemic embolization; TREATMENT for venous thrombosis and/or pulmonary embolus.HIGH RISK: Target INR is 2.5-3.5 for patients with mechanical heart valves.Blood Culture - Routine (Right Venipuncture)2020-11-10 14:01:00 Test Item Value Reference Range Interpretation Comments Result (test code = No growth in 5 days 6463-4) BRADLY (test code = BRADLY) The specimen volume collected for this blood culture was below the optimum (10 mL per bottle or 20 mL total). Use of lower volumes may adversely affect recovery and/or detection times of some organisms. [facility] [id number] 14:01:00 Test Item Value Reference Range Interpretation Comments CULTURE (BEAKER) (test No growth in 5 days code = 1095) The specimen volume collected for this blood culture was below the optimum (10 mL per bottle or 20 mL total). Use of lower volumes may adversely affect recovery and/or detection times of some organisms.BLOOD [id number] 14:01:00 Test Item Value Reference Range Interpretation Comments CULTURE (BEAKER) (test No growth in 5 days code = 1095) TACROLIMUS [id number] 08:28:00 Test Item Value Reference Range Interpretation Comments TACROLIMUS BLOOD 4.9 ng/mL 10.0-20.0 L Test perfor med on Watson (BEAKER) (test code Architec t Immunoassay = 657) system with Chemiluminescen t Microparticle I mmunoassay (CMIA) technolo gy. [employer] Solution Architect ID - AAHAMIDHemoglobin [id number] 07:39:00 Test Item Value Reference Range Interpretation Comments Hemoglobin A1C (test code = 4548-4) 6.2 % 4.3-6.1 H Lab Interpretation (test code = Abnormal 48406-8) [facility] [id number] 07:39:00 Test Item Value Reference Range Interpretation Comments HEMOGLOBIN A1C (BEAKER) (test code = 6.2 % 4.3-6.1 H 368) POCT-GLUCOSE [id number] 07:33:00 Test Item Value Reference Range Interpretation Comments POC-GLUCOSE METER 153 mg/dL 70-110 H : TESTED A T [facility] 6720 (BEAKER) (test code = [place], 1538) [address]: E Commerce Solution Architect/Techni leah ID = [id number] for Thais Guzmán BASIC METABOLIC [id number] 06:49:00 Test Item Value Reference Range Interpretation Comments SODIUM (BEAKER) 135 meq/L 136-145 L (test code = 381) POTASSIUM (BEAKER) 3.8 meq/L 3.5-5.1 (test code = 379) CHLORIDE (BEAKER) 105 meq/L 98-107 (test code = 382) CO2 (BEAKER) (test 24 meq/L 22-29 code = 355) BLOOD UREA NITROGEN 21 mg/dL 7-21 (BEAKER) (test code = 354) CREATININE (BEAKER) 2.66 mg/dL 0.57-1.25 H (test code = 358) GLUCOSE RANDOM 186 mg/dL 70-105 H (BEAKER) (test code = 652) CALCIUM (BEAKER) 7.6 mg/dL 8.4-10.2 L (test code = 697) EGFR (BEAKER) (test 18 mL/min/1.73 ESTIMA JUAN GFR IS code = 1092) sq m NOT ACCURATE CREATININE CLEARANCE IN PREDICTING GLOMERULAR FILTRATION RATE . ESTIMATED GFR I S NOT APPLICABLE FOR DIALYSIS PATIEN TS. [employer] Solution Architect ID - JAYLEN MPROTHROMBIN TIME/[id number] 06:02:00 Test Item Value Reference Range Interpretation Comments PROTIME (BEAKER) 14.4 seconds 11.9-14.2 H (test code = 759) INR (BEAKER) (test 1.14 See_Comment [Automat ed message] code = 370) The system [employer] generated this result transmitted ref erence range: <=5.90. The reference range was not used to int erpret this result as normal/abnormal . RECOMMENDED COUMADIN/WARFARIN INR THERAPY RANGESSTANDARD DOSE: 2.0 - 3.0 Includes: PROPHYLAXIS forvenous thrombosis, systemic embolization; TREATMENT for venous thrombosis and/or pulmonary embolus.HIGH RISK: Target INR is 2.5-3.5 for patients with mechanical heart valves.CBC W/PLT COUNT & AUTO DIFFERENTIAL 2020-11-10 05:47:00 Test Item Value Reference Range Interpretation Comments WHITE BLOOD CELL COUNT (BEAKER) 4.0 K/ L 3.5-10.5 (test code = 775) RED BLOOD CELL COUNT (BEAKER) 3.26 M/ L 3.93-5.22 L (test code = 761) HEMOGLOBIN (BEAKER) (test code = 8.6 GM/DL 11.2-15.7 L 410) HEMATOCRIT (BEAKER) (test code = 28.8 % 34.1-44.9 L 411) MEAN CORPUSCULAR VOLUME (BEAKER) 88.3 fL 79.4-94.8 (test code = 753) MEAN CORPUSCULAR HEMOGLOBIN 26.4 pg 25.6-32.2 (BEAKER) (test code = 751) MEAN CORPUSCULAR HEMOGLOBIN CONC 29.9 GM/DL 32.2-35.5 L (BEAKER) (test code = 752) RED CELL DISTRIBUTION WIDTH 15.5 % 11.7-14.4 H (BEAKER) (test code = 412) PLATELET COUNT (BEAKER) (test 178 K/CU MM 150-450 code = 756) MEAN PLATELET VOLUME (BEAKER) 8.9 fL 9.4-12.3 L (test code = 754) NUCLEATED RED BLOOD CELLS 0 /100 WBC 0-0 (BEAKER) (test code = 413) NEUTROPHILS RELATIVE PERCENT 63 % (BEAKER) (test code = 429) LYMPHOCYTES RELATIVE PERCENT 19 % (BEAKER) (test code = 430) MONOCYTES RELATIVE PERCENT 10 % (BEAKER) (test code = 431) EOSINOPHILS RELATIVE PERCENT 5 % (BEAKER) (test code = 432) BASOPHILS RELATIVE PERCENT 1 % (BEAKER) (test code = 437) NEUTROPHILS ABSOLUTE COUNT 2.52 K/ L 1.56-6.13 (BEAKER) (test code = 670) LYMPHOCYTES ABSOLUTE COUNT 0.74 K/ L 1.18-3.74 L (BEAKER) (test code = 414) MONOCYTES ABSOLUTE COUNT (BEAKER) 0.39 K/ L 0.24-0.36 H (test code = 415) EOSINOPHILS ABSOLUTE COUNT 0.19 K/ L 0.04-0.36 (BEAKER) (test code = 416) BASOPHILS ABSOLUTE COUNT (BEAKER) 0.02 K/ L 0.01-0.08 (test code = 417) IMMATURE GRANULOCYTES-RELATIVE 3 % 0-1 H PERCENT (BEAKER) (test code = 2801) POCT-GLUCOSE [id number] 22:28:00 Test Item Value Reference Range Interpretation Comments POC-GLUCOSE METER 220 mg/dL 70-110 H : TESTED A T [facility] (BEAKER) (test code = [place], 1538) [address]: E Commerce Solution Architect/Techni leah ID = [id number] for VINICIO TORRES Tissue [id number] 13:34:00 Test Item Value Reference Range Interpretation Comments Case Report (test code Surgical Pathology = 104) Report Case: [id number] Authorizing Provider: Madelyn Segal MD Collected: 11/04/2020 12:35 PM Ordering Location: [facility] Received: 11/04/2020 03:25 PM SERVICES Pathologist: Donnie Otoole MD Specimen: Large Intestine, Colon - Right/Ascending, Right Colon with Appendix DIAGNOSIS (test code = [id number] 3220) uZzEwMzNcZnRuYmpcdWMxIH tccnRmMVxlcGljOTIwMlxhb bZrVQBisXDhT5EpmnvxNWzi NF0vEO4soJtckHGyfVSdOGR mVpWuz7atd104vBGes6nmGA PEldmxfFs5gNhjH70of0L7J kddN74twJGmHOjvyXInlpue dzJbHLCQMN7FTLGQGByJFSq wKFOSWDzOFSmlVHjLOF8gMZ 5EIEFQUEVORElYLCBSSUdIV QMKFV5FG78WCAPEH89WMElI BDciWWBIIS4FQTSLQ40VTTv amAUhLF6bYAEnKGTFLtPGMW JEPVKRTDGAO1DLLhroL3RRS C9qrMLkIZ6nFSUlZPuEVQ7U WTODHW8VU87RHEfgVpKWQd1 CJJYjNW7NONTRDd4OLRiwQG tAZIYVZ1RTDHgARlHXC8zWI lxwYXIgLSAgICBBUFBFTkRJ BZTAHPCPKM0NLUIKKJlZG1F USUMgQUxURVJBVElPTlxwYX MyJKYlLNFBP3hGOcRHZKLES R7nXcvJSrgUBERxejSdEEDx XIxJCFSWKX5FReuXUsNIEPL FTPJTQ9HPVM0MF80HLSdiVo PKRg7KXZRvgBUxRO5jJHGuC 6CSZX1fFZiSSBltFi2HHEWh W4jUXFSRUZIXIMkTIMRQIID HC3INZLnyVehnCQUpqgZxYQ VnDKMLTLWRB60OHE1QBUEgf u77XII6GkFvz2R3GQI1AVBe ECZgs9voEJBtiQChKnSsJwS cZnRuYmpcdWMxXGRlZmYwe1 owo586rIXrs8evOHQgLzV1p WUyZVOxdFKpX058AHYuZQxe e2ppv0EwVDLqrSHzt9L8VVD TmaaebJa6eMwyL60ur2O1En mcP0orODMkOUOjE3HlJK0cA XHgKpz3LZZ8JCK0CKSaINBl P2TjEZ5uFFEiiRVcFFw0t9v acYatYTVmASW6x9rzAWzrzl CzQM6fwe7uoLo5y9gsdwHoB ONgQMPqaQPQBFIaA1WvsDoh Nw2apNl2iRnaRyeaPZA1Gxn 7JY3vkx71nsc7uInaWZXtta npFzD6DOirUWLudbhjKTc7K UxoHUMhhEU6WYVfaZTyA3Ry IYOxWM6juhk1MLW5ICftOTS tEqR2OZJknCItOCDjiOztYM dyb025RUW1QnXhZF6jV7Xjj 0O8uJ7wtPCfGAWdmCQgGhXj EGKlcd3hvVLlYWtct2QuVSV 3xeG7lWKueCYlWBRqYyB6LO lrWD2vyf21ZTXiQYJ4vu1of MKoqUeylgMpiWIcDJccM5Jz ZHApk771BZLvH5TtDZErj1R 6jiGrTtZxIIGvmHU7beL6HJ IiAD6ppjlcc1rvHNmqXCumD IKiwkQ7xeV8EOGjeURnA2Jv lY6yEKWjFA5wazmsg1hvGXD 4WIbvAUSySSX4AyLuIRZcs1 Lddoe1RcInd2SmuOUwUAphZ 67ia669RJYtngZmO5nhfDIp eiypzAVubzqwZDqymfZ7CQD mDVjfbliyGRDnBRzzJ7pvKk UzFNOhoVfzKFqpu2MlDQSsT WBqPsNtbYKoRRWrDvj2UVEr dJTnIVEbXcMfS9tbhoygJmU GIYMet5rjV2qwhVCZjYNuK0 QgUGhvbmUgTGluZTogODMyL AZ7SX26EDeyFYJccp26 COMMENT (test code = r3xlsHHbCLExgKX6DeCsXOE 3359) sh5gcq4NkvPSbxLBqETvafG GxucIfal45sBO1nK47BP0rK IMoUvB5MBDaxcY0Obw9OPUp TLUagFQwI842f4mcu1lgqrR tlXR2nAfwIHAeJYJaMOfzQE BsDjHaQi4yiChwr27nfBLlx zM7GZSkxPrexGgkWIxyUWMs DK5mKPsnGEK3 CPT Code(s) (test code e7sggRVxUOSjsGD3ZnAsJKU = 3357) zi2hme8PvaYGviPXwDWwbzO TzmxAarl87lBW9dS29DN6gL YUmFnT0KPVzqaD6Lfa2HIRy OVLxmSByW754j7uku4niusX mrDJ5wEgiZFRjOXExJTsqUA ZzMjAgODgzMDdccGFyfQ== CLINICAL HISTORY (test e8tyvYVoHUUjjCE2EfNqVXT code = 3356) bu3xdr4EhxIQpvGTtBOfkhS YucxXbkl75iEH8qL11MC6kF WXjYbJ1YHGmbnO5Jtz4AVKn OMXlgCNsF113x2dna4arnbQ xvMM2cWrqMUBuBPYrIXpjMQ NuHjDkESQis03caoLrBSAmt W9diQAivL== SPECIMEN SOURCE (test a3ontJWzQJWdlJK5VtBqOMU code = 3377) pt7pjm5AlyLFdoSRiDEkqrI FwuiOlkv68fLT4xX59VD5zN BQeWgR2FKKgosA7Uck0BYRv TTWuqWCzS918v1ulo5rvhoR cpCC5kYlfXNJjCGWnTSlzMI WfVhReESSeVB0lwE7aQQFsl H6gDMGoth7= GROSS DESCRIPTION q2bpcRLnKCLyvWCyAxEtXTB (test code = 3366) sRJLnl7vtLQGplIWvZsPvJg NcZnRuYmpcdWMxXGRlZmYwe 7kia028wCIno4mkKFUgCkK2 vKEzXNQgaEPlF591KODpUAb gj5ybl4XhOQDeoGPss9D9KY PCqeqajYd4jVcmI80kk4K2N wneF6ypLBCdTVDkE4FpAO5k KKHsUbh9GDR9ANS0FUWqNFK wX3XiWU0bVOIkhCNuRIy4h9 bsmZzkNQHtMIB4n2czEEayb iIlUC5xje2tsEo0s2vnavZa LWRoONWbhRKIVJBxA8TclFo dOq9hyAg2wCyuZercFDZ2Op c7WB7rtt28kvt9bGwuKGKjv dtjMtS7JAyyRMGzdogqSXh4 MFxtYXJnbDcyMFxtYXJncjc yMFxtYXJndDcyMFxtYXJnYj nlLElgKJSoSIH6ZOrlo962E TQ2OVjlk8yas0xlfYLzZpt7 QYRhIfTnAowbVCjbm5Gdr5p fXALeiu0fRXL5iNVcwZugj9 N9fVOnBEIutCJdpiRgZJYrV uC7LNxlVS5ddn73ZDRkRUS0 mq5fyBBqnPhhlxOvnALiCTi lD7SmCHBlz805ZSIsG4DdYX Gel2T8jzEpQpTmQTHfbRY6i eC0BBEcRUf3oUOqxiP0nhKg fSFfG3hnsP37YvWxdENxI9I ylP07FuBnjGTfT0RjvR59Vh QofHTwL9JbxZ35OjBaqCNzC UYnoAVrBd3pbWNqbWJua8Le lZKiZPloT52qp005JZLykfG kE4ilsHIjwpqrlSRvpedkOQ pxpoI4XKSuBBTpXXokRQLmD GZzMjBcbGFuZzEwMzNcaGlj wAjuBIegBfLlDNBzAWcgD4n cZjFcZnMyMCBSZWNlaXZlZC BmcmVzaCBsYWJlbGVkIHRoZ HEmNMOhPC68E5FarsAcXHvt VZBpWGLmlN7tNW51oGZmfpZ ocuGnDeZoW1f9BFJgvU0hVA wdoEkgMXUhEW0shNvmABeiQ EAvZWZhCCUheILplgXwBW7y sZvvLjspOZ6uOVgiGPCrfXA fbuQyyWGbICEqoyMpm2zmtm G8aVCyAEKqIPLgTIWlPYKfz STjUzZldPVoO5tlGZLqRFWz B49ceUGsMnV7DUNzPKOyIXB ddRBjrtGhOI1mkTuaIgjhAn 1dYPTqXPsbVHAiUY5lzBKvY FXwbt9vqwDwQJffWQZyOMIi ziPfMYT5NjSlE20vhT6hcDM uR6DgXFI6BKUpATDdgIAbzg DgjXJmAYUowoFwjy4cp3c6S HVucmVtYXJrYWJsZSBhcHBl hgBaxI2zaILpVKWzqjGBvOC zl1Grw1PoVKqwDVD1myBwDY 6tkV1hJSQupwVbp84fzyTpn Mu3XHQ8tqXkS6NbQMJ8VM95 jKJerJvtLCQpfDSwpX5rpfU wfoZuQPxsaTladROcLMN5Ju EykBV0JwHlJ20mIVJap8opY 8QhGN2dTLPhQZWvgFI9xHWq R4DzxD0yl8p5uOHzGHA9xSD cVM0mEAFkRJWoeTMbiD0ibd KqreMmmFEsUICdiT1gheN9K VTwXFLxSFV7SbGvE02iAAAc WFSyEdIctzKhpm0qkWPjsul dzaVarz49uWFnzTUoq9BmBY X8RKPzPFZnYDY4kYuuyAmah 4WhB9ZaNLYudYDtLWUpTEVk s2PtzcGorjosD76yn61tfEn vcFMpxiM1CmHhE67kPdWozF U6cTYjvHQdvWudGHwdfNSwD 0clPLGnWXHoCh8qSYCvRBNh o22neGcyNNMpk0QjeROdJCU whD8sRVECsHEhVWUrfhDrWS BiWAV4RIGsDURwjSIfblZvZ Z3nOWNxEIP3AJ1yYKchHl1t BEstbBWlXD6craPvNOicXiD xnUJvf0JhKRJimIpzPUNvs2 KqjMYpe5WcdzCzqynuX19ad 07cfZjzsOCqmdNlGu0sBISk VCWyq04phGdkAUMzj3gqwCB hHO0zaqdteuQclpRgTy62CC FyKVVpt46saDhrUVFtz8Dwe ENwGWDrgE4vSORFKBC7dG4y nN7pSHZgnaWmfHXdVIE4IKk mWZPkosheaapenB2alYyyS7 zbMCViDAXrf33dZT9iGHRkD eHkrH0oXH9qRQTak1NzREYa BAsgd2ezexGmt6FlrICyPk8 bBOTyl77aCECbKVDfkr2ff1 i5ICUejVBkR1ktrVTyYpVoH 9LqjEuzohowBeUqPpU7rMXl mDUkGQ16ETW3EXYsodWtjOS rHl7pPZfeSMAnNYYqj3ZxaZ Ubm5ZliLQoDM9pCPMumf9nF otlXVKwPP9zrIVcjw6er5y3 UUQtzBYmB7azxXPoLbKsZmR fgvCoYJ16DKXqvhWrn0BxdO zmzvGuFIUyBOV6Lh7vcWMoN ENeatClu7uip5ajEmfoQLGn wYQjEBIuP5Xuo83fN98lZWf wYXIgQTEtcHJveGltYWwgYW 4lWILhq5AapNJkq0zgcGDtE SWcqP2oYIIoDWJpX3UwfLHo RMTsMQX4eNLsYWXrHDOmWCS zaWOpNVE0tZwdESWzXTAiB7 NbmB2phFDqGGY7VSuyKZ9kC TZfiFP3PIj7MDdhNVDaALGu cvPwkp50oNVmYUImDN2ydW7 bWJDyxU6fDT39O45mOMcyCD FbDXHcACnisFVnx2CpzHRcf AOxQRThKQ1agN1qVENsgM9v LE85Y68uLWsbkM2ozMBvQPV rcDauGYM0TDDvqcSZKAhsGE OyVJ6ifIfihKDeIJHmDIFhv GFiKV07ORWuHbTlIDTezQ1l gDVlGPHeDSLxhLNic0IgxDY jtHWuvHXnBA70WSHyKjAuCF PlyQJaFQUqXZPnVTKce1Lem SLbRDKovK2djYDyu2MoQUOl oQFjE9ZmHVpiJWYsTSOjXf4 dPBQxo9IjCbpwMLi1xJFlXT 4pCYEuSOKqr5AhkHJgICDhx eGRGOV4FWLrlT9sm0zylXOq yMdvtCkply7eYVXtnPMzQWB elxAYfDiowpADakk5UGvrYC MsIFBBLCBIVCAoQVNDUClcc GFyfQ== MICROSCOPIC x7iicVRnNACzjDR1FzAvWKF DESCRIPTION (test code ft3hnn2BlpHEujKIrWSqduW = 3371) EtkgWoiu80tEP0qU61YH6rD UBuJeH0DMNqfpZ6Kes7SNZi YVQqtTMiA880d9sjy2tuirZ weZJ8nWpvMBWsPYEkHRaoDY QcZtTwQMDtAh3wmTMlSjfeH XJ9 Gross assessment was [facility] performed at ([facility], code = 2777) Department of Pathology, [address] [place], [place] [id number], Technical component [facility] was performed at ([facility], code = 2778) Department of Pathology, [address] [place] [id number], Professional component [facility] was performed at ([facility], code = 2779) Department of Pathology, [address] [place] [id number], [facility] [id number] 13:34:00Surgical Pathology Report Case: [id number] Authorizing Provider: Madelyn Segal MD Collected: 11/04/2020 12:35 PM Ordering Location: [facility] Received: 11/04/2020 03:25 PM SERVICES Pathologist: Donnie Otoole MD Specimen: Large Intestine, Colon - Right/Ascending, Right Colon with Appendix COLON, RIGHT, TERMINAL ILEUM AND APPENDIX, RIGHT HEMICOLECTOMY WITH APPENDECTOMY :- TRANSMURAL NECROSIS, CECUM- EXTENSIVE MUCOSAL NECROSIS, MULTIFOCAL, IN ASCENDING COLON- APPENDIX WITH NO DIAGNOSTIC ALTERATION- COLON MARGIN VIABLE- ILEUM MARGIN WITH FOCAL MUCOSAL NECROSIS- SEVEN LYMPH NODES WITH REACTIVE CHANGES (0/7)- SEE COMMENT Signing Pathologist Direct Phone Line: [phone] signed by Donnie Otoole MD on 11/09/2020 at 1:34 PMNo thrombi or vasculitis is seen. [id number] painAscending colonReceived fresh labeled the patient's name, accession number and "right colonwith appendix" is a 45.0 cm in length by 4.0-9.5 cm in diameter colon with up to 1.5 cm of attached pericolic fat, a 3.5 cm in length by 3.0 cm in diameter terminal ileum, and a 8.0 cm in length by 0.5cm in diameter grossly unremarkable appendix.The serosa is purple-pink, predominantly surfaced by mul tiple adhesions and displays a 7.5 x 9.5 cm dusky green area at the cecum with a suture. The specimen is opened to reveal an 18.0 cm area of green-black, necrotic mucosa at the cecum, ileocecal valve and ascending colon that is 6.0 cm from the proximal margin and 22.0 cm from the distal margin. There is a 5.5 x 1.5 cm area of flattened, focally hemorrhagic mucosa at the distal ascending colon that is 37.0 cm from the proximal margin and 2.5 cm from the distal margin. Sectioning reveals a wall ranging in thickness from 0.1-0.2 cm. No discrete lesions or perforations are grossly appreciated. Sectioning of the mesentery reveals focal areas of hemorrhage. Thrombi are not grossly appreciated. [employer] sections are submitted as follows:Section codeA1- proximal and distal bowel margins en faceA2-sutured area at ufeqsU3-wnwuwO8-rumrpiaxe valveA5-necrotic ascending colon esvjzgU2-E9-sxyrnkvijau ascending colon mucosa, in its entiretyA 9-appendixA 10- mesenteric marginA 11-hemorrhagic mesenteric fatA 12-1 possible lymph node, bisectedA 13-1 possible lymph node, bisectedA 14-3 possible lymph nodesMARIUSZ Ruano HT (ASCP)Performed.[facility], Department of Pathology, [address] [place] [address], [facility], [facility] of [facility], [address] [place] [address], [facility], [facility] of [facility], [address] [place] [address], CJGZ-GLUCOSE [id number] 12:07:00 Test Item Value Reference Range Interpretation Comments POC-GLUCOSE METER 268 mg/dL 70-110 H : TESTED A T [facility] 6720 (BEAKER) (test code [facility], = 1538) [address]: E Commerce Solution Architect/Techni leah ID = [id number] for Yolanda Chairez TACROLIMUS [id number] 09:38:00 Test Item Value Reference Range Interpretation Comments TACROLIMUS BLOOD 8.0 ng/mL 10.0-20.0 L Test perfor med on Watson (BEAKER) (test code Architec t Immunoassay = 657) system with Chemiluminescen t Microparticle I mmunoassay (CMIA) technolo gy. E Commerce Solution Architect ID - AAHAMIDBASIC METABOLIC [id number] 06:25:00 Test Item Value Reference Range Interpretation Comments SODIUM (BEAKER) 132 meq/L 136-145 L (test code = 381) POTASSIUM (BEAKER) 4.0 meq/L 3.5-5.1 (test code = 379) CHLORIDE (BEAKER) 99 meq/L 98-107 (test code = 382) CO2 (BEAKER) (test 23 meq/L 22-29 code = 355) BLOOD UREA NITROGEN 45 mg/dL 7-21 H (BEAKER) (test code = 354) CREATININE (BEAKER) 4.33 mg/dL 0.57-1.25 H (test code = 358) GLUCOSE RANDOM 203 mg/dL 70-105 H (BEAKER) (test code = 652) CALCIUM (BEAKER) 7.5 mg/dL 8.4-10.2 L (test code = 697) EGFR (BEAKER) (test 10 mL/min/1.73 ESTIMA JUAN GFR IS code = 1092) sq m NOT ACCURATE CREATININE CLEARANCE IN PREDICTING GLOMERULAR FILTRATION RATE . ESTIMATED GFR I S NOT APPLICABLE FOR DIALYSIS PATIEN TS. [employer] Commerce Solution Architect ID - PIAYA epatic function [id number] 06:12:00 Test Item Value Reference Range Interpretation Comments Protein, Total (test 5.7 See_Comment L [Autom ated code = 2885-2) message] The system which generated this result transmit juan reference range : 6.0 - 8.3 gm/dL . The reference range was not u sed to interpret th is result as normal/abnormal . Albumin (test code = 2.4 g/dL 3.5-5 L 59673-1) Total Bilirubin (test 0.2 mg/dL 0.2-1.2 code = 1975-2) Bilirubin, Direct 0.2 mg/dL 0.1-0.5 (test code = 1968-7) Alkaline Phosphatase 76 U/L 40-150 (test code = 6768-6) AST (test code = 13 U/L 5-34 1920-8) ALT (test code = 14 U/L 6-55 1742-6) RBADLY (test code = BRADLY) E Commerce Solution Architect ID - DONNA L Lab Interpretation Abnormal (test code = 12381-7) [facility] 06:12:00 Test Item Value Reference Range Interpretation Comments Magnesium (test code = 2.1 mg/dL 1.6-2.6 74805-6) BRADLY (test code = BRADLY) E Commerce Solution Architect ID - DONNA L Lab Interpretation (test Normal code = 89156-4) [facility] 06:12:00 Test Item Value Reference Range Interpretation Comments Phosphorus (test code = 3.0 mg/dL 2.3-4.7 2777-1) BRADLY (test code = BRADLY) E Commerce Solution Architect ID - DONNA L Lab Interpretation (test Normal code = 81831-6) [facility]2021-08-18 06:12:00 Test Item Value Reference Range Interpretation Comments MAGNESIUM (BEAKER) (test code = 2.1 mg/dL 1.6-2.6 627) E Commerce Solution Architect ID - DONNA [id number] 06:12:00 Test Item Value Reference Range Interpretation Comments PHOSPHORUS (BEAKER) (test code = 3.0 mg/dL 2.3-4.7 604) E Commerce Solution Architect ID - DONNA LHEPATIC FUNCTION [id number] 06:12:00 Test Item Value Reference Range Interpretation Comments TOTAL PROTEIN (BEAKER) (test code = 5.7 gm/dL 6.0-8.3 L 770) ALBUMIN (BEAKER) (test code = 1145) 2.4 g/dL 3.5-5.0 L BILIRUBIN TOTAL (BEAKER) (test code 0.2 mg/dL 0.2-1.2 = 377) BILIRUBIN DIRECT (BEAKER) (test 0.2 mg/dL 0.1-0.5 code = 706) ALKALINE PHOSPHATASE (BEAKER) (test 76 U/L 40-150 code = 346) AST (SGOT) (BEAKER) (test code = 13 U/L 5-34 353) ALT (SGPT) (BEAKER) (test code = 14 U/L 6-55 347) [employer] Solution Architect ID - DONNA LVancomycin level, [id number] 06:06:00 Test Item Value Reference Range Interpretation Comments Vancomycin Rm (test 17.1 ug/mL code = 40988-2) BRADLY (test code = Reference Range: No BRADLY) NormalsOperator ID - DONNA L [facility]areVANCOMYCIN LEVEL, [id number] 06:06:00 Test Item Value Reference Range Interpretation Comments VANCOMYCIN RANDOM (BEAKER) (test 17.1 ug/mL code = 523) Reference Range: No NormalsOperator ID - DONNA LPOCT-GLUCOSE [id number] 05:57:00 Test Item Value Reference Range Interpretation Comments POC-GLUCOSE METER 172 mg/dL 70-110 H : TESTED A T [facility] 6720 (BEAKER) (test code = [place], 1538) [address]: E Commerce Solution Architect/Techni leah ID = [id number] for JERONIMO EMERSON Calcium, [id number] 05:51:00 Test Item Value Reference Range Interpretation Comments Calcium, Ion (test code = 1994-3) 1.05 mmol/L 1.12-1.27 L pH, Blood (test code = 66431-3) 7.33 Lab Interpretation (test code = Abnormal 58235-7) [facility]CALCI[facility], [id number] 05:51:00 Test Item Value Reference Range Interpretation Comments CALCIUM IONIZED (BEAKER) (test 1.05 mmol/L 1.12-1.27 L code = 698) PH, BLOOD (BEAKER) (test code = 7.33 1810) [id number] 05:45:00 Test Item Value Reference Range Interpretation Comments PTT (test code = 39.0 See_Comment H [Automated message] 26830-2) The system [employer] generated this result transmitted ref erence range: 22.5 - 3 6.0 seconds. The reference range was not used to int erpret this result as normal/abnormal . Lab Interpretation (test Abnormal code = 77509-7) [facility]APTT2021-08-18 05:45:00 Test Item Value Reference Range Interpretation Comments PARTIAL THROMBOPLASTIN TIME 39.0 seconds 22.5-36.0 H (BEAKER) (test code = 760) PROTHROMBIN TIME/[id number] 05:44:00 Test Item Value Reference Range Interpretation Comments PROTIME (BEAKER) 13.9 seconds 11.9-14.2 (test code = 759) INR (BEAKER) (test 1.08 See_Comment [Automat ed message] code = 370) The system [employer] generated this result transmitted ref erence range: <=5.90. The reference range was not used to int erpret this result as normal/abnormal . RECOMMENDED COUMADIN/WARFARIN INR THERAPY RANGESSTANDARD DOSE: 2.0 - 3.0 Includes: PROPHYLAXIS forvenous thrombosis, systemic embolization; TREATMENT for venous thrombosis and/or pulmonary embolus.HIGH RISK: Target INR is 2.5-3.5 for patients with mechanical heart valves.CBC W/PLT COUNT & AUTO DIFFERENTIAL 2020-11-09 05:38:00 Test Item Value Reference Range Interpretation Comments WHITE BLOOD CELL COUNT (BEAKER) 4.6 K/ L 3.5-10.5 (test code = 775) RED BLOOD CELL COUNT (BEAKER) 3.35 M/ L 3.93-5.22 L (test code = 761) HEMOGLOBIN (BEAKER) (test code = 8.8 GM/DL 11.2-15.7 L 410) HEMATOCRIT (BEAKER) (test code = 29.7 % 34.1-44.9 L 411) MEAN CORPUSCULAR VOLUME (BEAKER) 88.7 fL 79.4-94.8 (test code = 753) MEAN CORPUSCULAR HEMOGLOBIN 26.3 pg 25.6-32.2 (BEAKER) (test code = 751) MEAN CORPUSCULAR HEMOGLOBIN CONC 29.6 GM/DL 32.2-35.5 L (BEAKER) (test code = 752) RED CELL DISTRIBUTION WIDTH 15.8 % 11.7-14.4 H (BEAKER) (test code = 412) PLATELET COUNT (BEAKER) (test 193 K/CU MM 150-450 code = 756) MEAN PLATELET VOLUME (BEAKER) 9.1 fL 9.4-12.3 L (test code = 754) NUCLEATED RED BLOOD CELLS 0 /100 WBC 0-0 (BEAKER) (test code = 413) NEUTROPHILS RELATIVE PERCENT 67 % (BEAKER) (test code = 429) LYMPHOCYTES RELATIVE PERCENT 18 % (BEAKER) (test code = 430) MONOCYTES RELATIVE PERCENT 9 % (BEAKER) (test code = 431) EOSINOPHILS RELATIVE PERCENT 4 % (BEAKER) (test code = 432) BASOPHILS RELATIVE PERCENT 0 % (BEAKER) (test code = 437) NEUTROPHILS ABSOLUTE COUNT 3.07 K/ L 1.56-6.13 (BEAKER) (test code = 670) LYMPHOCYTES ABSOLUTE COUNT 0.81 K/ L 1.18-3.74 L (BEAKER) (test code = 414) MONOCYTES ABSOLUTE COUNT (BEAKER) 0.43 K/ L 0.24-0.36 H (test code = 415) EOSINOPHILS ABSOLUTE COUNT 0.18 K/ L 0.04-0.36 (BEAKER) (test code = 416) BASOPHILS ABSOLUTE COUNT (BEAKER) 0.02 K/ L 0.01-0.08 (test code = 417) IMMATURE GRANULOCYTES-RELATIVE 1 % 0-1 PERCENT (BEAKER) (test code = 2801) POCT-GLUCOSE [id number] 00:43:00 Test Item Value Reference Range Interpretation Comments POC-GLUCOSE METER 224 mg/dL 70-110 H : TESTED A T [facility] 6720 (BEAKER) (test code = [facility], 1538) [address]: E Commerce Solution Architect/Techni leah ID = [id number] for JERONIMO EMERSON POCT-GLUCOSE [id number] 18:08:00 Test Item Value Reference Range Interpretation Comments POC-GLUCOSE METER 200 mg/dL 70-110 H : TESTED A T [facility] 6720 (BEAKER) (test code = [facility], 1538) 379[address]: E Commerce Solution Architect/Techni leah ID = [id number] for SILVINO HARRISON BASIC METABOLIC [id number] 10:59:00 Test Item Value Reference Range Interpretation Comments SODIUM (BEAKER) 140 meq/L 136-145 (test code = 381) POTASSIUM (BEAKER) 4.0 meq/L 3.5-5.1 (test code = 379) CHLORIDE (BEAKER) 103 meq/L 98-107 (test code = 382) CO2 (BEAKER) (test 22 meq/L 22-29 code = 355) BLOOD UREA NITROGEN 32 mg/dL 7-21 H (BEAKER) (test code = 354) CREATININE (BEAKER) 3.31 mg/dL 0.57-1.25 H (test code = 358) GLUCOSE RANDOM 129 mg/dL 70-105 H (BEAKER) (test code = 652) CALCIUM (BEAKER) 8.4 mg/dL 8.4-10.2 (test code = 697) EGFR (BEAKER) (test 14 mL/min/1.73 ESTIMA JUAN GFR IS code = 1092) sq m NOT ACCURATE CREATININE CLEARANCE IN PREDICTING GLOMERULAR FILTRATION RATE . ESTIMATED GFR I S NOT APPLICABLE FOR DIALYSIS PATIEN TS. E Commerce Solution Architect ID - DONNA [id number] 10:50:00 Test Item Value Reference Range Interpretation Comments MAGNESIUM (BEAKER) (test code = 2.1 mg/dL 1.6-2.6 627) E Commerce Solution Architect ID - DONNA [id number] 10:50:00 Test Item Value Reference Range Interpretation Comments PHOSPHORUS (BEAKER) (test code = 2.7 mg/dL 2.3-4.7 604) E Commerce Solution Architect ID - DONNA LHEPATIC FUNCTION [id number] 10:50:00 Test Item Value Reference Range Interpretation Comments TOTAL PROTEIN (BEAKER) (test code = 6.6 gm/dL 6.0-8.3 770) ALBUMIN (BEAKER) (test code = 1145) 2.9 g/dL 3.5-5.0 L BILIRUBIN TOTAL (BEAKER) (test code 0.4 mg/dL 0.2-1.2 = 377) BILIRUBIN DIRECT (BEAKER) (test 0.3 mg/dL 0.1-0.5 code = 706) ALKALINE PHOSPHATASE (BEAKER) (test 82 U/L 40-150 code = 346) AST (SGOT) (BEAKER) (test code = 17 U/L 5-34 353) ALT (SGPT) (BEAKER) (test code = 22 U/L 6-55 347) E Commerce Solution Architect ID Eloy THOMPSON LTACROLIMUS [id number] 10:42:00 Test Item Value Reference Range Interpretation Comments TACROLIMUS BLOOD 8.9 ng/mL 10.0-20.0 L Test perfor med on Watson (BEAKER) (test code Architec t Immunoassay = 657) system with Chemiluminescen t Microparticle I mmunoassay (CMIA) technolo gy. E Commerce Solution Architect ID - VIRGIE FCALCIUM, [id number] 07:55:00 Test Item Value Reference Range Interpretation Comments CALCIUM IONIZED (BEAKER) (test 1.10 mmol/L 1.12-1.27 L code = 698) PH, BLOOD (BEAKER) (test code = 7.33 1810) [id number] 06:57:00 Test Item Value Reference Range Interpretation Comments PARTIAL THROMBOPLASTIN TIME 51.2 seconds 22.5-36.0 H (BEAKER) (test code = 760) PROTHROMBIN [id number] 06:56:00 Test Item Value Reference Range Interpretation Comments PROTIME (BEAKER) 14.8 seconds 11.9-14.2 H (test code = 759) INR (BEAKER) (test 1.18 See_Comment [Automat ed message] code = 370) The system [employer] generated this result transmitted ref erence range: <=5.90. The reference range was not used to int erpret this result as normal/abnormal . RECOMMENDED COUMADIN/WARFARIN INR THERAPY RANGESSTANDARD DOSE: 2.0 - 3.0 Includes: PROPHYLAXIS forvenous thrombosis, systemic embolization; TREATMENT for venous thrombosis and/or pulmonary embolus.HIGH RISK: Target INR is 2.5-3.5 for patients with mechanical heart valves.CBC W/PLT COUNT & AUTO DIFFERENTIAL 2020-11-08 06:45:00 Test Item Value Reference Range Interpretation Comments WHITE BLOOD CELL COUNT (BEAKER) 5.1 K/ L 3.5-10.5 (test code = 775) RED BLOOD CELL COUNT (BEAKER) 3.81 M/ L 3.93-5.22 L (test code = 761) HEMOGLOBIN (BEAKER) (test code = 9.9 GM/DL 11.2-15.7 L 410) HEMATOCRIT (BEAKER) (test code = 35.0 % 34.1-44.9 411) MEAN CORPUSCULAR VOLUME (BEAKER) 91.9 fL 79.4-94.8 (test code = 753) MEAN CORPUSCULAR HEMOGLOBIN 26.0 pg 25.6-32.2 (BEAKER) (test code = 751) MEAN CORPUSCULAR HEMOGLOBIN CONC 28.3 GM/DL 32.2-35.5 L (BEAKER) (test code = 752) RED CELL DISTRIBUTION WIDTH 16.1 % 11.7-14.4 H (BEAKER) (test code = 412) PLATELET COUNT (BEAKER) (test 197 K/CU MM 150-450 code = 756) MEAN PLATELET VOLUME (BEAKER) 8.7 fL 9.4-12.3 L (test code = 754) NUCLEATED RED BLOOD CELLS 0 /100 WBC 0-0 (BEAKER) (test code = 413) NEUTROPHILS RELATIVE PERCENT 74 % (BEAKER) (test code = 429) LYMPHOCYTES RELATIVE PERCENT 14 % (BEAKER) (test code = 430) MONOCYTES RELATIVE PERCENT 8 % (BEAKER) (test code = 431) EOSINOPHILS RELATIVE PERCENT 2 % (BEAKER) (test code = 432) BASOPHILS RELATIVE PERCENT 1 % (BEAKER) (test code = 437) NEUTROPHILS ABSOLUTE COUNT 3.78 K/ L 1.56-6.13 (BEAKER) (test code = 670) LYMPHOCYTES ABSOLUTE COUNT 0.73 K/ L 1.18-3.74 L (BEAKER) (test code = 414) MONOCYTES ABSOLUTE COUNT (BEAKER) 0.43 K/ L 0.24-0.36 H (test code = 415) EOSINOPHILS ABSOLUTE COUNT 0.11 K/ L 0.04-0.36 (BEAKER) (test code = 416) BASOPHILS ABSOLUTE COUNT (BEAKER) 0.03 K/ L 0.01-0.08 (test code = 417) IMMATURE GRANULOCYTES-RELATIVE 1 % 0-1 PERCENT (BEAKER) (test code = 2801) POCT-GLUCOSE [id number] 23:49:00 Test Item Value Reference Range Interpretation Comments POC-GLUCOSE METER 132 mg/dL 70-110 H : TESTED A T [facility] 6720 (BEAKER) (test [facility], 1538) [address]: E Commerce Solution Architect/Techni leah ID = [id number] for MEAGAN LAMAJERONIMO POCT-GLUCOSE [id number] 11:52:00 Test Item Value Reference Range Interpretation Comments POC-GLUCOSE METER 153 mg/dL 70-110 H : TESTED A T [facility] 6720 (BEAKER) (test code [facility], = 1538) [address]: E Commerce Solution Architect/Techni leah ID = [id number] for Cherelle Yolanda núñez Anaerobic [id number] 10:22:00 Test Item Value Reference Range Interpretation Comments Result (test code = No anaerobes isolated 6463-4) [facility] [id number] 10:22:00 Test Item Value Reference Range Interpretation Comments CULTURE (BEAKER) (test No anaerobes isolated code = 1095) TACROLIMUS [id number] 09:33:00 Test Item Value Reference Range Interpretation Comments TACROLIMUS BLOOD 15.3 ng/mL 10.0-20.0 Test perfor med on Watson (BEAKER) (test code Architec t Immunoassay = 657) system with Chemiluminescen t Microparticle Immunoassay (CM IA) technology. E Commerce Solution Architect ID - [id number] 06:12:00 Test Item Value Reference Range Interpretation Comments MAGNESIUM (BEAKER) (test code = 2.6 mg/dL 1.6-2.6 627) E Commerce Solution Architect ID - [id number] 06:12:00 Test Item Value Reference Range Interpretation Comments PHOSPHORUS (BEAKER) (test code = 4.2 mg/dL 2.3-4.7 604) E Commerce Solution Architect ID - DBHEPATIC FUNCTION [id number] 06:12:00 Test Item Value Reference Range Interpretation Comments TOTAL PROTEIN (BEAKER) (test code = 6.4 gm/dL 6.0-8.3 770) ALBUMIN (BEAKER) (test code = 1145) 2.7 g/dL 3.5-5.0 L BILIRUBIN TOTAL (BEAKER) (test code 0.6 mg/dL 0.2-1.2 = 377) BILIRUBIN DIRECT (BEAKER) (test 0.3 mg/dL 0.1-0.5 code = 706) ALKALINE PHOSPHATASE (BEAKER) (test 75 U/L 40-150 code = 346) AST (SGOT) (BEAKER) (test code = 25 U/L 5-34 353) ALT (SGPT) (BEAKER) (test code = 30 U/L 6-55 347) E Commerce Solution Architect ID - DBBASIC METABOLIC [id number] 06:12:00 Test Item Value Reference Range Interpretation Comments SODIUM (BEAKER) 141 meq/L 136-145 (test code = 381) POTASSIUM (BEAKER) 3.8 meq/L 3.5-5.1 (test code = 379) CHLORIDE (BEAKER) 100 meq/L 98-107 (test code = 382) CO2 (BEAKER) (test 26 meq/L 22-29 code = 355) BLOOD UREA NITROGEN 51 mg/dL 7-21 H (BEAKER) (test code = 354) CREATININE (BEAKER) 4.27 mg/dL 0.57-1.25 H (test code = 358) GLUCOSE RANDOM 147 mg/dL 70-105 H (BEAKER) (test code = 652) CALCIUM (BEAKER) 8.1 mg/dL 8.4-10.2 L (test code = 697) EGFR (BEAKER) (test 10 mL/min/1.73 ESTIMA JUAN GFR IS code = 1092) sq m NOT ACCURATE CREATININE CLEARANCE IN PREDICTING GLOMERULAR FILTRATION RATE . ESTIMATED GFR I S NOT APPLICABLE FOR DIALYSIS PATIEN TS. E Commerce Solution Architect ID - [id number] 05:47:00 Test Item Value Reference Range Interpretation Comments PARTIAL THROMBOPLASTIN TIME 44.0 seconds 22.5-36.0 H (BEAKER) (test code = 760) PROTHROMBIN TIME/[id number] 05:46:00 Test Item Value Reference Range Interpretation Comments PROTIME (BEAKER) 14.9 seconds 11.9-14.2 H (test code = 759) INR (BEAKER) (test 1.19 See_Comment [Automat ed message] code = 370) The system [employer] generated this result transmitted ref erence range: <=5.90. The reference range was not used to int erpret this result as normal/abnormal . RECOMMENDED COUMADIN/WARFARIN INR THERAPY RANGESSTANDARD DOSE: 2.0 - 3.0 Includes: PROPHYLAXIS forvenous thrombosis, systemic embolization; TREATMENT for venous thrombosis and/or pulmonary embolus.HIGH RISK: Target INR is 2.5-3.5 for patients with mechanical heart valves.CALCIUM, [id number] 05:35:00 Test Item Value Reference Range Interpretation Comments CALCIUM IONIZED (BEAKER) (test 1.07 mmol/L 1.12-1.27 L code = 698) PH, BLOOD (BEAKER) (test code = 7.40 1810) CBC W/PLT COUNT & AUTO [id number] 05:28:00 Test Item Value Reference Range Interpretation Comments WHITE BLOOD CELL COUNT (BEAKER) 6.0 K/ L 3.5-10.5 (test code = 775) RED BLOOD CELL COUNT (BEAKER) 3.37 M/ L 3.93-5.22 L (test code = 761) HEMOGLOBIN (BEAKER) (test code = 9.0 GM/DL 11.2-15.7 L 410) HEMATOCRIT (BEAKER) (test code = 30.5 % 34.1-44.9 L 411) MEAN CORPUSCULAR VOLUME (BEAKER) 90.5 fL 79.4-94.8 (test code = 753) MEAN CORPUSCULAR HEMOGLOBIN 26.7 pg 25.6-32.2 (BEAKER) (test code = 751) MEAN CORPUSCULAR HEMOGLOBIN CONC 29.5 GM/DL 32.2-35.5 L (BEAKER) (test code = 752) RED CELL DISTRIBUTION WIDTH 16.5 % 11.7-14.4 H (BEAKER) (test code = 412) PLATELET COUNT (BEAKER) (test 195 K/CU MM 150-450 code = 756) MEAN PLATELET VOLUME (BEAKER) 8.7 fL 9.4-12.3 L (test code = 754) NUCLEATED RED BLOOD CELLS 0 /100 WBC 0-0 (BEAKER) (test code = 413) NEUTROPHILS RELATIVE PERCENT 80 % (BEAKER) (test code = 429) LYMPHOCYTES RELATIVE PERCENT 11 % (BEAKER) (test code = 430) MONOCYTES RELATIVE PERCENT 7 % (BEAKER) (test code = 431) EOSINOPHILS RELATIVE PERCENT 1 % (BEAKER) (test code = 432) BASOPHILS RELATIVE PERCENT 0 % (BEAKER) (test code = 437) NEUTROPHILS ABSOLUTE COUNT 4.83 K/ L 1.56-6.13 (BEAKER) (test code = 670) LYMPHOCYTES ABSOLUTE COUNT 0.67 K/ L 1.18-3.74 L (BEAKER) (test code = 414) MONOCYTES ABSOLUTE COUNT (BEAKER) 0.40 K/ L 0.24-0.36 H (test code = 415) EOSINOPHILS ABSOLUTE COUNT 0.06 K/ L 0.04-0.36 (BEAKER) (test code = 416) BASOPHILS ABSOLUTE COUNT (BEAKER) 0.02 K/ L 0.01-0.08 (test code = 417) IMMATURE GRANULOCYTES-RELATIVE 1 % 0-1 PERCENT (BEAKER) (test code = 2801) VANCOMYCIN LEVEL, [id number] 15:55:00 Test Item Value Reference Range Interpretation Comments VANCOMYCIN RANDOM (BEAKER) (test 18.6 ug/mL code = 523) Reference Range: No NormalsOperator ID - [id number] Echo W/Doppler(CW/PW/Color) 2020-11-06 15:26:24Ejection FractionSLEH ECHO HEARTLAB MKCKESSON CPACSInterface, External Ris In - 11/06/2020 3:26 PM CDTTransthoracic Echocardiography Report (TTE) Demographics Patient Name PAM RODGERS Date ofStudy 11/06/2020 MARCIN Gender Female Visit Number [id number] Race Room Number 7A05 Number Date of 1955 Referring KASEY MACKAY Physician Age 65 year(s) Meat Butcher Yann Mendez [facility] House Supervisor Vinnie Harding Interpreting Courtney Mojica Physician Procedure Type of Study TTE procedure:2DECHO W DOPPLER(CW/PW/COLOR) (STAT) Indications:Concern for ischemia.Clinical HistoryCancerDiabetesHepatitis BHepatitis CHypertensionMetabolic SyndromeObesityStroke/TIAWeight loss02/16/14 R & L Cath / PCI09/30/14 Livertransplant11/04/20 Exploratory Laparotomy & small bowel resectionHGB 9HCT 29.4 %Height: 65 inchesWeight: 80.29 kg (177 lbs) BSA: 1.88 m^2 BMI: 29.45 kg/m^2HR: 115 bpm BP: 164/75 mmHg Summary 1. Normal LV size. All of the LV segments contract normally. LVEF is normal (>60%). 2. Normal right ventricle structure and function. 3. Unable to estimate peak systolic PA pressure 4. Severe mitral annular calcification. MV gradients are increased in part due to increased heart rate and mitral annularcalcification . 5. Yhoq-ng-nuprvehj mitral regurgitation. Previous Study Compared to the previous study there was no significant change. Signature Findings Left Ventricle The left ventricle is chamber size (by PSLAX dimension) is normal (female - LVIDd 3.8-5.2cm) . Mild concentric LV hypertrophy. All of the LV segments contract normally . Estimated LVEF by qualitative assessment is normal (>60%) . Degree of diastolic dysfunction (LAP assessment) is inconclusive due to mitral annular calcification . Left Atrium LA size is severely enlarged (>48 ml/m2) . Right Ventricle Normal right ventricle structure and function. Right Atrium RA cavity size is normal . Aortic Valve Mild AoVcusp thickening. Mitral Valve Mild MV leaflet thickening. Severe mitral annular calcification. Unnv-gf-xomdkysu mitral regurgitation. MV gradients are increased in part due to increased heart rate and mitral annular calcification . Tricuspid Valve A trace of tricuspid regurgitation. Unable to estimate peak systolic PA pressure; inadequate TR velocity signal. Pulmonic Valve Normal PV structure and function by limited views and Doppler. Aorta Aortic root size (SInus of Valsalva diameter) is normal . Pericardium No evidence of pericardial effusion. IVC/SVC/PA/PV/Pleural The estimated RA pressure by IVC dynamics 16-20mmHg . Chambers/Structures Left Atrium LA Volume: 111.59 ml LA Area: 30.8 cm^2 LA Vol. Index: 59 ml/m^2 Left Ventricle LVIDd: 4.41 cm LVEDV:88.14 ml LV Septum Diastolic: 1.25 cm LV PW Diastolic: 1.03 cm LVOT Diameter: 1.98 cm Aorta Ao Root S of Janice.: 3.15 cm Doppler/Quantitative Measurements Mitral Valve Mean Velocity: 1.48 m/s Mean Gradient: 10.07 mmHg Area (continuity): 1.53 cm^2 MV VTI: 32.19 cm MV Rosales. Peak: 2.11 m/s Aortic Valve Peak Velocity: 0.82 m/s Mean Velocity: 0.59 m/s Peak Gradient: 2.69 mmHg Mean Gradient: 1.54 mmHg AV Area (continuity): 3.33 cm^2 AV VTI: 14.8 cm AV DVI: 1.08 LVOT Peak Velocity: 0.92 m/s Peak Gradient: 3.35 mmHg Mean Velocity: 0.57 m/s Mean Gradient: 1.55 mmHg LVOT Diameter: 1.98 cm LVOT VTI: 16 cm LVOT Area: 3.08 cm^2 LVOT SV:49.24 ml LVOT CO: 5.66 l/min LVOT CI: 3.01 l/min/m^2 Tricuspid Valve TR Velocity: 2.05 m/s TR Gradient: 16.8 mmHgSt. [facility] CenterCT-GLUCOSE [id number] 15:14:00 Test Item Value Reference Range Interpretation Comments POC-GLUCOSE METER 138 mg/dL 70-110 H : TESTED A T [facility] 6720 (BEAKER) (test code = BRENDA Santiago [facility], 1538) [id number]: E [employer] Solution Architect/Techni leah ID = [id number] for Augustin thao (contract)Darrel Surgically obtained culture + gram [id number] 13:22:00 Test Item Value Reference Range Interpretation Comments Result (test code = 6463-4) No growth Gram Stain Result (test No organisms seen code = 1123) [facility] + GRAM [id number] 13:22:00 Test Item Value Reference Range Interpretation Comments CULTURE (BEAKER) (test code No growth = 1095) GRAM STAIN RESULT (BEAKER) <1+ WBCs (test code = 1123) GRAM STAIN RESULT (BEAKER) No organisms seen (test code = 46070) Venous doppler arm, [id number] 10:06:56Ejection FractionSLEH ECHO HEARTLAB MKCKESSON CPACSRight Impression1. There is no deep venous obstruction in the jugular, subclavian, axillary,brachial, radial or ulnar veins.2. There is total echolucent superficial venous obstruction in the cephalicvein just above antecubital fossa.3. There is no superficial venous obstruction in the basilic vein. Conclusions Summary Venous duplex imaging and compression of the right upper extremity were performed. The veins were adequately visualized. The right deep venous system was patent and compressible with no evidence of thrombus. The right superficial venous system was positive with acute thrombus. Signature Electronically signed by Reji Guerra MD(Interpreting physician) on 110:06 AM Velocities are measured incm/s ; Diameters are measured in cm Interface, External Ris In - 11/06/2020 10:07 AM CDTPV LAB - Upper Extremities Veins Demographics Patient Name PAM RODGERS Date of Study 11/06/2020 MARCIN Age 65 Visit Number [id number] Gender Female Accession Number [id number] Date ofBirth 1955 Referring Cecilia Huerta Room Number 7A05 Physician Meat Butcher Ashley Higgins [facility] Interpreting Reji Guerra MD Physician ProcedureType of Study: Veins: Upper Extremities Veins, VENOUS DOPPLER ARM, RIGHT. Indications for Study:Right arm swelling- please evaluate for DVT.Patient Status:CARMEN.Study Location:Portable.Technical Quality:Adequate visualization. - Results were reported to:JACQUELYN Lund @ 01:45.Risk FactorsHistory of Disease+ + + ---+!Diagnosis !Date !Comments !+ --------+ + +!History/Risk Factors: !09/04/2018!Bilateral LE swelling !! ! !Fluid overload !+ + + +!Hi story/Risk Factors: !11/06/2020!RUE swelling !! ! !Multiple invasive lines !+ + + -----+ImpressionsRight Impression1. There is no deep venous obstruction in the jugular, subclavian, axillary,brachial, radial or ulnar veins.2. There is total echolucent superficial venous obstruction in the cephalicvein just above antecubital fossa.3. There is no superficial venous obstruction in thebasilic vein. Conclusions Summary Venous duplex imaging and compression of the right upper extremity were performed. The veins were adequately visualized. The right deep venous system was patent and compressible with no evidence of thrombus. The right superficial venous system was positive with acute thrombus. Signature Velocities are measured in cm/s ; Diameters are measured in [facility] TACROLIMUS [id number] 09:13:00 Test Item Value Reference Range Interpretation Comments TACROLIMUS BLOOD 12.6 ng/mL 10.0-20.0 Test perfor med on Watson (SmartRx) (test code Architec t Immunoassay = 657) system with Chemiluminescen t Microparticle Immunoassay (CM IA) technology. E Commerce Solution Architect ID - SIVAN MPOCT-GLUCOSE [id number] 06:00:00 Test Item Value Reference Range Interpretation Comments POC-GLUCOSE METER 123 mg/dL 70-110 H : TESTED A T [facility] 6720 (SmartRx) (test code = [place], 1538) [id number]: E Commerce Solution Architect/Techni leah ID = [id number] for Ad shaquille, Josselynanjelica BASIC METABOLIC [id number] 05:09:00 Test Item Value Reference Range Interpretation Comments SODIUM (ContactualAKER) 143 meq/L 136-145 (test code = 381) POTASSIUM (ContactualAKER) 3.8 meq/L 3.5-5.1 Specimen slightly (test code = 379) hemolyzed CHLORIDE (BEAKER) 103 meq/L 98-107 (test code = 382) CO2 (BEAKER) (test 28 meq/L 22-29 code = 355) BLOOD UREA NITROGEN 32 mg/dL 7-21 H (BEAKER) (test code = 354) CREATININE (BEAKER) 3.12 mg/dL 0.57-1.25 H Specimen slightly (test code = 358) hemolyzed GLUCOSE RANDOM 140 mg/dL 70-105 H (BEAKER) (test code = 652) CALCIUM (BEAKER) 8.3 mg/dL 8.4-10.2 L (test code = 697) EGFR (BEAKER) (test 15 mL/min/1.73 ESTIMA JUAN GFR IS code = 1092) sq m NOT ACCURATE CREATININE CLEARANCE IN PREDICTING GLOMERULAR FILTRATION RATE . ESTIMATED GFR I S NOT APPLICABLE FOR DIALYSIS PATIEN TS. E Commerce Solution Architect ID - JAYLEN [id number] 04:41:00 Test Item Value Reference Range Interpretation Comments MAGNESIUM (BEAKER) 2.5 mg/dL 1.6-2.6 Specimen slightly (test code = 627) hemolyzed E Commerce Solution Architect ID - JAYLEN [id number] 04:41:00 Test Item Value Reference Range Interpretation Comments PHOSPHORUS (BEAKER) 3.7 mg/dL 2.3-4.7 Specimen slightly (test code = 604) hemolyzed E Commerce Solution Architect ID - JAYLEN MHEPATIC FUNCTION [id number] 04:41:00 Test Item Value Reference Range Interpretation Comments TOTAL PROTEIN (BEAKER) 6.5 gm/dL 6.0-8.3 Speci men slightly (test code = 770) hemolyzed ALBUMIN (BEAKER) (test 2.7 g/dL 3.5-5.0 L Speci men slightly code = 1145) hemolyzed BILIRUBIN TOTAL 0.7 mg/dL 0.2-1.2 Specimen sli ghtly (BEAKER) (test code = hemoly zed 377) BILIRUBIN DIRECT 0.2 mg/dL 0.1-0.5 Specimen sl ightly (BEAKER) (test code = hemoly zed 706) ALKALINE PHOSPHATASE 79 U/L 40-150 (BEAKER) (test code = 346) AST (SGOT) (BEAKER) 39 U/L 5-34 H Specimen slightly (test code = 353) hemolyzed ALT (SGPT) (BEAKER) 27 U/L 6-55 Specimen slightly (test code = 347) hemolyzed E Commerce Solution Architect MILE [id number] 04:06:00 Test Item Value Reference Range Interpretation Comments PARTIAL THROMBOPLASTIN TIME 50.8 seconds 22.5-36.0 H (BEAKER) (test code = 760) CBC W/PLT COUNT & AUTO [id number] 04:04:00 Test Item Value Reference Range Interpretation Comments WHITE BLOOD CELL COUNT (BEAKER) 6.3 K/ L 3.5-10.5 (test code = 775) RED BLOOD CELL COUNT (BEAKER) 3.33 M/ L 3.93-5.22 L (test code = 761) HEMOGLOBIN (BEAKER) (test code = 9.0 GM/DL 11.2-15.7 L 410) HEMATOCRIT (BEAKER) (test code = 29.4 % 34.1-44.9 L 411) MEAN CORPUSCULAR VOLUME (BEAKER) 88.3 fL 79.4-94.8 (test code = 753) MEAN CORPUSCULAR HEMOGLOBIN 27.0 pg 25.6-32.2 (BEAKER) (test code = 751) MEAN CORPUSCULAR HEMOGLOBIN CONC 30.6 GM/DL 32.2-35.5 L (BEAKER) (test code = 752) RED CELL DISTRIBUTION WIDTH 16.8 % 11.7-14.4 H (BEAKER) (test code = 412) PLATELET COUNT (BEAKER) (test 191 K/CU MM 150-450 code = 756) MEAN PLATELET VOLUME (BEAKER) 9.1 fL 9.4-12.3 L (test code = 754) NUCLEATED RED BLOOD CELLS 0 /100 WBC 0-0 (BEAKER) (test code = 413) NEUTROPHILS RELATIVE PERCENT 85 % (BEAKER) (test code = 429) LYMPHOCYTES RELATIVE PERCENT 8 % (BEAKER) (test code = 430) MONOCYTES RELATIVE PERCENT 6 % (BEAKER) (test code = 431) EOSINOPHILS RELATIVE PERCENT 0 % (BEAKER) (test code = 432) BASOPHILS RELATIVE PERCENT 0 % (BEAKER) (test code = 437) NEUTROPHILS ABSOLUTE COUNT 5.33 K/ L 1.56-6.13 (BEAKER) (test code = 670) LYMPHOCYTES ABSOLUTE COUNT 0.51 K/ L 1.18-3.74 L (BEAKER) (test code = 414) MONOCYTES ABSOLUTE COUNT (BEAKER) 0.40 K/ L 0.24-0.36 H (test code = 415) EOSINOPHILS ABSOLUTE COUNT 0.01 K/ L 0.04-0.36 L (BEAKER) (test code = 416) BASOPHILS ABSOLUTE COUNT (BEAKER) 0.01 K/ L 0.01-0.08 (test code = 417) IMMATURE GRANULOCYTES-RELATIVE 1 % 0-1 PERCENT (BEAKER) (test code = 2801) PROTHROMBIN [id number] 04:04:00 Test Item Value Reference Range Interpretation Comments PROTIME (BEAKER) 17.1 seconds 11.9-14.2 H (test code = 759) INR (BEAKER) (test 1.41 See_Comment [Automat ed message] code = 370) The system Convozine generated this result transmitted ref erence range: <=5.90. The reference range was not used to int erpret this result as normal/abnormal . RECOMMENDED COUMADIN/WARFARIN INR THERAPY RANGESSTANDARD DOSE: 2.0 - 3.0 Includes: PROPHYLAXIS forvenous thrombosis, systemic embolization; TREATMENT for venous thrombosis and/or pulmonary embolus.HIGH RISK: Target INR is 2.5-3.5 for patients with mechanical heart valves.CALCIUM, [id number] 03:44:00 Test Item Value Reference Range Interpretation Comments CALCIUM IONIZED (BEAKER) (test 1.08 mmol/L 1.12-1.27 L code = 698) PH, BLOOD (BEAKER) (test code = 7.46 1810) U/S, HEPATIC PORTAL VESSEL WITH [id number] 00:51:00Reason for exam:- >eval patency of portal [facility] 1955 Sex: FFINAL REPORT INDICATION: eval patency of portal vein COMPARISON: None TECHNIQUE: Real-time miranda-scale transabdominal and color and spectral Doppler ultrasound. FINDINGS:Liver: Size: 16.3cm. Echogenicity: Normal. Masses/lesions: None. Surface Nodularity: None. Intrahepatic bile ducts: Normal. Common bile duct: 0.7cm. MPV: 1.3cm. Gallbladder: Surgically absent. Pancreas: Head and uncinate process: Not well-seen secondary to poor acoustic windowing.. Body and tail: Not well-seen. Spleen: Size: 14.9cm. Echogenicity: Unremarkable. Right kidney: Size: 8.9 x 4.7 x 4.8 cm. Parenchyma: Increased echogenicity.. No cysts. No stones. Hydronephrosis: None. Ascites: None. Regional Vasculature: The visible abdominal aorta, IVC and hepatic veins are patent. The aorta measures 2.2 cm proximally. Color and Spectral imaging:MPV: Diameter: 1.3 cm Flow: Hepatopedal. Velocity: 32.5 cm/sec Filling defects:NoneLeft and right portal veins: Patent. Flow: Antegrade Filling defects: None. Hepatic arteries: Patent RI proper hepatic: 0.9 RI right hepatic: 0.79 RI left hepatic: 0.77 IVC, Hepatic venous confluence, right HV, middle HV and left HV are patent. Additional findings: Bilateral pleural effusions.. IMPRESSION: Unremarkable sonographic appearance of the hepatic transplant.Elevated resistive indices in the hepatic arteries above nonspecific however recommend continued attention on follow-up imaging. Otherwise unremarkable hepatic transplant Doppler examination. Bilateralpleural effusions. Splenomegaly. Increased right renal parenchymal echogenicity is nonspecific however can be seen in the setting of medical renal disease. Signed: Aminata Fuenteseport Verified Date/Time: 11/06/2020 00:51:07 US Hepatic Portal Vessel with Doppler 2020-11-06 00:51:00Interface, External Ris In - 11/06/2020 12:54 AM CDTFINAL REPORT INDICATION: eval patency of portal vein COMPARISON: None TECHNIQUE: Real-time miranda-scale transabdominal and colorand spectral Doppler ultrasound. FINDINGS:Liver: Size: 16.3cm. Echogenicity: Normal. Masses/lesions: None. Surface Nodularity: None. Intrahepatic bile ducts: Normal. Common bile duct: 0.7cm. MPV: 1.3cm. Gallbladder: Surgically absent. Pancreas: Head and uncinate process: Not well-seen secondary to poor acoustic windowing.. Body and tail: Not well- seen. Spleen: Size: 14.9cm. Echogenicity: Unremarkable. Right kidney: Size: 8.9 x 4.7 x 4.8 cm. Parenchyma: Increased echogenicity.. No cysts. No stones. Hydronephrosis: None. Ascites: None. Regional Vasculature: The visible abdominal aorta, IVC and hepatic veins are patent. The aorta measures 2 .2 cm proximally. Color and Spectral imaging:MPV: Diameter: 1.3 cm Flow: Hepatopedal. Velocity: 32.5 cm/sec Filling defects: NoneLeft and right portal veins: Patent. Flow: Antegrade Filling defects: None. Hepatic arteries: Patent RI proper hepatic: 0.9 RI right hepatic: 0.79 RI left hepatic: 0.77 IVC, Hepatic venous confluence, right HV, middle HV and left HV are patent. Additional findings: Bilateral pleural effusions.. 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 Elevated resistive indices in the hepatic arteries above nonspecific however recommend continued attention on follow-up imaging. Otherwise unremarkable hepatic transplant Doppler examination. Bilateral pleural effusions. Splenomegaly. Increased right renal parenchymal echogenicity is nonspecific however can be seen in the setting of medical renal disease. Signed: Aminata Fuenteseport Verified Date/Time: 11/06/2020 00:51:07 [facility] [id number] 00:01:00 Test Item Value Reference Range Interpretation Comments POC-GLUCOSE METER 117 mg/dL 70-110 H : TESTED A T [facility] 6720 (BEAKER) (test code = [place], 1538) [address]: E Commerce Solution Architect/Techni leah ID = [id number] for Ad Iveth corbin POCT-GLUCOSE [id number] 18:10:00 Test Item Value Reference Range Interpretation Comments POC-GLUCOSE METER 104 mg/dL 70-110 : TESTED A T [facility] 6720 (BEAKER) (test code = [place] [facility], 1538) [address]: E Commerce Solution Architect/Techni leah ID = [id number] for MO RRIS, CUCA BASIC METABOLIC [id number] 16:05:00 Test Item Value Reference Range Interpretation Comments SODIUM (BEAKER) 144 meq/L 136-145 (test code = 381) POTASSIUM (BEAKER) 3.7 meq/L 3.5-5.1 (test code = 379) CHLORIDE (BEAKER) 105 meq/L 98-107 (test code = 382) CO2 (BEAKER) (test 30 meq/L 22-29 H code = 355) BLOOD UREA NITROGEN 23 mg/dL 7-21 H (BEAKER) (test code = 354) CREATININE (BEAKER) 2.23 mg/dL 0.57-1.25 H (test code = 358) GLUCOSE RANDOM 130 mg/dL 70-105 H (BEAKER) (test code = 652) CALCIUM (BEAKER) 8.8 mg/dL 8.4-10.2 (test code = 697) EGFR (BEAKER) (test 22 mL/min/1.73 ESTIMA JUAN GFR IS code = 1092) sq m NOT ACCURATE CREATININE CLEARANCE IN PREDICTING GLOMERULAR FILTRATION RATE . ESTIMATED GFR I S NOT APPLICABLE FOR DIALYSIS PATIEN TS. E Commerce Solution Architect ID - [id number] 16:03:00 Test Item Value Reference Range Interpretation Comments MAGNESIUM (BEAKER) (test code = 2.3 mg/dL 1.6-2.6 627) E Commerce Solution Architect ID - [id number] 16:03:00 Test Item Value Reference Range Interpretation Comments PHOSPHORUS (BEAKER) (test code = 2.6 mg/dL 2.3-4.7 604) E Commerce Solution Architect ID - DBVancomycin level, [id number] 16:00:00 Test Item Value Reference Range Interpretation Comments Vancomycin Tr (test code = 5.5 ug/mL 10-20 L 4092-3) BRADLY (test code = BRADLY) E Commerce Solution Architect ID - DB Lab Interpretation (test Abnormal code = 43580-3) [facility]ANCOMY[facility] L[facility]EL, [id number] 16:00:00 Test Item Value Reference Range Interpretation Comments VANCOMYCIN TROUGH (BEAKER) (test 5.5 ug/mL 10.0-20.0 L code = 522) E Commerce Solution Architect ID - DBPOCT-GLUCOSE [id number] 12:57:00 Test Item Value Reference Range Interpretation Comments POC-GLUCOSE METER 114 mg/dL 70-110 H : TESTED A T [facility] 6720 (TIAN) (test code = [place], 1538) [address]: E Commerce Solution Architect/Techni leah ID = [id number] for MO RRIS, CUCA TACROLIMUS [id number] 09:33:00 Test Item Value Reference Range Interpretation Comments TACROLIMUS BLOOD 5.8 ng/mL 10.0-20.0 L Test perfor med on Watson (RAJI) (test code Architec t Immunoassay = 657) system with Chemiluminescen t Microparticle I mmunoassay (CMIA) technolo gy. E Commerce Solution Architect ID - AAHAMIDECG 12 [id number] 09:12:34Interface, External Ris In - 11/05/2020 9:12 AM CDTVentricular Rate 89 BPMAtrial Rate 89 BPMP-R Interval 190 msQRS Duration 102 msQ-T Interval 410 msQTC Calculation(Bazett) 498 msP [place] 67 degreesR [place] -2 degreesT [place] 67 degreesNormal sinus rhythmProlonged QTAbnormal ECGWhen compared with ECG of 09-AUG-2016 07:55,No significant change was foundConfirmed by MD NATHEN, BOBBY ([id number]) on 11/05/2020 9:12:31 [facility] surface [id number] 07:27:00 Test Item Value Reference Range Interpretation Comments HBsAg Screen (test code Nonreactive Nonreactive = 5195-3) BRADLY (test code = BRADLY) Specimen is considered negative for HBsAg. Lab Interpretation (test Normal code = 83998-1) [facility]areHEPATITIS B SURFACE [id number] 07:27:00 Test Item Value Reference Range Interpretation Comments HEPATITIS B SURFACE ANTIGEN (2) Nonreactive Nonreactive (BEAKER) (test code = 2585) Specimen is considered negative for HBsAg.BASIC METABOLIC [id number] 06:59:00 Test Item Value Reference Range Interpretation Comments SODIUM (BEAKER) 138 meq/L 136-145 (test code = 381) POTASSIUM (BEAKER) 4.8 meq/L 3.5-5.1 (test code = 379) CHLORIDE (BEAKER) 101 meq/L 98-107 (test code = 382) CO2 (BEAKER) (test 25 meq/L 22-29 code = 355) BLOOD UREA NITROGEN 78 mg/dL 7-21 H (BEAKER) (test code = 354) CREATININE (BEAKER) 5.19 mg/dL 0.57-1.25 H (test code = 358) GLUCOSE RANDOM 184 mg/dL 70-105 H (BEAKER) (test code = 652) CALCIUM (BEAKER) 8.0 mg/dL 8.4-10.2 L (test code = 697) EGFR (BEAKER) (test 8 mL/min/1.73 ESTIMAT ED GFR IS code = 1092) sq m NOT ACCURATE CREATININE CLEARANCE IN PREDICTING GLOMERULAR FILTRATION RATE . ESTIMATED GFR I S NOT APPLICABLE FOR DIALYSIS PATIEN TS. E Commerce Solution Architect ID - JAYLEN [id number] 06:51:00 Test Item Value Reference Range Interpretation Comments MAGNESIUM (BEAKER) (test code = 2.8 mg/dL 1.6-2.6 H 627) E Commerce Solution Architect ID - JAYLEN [id number] 06:51:00 Test Item Value Reference Range Interpretation Comments PHOSPHORUS (BEAKER) (test code = 4.5 mg/dL 2.3-4.7 604) E Commerce Solution Architect ID - JAYLEN MHEPATIC FUNCTION [id number] 06:51:00 Test Item Value Reference Range Interpretation Comments TOTAL PROTEIN (BEAKER) (test code = 6.1 gm/dL 6.0-8.3 770) ALBUMIN (BEAKER) (test code = 1145) 2.9 g/dL 3.5-5.0 L BILIRUBIN TOTAL (BEAKER) (test code 0.5 mg/dL 0.2-1.2 = 377) BILIRUBIN DIRECT (BEAKER) (test 0.3 mg/dL 0.1-0.5 code = 706) ALKALINE PHOSPHATASE (BEAKER) (test 71 U/L 40-150 code = 346) AST (SGOT) (BEAKER) (test code = 22 U/L 5-34 353) ALT (SGPT) (BEAKER) (test code = 21 U/L 6-55 347) E Commerce Solution Architect ID - JAYLEN MCALCIUM, [id number] 06:44:00 Test Item Value Reference Range Interpretation Comments CALCIUM IONIZED (BEAKER) (test 1.09 mmol/L 1.12-1.27 L code = 698) PH, BLOOD (BEAKER) (test code = 7.41 1810) CBC W/PLT COUNT & AUTO [id number] 06:31:00 Test Item Value Reference Range Interpretation Comments WHITE BLOOD CELL COUNT (BEAKER) 6.5 K/ L 3.5-10.5 (test code = 775) RED BLOOD CELL COUNT (BEAKER) 3.51 M/ L 3.93-5.22 L (test code = 761) HEMOGLOBIN (BEAKER) (test code = 9.3 GM/DL 11.2-15.7 L 410) HEMATOCRIT (BEAKER) (test code = 31.0 % 34.1-44.9 L 411) MEAN CORPUSCULAR VOLUME (BEAKER) 88.3 fL 79.4-94.8 (test code = 753) MEAN CORPUSCULAR HEMOGLOBIN 26.5 pg 25.6-32.2 (BEAKER) (test code = 751) MEAN CORPUSCULAR HEMOGLOBIN CONC 30.0 GM/DL 32.2-35.5 L (BEAKER) (test code = 752) RED CELL DISTRIBUTION WIDTH 16.8 % 11.7-14.4 H (BEAKER) (test code = 412) PLATELET COUNT (BEAKER) (test 174 K/CU MM 150-450 code = 756) MEAN PLATELET VOLUME (BEAKER) 9.1 fL 9.4-12.3 L (test code = 754) NUCLEATED RED BLOOD CELLS 0 /100 WBC 0-0 (BEAKER) (test code = 413) NEUTROPHILS RELATIVE PERCENT 86 % (BEAKER) (test code = 429) LYMPHOCYTES RELATIVE PERCENT 6 % (BEAKER) (test code = 430) MONOCYTES RELATIVE PERCENT 8 % (BEAKER) (test code = 431) EOSINOPHILS RELATIVE PERCENT 0 % (BEAKER) (test code = 432) BASOPHILS RELATIVE PERCENT 0 % (BEAKER) (test code = 437) NEUTROPHILS ABSOLUTE COUNT 5.58 K/ L 1.56-6.13 (BEAKER) (test code = 670) LYMPHOCYTES ABSOLUTE COUNT 0.36 K/ L 1.18-3.74 L (BEAKER) (test code = 414) MONOCYTES ABSOLUTE COUNT (BEAKER) 0.52 K/ L 0.24-0.36 H (test code = 415) EOSINOPHILS ABSOLUTE COUNT 0.00 K/ L 0.04-0.36 L (BEAKER) (test code = 416) BASOPHILS ABSOLUTE COUNT (BEAKER) 0.01 K/ L 0.01-0.08 (test code = 417) IMMATURE GRANULOCYTES-RELATIVE 0 % 0-1 PERCENT (BEAKER) (test code = 2801) POCT-GLUCOSE [id number] 06:24:00 Test Item Value Reference Range Interpretation Comments POC-GLUCOSE METER 171 mg/dL 70-110 H : TESTED A T [facility] 6720 (BEAKER) (test code = [place] [facility], 1538) [address]: E Commerce Solution Architect/Techni leah ID = [id number] for Iveth Hernandez ams [id number] 06:14:00 Test Item Value Reference Range Interpretation Comments PARTIAL THROMBOPLASTIN TIME 47.1 seconds 22.5-36.0 H (BEAKER) (test code = 760) PROTHROMBIN [id number] 06:13:00 Test Item Value Reference Range Interpretation Comments PROTIME (BEAKER) 19.3 seconds 11.9-14.2 H (test code = 759) INR (BEAKER) (test 1.65 See_Comment [Automat ed message] code = 370) The system Convozine generated this result transmitted ref erence range: <=5.90. The reference range was not used to int erpret this result as normal/abnormal . RECOMMENDED COUMADIN/WARFARIN INR THERAPY RANGESSTANDARD DOSE: 2.0 - 3.0 Includes: PROPHYLAXIS forvenous thrombosis, systemic embolization; TREATMENT for venous thrombosis and/or pulmonary embolus.HIGH RISK: Target INR is 2.5-3.5 for patients with mechanical heart valves.POCT-GLUCOSE [id number] 00:26:00 Test Item Value Reference Range Interpretation Comments POC-GLUCOSE METER 164 mg/dL 70-110 H : TESTED A T [facility] 6720 (BEAKER) (test code = [place], 1538) [address]: E Commerce Solution Architect/Techni leah ID = [id number] for IB ENEME, EUCHERIA BASIC METABOLIC [id number] 19:30:00 Test Item Value Reference Range Interpretation Comments SODIUM (BEAKER) 137 meq/L 136-145 (test code = 381) POTASSIUM (BEAKER) 4.6 meq/L 3.5-5.1 (test code = 379) CHLORIDE (BEAKER) 102 meq/L 98-107 (test code = 382) CO2 (BEAKER) (test 21 meq/L 22-29 L code = 355) BLOOD UREA NITROGEN 73 mg/dL 7-21 H (BEAKER) (test code = 354) CREATININE (BEAKER) 4.79 mg/dL 0.57-1.25 H (test code = 358) GLUCOSE RANDOM 218 mg/dL 70-105 H (BEAKER) (test code = 652) CALCIUM (BEAKER) 8.5 mg/dL 8.4-10.2 (test code = 697) EGFR (BEAKER) (test 9 mL/min/1.73 ESTIMAT ED GFR IS code = 1092) sq m NOT ACCURATE CREATININE CLEARANCE IN PREDICTING GLOMERULAR FILTRATION RATE . ESTIMATED GFR I S NOT APPLICABLE FOR DIALYSIS PATIEN TS. E Commerce Solution Architect ID - [id number] 19:29:00 Test Item Value Reference Range Interpretation Comments MAGNESIUM (BEAKER) (test code = 2.6 mg/dL 1.6-2.6 627) E Commerce Solution Architect ID - [id number] 19:29:00 Test Item Value Reference Range Interpretation Comments PHOSPHORUS (BEAKER) (test code = 4.2 mg/dL 2.3-4.7 604) E Commerce Solution Architect ID - BSHEPATIC FUNCTION [id number] 19:29:00 Test Item Value Reference Range Interpretation Comments TOTAL PROTEIN (BEAKER) (test code = 6.0 gm/dL 6.0-8.3 770) ALBUMIN (BEAKER) (test code = 1145) 2.9 g/dL 3.5-5.0 L BILIRUBIN TOTAL (BEAKER) (test code 0.5 mg/dL 0.2-1.2 = 377) BILIRUBIN DIRECT (BEAKER) (test 0.3 mg/dL 0.1-0.5 code = 706) ALKALINE PHOSPHATASE (BEAKER) (test 67 U/L 40-150 code = 346) AST (SGOT) (BEAKER) (test code = 29 U/L 5-34 353) ALT (SGPT) (BEAKER) (test code = 24 U/L 6-55 347) E Commerce Solution Architect ID - [id number] 19:26:00 Test Item Value Reference Range Interpretation Comments PARTIAL THROMBOPLASTIN TIME 45.9 seconds 22.5-36.0 H (BEAKER) (test code = 760) PROTHROMBIN [id number] 19:25:00 Test Item Value Reference Range Interpretation Comments PROTIME (BEAKER) 19.8 seconds 11.9-14.2 H (test code = 759) INR (BEAKER) (test 1.71 See_Comment [Automat ed message] code = 370) The system Convozine generated this result transmitted ref erence range: <=5.90. The reference range was not used to int erpret this result as normal/abnormal . RECOMMENDED COUMADIN/WARFARIN INR THERAPY RANGESSTANDARD DOSE: 2.0 - 3.0 Includes: PROPHYLAXIS forvenous thrombosis, systemic embolization; TREATMENT for venous thrombosis and/or pulmonary embolus.HIGH RISK: Target INR is 2.5-3.5 for patients with mechanical heart valves.Lactic Acid, [id number] 19:17:00 Test Item Value Reference Range Interpretation Comments Lactate, Art (test 2.6 mmol/L 0.5-2.2 H Specimen code = 2874) moderately hemolyzed BRADLY (test code = BRADLY) E Commerce Solution Architect ID - BS Lab Interpretation Abnormal (test code = 72064-6) [facility]are[facility]CT[facility] ACID, [id number] 19:17:00 Test Item Value Reference Range Interpretation Comments LACTATE BLOOD 2.6 mmol/L 0.5-2.2 H Specimen moder ately ARTERIAL (2) (BEAKER) hemoly zed (test code = 2874) E Commerce Solution Architect ID - BSCBC W/PLT COUNT & AUTO [id number] 19:13:00 Test Item Value Reference Range Interpretation Comments WHITE BLOOD CELL COUNT (BEAKER) 7.3 K/ L 3.5-10.5 (test code = 775) RED BLOOD CELL COUNT (BEAKER) 3.59 M/ L 3.93-5.22 L (test code = 761) HEMOGLOBIN (BEAKER) (test code = 9.8 GM/DL 11.2-15.7 L 410) HEMATOCRIT (BEAKER) (test code = 31.8 % 34.1-44.9 L 411) MEAN CORPUSCULAR VOLUME (BEAKER) 88.6 fL 79.4-94.8 (test code = 753) MEAN CORPUSCULAR HEMOGLOBIN 27.3 pg 25.6-32.2 (BEAKER) (test code = 751) MEAN CORPUSCULAR HEMOGLOBIN CONC 30.8 GM/DL 32.2-35.5 L (BEAKER) (test code = 752) RED CELL DISTRIBUTION WIDTH 16.6 % 11.7-14.4 H (BEAKER) (test code = 412) PLATELET COUNT (BEAKER) (test 177 K/CU MM 150-450 code = 756) MEAN PLATELET VOLUME (BEAKER) 9.4 fL 9.4-12.3 (test code = 754) NUCLEATED RED BLOOD CELLS 0 /100 WBC 0-0 (BEAKER) (test code = 413) NEUTROPHILS RELATIVE PERCENT 86 % (BEAKER) (test code = 429) LYMPHOCYTES RELATIVE PERCENT 6 % (BEAKER) (test code = 430) MONOCYTES RELATIVE PERCENT 7 % (BEAKER) (test code = 431) EOSINOPHILS RELATIVE PERCENT 0 % (BEAKER) (test code = 432) BASOPHILS RELATIVE PERCENT 0 % (BEAKER) (test code = 437) NEUTROPHILS ABSOLUTE COUNT 6.32 K/ L 1.56-6.13 H (BEAKER) (test code = 670) LYMPHOCYTES ABSOLUTE COUNT 0.43 K/ L 1.18-3.74 L (BEAKER) (test code = 414) MONOCYTES ABSOLUTE COUNT (BEAKER) 0.53 K/ L 0.24-0.36 H (test code = 415) EOSINOPHILS ABSOLUTE COUNT 0.00 K/ L 0.04-0.36 L (BEAKER) (test code = 416) BASOPHILS ABSOLUTE COUNT (BEAKER) 0.02 K/ L 0.01-0.08 (test code = 417) IMMATURE GRANULOCYTES-RELATIVE 0 % 0-1 PERCENT (BEAKER) (test code = 2801) SARS-COV2/RT-PCR ([facility])2020-11-04 15:50:00 Test Item Value Reference Range Interpretation Comments SARS-COV2/RT-PCR (test Negative Not Detected, Negative, code = 5938088) See external report for linked test SARS-COV-2 PERFORMING LAB [facility] (test code = 6972542) Negative result for this test determines that SARS-CoV-2 RNA was not present in the specimen above the Limit of Detection (LOD). However, Negative results do not preclude SARS-CoV-2 infection and should not be used as the sole basis for treatment or patient management decisions. Negative results mustbe combined with clinical observations, patient history, and epidemiological information. A false negative result may occur if a specimen is improperly collected, transported or handled. A false negative result should be considered if patient's recent exposures or clinical presentation indicate that COVID-19 (SARS-CoV-2) is likely and diagnostic tests for other causes of illness are negative. Re-testing should be considered in cases of suspected false negatives.The limit of detection for this assay is 800 copies/mL.This SARS CoV-2 test is a real-time RT-PCR test intended for the qualitative detection of nucleic acid from SARS-CoV-2 in a nasopharyngeal swab specimen collected from individuals susp ected of COVID-19 by their healthcare provider.This test has not been Food and Drug Administration (FDA) cleared or approved. This is a modified version of an approved Emergency Use Authorization (EUA) and is in the process of review by the FDA. Once authorized by the FDA, the issued EUA will be effective until the declaration that circumstances exist justifying the authorization of the emergency use of in vitro diagnostic tests for detection and/or diagnosis of COVID-19 is terminated under Section 564(b)(2) of the Act or the EUA is revoked under Section 564(g) of the Act.Fact Sheet for Healthcare Providers:https://www.Fileboard.Jellynote/sites/default/files/product/documents/Fact_Shee i_YK_Rogcvgiav_Cybc_ZGOO-VgM-0.pdfFact Sheet for Healthcare Patients:https://www.Fileboard.Jellynote/sites/default/files/product/ documents/Ohjh_Lheqz_Snopjzwo_Bclx_LXEE-ZcL-4.pdfPerforming Laboratory:[facility], [place] [address]RLAT-KYPSEUN METER 2020-11-04 15:37:00 Test Item Value Reference Range Interpretation Comments POC-GLUCOSE METER 223 mg/dL 70-110 H : TESTED A T [facility] 6720 (BEAKER) (test code [facility], = 1538) [address]: E Commerce Solution Architect/Techni leah ID = [id number] for DENEEN NUNEZ CBC W/PLT COUNT & AUTO [id number] 14:30:00 Test Item Value Reference Range Interpretation Comments WHITE BLOOD CELL COUNT (BEAKER) 9.9 K/ L 3.5-10.5 (test code = 775) RED BLOOD CELL COUNT (BEAKER) 4.10 M/ L 3.93-5.22 (test code = 761) HEMOGLOBIN (BEAKER) (test code = 10.9 GM/DL 11.2-15.7 L 410) HEMATOCRIT (BEAKER) (test code = 36.3 % 34.1-44.9 411) MEAN CORPUSCULAR VOLUME (BEAKER) 88.5 fL 79.4-94.8 (test code = 753) MEAN CORPUSCULAR HEMOGLOBIN 26.6 pg 25.6-32.2 (BEAKER) (test code = 751) MEAN CORPUSCULAR HEMOGLOBIN CONC 30.0 GM/DL 32.2-35.5 L (BEAKER) (test code = 752) RED CELL DISTRIBUTION WIDTH 16.5 % 11.7-14.4 H (BEAKER) (test code = 412) PLATELET COUNT (BEAKER) (test 202 K/CU MM 150-450 code = 756) MEAN PLATELET VOLUME (BEAKER) 9.8 fL 9.4-12.3 (test code = 754) NUCLEATED RED BLOOD CELLS 0 /100 WBC 0-0 (BEAKER) (test code = 413) (CELLAVISION MANUAL DIFF)2020-11-04 14:30:00 Test Item Value Reference Range Interpretation Comments NEUTROPHILS - REL 88 % (CELLAVISION)(BEAKER) (test code = 2816) LYMPHOCYTES - REL 3 % (CELLAVISION)(BEAKER) (test code = 2817) MONOCYTES - REL 4 % (CELLAVISION)(BEAKER) (test code = 2818) BANDS - REL (CELLAVISION)(BEAKER) 5 % 0-10 (test code = 2826) NEUTROPHILS - ABS 8.71 K/ul 1.56-6.13 H (CELLAVISION)(BEAKER) (test code = 2830) LYMPHOCYTES - ABS 0.30 K/ul 1.18-3.74 L (CELLAVISION)(BEAKER) (test code = 2831) MONOCYTES - ABS 0.40 K/uL 0.24-0.36 H (CELLAVISION)(BEAKER) (test code = 2832) BANDS - ABS (CELLAVISION)(BEAKER) 0.50 K/uL 0.00-0.80 (test code = 2840) TOTAL COUNTED (BEAKER) (test code 100 = 1351) PLT MORPHOLOGY (BEAKER) (test Normal code = 486) VACUOLATED NEUTROPHILS (BEAKER) Present (test code = 483) POLYCHROMATOPHILLIC RBCS(BEAKER) 1+ few (test code = 478) ANISOCYTOSIS (BEAKER) (test code 1+ few = 961) MICROCYTES (BEAKER) (test code = 1+ few 965) POIKILOCYTES (BEAKER) (test code 2+ moderate = 966) ELLIPTOCYTES (BEAKER) (test code 1+ few = 962) OVALOCYTES (BEAKER) (test code = 1+ few 477) ACANTHOCYTES (BEAKER) (test code 2+ moderate = 471) ARTIFACT (CELLAVISION)(BEAKER) Present (test code = 3432) PLATELET CONCENTRATION Adequate (CELLAVISION)(BEAKER) (test code = 3438) E Commerce Solution Architect ID - Courtney Foote comments: Slide comments:Type and screen, [id number] 10:04:00 Test Item Value Reference Range Interpretation Comments ABO/RH AUTOMATED (BEAKER) (test B POSITIVE code = 2260) Ab Scrn (test code = 890-4) NEGATIVE [facility] [id number] 10:04:00 Test Item Value Reference Range Interpretation Comments SODIUM (BEAKER) 137 meq/L 136-145 (test code = 381) POTASSIUM (BEAKER) 4.7 meq/L 3.5-5.1 Specimen slightly (test code = 379) hemolyzed CHLORIDE (BEAKER) 101 meq/L 98-107 (test code = 382) CO2 (BEAKER) (test 23 meq/L 22-29 code = 355) BLOOD UREA NITROGEN 64 mg/dL 7-21 H (BEAKER) (test code = 354) CREATININE (BEAKER) 4.56 mg/dL 0.57-1.25 H Specimen slightly (test code = 358) hemolyzed GLUCOSE RANDOM 229 mg/dL 70-105 H (BEAKER) (test code = 652) CALCIUM (BEAKER) 8.0 mg/dL 8.4-10.2 L (test code = 697) EGFR (BEAKER) (test 10 mL/min/1.73 ESTIMA JUAN GFR IS code = 1092) sq m NOT ACCURATE CREATININE CLEARANCE IN PREDICTING GLOMERULAR FILTRATION RATE . ESTIMATED GFR I S NOT APPLICABLE FOR DIALYSIS PATIEN TS. E [employer] Solution Architect ID - ADMINPOCT-GLUCOSE [id number] 08:34:00 Test Item Value Reference Range Interpretation Comments POC-GLUCOSE METER 210 mg/dL 70-110 H : TESTED A T [facility] 6720 (BEAKER) (test code = [place], 1538) [address]: E Commerce Solution Architect/Techni leah ID = [id number] for Carol Kong HEPATIC FUNCTION [id number] 07:43:00 Test Item Value Reference Range Interpretation Comments TOTAL PROTEIN (BEAKER) 8.0 gm/dL 6.0-8.3 Speci men slightly (test code = 770) hemolyzed ALBUMIN (BEAKER) (test 3.6 g/dL 3.5-5.0 Speci men slightly code = 1145) hemolyzed BILIRUBIN TOTAL 0.6 mg/dL 0.2-1.2 Specimen sli ghtly (BEAKER) (test code = hemoly zed 377) BILIRUBIN DIRECT 0.3 mg/dL 0.1-0.5 Specimen sl ightly (BEAKER) (test code = hemoly zed 706) ALKALINE PHOSPHATASE 97 U/L 40-150 (BEAKER) (test code = 346) AST (SGOT) (BEAKER) 26 U/L 5-34 Specimen slightly (test code = 353) hemolyzed ALT (SGPT) (BEAKER) 18 U/L 6-55 Specimen slightly (test code = 347) hemolyzed E [employer] Solution Architect ID - ADMINBASIC METABOLIC [id number] 05:53:00 Test Item Value Reference Range Interpretation Comments SODIUM (BEAKER) 139 meq/L 136-145 (test code = 381) POTASSIUM (BEAKER) 4.6 meq/L 3.5-5.1 Specimen slightly (test code = 379) hemolyzed CHLORIDE (BEAKER) 99 meq/L 98-107 (test code = 382) CO2 (BEAKER) (test 24 meq/L 22-29 code = 355) BLOOD UREA NITROGEN 53 mg/dL 7-21 H (BEAKER) (test code = 354) CREATININE (BEAKER) 4.19 mg/dL 0.57-1.25 H Specimen slightly (test code = 358) hemolyzed GLUCOSE RANDOM 202 mg/dL 70-105 H (BEAKER) (test code = 652) CALCIUM (BEAKER) 8.5 mg/dL 8.4-10.2 (test code = 697) EGFR (BEAKER) (test 11 mL/min/1.73 ESTIMA JUAN GFR IS code = 1092) sq m NOT ACCURATE CREATININE CLEARANCE IN PREDICTING GLOMERULAR FILTRATION RATE . ESTIMATED GFR I S NOT APPLICABLE FOR DIALYSIS PATIEN TS. E Commerce Solution Architect ID - ADMINCBC W/PLT COUNT & AUTO [id number] 05:36:00 Test Item Value Reference Range Interpretation Comments WHITE BLOOD CELL COUNT (BEAKER) 11.0 K/ L 3.5-10.5 H (test code = 775) RED BLOOD CELL COUNT (BEAKER) 4.80 M/ L 3.93-5.22 (test code = 761) HEMOGLOBIN (BEAKER) (test code = 12.9 GM/DL 11.2-15.7 410) HEMATOCRIT (BEAKER) (test code = 42.1 % 34.1-44.9 411) MEAN CORPUSCULAR VOLUME (BEAKER) 87.7 fL 79.4-94.8 (test code = 753) MEAN CORPUSCULAR HEMOGLOBIN 26.9 pg 25.6-32.2 (BEAKER) (test code = 751) MEAN CORPUSCULAR HEMOGLOBIN CONC 30.6 GM/DL 32.2-35.5 L (BEAKER) (test code = 752) RED CELL DISTRIBUTION WIDTH 16.3 % 11.7-14.4 H (BEAKER) (test code = 412) PLATELET COUNT (BEAKER) (test 217 K/CU MM 150-450 code = 756) MEAN PLATELET VOLUME (BEAKER) 9.3 fL 9.4-12.3 L (test code = 754) NUCLEATED RED BLOOD CELLS 0 /100 WBC 0-0 (BEAKER) (test code = 413) NEUTROPHILS RELATIVE PERCENT 89 % (BEAKER) (test code = 429) LYMPHOCYTES RELATIVE PERCENT 4 % (BEAKER) (test code = 430) MONOCYTES RELATIVE PERCENT 6 % (BEAKER) (test code = 431) EOSINOPHILS RELATIVE PERCENT 0 % (BEAKER) (test code = 432) BASOPHILS RELATIVE PERCENT 0 % (BEAKER) (test code = 437) NEUTROPHILS ABSOLUTE COUNT 9.76 K/ L 1.56-6.13 H (BEAKER) (test code = 670) LYMPHOCYTES ABSOLUTE COUNT 0.46 K/ L 1.18-3.74 L (BEAKER) (test code = 414) MONOCYTES ABSOLUTE COUNT (BEAKER) 0.66 K/ L 0.24-0.36 H (test code = 415) EOSINOPHILS ABSOLUTE COUNT 0.00 K/ L 0.04-0.36 L (BEAKER) (test code = 416) BASOPHILS ABSOLUTE COUNT (BEAKER) 0.01 K/ L 0.01-0.08 (test code = 417) IMMATURE GRANULOCYTES-RELATIVE 1 % 0-1 PERCENT (BEAKER) (test code = 2801) Lactic acid, [id number] 05:35:00 Test Item Value Reference Range Interpretation Comments Lactate, Venous (test 3.55 mmol/L 0.5-2.2 H Specim en code = 2872) slightly hemolyzed BRADLY (test code = BRADLY) E Commerce Solution Architect ID - ADMIN Lab Interpretation Abnormal (test code = 03196-0) [facility]CT[facility], [id number] 05:35:00 Test Item Value Reference Range Interpretation Comments LACTATE BLOOD VENOUS 3.55 mmol/L 0.50-2.20 H Specime n slightly (2) (BEAKER) (test hemolyzed code = 2872) E [employer] Solution Architect ID - ADMINPROTHROMBIN [id number] 05:24:00 Test Item Value Reference Range Interpretation Comments PROTIME (BEAKER) 15.2 seconds 11.9-14.2 H (test code = 759) INR (BEAKER) (test 1.22 See_Comment [Automat ed message] code = 370) The system Convozine generated this result transmitted ref erence range: <=5.90. The reference range was not used to int erpret this result as normal/abnormal . RECOMMENDED COUMADIN/WARFARIN INR THERAPY RANGESSTANDARD DOSE: 2.0 - 3.0 Includes: PROPHYLAXIS forvenous thrombosis, systemic embolization; TREATMENT for venous thrombosis and/or pulmonary embolus.HIGH RISK: Target INR is 2.5-3.5 for patients with mechanical heart valves.[id number] 00:00:00Ordered by an unspecified provider.[facility]GL[facility] 2019-04-14 17:00:00 Test Item Value Reference Range Interpretation Comments POC-GLUCOSE METER 82 mg/dL 70-110 : TESTED A T [facility] (BEAKER) (test code = [address], 15[address]) [place] [address]: E Commerce Solution Architect/Techni leah ID = [id number] for Susana Zaldivar POCT-GLUCOSE [id number] 13:38:00 Test Item Value Reference Range Interpretation Comments POC-GLUCOSE METER 143 mg/dL 70-110 H : TESTED A T [facility] (BEAKER) (test code [address], = 1538) [place] [address]: E Commerce Solution Architect/Techni leah ID = [id number] for [address] BASIC METABOLIC [id number] 14:15:00 Test Item Value Reference Range Interpretation [...] 697) EGFR (BEAKER) (test 11 mL/min/1.73 ESTIMA JUAN GFR IS code = 1092) sq m NOT ACCURATE CREATININE CLEARANCE IN PREDICTING GLOMERULAR FILTRATION RATE . ESTIMATED GFR I S NOT APPLICABLE FOR DIALYSIS PATIEN TS. [id number] 14:10:00 Test Item Value Reference Range Interpretation [...] Information (Auto Output)CBC W/PLT COUNT & AUTO [id number] 13:57:00 Test Item Value Reference Range Interpretation [...] (BEAKER) (test code = 2801) HEPATITIS PANEL, [id number] 13:23:00 Test Item Value Reference Range Interpretation Comments HEPATITIS A IGM ANTIBODY (BEAKER) Nonreactive Nonreactive (test code = 498) HEPATITIS B CORE IGM ANTIBODY Nonreactive Nonreactive (BEAKER) (test code = 645) HEPATITIS C ANTIBODY (BEAKER) Reactive Nonreactive A (test code = 367) HEPATITIS B SURFACE ANTIGEN (2) Nonreactive Nonreactive (BEAKER) (test code = 2585) HEPATITIS C PCR, [id number] 09:00:00 Test Item Value Reference Range Interpretation Comments HCV RESULT COMPONENT HCV RNA not detected HCV RNA not detected (BEAKER) (test code = 2699) This test uses a Real-Time Polymerase Chain Reaction (RT-PCR) methodology and was performed using LAZ Ampliprep/LAZ TaqMan HCV test kit version 2.0 ([employer]).Reportable range for this assay is 15 - 100,000,000 IU per mL (1.18 - 8.00 Log IU/mL).RAD, CHEST, 2 [id number] 12:43:00PA and Lateral for Liver TransplantReason for [...] IMPRESSION: No acute cardiopulmonary abnormality. Signed: Blue Chambers MDReport Verified Date/Time: 11/18/2018 12:43:30 Reading Location: [facility] 12:43 PMU/S, ABDOMINAL, WITH [id number] 12:41:00Doppler Study to evaluate Hepatic vesselsReason for [...] arteries. Otherwise unremarkable hepatic Doppler. Signed: Nino Mathew MDReport Verified Date/Time: 11/18/2018 12:41:02 Reading Location: [address] Radiology ReadingRoom TACROLIMUS [id number] 11:19:00 Test Item Value Reference Range Interpretation Comments TACROLIMUS BLOOD (BEAKER) (test 12.6 ng/mL 10.0-20.0 code = 657) COMPREHENSIVE METABOLIC [id number] 09:26:00 Test Item Value Reference Range Interpretation [...] 347) EGFR (BEAKER) (test 11 mL/min/1.73 ESTIMA JUAN GFR IS code = 1092) sq m NOT ACCURATE CREATININE CLEARANCE IN PREDICTING GLOMERULAR FILTRATION RATE . ESTIMATED GFR I S NOT APPLICABLE FOR DIALYSIS PATIEN TS. [id number] 08:48:00 Test Item Value Reference Range Interpretation Comments PHOSPHORUS (BEAKER) (test code = 6.5 mg/dL 2.3-4.7 H 604) [id number] 08:48:00 Test Item Value Reference Range Interpretation Comments MAGNESIUM (BEAKER) (test code = 3.1 mg/dL 1.6-2.6 H 627) BILIRUBIN, [id number] 08:48:00 Test Item Value Reference Range Interpretation Comments BILIRUBIN DIRECT (BEAKER) (test 0.4 mg/dL 0.1-0.5 code = 706) CBC W/PLT COUNT & AUTO [id number] 08:07:00 Test Item Value Reference Range Interpretation [...] % 0-1 PERCENT (BEAKER) (test code = 280) POCT-GLUCOSE [id number] 14:28:00 Test Item Value Reference Range Interpretation Comments POC-GLUCOSE METER 89 mg/dL 70-110 TESTED AT [place] [address] ([facility]) (test code = [facility] [address] 1538) POCT-GLUCOSE [id number] 11:40:00 Test Item Value Reference Range Interpretation Comments POC-GLUCOSE METER 131 mg/dL 70-110 H TESTED AT [place] [address] ([facility]) (test code = [facility] 1538) [address] TACROLIMUS [id number] 09:35:00 Test Item Value Reference Range Interpretation Comments TACROLIMUS BLOOD ([facility]) (test 5.7 ng/mL 10.0-20.0 L code = 657) POCT-GLUCOSE [id number] 07:27:00 Test Item Value Reference Range Interpretation Comments POC-GLUCOSE METER 101 mg/dL 70-110 TESTED AT [place] [address] ([facility]) (test code = [facility] 1538) [address] BASIC METABOLIC [id number] 06:57:00 Test Item Value Reference Range Interpretation [...] 697) EGFR (BEAKER) (test 17 mL/min/1.73 ESTIMA JUAN GFR IS code = 1092) sq m NOT ACCURATE CREATININE CLEARANCE IN PREDICTING GLOMERULAR FILTRATION RATE . ESTIMATED GFR I S NOT APPLICABLE FOR DIALYSIS PATIEN TS. HEPATIC FUNCTION [id number] 06:56:00 Test Item Value Reference Range Interpretation [...] code = 15 U/L 6-55 347) POCT-GLUCOSE [id number] 16:39:00 Test Item Value Reference Range Interpretation Comments POC-GLUCOSE METER 149 mg/dL 70-110 H TESTED AT [facility] 6720 (BEAKER) (test code = [place] 1538) [address] HEPATITIS B SURFACE [id number] 15:26:00 Test Item Value Reference Range Interpretation Comments HEPATITIS B SURFACE ANTIBODY < mIU/mL <8.0 (BEAKER) (test code = 647) POCT-GLUCOSE [id number] 12:22:00 Test Item Value Reference Range Interpretation Comments POC-GLUCOSE METER 141 mg/dL 70-110 H TESTED AT [facility] 6720 ([facility]) (test code = [facility] [place] 1538) [address] TACROLIMUS [id number] 09:43:00 Test Item Value Reference Range Interpretation Comments TACROLIMUS BLOOD (BEAKER) (test 5.5 ng/mL 10.0-20.0 L code = 657) POCT-GLUCOSE [id number] 07:48:00 Test Item Value Reference Range Interpretation Comments POC-GLUCOSE METER 135 mg/dL 70-110 H TESTED AT [facility] 6720 ([facility]) (test code = [facility] 1538) [address] BASIC METABOLIC [id number] 07:00:00 Test Item Value Reference Range Interpretation [...] 697) EGFR (BEAKER) (test 20 mL/min/1.73 ESTIMA JUAN GFR IS code = 1092) sq m NOT ACCURATE CREATININE CLEARANCE IN PREDICTING GLOMERULAR FILTRATION RATE . ESTIMATED GFR I S NOT APPLICABLE FOR DIALYSIS PATIEN TS. HEPATIC FUNCTION [id number] 06:54:00 Test Item Value Reference Range Interpretation Comments TOTAL PROTEIN (BEAKER) (test code = 6.5 gm/dL 6.0-8.3 770) ALBUMIN (BEAKER) (test code = 1145) 2.9 g/dL 3.5-5.0 L BILIRUBIN TOTAL ([facility]) (test code 0.9 mg/dL 0.2-1.2 = 377) BILIRUBIN DIRECT ([facility]) (test 0.5 mg/dL 0.1-0.5 code = 706) ALKALINE PHOSPHATASE ([facility]) (test 82 U/L 40-150 code = 346) AST (SGOT) ([facility]) (test code = 21 U/L 5-34 353) ALT (SGPT) ([facility]) (test code = 15 U/L 6-55 347) POCT-GLUCOSE [id number] 16:29:00 Test Item Value Reference Range Interpretation Comments POC-GLUCOSE METER 167 mg/dL 70-110 H TESTED AT [place] [address] ([facility]) (test code = [facility] 1538) [address] POCT-GLUCOSE [id number] 12:30:00 Test Item Value Reference Range Interpretation Comments POC-GLUCOSE METER 116 mg/dL 70-110 H TESTED AT [place] [address] ([facility]) (test code = [facility] 1538) [address] TACROLIMUS [id number] 11:11:00 Test Item Value Reference Range Interpretation Comments TACROLIMUS BLOOD ([facility]) (test 4.3 ng/mL 10.0-20.0 L code = 657) HEPATITIS C PCR, [id number] 09:05:00 Test Item Value Reference Range Interpretation Comments HCV RESULT COMPONENT HCV RNA not detected HCV RNA not detected ([facility]) (test code = 2699) This test uses a Real-Time Polymerase Chain Reaction (RT-PCR) methodology and was performed using LAZ Ampliprep/LAZ TaqMan HCV test kit version 2.0 ([employer]).Reportable range for this assay is 15 - 100,000,000 IU per mL (1.18 - 8.00 Log IU/mL).POCT-GLUCOSE [id number] 08:55:00 Test Item Value Reference Range Interpretation Comments POC-GLUCOSE METER 114 mg/dL 70-110 H TESTED AT [place] [address] ([facility]) (test code = [facility] 1538) [address] HEPATIC FUNCTION [id number] 06:29:00 Test Item Value Reference Range Interpretation Comments TOTAL PROTEIN ([facility]) (test code = 6.5 gm/dL 6.0-8.3 770) ALBUMIN ([facility]) (test code = 1145) 3.0 g/dL 3.5-5.0 L BILIRUBIN TOTAL (BEAKER) (test code 0.8 mg/dL 0.2-1.2 = 377) BILIRUBIN DIRECT ([facility]) (test 0.5 mg/dL 0.1-0.5 code = 706) ALKALINE PHOSPHATASE (BEAKER) (test 86 U/L 40-150 code = 346) AST (SGOT) (BEAKER) (test code = 14 U/L 5-34 353) ALT (SGPT) ([facility]) (test code = 11 U/L 6-55 347) POCT-GLUCOSE [id number] 22:27:00 Test Item Value Reference Range Interpretation Comments POC-GLUCOSE METER 272 mg/dL 70-110 H TESTED AT [place] [address] ([facility]) (test code = [place] [facility] 1538) [address] POCT-GLUCOSE [id number] 16:45:00 Test Item Value Reference Range Interpretation Comments POC-GLUCOSE METER 108 mg/dL 70-110 TESTED AT [place] [address] ([facility]) (test code = [facility] Jack [facility] 1538) [address] POCT-GLUCOSE [id number] 11:54:00 Test Item Value Reference Range Interpretation Comments POC-GLUCOSE METER 153 mg/dL 70-110 H TESTED AT [place] [address] ([facility]) (test code = [facility] Jack [facility] 1538) [address] TACROLIMUS [id number] 09:55:00 Test Item Value Reference Range Interpretation Comments TACROLIMUS BLOOD ([facility]) (test 5.5 ng/mL 10.0-20.0 L code = 657) U/S, [id number] 09:51:00Laterality?->RightReason for exam:->dyspneaFINAL REPORT Exam: Ultrasound guided [...] PA-C under direct supervision of Dr. Al Sandoval Signed: Al Sandoval MDReport Verified Date/Time: 09/09/2018 09:51:20 Reading Location: [address] Transitional Reading Room BASIC METABOLIC PANEL [...] 697) EGFR (BEAKER) (test 19 mL/min/1.73 ESTIMA JUAN GFR IS code = 1092) sq m NOT ACCURATE CREATININE CLEARANCE IN PREDICTING GLOMERULAR FILTRATION RATE . ESTIMATED GFR I S NOT APPLICABLE FOR DIALYSIS PATIEN TS. POCT-GLUCOSE [id number] 07:33:00 Test Item Value Reference Range Interpretation Comments POC-GLUCOSE METER 175 mg/dL 70-110 H TESTED AT [facility] 6720 (BEAKER) (test code = [place] 1538) [address] HEPATIC FUNCTION [id number] 06:51:00 Test Item Value Reference Range Interpretation [...] code = 10 U/L 6-55 347) POCT-GLUCOSE [id number] 01:03:00 Test Item Value Reference Range Interpretation Comments POC-GLUCOSE METER 207 mg/dL 70-110 H TESTED AT [facility] 67 ([facility]) (test code = [place] [facility] 1538) [address] POCT-GLUCOSE [id number] 16:52:00 Test Item Value Reference Range Interpretation Comments POC-GLUCOSE METER 296 mg/dL 70-110 H TESTED AT [place] [address] ([facility]) (test code = BRENDA Santiago [facility] 1538) [address] ANG, TUNNELED CATHETER [id number] 15:43:00Tunneled dialysis catheter placement, may be done [...] Physician intra- service time was 20 min. Parimutuel Ticket Checker: Yessenia. Sas Developer: None. Approach: Right internal jugular vein Estimated [...] needle into the right atrium. A 4 [place] micropuncture sheath was placed. A subcutaneous tunnel was created in the right anterior chest wall by blunt dissection. A 19 cm 15.5 [place] Duraflow 2 catheter was brought through the [...] fluoroscopic guidance and conscious sedation. Signed: Alfredo Peoples MDReport Verified Date/Time: 09/08/2018 15:43:17 Reading Location: [facility] B1 P048 Angio Body Reading Room CYTOLOGY 2018-09-08 11:56:00Medical Cytology Report Case: [id number] Authorizing Provider: eWro Sharp MD Collected: 09/04/2018 1820 Ordering Location: [address] Received: 09/05/2018 0840 Pathologist: Donnie Otoole MD Specimen: Pleural, Right RIGHT PLEURAL FLUID (CYTOSPINS AND CELL BLOCK): - REACTIVE MESOTHELIAL CELLS IN A BACKGROUND OF CHRONIC INFLAMMATION Signing Pathologist Direct Phone Line: [phone] signed by Donnie Otoole MD on 09/08/2018 at 11:56 [id number], [id number] pleural effusion, history of hepatocellular cancerRIGHT PLEURAL [id number] mls orange; 4 cytospins, cell blockCollected: [id number]: [id number] [facility], Department of Pathology, [address] [place] [id number], Tel [phone]. [facility], [facility] of [facility]ology, [address] [place] [phone], [facility], Department of [facility]ology, [address] [place], [place] [address], PHTP-GLUCOSE [id number] 11:51:00 Test Item Value Reference Range Interpretation Comments POC-GLUCOSE METER 166 mg/dL 70-110 H TESTED AT [place] [address] (BEAKER) (test code = BRENDA Santiago [facility] 1538) [address] TACROLIMUS [id number] 11:01:00 Test Item Value Reference Range Interpretation Comments TACROLIMUS BLOOD (BEAKER) (test 7.3 ng/mL 10.0-20.0 L code = 657) BASIC METABOLIC [id number] 07:58:00 Test Item Value Reference Range Interpretation [...] 697) EGFR (BEAKER) (test 13 mL/min/1.73 ESTIMA JUAN GFR IS code = 1092) sq m NOT ACCURATE CREATININE CLEARANCE IN PREDICTING GLOMERULAR FILTRATION RATE . ESTIMATED GFR I S NOT APPLICABLE FOR DIALYSIS PATIEN TS. HEPATIC FUNCTION [id number] 07:37:00 Test Item Value Reference Range Interpretation [...] 6-55 347) CBC W/PLT COUNT & AUTO [id number] 06:02:00 Test Item Value Reference Range Interpretation [...] PERCENT (BEAKER) (test code = 2801) POCT-GLUCOSE [id number] 21:57:00 Test Item Value Reference Range Interpretation Comments POC-GLUCOSE METER 156 mg/dL 70-110 H TESTED AT [facility] 6720 (BEAKER) (test code = BRENDA Santiago [facility] 1538) [address] POCT-GLUCOSE [id number] 17:25:00 Test Item Value Reference Range Interpretation Comments POC-GLUCOSE METER 111 mg/dL 70-110 H TESTED AT [facility] 6720 (BEAKER) (test code = [facility] [place] 1538) [address] BODY FLUID CULTURE + GRAM [id number] 15:07:00 Test Item Value Reference Range Interpretation Comments CULTURE (BEAKER) (test code No growth = 1095) GRAM STAIN RESULT (BEAKER) <1+ WBCs (test code = 1123) GRAM STAIN RESULT (BEAKER) No organisms seen (test code = 77157) POCT-GLUCOSE [id number] 12:46:00 Test Item Value Reference Range Interpretation Comments POC-GLUCOSE METER 87 mg/dL 70-110 TESTED AT [facility] 6720 (BEAKER) (test code = [place] [address] 1538) TACROLIMUS [id number] 11:03:00 Test Item Value Reference Range Interpretation Comments TACROLIMUS BLOOD (BEAKER) (test 10.0 ng/mL 10.0-20.0 code = 657) POCT-GLUCOSE [id number] 08:16:00 Test Item Value Reference Range Interpretation Comments POC-GLUCOSE METER 126 mg/dL 70-110 H TESTED AT [facility] 6720 (BEAKER) (test code = BR[place] 1538) [address] BASIC METABOLIC [id number] 06:40:00 Test Item Value Reference Range Interpretation [...] 697) EGFR (BEAKER) (test 13 mL/min/1.73 ESTIMA JUAN GFR IS code = 1092) sq m NOT ACCURATE CREATININE CLEARANCE IN PREDICTING GLOMERULAR FILTRATION RATE . ESTIMATED GFR I S NOT APPLICABLE FOR DIALYSIS PATIEN TS. HEPATIC FUNCTION [id number] 06:33:00 Test Item Value Reference Range Interpretation [...] 6-55 347) CBC W/PLT COUNT & AUTO [id number] 05:51:00 Test Item Value Reference Range Interpretation [...] IMMATURE GRANULOCYTES-RELATIVE 2 % 0-1 H PERCENT (AKER) (test code = 2801) POCT-GLUCOSE [id number] 21:41:00 Test Item Value Reference Range Interpretation Comments POC-GLUCOSE METER 135 mg/dL 70-110 H TESTED AT [place] [address] ([facility]) (test code = [facility] 1538) [address] [id number] 20:16:00 Test Item Value Reference Range Interpretation Comments FERRITIN ([facility]) (test code = 361) 73 ng/mL 5-275 POCT-GLUCOSE [id number] 18:07:00 Test Item Value Reference Range Interpretation Comments POC-GLUCOSE METER 158 mg/dL 70-110 H TESTED AT [place] [address] ([facility]) (test code = [facility] 1538) [address] RETICULOCYTE [id number] 14:40:00 Test Item Value Reference Range Interpretation Comments RETICULOCYTE COUNT PCT ([facility]) (test 3.7 % 0.5-1.7 H code = 575) HEPATITIS B CORE ANTIBODY, [id number] 14:27:00 Test Item Value Reference Range Interpretation Comments HEPATITIS B CORE TOTAL ANTIBODY Nonreactive Nonreactive ([facility]) (test code = 497) TSH/FREE T4 IF [id number] 14:27:00 Test Item Value Reference Range Interpretation Comments THYROID STIMULATING HORMONE 1.44 uIU/mL 0.35-4.94 (AKER) (test code = 772) [id number] 14:20:00 Test Item Value Reference Range Interpretation Comments PROTIME (BEAKER) (test code = 14.7 seconds 11.9-14.2 H 759) INR ([facility]) (test code = 370) 1.2 <=5.9 PARTIAL THROMBOPLASTIN TIME 35.3 seconds 22.5-36.0 (BEAKER) (test code = 760) Effective 08/20/2018: PT Reference Range ChangeNew: 11.9-14.2 Previous: 11.7- 14.7RECOMMENDED COUMADIN/WARFARIN INR THERAPY RANGESSTANDARD DOSE: 2.0-3.0 Includes: PROPHYLAXIS for venous thrombosis, systemic embolization; TREATMENT for venous thrombosis and/or pulmonary embolus.HIGH RISK: Target INR is2.5-3.5 for patients wiht mechanical heart valves.PTH, [id number] 14:07:00 Test Item Value Reference Range Interpretation [...] 20-55 L (test code = 2590) TACROLIMUS [id number] 13:41:00 Test Item Value Reference Range Interpretation Comments TACROLIMUS BLOOD (BEAKER) (test 7.2 ng/mL 10.0-20.0 L code = 657) POCT-GLUCOSE [id number] 11:43:00 Test Item Value Reference Range Interpretation Comments POC-GLUCOSE METER 191 mg/dL 70-110 H TESTED AT [place] [address] ([facility]) (test code = BRENDA Santiago [facility] 1538) [address] POCT-GLUCOSE [id number] 08:45:00 Test Item Value Reference Range Interpretation Comments POC-GLUCOSE METER 119 mg/dL 70-110 H TESTED AT [facility] 6720 ([facility]) (test code = [facility] Jack [facility] 1538) [address] BASIC METABOLIC [id number] 07:28:00 Test Item Value Reference Range Interpretation [...] 697) EGFR (BEAKER) (test 13 mL/min/1.73 ESTIMA JUAN GFR IS code = 1092) sq m NOT ACCURATE CREATININE CLEARANCE IN PREDICTING GLOMERULAR FILTRATION RATE . ESTIMATED GFR I S NOT APPLICABLE FOR DIALYSIS PATIEN TS. HEPATIC FUNCTION [id number] 07:26:00 Test Item Value Reference Range Interpretation [...] 347) hemolyzed CBC W/PLT COUNT & AUTO [id number] 06:31:00 Test Item Value Reference Range Interpretation [...] PERCENT (BEAKER) (test code = 2801) POCT-GLUCOSE [id number] 22:37:00 Test Item Value Reference Range Interpretation Comments POC-GLUCOSE METER 144 mg/dL 70-110 H TESTED AT [facility] 6720 (BEAKER) (test code = BRENDA [place] 1538) [address] POCT-GLUCOSE [id number] 16:48:00 Test Item Value Reference Range Interpretation Comments POC-GLUCOSE METER 207 mg/dL 70-110 H TESTED AT [facility] 6720 (BEAKER) (test code = BRENDA Santiago [facility] 1538) [address] POCT-GLUCOSE [id number] 12:16:00 Test Item Value Reference Range Interpretation Comments POC-GLUCOSE METER 191 mg/dL 70-110 H TESTED AT [facility] 6720 (BEAKER) (test code = BRENDA Santiago [facility] 1538) [address] TACROLIMUS [id number] 11:23:00 Test Item Value Reference Range Interpretation Comments TACROLIMUS BLOOD (BEAKER) (test 5.7 ng/mL 10.0-20.0 L code = 657) BASIC METABOLIC [id number] 06:24:00 Test Item Value Reference Range Interpretation [...] 697) EGFR (BEAKER) (test 12 mL/min/1.73 ESTIMA JUAN GFR IS code = 1092) sq m NOT ACCURATE CREATININE CLEARANCE IN PREDICTING GLOMERULAR FILTRATION RATE . ESTIMATED GFR I S NOT APPLICABLE FOR DIALYSIS PATIEN TS. HEPATIC FUNCTION [id number] 06:22:00 Test Item Value Reference Range Interpretation [...] code = 11 U/L 6-55 347) POCT-GLUCOSE [id number] 22:19:00 Test Item Value Reference Range Interpretation Comments POC-GLUCOSE METER 195 mg/dL 70-110 H TESTED AT [facility] 6720 (BEAKER) (test code = [place] 1538) [address] BODY FLUID CELL COUNT WITH [id number] 21:04:00 Test Item Value Reference Range Interpretation [...] Tube (test code = 2873) PH, BODY [id number] 19:43:00 Test Item Value Reference Range Interpretation Comments PH, BODY FLUID (BEAKER) (test code = 7.80 1530) LACTATE DEHYDROGENASE (LDH), BODY [id number] 19:41:00 Test Item Value Reference Range Interpretation [...] validated for this type of specimen.PROTEIN, BODY [id number] 19:31:00 Test Item Value Reference Range Interpretation Comments PROTEIN FLUID (BEAKER) 2.5 g/dL Light's criteria identifies (test code = 579) effusions if one or more are pre Absence of reference range indicates that normals have not been defined.Assay performance has not been validated for this type of specimen.RAD, CHEST, 1 VIEW, NON [id number] 19:14:00Reason for exam:->post right sided thoracentesisShould this [...] mass lesion cannot be excluded. Signed: Yann Steele MDReport Verified Date/Time: 09/04/2018 19:14:07 Reading Location: [address] Reading Room HEPATIC FUNCTION [id number] 13:48:00 Test Item Value Reference Range Interpretation [...] code = 12 U/L 6-55 347) POCT-GLUCOSE [id number] 12:07:00 Test Item Value Reference Range Interpretation Comments POC-GLUCOSE METER 171 mg/dL 70-110 H TESTED AT [facility] 67 ([facility]) (test code = BRENDA Santiago [facility] 1538) [address] RAD, CHEST, 1 VIEW, NON [id number] 09:39:00Reason for exam:->assess lung volumesShould this be [...] and mild bilateral pleural effusions. Signed: Alfredo Peoples Verified Date/Time: 09/04/2018 09:39:09 Reading Location: [facility] Radiology Reading Room POCT-GLUCOSE [id number] 09:09:00 Test Item Value Reference Range Interpretation Comments POC-GLUCOSE METER 211 mg/dL 70-110 H TESTED AT [facility] 6720 ([facility]) (test code = BRENDA Santiago [place] 1538) [address] TACROLIMUS [id number] 09:06:00 Test Item Value Reference Range Interpretation Comments TACROLIMUS BLOOD (BEAKER) (test 13.6 ng/mL 10.0-20.0 code = 657) BASIC METABOLIC [id number] 06:49:00 Test Item Value Reference Range Interpretation [...] 697) EGFR (BEAKER) (test 12 mL/min/1.73 ESTIMA JUAN GFR IS code = 1092) sq m NOT ACCURATE CREATININE CLEARANCE IN PREDICTING GLOMERULAR FILTRATION RATE . ESTIMATED GFR I S NOT APPLICABLE FOR DIALYSIS PATIEN TS. PROTHROMBIN [id number] 06:23:00 Test Item Value Reference Range Interpretation [...] mechanical heart valves.CBC W/PLT COUNT & AUTO [id number] 06:16:00 Test Item Value Reference Range Interpretation [...] 0-1 H PERCENT (BEAKER) (test code = 2805) POCT-GLUCOSE [id number] 01:17:00 Test Item Value Reference Range Interpretation Comments POC-GLUCOSE METER 172 mg/dL 70-110 H TESTED AT [facility] 6720 (BEAKER) (test code = [place] 1538) [address] URINE IMMUNOFIXATION, [id number] 16:27:00 Test Item Value Reference Range Interpretation Comments PROTEIN, URINE 240 mg/dL 0-14 H (BEAKER) (test code = 1569) ALBUMIN URINE ELP 59.2 % (BEAKER) (test code = 1018) GAMMA GLOBULIN 40.8 % URINE (BEAKER) (test code = 1015) URINE TOMA ID-402 Urine immunofixation ([facility]) (test code electrophoresis reveals no = 2602) monoclonal proteins or free light chains. [id number] Ian Morin M.D. 2 ([facility]) (test (electonic signature) code = 2603) IMMUNOFIXATION [...] 1814) proteins detected. Polyclonal distribution of immunoglobulins. [id number] Ian Morin M.D. ([facility]) (test code = (electonic signature) 2948) BODY FLUID CULTURE + GRAM [id number] 15:47:00 Test Item Value Reference Range Interpretation Comments CULTURE (BEAKER) (test code No growth = 1095) GRAM STAIN RESULT (BEAKER) <1+ WBCs (test code = 1123) GRAM STAIN RESULT (BEAKER) No organisms seen (test code = 17599) POCT-GLUCOSE [id number] 12:14:00 Test Item Value Reference Range Interpretation Comments POC-GLUCOSE METER 210 mg/dL 70-110 H TESTED AT [facility] 6720 ([facility]) (test code = BRENDA [place] 1538) [address] [id number] 12:01:00 Test Item Value Reference Range Interpretation Comments POTASSIUM (BEAKER) (test code = 5.2 meq/L 3.5-5.1 H 379) TACROLIMUS [id number] 11:52:00 Test Item Value Reference Range Interpretation Comments [facility]OLIMUS BLOOD [facility] (test 6.4 ng/mL 10.0-20.0 L code = 657) Please draw 30 min prior to AM dose. Thanks!POCT-GLUCOSE [id number] 08:13:00 Test Item Value Reference Range Interpretation Comments POC-GLUCOSE METER 143 mg/dL 70-110 H TESTED AT [facility] 6720 (BEAKER) (test code = [place] 1538) [address] CREATININE [id number] 07:26:00 Test Item Value Reference Range Interpretation Comments CREATININE CLEARANCE (BEAKER) 10.9 mL/min 70.0-140.0 L (test code = 357) VOLUME, TOTAL (BEAKER) (test code 800 ml = 1457) CREATININE URINE (BEAKER) (test 76.9 mg/dL code = 375) PATIENT HEIGHT (CM) (BEAKER) 167.0 cm (test code = 2799) PATIENT WEIGHT (KG) (BEAKER) 95.300 kg (test code = 2800) PROTEIN, 24 HOUR [id number] 07:26:00 Test Item Value Reference Range Interpretation Comments PROTEIN, 24HR URINE (BEAKER) 2000 mg/24hr 0-300 H (test code = 1570) VOLUME, TOTAL (BEAKER) (test 800 ml code = 1457) PROTEIN, URINE (BEAKER) (test 250 mg/dL 0-14 H code = 1569) COMPREHENSIVE METABOLIC [id number] 07:17:00 Test Item Value Reference Range Interpretation [...] 347) EGFR (BEAKER) (test 14 mL/min/1.73 ESTIMA JUAN GFR IS code = 1092) sq m [...] Value Reference Range Interpretation Comments ANTI-NUCLEAR ANTIBODY (WODOY) (BEAKER) Negative Negative (test code = 418) Test performed by IFA method.Test performed by IFA method.POCT-GLUCOSE METER 2018-08-22 21:18:00 Test Item Value Reference Range Interpretation Comments POC-GLUCOSE METER 231 mg/dL 70-110 H TESTED AT [facility] 6720 ([facility]) (test code = [place] 1538) [address] URINE PROTEIN ELECTROPHORESIS, [id number] 18:38:00 Test Item Value Reference Range Interpretation Comments PROTEIN, URINE 240 mg/dL 0-14 H ([facility]) (test code = 1569) ALBUMIN URINE ELP 59.2 % ([facility]) (test code = 1018) GAMMA GLOBULIN URINE 40.8 % ([facility]) (test code = 1015) UPEP, ID-438 Urine protein study ([facility]) (test code consistent with = 2604) glomerular dysfunction. There is a possible band present within the gamma region. Refer to serum immunofixation electrophoresis. [id number] Karie Butcher MD ([facility]) (test code (electronic signature) = 2605) [id number] 17:59:00Medical Cytology Report Case: [id number] Authorizing Provider: Celestino Bailey MD Collected: 08/21/2018 1557 Ordering Location: [address] Received: 08/22/2018 0854 Pathologist: Mariano Cutler MD Specimen: Pleural, Right RIGHT PLEURAL FLUID (CYTOSPINS): - NO MALIGNANT CELLS IDENTIFIED (SEE COMMENT) - REACTIVE MESOTHELIAL CELLS WITH CHRONIC INFLAMMATION Signing Pathologist Direct Phone Line: [phone] signed by Mariano Cutler MD on 08/22/2018 at 5:59 PMOnly a small amount of fluid was received for cytology evaluation. If clinically discordant, repeat thoracentesis with larger amount of fluid sent for cytologyevaluation may be considered. 178[address]Tzleo pleural effusion, history of hepatocellular cancerRIGHT PLEURAL FLUID5 mls cuca; 4 cytospinsCollected: [id number]: [id number]nt Rehabilitation and [facility], Department of Pathology, [address] [place] [address], [facility] [place] [address], [facility], Department of Pathology, [address] [place] [address], [facility], Department of [facility]ology, [address] [place] [address], QCKJ-GLUCOSE [id number] 17:07:00 Test Item Value Reference Range Interpretation Comments POC-GLUCOSE METER 174 mg/dL 70-110 H TESTED AT [place] [address] ([facility]) (test code = BRENDA Santiago [facility] 1538) [address] PROTEIN ELECTROPHORESIS, [id number] 15:51:00 Test Item Value Reference Range Interpretation [...] region. Please refer to serum immunofixation electrophoresis. [id number] Karie Butcher MD ([facility]) (test code (electronic signature) = 2616) PROTEIN TOTAL SERUM, 6.2 gm/dL 6.0-8.3 SPEP (BEAKER) (test code = 2660) RHEUMATOID FACTOR AB, REFLEX TO [id number] 12:56:00 Test Item Value Reference Range Interpretation Comments RHEUMATOID FACTOR (AKER) (test Negative code = 573) [id number] 12:47:00 Test Item Value Reference Range Interpretation Comments RPR SCREEN ([facility]) (test code = Nonreactive Nonreactive 420) POCT-GLUCOSE [id number] 12:30:00 Test Item Value Reference Range Interpretation Comments POC-GLUCOSE METER 200 mg/dL 70-110 H TESTED AT [place] [id number] ([facility] (test code = BRENDA Santiago [facility] 1538) [address] OSMOLALITY, [id number] 11:29:00 Test Item Value Reference Range Interpretation Comments OSMOLALITY URINE (BEAKER) (test 300 mOsm/kg 40-1,400 code = 614) OSMOLALITY, [id number] 10:58:00 Test Item Value Reference Range Interpretation Comments OSMOLALITY, SERUM (BEAKER) (test 307 mOsm/kg 280-303 H code = 615) TACROLIMUS [id number] 09:13:00 Test Item Value Reference Range Interpretation Comments TACROLIMUS BLOOD (BEAKER) (test 8.5 ng/mL 10.0-20.0 L code = 657) Please draw 30 min prior to AM dose. Thanks!POCT-GLUCOSE [id number] 09:01:00 Test Item Value Reference Range Interpretation Comments POC-GLUCOSE METER 156 mg/dL 70-110 H TESTED AT [place] [address] ([facility]) (test code = [facility] Jack [facility] 1538) [address] HEPATITIS PANEL, [id number] 07:30:00 Test Item Value Reference Range Interpretation Comments HEPATITIS A IGM ANTIBODY (BEAKER) Nonreactive Nonreactive (test code = 498) HEPATITIS B CORE IGM ANTIBODY Nonreactive Nonreactive (BEAKER) (test code = 645) HEPATITIS C ANTIBODY (BEAKER) Reactive Nonreactive A (test code = 367) HEPATITIS B SURFACE ANTIGEN (2) Nonreactive Nonreactive (BEAKER) (test code = 2585) COMPREHENSIVE METABOLIC [id number] 06:31:00 Test Item Value Reference Range Interpretation [...] 347) EGFR (BEAKER) (test 13 mL/min/1.73 ESTIMA JUAN GFR IS code = 1092) sq m [...] code = 413) HEPATITIS B CORE ANTIBODY, [id number] 22:36:00 Test Item Value Reference Range Interpretation Comments HEPATITIS B CORE TOTAL ANTIBODY Nonreactive Nonreactive ([facility]) (test code = 497) HIV-1 ANTIGEN WITH HIV-1/2 [id number] 22:36:00 Test Item Value Reference Range Interpretation Comments HIV-1 ANTIGEN WITH HIV 1\\T\\2 Nonreactive Nonreactive ANTIBODY (2) ([facility]) (test code = 2586) COMPLEMENT COMPONENT [id number] 22:13:00 Test Item Value Reference Range Interpretation Comments C4 COMPLEMENT (TIAN) (test code = 21 mg/dL 15-57 394) COMPLEMENT COMPONENT [id number] 22:13:00 Test Item Value Reference Range Interpretation Comments C3 COMPLEMENT ([facility]) (test code = 81 mg/dL 82-193 L 393) [id number] 22:11:00 Test Item Value Reference Range Interpretation Comments CREATININE ([facility]) 3.45 mg/dL 0.57-1.25 H (test code = 358) EGFR ([facility]) (test 13 mL/min/1.73 ESTIMA JUAN GFR IS code = 1092) sq m NOT ACCURATE CREATININE CLEARANCE IN PREDICTING GLOMERULAR FILTRATION RATE . ESTIMATED GFR I S NOT APPLICABLE FOR DIALYSIS PATIEN TS. POCT-GLUCOSE [id number] 21:35:00 Test Item Value Reference Range Interpretation Comments POC-GLUCOSE METER 244 mg/dL 70-110 H TESTED AT [facility] 6720 ([facility]) (test code = BR[place] 1538) [address] EOSINOPHIL SMEAR, [id number] 20:09:00 Test Item Value Reference Range Interpretation Comments EOSINOPHIL SMEAR, URINE ([facility]) No EOS seen No EOS seen (test code = 1851) Many bacteria seen on stained smears.PROTEIN, RANDOM [id number] 19:59:00 Test Item Value Reference Range Interpretation Comments PROTEIN, URINE ([facility]) (test code 265 mg/dL 0-14 H = 1569) PTH, [id number] 19:43:00 Test Item Value Reference Range Interpretation Comments PARATHYROID HORMONE INTACT 330.9 pg/mL 8.5-72.5 H ([facility]) (test code = 577) URIC [id number] 19:36:00 Test Item Value Reference Range Interpretation Comments URIC ACID (BEAKER) (test code = 7.6 mg/dL 2.6-7.2 H 773) CHLORIDE, RANDOM [id number] 19:36:00 Test Item Value Reference Range Interpretation Comments CHLORIDE URINE (BEAKER) (test code = 29 meq/L 682) Reference Range: No NormalsCREATININE, RANDOM [id number] 19:36:00 Test Item Value Reference Range Interpretation Comments CREATININE URINE (BEAKER) (test 84.6 mg/dL code = 375) Reference Range: No NormalsPOTASSIUM, RANDOM [id number] 19:36:00 Test Item Value Reference Range Interpretation Comments POTASSIUM URINE (BEAKER) (test 14.7 meq/L code = 195) Reference Range: No NormalsSODIUM, RANDOM [id number] 19:36:00 Test Item Value Reference Range Interpretation Comments SODIUM URINE (BEAKER) (test code = 48 meq/L 243) Reference Range: No NormalsBODY FLUID CELL COUNT WITH [id number] 18:20:00 Test Item Value Reference Range Interpretation [...] code = 2873) LACTATE DEHYDROGENASE (LDH), BODY [id number] 17:26:00 Test Item Value Reference Range Interpretation Comments LACTATE DEHYDROGENASE FLUID < U/L Light's criteria (BEAKER) (test code = 634) identifies effusions if one or more are pre Absence of reference range indicates that normals have not been defined.Assay performance has not been validated for this type of specimen.PROTEIN, BODY FLUID 2018-08-21 17:26:00 Test Item Value Reference Range Interpretation Comments PROTEIN FLUID ([facility]) 2.4 g/dL Light's criteria identifies (test code = 579) effusions if one or more are pre Absence of reference range indicates that normals have not been defined.Assay performance has not been validated for this type of specimen.POCT-GLUCOSE METER 2018-08-21 17:08:00 Test Item Value Reference Range Interpretation Comments POC-GLUCOSE METER 148 mg/dL 70-110 H TESTED AT [facility] 67 ([facility]) (test code = BRENDA Santiago [facility] 1538) [address] RAD, CHEST, 1 VIEW, NON [id number] 16:17:00Reason for exam:->s/p right thoracentesisShould this be [...] Rodriguezeport Verified Date/Time: 08/21/2018 16:17:23 Reading Location: [facility] Radiology Reading Room -GLUCOSE [id number] 12:51:00 Test Item Value Reference Range Interpretation Comments POC-GLUCOSE METER 133 mg/dL 70-110 H TESTED AT [facility] 6720 ([facility]) (test code = BRENDA Santiago [facility] 1538) [address] TACROLIMUS [id number] 10:14:00 Test Item Value Reference Range Interpretation Comments TACROLIMUS BLOOD ([facility]) (test 7.6 ng/mL 10.0-20.0 L code = 657) Please draw 30 min prior to AM dose. Thanks!POCT-GLUCOSE [id number] 09:34:00 Test Item Value Reference Range Interpretation Comments POC-GLUCOSE METER 108 mg/dL 70-110 TESTED AT [facility] 6720 (BEAKER) (test code = BRENDA Santiago [facility] 1538) [address] POCT-GLUCOSE [id number] 08:41:00 Test Item Value Reference Range Interpretation Comments POC-GLUCOSE METER 45 mg/dL 70-110 L TESTED AT [facility] 6720 (BEAKER) (test code = BRENDA Santiago [facility] [address] 1538) POCT-GLUCOSE [id number] 08:22:00 Test Item Value Reference Range Interpretation Comments POC-GLUCOSE METER 37 mg/dL 70-110 LL TESTED AT [facility] 6720 (BEAKER) (test code = BRENDA Santiago [facility] [address] 1538) COMPREHENSIVE METABOLIC [id number] 06:29:00 Test Item Value Reference Range Interpretation [...] 347) EGFR (BEAKER) (test 15 mL/min/1.73 ESTIMA JUAN GFR IS code = 1092) sq m NOT ACCURATE CREATININE CLEARANCE IN PREDICTING GLOMERULAR FILTRATION RATE . ESTIMATED GFR I S NOT APPLICABLE FOR DIALYSIS PATIEN TS. [id number] 06:18:00 Test Item Value Reference Range Interpretation [...] 0-0 (BEAKER) (test code = 413) POCT-GLUCOSE [id number] 21:32:00 Test Item Value Reference Range Interpretation Comments POC-GLUCOSE METER 197 mg/dL 70-110 H TESTED AT [facility] 6720 (BEAKER) (test code = BRENDA MURRAY 1538) [address] PH, BODY [id number] 19:33:00 Test Item Value Reference Range Interpretation Comments PH, BODY FLUID (BEAKER) (test code = 7.75 1530) ALBUMIN, BODY [id number] 19:29:00 Test Item Value Reference Range Interpretation Comments ALBUMIN FLUID (BEAKER) (test code = 1.5 gm/dL 501) Reference Range: No Normals Assay performance has not been validated for this type of specimen.BODY FLUID CELL COUNT WITH [id number] 19:26:00 Test Item Value Reference Range Interpretation [...] code = 2873) LACTATE DEHYDROGENASE (LDH), BODY [id number] 19:22:00 Test Item Value Reference Range Interpretation [...] validated for this type of specimen.TRIGLYCERIDES, BODY [id number] 19:22:00 Test Item Value Reference Range Interpretation Comments TRIGLYCERIDES FLUID (BEAKER) (test 32 mg/dL code = 539) Reference Range: No Normals Assay performance has not been validated for this type of specimen.RAD, CHEST, 1 VIEW, NON [id number] 19:16:00Reason for exam:->left thoracentesisShould this be performed at the bedside?->Yes FINAL REPORT Chest, 1 view Clinical history: left thoracentesis Comparison: 08/18/2018 Discussion: Status post left thoracentesis without pneumothorax. Interval decrease in left pleural effusion. Again seen is a layering right pleural effusion. The cardiac silhouette is enlargedwith perihilar pulmonary edema. No acute osseous abnormality is seen. Signed: Bud Wong MDReport Verified Date/Time: 08/20/2018 19:16:27 Reading Location: [facility] C013X Ortho Consult Reading Room U/S, [id number] 18:21:00Laterality?- >LeftReason for exam:->pleural effusionFINAL REPORT PROCEDURE: Ultrasound-guided thoracentesis INDICATION: 63-year-old woman with left pleural effusion. DESCRIPTION: After obtaining informed written consent, ultrasound scan showed pleural effusion on the left. The overlying skin was prepped and draped in the usual, sterile fashion and local 2% lidocaine anesthesia was administered. A 4 Guatemalan catheter was advanced into the pleural cavity and 1200 cc of serous fluid was removed. The catheter was removed without immediate complication. Samples were sent for analysis. IMPRESSION:Uncomplicated ultrasound-guided left thoracentesis with 1200 cc fluid removed. Signed: Niad Sauceda MDReport Verified Date/Time: 08/20/2018 18:21:53 Reading Location: [facility] P006J Ultrasound Reading Room POCT-GLUCOSE [id number] 11:46:00 Test Item Value Reference Range Interpretation Comments POC-GLUCOSE METER 173 mg/dL 70-110 H TESTED AT [facility] 6720 ([facility]) (test code = [place] 1538) [address] [id number] 10:26:00 Test Item Value Reference Range Interpretation Comments PROTIME (Oink) (test code = 14.1 seconds 11.9-14.2 759) [...] is2.5-3.5 for patients wiht mechanical heart valves.TACROLIMUS [id number] 10:20:00 Test Item Value Reference Range Interpretation Comments TACROLIMUS BLOOD (BEAKER) (test 7.2 ng/mL 10.0-20.0 L code = 657) Please draw 30 min prior to AM dose. Thanks!POCT-GLUCOSE [id number] 08:05:00 Test Item Value Reference Range Interpretation Comments POC-GLUCOSE METER 64 mg/dL 70-110 L TESTED AT [facility] 6720 ([facility]) (test code = BRENDA Santiago [facility] [address] 1538) CBC W/PLT COUNT & AUTO [id number] 07:03:00 Test Item Value Reference Range Interpretation [...] (BEAKER) (test code = 2801) BASIC METABOLIC [id number] 06:57:00 Test Item Value Reference Range Interpretation [...] 697) EGFR (BEAKER) (test 17 mL/min/1.73 ESTIMA JUAN GFR IS code = 1092) sq m NOT ACCURATE CREATININE CLEARANCE IN PREDICTING GLOMERULAR FILTRATION RATE . ESTIMATED GFR I S NOT APPLICABLE FOR DIALYSIS PATIEN TS. [id number] 06:44:00 Test Item Value Reference Range Interpretation Comments MAGNESIUM ([facility]) (test code = 2.5 mg/dL 1.6-2.6 627) POCT-GLUCOSE [id number] 22:17:00 Test Item Value Reference Range Interpretation Comments POC-GLUCOSE METER 131 mg/dL 70-110 H TESTED AT [facility] 6720 ([facility]) (test code = [facility] Adiana [facility] 1538) [address] POCT-GLUCOSE [id number] 16:56:00 Test Item Value Reference Range Interpretation Comments POC-GLUCOSE METER 124 mg/dL 70-110 H TESTED AT [place] [address] ([facility]) (test code = [facility] Adiana [facility] 1538) [address] POCT-GLUCOSE [id number] 13:01:00 Test Item Value Reference Range Interpretation Comments POC-GLUCOSE METER 101 mg/dL 70-110 TESTED AT [facility] 67 ([facility]) (test code = [facility] Adiana [facility] 1538) [address] TACROLIMUS [id number] 08:59:00 Test Item Value Reference Range Interpretation Comments TACROLIMUS BLOOD ([facility]) (test 5.4 ng/mL 10.0-20.0 L code = 657) Please draw 30 min prior to AM dose. Thanks!POCT-GLUCOSE [id number] 08:57:00 Test Item Value Reference Range Interpretation Comments POC-GLUCOSE METER 125 mg/dL 70-110 H TESTED AT [facility] 6720 ([facility]) (test code = [facility] [place] 1538) [address] POCT-GLUCOSE [id number] 08:30:00 Test Item Value Reference Range Interpretation Comments POC-GLUCOSE METER 48 mg/dL 70-110 L TESTED AT [place] [address] ([facility]) (test code = [facility] Adiana [facility] [address] 1538) COMPREHENSIVE METABOLIC [id number] 06:46:00 Test Item Value Reference Range Interpretation Comments TOTAL PROTEIN 6.8 gm/dL 6.0-8.3 ([facility]) (test code = 770) ALBUMIN (BEAKER) 3.1 [...] 347) EGFR (BEAKER) (test 17 mL/min/1.73 ESTIMA JUAN GFR IS code = 1092) sq m [...] (BEAKER) (test code = 413) U/S, ABDOMINAL, [id number] 03:23:00Abdomen limited area? Add comment if clarification [...] volume right pleural effusion. Signed: Aminata Fuentes MDReport Verified Date/Time:08/19/2018 03:23:10 Reading Location: [address] Reading Room POCT-GLUCOSE [id number] 22:31:00 Test Item Value Reference Range Interpretation Comments POC-GLUCOSE METER 123 mg/dL 70-110 H TESTED AT [place] [address] ([facility]) (test code = BRENDA Santiago [facility] 1538) [address] POCT-GLUCOSE [id number] 18:04:00 Test Item Value Reference Range Interpretation Comments POC-GLUCOSE METER 138 mg/dL 70-110 H TESTED AT [place] [address] ([facility]) (test code = BRENDA Santiago [facility] 1538) [address] RAD, CHEST, 2 [id number] 13:39:00Reason for exam:->bilateral effusions, dyspneaFINAL REPORT INDICATION: [...] Vinay, Diandra Davis Verified Date/Time: 08/18/2018 13:39:03 Iona morales Location: [address] Neuro Reading Room POCT-GLUCOSE [id number] 12:06:00 Test Item Value Reference Range Interpretation Comments POC-GLUCOSE METER 116 mg/dL 70-110 H TESTED AT [place] [address] ([facility]) (test code = BRENDA Santiago [facility] 1538) [address] TACROLIMUS [id number] 09:28:00 Test Item Value Reference Range Interpretation Comments TACROLIMUS BLOOD ([facility]) (test 5.1 ng/mL 10.0-20.0 L code = 657) Please draw 30 min prior to AM dose. Thanks!HEMOGLOBIN [id number] 08:28:00 Test Item Value Reference Range Interpretation Comments HEMOGLOBIN A1C ([facility]) (test code = 5.5 % 4.3-6.1 368) POCT-GLUCOSE [id number] 08:07:00 Test Item Value Reference Range Interpretation Comments POC-GLUCOSE METER 111 mg/dL 70-110 H TESTED AT [facility] 6720 (BEAKER) (test code = [place] 1538) [address] COMPREHENSIVE METABOLIC [id number] 07:18:00 Test Item Value Reference Range Interpretation [...] 347) EGFR (BEAKER) (test 17 mL/min/1.73 ESTIMA JUAN GFR IS code = 1092) sq m [...] 0-0 (BEAKER) (test code = 413) POCT-GLUCOSE [id number] 17:32:00 Test Item Value Reference Range Interpretation Comments POC-GLUCOSE METER 91 mg/dL 70-110 TESTED AT [facility] 6720 ([facility]) (test code = BRENDA Santiago [facility] [address] 1538) CT, CHEST, WITHOUT [id number] 16:51:00FINAL REPORT INDICATION: Shortness of breath. COMPARISON:None. [...] IMPRESSION: Bilateral moderate pleural effusions. Signed: Conor Bañuelos MDReport Verified Date/Time: 08/17/2018 16:51:05 Reading Location: [facility] C013Y CT Body Reading Room -GLUCOSE [id number] 16:23:00 Test Item Value Reference Range Interpretation Comments POC-GLUCOSE METER 46 mg/dL 70-110 L TESTED AT [facility] 6720 (BEAKER) (test code = BRENDA Santiago [facility] [address] 1538) B-TYPE NATRIURETIC FACTOR (BNP)2018-08-17 15:08:00 Test Item Value Reference Range Interpretation Comments B-TYPE NATRIURETIC PEPTIDE (BEAKER) 549 pg/mL 0-100 H (test code = 700) URINALYSIS WITH MICROSCOPIC IF [id number] 14:47:00 Test Item Value Reference Range Interpretation [...] 463) SOURCE(BEAKER) (test code = 2795) URINALYSIS [id number] 14:47:00 Test Item Value Reference Range Interpretation Comments RBC UA (BEAKER) (test code = 519) < /HPF WBC UA (BEAKER) (test code = 520) 1 /HPF SQUAMOUS EPITHELIAL (BEAKER) (test 1 /HPF code = 516) POCT-GLUCOSE [id number] 12:28:00 Test Item Value Reference Range Interpretation Comments POC-GLUCOSE METER 75 mg/dL 70-110 TESTED AT [place] [address] ([facility]) (test code = BRENDA Santiago [facility] [address] 1538) TACROLIMUS [id number] 09:04:00 Test Item Value Reference Range Interpretation Comments TACROLIMUS BLOOD (BEAKER) (test 6.2 ng/mL 10.0-20.0 L code = 657) POCT-GLUCOSE [id number] 08:53:00 Test Item Value Reference Range Interpretation Comments POC-GLUCOSE METER 87 mg/dL 70-110 TESTED AT [place] [address] ([facility]) (test code = [facility] Jack [facility] [address] 1538) POCT-GLUCOSE [id number] 08:40:00 Test Item Value Reference Range Interpretation Comments POC-GLUCOSE METER 57 mg/dL 70-110 L TESTED AT [place] [address] ([facility]) (test code = [facility] [address] 1538) B-TYPE NATRIURETIC FACTOR (BNP)2018-08-17 06:16:00 Test Item Value Reference Range Interpretation Comments B-TYPE NATRIURETIC PEPTIDE (BEAKER) 513 pg/mL 0-100 H (test code = 700) COMPREHENSIVE METABOLIC [id number] 06:16:00 Test Item Value Reference Range Interpretation [...] 347) EGFR (BEAKER) (test 16 mL/min/1.73 ESTIMA JUAN GFR IS code = 1092) sq m NOT ACCURATE CREATININE CLEARANCE IN PREDICTING GLOMERULAR FILTRATION RATE . ESTIMATED GFR I S NOT APPLICABLE FOR DIALYSIS PATIEN TS. CBC W/PLT COUNT & AUTO [id number] 05:51:00 Test Item Value Reference Range Interpretation [...] PERCENT (BEAKER) (test code = 2801) POCT-GLUCOSE [id number] 02:09:00 Test Item Value Reference Range Interpretation Comments POC-GLUCOSE METER 85 mg/dL 70-110 TESTED AT [facility] 67 ([facility]) (test code = [facility] [address] 1538) HEPATITIS C PCR, [id number] 13:59:00 Test Item Value Reference Range Interpretation Comments HCV RESULT COMPONENT HCV RNA not detected HCV RNA not detected ([facility]) (test code = 2699) This test uses a Real-Time Polymerase Chain Reaction (RT-PCR) methodology and was performed using LAZ Ampliprep/LAZ TaqMan HCV test kit version 2.0 ([employer]).Reportable range for this assay is 15 - 100,000,000 IU per mL (1.18 - 8.00 Log IU/mL).TACROLIMUS [id number] 13:46:00 Test Item Value Reference Range Interpretation Comments TACROLIMUS BLOOD ([facility]) (test 9.6 ng/mL 10.0-20.0 L code = 657) ALPHA FETOPROTEIN (AFP), TUMOR [id number] 13:23:00 Test Item Value Reference Range Interpretation Comments ALPHA-FETOPROTEIN ([facility]) (test code < ng/mL <10.0 = 1094) Effective 02/09/2014: Reference Range ChangeNew: <10.0 Previous: 0.0-8.0 [id number] 13:04:00 Test Item Value Reference Range Interpretation Comments PHOSPHORUS (BEAKER) (test code = 4.5 mg/dL 2.3-4.7 604) [id number] 13:04:00 Test Item Value Reference Range Interpretation Comments MAGNESIUM (BEAKER) (test code = 2.3 mg/dL 1.6-2.6 627) COMPREHENSIVE METABOLIC [id number] 13:04:00 Test Item Value Reference Range Interpretation [...] 347) EGFR (BEAKER) (test 47 mL/min/1.73 ESTIMA JUAN GFR IS code = 1092) sq m NOT ACCURATE CREATININE CLEARANCE IN PREDICTING GLOMERULAR FILTRATION RATE . ESTIMATED GFR I S NOT APPLICABLE FOR DIALYSIS PATIEN TS. LIPID [id number] 13:04:00 Test Item Value Reference Range Interpretation [...] Borderline 130-159 High 160-189 Very High >=190BILIRUBIN, [id number] 13:04:00 Test Item Value Reference Range Interpretation Comments BILIRUBIN DIRECT (BEAKER) (test 0.2 mg/dL 0.1-0.5 code = 706) CBC W/PLT COUNT & AUTO [id number] 12:37:00 Test Item Value Reference Range Interpretation [...] L 0.00-0.20 (test code = 417) 0.00POCT-GLUCOSE [id number] 13:29:00 Test Item Value Reference Range Interpretation Comments POC-GLUCOSE METER 77 mg/dL 70-110 TESTED AT [place] [address] ([facility]) (test code = [facility] [address] 1538) POCT-GLUCOSE [id number] 13:28:00 Test Item Value Reference Range Interpretation Comments POC-GLUCOSE METER 100 mg/dL 70-110 TESTED AT [place] [address] ([facility]) (test code = [facility] 1538) [address] POCT-GLUCOSE [id number] 12:04:00 Test Item Value Reference Range Interpretation Comments POC-GLUCOSE METER 69 mg/dL 70-110 L TESTED AT [place] [address] ([facility]) (test code = [facility] [address] 1538) CREATINE KINASE (CK), TOTAL AND [id number] 09:47:00 Test Item Value Reference Range Interpretation Comments CREATINE KINASE TOTAL (BEAKER) 38 U/L 29-200 (test code = 380) CREATINE KINASE-MB (BEAKER) (test 1.1 ng/mL 0.0-6.6 code = 750) CREATINE KINASE-MB INDEX (BEAKER) 2.9 % (test code = 395) Effective 02/09/2014: CK-MB Reference Range ChangeNew: 0.0-6.6 Previous: 0.0-4.9CK-MB Reference Range:<6.7 Normal6.7-10.0 Borderline>10.0 AbnormalTACROLIMUS [id number] 09:04:00 Test Item Value Reference Range Interpretation Comments TACROLIMUS BLOOD (BEAKER) (test 9.5 ng/mL 10.0-20.0 L code = 657) TROPONIN [id number] 08:43:00 Test Item Value Reference Range Interpretation [...] acute neurological disease, and persistent tachyarrhythmia.HEPATIC FUNCTION [id number] 05:43:00 Test Item Value Reference Range Interpretation [...] = 10 U/L 6-55 347) BASIC METABOLIC [id number] 05:43:00 Test Item Value Reference Range Interpretation [...] 697) EGFR (BEAKER) (test 66 mL/min/1.73 ESTIMA JUAN GFR IS code = 1092) sq m NOT ACCURATE CREATININE CLEARANCE IN PREDICTING GLOMERULAR FILTRATION RATE . ESTIMATED GFR I S NOT APPLICABLE FOR DIALYSIS PATIEN TS. CBC W/PLT COUNT & AUTO [id number] 05:33:00 Test Item Value Reference Range Interpretation [...] L 0.00-0.20 (test code = 417) 0.00TROPONIN [id number] 22:47:00 Test Item Value Reference Range Interpretation Comments TROPONIN I (AKER) (test code = 397) < ng/mL 0.00-0.03 [...] acidosis, acute neurological disease, and persistent tachyarrhythmia.POCT-GLUCOSE [id number] 21:47:00 Test Item Value Reference Range Interpretation Comments POC-GLUCOSE METER 183 mg/dL 70-110 H TESTED AT [facility] 6720 ([facility]) (test code = [place] 1538) [address] CREATINE KINASE (CK), TOTAL AND [id number] 16:27:00 Test Item Value Reference Range Interpretation Comments CREATINE KINASE TOTAL ([facility]) 36 U/L 29-200 (test code = 380) CREATINE KINASE-MB ([facility]) (test 1.4 ng/mL 0.0-6.6 code = 750) CREATINE KINASE-MB INDEX ([facility]) 3.9 % (test code = 395) Effective 02/09/2014: CK-MB Reference Range ChangeNew: 0.0-6.6 Previous: 0.0-4.9CK-MB Reference Range:<6.7 Normal6.7-10.0 Borderline>10.0 AbnormalTROPONIN [id number] 16:27:00 Test Item Value Reference Range Interpretation Comments TROPONIN I ([facility]) (test code = 397) < ng/mL [...] acidosis, acute neurological disease, and persistent tachyarrhythmia.POCT-GLUCOSE [id number] 16:09:00 Test Item Value Reference Range Interpretation Comments POC-GLUCOSE METER 95 mg/dL 70-110 TESTED AT [facility] 6720 ([facility]) (test code = BRENDA Santiago [facility] [address] 1538)
[2020-11-29 16:17] LABS: Protime INR 1.39
[2020-11-29 16:18] LABS: Absolute Lymphocytes (CBC) 0.9 K/uL (0.7-4.9); Basophils % 0.7 % (0-1.3); Hematocrit 19.8 % (36.0-45.0); MPV 7.5 fL (7.6-11.3); RBC Red Blood Cell Count 2.39 M/uL (3.86-4.86)
[2020-11-29 16:46] LABS: Albumin 1.9 g/dL (3.4-5.0); Bilirubin Direct 0.3 mg/dL (0-0.2); Bilirubin Total 0.6 mg/dL (0.2-1.0); Potassium 3.3 mmol/L (3.5-5.1); Protein, Total 6.7 g/dL (6.4-8.2); Troponin (Emerg Dept Use Only) 0.03 ng/mL (0.0-0.045)
--- NOTE | 2020-11-29 16:48 | RAD REPORT ---
EXAM DESCRIPTION: RAD - Chest Single View - 11/29/2020 4:17 pm CLINICAL HISTORY: DYSPNEA COMPARISON: November 03 TECHNIQUE: AP portable chest image was obtained 11/29/2020 4:17 pm . FINDINGS: Lung volumes are low. Bibasilar interstitial and scattered alveolar opacities are present. Left hemidiaphragm elevation is present. Interstitial pattern is similar or slightly less prominent than the November 03 study. Trachea is midline. Heart size is prominent, partially obscured by the lung base findings. Pleural effusions are evident more so on the left. No pneumothorax seen. No acute bon y abnormality seen. No acute aortic findings suspected. IMPRESSION: Bilateral pleural and parenchymal opacification similar or slightly improved from November 03 imaging.
--- NOTE | 2020-11-29 17:12 | EDPHYS ---
Physician Documentation [facility] Name: Lisa Ko Age: 65 yrs Sex: Female : 1955 Arrival Date: 11/29/2020 Time: 15:09 Bed 7 Private MD: JAY Physician Gatito Chavez HPI: 11/29 17:05 This 65 yrs old Female presents to ER via EMS with complaints of Shortness Of jr8 Breath. 17:05 The patient has shortness of breath at rest. Onset: The symptoms/episode began/occurred jr8 gradually, 2 day(s) ago. Duration: The symptoms are continuous. The patient's shortness of breath is aggravated by light activity, walking. Associated signs and symptoms: Pertinent positives: Fatigue. Severity of symptoms: At their worst the symptoms were moderate in the emergency department the symptoms are unchanged. The patient has not experienced similar symptoms in the past. The patient has been recently seen by a physician:. This is a 65-year-old female patient that was brought to the emergency room via EMS for increased fatigue and shortness of breath. Patient had a recent stay at [facility] in the [facility] for large intestine perforation. [facility] a [facility] since then. Patient stated that she had noticed herself to become more short of breath over the last couple of days and fatigue. Denies any other complaints at this time.. Historical: - Allergies: 15:17 Codeine; ss 15:17 Levaquin (rash); ss - PMHx: 15:17 Diabetes - IDDM; Dialysis-M/W/F; HD; Hypertension; liver cancer; liver transplant; ss neuropathy; TIA; - Immunization history:: Adult Immunizations up to date. - Social history:: Smoking status: Patient denies any tobacco usage or history of. ROS: 17:05 Eyes: Negative for injury, pain, redness, and discharge, ENT: Negative for injury, jr8 pain, and discharge, Neck: Negative for injury, pain, and swelling, Cardiovascular: Negative for chest pain, palpitations, and edema, Abdomen/GI: Negative for abdominal pain, nausea, vomiting, diarrhea, and constipation, Back: Negative for injury and pain, MS/Extremity: Negative for injury and deformity, Skin: Negative for injury, rash, and discoloration, Neuro: Negative for headache, weakness, numbness, tingling, and seizure. 17:05 Constitutional: Positive for malaise, Fatigue. 17:05 Respiratory: Positive for shortness of breath. Exam: 17:05 Constitutional: This is a well developed, well nourished patient who is awake, alert, jr8 and in no acute distress. Eyes: Pupils equal round and reactive to light, extra-ocular motions intact. Lids and lashes normal. Conjunctiva and sclera are non-icteric and not injected. Cornea within normal limits. Periorbital areas with no swelling, redness, or edema. ENT: Nares patent. No nasal discharge, no septal abnormalities noted. Tympanic membranes are normal and external auditory canals are clear. Oropharynx with no redness, swelling, or masses, exudates, or evidence of obstruction, uvula midline. Mucous membranes moist. Neck: Trachea midline, no thyromegaly or masses palpated, and no cervical lymphadenopathy. Supple, full range of motion without nuchal rigidity, or vertebral point tenderness. No Meningismus. Cardiovascular: Regular rate and rhythm with a normal S1 and S2. No gallops, murmurs, or rubs. Normal PMI, no JVD. No pulse deficits. 17:05 Abdomen/GI: Soft, non-tender, with normal bowel sounds. No distension or tympany. No guarding or rebound. No evidence of tenderness throughout. Wound VAC noted mid abdomen. No erythema or discharge around wound site. 17:05 Back: No spinal tenderness. No costovertebral tenderness. Full range of motion. MS/ Extremity: Pulses equal, no cyanosis. Neurovascular intact. Full, normal range of motion. Neuro: Awake and alert, GCS 15, oriented to person, place, time, and situation. Cranial nerves II-XII grossly intact. Motor strength 5/5 in all extremities. Sensory grossly intact. 17:05 Respiratory: the patient does not display signs of respiratory distress, Respirations: tachypnea, that is mild, Breath sounds: are clear throughout. 17:05 Skin: Appearance: Color: pale, Temperature: normal temperature, Moisture: normal moisture. Vital Signs: 15:09 BP 103 / 63; Pulse 77; Resp 18; Pulse Ox 98% on 4 lpm NC; ss 16:42 BP 97 / 69; Pulse 77; Resp 22; Pulse Ox 95% on 4 lpm NC; hb 17:17 BP 101 / 53; Pulse 75; Resp 24; Pulse Ox 96% on 4 lpm NC; hb 18:05 BP 108 / 57; Pulse 74; Resp 21; Pulse Ox 100% on 4 lpm NC; hb MDM: 15:19 Patient medically screened. 17:09 Data reviewed: vital signs, nurses notes, lab test result(s), EKG, radiologic studies, 8 plain films. Data interpreted: Pulse oximetry: on 2L(s) per nasal canula, is 95 %. Interpretation: normal. Counseling: I had a detailed discussion with the patient and/or guardian regarding: the historical points, exam findings, and any diagnostic results supporting the discharge/admit diagnosis, lab results, radiology results, the need for further work-up and treatment in the hospital. 11/29 15:36 Order name: Basic Metabolic Panel; Complete Time: 16:54 11/29 15:36 Order name: CBC with Diff; Complete Time: 16:54 11/29 15:36 Order name: LFT's; Complete Time: 16:54 11/29 15:36 Order name: Magnesium; Complete Time: 16:54 11/29 15:36 Order name: NT PRO-BNP; Complete Time: 16:54 11/29 15:36 Order name: PT-INR; Complete Time: 16:54 11/29 15:36 Order name: Troponin (emerg Dept Use Only); Complete Time: 16:54 11/29 15:36 Order name: XRAY Chest (1 view); Complete Time: 16:54 11/29 17:07 Order name: Bb Add On ss 11/29 17:07 Order name: TS [facility] 11/29 17:11 Order name: Packed RBC Leukored EDHI 11/29 19:43 Order name: SARS-COV-2 RT PCR; Complete Time: 19:43 [facility] 11/29 15:36 Order name: EKG; Complete Time: 15:37 11/29 15:36 Order name: Cardiac monitoring; Complete Time: 17:37 11/29 15:36 Order name: EKG - Nurse/Tech; Complete Time: 17:37 11/29 15:36 Order name: IV Saline Lock; Complete Time: 15:45 11/29 15:36 Order name: Labs collected and sent; Complete Time: 17:37 jr8 11/29 15:36 Order name: O2 Per Protocol; Complete Time: 15:45 8 11/29 15:36 Order name: O2 Sat Monitoring; Complete Time: 15:45 8 11/29 19:30 Order name: CONS Physician Consult EDMS Administered Medications: No medications were administered Disposition: 11/30 08:12 Co-signature as Attending Physician, Gatito Chavez MD I agree with the assessment and jean claude plan of care. Disposition Summary: 11/29/20 17:11 Hospitalization Ordered Provider: Jarred Schuster Condition: Stable jr8 Problem: new jr8 Symptoms: have improved jr8 Bed/Room Type: Standard [facility] Hospitalization Status: Inpatient Admission(11/29/20 18:31) jr8 Location: Telemetry/MedSurg (Inpatient)(11/29/20 18:31) jr8 Room Assignment: [facility](11/29/20 20:00) Diagnosis - Chronic kidney disease, unspecified jr8 - Anemia, unspecified jr8 Forms: - Medication Reconciliation Form jr8 - SBAR form jr8 Signatures: Dispatcher [employer] EDMS Gatito Chavez MD MD cha Smirch, Shelby, RN RN Ray Shirley PA [facility] Melissa Crawford, JACQUELYN VALLADARES Aura Bermudez, RN RN Corrections: (The following items were deleted from the chart) 11/29 17:08 17:08 TYPE AND SCREEN+BB.LAB.BRZ ordered. EDMS EDMS 18:04 17:18 CORONAVIRUS+MR.LAB.BRZ ordered. EDMS EDMS 18:31 17:11 Observation jr8 8 18:31 17:11 Telemetry/MedSurg (observation) jr8 8 18:31 17:11 jr8 jr8 20:00 18:31 jr8
--- NOTE | 2020-11-29 17:12 | ER ---
Nurse's Notes [facility] Name: Lisa Ko Age: 65 yrs Sex: Female : 1955 Arrival Date: 11/29/2020 Time: 15:09 Bed 7 Private MD: Diagnosis: Chronic kidney disease, unspecified;Anemia, unspecified Presentation: 11/29 15:09 Chief complaint: shelter reports that patient began experiencing SOB this morning. ss Covid test was negative today, however chest XRAY showed CHF vs pneumonia. Pt had dialysis session yesterday, but stated they did not pull off as much fluid as usual and prison was attempting to schedule an extra session today/ tomorrow. Pt has wound vac to abdomen which is reportedly healing well. HX of liver transplant. Coronavirus screen: Client presents with at least one sign or symptom that may indicate coronavirus-19. The client reports previous COVID testing was negative. Ebola Screen: Patient denies exposure to infectious person. Patient denies travel to an Ebola-affected area in the 21 days before illness onset. Initial Sepsis Screen: Does the patient meet any 2 criteria? No. Patient's initial sepsis screen is negative. Does the patient have a suspected source of infection? No. Patient's initial sepsis screen is negative. Risk Assessment: Do you want to hurt yourself or someone else? Patient reports no desire to harm self or others. Onset of symptoms was November 29, 2020. Care prior to arrival: Medication(s) given: Normal saline infusion, 300 mL IV initiated. 20 GA, in the right wrist, Glucose check: 343. 15:09 Method Of Arrival: EMS: [facility] 15:09 Acuity: VANDA 3 Triage Assessment: 15:15 General: Appears in no apparent distress. Behavior is calm, cooperative. Pain: Denies hb pain. EENT: No signs and/or symptoms were reported regarding the EENT system. Neuro: Level of Consciousness is awake, alert, obeys commands, Oriented to person, place, time, situation. Cardiovascular: Patient's skin is warm and dry. Rhythm is regular. Respiratory: Reports shortness of breath at rest on exertion Respiratory effort is mildly labored Respiratory pattern is tachypnea. GI: No signs and/or symptoms were reported involving the gastrointestinal system. : No signs and/or symptoms were reported regarding the genitourinary system. Derm: Skin is pink, warm \T\ dry. surgical site on abdomen, wound vac in place. Musculoskeletal: No signs and/or symptoms reported regarding the musculoskeletal system. Historical: - Allergies: 15:17 Codeine; ss 15:17 Levaquin (rash); ss - PMHx: 15:17 Diabetes - IDDM; Dialysis-M/W/F; HD; Hypertension; liver cancer; liver transplant; ss neuropathy; TIA; - Immunization history:: Adult Immunizations up to date. - Social history:: Smoking status: Patient denies any tobacco usage or history of. Screenin:18 Abuse screen: Denies threats or abuse. Denies injuries from another. Nutritional hb screening: No deficits noted. Tuberculosis screening: No symptoms or risk factors identified. Fall Risk Total Guerra Fall Scale indicates Low Risk Score (25-44 pts). Fall prevention measures have been instituted. Side Rails Up X 2 Frequent Obs/Assesments occuring As available Patient and Family Educated on Fall Prevention Program and strategies. Assessment: 15:25 General: see triage assessment . hb 16:42 Reassessment: Patient appears in no apparent distress at this time. Patient and/or hb family updated on plan of care and expected duration. Pain level reassessed. Patient is alert, oriented x 3, equal unlabored respirations, skin warm/dry/pink. 17:18 Reassessment: Patient appears in no apparent distress at this time. Patient and/or hb family updated on plan of care and expected duration. Pain level reassessed. Admission ordered, awaiting hospitalist at this time. 18:03 Reassessment: Patient appears in no apparent distress at this time. Patient and/or hb family updated on plan of care and expected duration. Pain level reassessed. Patient is alert, oriented x 3, equal unlabored respirations, skin warm/dry/pink. 19:50 Reassessment: Patient and/or family updated on plan of care and expected duration. Pain ea level reassessed. Patient is alert, oriented x 3, equal unlabored respirations, skin warm/dry/pink. 21:22 Reassessment: Patient and/or family updated on plan of care and expected duration. Pain ea level reassessed. Patient is alert, oriented x 3, equal unlabored respirations, skin warm/dry/pink. Pt admitted to second floor, report given to receiving nurse. Pt left ED ambulatory tolerating well. Vital Signs: 15:09 BP 103 / 63; Pulse 77; Resp 18; Pulse Ox 98% on 4 lpm NC; ss 16:42 BP 97 / 69; Pulse 77; Resp 22; Pulse Ox 95% on 4 lpm NC; hb 17:17 BP 101 / 53; Pulse 75; Resp 24; Pulse Ox 96% on 4 lpm NC; hb 18:05 BP 108 / 57; Pulse 74; Resp 21; Pulse Ox 100% on 4 lpm NC; hb ED Course: 15:09 Patient arrived in ED. ss 15:17 Triage completed. ss 15:17 Arm band placed on right wrist. ss 15:19 Ray Shirley PA is PHCP. jr8 15:19 Gatito Chavez MD is Attending Physician. jr8 15:22 Aura Bermudez, JACQUELYN is Primary Nurse. hb 16:17 XRAY Chest (1 view) In Process Unspecified. EDMS 16:18 Patient has correct armband on for positive identification. Bed in low position. Side hb rails up X 1. 16:18 Maintain EMS IV. Dressing intact. Good blood return noted. Site clean \T\ dry. Gauge \T\ hb site: 20 RWrist. 17:10 Jarred Schuster is Hospitalizing Provider. jr8 21:19 No provider procedures requiring assistance completed. Patient admitted, IV remains in ea place. Administered Medications: No medications were administered Outcome: 17:11 Decision to Hospitalize by Provider. jr8 21:19 Admitted to Med/surg accompanied by nurse, via stretcher, room 215, with chart, Report ea called to Receiving nurse on second floor 21:19 Condition: stable 21:19 Instructed on the need for admit, Demonstrated understanding of instructions. 21:30 Patient left the ED. ea Signatures: Dispatcher [employer] EDMS Neetu Gallardo RN RN Ray Shirley PA PA jr8 Aura Bermudez, JACQUELYN VALLADARES Sanjuanita Santana RN RN ea
[2020-11-29] MEDS ORDERED: ACETAMINOPHEN 500 MG TAB PO PRN (20:35)
[2020-11-29] MEDS ORDERED: ONDANSETRON 4 MG/2 ML VIAL IV PRN (20:35)
[2020-11-29] MEDS ORDERED: FUROSEMIDE 40 MG/4 ML VIAL IV ONE (20:35)
[2020-11-29] MEDS: INSULIN -REGULAR HUMAN 50 UNIT/0.5 ML ML SQ SCH (21:00)
--- NOTE | 2020-11-29 21:12 | P.HP ---
Certification for Inpatient Patient admitted to: Inpatient With expected LOS: <2 Midnights Patient will require the following post-hospital care: None Practitioner: I am a practitioner with admitting privileges, knowledge of patient current condition, hospital course, and medical plan of care. Services: Services provided to patient in accordance with Admission requirements found in Title 42 Section 412.3 of the Code of Federal Regulations <Gil Naidu - Last Filed: 11/29/20 21:07> Patient History Date of Service: 11/29/20 Reason for admission: anemia requiring blood transfusions History of Present Illness: Ms. Ko is a 65 yo F with DM, ESRD on HD MWF, history of liver cancer s/p liver transplant 4 years ago, HTN, neuropathy, TIA who was brought in from [facility] for two days of increased SOB and fatigue. She was recently discharged from [facility] for large intestine perforation and has been recovering at the [facility] since then. No evidence of GI bleed. Recently told that her MWF dialysis schedule would be increased to MWTF for increased edema in her legs. H/H 6.3, K 3.3, BUN 32, Cr 3.82, GFR 12, Glu 212, BNP 46298. - Past Medical/Surgical History Diabetic: Yes -: TIA -: HTN -: liver transplant -: IDDM -: Liver Cancer -: neuropathy -: liver transplant - Family History Mother -: Stroke - Social History Smoking Status: Unknown if ever smoked Alcohol use: No CD- Drugs: Yes Caffeine use: No [facility]idence: [facility] <Gil Naidu - Last Filed: 11/29/20 21:07> Date of Service: 11/29/20 <Francois Forman - Last Filed: 12/05/20 02:06> Allergies codeine Allergy (Verified 07/23/17 07:10) Unknown levofloxacin [From Levaquin] Allergy (Verified 07/23/17 07:10) Unknown Home Medications: Acetaminophen [Tylenol] 650 mg PO Q6HP PRN 11/29/20 Amlodipine Besylate 10 mg PO DAILY 11/29/20 Atorvastatin Calcium [Lipitor] 40 mg PO BEDTIME 11/29/20 Insulin Glargine,Hum.rec.anlog [Lantus Solostar] 7 unit SQ BID 11/29/20 Metoprolol Tartrate [Lopressor] 100 mg PO BID 11/29/20 Tacrolimus [Prograf] 3 mg PO BID 11/29/20 Andrea [Andrea*] 1 pkt PO BID #60 powd.pack 12/01/20 traMADol HCL [Ultram*] 50 mg PO Q6H PRN #30 tab 12/01/20 Review of Systems 10-point ROS is otherwise unremarkable General: Malaise Respiratory: Shortness of Breath, SOB with Excertion <Gil Naidu - Last Filed: 11/29/20 21:07> Physical Examination - Physical Exam General: Alert, In no apparent distress, Oriented x3, Cooperative HEENT: Atraumatic, PERRLA, Mucous membr. moist/pink, EOMI, Sclerae nonicteric Neck: Supple, 2+ carotid pulse no bruit, No LAD, Without JVD or thyroid ab normality Respiratory: Diminished, Crackles/rales Cardiovascular: Regular rate/rhythm, Normal S1 S2 Gastrointestinal: Normal bowel sounds, No tenderness Musculoskeletal: No tenderness Integumentary: Skin breakdown, Pressure ulcer Neurological: Normal speech, Normal tone, Sensation intact, Cranial nerves 3-12 intact, Normal affect Lymphatics: No axilla or inguinal lymphadenopathy - Studies Laboratory Data (last 24 hrs) 11/29/20 15:44: PT 16.0 H, INR 1.39 11/29/20 15:44: WBC 4.90, Hgb 6.3 L*, Hct 19.8 L*, Plt Count 176 11/29/20 15:44: Sodium 135 L, Potassium 3.3 L, BUN 32 H, Creatinine 3.82 H, Glucose 212 H, Magnesium 2.0 D, Total Bilirubin 0.6, AST 9 L, ALT 11 L, Alkaline Phosphatase 115 <Gil Naidu S - Last Filed: 11/29/20 21:07> Assessment and Plan - Problems (Diagnosis) (1) ESRD (end stage renal disease) on dialysis Status: Chronic (2) Anemia requiring transfusions Status: Acute (3) HTN (hypertension) Onset Date: 07/23/17 Status: Chronic Qualifiers: Hypertension type: primary hypertension Qualified Code(s): I10 - Essential (primary) hypertension (4) IDDM (insulin dependent diabetes mellitus) Onset Date: 07/23/17 Status: Acute (5) History of liver cancer Status: Chronic (6) History of liver transplant Status: Chronic - Plan nephrology consulted transfuse 1 unit pRBCs now and follow with 80 units of IV Lasix over 20 minutes tomorrow, transfuse 2 units pRBCs with dialysis, monitor H/H O2 as needed reconcile and continue home medications sliding scale insulin and accuchecks wound care consult and pain management for pressure ulcer SCDs Discharge Plan: [facility] Plan to discharge in: 48 Hours - Advance Directives Does patient have a Living Will: No Does patient have a Durable POA for Healthcare: No - Code Status/Comfort Care Code Status Assessed: Yes (full code ) Critical Care: No Time Spent Managing Pts Care (In Minutes): 70 <Gil Naidu - Last Filed: 11/29/20 21:07> - Problems (Diagnosis) (1) ESRD (end stage renal disease) on dialysis Status: Chronic (2) CVA (cerebral vascular accident) Status: Acute (3) IDDM (insulin dependent diabetes mellitus) Onset Date: 07/23/17 Status: Acute (4) HTN (hypertension) Onset Date: 07/23/17 Status: Chronic Qualifiers: Hypertension type: primary hypertension Qualified Code(s): I10 - Essential (primary) hypertension (5) History of liver cancer Status: Chronic (6) History of liver transplant Status: Chronic <Francois Forman - Last Filed: 12/05/20 02:06> Date of Service: 11/29/20 Subjective Agree with plan of care as mentioned above Review of Systems 10-point ROS is otherwise unremarkable Physical Examination - Vital Signs Reviewed - Physical Exam General: Alert, In no apparent distress, Oriented x3 Respiratory: Diminished, Crackles/rales Cardiovascular: Regular rate/rhythm, Normal S1 S2, No murmurs Gastrointestinal: Normal bowel sounds, Soft and benign, Non-distended, No tenderness Musculoskeletal: No clubbing, No swelling, No tenderness Neurological: Sensation intact, Cranial nerves 3-12 intact - Studies Medications List Reviewed: Yes Assessment & Plan - Problems (Diagnosis) (1) ESRD (end stage renal disease) on dialysis Status: Chronic (2) CVA (cerebral vascular accident) Status: Acute (3) IDDM (insulin dependent diabetes mellitus) Onset Date: 07/23/17 Status: Acute (4) HTN (hypertension) Onset Date: 07/23/17 Status: Chronic Qualifiers: Hypertension type: primary hypertension Qualified Code(s): I10 - Essential (primary) hypertension (5) History of liver cancer Status: Chronic (6) History of liver transplant Status: Chronic - Plan Continue with plan of care as mentioned below: 1. Continue with hemodialysis per Nephrology 2. Continue with wound care and outpatient home health 3. Monitor labs and electrolytes closely 4. Strict blood pressure and blood sugar control 5. GI and DVT prophylaxis <Francois Forman - Last Filed: 12/05/20 02:06>
[2020-11-29] MEDS ORDERED: TRAMADOL HCL 50 MG TAB PO PRN (21:14)
[2020-11-29] MEDS ORDERED: NA CHLORIDE 0.9% 250 ML ONE (23:47)
[2020-11-30] MEDS ORDERED: FUROSEMIDE IV ONE (01:00)
[2020-11-30] MEDS ORDERED: NA CHLORIDE 0.9% IV ONE (01:00)
[2020-11-30 01:45] VITALS: BMI 30.8
[2020-11-30] MEDS ORDERED: FUROSEMIDE 40 MG/4 ML VIAL ONE (02:14)
[2020-11-30] MEDS ORDERED: NA CHLORIDE 0.9% 100 ML ONE (02:14)
[2020-11-30 05:58] LABS: Absolute Lymphocytes (CBC) 0.6 K/uL (0.7-4.9); Hematocrit 23.3 % (36.0-45.0); Lymphocytes % 18.2 % (15.3-44.8); MPV 7.3 fL (7.6-11.3); RBC Red Blood Cell Count 2.79 M/uL (3.86-4.86)
[2020-11-30 06:12] LABS: Albumin 1.8 g/dL (3.4-5.0); Bilirubin Total 0.7 mg/dL (0.2-1.0); Magnesium 2.1 mg/dL (1.8-2.4); Phosphorus 5.1 mg/dL (2.5-4.9); Potassium 3.6 mmol/L (3.5-5.1); Protein, Total 6.6 g/dL (6.4-8.2)
[2020-11-30] MEDS: INSULIN -REGULAR HUMAN 50 UNIT/0.5 ML ML SQ SCH ×4 (07:30→21:00)
[2020-11-30] MEDS ORDERED: EPOETIN ALFA 10,000 UNIT/ML VIAL IV SCH (12:00)
--- NOTE | 2020-11-30 14:25 | CON ---
Date of Consultation: 11/30/2020 Reason For Consultation: Hypertension, over volume, end-stage renal disease. History Of Present Illness: This is a pleasant 65-year-old female, well known to me from dialysis wi th significant past medical history of diabetes complicated with neuropathy, and nephropathy, hyperte nsion, hyperlipidemia, liver cancer, status post liver transplant 4 years back, on Prograf. The edith ent recently admitted to the hospital with small-bowel ischemia, status post resection. The patient came, apparently she was in the [place] [facility] with wound VACs and wound care. The patient found to michele ve shortness of breath. A primary workup show decreased hemoglobin down to 6.3. For that reason kenisha leach was admitted, we have been consulted. Over the night, the patient received 1 unit of blood maya sfusion. The patient slightly feeling better. Past Medical History: 1.Hypertension. 2.TIA. 3.Liver transplant 4 years back. 4.Diabetes complicated with neuropathy, nephropathy, retinopathy. 5.Liver cancer, status post liver transplant. 6.End-stage renal disease, on hemodialysis, Saturday, Saturday, Saturday at [facility] through left arm AV fistula. Home Medications: Include Procrit, amlodipine, metoprolol, tacrolimus, tramadol, and atorvastatin. Allergies: TO CODEINE AND LEVAQUIN. Past Surgical History: Include liver transplant, AV fistula creation. Family History: Positive for hypertension, CVA. Social History: Lives in [place] [facility]. Denied smoking. Denied drinking. Denied drugs abuse. Review of Systems: Head and Neck: No red eye. No ear pain. GI: Has no melena. Has wound VAC. : No polyuria, no dysuria, no hematuria. 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 Respiratory: Has shortness of breath. Cardiovascular: No chest pain. Musculoskeletal: Low back pain. Neuro: Legally blind. Physical Examination: Vital Signs: When I saw the patient; blood pressure 127/58, pulse of 87, afebrile. Chest: Crackles bilateral base. Heart: S1, S2 regular. Abdomen: Soft, nontender. Wound VAC. Extremities: No edema. Neuro: Legally blind. No focality. Laboratory Data: The patient's WBC 4.9, H and H 6.3/19.8. Chest x-ray; cardiomegaly with congestion . Sodium 136, potassium 3.6, bicarb 28, BUN 35, creatinine 4.1, GFR of 11, calcium 8.4, phosphorus 5 .1. BNP . Current Medications: The patient on include; Tylenol, Zofran, insulin, tramadol. Assessment And Plan: 1.End-stage renal disease, over volume. I again dialyzed the patient today. We will challenge the patient. We are not going to use any heparin today given the possible GI bleed. 2.Hypertension, controlled, optimal. We will utilize blood pressure for more ultrafiltration to est ablish better volume control. 3.Anemia of chronic kidney disease/GI loss post surgery. The patient received 1 unit of transfusion yesterday. We will give another 2 unit today and we will challenge the patient. We will resume Ret acrit. 4.Secondary hyperparathyroid, stable. 5.Liver transplant. Resume Prograf. BEBE/AMBROSIO Voice ID: [id number] Report ID: [id number]
[2020-11-30] MEDS ORDERED: NA CHLORIDE 0.9% 250 ML ONE (20:56)
[2020-11-30] MEDS: JUVEN PACKET PO SCH (21:00)
[2020-12-01 06:26] LABS: Hematocrit 32.3 % (36.0-45.0)
[2020-12-01] MEDS: INSULIN -REGULAR HUMAN 50 UNIT/0.5 ML ML SQ SCH ×2 (07:30→13:06)
[2020-12-01] MEDS: JUVEN PACKET PO SCH (09:00)
[2020-12-01 10:45] VITALS: O2SAT 96
[2020-12-01] MEDS ORDERED: ACETAMINOPHEN 325 MG TABLET PO PRN (10:52)
[2020-12-01] MEDS ORDERED: METOPROLOL TARTRATE 5 MG/5 ML INJ IV STA (10:53)
--- NOTE | 2020-12-01 10:58 | P.PN ---
Subjective Date of Service: 11/30/20 Subjective: Improving Patient doing well. Status post blood transfusion. Review of Systems 10-point ROS is otherwise unremarkable Physical Examination - Vital Signs Temperature: 97.2 F Blood Pressure: 140/80 Pulse: 110 Respirations: 18 Pulse Ox (%): 96 - Physical Exam General: Alert, In no apparent distress, Oriented x3 Respiratory: Diminished, Crackles/rales Cardiovascular: Regular rate/rhythm, Normal S1 S2, No murmurs Gastrointestinal: Normal bowel sounds, Soft and benign, Non-distended, No tenderness Musculoskeletal: No clubbing, No swelling, No tenderness Neurological: Sensation intact, Cranial nerves 3-12 intact - Studies Medications List Reviewed: Yes Assessment & Plan - Problems (Diagnosis) (1) ESRD (end stage renal disease) on dialysis Status: Chronic (2) CVA (cerebral vascular accident) Status: Acute (3) IDDM (insulin dependent diabetes mellitus) Onset Date: 07/23/17 Status: Acute (4) HTN (hypertension) Onset Date: 07/23/17 Status: Chronic Qualifiers: Hypertension type: primary hypertension Qualified Code(s): I10 - Essential (primary) hypertension (5) History of liver cancer Status: Chronic (6) History of liver transplant Status: Chronic - Plan Plan: 1. Continue with hemodialysis per Nephrology 2. Continue with wound care and outpatient home health 3. Monitor labs and electrolytes closely 4. Strict blood pressure and blood sugar control 5. GI and DVT prophylaxis Discharge Plan: Home Plan to discharge in: Greater than 2 days - Advance Directives Does patient have a Living Will: Yes Does patient have a Durable POA for Healthcare: Yes - Code Status/Comfort Care Code Status Assessed: Yes Code Status: Full Code Critical Care: No Time Spent Managing PTS Care (In Minutes): 35
[2020-12-01] MEDS ORDERED: INSULIN GLARGINE 100 UNITS/ML SQ SCH (11:00)
[2020-12-01 11:34] LABS: Absolute Lymphocytes (CBC) 0.4 K/uL (0.7-4.9); Hematocrit 34.1 % (36.0-45.0); Lymphocytes % 10.2 % (15.3-44.8); MPV 7.1 fL (7.6-11.3); RBC Red Blood Cell Count 4.12 M/uL (3.86-4.86)
[2020-12-01 11:36] LABS: Magnesium 1.9 mg/dL (1.8-2.4); Potassium 3.3 mmol/L (3.5-5.1)
--- NOTE | 2020-12-01 13:15 | PN ---
Date of Progress Note: 12/01/2020 Subjective: The patient was admitted with symptomatic anemia. The patient had blood transfusion, 3 units in total. The patient had dialysis yesterday with 2 units of blood transfusion. Physical Examination: Vital Signs: Blood pressure 140/80, pulse of 110, afebrile. Chest: Clear to auscultation. Heart: S1, S2. Regular. Abdomen: Soft. Dressing. Wound VAC has been removed. Extremities: No edema. Neurological: Alert, oriented. No focality. The patient is legally blind. Laboratory Data: H and H 10.9/34.1. Early in the morning, it was 10.6/32.3. Sodium 137, potassium 3.3, bicarb 29, BUN 25, creatinine 3.1, calcium 8.3, magnesium 1.9. Current Medications: The patient on include amlodipine 10, metoprolol 100 b.i.d., Tylenol, Lasix aft er transfusion, insulin, tramadol. Assessment And Plan: 1.End-stage renal disease, over volume, currently normal volume. Resume dialysis per schedule , Saturday, Saturday. We will schedule the patient for dialysis tomorrow. 2.Hypertension, controlled, optimal. Continue current treatment. 3.Over volume, currently normal volume, back to dialysis 3 times a week. 4.Anemia of chronic kidney disease/secondary to GI loss, status post transfusion. Continue WANG. 5.Secondary hyperparathyroidism, stable. 6.Hypertension. Continue current treatment. 7.Small intestine ischemia, status post resection. Wound healing well. Discontinue wound VAC. We will follow up with Wound Care. The patient not willing to [facility] to the [facility]. We will arrange for home health. The patient cleared from the Renal standpoint for discharge planning. BEBE/AMBROSIO Voice ID: [id number] Report ID: [id number]
[2020-12-01] MEDS ORDERED: METOPROLOL TAR 50 MG TAB PO SCH ×2 (14:00→18:00)
[2020-12-01] MEDS ORDERED: METOPROLOL TAR 25 MG TAB PO SCH (18:00)
[2020-12-01] MEDS ORDERED: HOME MED 1 EA UNK (Metoprolol Tartrate [Lopressor] 100 MG Tablet) PO SCH (21:00)
[2020-12-01] MEDS ORDERED: ATORVASTATIN 40 MG TAB PO SCH (21:00)
[2020-12-01] MEDS ORDERED: Tacrolimus [Prograf] 1 MG Capsule PO SCH (21:00)
[2020-12-02] MEDS ORDERED: AMLODIPINE 10 MG TAB PO SCH (09:00)
--- NOTE | 2020-12-05 02:04 | P.DS ---
Discharge Date: 12/01/20 Disposition: ROUTINE DISCHARGE Discharge Condition: GOOD Reason for Admission: anemia requiring blood transfusions - Problems (1) ESRD (end stage renal disease) on dialysis Status: Chronic (2) CVA (cerebral vascular accident) Status: Acute (3) IDDM (insulin dependent diabetes mellitus) Onset Date: 07/23/17 Status: Acute (4) HTN (hypertension) Onset Date: 07/23/17 Status: Chronic Qualifiers: Hypertension type: primary hypertension Qualified Code(s): I10 - Essential (primary) hypertension (5) History of liver cancer Status: Chronic (6) History of liver transplant Status: Chronic Brief History of Present Illness: Ms. Ko is a 65 yo F with DM, ESRD on HD MWF, history of liver cancer s/p liver transplant 4 years ago, HTN, neuropathy, TIA who [facility] for two days of increased SOB and fatigue. She was recently discharged from [facility] for large intestine perforation and has been recovering at the prison since then. No evidence of GI bleed. Recently told that her MWF dialysis schedule would be increased to MWTF for increased edema in her legs. H/H 6.3, K 3.3, BUN 32, Cr 3.82, GFR 12, Glu 212, BNP [id number]. Hospital Course: Patient was transfused and is clinically doing much better. Continue with current wound care. Patient wants to get this set up at home. Will arrange for outpatient home health. Hemoglobin has remained stable. At this time, patient is stable for discharge home. Vital Signs/Physical Exam: Temp Pulse Resp BP Pulse Ox 98.1 F 112 H 18 163/74 H 96 12/01/20 11:58 12/01/20 13:05 12/01/20 11:58 12/01/20 13:05 12/01/20 11:58 General: Alert, In no apparent distress, Oriented x3 Laboratory Data at Discharge: WBC 3.80 K/uL (4.3-10.9) L 12/01/20 11:06 Hgb 10.9 g/dL (12.0-15.0) L 12/01/20 11:06 Hct 34.1 % (36.0-45.0) L 12/01/20 11:06 Plt Count 256 K/uL (152-406) D 12/01/20 11:06 PT 16.0 SECONDS (9.5-12.5) H 11/29/20 15:44 INR 1.39 11/29/20 15:44 Sodium 137 mmol/L (136-145) 12/01/20 11:06 Potassium 3.3 mmol/L (3.5-5.1) L 12/01/20 11:06 BUN 25 mg/dL (7-18) H 12/01/20 11:06 Creatinine 3.17 mg/dL (0.55-1.3) H 12/01/20 11:06 Glucose 242 mg/dL (74-106) H 12/01/20 11:06 Phosphorus 5.1 mg/dL (2.5-4.9) H 11/30/20 05:13 Magnesium 1.9 mg/dL (1.8-2.4) 12/01/20 11:06 Total Bilirubin 0.7 mg/dL (0.2-1.0) 11/30/20 05:13 AST 14 U/L (15-37) L 11/30/20 05:13 ALT 8 U/L (12-78) L 11/30/20 05:13 Alkaline Phosphatase 102 U/L (45-117) 11/30/20 05:13 Home Medications: Acetaminophen [Tylenol] 650 mg PO Q6HP PRN 11/29/20 Amlodipine Besylate 10 mg PO DAILY 11/29/20 Atorvastatin Calcium [Lipitor] 40 mg PO BEDTIME 11/29/20 Insulin Glargine,Hum.rec.anlog [Lantus Solostar] 7 unit SQ BID 11/29/20 Metoprolol Tartrate [Lopressor] 100 mg PO BID 11/29/20 Tacrolimus [Prograf] 3 mg PO BID 11/29/20 Andrea [Andrea*] 1 pkt PO BID #60 powd.pack 12/01/20 traMADol HCL [Ultram*] 50 mg PO Q6H PRN #30 tab 12/01/20 New Medications: Andrea [Andrea*] 1 pkt PO BID #60 powd.pack traMADol HCL [Ultram*] 50 mg PO Q6H PRN #30 tab PRN Reason: Pain Scale 5-7 (Moderate) Physician Discharge Instructions: OK TO DC IV AND DC HOME FOLLOW-UP WITH WOUND HEALING CLINIC ONCE A WEEK FOLLOW-UP WITH NEPHROLOGY FOR HEMODIALYSIS FOLLOW-UP WITH HOME HEALTH CARE FOR PHYSICAL THERAPY RETURN TO THE ER IF SYMPTOMS WORSENS CALL DR. VALDERRAMA AT [phone] IF ANY QUESTIONS REGARDING HOSPITAL STAY Diet: Renal Activity: Fall precautions Followup: Luis Rawls MD [ACTIVE - CAN ADMIT] - (Call to schedule appointment) NONE,NONE [Primary Care Provider] - Time spent managing pt's care (in minutes): 35
[2020-12-05 02:05] VITALS: BP 140/80; TEMP 97.2
== END 2020-12-01 14:54 | disposition home or self-care (01) | DRG 811 ==
LOC: ER 15:05 → 2ND 20:16
PROVIDERS: ADMIT Hospitalist; ATTEND Hospitalist
PROC: 30233N1 Transfusion of Nonautologous Red Blood Cells into Peripheral Vein, Percutaneous Approach (ICD-10-PCS; principal; 2020-11-29)
PROC: 5A1D70Z Performance of Urinary Filtration, Intermittent, Less than 6 Hours Per Day (ICD-10-PCS; 2020-11-30)
DX: D50.0 Iron deficiency anemia secondary to blood loss (chronic) (principal); N18.6 End stage renal disease; I12.0 Hypertensive chronic kidney disease with stage 5 chronic kidney disease or end stage renal disease; Z94.4 Liver transplant status; N25.81 Secondary hyperparathyroidism of renal origin; E11.22 Type 2 diabetes mellitus with diabetic chronic kidney disease; E11.40 Type 2 diabetes mellitus with diabetic neuropathy, unspecified; E11.21 Type 2 diabetes mellitus with diabetic nephropathy; E11.319 Type 2 diabetes mellitus with unspecified diabetic retinopathy without macular edema; D63.1 Anemia in chronic kidney disease; Z99.2 Dependence on renal dialysis; Z85.05 Personal history of malignant neoplasm of liver; Z86.73 Personal history of transient ischemic attack (TIA), and cerebral infarction without residual deficits; Z90.49 Acquired absence of other specified parts of digestive tract; Z20.822 Contact with and (suspected) exposure to COVID-19
CPT/HCPCS: 36415; 36430; 71045; 80048; 80053; 80076; 82947; 83735; 83880; 84100; 84484; 85014; 85018; 85025; 85610; 86850; 86900; 86901; 90935; 94760; 97161; 99251; 99285; A6010; J1815; J1940; J7050; P9016; Q5105; U0003

== ENCOUNTER 2022-05-14 03:06 | Inpatient (IN) | payer OTHER, SELFPAY ==
[2022-05-14] MEDS ORDERED: IPRATROPIUM BROM 0.5MG/2.5ML ONE (03:18)
[2022-05-14] MEDS ORDERED: ALBUTEROL 2.5 MG/3 ML NEB SOL ONE (03:18)
--- OUTSIDE RECORDS SUMMARY | 2022-05-14 03:19 | XMS REPORT | Continuity of Care Document ---
:1955 Author Organization [facility] t Address [address] [place] [address] Care Team Providers Name Role Phone Belia ROONEYOdilia Eitan Primary Care Physician Jossy Muro RN Attending Clinician Unavailable RICA CULLEN Attending Clinician Unavailable Rica Cullen Attending Clinician Tiana Uriarte RN Attending Clinician Unavailable Dinorah Lewis Attending Clinician Unavailable Sherly Douglas MD Attending Clinician Yari Chan NP Attending Clinician YARI CHAN Attending Clinician Unavailable SHERLY DOUGLAS Attending Clinician Unavailable Ana Laura Branham MA Attending Clinician Unavailable AVIVA CANSECO Attending Clinician Unavailable JOSEMANUEL LAUREN Attending Clinician Unavailable Aviva Canseco MD Attending Clinician [phone] Nisreen Rose MA Attending Clinician Unavailable Destini Dan Attending Clinician Unavailable Marco Antonio Soto RN Attending Clinician Unavailable Nohemy Diana MA Attending Clinician Unavailable MARILOU MACKAY Attending Clinician Unavailable Angi Acuña Attending Clinician Unavailable Gilda PHELAN, Moon Attending Clinician Edilson PHELAN, Guy Attending Clinician Napoleon Kraus CRNA Attending Clinician [phone] Maurice PHELAN, Madelyn Emmanuel Attending Clinician Krista VALLADARES, Felicia Childers Attending Clinician Unavailable Wyatt PHELAN, Arnoldo SchneiderHSiomara Attending Clinician Claudio RN, Sophy Boyce Attending Clinician Unavailable Nino Rosenberg Attending Clinician Unavailable Hadley VALLADARES, Rabia Forrest Attending Clinician Unavailable Tru VALLADARES, Valeria Attending Clinician Unavailable Earnest PHELAN, Al Gamez Attending Clinician STEPAN SHAH Attending Clinician Unavailable AL NEWBY Attending Clinician Unavailable CHIRAG GARCIA Attending Clinician Unavailable PALMA RODRIGUES Attending Clinician Unavailable ALLIE RAMIREZ Attending Clinician Unavailable RICA CULLEN Admitting Clinician Unavailable MADELYN SEGAL Admitting Clinician Unavailable STEPAN SHAH Admitting Clinician Unavailable CHIRAG GARCIA Admitting Clinician Unavailable PALMA RODRIGUES Admitting Clinician Unavailable ALLIE RAMIREZ Admitting Clinician Unavailable Payers Payer Name Policy Type Policy Number Effective Date Expiration Date S ource [place] [employer] [id number] 2018 HMO 00:00:00 OPTUM UNITED ONLY [id number] 2020 MCR REPL 00:00:00 [employer] MCARE [id number] 2021 ADV CHOICE PPO 00:00:00 Problems Condition Condition Condition Status Onset Resolution Last Treating Co mments Source Name Details Category Date Date Treatment Clinician Date 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 00:00: Me dical is is 00 Center Screening Screening Disease Active [facility] 8 [facility] malignant malignant 00:00: [facility] erasmo neoplasm neoplasm 00 Center ESRD (end ESRD (end Disease Active 2018-03 Met hodi stage stage 0-10 st renal renal 00:00: Hospita disease) disease) 00 l on on dialysis dialysis AV AV Disease Active 2018-03 Methodi (arteriove (arteriove 0-10 st nous nous 00:00: Hospita fistula) fistula) 00 l Diabetes Diabetes Disease Active 2018-03 Metho di mellitus mellitus 0-10 st with with 00:00: Hospita hyperglyce hyperglyce 00 l john john Pleural Pleural Disease Active [facility] effusion effusion 6-13 [facility] 00:00: Medical 00 Center Acute on Acute on Disease Active [facility] chronic chronic 6-13 [facility] renal renal 00:00: Medical failure failure 00 Center Normochrom Normochrom Disease Active [facility] ic ic 6-13 [facility] normocytic normocytic 00:00: Me dical anemia anemia 00 Center KRISTIAN (acute KRISTIAN (acute Disease Active [facility] kidney kidney 5-26 [facility] injury) injury) 00:00: Medical 00 [place] Chest pain Chest pain Disease Active [facility] 5-17 [facility] 00:00: Medical 00 Center Immunosupp Immunosupp Disease Active Last [facility] ression ression 10-18 [facility] 00:00: [facility] of this note might be different from the original. On prograf maintenan ce- will adjust according to level. CKD CKD Disease Active Last [facility] (chronic (chronic 10-18 [facility] [place] [facility] kidney kidney 00:00: t & Plan: [facility] disease[facility] might be different from the original. Kidney function has recovered . Dr. Saini following . Hyperkalem Hyperkalem Disease Active [facility] ia ia - [facility] 00:00: t & Plan: Medical 00 [facility] g of this note might be different from the original. Resolved with discontin uation of losartan and avoidance of K in diet, while on prograf. Continue to monitor- labs pending. Liver Liver Disease Active [facility] replaced replaced 09-30 [facility] [place] by by 00:00: t & Plan: Medical transplant transplant 00 [facility] g of this note might be different from the original. Excellent graft function. Type 2 Type 2 Disease Active [facility] St diabetes diabetes 9-25 Ass[facility]men [place] mellitus mellitus 00:00: t & Plan: Med ical with with 00 [facility] diabetic diabetic g of this polyneurop polyneurop note athy, with athy, with might be long-term long-term different current current from the use of use of original. insulin insulin Blood sugars controlle d. Obesity Obesity Disease Active [facility] (BMI (BMI 9-25 [facility] 30-39.9) 30-39.9) 00:00: t & Plan: Med ical 00 [facility] g of this note might be different from the original. Patient has not yet started to diet. Patient uses a walker but seems motivated to make changes. States she has lost 45 pounds in anticipat ion of transplan t. Lipid profile looks good on last lab draw. Portal Portal Disease Active [facility] hypertensi hypertensi 10-29 [facility] on on 00:00: t & Plan: Medical 00 [facility] g of this note might be different from the original. Manifeste d by ugo tom. HCC HCC Disease Active [facility] (hepatocel (hepatocel 10-29 [facility] lular lular 00:00: t & Plan: Medical carcinoma) carcinoma) 00 [facility] g of this note might be different from the original. 2 foci of HCC without lymphovas cular invasion. Continue with HCC surveilla nce using cross-sec tional imaging. Hepatitis Hepatitis Disease Active [facility] C, C, 10-29 [facility] genotype genotype 00:00: t & Plan: Med ical 3a 3a 00 [facility] g of this note might be different from the original. Patient is s/p liver transplan t. Is being followed by hepatolog y. Immunity Immunity Disease Active Last [facility] t status status 10-29 [facility] testing testing 00:00: t & Plan: Medic al 00 [facility] g of this note might be different from the original. CDC recommend s that all patients with chronic liver disease, regardles s of etiology, should be immunized to prevent hepatitis A and hepatitis B if they are not already immune. This should be done in addition to other age-appro priate vaccines. We will test for immunity to both viruses - vaccine recommend ations will follow. Overweight Overweight Disease Active [facility] (BMI (BMI [facility] 25.0-29.9) 25.0-29.9) [facility] Met[facility] Disease [facility] syndrome syndrome [facility] ESRD (end ESRD (end Disease Active [facility] stage stage [facility] renal renal Medical disease) disease) Center ESRD on ESRD on Disease Active [facility] hemodialys hemodialys [facility] is is Medical Center Allergies, Adverse Reactions, Alerts Allergy Allergy Status Severity Reaction(s) Onset Inactive Treating Comm ents Source Name Type Date Date Clinician Levoflox Propensi Active Rash Method i acin ty to 11-20 adverse 00:00: Hospita reaction 00 l s to drug Codeine Propensi Active Itching Method i ty to 11-13 adverse 00:00: Hospita reaction 00 l s to drug CODEINE DRUG Active Med Rash 2014-03 [facility] INGREDI 2-07 ity of 00:00: [place] 00 Medical Branch LEVOFLOX DRUG Active Med Rash 2014-03 [facility] ACIN INGREDI 207 ity of 00:00: [place] 00 Medical Branch Codeine Propensi Active Rash 2014-03 Univers ty to 2-07 ity of adverse 00:00: [place] reaction 00 Medical s to Branch drug Levoflox Propensi Active Rash 2014-03 Univer s acin ty to 2-07 ity of adverse 00:00: [place] reaction 00 Medical s to Branch drug LEVOFLOX Allergy Active Itching [facility] ACIN 09-30 [facility] 00:00: Medical 00 [place] Levoflox Propensi Active Itching Itching,r [facility] acin ty to 09-30 [facility] adverse 00:00: burning Medical reaction 00 on the Center s site only. CODEINE Allergy Active Low Rash [facility] 10-29 [facility] 00:00: Medical 00 [place] Codeine Drug Active Rash [facility] Allergy 10-29 [facility] 00:00: Medical 00 [place] Family History Family Member Diagnosis Comments Start Date Stop Date Source Natural mother Stroke [facility] Natural sister Cancer [facility] Social History Social Habit Start Date Stop Date Quantity Comments Source History SDOH [facility] Alcohol Frequency Medical Center History SDOH [facility] Alcohol Std Drinks Medica l Center History SDOH [facility] Alcohol Binge Medical [address] [facility] History of tobacco Cigarette Smoker [facility] use [facility] Exposure to Not sure [facility] SARS-CoV-2 (event) Medica l Center Alcohol intake 2021-06-22 2021-06-[address] [place] 00:00:00 00:00:00 non-drinker of Medical Ce nter alcohol (finding) Cigarettes smoked 2018-11-18 2018-11-[address] [facility] current (pack per 00:00:00 00:00:00 Medical Center day) - Reported Cigarette 2018-11-18 2018-11-[address] [facility] pack-years 00:00:00 00:00:00 Medical Center Tobacco use and 2018-11-18 2018-11-[address] [facility] exposure 00:00:00 00:00:00 Medical Center History SDOH 2016-08-08 2016-08-08 1 drink/ 2 [facility] Alcohol Comment 00:00:00 00:00:00 Medical C enter Sex Assigned At [address] [facility] 00:00:00 00:00:00 Medical Center Smoking Status Start Date Stop Date Source Never smoked tobacco [facility] Former smoker 2018-11-18 00:00:00 2018-11-18 00:00:[address] [facility] Medications Ordered Filled Start Stop Current Ordering Indication Dosage Frequency Signature Comments Components Source Medication Medication Date Date Medication? Clinician (SIG) Name Name traMADol Yes 50mg Take [address] (ULTRAM) 50 3-31 by mouth 2 [facility] mg tablet 13:19: (two) Medical 44 times Center daily as needed for Pain . atorvastati Yes 40mg QD Take [address] n (LIPITOR) 3-31 by mouth Luke s 40 MG 13:19: daily. Medical tablet 44 Center lisinopriL Yes 10mg Take [address] (PRINIVIL,Z 3-31 by mouth. [place] ESTRIL) 10 13:19: Medical MG tablet 44 Center metoprolol Yes 100mg Q.5D Take [address] (TOPROL-XL) 3-31 mg by [facility] 100 MG 24 13:19: mouth 2 Medic al hr tablet 44 (two) Center times daily. clopidogreL Yes TAKE [address] (PLAVIX) 75 3-22 TABLET BY [place] mg tablet 00:00: MOUTH Medical 00 EVERY DAY Center FOR 14 DAYS Advair Yes 1{puff} Q.5D Inhale [address] Diskus 3-17 puff by Lukes 250-50 00:00: mouth via Medica l mcg/dose 00 inhaler 2 Center diskus (two) inhaler times daily. ferric Yes Take by Methodi citrate 11-[address] (Auryxia) 18:44: Hospita 210 mg iron 21 l tablet clopidogreL Yes 75mg QD Take 75 mg [facility]i (PLAVIX) 75 11-[address] mg tablet 18:44: daily. Hospit a 21 l lisinopriL Yes 10mg QD Take 10 mg M ethodi (PRINIVIL) 11-[address] 10 mg 18:44: daily. Hospita tablet 21 l ferric Yes Take by Methodi citrate 11-[address] (Auryxia) 13:44: Hospita 210 mg iron 21 l tablet clopidogreL Yes 75mg QD Take 75 mg Methodi (PLAVIX) 75 11-[address] mg tablet 13:44: daily. Hospit a 21 l lisinopriL Yes 10mg QD Take 10 mg M ethodi (PRINIVIL) 11-[address] 10 mg 13:44: daily. Hospita tablet 21 l atorvastati Yes 40mg QD Take 40 mg Methodi n (LIPITOR) 11-[address] 40 MG 20:08: daily. Hospita tablet 38 l LANTUS Yes 15U QD Inject 15 Method i SOLOSTAR 11-[address] U-100 20:08: under the Hospita INSULIN 100 38 skin every l unit/mL morning. injection (pen) traMADol Yes 50mg [id number] Take 50 mg Methodi (ULTRAM) 50 11-[id number] mouth [address] mg tablet 20:08: [...] ta 30 :00 l ergocalcife 2020- No [id number] Q7D Take Met hodi rol 11-23 50,000 [...] 3 cap QAM and 2 caps QHS. atorvastati Yes 40mg QD Take 40 mg Methodi n (LIPITOR) 11-[address] 40 MG 15:08: daily. Hospita tablet 38 l LANTUS Yes 15U QD Inject 15 Method i SOLOSTAR 11-[address] U-100 15:08: under the Hospita INSULIN 100 38 skin every l unit/mL morning. injection (pen) traMADol Yes 50mg Q.[id number] Take 50 mg Methodi (ULTRAM) 50 11-23 [id number] mouth [address] mg tablet 15:08: 3D (three) Hospi ta 38 times a l day as needed for moderate pain or severe pain. metoprolol Yes 50mg Q.5D Take 50 mg M ethodi tartrate 11-[address] (LOPRESSOR) 15:08: (two) Hospi ta 100 mg 38 times a l tablet day. tacrolimus Yes 3mg QD Take 3 mg Me thodi (PROGRAF) 1 11-[address] MG capsule 15:08: every Hospit a 38 morning. l Note: Pt is taking 3 cap QAM and 2 caps QHS. metoprolol Yes 100mg Q.5D Take [address] (TOPROL-XL) 8- mg by [facility]ukes 100 MG 24 19:16: mouth 2 Medic al hr tablet 07 (two) Center times daily. traMADol Yes 50mg Take [address] (ULTRAM) 50 11-18 by mouth 2 [facility] mg tablet 19:16: (two) Medical 07 times Center daily as needed for Pain . atorvastati Yes 40mg QD Take [address] n (LIPITOR) 11-18 by mouth Luke s 40 MG 19:16: daily. Medical tablet 07 Center insulin 2020- No 15U Inject [address] glargine 11-18-26 Units Lukes (Lantus 19:12: 00:00 [facility] Med ical Solostar 49 :00 ly. [place] U-100 Insulin) 100 unit/mL (3 mL) In insulin 2020- No 30U Inject [address] glargine 11-18- Units Lukes U-300 conc 19:12: 00:00 [facility] Medical (TOUJEO) 49 :00 ly. [place] 300 unit/mL (1.5 mL) InPn syringe amLODIPine 2021- No 10mg QD Take [address] (NORVASC) 11-18- tablet (10 [place] 10 MG 00:00: 23:59 mg total) Medica l tablet 00 :00 by mouth Center daily. amLODIPine 2021- No 10mg QD Take [address] (NORVASC) 11-18-27 tablet (10 [place] 10 MG 00:00: 23:59 mg total) Medica l tablet 00 :00 by mouth Center daily. insulin 2021- No 7U Q.5D Inject 7 [facility] t glargine 8- 08-26 Units Lukes (LANTUS) 00:00: 23:59 subcutaneo Me dical 100 unit/mL 00 :00 usly 2 Center injection (two) times daily Use as directed. gabapentin 2021- No 300mg Q.5D Take [address] (NEURONTIN) 11-17-26 capsule Luke s 300 MG 00:00: 23:59 (300 mg Medical capsule 00 :00 total) by Center mouth 2 (two) times daily. insulin 2021- No 7U Q.5D Inject 7 [facility] t glargine 11-17-26 Units Lukes (LANTUS) 00:00: 23:59 subcutaneo Me dical 100 unit/mL 00 :00 usly 2 Center injection (two) times daily Use as directed. gabapentin 2021- No 300mg Q.5D Take [address] (NEURONTIN) 11-17- capsule Luke s 300 MG 00:00: 23:59 (300 mg Medical capsule 00 :00 total) by Center mouth 2 (two) times daily. acetaminoph 2020- No 1000mg Take [address] en 11-17-05 tablets [facility]ukes (TYLENOL) 00:00: 23:59 (1,000 mg Me dical 500 MG 00 :00 total) by Center tablet mouth every 6 (six) hours for 10 days. ondansetron 2020- No TAKE 1 Met hodi (ZOFRAN) 4 10-[address] MG tablet 00:00: 00:00 MOUTH Hospit a 00 :00 EVERY 6 l HOURS FOR 10 DAYS NEEDED acetaminoph 2020- No 60{tbl} Q6H Take 60 Methodi en-codeine 10-[address] (TYLENOL 00:00: 00:00 mouth Hospita WITH 00 :00 every 6 l CODEINE #4) (six) 300-60 mg hours as per tablet needed. tacrolimus 2019-03 Yes TAKE 3 [facility] t (PROGRAF) 1 1-20 CAPSULES Luke s MG capsule 00:00: BY MOUTH Med ical 00 TWO TIMES Center DAILY tacrolimus 2019-03 Yes TAKE 3 [facility] t (PROGRAF) 1 1-20 CAPSULES Luke s MG capsule 00:00: BY MOUTH Med ical 00 TWO TIMES Center DAILY tacrolimus 2019- Yes TAKE 3 [facility] t (PROGRAF) 1 1-20 CAPSULES Luke s MG capsule 00:00: BY MOUTH Med ical 00 TWO TIMES Center DAILY tacrolimus 2019-03 2020- No 2mg Q.5D Take [address] (PROGRAF) 1 - 11-20 capsules [place] MG capsule 00:00: 00:00 (2 mg Medic al 00 :00 total) by Center mouth 2 (two) times daily. tacrolimus 2019-03- No 2mg Q.5D Take [address] (PROGRAF) 1 - 11-20 capsules [place] MG capsule 00:00: 00:00 (2 mg Medic al 00 :00 total) by Center mouth 2 (two) times daily. metoprolol 2020-0 Yes 100mg Q.5D Take [address] (TOPROL-XL) 1-21 mg by [facility]ukes 100 MG 24 18:16: mouth 2 Medic al hr tablet 17 (two) Center times daily. traMADol 2020-0 Yes 50mg Take [address] (ULTRAM) 50 1-21 by mouth 2 [facility] mg tablet 18:16: (two) Medical 17 times Center daily as needed for Pain . atorvastati 2020-0 Yes 40mg QD Take [address] n (LIPITOR) 1-21 by mouth Luke s 40 MG 18:16: daily. Medical tablet 17 Center sodium 2020-0 Yes 500mL Inject [address] chloride 1-21 mLs Lukes 0.9% (NS) 00:00: intravenou Me dical infusion 00 [facility] continuous . sodium 2020-0 2020- No 500mL Inject [address] chloride 1-21 08-26 mLs Lukes 0.9% (NS) 00:00: 00:00 intravenou M edical infusion 00 :00 [facility] continuous . tacrolimus 2019- No 3mg in the [facility] (PROGRAF) 1 12-08- morning Luke s MG capsule 00:00: 00:00 and 2mg at Medical 00 :00 night. Center tacrolimus 2019- No 3mg in the [facility] (PROGRAF) 1 12-08 morning Luke s MG capsule 00:00: 00:00 and 2mg at Medical 00 :00 night. Center insulin Yes 15U QD Inject 15 [facility] t glargine 8-27 Units Lukes (LANTUS 00:00: subcutaneo Medi erasmo SOLOSTAR 00 usly every Cente r U-100 morning. INSULIN) 100 unit/mL (3 mL) InPn insulin 2020- No 15U QD Inject [address] glargine 8-27 08-26 Units Lukes (LANTUS 00:00: 00:00 subcutaneo Med ical SOLOSTAR 00 :00 usly every Cente r U-100 morning. INSULIN) 100 unit/mL (3 mL) InPn tacrolimus 2014-03 Yes 6mg Take 6 mg Un isabel (PROGRAF) 1 2-09 by mouth ity of mg capsule 10:32: every 12 Roberto as 26 (twelve) Medical hours. Branch predniSONE 2014-03 Yes 15mg Take 15 mg U nivers (DELTASONE) 2-09 by mouth ity of 10 mg 10:32: daily. [place] tablet Medical Branch amLODIPine 2014-03 Yes 10mg Take 10 mg U nivers (NORVASC) 2-09 by mouth ity of 10 mg 10:32: daily. [place] tablet Medical Branch metoprolol 2014-03 Yes 100mg Take 100 Un isabel tartrate 2-09 mg by ity of (LOPRESSOR) 10:32: mouth 2 [place] as 100 mg 26 (two) Medical tablet times Branch daily. famotidine 2014-03 Yes 20mg Take 20 mg U nivers (PEPCID) 20 2-09 by mouth ity of mg tablet 10:32: daily. [place] [address] Medical Branch magnesium 2014-03 Yes 800mg Take 800 Uni vers oxide 2-09 mg by ity of (MAG-OX 10:32: mouth 2 [place] 400) 400 mg 26 (two) Medical tablet times Branch daily. ursodiol 2014-03 Yes 300mg Take 300 Univ ers (ACTIGALL) 2-09 mg by ity of 300 mg 10:32: mouth 2 [place] capsule 26 (two) Medical times Branch daily. insulin 2014-03 Yes 30U inject 30 Unive rs glargine 2-09 Units ity of (TOUJEO 10:32: under the [place] SOLOSTAR) 26 skin every Medi erasmo 300 unit/mL evening. Bran ch (1.5 mL) InPn tacrolimus 2014-03 Yes 6mg Take 6 mg Un isabel (PROGRAF) 1 2-09 by mouth ity of mg capsule 10:32: every 12 Roberto as 26 (twelve) Medical hours. Branch predniSONE 2014-03 Yes 15mg Take 15 mg U nivers (DELTASONE) 2-09 by mouth ity of 10 mg 10:32: daily. [place] tablet Medical Branch amLODIPine 2014-03 Yes 10mg Take 10 mg U nivers (NORVASC) 2-09 by mouth ity of 10 mg 10:32: daily. [place] tablet Medical Branch metoprolol 2014-03 Yes 100mg Take 100 Un isabel tartrate 2-09 mg by ity of (LOPRESSOR) 10:32: mouth 2 [place] as 100 mg 26 (two) Medical tablet times Branch daily. famotidine 2014-03 Yes 20mg Take 20 mg U nivers (PEPCID) 20 2-09 by mouth ity of mg tablet 10:32: daily. [address] magnesium 2014-03 Yes 800mg Take 800 Uni vers oxide 2-09 mg by ity of (MAG-OX 10:32: mouth 2 [place] 400) 400 mg 26 (two) Medical tablet times Branch daily. ursodiol 2014-03 Yes 300mg Take 300 Univ ers (ACTIGALL) 2-09 mg by ity of 300 mg 10:32: mouth 2 [place] capsule 26 (two) Medical times Branch daily. insulin 2014-03 Yes 30U inject 30 Unive rs glargine 2-09 Units ity of (TOUJEO 10:32: under the [place] SOLOSTAR) 26 skin every Medi erasmo 300 unit/mL evening. Bran ch (1.5 mL) InPn tacrolimus 2014-03 Yes 6mg Take 6 mg Un isabel (PROGRAF) 1 2-09 by mouth ity of mg capsule 10:32: every 12 [place] as 26 (twelve) Medical hours. Branch predniSONE 2014-03 Yes 15mg Take 15 mg U nivers (DELTASONE) 2-09 by mouth ity of 10 mg 10:32: daily. [place] tablet Medical [place] amLODIPine 2014-03 Yes 10mg Take 10 mg U nivers (NORVASC) 2-09 by mouth ity of 10 mg 10:32: daily. [place] tablet Medical Branch metoprolol 2014-03 Yes 100mg Take 100 Un isabel tartrate 2-09 mg by ity of (LOPRESSOR) 10:32: mouth 2 [place] as 100 mg 26 (two) Medical tablet times Branch daily. famotidine 2014-03 Yes 20mg Take 20 mg U nivers (PEPCID) 20 2-09 by mouth ity of mg tablet 10:32: daily. [place] [address] Medical Branch magnesium 2014-03 Yes 800mg Take 800 Uni vers oxide 2-09 mg by ity of (MAG-OX 10:32: mouth 2 [place] 400) 400 mg 26 (two) Medical tablet times Branch daily. ursodiol 2014-03 Yes 300mg Take 300 Univ ers (ACTIGALL) 2-09 mg by ity of 300 mg 10:32: mouth 2 [place] capsule 26 (two) Medical times Branch daily. insulin 2014-03 Yes 30U inject 30 Unive rs glargine 2-09 Units ity of (TOUJEO 10:32: under the [place] SOLOSTAR) 26 skin every Medi erasmo 300 unit/mL evening. Bran ch (1.5 mL) InPn blood sugar Yes Diabetes Test [address] [facility] [facility] diagnostic 7-31 (HCC) times [facility]ukes (EASY 00:00: daily, Medical TOUCH) Strp [address] and at bedtime. blood sugar Yes Diabetes Test [address] [facility] diagnostic 7-31 (HCC) times [facility]ukes (EASY 00:00: daily, Medical TOUCH) Strp [address] and at bedtime. blood sugar Yes Diabetes Test [address] [facility] diagnostic 7-31 (HCC) times Lukes (EASY 00:00: daily, Medical TOUCH) Strp [address] and at bedtime. Immunizations Ordered Immunization Filled Immunization Date Status Commen ts Source Name Name SARS-COV-2 COVID-19 2020-12-13 Completed Unive rsity of MODERNA VACCINE 00:00:00 [facility] SARS-COV-2 COVID-19 2020-12-13 Completed Unive rsity of MODERNA VACCINE 00:00:00 [facility] SARS-COV-2 COVID-19 2020-12-13 Completed Unive rsity of MODERNA VACCINE 00:00:00 [facility] SARS-COV-2 COVID-19 2020-06-19 Completed Unive rsity of MODERNA VACCINE 00:00:00 [facility] SARS-COV-2 COVID-19 2020-06-19 Completed Unive rsity of MODERNA VACCINE 00:00:00 [facility] SARS-COV-2 COVID-19 2020-06-19 Completed Unive rsity of MODERNA VACCINE 00:00:00 [facility] SARS-COV-2 COVID-19 2020-05-22 Completed Unive rsity of MODERNA VACCINE 00:00:00 [facility] SARS-COV-2 COVID-19 2020-05-22 Completed Unive rsity of MODERNA VACCINE 00:00:00 [facility] SARS-COV-2 COVID-19 2020-05-22 Completed Unive rsity of MODERNA VACCINE 00:00:00 [facility] Pneumococcal 2016-08-[address] [facility] Polysaccharide 00:00:00 Medical Ce nter (Pneumovax) Pneumococcal 2016-08-[address] [facility] Polysaccharide 00:00:00 Medical Ce nter (Pneumovax) Pneumococcal 2016-08-[address] [facility] Polysaccharide 00:00:00 Medical Ce nter (Pneumovax) Vital Signs Vital Name Observation Time Observation Value Comments Source WEIGHT 2020-11-18 14:09:00 81.8 kg WEIGHT 2020-11-17 10:00:00 81.784 kg WEIGHT 2020-11-17 06:00:00 83.5 kg WEIGHT 2020-11-16 07:04:00 84 kg WEIGHT 2020-11-14 18:30:00 81.6 kg WEIGHT 2020-11-13 05:57:00 83.643 kg WEIGHT 2020-11-12 04:00:00 83.008 kg WEIGHT 2020-11-11 17:45:00 82.6 kg WEIGHT 2020-11-11 06:05:00 84.641 kg WEIGHT 2020-11-10 06:00:00 82.736 kg WEIGHT 2020-11-09 17:20:00 82.1 kg WEIGHT 2020-11-09 11:34:00 84.188 kg WEIGHT 2020-11-07 08:00:00 84.641 kg WEIGHT 2020-11-06 05:00:00 80.6 kg WEIGHT 2020-11-05 13:20:00 81.2 kg WEIGHT 2020-11-05 09:20:00 83.2 kg WEIGHT 2020-11-05 00:00:00 83.2 kg HEIGHT 2020-11-04 04:00:00 165.1 cm WEIGHT 2020-11-04 04:00:00 86.637 kg HEIGHT 2021-06-22 13:11:00 165.1 cm WEIGHT 2021-06-22 13:11:00 73.483 kg HEIGHT 2021-06-22 13:11:00 165.1 cm WEIGHT 2021-06-22 13:11:00 73.483 kg HEIGHT 2021-06-22 13:11:00 165.1 cm WEIGHT 2021-06-22 13:11:00 73.483 kg WEIGHT 2020-11-18 14:09:00 81.8 kg WEIGHT 2020-11-17 10:00:00 81.784 kg WEIGHT 2020-11-17 06:00:00 83.5 kg WEIGHT 2020-11-16 07:04:00 84 kg WEIGHT 2020-11-14 18:30:00 81.6 kg WEIGHT 2020-11-13 05:57:00 83.643 kg WEIGHT 2020-11-12 04:00:00 83.008 kg WEIGHT 2020-11-11 17:45:00 82.6 kg WEIGHT 2020-11-11 06:05:00 84.641 kg WEIGHT 2020-11-10 06:00:00 82.736 kg WEIGHT 2020-11-09 17:20:00 82.1 kg WEIGHT 2020-11-09 11:34:00 84.188 kg WEIGHT 2020-11-07 08:00:00 84.641 kg WEIGHT 2020-11-06 05:00:00 80.6 kg WEIGHT 2020-11-05 13:20:00 81.2 kg WEIGHT 2020-11-05 09:20:00 83.2 kg WEIGHT 2020-11-05 00:00:00 83.2 kg HEIGHT 2020-11-04 04:00:00 165.1 cm WEIGHT 2020-11-04 04:00:00 86.637 kg Oxygen saturation in 2021-06-22 13:11:00 99 /min [facility] Arterial blood by Medical Ce nter Pulse oximetry Systolic blood 2021-06-22 13:11:00 105 mm[Hg] [facility] Diastolic blood 2021-06-22 13:11:00 83 mm[Hg] [facility] Heart rate 2021-06-22 13:11:00 54 /min [facility] Body temperature 2021-06-22 13:11:00 36.67 Peg [facility] Body height 2021-06-22 13:11:00 165.1 cm [facility] Body weight 2021-06-22 13:11:00 73.483 kg [facility] BMI 2021-06-22 13:11:00 26.96 kg/m2 [facility] Systolic blood 2020-11-18 18:15:00 160 mm[Hg] [facility] Diastolic blood 2020-11-18 18:15:00 62 mm[Hg] [facility] Heart rate 2020-11-18 18:15:00 88 /min [facility] Body temperature 2020-11-18 18:15:00 36.78 Peg [facility] Respiratory rate 2020-11-18 18:15:00 19 /min [facility] Body weight 2020-11-18 18:15:00 80 kg [facility] BMI 2020-11-18 18:15:00 29.35 kg/m2 [facility] Oxygen saturation in 2020-11-18 18:15:00 96 /min [facility] Arterial blood by Medical Ce nter Pulse oximetry Body height 2020-11-04 04:00:00 165.1 cm [facility] Body height 2020-05-04 15:11:00 165.1 cm [facility] Body weight 2020-05-04 15:11:00 87 kg [facility] BMI 2020-05-04 15:11:00 31.92 kg/m2 [facility] Procedures Procedure Date / Time Performing Clinician Source Performed US CHEST 2021-10-05 17:47:41 Rica Cullen [facility] BASIC METABOLIC PANEL 2021-07-14 15:03:00 Yari Chan [facility] HEPATIC FUNCTION PANEL 2021-07-14 15:03:00 Yari Chan [facility] CBC W/PLT COUNT & AUTO 2021-07-14 15:03:00 Yari Cahn [facility] PROTHROMBIN TIME/INR 2021-07-14 15:03:00 Yari Chan [facility] TACROLIMUS 2021-07-14 15:03:00 Yari Chan [facility] BASIC METABOLIC PANEL 2021-06-22 12:42:00 Yari Chan [facility] HEPATIC FUNCTION PANEL 2021-06-22 12:42:00 Yari Chan [facility] CBC W/PLT COUNT & AUTO 2021-06-22 12:42:00 Yari Chan [facility] PROTHROMBIN TIME/INR 2021-06-22 12:42:00 Yari Chan [facility] TACROLIMUS LEVEL 2021-06-22 12:42:00 Yari Chan [facility] MAGNESIUM 2021-06-22 12:42:00 Yari Chan [facility] CBC W/PLT COUNT & AUTO 2021-06-22 12:42:00 Yari Chan [facility] HEMODIALYSIS INPATIENT 2020-11-18 13:57:04 Ritchie Saini [facility] POCT-GLUCOSE METER 2020-11-18 12:01:00 [facility] PO[facility]SE [facility]ER 2020-11-18 07:39:00 [facility] POCT-GLUCOSE METER 2020-11-17 21:13:00 [facility] POCT-GLUCOSE METER 2020-11-17 17:05:00 [facility] SARS-COV2/RT-PCR ([facility] 2020-11-17 13:47:[address] [facility], [facility] Medical & REF LABS) [place] POCT-GLUCOSE METER 2020-11-17 11:44:[address] [facility] POCT-GLUCOSE METER 2020-11-17 08:06:00 [facility] CBC W/PLT COUNT & AUTO 2020-11-17 05:24:00 Adio, [facility] BASIC METABOLIC PANEL 2020-11-17 05:24:00 [facility], [facility] [place] TACROLIMUS LEVEL 2020-11-17 05:24:00 Adio, [facility] POCT-GLUCOSE METER 2020-11-16 17:16:[address] [facility], [facility] POCT-GLUCOSE METER 2020-11-16 13:20:00 [facility] HEMODIALYSIS INPATIENT 2020-11-16 11:45:00 Ritchie Saini [facility] POCT-GLUCOSE METER 2020-11-15 21:03:00 Adio, [facility] POCT-GLUCOSE METER 2020-11-15 18:31:00 Adio, [facility] POCT-GLUCOSE METER 2020-11-15 11:27:00 Adio, [facility] POCT-GLUCOSE METER 2020-11-15 07:53:00 Adio, [facility] CBC W/PLT COUNT & AUTO 2020-11-15 06:18:00 Adio, [facility] BASIC METABOLIC PANEL 2020-11-15 06:18:00 [facility], [facility] [place] TACROLIMUS LEVEL 2020-11-15 06:18:00 [facility] 2020-11-14 14:57:03 Saini, Ritchie Maria [facility] POCT-GLUCOSE METER 2020-11-14 13:17:00 Adio, [facility] POCT-GLUCOSE METER 2020-11-14 08:26:00 Adio, [facility] POCT-GLUCOSE METER 2020-11-13 19:38:00 Adio, [facility] POCT-GLUCOSE METER 2020-11-13 17:24:00 Adio, [facility] POCT-GLUCOSE METER 2020-11-13 11:45:00 Adio, [facility] POCT-GLUCOSE METER 2020-11-13 08:52:00 Adio, [facility] CBC W/PLT COUNT & AUTO 2020-11-13 06:30:00 [facility] DIFFERENTIAL [facility] BASIC METABOLIC PANEL 2020-11-13 06:30:00 [facility] (7) [facility] PROTHROMBIN TIME/INR 2020-11-13 06:30:00 [facility] TACROLIMUS LEVEL 2020-11-13 06:30:00 [facility] (CELLAVISION MANUAL 2020-11-13 06:30:00 [facility] DIFF) [facility] POCT-GLUCOSE METER 2020-11-12 17:09:00 Adio, [facility] POCT-GLUCOSE METER 2020-11-12 12:18:00 Adio, [facility] POCT-GLUCOSE METER 2020-11-12 08:51:00 Adio, [facility] CBC W/PLT COUNT & AUTO 2020-11-12 05:09:00 [facility] DIFFERENTIAL [facility] BASIC METABOLIC PANEL 2020-11-12 05:09:00 Anbarasu, [facility] (7) [facility] PROTHROMBIN TIME/INR 2020-11-12 05:09:00 [facility] TACROLIMUS LEVEL 2020-11-12 05:09:00 [facility] (CELLAVISION MANUAL 2020-11-12 05:09:00 [facility] DIFF) [facility] HEMODIALYSIS INPATIENT 2020-11-11 13:52:56 Ritchie Saini [facility] POCT-GLUCOSE METER 2020-11-11 11:13:00 Vivek Mattson [facility] POCT-GLUCOSE METER 2020-11-11 07:40:00 Vivek Mattson RSiomara [facility] CBC W/PLT COUNT & AUTO 2020-11-11 05:24:00 [facility] DIFFERENTIAL [facility] BASIC METABOLIC PANEL 2020-11-11 05:24:00 [facility] (7) [facility] PROTHROMBIN TIME/INR 2020-11-11 05:24:00 [facility] TACROLIMUS LEVEL 2020-11-11 05:24:00 [facility] (CELLAVISION MANUAL 2020-11-11 05:24:00 [facility] DIFF) [facility] POCT-GLUCOSE METER 2020-11-10 07:21:00 Vivek Mattson [facility] CBC W/PLT COUNT & AUTO 2020-11-10 05:11:00 [facility] DIFFERENTIAL [facility] BASIC METABOLIC PANEL 2020-11-10 05:11:00 [facility] (7) [facility] PROTHROMBIN TIME/INR 2020-11-10 05:11:00 [facility] HEMOGLOBIN A1C 2020-11-10 05:11:00 [facility], [facility] TA[facility] LEV[facility] 2020-11-10 05:11:00 [facility] POCT-GLUCOSE METER 2020-11-09 22:17:00 Twila [facility] HEMODIALYSIS INPATIENT 2020-11-09 14:11:34 Ritchie Saini [facility] POCT-GLUCOSE METER 2020-11-09 11:54:00 Twila [facility] POCT-GLUCOSE METER 2020-11-09 05:46:00 Twila [facility] CBC W/PLT COUNT & AUTO 2020-11-09 05:00:00 [facility] DIFFERENTIAL [facility] BASIC METABOLIC PANEL 2020-11-09 05:00:00 [facility] (7) [facility] MAGNESIUM 2020-11-09 05:00:00 [facility] PHOSPHORUS 2020-11-09 05:00:00 [facility] CALCIUM, IONIZED 2020-11-09 05:00:00 [facility] HEPATIC FUNCTION PANEL 2020-11-09 05:00:00 [facility] APTT 2020-11-09 05:00:00 [facility] PROTHROMBIN TIME/INR 2020-11-09 05:00:00 [facility] VANCOMYCIN LEVEL, 2020-11-09 05:00:00 Radames Mcneill [facility] TACROLIMUS LEVEL 2020-11-09 05:00:00 [facility] POCT-GLUCOSE METER 2020-11-09 00:31:00 Gamal Munson [facility] POCT-GLUCOSE METER 2020-11-08 17:57:00 Jeimy, Gamal [facility] CBC W/PLT COUNT & AUTO 2020-11-08 06:30:00 Moshe Santiago [facility] BASIC METABOLIC PANEL 2020-11-08 06:30:00 [facility] (7) [facility] MAGNESIUM 2020-11-08 06:30:00 [facility]as [facility] PHOSPHORUS 2020-11-08 06:30:00 [facility]CI[facility], ION[facility]ED 2020-11-08 06:30:00 [facility] FUN[facility] 2020-11-08 06:30:00 [facility] APTT 2020-11-08 06:30:00 [facility] PROTHROMBIN TIME/INR 2020-11-08 06:30:00 [facility] TACROLIMUS LEVEL 2020-11-08 06:30:00 [facility] POCT-GLUCOSE METER 2020-11-07 23:38:00 [facility] POCT-GLUCOSE METER 2020-11-07 11:40:00 [facility] CBC W/PLT COUNT & AUTO 2020-11-07 05:13:00 Moshe Santiago [facility] BASIC METABOLIC PANEL 2020-11-07 05:13:00 [facility] (7) [facility] MAGNESIUM 2020-11-07 05:13:00 [facility] centerasu, [facility] PHOSPHORUS 2020-11-07 05:13:00 [facility] CALCIUM, IONIZED 2020-11-07 05:13:00 [facility] HEPAT[facility] FUNCTION PANEL 2020-11-07 05:13:00 [facility] centerasu, [facility] APTT 2020-11-07 05:13:00 Corrie [facility] PROTHROMBIN TIME/INR 2020-11-07 05:13:00 Corrie [facility] TACROLIMUS LEVEL 2020-11-07 05:13:00 Corrie [facility] VANCOMYCIN LEVEL, 2020-11-06 15:03:00 Hailey Lynch [facility] RANDOM [place] POCT-GLUCOSE METER 2020-11-06 15:03:00 [facility] [place] 2D ECHO W/ DOPPLER 2020-11-06 13:05:20 Ronnie [facility] (CW/PW/COLOR) [facility] POCT-GLUCOSE METER 2020-11-06 05:47:00 [facility] [place] CBC W/PLT COUNT & AUTO 2020-11-06 03:35:00 Moshe Santiago [facility] DIFFERENTIAL [place] CALCIUM, IONIZED 2020-11-06 03:35:00 [facility] TACROLIMUS LEVEL 2020-11-06 03:35:00 Britts[facility] centerregi [facility] BASIC METABOLIC PANEL 2020-11-06 03:34:00 Corrie [facility] (7) Shayla [place] MAGNESIUM 2020-11-06 03:34:00 [facility] [place] PHOSPHORUS 2020-11-06 03:34:00 Britts[facility] centerregi [facility] [place] HEPATIC FUNCTION PANEL 2020-11-06 03:34:00 Britts[facility] centerregi [facility] APTT 2020-11-06 03:34:00 Britts[facility] centercorby [facility] PROTHROMBIN TIME/INR 2020-11-06 03:34:00 Ronnie [facility] HC VENOUS DOPPLER EXT 2020-11-06 01:45:00 Will Wallace [facility] Center POCT-GLUCOSE METER 2020-11-05 23:49:00 Bradley [facility] US HEPATIC PORTAL 2020-11-05 20:40:00 Jacqueline Panghan [facility] VESSEL WITH DOPPLER Center POCT-GLUCOSE METER 2020-11-05 17:58:00 [facility] MAGNESIUM 2020-11-05 15:33:00 [facility] [place] PHOSPHORUS 2020-11-05 15:33:00 [facility] BASIC METABOLIC PANEL 2020-11-05 15:33:00 Brittsierra [facility] centercorby [facility] (7) [facility] VANCOMYCIN LEVEL, 2020-11-05 15:33:00 [facility] PO[facility]UCOSE METER 2020-11-05 12:46:00 Bradley [facility] BLOOD CULTURE 2020-11-05 12:11:00 [facility] BLOOD CULTURE 2020-11-05 11:59:00 [facility] POCT-GLUCOSE METER 2020-11-05 06:11:00 [facility] HEPATITIS B SURFACE 2020-11-05 05:45:00 Ritchie Saini [facility] ANTIGEN Center CBC W/PLT COUNT & AUTO 2020-11-05 05:45:00 Moshe Santiago [facility] DIFFERENTIAL Center BASIC METABOLIC PANEL 2020-11-05 05:45:00 Corrie [facility] (7) [facility] MAGNESIUM 2020-11-05 05:45:00 Corrie [facility] PHOSPHORUS 2020-11-05 05:45:00 [facility] CALCIUM, IONIZED 2020-11-05 05:45:00 [facility] TACROLIMUS LEVEL 2020-11-05 05:45:00 [facility] HEPATIC FUNCTION PANEL 2020-11-05 05:45:00 [facility] APTT 2020-11-05 05:45:00 [facility] PROTHROMBIN TIME/INR 2020-11-05 05:45:00 [facility] POCT-GLUCOSE METER 2020-11-05 00:15:00 Gamal Munson [facility] CBC W/PLT COUNT & AUTO 2020-11-04 18:41:00 [facility] BASIC METABOLIC PANEL 2020-11-04 18:41:00 [facility] (7) [facility] MAGNESIUM 2020-11-04 18:41:00 [facility] PHOSPHORUS 2020-11-04 18:41:00 [facility] PROTHROMBIN TIME/INR 2020-11-04 18:41:00 [facility] APTT 2020-11-04 18:41:00 [facility] HEPATIC FUNCTION PANEL 2020-11-04 18:41:00 [facility] LACTIC ACID, ARTERIAL 2020-11-04 18:41:00 [facility] POCT-GLUCOSE METER 2020-11-04 15:25:00 Gamal Munson [facility] TISSUE EXAM 2020-11-04 12:35:00 Madelyn Segal [facility] ANAEROBIC CULTURE 2020-11-04 11:35:27 Madelyn Segal [facility] SURGICALLY OBTAINED 2020-11-04 11:35:27 Madelyn Segal Siomara [facility] CULTURE + GRAM STAIN Center FUNGUS CULTURE + SMEAR 2020-11-04 11:35:27 Madelyn Segal [facility] LAPAROTOMY,EXPLORATORY 2020-11-04 10:13:00 Madelyn Segal [facility] LAPAROSCOPY,SMALL BOWEL 2020-11-04 10:13:00 Madelyn Segal [facility] RESECTION Center SARS-COV2/RT-PCR ([facility] 2020-11-04 09:29:00 Brenda Zarate [facility] & REF LABS) Center TYPE AND SCREEN, 2020-11-04 09:22:00 Brenda Zarate [facility] AUTOMATED Center CBC W/PLT COUNT & AUTO 2020-11-04 09:21:00 [facility] DIFFERENTIAL Center BASIC METABOLIC PANEL 2020-11-04 09:21:00 Jami [facility]intonJerold [facility] (7) [place] (CELLAVISION MANUAL 2020-11-04 09:21:00 [facility] DIFF) Center ECG 12-LEAD 2020-11-04 09:15:51 Guy Waggoner [facility] POCT-GLUCOSE METER 2020-11-04 08:20:00 Gamal Munson [facility] CBC W/PLT COUNT & AUTO 2020-11-04 03:06:00 [facility] DIFFERENTIAL Center BASIC METABOLIC PANEL 2020-11-04 03:06:00 [facility] (7) [place] LACTIC ACID, VENOUS 2020-11-04 03:06:00 [facility] PROTHROMBIN TIME/INR 2020-11-04 03:06:00 [facility] HEPATIC FUNCTION PANEL 2020-11-04 03:06:00 Lucian Nathan [facility] REPORT OF PROCEDURE - 2020-11-04 00:00:00 Provider, [facility] ENDOSCOPY SCAN Scanning Center CT CHEST WO CONTRAST 2020-10-27 00:00:00 Provider, Historical [facility] Plan of Care Planned Activity Planned Date Details Comments Source Future Scheduled 2022-06-[address] [facility] Test 00:00:00 [facility] Cent[facility] r Screening (12+) [code = Tobacco Cessation Counseling and Screening (12+)] Future Scheduled 2022-03-[address] [facility] Test 00:00:00 (12+) [code = Medical Center DEPRESSION SCREENING (12+)] Future Scheduled 2022-03-25 FALLS RISK SCREENING [facility] Test 00:00:00 [code = FALLS RISK Medical C enter SCREENING] Future Scheduled 2022-03-11 COVID-19 VACCINE (#1) [facility] Test 01:35:41 [code = COVID-19 VACCINE (#1)] Future Scheduled 2022-03-11 BREAST CANCER [facility] Test 01:35:41 SCREENING [code = BREAST CANCER SCREENING] Future Scheduled 2022-03-11 COLONOSCOPY SCREENING [facility] Test 01:35:41 [code = COLONOSCOPY SCREENING] Future Scheduled 2022-03-11 SHINGLES VACCINES (1 [facility] Test 01:35:41 of 2) [code = SHINGLES VACCINES (1 of 2)] Future Scheduled 2022-03-11 65+ [facility]AL [facility] 01:35:41 VACCINE (1 - PCV) [code = 65+ PNEUMOCOCCAL VACCINE (1 - PCV)] Future Scheduled 2022-03-11 INFLUENZA VACCINE [facility] Test 01:35:41 [code = INFLUENZA VACCINE] Future Scheduled 2021-11-23 INFLUENZA VACCINE (#1) [facility] 00:[facility]00 [code = INFLUENZA Medical Ce nter VACCINE (#1)] Future Scheduled 2021-08-09 PNEUMOCOCCAL 65+ YRS [facility] Test 00:00:00 (1 of 1 - [facility] Center [id number] [id number]) [code = PNEUMOCOCCAL 65+ YRS (1 of 1 - [id number] [id number])] Future Scheduled 2021-08-09 PNEUMOCOCCAL 65+ YRS [facility] Test 00:00:00 (1 of 1 [facility] Center [id number] [id number]) [code = PNEUMOCOCCAL 65+ YRS (1 of 1 - [id number] [id number])] Future Scheduled 2021-05-[address] [facility] 00[facility] Medical [place] (procedure) [code = 89892688] Future Scheduled 2021-05-[address] 00:00:00 [facility] (procedure) [code = 17418633] Future Scheduled 2021-03-07 COVID-19 VACCINE (4 - [facility]00 [facility] series) [code = COVID-19 VACCINE (4 - [employer] for [employer] series)] Future Scheduled 2020-11-23 INFLUENZA VACCINE (#1) [facility] 00:00:00 [code = INFLUENZA Medical Ce nter VACCINE (#1)] Future Scheduled 2020-11-23 INFLUENZA VACCINE (#1) [facility] 00:00:00 [code = INFLUENZA Medical Ce nter VACCINE (#1)] Future Scheduled 2020-03-[address] [facility] Test 00:00:00 (12+) [code = Medical Center DEPRESSION SCREENING (12+)] Future Scheduled 2020-03-25 FALLS RISK SCREENING [facility] Test 00:00:00 [code = FALLS RISK Medical C enter SCREENING] Future Scheduled 2020-03-[address] [facility] Test 00:00:00 (12+) [code = Medical Center DEPRESSION SCREENING (12+)] Future Scheduled 2020-03-25 FALLS RISK SCREENING [facility] Test 00:00:00 [code = FALLS RISK Medical C enter SCREENING] Future Scheduled 2019-07-[address] [facility] 00:00:00 WELLNESS (YEAR 2 or Medical Center FIRST YEAR if no IPPE) [code = MEDICARE ANNUAL WELLNESS (YEAR 2 or FIRST YEAR if no IPPE)] Future Scheduled 2019-07-[address] [facility] 00:00:00 WELLNESS (YEAR 2 or Medical Center FIRST YEAR if no IPPE) [code = MEDICARE ANNUAL WELLNESS (YEAR 2 or FIRST YEAR if no IPPE)] Future Scheduled 2019-07-[address] [facility] 00:00:00 WELLNESS (YEAR 2 or Medical Center FIRST YEAR if no IPPE) [code = MEDICARE ANNUAL WELLNESS (YEAR 2 or FIRST YEAR if no IPPE)] Future Scheduled 2019-02-[address] [facility] 00:00:00 measurement Medical Center (procedure) [code = 81053039] Future Scheduled 2017-08-09 PNEUMOCOCCAL 65+ [address] [facility] Test 00:00:00 (2 - PCV) [code = Medical Ce nter PNEUMOCOCCAL 65+ YRS (2 - PCV)] Future Scheduled 2015-12-19 DXA SCAN [code = DXA [facility] Test 00:00:00 SCAN] Medical Center Future Scheduled 2003 SHINGLES VACCINES ([address] [facility] Test 00:00:00 of 2) [code = SHINGLES Medic al Center VACCINES (1 of 2)] Future Scheduled 2003 SHINGLES VACCINES ([address] [facility] Test 00:00:00 of 2) [code = SHINGLES Medic al Center VACCINES (1 of 2)] Future Scheduled 2003 SHINGLES VACCINES ([address] [facility] Test 00:00:00 of 2) [code = SHINGLES Medic al Center VACCINES (1 of 2)] Future Scheduled 1972-01-08 DTAP/TDAP/TD VACCINES [facility] 00:00:00 (1 - Tdap) [code = Medical C enter DTAP/TDAP/TD VACCINES (1 - Tdap)] Future Scheduled 1972-01-08 DTAP/TDAP/TD VACCINES [facility] 00:00:00 (1 - Tdap) [code = Medical C enter DTAP/TDAP/TD VACCINES (1 - Tdap)] Future Scheduled 1972-01-08 DTAP/TDAP/TD VACCINES [facility] 00:00:00 (1 - Tdap) [code = Medical C enter DTAP/TDAP/TD VACCINES (1 - Tdap)] Future Scheduled 1965 COVID-19 VACCINE (1) [facility] Test 00:00:00 [code = COVID-[address] VACCINE (1)] Future Scheduled 1965 DIABETIC EYE EXAM [facility] 00:00:00 [code = DIABETIC EYE Medical Center EXAM] Future Scheduled [address] [facility] 00:[facility]:00 examination Medical Center (regime/therapy) [code = [id number]] Future Scheduled 1963 Urine screening for [facility] Test 00:00:00 protein (procedure) Medical Center [code = [id number]] Future Scheduled 1963 DIABETIC EYE EXAM [facility] 00:00:00 [code = DIAB[facility]IC [facility] EXAM] Future Scheduled [address] [facility] examination [facility] (regime/therapy) [code = 749143451] Future Scheduled 1963 Urine screening for [facility] 00:00:00 protein (procedure) [facility] [code = 589153199] Future Scheduled [address] EYE EXAM [facility] 00:00:00 [code = DI[facility]IC [facility]YE [facility] EXAM] Future Scheduled [address] [facility] examination [facility] Center (regime/therapy) [code = 657357470] Future Scheduled 1963 Urine screening for [facility] 00:00:00 protein (procedure) [facility] [code = 465381120] Future Scheduled [address] [facility] 00:[facility]:00 malignant neoplasm of [facility] breast (procedure) [code = 172805232] Future Scheduled [address] [facility] 00:00:00 (combo) [code = CT Medical C enter Colonography (combo)] Future Scheduled [address] [facility] 00:[facility]:00 malignant ne[facility] colon (procedure) [code = 180066575] Future Scheduled [address] [facility] 00:00:00 [facility] colon (procedure) [code = 542741950] Future Scheduled [address] [facility] 00:[facility]:00 [facility] colon (procedure) [code = 916931250] Future Scheduled [address] [facility] 00:[facility]:00 malignant [facility] colon (procedure) [code = 626993454] Future Scheduled 1955 Sigmoidoscopy [code = [facility]] [facility] Future Scheduled [address] [facility] 00:00:00 malignant ne[facility] breast (procedure) [code = 325532724] Future Scheduled [address] [facility] 00[facility]00 [facility]procedure) [code = 294041219] Future Scheduled [address] [facility] 00:00:00 malignant ne[facility] of [facility] breast (procedure) [code = 579409578] Future Scheduled [address] [facility] 00:00:00 [facility] colon (procedure) [code = 780898602] Future Scheduled 65[facility] VACCINE (1 of 4 - PCV13) [code = 65+ PNEUMOCOCCAL VACCINE (1 of 4 - PCV13)] Future Scheduled DIABETES: RETINAL EYE [facility] EXAM [code = DIABETES: RETINAL EYE EXAM] Future Scheduled [facility] Test [code = DIABETIC FOOT EXAM] Future Scheduled COVID-19 VACCINE (1) [facility] [code = COVID-19 VACCINE (1)] Future Scheduled BREAST CANCER [facility] SCREENING [code = BREAST CANCER SCREENING] Future Sched[facility] [code = COLONOSCOPY SCREENING] Future Scheduled SHINGLES VACCINES (#1) [facility] [code = SHINGLES VACCINES (#1)] Future Scheduled INFLUENZA [facility]ACCINE [facility] [code = INFLUENZA VACCINE] Encounters Start End Encounter Admission Attending Care Care Encounter Source Date/Time Date/Time Type Type Clinicians Facility Department ID 2021-01-01 Inpatient ER [facility] Surgery [id number] [facility] 08:35:00 2022-01-16 2022-01-[address] [id number] 00:[facility] 00:00:00 [facility] 2021-10-05 2021-10-05 Outpatient R SUBHASH [facility] [id number] Univers 11:57:27 23:59:00 RICA leger [facility] 2021-10-05 2021-10-05 [facility] 1.2.840.114 [id number] Univers 11:57:27 23:59:00 Encounter Rica VARELA 350.1.13.10 ity [facility] 4.2.7.2.686 [facility] [id number] [place] 694386 [place] 2021-08-14 2021-08-14 [facility] 1.2.840.114 [id number] Univers 16:28:40 23:59:00 Encounter Rica VARELA 350.1.13.10 [facility] 4.2.7.2.686 [facility] [id number] [place] 694387 Branch 2021-08-14 2021-08-14 Out[facility] [id number] Univers 15:37:33 16:27:00 RICA ity [facility] 2021-08-14 2021-08-14 [facility] 1.2.840.114 [id number] Univers 15:37:33 16:27:00 Encounter Rica VARELA 350.1.13.10 ity of [place] 4.2.7.2.686 [facility] [id number] [address] 2021-07-26 2021-07-26 Telephone Chapito [facility] [id number] 00:00[facility]00 00:00:00 [facility] 2021-07-06 2021-07-06 Documentat Joshua [facility] [id number] 00:00[facility]00 00:00:00 ion [facility] 2021-07-04 2021-07-04 Telephone Chapito [facility] [id number] 00:00:00 00:00:00 [facility] 2021-06-22 2021-06-22 Office Sherly Douglas [facility] [id number] 13:30:00 14:00:00 Visit Yari Chan [facility] 2021-06-22 2021-06-22 Outpatient GLORY MACIAS [facility] [id number] GLORY 12:22:42 12:22:42 YARI 2021-06-21 2021-06-21 Telephone Carrol [facility] [id number] 00:00:00 00:00:00 [facility] 2021-05-17 2021-05-17 Documentraina Lewis [facility] [id number] 00:00:00 00:00:00 tanya Baca [facility] 2021-05-15 2021-05-15 Abstract Jina [facility] [id number] 00:00:00 00:00:00 [facility] 2021-04-27 2021-04-27 Outpatient EL [facility] [id number] [facility] 00:00:00 23:59:00 2021-04-27 2021-04-27 Outpatient EL [facility] [id number] [facility] 00:00:00 00:00:00 2021-04-27 2021-04-27 Outpatient EL [facility]H [facility] [id number] [facility] 00:00:00 00:00:00 2021-04-27 2021-04-27 Outpatient EL [facility]H [facility]H [id number] [facility]H 00:00:00 00:00:00 2021-04-27 2021-04-27 Outpatient EL AJITH, SLEH [facility] [id number] [facility]H 00:00:00 00:00:00 BHAMIDIPATI 2021-04-27 2021-04-27 Outpatient EL [facility]H [facility]H [id number] [facility]H 00:00:00 00:00:00 2021-04-27 2021-04-27 Outpatient EL SLEH [facility]H [id number] [facility]H 00:00:00 00:00:00 2021-03-02 2021-03-02 Outpatient EL [facility]H [facility] [id number] [facility] 00:00:00 00:00:00 2021-03-02 2021-03-02 Outpatient EL [facility] [id number] [facility] 00:00:00 00:00:00 2021-03-02 2021-03-02 Outpatient EL [facility]H [facility]H [id number] [facility] 00:00:00 00:00:00 2021-03-02 2021-03-02 Outpatient EL [facility]H [facility]H [id number] [facility] 00:00:00 00:00:00 2021-03-02 2021-03-02 Outpatient EL [facility]H SLEH [id number] [facility]H 00:00:00 00:00:00 2021-03-02 2021-03-02 Outpatient EL AJITH, SLEH SLEH [id number] [facility]H 00:00:00 00:00:00 AMIDIPATI 2021-03-02 2021-03-02 Outpatient EL SLEH SLE [id number] [facility]H 00:00:00 00:00:00 2020-12-13 2020-12-13 Outpatient Jack LEONIDAS, [facility] [id number] Univers 13:30:00 13:21:33 JOSEMANUEL leger [facility] 2020-12-08 2020-12-08 Out[facility] [id number] [facility] 00:00:00 00:00:00 SHERLY 2020-11-24 2020-11-24 [facility] [id number] 23:59:00 23:59:00 Encounter [facility] 2020-11-24 2020-11-24 [facility] [id number] 23:59:00 23:59:00 Encounter [facility] 2020-11-24 2020-11-24 Outpatient SLE SLE [id number] [facility] 00:00:00 00:00:00 2020-11-24 2020-11-24 Outpatient SLE SLE [id number] [facility] 00:00:00 00:00:00 2020-11-24 2020-11-24 Outpatient AJITH, SLE SLE [id number] [facility]H 00:00:00 00:00:00 AMIDIPATI 2020-11-24 2020-11-24 Outpatient EL SLEH SLE [id number] [facility]H 00:00:00 00:00:00 2020-11-24 2020-11-24 Outpatient SLEH SLE [id number] [facility] 00:00:00 00:00:00 2020-11-24 2020-11-24 Outpatient EL [facility]H SLEH [id number] [facility] 00:00:00 00:00:00 2020-11-24 2020-11-24 Outpatient SLE SLE [id number] [facility]H 00:00:00 00:00:00 2020-11-24 2020-11-24 Telephone [place], 1.2.840.1 [id number] Methodi 00:00:00 00:00:[address] 3.430.2.7 Hospit a .3.722560 l .8 2020-11-24 2020-11-24 [facility] [id number] 00:[facility] 00:00:00 [facility] 2020-11-24 2020-11-24 Orders Soto, 1.2.840.1 [id number] Methodi 00:00:00 00:00:00 Only Marco Antonio 21221.1.[address] 3.430.2.7 Hospit a .3.570090 l .8 2020-11-23 2020-11-23 Abstract Lebron, 1.2.840.1 [id number] Methodi 00:00:00 00:00:[address] 3.430.2.7 Hospit a .3.731380 l .8 2020-11-21 2020-11-21 [facility] [id number] 00:00[facility]00 00:00:00 [facility] 2020-11-17 2020-11-17 Outpatient SLE SLE [id number] SLEH 00:00:00 00:00:00 2020-11-17 2020-11-17 Outpatient SLE SLE [id number] SLEH 00:00:00 00:00:00 2020-11-17 2020-11-17 Outpatient MISAEL, [facility] SLE [id number] [facility]H 00:00:00 00:00:00 SHERLY 2020-11-17 2020-11-17 Outpatient EL SLE SLE [id number] SLEH 00:00:00 00:00:00 2020-11-17 2020-11-17 Outpatient SLEH SLE [id number] [facility]H 00:00:00 00:00:00 2020-11-17 2020-11-17 Outpatient SLEH SLEH [id number] [facility]H 00:00:00 00:00:00 2020-11-17 2020-11-17 Outpatient EL SLE SLE [id number] SLEH 00:00:00 00:00:00 2020-11-15 2020-11-15 Outpatient SLEH SLEH [id number] [facility] 00:00:00 00:00:00 2020-11-15 2020-11-15 Outpatient SLE SLE [id number] [facility]H 00:00:00 00:00:00 2020-11-15 2020-11-15 Outpatient AJITH, SLE SLE [id number] [facility]H 00:00:00 00:00:00 BHAMIDIPATI 2020-11-15 2020-11-15 Outpatient EL SLE SLE [id number] [facility]H 00:00:00 00:00:00 2020-11-14 2020-11-14 [facility] [id number] 00:00[facility]00 00:00:00 ion [facility] 2020-11-07 2020-11-07 Orders Provider, 1.2.840.1 [id number] Methodi 00:00:00 00:00:00 Only Historical 49037.1.1 787 s t 3.430.2.7 Hospit a .3.561289 l .8 2020-11-04 2020-11-04 Anesthesia dEilsonCarringtonh [facility] [id number] 10:39:00 14:37:00 [facility]-04 2020-11-04 Surgery Maurice [facility] [id number] 09:46:00 13:23:00 [facility] 2020-11-04 2020-11-[address] [facility] [id number] [facility] 00:[facility]00 00:00:00 [facility] 2020-11-03 2020-11-03 Melissa Velasco [facility] [id number] 00:00:00 00:00:00 Felicia Childers [facility] 2020-11-02 2020-11-02 Telephone Schneider, 1.2.840.1 [id number] Methodi 00:00:00 00:00:00 Edward [facility] 57864.1.[address] 3.430.2.7 Hospit a .3.052792 l .8 2020-11-02 2020-11-02 Travel 1.2.840.1 1.2.749.288 [id number] Methodi 00:00:00 00:00:[address] 3.430.2.7 0.2.7.3.698 Ho spita .3.342251 084.8 l .8 2020-11-02 2020-11-02 Telephone Schneider, 1.2.840.1 [id number] Methodi 00:00:00 00:00:00 Ed[address] 3.430.2.7 Hospit a .3.727945 l .8 2020-10-27 2020-10-27 [facility] [id number] [id number] 00:00[facility]00 00:00:00 [facility] 2020-10-20 2020-10-20 Documentat Domenico [facility] [id number] 00:00:00 00:00:00 tanya Whitley [facility] 2020-10-06 2020-10-06 [facility]phone [facility] [id number] 00:00:00 00:00:00 [facility] 2020-09-08 2020-09-08 [facility] [id number] 23:59:00 23:59:00 [facility] 2020-09-08 2020-09-08 Outpatient SLEH SLE [id number] [facility]H 00:00:00 00:00:00 2020-09-08 2020-09-08 Outpatient SLEH SLEH [id number] [facility]H 00:00:00 00:00:00 2020-09-08 2020-09-08 Outpatient SLEH SLEH [id number] SLEH 00:00:00 00:00:00 2020-09-08 2020-09-08 Outpatient AJITH, SLEH SLEH [id number] [facility]H 00:00:00 00:00:00 AVIVA 2020-09-08 2020-09-08 Outpatient EL SLEH SLEH [id number] SLEH 00:00:00 00:00:00 2020-09-08 2020-09-08 Outpatient EL SLEH SLEH [id number] [facility]H 00:00:00 00:00:00 2020-09-08 2020-09-08 Outpatient EL SLEH SLEH [id number] [facility] 00:00:00 00:00:00 2020-09-08 2020-09-08 Outpatient EL SLEH SLE [id number] [facility]H 00:00:00 00:00:00 2020-08-31 2020-08-31 Documentraina Dan [facility] [id number] [facility] 00:00:00 ion [facility] 2020-08-26 2020-08-26 Yaya Dan [facility] [id number] 00:00[facility]00 00:00:00 [facility] 2020-08-24 2020-08-24 Documentraina Acuña [facility] [id number] [id number] 00:00:00 00:00:00 ion [facility] 2020-08-12 2020-08-12 Telephone Domenico [facility] [id number] 00:00:00 00:00:00 [facility] 2020-08-11 2020-08-11 Documentat Domenico, [facility] [id number] [id number] 00:00:00 00:00:00 ion [facility] 2020-08-11 2020-08-11 Documentat Domenico, [facility] [id number] [id number] 00:00:00 00:00:00 [facility] 2020-08-10 2020-08-10 Documentat Domenico, [facility] [id number] [id number] 00:00:00 00:00:00 [facility] 2020-08-08 2020-08-08 Telephone [facility] [id number] 00:00:00 00:00:00 [facility] 2020-07-05 2020-07-05 [facility] [id number] 23:59:00 23:59:00 Encounter [facility] 2020-07-05 2020-07-05 [facility] [id number] 23:59:00 23:59:00 Encounter [facility] 2020-07-05 2020-07-05 Outpatient SLEH SLEH [id number] [facility] 00:00:00 00:00:00 2020-07-05 2020-07-05 Outpatient SLEH SLEH [id number] [facility] 00:00:00 00:00:00 2020-07-05 2020-07-05 Outpatient AJITH, SLEH [facility]H [id number] [facility]-05 2020-07-05 Outpatient EL AJITH, SLEH SLEH [id number] [facility] 00:00:00 00:00:00 [facility] 2020-07-05 2020-07-05 Outpatient AJITH, SLEH SLEH [id number] [facility] 00:00:00 00:00:00 [facility] 2020-07-05 2020-07-05 Outpatient SLEH SLEH [id number] [facility] 00:00:00 00:00:00 2020-07-05 2020-07-05 Telephone Snyder [facility] [id number] 00:00[facility]00 00:00:00 [facility] 2020-07-04 2020-07-04 Documentat Ni [facility] [id number] [facility] 00:[facility]00 00:00:00 ion [facility] 2020-06-09 2020-06-09 [facility] [id number] 00:00:00 00:00:00 [facility] 2020-06-08 2020-06-08 Telephone Domenico [facility] [id number] 00:00:00 00:00:00 [facility] 2020-05-30 2020-05-30 [facility] [id number] 00:00[facility]00 00:00:00 [facility] 2020-05-24 2020-05-24 Abstract Chet [facility] [id number] 00:00:00 00:00:00 [facility] 2020-05-16 2020-05-16 Abstract Jina [facility] [id number] 00:00:00 00:00:00 [facility] 2020-05-13 2020-05-13 Abstract Jina [facility] [id number] 00:00:00 00:00:00 [facility] 2020-05-09 2020-05-09 Abstract Chet [facility] [id number] 00:00:00 00:00:00 [facility] 2020-05-09 2020-05-09 Documentat Chet [facility] [id number] 00:00:00 00:00:00 [facility] 2020-05-06 2020-05-06 Abstract Hadley, [facility] [id number] 00:00:00 00:00:00 [facility] 2020-05-04 2020-05-04 Documentraina Rosenberg, [facility] [id number] 00:00:00 00:00:00 [facility] 2020-05-04 2020-05-04 Documentraina Rosenberg, [facility] [id number] 00:00:00 00:00:00 [facility] 2020-05-04 2020-05-04 Documentraina Rosenberg, [facility] [id number] 00:00:00 00:00:00 [facility] 2020-05-04 2020-05-04 Telephone Chet [facility] [id number] 00:00:00 00:00:00 [facility] 2020-05-04 2020-05-04 Documentraina Rosenberg, [facility] [id number] 00:00:00 00:00:00 [facility] 2020-05-04 2020-05-04 Telephone Chet [facility] [id number] 00:00:00 00:00:00 [facility] 2020-05-04 2020-05-04 Abstract Chet [facility] [id number] 00:00:00 00:00:00 [facility] 2020-04-13 2020-04-13 Telephone Domenico [facility] [id number] 00:00:00 00:00:00 [facility] 2020-04-11 2020-04-11 Telephone Tru [facility] [id number] 00:00:00 00:00:00 [facility] 2020-04-01 2020-04-01 Telephone Domenico [facility] [id number] 00:00:00 00:00:00 [facility] 2020-02-26 2020-02-26 Telephone Domenico [facility] [id number] 00:00:00 00:00:00 [facility] 2020-02-26 2020-02-26 Sam Acuña [facility] [id number] 00:00:00 00:00:00 [facility] 2020-02-25 2020-02-25 [facility]ina [facility] [id number] [id number] 00:00:00 00:00:00 [facility] 2020-02-11 2020-02-11 Al Glaser [facility] [id number] 00:00:00 00:00:00 [facility] 2020-02-09 2020-02-09 [facility] [id number] 00:00:00 00:00:00 [facility] 2020-01-26 2020-01-26 Telephone [facility] [id number] 00:00:00 00:00:00 [facility] 2020-01-25 2020-01-25 Sam Acuña [facility] [id number] 00:00:00 00:00:00 [facility] 2020-01-25 2020-01-25 Telephone [facility] [id number] 00:00:00 00:00:00 [facility] 2020-01-25 2020-01-25 Sam [facility] [id number] 00:00:00 00:00:00 [facility] 2019-12-04 2019-12-04 Outpatient CAMERON DOUGLAS [facility] [id number] SLE 00:00:00 00:00:00 SHERLY 2019-12-04 2019-12-04 Outpatient DHARMESH DOUGLASH [facility] [id number] [facility] 00:00:00 00:00:00 [facility] 2019-11-19 2019-11-19 Outpatient CAMERON [facility] [id number] [facility] 00:00:00 00:00:00 2019-11-19 2019-11-19 Outpatient CAMERON DOUGLAS [facility] [id number] [facility] 00:00:00 00:00:00 [facility] 2019-11-19 2019-11-19 Outpatient CAMERON [facility] [id number] [facility] 00:00:00 00:00:00 2019-11-19 2019-11-19 Outpatient CAMERON [facility] [id number] [facility] 00:00:00 00:00:00 Results Test Description Test Time Test Comments Results Result Comments Source Basic Metabolic Panel 2021-07-18 23:34:00 Test Item Value Reference Range Interpretation Comme nts Glucose (test code = 9875107) 157 mg/dL 65-99 H Fasting reference interval For someone without known diabetes, a glucosevalue >125 mg/dL indicates that they may havediabetes an d this should be confirmed with afollow-up test. BUN (test code = 5884318) 19 mg/dL 7-25 Creatinine (test code = 2.00 mg/dL 0.50-0.99 H For patients >49 years of age, 20130518) the reference l imitfor Creatinine is a pproximately 13% higher for peop leidentified as -Pia n. eGFR If NonAfricn Am (test 25 See_Comment L [Automated message] The system code = 2454512) which genera juan this result transmitted ref erence range: > OR = 60 mL/min/ 1.73m2. The reference range was not used to interpret this result as normal/abnormal . eGFR If Africn Am (test code 29 See_Comment L [Automated message] The system = 2929731) which generated this result transmitted ref erence range: > OR = 60 mL/min/ 1.73m2. The reference range was not used to interpret this result as normal/abnormal . BUN/Creatinine Ratio (test 10 See_Comment [Automated message] The system code = 1345377) which genera juan this result transmitted ref erence range: 6 - 22 (calc). Th e reference range was not u sed to interpret this result as normal/abnormal. Sodium (test code = 0431831) 137 mmol/L 135-146 Potassium, Serum (test code = 3.8 mmol/L 3.5-5.3 20100810) Chloride (test code = 99 mmol/L 98-547 5473656) Carbon Dioxide, Total (test 31 mmol/L 20-32 code = ) Calcium, Serum (test code = 8.8 mg/dL 8.6-10.4 20100723) Lab Interpretation (test code Abnormal = 55917-9) [facility] [id number] 23:34:00 Test Item Value Reference Range Interpretation Comments Protein, Total, Serum 7.9 g/dL 6.1-8.1 (test code = 20100730) Albumin (test code = 3.7 g/dL 3.6-5.1 ) GLOBULIN (QUEST) (test 4.2 See_Comment H [Aut omated message] code = 2377345) The system [employer] generated this result transmit juan reference range : 1.9 - 3.7 g/dL (erasmo c). The reference r madi was not used to interpret this result as normal/abnormal . Albumin Globulin Ratio 0.9 See_Comment L [Aut omated message] (test code = 1759-0) The sy tem which generated this result transmit juan reference range : 1.0 - 2.5 (calc). T he reference range was not used to interpret this result as normal/abnormal . Bilirubin, Total (test 1.3 mg/dL 0.2-1.2 H code = 5560715) Bilirubin, Direct (test 0.3 mg/dL See_Comment H [Au tomated message] code = 5110080) The system w [employer] generated this result transmit juan reference range : < OR = 0.2. The reference range was not used to interpret this result as normal/abnormal . Bilirubin, Indirect 1.0 See_Comment [Automa juan message] (test code = 2996600) The sy stem which generated this result transmit juan reference range : 0.2 - 1.2 mg/dL (ca lc). The reference r madi was not used to interpret this result as normal/abnormal . Alkaline Phosphatase, S 118 U/L 37-153 (test code = 68-6) AST (SGOT) (test code = 12 U/L 20100805) ALT (SGPT) (test code = 9 U/L 09-20) Lab Interpretation (test Abnormal code = 73337-1) [facility] with platelet count + automated [id number] 23:34:00 Test Item Value Reference Range Interpretation Comments WBC (test code = 4.2 See_Comment [Automated message] ) The system [employer] generated this result transmit juan reference range : 3.8 - 10.8 Thousand /uL. The reference r madi was not used to interpret this result as normal/abnormal . RBC (test code = 789-8) 4.46 See_Comment [Au tomated message] The system [employer] generated this result transmit juan reference range : 3.80 - 5.10 Million/uL. The reference range was not used to interpret this result as normal/abnormal . Hemoglobin (test code = 11.4 g/dL 11.7-15.5 L ) Hematocrit (test code = 36.8 % 35.0-45.0 ) MCV (test code = 82.5 fL 80.0-100.0 ) MCH (test code = 25.6 pg 27.0-33.0 L ) MCHC (test code = 31.0 g/dL 32.0-36.0 L ) RDW (test code = 15.2 % 11.0-15.0 H ) Platelets (test code = 233 See_Comment [Aut omated message] ) The system [employer] generated this result transmit juan reference range : 140 - 400 Thousand/ uL. The reference r madi was not used to interpret this result as normal/abnormal . MPV (test code = 9.4 fL 7.5-12.5 ) # Neutros (test code = 3310 See_Comment [Aut omated message] [id number]) The system [employer] generated this result transmit juan reference range : 1,500 - 7,800 cells/uL. The reference range was not used to interpret this result as normal/abnormal . # Lymphs (test code = 550 See_Comment L [Auto mated message] 731-0) The system [employer] generated this result transmit juan reference range : 850 - 3,900 cells/u L. The reference r madi was not used to interpret this result as normal/abnormal . # Monos (test code = 269 See_Comment [Autom ated message] ) The system [employer] generated this result transmit juan reference range : 200 - 950 cells/uL. The reference range was not used to interpret this result as normal/abnormal . # Eos (test code = 50 See_Comment [Automat ed message] 581-2) The system [employer] generated this result transmit juan reference range : 15 - 500 cells/uL. The reference range was not used to interpret this result as normal/abnormal . # Baso (test code = 21 See_Comment [Automa juan message] 330-7) The system Celsias generated this result transmit juan reference range : 0 - 200 cells/uL. T he reference range was not used to interpret this result as normal/abnormal . % Neutros (test code = 78.8 % ) % Lymphs (test code = 13.1 % 20191015) % Monos (test code = 6.4 % ) % Eos (test code = 1.2 % 20191013) % Baso (test code = 0.5 % 20191014) Lab Interpretation (test Abnormal code = 12927-7) [facility] Center[facility]/[id number] 23:34:00 Test Item Value Reference Range Interpretation Comments INR (test code = 1.1 Reference R madi ) 0.9-1.1Moderate -intensity Warfarin Therap y 2.0-3.0Higher-i ntensity Warfarin Therap y 3.0-4.0 PT (test code = 11.3 See_Comment For addition al information, ) please refer [email or web address] [email or web address]/fa [email or web address](Thi s link is being provided for informational/e ducational purposes only.) [Automated message] The sy stem which generated this result transmitted ref erence range: 9.0 - 11 .5 sec. The reference range was not used to interpr et this result as felicia l/abnormal. [facility] CenterTACROLIMUS2022-04-26 23:34:00 Test Item Value Reference Range Interpretation Comments Tacrolimus, Highly 5.5 mcg/L No defini tive therapeutic or Sensitive, LC/MS/MS toxic ra nges have ([facility]) (test code = beenest ablished. Optimal 20140622) blood drug leve ls are influencedby ty pe of transplant, pat ient response, time post-transplant , co-administrati on of other drugs, and drug formulation. The following t rough range is a suggested guideline: 5.0-20.0 mcg/L. This test was developed a nd its analytical perf ormance characteristics have been determined by [employer]. It has not been cleared or appr jeff by theFDA. This as say has been validated pursu ant to the CLIA regulation s and is used for clinical pu rposes. [facility]ABOLIC [id number] 14:11:14 Test Item Value Reference Range Interpretation Comments SODIUM (BEAKER) 133 meq/L 136-145 L (test code = 381) POTASSIUM (BEAKER) 4.9 meq/L 3.5-5.1 (test code = 379) CHLORIDE (BEAKER) 96 meq/L 98-107 L (test code = 382) CO2 (BEAKER) (test 30 meq/L 22-29 H code = 355) BLOOD UREA NITROGEN 38 mg/dL 7-21 H (BEAKER) (test code = 354) CREATININE (BEAKER) 3.91 mg/dL 0.57-1.25 H (test code = 358) GLUCOSE RANDOM 229 mg/dL 70-105 H (BEAKER) (test code = 652) CALCIUM (BEAKER) 8.7 mg/dL 8.4-10.2 (test code = 697) EGFR (BEAKER) (test 11 mL/min/1.73 ESTIMA JUAN GFR IS code = 1092) sq m NOT ACCURATE CREATININE CLEARANCE IN PREDICTING GLOMERULAR FILTRATION RATE . ESTIMATED GFR I S NOT APPLICABLE FOR DIALYSIS PATIEN TS. Principal Archaeologist ID - BSTacrolimus [id number] 14:07:51 Test Item Value Reference Range Interpretation Comments Tacrolimus Lvl (test 5.6 ng/mL 10.0-20.0 L Test pe rformed on code = 35540-6) [employer] Archi tect Immunoassay sys tem with Chemilumin escent Microparticle Immunoassay (CM IA) technology. BRADLY (test code = Principal Archaeologist ID - BRADLY) AAHAMID Lab Interpretation Abnormal (test code = 28196-8) [facility] CenterTACROLIMUS [id number] 14:07:51 Test Item Value Reference Range Interpretation Comments TACROLIMUS BLOOD 5.6 ng/mL 10.0-20.0 L Test perfor med on Watson (BEAKER) (test code Architec t Immunoassay = 657) system with Chemiluminescen t Microparticle I mmunoassay (CMIA) technolo gy. Principal Archaeologist ID - FZCOKIQTcbafueht3634-59-17 13:56:10 Test Item Value Reference Range Interpretation Comments Magnesium (test code = 2.2 mg/dL 1.6-2.6 54016-0) BRADLY (test code = BRADLY) Principal Archaeologist ID - BS Lab Interpretation (test Normal code = 04306-1) [facility] CenterMAGNESIUM2022-03-31 13:56:10 Test Item Value Reference Range Interpretation Comments MAGNESIUM (BEAKER) (test code = 2.2 mg/dL 1.6-2.6 627) Principal Archaeologist ID - BSHEPATIC FUNCTION [id number] 13:56:10 Test Item Value Reference Range Interpretation Comments TOTAL PROTEIN (BEAKER) (test code = 7.7 gm/dL 6.0-8.3 770) ALBUMIN (BEAKER) (test code = 1145) 3.4 g/dL 3.5-5.0 L BILIRUBIN TOTAL (BEAKER) (test code 0.9 mg/dL 0.2-1.2 = 377) BILIRUBIN DIRECT (BEAKER) (test 0.5 mg/dL 0.1-0.5 code = 706) ALKALINE PHOSPHATASE (BEAKER) (test 124 U/L 40-150 code = 346) AST (SGOT) (BEAKER) (test code = 17 U/L 5-34 353) ALT (SGPT) (BEAKER) (test code = 17 U/L 6-55 347) Principal Archaeologist ID - BSPROTHROMBIN TIME/[id number] 13:34:01 Test Item Value Reference Range Interpretation Comments PROTIME (BEAKER) 16.4 seconds 11.9-14.2 H (test code = 759) INR (BEAKER) (test 1.34 See_Comment [Automat ed message] code = 370) The system Celsias generated this result transmitted ref erence range: <=5.90. The reference range was not used to int erpret this result as normal/abnormal . RECOMMENDED COUMADIN/WARFARIN INR THERAPY RANGESSTANDARD DOSE: 2.0 - 3.0 Includes: PROPHYLAXIS for venous thrombosis, systemic embolization; TREATMENT for venous thrombosis and/or pulmonary embolus.HIGH RISK: Target INR is 2.5-3.5 for patients with mechanical heart valves.CBC with platelet count + automated [id number] 13:28:40 Test Item Value Reference Range Interpretation Comments WBC (test code = 6690-2) 3.9 See_Comment [A utomated message] The system Celsias generated this result transmitted ref erence range: 3.5 - 10 .5 K/L. The refe rence range was not u sed to interpret this result as normal/abnor mal. RBC (test code = 789-8) 4.15 See_Comment [Au tomated message] The system Celsias generated this result transmitted ref erence range: 3.93 - 5 .22 M/L. The refe rence range was not u sed to interpret this result as normal/abnor mal. MCHC (test code = 786-4) 28.4 See_Comment L [A utomated message] The system Celsias generated this result transmitted ref erence range: 32.2 - 3 5.5 GM/DL. The refe rence range was not u sed to interpret this result as normal/abnor mal. Hematocrit (test code = 37.3 % 34.1-44.9 4544-3) MCV (test code = 787-2) 89.9 fL 79.4-94.8 MCH (test code = 785-6) 25.5 pg 25.6-32.2 L RDW (test code = 788-0) 16.6 % 11.7-14.4 H Platelets (test code = 179 See_Comment [Aut omated message] 307-3) The system Celsias generated this result transmitted ref erence range: 150 - 45 0 K/CU MM. The referen ce range was not u sed to interpret this result as normal/abnor mal. MPV (test code = 9.2 fL 9.4-12.3 L 66299-5) nRBC (test code = 413) 0 See_Comment [Aut omated message] The system Celsias generated this result transmitted ref erence range: 0 - 0 /1 00 WBC. The refere nce range was not u sed to interpret this result as normal/abnor mal. % Neutros (test code = 73 % 429) % Lymphs (test code = 15 % 430) % Monos (test code = 9 % 431) % Eos (test code = 432) 2 % % Baso (test code = 437) 1 % # Neutros (test code = 2.89 See_Comment [Aut omated message] 670) The system Celsias generated this result transmitted ref erence range: 1.56 - 6 .13 K/L. The refe rence range was not u sed to interpret this result as normal/abnor mal. # Lymphs (test code = 0.59 See_Comment L [Auto mated message] 414) The system Celsias generated this result transmitted ref erence range: 1.18 - 3 .74 K/L. The refe rence range was not u sed to interpret this result as normal/abnor mal. # Monos (test code = 0.36 See_Comment [Autom ated message] 415) The system Celsias generated this result transmitted ref erence range: 0.24 - 0 .36 K/L. The refe rence range was not u sed to interpret this result as normal/abnor mal. # Eos (test code = 416) 0.07 See_Comment [Au tomated message] The system Celsias generated this result transmitted ref erence range: 0.04 - 0 .36 K/L. The refe rence range was not u sed to interpret this result as normal/abnor mal. # Baso (test code = 417) 0.02 See_Comment [A utomated message] The system Celsias generated this result transmitted ref erence range: 0.01 - 0 .08 K/L. The refe rence range was not u sed to interpret this result as normal/abnor mal. Immature 0 % 0-1 Granulocytes-Relative (test code = 2801) Lab Interpretation (test Abnormal code = 12831-5) [facility] W/PLT COUNT & AUTO [id number] 13:28:40 Test Item Value Reference Range Interpretation Comments WHITE BLOOD CELL COUNT (BEAKER) 3.9 K/ L 3.5-10.5 (test code = 775) RED BLOOD CELL COUNT (BEAKER) 4.15 M/ L 3.93-5.22 (test code = 761) HEMOGLOBIN (BEAKER) (test code = 10.6 GM/DL 11.2-15.7 L 410) HEMATOCRIT (BEAKER) (test code = 37.3 % 34.1-44.9 411) MEAN CORPUSCULAR VOLUME (BEAKER) 89.9 fL 79.4-94.8 (test code = 753) MEAN CORPUSCULAR HEMOGLOBIN 25.5 pg 25.6-32.2 L (BEAKER) (test code = 751) MEAN CORPUSCULAR HEMOGLOBIN CONC 28.4 GM/DL 32.2-35.5 L (BEAKER) (test code = 752) RED CELL DISTRIBUTION WIDTH 16.6 % 11.7-14.4 H (BEAKER) (test code = 412) PLATELET COUNT (BEAKER) (test 179 K/CU MM 150-450 code = 756) MEAN PLATELET VOLUME (BEAKER) 9.2 fL 9.4-12.3 L (test code = 754) NUCLEATED RED BLOOD CELLS 0 /100 WBC 0-0 (BEAKER) (test code = 413) NEUTROPHILS RELATIVE PERCENT 73 % (BEAKER) (test code = 429) LYMPHOCYTES RELATIVE PERCENT 15 % (BEAKER) (test code = 430) MONOCYTES RELATIVE PERCENT 9 % (BEAKER) (test code = 431) EOSINOPHILS RELATIVE PERCENT 2 % (BEAKER) (test code = 432) BASOPHILS RELATIVE PERCENT 1 % (BEAKER) (test code = 437) NEUTROPHILS ABSOLUTE COUNT 2.89 K/ L 1.56-6.13 (BEAKER) (test code = 670) LYMPHOCYTES ABSOLUTE COUNT 0.59 K/ L 1.18-3.74 L (BEAKER) (test code = 414) MONOCYTES ABSOLUTE COUNT (BEAKER) 0.36 K/ L 0.24-0.36 (test code = 415) EOSINOPHILS ABSOLUTE COUNT 0.07 K/ L 0.04-0.36 (BEAKER) (test code = 416) BASOPHILS ABSOLUTE COUNT (BEAKER) 0.02 K/ L 0.01-0.08 (test code = 417) IMMATURE GRANULOCYTES-RELATIVE 0 % 0-1 PERCENT (BEAKER) (test code = 2801) FUNGUS CULTURE + [id number] 00:53:00 Test Item Value Reference Range Interpretation Comments CULTURE (BEAKER) (test No fungus isolated in code = 1095) 28 days FUNGUS SMEAR (BEAKER) No fungi seen (test code = 1406) POC-Glucose [id number] 12:13:00 Test Item Value Reference Range Interpretation Comments POC-Glucose Meter (test 117 mg/dL 70-110 H : TE STED AT [facility] code = 1538) [address] [facility], 770 30: Principal Archaeologist/Techni leah ID = [id number] for Scott Melany mathews Lab Interpretation (test Abnormal code = 01491-5) [facility] [id number] 12:13:00 Test Item Value Reference Range Interpretation Comments POC-GLUCOSE METER 117 mg/dL 70-110 H : [facility] ([facility] (test code = [facility], 1538) [address]: Principal Archaeologist/Techni leah ID = [id number] for Emily goinsrizwanaMelany saavedrareid POCT-GLUCOSE [id number] 07:51:00 Test Item Value Reference Range Interpretation Comments POC-GLUCOSE METER 73 mg/dL 70-110 : [facility] ([facility]ER[facility] (test code = [facility], 1538) [address]: Principal Archaeologist/Techni leah ID = [id number] for Jonathan wagonerkeriThais SARS-CoV2/RT-PCR (Asymptomatic ONLY)2020-11-17 23:15:00 Test Item Value Reference Range Interpretation Comments SARS-COV2/RT-PCR (test Negative Negative code = 65633-4) BRADLY (test code = BRADLY) Negative result [...] the Act. Testing was performed using the Watson SARS-CoV-2 assay. Fact Sheet for Healthcare Providers:https://www.jose singleton/elodia/RT SARS-CoV-2 HCP Fact Sheet 51-457629.pdf Fact Sheet for Healthcare Patients:https://www.dominik russo/elodia/RT SARS-CoV-2 Patient Fact Sheet EN 51-069712G9.pdf Lab Interpretation Normal (test code = 85751-5) [facility] ([facility])2020-11-17 23:15:00 Test Item Value Reference Range Interpretation Comments SARS-COV2/RT-PCR (test code = Negative Negative 2954401) Negative result for this test determines that [...] under Section 564(g) of the Act.Testing was performed using Fifty[employer] SARS-CoV-2 assay.Fact Sheet for Healthcare Providers:https://www.[employer].Posh Eyes/elodia/RT SARS-CoV-2 HCP Fact Sheet 51- 021441.pdfFact Sheet for Healthcare Patients:https://www.[employer].Posh Eyes/elodia/RT SARS-CoV-2 Patient Fact Sheet EN 51-284579E7.pdfPOCT-GLUCOSE [id number] 21:25:00 Test Item Value Reference Range Interpretation Comments POC-GLUCOSE METER 164 mg/dL 70-110 H : TESTED A T [facility] [address] (BEAKER) (test code = [employer] [facility], 153) [address]: Principal Archaeologist/Techni leah ID = [id number] for FARAZ MEYER POCT-GLUCOSE [id number] 17:17:00 Test Item Value Reference Range Interpretation Comments POC-GLUCOSE METER 156 mg/dL 70-110 H : TESTED A T [facility] 67[address] (BEAKER) (test code = BRENDA Santiago [facility], 1538) 14609: Principal Archaeologist/Techni leah ID = [id number] for CHAUNCEY MADRIGAL NO POCT-GLUCOSE [id number] 12:00:00 Test Item Value Reference Range Interpretation Comments POC-GLUCOSE METER 135 mg/dL 70-110 H : TESTED A T [facility] 67[address] ([employer]) (test code = [facility], 1538) [address]: Principal Archaeologist/Techni leah ID = [id number] for NO PETERSON Tacrolimus [id number] 09:56:00 Test Item Value Reference Range Interpretation Comments Tacrolimus Lvl (test 7.0 ng/mL 10-20 L Test pe rformed on code = 03601-0) Watson Archi tect Immunoassay sys tem with Chemilumin escent Microparticle Immunoassay (CM IA) technology. BRADLY (test code = Principal Archaeologist ID - BRADLY) RM Lab Interpretation Abnormal (test code = 00516-8) [facility] [id number] 09:56:00 Test Item Value Reference Range Interpretation Comments TACROLIMUS BLOOD 7.0 ng/mL 10.0-20.0 L Test perfor med on Watson (BEAKER) (test code Architec t Immunoassay = 657) system with Chemiluminescen t Microparticle I mmunoassay (CMIA) technolo gy. Principal Archaeologist ID - RMPOCT-GLUCOSE [id number] 08:20:00 Test Item Value Reference Range Interpretation Comments POC-GLUCOSE METER 85 mg/dL 70-110 : TESTED A T [facility] 67[address] ([employer]) (test code = [facility] [place], 1538) 25681: Principal Archaeologist/Techni leah ID = [id number] for NO KIMBLE Basic Metabolic [id number] 06:42:00 Test Item Value Reference Range Interpretation Comments Sodium (test code = 134 meq/L 136-145 L 2951-2) Potassium (test code = 3.5 meq/L 3.5-5.1 2823-3) Chloride (test code = 99 meq/L 98-107 2075-0) CO2 (test code = 27 meq/L 22-29 8-9) BUN (test code = 13 mg/dL 7-21 3094-0) Creatinine (test code 2.36 mg/dL 0.57-1.25 H = 2160-0) Glucose (test code = 72 mg/dL 70-105 2345-7) Calcium (test code = 7.9 mg/dL 8.4-10.2 L 41999-2) EGFR (test code = 21 mL/min/1.73 [place] [address]-5) NOT ACCURATE CREATININE CLEARANCE IN PREDICTING GLOMERULAR FILTRATION RATE . ESTIMATED GFR I S NOT APPLICABLE FOR DIALYSIS PATIENTS. BRADLY (test code = BRADLY) Principal Archaeologist MILE [place] Lab Interpretation Abnormal (test code = 20725-2) [facility] CenterBASI METABOLIC [id number] 06:42:00 Test Item Value Reference Range Interpretation [...] S NOT APPLICABLE FOR DIALYSIS PATIEN TS. Principal Archaeologist MILE [place] MCBC with platelet count + automated [id number] 05:48:00 Test Item Value Reference Range Interpretation Comments WBC (test code = 6690-2) 4.8 See_Comment [A utomated message] The system Celsias generated this result transmitted ref erence range: 3.5 - 10 .5 K/L. The refe rence range was not u sed to interpret this result as normal/abnor mal. RBC (test code = 789-8) 3.18 See_Comment L [Au tomated message] The system Celsias generated this result transmitted ref erence range: 3.93 - 5 .22 M/L. The refe rence range was not u sed to interpret this result as normal/abnor mal. MCHC (test code = 786-4) 30.5 See_Comment L [A utomated message] The system Celsias generated this result transmitted ref erence range: [...] See_Comment [Aut omated message] 777-3) The system Celsias generated this result transmitted ref erence range: 150 - 45 0 K/CU MM. The referen ce range was not u sed to interpret this result as normal/abnor mal. MPV (test code = 8.3 fL 9.4-12.3 L 62279-7) nRBC (test code = 413) 0 See_Comment [Aut omated message] The system Celsias generated this result transmitted ref erence range: [...] See_Comment [Aut omated message] 670) The system Celsias generated this result transmitted ref erence range: 1.56 - 6 .13 K/L. The refe rence range was not u sed to interpret this result as normal/abnor mal. # Lymphs (test code = 0.88 See_Comment L [Auto mated message] 414) The system Celsias generated this result transmitted ref erence range: 1.18 - 3 .74 K/L. The refe rence range was not u sed to interpret this result as normal/abnor mal. # Monos (test code = 0.54 See_Comment H [Autom ated message] 415) The system Celsias generated this result transmitted ref erence range: 0.24 - 0 .36 K/L. The refe rence range was not u sed to interpret this result as normal/abnor mal. # Eos (test code = 416) 0.11 See_Comment [Au tomated message] The system Celsias generated this result transmitted ref erence range: 0.04 - 0 .36 K/L. The refe rence range was not u sed to interpret this result as normal/abnor mal. # Baso (test code = 417) 0.04 See_Comment [A utomated message] The system Celsias generated this result transmitted ref erence range: 0.01 - 0 .08 K/L. The refe rence range was not u sed to interpret this result as normal/abnor mal. Immature 1 % 0-1 Granulocytes-Relative (test code = 2801) Lab Interpretation (test Abnormal code = 55035-1) [facility] W/PLT COUNT & AUTO [id number] 05:48:00 Test Item Value Reference Range Interpretation [...] PERCENT (BEAKER) (test code = 2801) POCT-GLUCOSE [id number] 17:30:00 Test Item Value Reference Range Interpretation Comments POC-GLUCOSE METER 184 mg/dL 70-110 H : TESTED A T [facility] 6720 (BEAKER) (test code = BRENDA Santiago [facility], 1538) [address]: Principal Archaeologist/Techni leah ID = [id number] for TO NO MADRIGAL POCT-GLUCOSE [id number] 13:38:00 Test Item Value Reference Range Interpretation Comments POC-GLUCOSE METER 188 mg/dL 70-110 H : TESTED A T [facility] [address] (BEAKER) (test code = [facility] Jack [facility], 1538) [address]: Principal Archaeologist/Techni leah ID = [id number] for TO NO MADRIGAL HEMODIALYSIS [id number] 11:45:00Rm Agrawal RN 11/16/2020 11:45 AM Pt dialyzed for 4 hra via left upper arm AVF. Tolerated treatment well, NET UF= 2 Liters as ordered. VS stable post HD, report off to floor nurse Cortney VALLADARES. Transferred back to her room via stretcher. Lab Results Component Value Date WBC 5.6 11/15/2020 HGB 8.4 (L)11/15/2020 HCT 27.5 (L) 11/15/2020 MCV 86.5 11/15/2020 PLT 273 11/15/2020 Lab Results Component Value Date HEPBSAG Nonreactive 11/05/2020 Lab Results Component Value Date HEPAIGM Nonreactive 09/06/2018 HEPBIGM Nonreactive 09/06/2018 HEPBCAB Nonreactive 09/06/2018 HEPCAB Reactive (A) 09/06/2018 Lab Results Component Value Date HIV1X2 Nonreactive 09/30/2014 Lab Results Component Value Date GLUCOSE 120 (H) 11/15/2020 CALCIUM 7.9 (L) 11/15/2020 NA 134 (L) 11/15/2020 K 3.6 11/15/2020 CO2 29 11/15/2020 CL100 11/15/2020 BUN 15 11/15/2020 CREATININE 2.29 (H) 11/15/2020 Coag Profile: Protime Date Value RefRange Status 11/13/2020 13.7 11.9 - 14.2 seconds Final INR Date Value Ref Range Status 11/13/2020 1.07 <=5.90 Final PTT Date Value Ref Range Status 11/09/2020 39.0 (H) 22.5 - 36.0 seconds [facility]CH[facility] [id number] 21:15:00 Test Item Value Reference Range Interpretation Comments POC-GLUCOSE METER 168 mg/dL 70-110 H : TESTED A T [facility] 67[address] ([employer]) (test code = BRENDA Santiago [facility], 1538) 12[address]: Principal Archaeologist/Techni leah ID = [id number] for Diego James POCT-GLUCOSE [id number] 18:43:00 Test Item Value Reference Range Interpretation Comments POC-GLUCOSE METER 164 mg/dL 70-110 H : TESTED A T [facility] 67[address] (BEAKER) (test code [facility], = 1538) [address]: Principal Archaeologist/Techni leah ID = [id number] for Yolnada Chairez TACROLIMUS [id number] 12:56:00 Test Item Value Reference Range Interpretation Comments TACROLIMUS BLOOD 6.0 ng/mL 10.0-20.0 L Test perfor med on Watson (BEAKER) (test code Architec t Immunoassay = 657) system with Chemiluminescen t Microparticle I mmunoassay (CMIA) technolo chance. Principal Archaeologist ID - AAHAMIDPOCT-GLUCOSE [id number] 11:40:00 Test Item Value Reference Range Interpretation Comments POC-GLUCOSE METER 175 mg/dL 70-110 H : TESTED A T [facility] 67[address] (BEAKER) (test code = [facility] [employer] [facility], 1538) [address]: Principal Archaeologist/Techni leah ID = [id number] for CARITO CROOKS BASIC METABOLIC [id number] 08:11:00 Test Item Value Reference Range Interpretation [...] S NOT APPLICABLE FOR DIALYSIS PATIEN TS. Principal Archaeologist ID - PIAYA LPOCT-GLUCOSE [id number] 08:06:00 Test Item Value Reference Range Interpretation Comments POC-GLUCOSE METER 103 mg/dL 70-110 : TESTED A T [facility] 6720 (BEAKER) (test code = [employer] [place], 1538) [address]: Principal Archaeologist/Techni leah ID = [id number] for CARITO CROOKS CBC W/PLT COUNT & AUTO [id number] 06:44:00 Test Item Value Reference Range Interpretation [...] (test code = 416) BASOPHILS ABSOLUTE COUNT ([facility]) 0.04 K/ L 0.01-0.08 (test code = 417) IMMATURE GRANULOCYTES-RELATIVE 2 % 0-1 H PERCENT (AKER) (test code = 2801) POCT-GLUCOSE [id number] 13:28:00 Test Item Value Reference Range Interpretation Comments POC-GLUCOSE METER 143 mg/dL 70-110 H : TESTED A T [facility] 6720 ([facility]) (test code [facility], = 1538) [address]: Principal Archaeologist/Techni leah ID = [id number] for Yolanda Chairez POCT-GLUCOSE [id number] 08:37:00 Test Item Value Reference Range Interpretation Comments POC-GLUCOSE METER 132 mg/dL 70-110 H : TESTED A T [facility] 6720 ([facility]) (test code = [facility], 1538) 09[address]: Principal Archaeologist/Techni leah ID = [id number] for Renetta Valencia POCT-GLUCOSE [id number] 19:49:00 Test Item Value Reference Range Interpretation Comments POC-GLUCOSE METER 230 mg/dL 70-110 H : TESTED A T [facility] 6720 ([facility]) (test code = [facility], 1538) 07286: Principal Archaeologist/Techni leah ID = [id number] for MEAGAN LAMA, ADA POCT-GLUCOSE [id number] 17:35:00 Test Item Value Reference Range Interpretation Comments POC-GLUCOSE METER 228 mg/dL 70-110 H : TESTED A T [facility] 6720 ([facility]) (test code [facility], = 1538) 35992: Principal Archaeologist/Techni leah ID = [id number] for Jennifer Chairezbeth Manual [id number] 12:40:00 Test Item Value Reference Range Interpretation Comments % Neutros (test code = 82 % 2815) % Lymphs (test code = 12 % 2816) % Monos (test code = 2 % 2817) % Eos (test code = 2819) 2 % % Metamyelo (test code = 1 % 0-0 H 2820) % Myelo (test code = 1 % 0-0 H 2821) # Neutros (test code = 4.43 K/ul [...] = 3438) BRADLY (test code = BRADLY) Principal Archaeologist ID - Kalani OverholtUser comments: Slide comments: Lab Interpretation (test Abnormal code = 75805-8) [facility] W/PLT COUNT & AUTO [id number] 12:40:00 Test Item Value Reference Range Interpretation [...] CONCENTRATION Adequate (CELLAVISION)(BEAKER) (test code = 3438) Principal Archaeologist ID - Kalani OverholtUser comments: Slide comments:POCT-GLUCOSE METER 2020-11-13 11:56:00 Test Item Value Reference Range Interpretation Comments POC-GLUCOSE METER 167 mg/dL 70-110 H : TESTED A T [facility] [address] (BEAKER) (test code = [facility], 1538) 87674: Principal Archaeologist/Techni leah ID = [id number] for DA VIS, DELILAH TACROLIMUS [id number] 10:28:00 Test Item Value Reference Range Interpretation Comments TACROLIMUS BLOOD 4.7 ng/mL 10.0-20.0 L Test perfor med on Watson (BEAKER) (test code Architec t Immunoassay = 657) system with Chemiluminescen t Microparticle I mmunoassay (CMIA) technolo chance. Principal Archaeologist ID - AAHAMIDPOCT-GLUCOSE [id number] 09:03:00 Test Item Value Reference Range Interpretation Comments POC-GLUCOSE METER 117 mg/dL 70-110 H : TESTED A T [facility] 6720 (BEAKER) (test code = [facility], 1538) [address]: Principal Archaeologist/Techni leah ID = [id number] for DA VIS, DELILAH BASIC METABOLIC [id number] 07:59:00 Test Item Value Reference Range Interpretation [...] S NOT APPLICABLE FOR DIALYSIS PATIEN TS. Principal Archaeologist ID - KIRBY WProthrombin time/[id number] 07:03:00 Test Item Value Reference Interpretation Comments Range Protime (test code = 13.7 See_Comment [Autom ated 3672-2) message] The system which generated this result transmitted reference range : 11.9 - 14.2 seconds. The reference range was not used to interpret this result as normal/abnormal . INR (test code = 1.07 See_Comment [Automated 0891-6) message] The system which generated this result [...] valves. Lab Interpretation Normal (test code = 82806-9) [facility] CenterPROTHROMBIN [facility]/[id number] 07:03:00 Test Item Value Reference Range Interpretation Comments PROTIME (BEAKER) 13.7 seconds 11.9-14.2 (test code = 759) INR (BEAKER) (test 1.07 See_Comment [Automat ed message] code = 370) The system [employer] generated this result transmitted ref erence range: <=5.90. The reference range was not used to int erpret this result as normal/abnormal . RECOMMENDED COUMADIN/WARFARIN INR THERAPY RANGESSTANDARD DOSE: 2.0 - 3.0 Includes: PROPHYLAXIS for venous thrombosis, systemic embolization; TREATMENT for venous thrombosis and/or pulmonary embolus.HIGH RISK: Target INR is 2.5-3.5 for patients with mechanical heart valves.POCT-GLUCOSE [id number] 17:20:00 Test Item Value Reference Range Interpretation Comments POC-GLUCOSE METER 183 mg/dL 70-110 H : TESTED A T [facility] 6720 (BEAKER) (test code = [facility], 1538) 89441: Principal Archaeologist/Techni leah ID = [id number] for DA VIS, DELILAH POCT-GLUCOSE [id number] 12:30:00 Test Item Value Reference Range Interpretation Comments POC-GLUCOSE METER 127 mg/dL 70-110 H : TESTED A T [facility] 6720 (BEAKER) (test code = [facility], 1538) 92323: Principal Archaeologist/Techni leah ID = [id number] for DA VIS, DELILAH (CELLAVISION MANUAL DIFF)2020-11-12 10:32:00 Test Item Value [...] K/uL 0.00-0.00 H (CELLAVISION)(BEAKER) (test code = 2858) TOTAL COUNTED (BEAKER) (test code = 100 [...] CONCENTRATION Adequate (CELLAVISION)(BEAKER) (test code = 3438) Principal Archaeologist ID - Virgie Kellogg comments: Slide comments:CBC W/PLT COUNT & AUTO [id number] 10:31:00 Test Item Value Reference Range Interpretation [...] 0-0 (BEAKER) (test code = 413) TACROLIMUS [id number] 09:12:00 Test Item Value Reference Range Interpretation Comments TACROLIMUS BLOOD 3.3 ng/mL 10.0-20.0 L Test perfor med on Watson (BEAKER) (test code Architec t Immunoassay = 657) system with Chemiluminescen t Microparticle I mmunoassay (CMIA) technolo gy. Principal Archaeologist ID - AAHAMIDPOCT-GLUCOSE [id number] 09:02:00 Test Item Value Reference Range Interpretation Comments POC-GLUCOSE METER 153 mg/dL 70-110 H : TESTED A T [facility] 6720 (BEAKER) (test code = [facility] [place], 1538) [address]: Principal Archaeologist/Techni leah ID = [id number] for DA VIS, DELILAH PROTHROMBIN TIME/[id number] 06:19:00 Test Item Value Reference Range Interpretation Comments PROTIME (BEAKER) 13.7 seconds 11.9-14.2 (test code = 759) INR (BEAKER) (test 1.07 See_Comment [Automat ed message] code = 370) The system [employer] generated this result transmitted ref erence range: <=5.90. The reference range was not used to int erpret this result as normal/abnormal . RECOMMENDED COUMADIN/WARFARIN INR THERAPY RANGESSTANDARD DOSE: 2.0 - 3.0 Includes: PROPHYLAXIS for venous thrombosis, systemic embolization; TREATMENT for venous thrombosis and/or pulmonary embolus.HIGH RISK: Target INR is 2.5-3.5 for patients with mechanical heart valves.BASIC METABOLIC [id number] 06:12:00 Test Item Value Reference Range Interpretation [...] 358) GLUCOSE RANDOM 122 mg/dL 70-105 H (BEAKER) (test code = 652) CALCIUM (BEAKER) 7.9 mg/dL 8.4-10.2 L (test code = 697) EGFR (BEAKER) (test 21 mL/min/1.73 ESTIMA JUAN GFR IS code = 1092) sq m NOT ACCURATE CREATININE CLEARANCE IN PREDICTING GLOMERULAR FILTRATION RATE . ESTIMATED GFR I S NOT APPLICABLE FOR DIALYSIS PATIEN TS. Principal Archaeologist ID - JAYLEN MPOCT-GLUCOSE [id number] 11:24:00 Test Item Value Reference Range Interpretation Comments POC-GLUCOSE METER 145 mg/dL 70-110 H : TESTED A T [facility] 6720 ([employer]) (test code = [facility], 1538) 787[address]: Principal Archaeologist/Techni leah ID = [id number] for Mu sic, Asima TACROLIMUS [id number] 08:47:00 Test Item Value Reference Range Interpretation Comments TACROLIMUS BLOOD 5.1 ng/mL 10.0-20.0 L Test perfor med on Watson (BEAKER) (test code Architec t Immunoassay = 657) system with Chemiluminescen t Microparticle I mmunoassay (CMIA) technolo gy. Principal Archaeologist ID - AAHAMIDPOCT-GLUCOSE [id number] 07:53:00 Test Item Value Reference Range Interpretation Comments POC-GLUCOSE METER 123 mg/dL 70-110 H : TESTED A T [facility] 6720 (BEVirtualQube) (test code = [facility], 1538) [address]: Principal Archaeologist/Techni leah ID = [id number] for Mu sic, Asima CBC W/PLT COUNT & AUTO [id number] 07:30:00 Test Item Value Reference Range Interpretation Comments WHITE BLOOD CELL COUNT (BEAKER) 4.0 K/ L 3.5-10.5 (test code = 775) RED BLOOD CELL COUNT (BEAKER) 3.13 M/ L 3.93-5.22 L (test code = 761) HEMOGLOBIN (BEAKER) (test code = 8.3 GM/DL 11.2-15.7 L 410) HEMATOCRIT (BEAKER) (test code = 27.7 % 34.1-44.9 L [...] K/uL 0.00-0.00 H (CELLAVISION)(BEAKER) (test code = 2858) TOTAL COUNTED (BEAKER) (test code 100 = [...] CONCENTRATION Adequate (CELLAVISION)(BEAKER) (test code = 3438) Principal Archaeologist ID - Kalani OverholtUser comments: Slide comments:BASIC [...] S NOT APPLICABLE FOR DIALYSIS PATIEN TS. Principal Archaeologist ID - EMERSONPROTHROMBIN TIME/[id number] 06:17:00 Test Item Value Reference Range Interpretation Comments PROTIME (BEAKER) 13.9 seconds 11.9-14.2 (test code = 759) INR (BEAKER) (test 1.09 See_Comment [Automat ed message] code = 370) The system [employer] generated this result transmitted ref erence range: [...] recovery and/or detection times of some organisms. [facility] CenterBLOOD [id number] 14:01:00 Test Item Value Reference Range Interpretation Comments CULTURE (BEAKER) (test No growth in 5 days code = 1095) The specimen volume collected for this blood culture was below the optimum (10 mL per bottle or 20 mL total). Use of lower volumes may adversely affect recovery and/or detection times of some organisms.BLOOD [id number] 14:01:00 Test Item Value Reference Range Interpretation Comments CULTURE (BEAKER) (test No growth in 5 days code = 1095) TACROLIMUS [id number] 08:28:00 Test Item Value Reference Range Interpretation Comments TACROLIMUS BLOOD 4.9 ng/mL 10.0-20.0 L Test perfor med on Watson (BEAKER) (test code Architec t Immunoassay = 657) system with Chemiluminescen t Microparticle I mmunoassay (CMIA) technolo gy. Principal Archaeologist ID - AAHAMIDHemoglobin [id number] 07:39:00 Test Item Value Reference Range Interpretation Comments Hemoglobin A1C (test code = 4548-4) 6.2 % 4.3-6.1 H Lab Interpretation (test code = Abnormal 37668-8) [facility] CenterHEMOGLOBIN [id number] 07:39:00 Test Item Value Reference Range Interpretation Comments HEMOGLOBIN A1C (BEAKER) (test code = 6.2 % 4.3-6.1 H 368) POCT-GLUCOSE [id number] 07:33:00 Test Item Value Reference Range Interpretation Comments POC-GLUCOSE METER 153 mg/dL 70-110 H : TESTED A T [facility] 6720 (BEAKER) (test code = [place], 1538) [address]: Principal Archaeologist/Techni leah ID = [id number] for Thais Guzmán BASIC METABOLIC [id number] 06:49:00 Test Item Value Reference Range Interpretation [...] S NOT APPLICABLE FOR DIALYSIS PATIEN TS. Principal Archaeologist ID - JAYLEN MPROTHROMBIN TIME/[id number] 06:02:00 Test Item Value Reference Range Interpretation Comments PROTIME (BEAKER) 14.4 seconds 11.9-14.2 H (test code = 759) INR (BEAKER) (test 1.14 See_Comment [Automat ed message] code = 370) The system [employer] generated this result transmitted ref erence range: <=5.90. The reference range was not used to int erpret this result as normal/abnormal . RECOMMENDED COUMADIN/WARFARIN INR THERAPY RANGESSTANDARD DOSE: 2.0 - 3.0 Includes: PROPHYLAXIS for venous thrombosis, systemic embolization; TREATMENT for venous thrombosis and/or pulmonary embolus.HIGH RISK: Target INR is 2.5-3.5 for patients with mechanical heart valves.CBC W/PLT COUNT & AUTO [id number] 05:47:00 Test Item Value Reference Range Interpretation [...] PERCENT (BEAKER) (test code = 2801) POCT-GLUCOSE [id number] 22:28:00 Test Item Value Reference Range Interpretation Comments POC-GLUCOSE METER 220 mg/dL 70-110 H : TESTED A T [facility] 6720 (BEAKER) (test code = [facility] [place], 1538) 228[address]: Principal Archaeologist/Techni leah ID = [id number] for VINICIO TORRES Tissue [id number] 13:34:00 Test Item Value Reference Range Interpretation Comments Case Report (test code Surgical Pathology = 104) Report Case: [id number] Authorizing Provider: Madelyn Segal MD Collected: 11/04/2020 12:35 PM Ordering Location: [facility] Received: 11/04/2020 03:25 PM SERVICES Pathologist: Donnie Otoole MD Specimen: Large Intestine, Colon - Right/Ascending, Right Colon with Appendix DIAGNOSIS (test code = e4apaPYgMMGjd5rnATZemAG 3220) uZzEwMzNcZnRuYmpcdWMxIH tccnRmMVxlcGljOTIwMlxhb jAgOFLcvFOxD2TvwdtvARls RP1mXD4gxXmwyBHdsTVmSSM nIeMas8vpn864iVRnw6rjOU AUbikepWp2kFrwX72ls1O8Y zqoP92bpHRpNKicmMOtjloc mvHvURFYTW2FFDVOTJoQUKl cUNPHCVnTMXkqJBbPIA1vYE 5EIEFQUEVORElYLCBSSUdIV BRGWJ4SW58XRVRXQ97LAMgG CAgrCCSEXO7HAJLFV43RFYs kfZGpZQ9pSHUrMHHTTnPPBE JPYYNBACYXO6PFBocaQ7LZW B9vnQNmJP7iEUIqQBvDYX2B VREJIL3WO68GFOccObMCMm5 ZATWaAH7YAYQTDv8MGJaeTQ tXWDLBK5UDGItLEeRQD1iPA lxwYXIgLSAgICBBUFBFTkRJ VRMVUVWCFS2XJOHXGMpSC6I USUMgQUxURVJBVElPTlxwYX NfCUPsURKXV9oTYcQDDRQSJ N7bRvtZHkfQPHIycbYdWOVr MAgPVJBJKV2HPdkBOhJDYZB QPTDTP5SWHX0PS37MJBmiIe EKHv1YNRBclHCxZQ9oTYHnE 2PBNI1jQPuOTYykEd2KQDRk P1lQTLVNGVFISAaESLHQBIW DV3JPNJyvEiaqBMTdhiHmSX GfDYSLBUJSM62VRC2LMMDtt r06HDI6YfKpj2J6MBX4MFOz IPTjv7bkKUGlfZMoFqLsXrK cZnRuYmpcdWMxXGRlZmYwe1 mbq301oNRkg0bkULIcJtR5k XIyUYRhkMPeU307TOFmMVuk l6rxr8OtHBKjfYPun7C7EVP ZkzoctIb4cHkxW78rb2F7Uw fgI6uuOHMjWMRhP3DkLL4mQ ODyEtm9EHJ0QPA9MVWgGKFq Q7CoMM1iTYPbkYOfSMp0g4x enPqtDFOvMMO0o9zjXKxagz ZhJZ2kjp8tsCq8x4nqnaNiZ PHsIJJjlDZQVSTdY7RorFmm Jd0vhTt6pDidEvbnKFE8Wwp 2SY9cre70mnp1xVfiAFUqyt svInV6PJceIHBswxjnEYc4J IeoJBWhbQC0TUWkeXPfB2Xn ORFuFM5amyi8FHF9KZgzWDV tIpO4HGRdkNWvFRFkfJssZG uks119DTF9ZyLpKV1vP3Jnz 5I5cX4msHAiZWWorCLmOlTi SJOajj1cyPYdUVlxk8FnNOU 0dtE5hZZtmDYzTYNpUxV6TS ffNS7hsc31NTZxJJN2po9vr RYleVkkcvKgcVZwZInwN4Ba IXZds399FBKbA1JmXPSrh8L 7lbLzGdPkWQFncIK9qhS1TY TtTD1vwwigr5swFOkuQLtcY BFcgvM0urT5OAJipBKoJ1Kz rR0dIUPmCY9lcxbnl4zyWNL 9QEfeFBRrATC7YnWiVATgq1 Xreqz4TyLkf5XiaKHiPQehK 00lg658CUIztqCtJ0dauDGg wnhhpEOpzbtjEMztcuD5PJE dQAnpxqblDWEgBWedC8vgTx UiYTRiuHszQMnqj7ZpBNAbQ SFgTfVuiANfDOKjLsc0WDZj lNNcVOVaEvUbU7wityhpAtP PIEGkl1zmS2jndHBYdJLrI3 QgUGhvbmUgTGluZTogODMyL HA2GU93SLmnFCIdkh55 COMMENT (test code = t2hdaCOdJVGjyVI4KcXsJAA 3358) wz2kqo8JezGIdrHVgYVutcV GcfjVyhj31kZT5gO46AU3kH ECyQbK4RCNmylL1Cpr3CIHc LWSzwJIsA830j3guv6eavzI kpKQ2mJnyOEDsDFHdCMwsIA DpOuSrFv0cuYail90zgSGsy hW1VHNtjGwhaXpuZLcgWWMk QO3zUMmkPTE2 CPT Code(s) (test code s5xieMWpOPBleVI5PgKtTPZ = 3357) za0qxi6WsiVXxnRTrTBpjiI TsctGdpy77kRO2hY19WI0oS IOpXdW6QRPlqaO4Rst7CHLz FKThxQNeW117w3pmy2pktvE qvJI5fSxzMFWnXCCuDXpnQZ ZzMjAgODgzMDdccGFyfQ== CLINICAL HISTORY (test f1zbfDHiEYEhmTA6KiXaPNI code = 3356) ub6odf6IjcVQjvGPsNPykfQ YxfkLsyg50kFI4uK43LZ9kK WSeAkD0NUBhomO9Yhb3AXYf YOInnMHdF426o9swg0ijwnU aqSQ9eJlcREAwQBWqMDnzDL KbPcRbHHEsn95tciFmSGJph U4cfSJixU== SPECIMEN SOURCE (test q1fcpVCvPBEpzVF8IhAqIXW code = 3377) uc0uhq1QbkFHrbVTsVMscdM TehmNevi47vVJ9pQ16PM9nP UDxViY7EJTzgxL8Nbu2TEIf XUNmjEQpW750r1fbt4lnpkK dcRW9uWhdKCWqIHZhVHodQW OtWeFzAJEhLN7lvE5lMZIfn D8xULTjjj1= GROSS DESCRIPTION k5srqCChYPSauZOyAxGhPND (test code = 3366) wZUEtf3weOKLrzRZdZlExPc NcZnRuYmpcdWMxXGRlZmYwe 7jrj919iISeh7nuOQJsCcQ1 aOHnCZIpnBXkN327EZCzTKi sg9dud2QtXXHpzLHfz1G3PX ARmiplwMj8lSxkL38kk9H2L iqpG3qmFZOyISOoV5ZlEI1o NLQeBlc6GDT5EWX9ERQeSBZ iY5WiUR8iUYJneAOkRSl5u3 prmDknFJUuKYH9n2pqANowh kOnHJ0elk8jqOe8e6eifkSu RAAoDNVfaJMMVRErN0EdzPk mQv3irBk5tGngQugqSHG3Xk j0ME3dyn85eqw6jVkxVWXmn yuhXmU1ZUajRDCeismrHNt6 MFxtYXJnbDcyMFxtYXJncjc yMFxtYXJndDcyMFxtYXJnYj jaHMlhFJOsTRA9CVete179A MI4DJvjj4wjg3tiwFMhNlu2 WANqWhWpDiqeKLloi6Ssu4g lOSDdmw5zTAG5yTFcnStaq3 Z2rLInRXVabZCwxqAvUWPpC vK4EMncJO4ehq24HOJlSYQ6 jr2lvZOskOlbjaRzvHWjNFt uN3GyTEZcp744REEgB6TaOW Vfc9M6jnVzJvNpKBDqlLK0j cH8QYHcCEn3dGByhcK5lyRe mLXqH1kbsP75EuOhoMYlV7B weS64FeFfyKNiN7MxyC06It TklMYjN4MyqR42IeXhqJLpM NGelXYpKo2bwPPteMTaq3Gy jJImUUwcM35cc067FEYlhrU dP7cxmTHqwgomzKWoqmsdVE lrgxP3KOHvORGhDGvxKNBqL GZzMjBcbGFuZzEwMzNcaGlj nPogTFzsIpIuUBFqGVzqR0o cZjFcZnMyMCBSZWNlaXZlZC BmcmVzaCBsYWJlbGVkIHRoZ TViZTOsMO62K9EqgzQfHLxy OQRfHQSmfU4aQD58sEMbxbV jebBaGpBoC8n7NSKgrT1gAX bmqSdpIBDjVJ8buJahPGxsI NJwCZJoVONvtJDyvcHtJA1n jKgdXqyhZN7cOCudWUBbbAS eipYlzCQpKWCxgzLct0cbjr G0tWLlEUZeBGQjAHOqPMGin XMqRwPnhEDkB7imZSYfEOEp E38qgBLsXaL1JFBzGUGxGOW jaQMjjuSrNC7zcNfjMuipIi 2dFBUoLAquHREuYK8bkKTmL KPndo6purMhVItvVVPrPNIx bgLwXSY9MdLlA61tpL4zsFY oA7LfAQO2EKUoDIVqeRVjme VdiDDsNUOyvwXpcy5ql3y0R HVucmVtYXJrYWJsZSBhcHBl waWfzC2ktXGrEYRwtzYRhHC ei1Zps2AlYJxbQIC2zyPsOV 5dmT4gYGSmavEna64roxWrq Sq6SJZ9amXlK8RrQFT2FZ99 hDGvtWchNUCknGBqdF9voaL ewmEfGOhgzWdytQTsYZN2Qg AhpGV8BhXwN64zKKUhm8bvW 3LyQQ9pJMLnDHNpwQS5wRGu C2SasT8pw3x3yKVtODO2lVL bHM6dTXZyOBLbnIAzsJ7nai YwirRvxYZyHZZmlO2dvnI4X ATrVFEfXFH6XdWyC49gGSRb KWFcRzWaeaXpdv9goCYlwmi xwsOtry75mTWpeLHqu9QjIE K4XJUxDQSsZIE7iDhofKjnl 5UuA4KzZVFhlVDaIWZbDBEf a2ZoyyHfqbofE26hx88nyGr dgWDntiD3JuXoS05tOoOsnW Y8wOLauYPjvZovTUmaoBPgQ 8opVDAoAEDrCb7tNUBjRVQd n37zqKrfQXDzf4FgvFSeZZN ekV2qJBQLtWFlLDXaouYoLV XgTTU7RXOlENTmtKDmshWxS P9tBQCsSJR6ZF3wXTocSr8e SVpljZAvOX7cnsWaEYrvJtR wsVJry9SbCESezMjxSYHjp8 JnpGGrc8JmapKsflomM07kt 64ouHxrwHLxnoLdZc1rSHMf VKRdf03vdGttBPDxv9elxHU yRT9ftmewloKhzsKuAi84EH RlRPXjg89auZzjLFAfb5Yoc WNuZQQhcB4hRIZVQPL0pO8r eN1tLWAlaoUtrEVdFFY7XUr iTMLrmellayxziI6olTrlS6 gcSOAqBEOem43pLU4dQGEkC qQziR3dOO2yPEDvd7IgUEKb TYfbt6tkssIip2PlwCYpLb4 hARMvb99tDTUkNJOmdg8kd8 v0GKDwqCLhQ8qdyPIvCfVuC 6HgcUvnpuvqCoZyCsA8jVQt qTVoKG13MRK8JGWyboNtyKE wBu6rWCbiSXPoADUqp4XhgU Uae6IlyTUvDQ4uDHAedm4dW gcaNADbSC5sdKCghy6tj9j6 HWQemWEuA3gioHRzBkYjSgB djrIgRO19HSPxbgDwn4PlwK ghjqDsUICkMFT8Xs7hfYPyF SZiffFem1wjy0qeHpeaPBAt uUHlSRYtB0Lit77lW79mHRr wYXIgQTEtcHJveGltYWwgYW 3zOGUcz6NzoNPui0ekjARoA DJduZ5jTZUpAKAxP0ZqhBWg OTCgEIY9zEZjBCAlTWMaMJJ pcAIoCSL0sHytAVVjURDsH4 FanX7avJZxVJA8UAmrYU6zM YRwpYW6AGe6AOfkRPQoCARl djClts66kMZyDKThDW6bxR0 xHHEssO3pEJ92P24dIAtcAF CeSECaLDosrCJyg2ArvIRrh ZVmAUXiEL2ecG4bYMNjbB0i VA10X34rVZuvyY4gcBBnUSB rlDiwSOQ3FQXpodNFIWdhXP RmJK1wrTqzuHQuYKYxBIAaa QGhOH52TKXyWcVjENHasY4i qOAqMUGnTOCfqXPhp1QqdBN rnNAclWNuTX99NEFjZdYfCF SxcACkRJRzTPNhNOFpe7Gmw VZxBPMnjF0uoPShj1GoMDYt sDChI5CuFJhcQCZeTTRtEd4 qHUWjf4IpRxmbPOr2aXLoBL 0pILLdJLCxh5LofMScSHQld kOSQSD1NBUrzC5ov3axwAVv mHqcnIktny4wINRayFUlYPY ylbNSeFoejoPTuxr5JGmpIT MsIFBBLCBIVCAoQVNDUClcc GFyfQ== MICROSCOPIC t4jzeHVaOQBgpFQ7WyCjVCF DESCRIPTION (test code pv7ctr5IxnQQdlBKnWWoegX = 3371) KhdbHfum02aXN4pY45UE7gO VTxBsH1MXTuxgY8Ouu0NWTe TFQmuWWrT788f7xps4hxnpX ocQF7qKzjZABxCFTsFYyuKF IsOwIoKIPkUf6ozAUiNbebV XJ9 Gross assessment was [facility] performed at ([facility], code = 2777) Department of Pathology, [address] [place] [address] [place] [address], Technical component [facility] . Bud's was performed at ([facility], code = 2778) Department of Pathology, [address] [place] [address], Professional component [facility]'s was performed at ([facility], code = 2779) Department of Pathology, [address] [place] [address], [facility] Center[facility]UE [id number] 13:34:00Surgical Pathology Report Case: [id number] Authorizing Provider: Madelyn Segal MD Collected: 11/04/2020 12:35 PM Ordering Location: [facility] Received: 11/04/2020 03:25 PM SERVICES [...] SEE COMMENT Signing Pathologist Direct Phone Line: [phone] signed by Donnie Otoole MD on 11/09/2020 at 1:34 PMNo thrombi or vasculitis is seen. 50185rmmuzvngt painAscending colonReceived fresh labeled the patient's name, accession number and "right colon with appendix" is a 45.0 cm in length by 4.0- 9.5 cm in diameter colon with up to 1.5 cm of attached pericolic fat, a 3.5 cm in length by 3.0 cm in diameter terminal ileum, and a 8.0 cm in length by 0.5 cm in diameter grossly unremarkable appendix.The serosa is purple-pink, predominantly surfaced by multiple adhesions and displays a 7.5 x 9.5 cm dusky green area at the cecum with a suture. The specimen is opened to reveal an 18.0 cm area of green-black, necrotic mucosa at the cecum, ileocecal valve and ascend ing colon that is 6.0 cm from the proximal margin and 22.0 cm from the distal margin. There is a 5.5x 1.5 cm area of flattened, focally hemorrhagic mucosa at the distal ascending colon that is 37.0 cmfrom the proximal margin and 2.5 cm from the distal margin. Sectioning reveals a wall ranging in thickness from 0.1- 0.2 cm. No discrete lesions or perforations are grossly appreciated. Sectioning of the mesentery reveals focal areas of hemorrhage. Thrombi are not grossly appreciated. Merchandise Collector sections are submitted as follows:Section codeA1- proximal and distal bowel margins en faceA2-sutured area at tmwdxK9-uwpwdP6-uqxzhqztr valveA5-necrotic ascending colon pxukmsT4-H6-onstfgeibru ascending colon mucosa, in its entiretyA 9-appendixA 10- mesenteric marginA 11-hemorrhagic mesenteric fatA 12-1 possible lymph node, bisectedA 13-1 possible lymph node, bisectedA 14-3 possible lymph nodesMalcomr MARIUSZ Myers HT (ASCP)Performed.[facility], Department of Pathology, [address] [place] [address], [facility], Department of Pathology,[address] [place] [address], [facility], Departmentof Pathology, [address] [place] [address], ALXL-GLUCOSE METER 2020-11-09 12:07:00 Test Item Value Reference Range Interpretation Comments POC-GLUCOSE METER 268 mg/dL 70-110 H : TESTED A T [facility] 6720 (BEAKER) (test code [facility], = 1538) [address]: Principal Archaeologist/Techni leah ID = [id number] for Cherelle núñez Yolanda TACROLIMUS [id number] 09:38:00 Test Item Value Reference Range Interpretation Comments TACROLIMUS BLOOD 8.0 ng/mL 10.0-20.0 L Test perfor med on Watson (BEAKER) (test code Architec t Immunoassay = 657) system with Chemiluminescen t Microparticle I mmunoassay (CMIA) technolo gy. Principal Archaeologist ID - AAHAMIDBASIC METABOLIC [id number] 06:25:00 Test Item Value Reference Range Interpretation [...] S NOT APPLICABLE FOR DIALYSIS PATIEN TS. Principal Archaeologist ID - PIAYA LHepatic function [id number] 06:12:00 Test Item Value Reference Range Interpretation Comments Protein, Total (test 5.7 See_Comment L [Autom ated code = 2885-2) message] The system which generated this result transmit juan reference range : 6.0 - 8.3 gm/dL . The reference range was not u sed to interpret th is result as normal/abnormal . Albumin (test code = 2.4 g/dL 3.5-5 L 69951-4) Total Bilirubin (test 0.2 mg/dL 0.2-1.2 code = 1975-2) Bilirubin, Direct 0.2 mg/dL 0.1-0.5 (test code = 1968-7) Alkaline Phosphatase 76 U/L 40-150 (test code = 6768-6) AST (test code = 13 U/L 5-34 1920-8) ALT (test code = 14 U/L 6-55 1742-6) BRADLY (test code = BRADLY) Principal Archaeologist ID - PIKIMBERLI L Lab Interpretation Abnormal (test code = 15395-0) [facility] 06:12:00 Test Item Value Reference Range Interpretation Comments Magnesium (test code = 2.1 mg/dL 1.6-2.6 73769-4) BRADLY (test code = BRADLY) Principal Archaeologist ID - PIAYA L Lab Interpretation (test Normal code = 10682-6) [facility] 06:12:00 Test Item Value Reference Range Interpretation Comments Phosphorus (test code = 3.0 mg/dL 2.3-4.7 2777-1) BRADLY (test code = BRADLY) Principal Archaeologist ID - DONNA L Lab Interpretation (test Normal code = 51168-0) [facility]-18 06:12:00 Test Item Value Reference Range Interpretation Comments MAGNESIUM (BEAKER) (test code = 2.1 mg/dL 1.6-2.6 627) Principal Archaeologist ID - DONNA [id number] 06:12:00 Test Item Value Reference Range Interpretation Comments PHOSPHORUS (BEAKER) (test code = 3.0 mg/dL 2.3-4.7 604) Principal Archaeologist ID - DONNA LHEPATIC FUNCTION [id number] 06:12:00 Test Item Value Reference Range Interpretation [...] (test code = 14 U/L 6-55 347) Principal Archaeologist ID - DONNA LVancomycin level, [id number] 06:06:00 Test Item Value Reference Range Interpretation Comments Vancomycin Rm (test 17.1 ug/mL code = 21059-6) BRADLY (test code = Reference Range: No BRADLY) NormalsOperator ID - PIAYA L [facility] CenterVANCOMYCIN LEVEL, [id number] 06:06:00 Test Item Value Reference Range Interpretation Comments VANCOMYCIN RANDOM (BEAKER) (test 17.1 ug/mL code = 523) Reference Range: No NormalsOperator ID - DONNA LPOCT-GLUCOSE [id number] 05:57:00 Test Item Value Reference Range Interpretation Comments POC-GLUCOSE METER 172 mg/dL 70-110 H : TESTED A T [facility] 6720 (BEAKER) (test code = [place], 1538) [address]: Principal Archaeologist/Techni leah ID = [id number] for JERONIMO EMERSON Calcium, [id number] 05:51:00 Test Item Value Reference Range Interpretation Comments Calcium, Ion (test code = 1993-3) 1.05 mmol/L 1.12-1.27 L pH, Blood (test code = 14351-1) 7.33 Lab Interpretation (test code = Abnormal 85239-9) [facility] CenterCALCIUM, [id number] 05:51:00 Test Item Value Reference Range Interpretation Comments CALCIUM IONIZED (BEAKER) (test 1.05 mmol/L 1.12-1.27 L code = 698) PH, BLOOD (BEAKER) (test code = 7.33 1810) [id number] 05:45:00 Test Item Value Reference Range Interpretation Comments PTT (test code = 39.0 See_Comment H [Automated message] 79331-1) The system Celsias generated this result transmitted ref erence range: 22.5 - 3 6.0 seconds. The reference range was not used to int erpret this result as normal/abnormal . Lab Interpretation (test Abnormal code = 47617-9) [facility] CenterAPTT[facility] 05:45:00 Test Item Value Reference Range Interpretation Comments PARTIAL THROMBOPLASTIN TIME 39.0 seconds 22.5-36.0 H (BEAKER) (test code = 760) PROTHROMBIN TIME/[id number] 05:44:00 Test Item Value Reference Range Interpretation Comments PROTIME (BEAKER) 13.9 seconds 11.9-14.2 (test code = 759) INR (BEAKER) (test 1.08 See_Comment [Automat ed message] code = 370) The system Celsias generated this result transmitted ref erence range: <=5.90. The reference range was not used to int erpret this result as normal/abnormal . RECOMMENDED COUMADIN/WARFARIN INR THERAPY RANGESSTANDARD DOSE: 2.0 - 3.0 Includes: PROPHYLAXIS for venous thrombosis, systemic embolization; TREATMENT for venous thrombosis and/or pulmonary embolus.HIGH RISK: Target INR is 2.5-3.5 for patients with mechanical heart valves.CBC W/PLT COUNT & AUTO [id number] 05:38:00 Test Item Value Reference Range Interpretation [...] PERCENT (BEAKER) (test code = 2801) POCT-GLUCOSE [id number] 00:43:00 Test Item Value Reference Range Interpretation Comments POC-GLUCOSE METER 224 mg/dL 70-110 H : TESTED A T [facility] 6720 (BEAKER) (test code = [facility], 1538) [address]: Principal Archaeologist/Techni leah ID = [id number] for MEAGAN LAMA JERONIMO POCT-GLUCOSE [id number] 18:08:00 Test Item Value Reference Range Interpretation Comments POC-GLUCOSE METER 200 mg/dL 70-110 H : TESTED A T [facility] 6720 (BEAKER) (test code = [facility], 1538) [address]: Principal Archaeologist/Techni leah ID = [id number] for SILVINO HARRISON BASIC METABOLIC [id number] 10:59:00 Test Item Value Reference Range Interpretation [...] S NOT APPLICABLE FOR DIALYSIS PATIEN TS. Principal Archaeologist ID - DONNA [id number] 10:50:00 Test Item Value Reference Range Interpretation Comments MAGNESIUM (BEAKER) (test code = 2.1 mg/dL 1.6-2.6 627) Principal Archaeologist ID - DONNA [id number] 10:50:00 Test Item Value Reference Range Interpretation Comments PHOSPHORUS (BEAKER) (test code = 2.7 mg/dL 2.3-4.7 604) Principal Archaeologist ID - DONNA LHEPATIC FUNCTION [id number] 10:50:00 Test Item Value Reference Range Interpretation [...] (test code = 22 U/L 6-55 347) Principal Archaeologist ID - DONNA LTACROLIMUS [id number] 10:42:00 Test Item Value Reference Range Interpretation Comments TACROLIMUS BLOOD 8.9 ng/mL 10.0-20.0 L Test perfor med on Watson (BEAKER) (test code Architec t Immunoassay = 657) system with Chemiluminescen t Microparticle I mmunoassay (CMIA) technolo gy. Principal Archaeologist ID - VIRGIE FCALCIUM, [id number] 07:55:00 Test Item Value Reference Range Interpretation Comments CALCIUM IONIZED (BEAKER) (test 1.10 mmol/L 1.12-1.27 L code = 698) PH, BLOOD (BEAKER) (test code = 7.33 1810) [id number] 06:57:00 Test Item Value Reference Range Interpretation Comments PARTIAL THROMBOPLASTIN TIME 51.2 seconds 22.5-36.0 H (BEAKER) (test code = 760) PROTHROMBIN TIME/[id number] 06:56:00 Test Item Value Reference Range Interpretation Comments PROTIME (BEAKER) 14.8 seconds 11.9-14.2 H (test code = 759) INR (BEAKER) (test 1.18 See_Comment [Automat ed message] code = 370) The system Celsias generated this result transmitted ref erence range: <=5.90. The reference range was not used to int erpret this result as normal/abnormal . RECOMMENDED COUMADIN/WARFARIN INR THERAPY RANGESSTANDARD DOSE: 2.0 - 3.0 Includes: PROPHYLAXIS for venous thrombosis, systemic embolization; TREATMENT for venous thrombosis and/or pulmonary embolus.HIGH RISK: Target INR is 2.5-3.5 for patients with mechanical heart valves.CBC W/PLT COUNT & AUTO [id number] 06:45:00 Test Item Value Reference Range Interpretation [...] PERCENT (BEAKER) (test code = 2801) POCT-GLUCOSE [id number] 23:49:00 Test Item Value Reference Range Interpretation Comments POC-GLUCOSE METER 132 mg/dL 70-110 H : TESTED A T [facility] 6720 (BEAKER) ([facility] 1538[facility] [address]: Principal Archaeologist/Techni leah ID = [id number] for JERONIMO EMERSON POCT-GLUCOSE [id number] 11:52:00 Test Item Value Reference Range Interpretation Comments POC-GLUCOSE METER 153 mg/dL 70-110 H : TESTED A T [facility] 6720 (BEAKER) (test code [facility], = 1538) [address]: Principal Archaeologist/Techni leah ID = [id number] for Yolanda Chairez Anaerobic [id number] 10:22:00 Test Item Value Reference Range Interpretation Comments Result (test code = No anaerobes isolated 6463-4) [facility] Center[facility]IC [id number] 10:22:00 Test Item Value Reference Range Interpretation Comments CULTURE (BEAKER) (test No anaerobes isolated code = 1095) TACROLIMUS [id number] 09:33:00 Test Item Value Reference Range Interpretation Comments TACROLIMUS BLOOD 15.3 ng/mL 10.0-20.0 Test perfor med on Watson (BEAKER) (test code Architec t Immunoassay = 657) system with Chemiluminescen t Microparticle Immunoassay (CM IA) technology. Principal Archaeologist ID - [id number] 06:12:00 Test Item Value Reference Range Interpretation Comments MAGNESIUM (BEAKER) (test code = 2.6 mg/dL 1.6-2.6 627) Principal Archaeologist ID - [id number] 06:12:00 Test Item Value Reference Range Interpretation Comments PHOSPHORUS (BEAKER) (test code = 4.2 mg/dL 2.3-4.7 604) Principal Archaeologist ID - DBHEPATIC FUNCTION [id number] 06:12:00 Test Item Value Reference Range Interpretation [...] (test code = 30 U/L 6-55 347) Principal Archaeologist ID - DBBASIC METABOLIC [id number] 06:12:00 Test Item Value Reference Range Interpretation [...] S NOT APPLICABLE FOR DIALYSIS PATIEN TS. Principal Archaeologist ID - [id number] 05:47:00 Test Item Value Reference Range Interpretation Comments PARTIAL THROMBOPLASTIN TIME 44.0 seconds 22.5-36.0 H (BEAKER) (test code = 760) PROTHROMBIN TIME/[id number] 05:46:00 Test Item Value Reference Range Interpretation Comments PROTIME (BEAKER) 14.9 seconds 11.9-14.2 H (test code = 759) INR (BEAKER) (test 1.19 See_Comment [Automat ed message] code = 370) The system Celsias generated this result transmitted ref erence range: <=5.90. The reference range was not used to int erpret this result as normal/abnormal . RECOMMENDED COUMADIN/WARFARIN INR THERAPY RANGESSTANDARD DOSE: 2.0 - 3.0 Includes: PROPHYLAXIS for venous thrombosis, systemic embolization; TREATMENT for venous thrombosis and/or pulmonary embolus.HIGH RISK: Target INR is 2.5-3.5 for patients with mechanical heart valves.CALCIUM, [id number] 05:35:00 Test Item Value Reference Range Interpretation Comments CALCIUM IONIZED (BEAKER) (test 1.07 mmol/L 1.12-1.27 L code = 698) PH, BLOOD (BEAKER) (test code = 7.40 1810) CBC W/PLT COUNT & AUTO [id number] 05:28:00 Test Item Value Reference Range Interpretation [...] (BEAKER) (test code = 2801) VANCOMYCIN LEVEL, [id number] 15:55:00 Test Item Value Reference Range Interpretation Comments VANCOMYCIN RANDOM (BEAKER) (test 18.6 ug/mL code = 523) Reference Range: No NormalsOperator ID - [id number] Echo W/Doppler(CW/PW/Color) 2020-11-06 15:26:24Ejection FractionSLEH ECHO HEARTLAB MKCKESSON CPACSInterface, External Ris In - 11/06/2020 3:26 PM CDTTransthoracic Echocardiography Report (TTE) Demographics Patient Name PAM KO Date of Study 11/06/2020 MARCIN Gender Female Visit Number [id number] Race Room Number 7A05 Number Date of 1955 Referring MARILOU MACKAY Physician Age 65 year(s) Geodetic Survey Director Yann Mendez [facility] Stenographer Secretary Vinnie Harding Interpreting Physician TAPAN Doyle Procedure Type of Study TTE procedure:2DECHO W DOPPLER(CW/PW/COLOR) (STAT) Indications:Concern for isch emia.Clinical HistoryCancerDiabetesHepatitis BHepatitis CHypertensionMetabolic SyndromeObesityStroke/TIAWeight loss02/16/14 R & L Cath / PCI09/30/14 Liver transplant11/04/20 Exploratory Laparotomy & small bowel resectionHGB 9HCT 29.4 %Height: 65 inches Weight: 80.29 kg (177 lbs) BSA: 1.88 m^2 [...] heart rate and mitral annular calcification . 5. Hpeh-sb-fjiqvsng mitral regurgitation. Previous Study Compared to the previous study there was no significant change. Signature -- Findings Left Ventricle The left ventricle is chamber size (by PSLAX dimension) is normal (female - LVIDd 3.8-5.2cm) . Mild concentric LV hypertrophy. All of the LV segments contract normally . Estimated LVEF by qualitative assessment is normal (>60%) . Degree of diastolic dysfunction (LAP assessment) is inconclusive due to mitral annular calcification . Left Atrium LA sizeis severely enlarged (>48 ml/m2) . Right Ventricle Normal right ventricle structure and function. Right Atrium RA cavity size is normal . Aortic Valve Mild AoV cusp thickening. Mitral Valve Mild MV leaflet thickening. Severe mitral annular calcification. Zukx-nh-pkmknjtq mitral regurgitation. MV gradients are increased in [...] TR Velocity: 2.05 m/s TR Gradient: 16.8 mmHgWhittier Hospital Medical CenterPOCT-GLUCOSE [id number] 15:14:00 Test Item Value Reference Range Interpretation Comments POC-GLUCOSE METER 138 mg/dL 70-110 H : TESTED A T [facility] 6720 (BEAKER) (test code = [place], 1538) [address]: Principal Archaeologist/Techni leah ID = [id number] for Da keesha (contract), Darrel ly Surgically obtained culture + gram [id number] 13:22:00 Test Item Value Reference Range Interpretation Comments Result (test code = 6463-4) No growth Gram Stain Result (test No organisms seen code = 1123) [facility] + GRAM [id number] 13:22:00 Test Item Value Reference Range Interpretation Comments CULTURE (BEAKER) (test code No growth = 1095) GRAM STAIN RESULT (BEAKER) <1+ WBCs (test code = 1123) GRAM STAIN RESULT (BEAKER) No organisms seen (test code = 05272) Venous doppler arm, [id number] 10:06:56Ejection FractionSLEH ECHO HEARTLAB MKCKESSON CPACSRight Impression1. [...] acute thrombus. Signature Velocities are measured in cm/s; Diameters are measured in cm Interface, External Ris In - 11/06/2020 10:07 AM CDTPV LAB - Upper Extremities Veins Demographics Patient Name PAM KO Date of Study 11/06/2020 MARCIN Age 65 Visit Number [id number] Gender Female Accession Number [id number] Date of 1955 Referring Cecilia Huerta Room Number 7A05 Physician Geodetic Survey Director Ashley Higgins [facility] Interpreting MD Gumaro Physician ProcedureType of Study: Veins: Upper Extremities Veins, VENOUS DOPPLER ARM, RIGHT. Indications for Study:Right arm swelling- please evaluate for DVT.Patient Status:CARMEN.Study Location:Portable.Technical Quality:Adequate visualization. - Results were reported to:JACQUELYN Lund @ 01:45.Risk FactorsHistory of Disease+ + + ---+!Diagnosis !Date !Comments !+ + + ------+!History/Risk Factors: !09/04/2018!Bilateral LE swelling !! ! !Fluid overload !+ + + +!History/Risk Factors: !11/06/2020!RUE swelling !! ! !Multiple invasive lines !+ + + +ImpressionsRight Impression1. There is no deep venous obstruction [...] in cm/s ; Diameters are measured in [facility] TACROLIMUS [id number] 09:13:00 Test Item Value Reference Range Interpretation Comments TACROLIMUS BLOOD 12.6 ng/mL 10.0-20.0 Test perfor med on [employer] (BEAKER) (test code Architec t Immunoassay = 657) system with Chemiluminescen t Microparticle Immunoassay (CM IA) technology. Principal Archaeologist MILE Eloy FINNEGAN MPOCT-GLUCOSE [id number] 06:00:00 Test Item Value Reference Range Interpretation Comments POC-GLUCOSE METER 123 mg/dL 70-110 H : TESTED A T [facility] 6720 (BEAKER) (test code = [place], 1538) [address]: Principal Archaeologist/Techni leah ID = [id number] for Ad Iveth corbin BASIC METABOLIC [id number] 05:09:00 Test Item Value Reference Range Interpretation Comments SODIUM (BEAKER) 143 meq/L 136-145 (test code = 381) POTASSIUM (BEAKER) 3.8 meq/L 3.5-5.1 Specimen slightly (test code [...] S NOT APPLICABLE FOR DIALYSIS PATIEN TS. Principal Archaeologist ID - JAYLEN [id number] 04:41:00 Test Item Value Reference Range Interpretation Comments MAGNESIUM (BEAKER) 2.5 mg/dL 1.6-2.6 Specimen slightly (test code = 627) hemolyzed Principal Archaeologist ID - JAYLEN [id number] 04:41:00 Test Item Value Reference Range Interpretation Comments PHOSPHORUS (BEAKER) 3.7 mg/dL 2.3-4.7 Specimen slightly (test code = 604) hemolyzed Principal Archaeologist ID - JAYLEN MHEPATIC FUNCTION [id number] 04:41:00 Test Item Value Reference Range Interpretation [...] Specimen slightly (test code = 347) hemolyzed Principal Archaeologist ID - JAYLEN [id number] 04:06:00 Test Item Value Reference Range Interpretation Comments PARTIAL THROMBOPLASTIN TIME 50.8 seconds 22.5-36.0 H (BEAKER) (test code = 760) CBC W/PLT COUNT & AUTO [id number] 04:04:00 Test Item Value Reference Range Interpretation [...] PERCENT (BEAKER) (test code = 2801) PROTHROMBIN TIME/[id number] 04:04:00 Test Item Value Reference Range Interpretation Comments PROTIME (BEAKER) 17.1 seconds 11.9-14.2 H (test code = 759) INR (BEAKER) (test 1.41 See_Comment [Automat ed message] code = 370) The system Celsias generated this result transmitted ref erence range: <=5.90. The reference range was not used to int erpret this result as normal/abnormal . RECOMMENDED COUMADIN/WARFARIN INR THERAPY RANGESSTANDARD DOSE: 2.0 - 3.0 Includes: PROPHYLAXIS for venous thrombosis, systemic embolization; TREATMENT for venous thrombosis and/or pulmonary embolus.HIGH RISK: Target INR is 2.5-3.5 for patients with mechanical heart valves.CALCIUM, [id number] 03:44:00 Test Item Value Reference Range Interpretation Comments CALCIUM IONIZED (BEAKER) (test 1.08 mmol/L 1.12-1.27 L code = 698) PH, BLOOD (BEAKER) (test code = 7.46 1810) U/S, HEPATIC PORTAL VESSEL WITH [id number] 00:51:00Reason for exam:- >eval patency of portal vein [facility] 1955 Sex: FFINAL REPORT INDICATION: eval patency of portal vein COMPARISON: None TECHNIQUE:Real-time miranda-scale transabdominal and color and spectral Doppler ultrasound. FINDINGS:Liver: Size:16.3cm. Echogenicity: Normal. Masses/lesions: None. Surface Nodularity: None. Intrahepatic bile ducts: Normal. Common bile duct: 0.7cm. MPV: 1.3cm. Gallbladder: Surgically absent. Pancreas: Head and unc inate process: Not well-seen secondary to poor acoustic [...] nonspecific however recommend continued attention on follow-up im aging. Otherwise unremarkable hepatic transplant Doppler examination. Bilateral pleural effusions. Splenomegaly. Increased right renal parenchymal echogenicity is nonspecific however can be seen in thesetting of medical renal disease. Signed: Aminata Fuentes MDReport Verified Date/Time: 11/06/2020 00:51:07 US Hepatic Portal Vessel with [id number] 00:51:00Interface, External Ris In - 11/06/2020 12:54 AM CDTFINAL REPORT INDICATION: eval patency of portal vein COMPARISON: None TECHNIQUE: Real-time miranda-scale transabdominal and color and spectral Doppler ultrasound. FINDINGS:Liver: Size: 16.3cm. Echogenicity: Normal. Masses/lesions: None. Surface Nodularity: None. Intrahepatic bile ducts: Normal. Common bile duct: 0.7cm. MPV: 1.3cm. G allbladder: Surgically absent. Pancreas: Head and uncinate process: Not well- seen secondary to poor acoustic windowing.. Body and tail: Not well-seen. Spleen: Size: 14.9cm. Echogenicity: Unremarkable. Right kidney: Size: 8.9 x 4.7 x 4.8 cm. Parenchyma: Increased echogenicity.. No cysts. No stones. Hydr onephrosis: None. Ascites: None. Regional Vasculature: The visible abdominal aorta, IVC and hepatic veins are patent. The aorta measures 2.2 cm proximally. Color and Spectral imaging:MPV: Diameter: 1.3cm Flow: Hepatopedal. Velocity: 32.5 cm/sec Filling defects: [...] resistive indices in the hepatic arteries above nonspecifichowever recommend continued attention on follow-up imaging. Otherwise unremarkable hepatic transplant Doppler examination. Bilateral pleural effusions. Splenomegaly. Increased right renal parenchymal echogenicity is nonspecific however can be seen in the setting of medical renal disease. Signed: Aminata Fuentes Verified Date/Time: 11/06/2020 00:51:07 [facility] [id number] 00:01:00 Test Item Value Reference Range Interpretation Comments POC-GLUCOSE METER 117 mg/dL 70-110 H : TESTED A T [facility] 6720 (BEAKER) (test code = [facility], 1538) [address]: Principal Archaeologist/Techni leah ID = [id number] for Ad amsIveth POCT-GLUCOSE [id number] 18:10:00 Test Item Value Reference Range Interpretation Comments POC-GLUCOSE METER 104 mg/dL 70-110 : TESTED A T [facility] 6720 (BEAKER) (test code = [facility], 1538) 94[address]: Principal Archaeologist/Techni leah ID = [id number] for MO RRIS, CUCA BASIC METABOLIC [id number] 16:05:00 Test Item Value Reference Range Interpretation [...] S NOT APPLICABLE FOR DIALYSIS PATIEN TS. Principal Archaeologist ID - [id number] 16:03:00 Test Item Value Reference Range Interpretation Comments MAGNESIUM (BEAKER) (test code = 2.3 mg/dL 1.6-2.6 627) Principal Archaeologist ID - [id number] 16:03:00 Test Item Value Reference Range Interpretation Comments PHOSPHORUS (RAJI) (test code = 2.6 mg/dL 2.3-4.7 604) Principal Archaeologist ID - DBVancomycin level, [id number] 16:00:00 Test Item Value Reference Range Interpretation Comments Vancomycin Tr (test code = 5.5 ug/mL 10-20 L 4092-3) BRADLY (test code = BRADLY) Principal Archaeologist ID - DB Lab Interpretation (test Abnormal code = 11815-6) [facility] CenterVANCOMYCIN LEVEL, [id number] 16:00:00 Test Item Value Reference Range Interpretation Comments VANCOMYCIN TROUGH (RAJI) (test 5.5 ug/mL 10.0-20.0 L code = 522) Principal Archaeologist ID - DBPOCT-GLUCOSE [id number] 12:57:00 Test Item Value Reference Range Interpretation Comments POC-GLUCOSE METER 114 mg/dL 70-110 H : TESTED A T [facility] 6720 (RAJI) (test code = [place], 1538) [address]: Principal Archaeologist/Techni leah ID = [id number] for MO RRIS, CUCA TACROLIMUS [id number] 09:33:00 Test Item Value Reference Range Interpretation Comments TACROLIMUS BLOOD 5.8 ng/mL 10.0-20.0 L Test perfor med on Watson (RAJI) (test code Architec t Immunoassay = 657) system with Chemiluminescen t Microparticle I mmunoassay (CMIA) tana mcmahon Principal Archaeologist ID - AAHAMIDECG 12 [id number] 09:12:34Interface, External Ris In - 11/05/2020 9:12 AM CDTVentricular Rate 89 BPMAtrial Rate 89 BPMP-R Interval 190 msQRS Duration 102 msQ-T Interval 410 msQTC Calculation(Bazett) 498 msP [place] 67 degreesR [place] -2 degreesT [place] 67 degreesNormal sinus rhythmProlonged QTAbnormal ECGWhen compared with ECG of 09-AUG-2016 07:55,No significant change was foundConfirmed by MD NATHEN, BOBBY ([id number]) on 11/05/2020 9:12:31 [facility] HospitalHepatitis B surface [id number] 07:27:00 Test Item Value Reference Range Interpretation Comments HBsAg Screen (test code Nonreactive Nonreactive = 5195-3) BRADLY (test code = BRADLY) Specimen is considered negative for HBsAg. Lab Interpretation (test Normal code = 16743-6) [facility] B SURFACE [id number] 07:27:00 Test Item Value Reference Range Interpretation Comments HEPATITIS B SURFACE ANTIGEN (2) Nonreactive Nonreactive (BEAKER) (test code = 2585) Specimen is considered negative for HBsAg.BASIC METABOLIC [id number] 06:59:00 Test Item Value Reference Range Interpretation [...] S NOT APPLICABLE FOR DIALYSIS PATIEN TS. Principal Archaeologist ID - JAYLEN [id number] 06:51:00 Test Item Value Reference Range Interpretation Comments MAGNESIUM (BEAKER) (test code = 2.8 mg/dL 1.6-2.6 H 627) Principal Archaeologist ID - JAYLEN [id number] 06:51:00 Test Item Value Reference Range Interpretation Comments PHOSPHORUS (BEAKER) (test code = 4.5 mg/dL 2.3-4.7 604) Principal Archaeologist ID - JAYLEN MHEPATIC FUNCTION [id number] 06:51:00 Test Item Value Reference Range Interpretation [...] (test code = 21 U/L 6-55 347) Principal Archaeologist ID - JAYLEN MCALCIUM, [id number] 06:44:00 Test Item Value Reference Range Interpretation Comments CALCIUM IONIZED (BEAKER) (test 1.09 mmol/L 1.12-1.27 L code = 698) PH, BLOOD (BEAKER) (test code = 7.41 1810) CBC W/PLT COUNT & AUTO [id number] 06:31:00 Test Item Value Reference Range Interpretation [...] PERCENT (BEAKER) (test code = 2801) POCT-GLUCOSE [id number] 06:24:00 Test Item Value Reference Range Interpretation Comments POC-GLUCOSE METER 171 mg/dL 70-110 H : TESTED A T [facility] 6720 (BEAKER) (test code = [place], 1538) [address]: Principal Archaeologist/Techni leah ID = [id number] for Ad Iveth corbin [id number] 06:14:00 Test Item Value Reference Range Interpretation Comments PARTIAL THROMBOPLASTIN TIME 47.1 seconds 22.5-36.0 H (BEAKER) (test code = 760) PROTHROMBIN TIME/[id number] 06:13:00 Test Item Value Reference Range Interpretation Comments PROTIME (BEAKER) 19.3 seconds 11.9-14.2 H (test code = 759) INR (BEAKER) (test 1.65 See_Comment [Automat ed message] code = 370) The system Celsias generated this result transmitted ref erence range: <=5.90. The reference range was not used to int erpret this result as normal/abnormal . RECOMMENDED COUMADIN/WARFARIN INR THERAPY RANGESSTANDARD DOSE: 2.0 - 3.0 Includes: PROPHYLAXIS for venous thrombosis, systemic embolization; TREATMENT for venous thrombosis and/or pulmonary embolus.HIGH RISK: Target INR is 2.5-3.5 for patients with mechanical heart valves.POCT-GLUCOSE [id number] 00:26:00 Test Item Value Reference Range Interpretation Comments POC-GLUCOSE METER 164 mg/dL 70-110 H : TESTED A T [facility] 6720 (BEAKER) (test code = [place], 1538) [address]: Principal Archaeologist/Techni leah ID = [id number] for IB ENEME, EUCHERIA BASIC METABOLIC [id number] 19:30:00 Test Item Value Reference Range Interpretation [...] S NOT APPLICABLE FOR DIALYSIS PATIEN TS. Principal Archaeologist ID - [id number] 19:29:00 Test Item Value Reference Range Interpretation Comments MAGNESIUM (BEAKER) (test code = 2.6 mg/dL 1.6-2.6 627) Principal Archaeologist ID - [id number] 19:29:00 Test Item Value Reference Range Interpretation Comments PHOSPHORUS (BEAKER) (test code = 4.2 mg/dL 2.3-4.7 604) Principal Archaeologist ID - BSHEPATIC FUNCTION [id number] 19:29:00 Test Item Value Reference Range Interpretation [...] (test code = 24 U/L 6-55 347) Principal Archaeologist ID - [id number] 19:26:00 Test Item Value Reference Range Interpretation Comments PARTIAL THROMBOPLASTIN TIME 45.9 seconds 22.5-36.0 H (BEAKER) (test code = 760) PROTHROMBIN TIME/[id number] 19:25:00 Test Item Value Reference Range Interpretation Comments PROTIME (BEAKER) 19.8 seconds 11.9-14.2 H (test code = 759) INR (BEAKER) (test 1.71 See_Comment [Automat ed message] code = 370) The system Celsias generated this result transmitted ref erence range: <=5.90. The reference range was not used to int erpret this result as normal/abnormal . RECOMMENDED COUMADIN/WARFARIN INR THERAPY RANGESSTANDARD DOSE: 2.0 - 3.0 Includes: PROPHYLAXIS for venous thrombosis, systemic embolization; TREATMENT for venous thrombosis and/or pulmonary embolus.HIGH RISK: Target INR is 2.5-3.5 for patients with mechanical heart valves.Lactic Acid, [id number] 19:17:00 Test Item Value Reference Range Interpretation Comments Lactate, Art (test 2.6 mmol/L 0.5-2.2 H Specimen code = 3984) moderately hemolyzed BRADLY (test code = BRADLY) Principal Archaeologist ID - BS Lab Interpretation Abnormal (test code = 48533-3) [facility], [id number] 19:17:00 Test Item Value Reference Range Interpretation Comments LACTATE BLOOD 2.6 mmol/L 0.5-2.2 H Specimen moder ately ARTERIAL (2) (BEAKER) hemoly zed (test code = 2874) Principal Archaeologist ID - BSCBC W/PLT COUNT & AUTO [id number] 19:13:00 Test Item Value Reference Range Interpretation [...] PERCENT (BEAKER) (test code = 2801) SARS-COV2/RT-PCR ([facility])2020-11-04 15:50:00 Test Item Value Reference Range Interpretation Comments SARS-COV2/RT-PCR (test Negative Not Detected, Negative, code = 0530428) See external report for linked test SARS-COV-[address] [facility] (test code = 1353648) Negative result for this test determines that [...] justifying the authorization of the emergency use ofin vitro diagnostic tests for detection and/or diagnosis of COVID-19 is terminated under Section 564(b)(2) of the Act or the EUA is revoked under Section 564(g) of the Act.Fact Sheet for Healthcare Prov iders:https://www.[employer]/sites/default/files/product/documents/Fact_Sheet_HC _Xhvxiqglw_Ujbs_HTGO-QeT-2.pdfFact Sheet for Healthcare Patients:https://www.[employer]/sites/default/files/product/docume nts/Xfdk_Wogta_Lidfgjru_Rnxj_PTIC-SoL-1.pdfPerforming Laboratory:[facility] [facility].[place], [place] [address]FQXB-JJNXHXU METER 2020-11-04 15:37:00 Test Item Value Reference Range Interpretation Comments POC-GLUCOSE METER 223 mg/dL 70-110 H : TESTED A T [facility] 6720 (BEAKER) (test code [facility], = 1538) [address]: Principal Archaeologist/Techni leah ID = [id number] for DENEEN NUNEZ CBC W/PLT COUNT & AUTO [id number] 14:30:00 Test Item Value Reference Range Interpretation [...] CONCENTRATION Adequate (CELLAVISION)(BEAKER) (test code = 3438) Principal Archaeologist ID - Courtney Foote comments: Slide comments:Type and screen, [id number] 10:04:00 Test Item Value Reference Range Interpretation Comments ABO/RH AUTOMATED (BEAKER) (test B POSITIVE code = 2260) Ab Scrn (test code = 890-4) [facility]GATIVE [facility] [id number] 10:04:00 Test Item Value Reference Range Interpretation [...] S NOT APPLICABLE FOR DIALYSIS PATIEN TS. Principal Archaeologist ID - ADMINPOCT-GLUCOSE [id number] 08:34:00 Test Item Value Reference Range Interpretation Comments POC-GLUCOSE METER 210 mg/dL 70-110 H : [facility] [facility] (BEAKER[place] (test code = [place], 1538) [address]: Principal Archaeologist/Techni leah ID = [id number] for Fish vickyCarol HEPATIC FUNCTION [id number] 07:43:00 Test Item Value Reference Range Interpretation [...] Specimen slightly (test code = 347) hemolyzed Principal Archaeologist ID - ADMINBASIC METABOLIC [id number] 05:53:00 Test Item Value Reference Range Interpretation [...] S NOT APPLICABLE FOR DIALYSIS PATIEN TS. Principal Archaeologist ID - ADMINCBC W/PLT COUNT & AUTO [id number] 05:36:00 Test Item Value Reference Range Interpretation [...] (BEAKER) (test code = 2801) Lactic acid, [id number] 05:35:00 Test Item Value Reference Range Interpretation Comments Lactate, Venous (test 3.55 mmol/L 0.5-2.2 H Specim en code = 2572) slightly hemolyzed BRADLY (test code = BRADLY) Principal Archaeologist ID - ADMIN Lab Interpretation Abnormal (test code = 02246-8) [facility], [id number] 05:35:00 Test Item Value Reference Range Interpretation Comments LACTATE BLOOD VENOUS 3.55 mmol/L 0.50-2.20 H Specime n slightly (2) (BEAKER) (test hemolyzed code = 2872) Principal Archaeologist ID - ADMINPROTHROMBIN TIME/[id number] 05:24:00 Test Item Value Reference Range Interpretation Comments PROTIME (BEAKER) 15.2 seconds 11.9-14.2 H (test code = 759) INR (BEAKER) (test 1.22 See_Comment [Automat ed message] code = 370) The system Celsias generated this result transmitted ref erence range: <=5.90. The reference range was not used to int erpret this result as normal/abnormal . RECOMMENDED COUMADIN/WARFARIN INR THERAPY RANGESSTANDARD DOSE: 2.0 - 3.0 Includes: PROPHYLAXIS for venous thrombosis, systemic embolization; TREATMENT for venous thrombosis and/or pulmonary embolus.HIGH RISK: Target INR is 2.5-3.5 for patients with mechanical heart valves.[id number] 00:00:00Ordered by an unspecified provider.[facility] CenterPO[facility]ER 2019-04-14 17:00:00 Test Item Value Reference Range Interpretation Comments POC-GLUCOSE METER 82 mg/dL 70-110 : TESTED A T [facility] 1317 (BEAKER) (test code = [address], 1538) [place] [address]: Principal Archaeologist/Techni leah ID = [id number] for Kymberly garcia Coreydashradha POCT-GLUCOSE [id number] 13:38:00 Test Item Value Reference Range Interpretation Comments POC-GLUCOSE METER 143 mg/dL 70-110 H : TESTED A T [facility] (BEAKER) (test code [address], = 1538) [place] [id number]: Principal Archaeologist/Techni leah ID = [id number] for [address] BASIC METABOLIC [id number] 14:15:00 Test Item Value Reference Range Interpretation [...] S NOT APPLICABLE FOR DIALYSIS PATIEN TS. [id number] 14:10:00 Test Item Value Reference Range Interpretation [...] Information (Auto Output)CBC W/PLT COUNT & AUTO [id number] 13:57:00 Test Item Value Reference Range Interpretation [...] (BEAKER) (test code = 2801) HEPATITIS PANEL, [id number] 13:23:00 Test Item Value Reference Range Interpretation Comments HEPATITIS A IGM ANTIBODY (BEAKER) Nonreactive Nonreactive (test code = 498) HEPATITIS B CORE IGM ANTIBODY Nonreactive Nonreactive (BEAKER) (test code = 645) HEPATITIS C ANTIBODY (BEAKER) Reactive Nonreactive A (test code = 367) HEPATITIS B SURFACE ANTIGEN (2) Nonreactive Nonreactive (RAJI) (test code = 2585) HEPATITIS C PCR, [id number] 09:00:00 Test Item Value Reference Range Interpretation Comments HCV RESULT COMPONENT HCV RNA not detected HCV RNA not detected (RAJI) (test code = 2699) This test uses a Real-Time Polymerase Chain Reaction (RT-PCR) methodology and was performed using LAZ Ampliprep/LAZ TaqMan HCV test kit version 2.0 ([employer]).Reportable range for this assay is 15 - 100,000,000 IU per mL (1.18 - 8.00 Log IU/mL).RAD, CHEST, 2 [id number] 12:43:00PA and Lateral for Liver TransplantReason for Exam:->s/p OLT; h/o HCCFINAL REPORT Chest, PA and lateral. History: Liver transplant. Comparison: 09/04/2018. Discussion: Dialysis catheter present. The cardiomediastinal silhouette and pulmonary vasculature are within normal limits. The lungs are clear without evidence of consolidation or effusion. There are no acute osseous abnormalities. The soft tissues are unremarkable. IMPRESSION: No acute cardiopulmonary abnormality. Signed: Blue Chambers MDReport Verified Date/Time: 11/18/2018 12:43:30 Reading Location: [facility] U/S, ABDOMINAL, WITH [id number] 12:41:00Doppler Study to evaluate Hepatic vesselsReason for Exam:->s/p OLT; h/o HCCFINAL REPORT Ultrasound of the Abdomen and Duplex Doppler. TECHNIQUE: Sonographic assessment of the abdomen was performed as well as a detailed duplex Doppler assessment of the liver including spectral wave forms and color-flow analysis of the major vascular structures. Clinical History: s/p OLT; h/o HCC. Comparison study: August 18, 2018. Findings: The transplant liver slightly heterogeneous in echotexture with no focal masses. It measures 14.8 cm in length. There is no evidence of intra or extrahepatic biliary dilatation with the [...] respectively. Outflow with appropriate directionality is seen in the IVC, hepatic venous confluence as well as the right, middle and left hepatic veins. Impression: 1. Slightly heterogeneous transplant liver with no focal masses.2. Mild splenomegaly.3. Elevated resistiveindices in the hepatic arteries. Otherwise unremarkable hepatic Doppler. Signed: Nino Mathew port Verified Date/Time: 11/18/2018 12:41:02 Reading Location: [address] Radiology Reading Room TACROLIMUS [id number] 11:19:00 Test Item Value Reference Range Interpretation Comments TACROLIMUS BLOOD (BEAKER) (test 12.6 ng/mL 10.0-20.0 code = 657) COMPREHENSIVE METABOLIC [id number] 09:26:00 Test Item Value Reference Range Interpretation [...] S NOT APPLICABLE FOR DIALYSIS PATIEN TS. [id number] 08:48:00 Test Item Value Reference Range Interpretation Comments PHOSPHORUS (BEAKER) (test code = 6.5 mg/dL 2.3-4.7 H 604) [id number] 08:48:00 Test Item Value Reference Range Interpretation Comments MAGNESIUM (BEAKER) (test code = 3.1 mg/dL 1.6-2.6 H 627) BILIRUBIN, [id number] 08:48:00 Test Item Value Reference Range Interpretation Comments BILIRUBIN DIRECT (BEAKER) (test 0.4 mg/dL 0.1-0.5 code = 706) CBC W/PLT COUNT & AUTO [id number] 08:07:00 Test Item Value Reference Range Interpretation [...] PERCENT (BEAKER) (test code = 2801) POCT-GLUCOSE [id number] 14:28:00 Test Item Value Reference Range Interpretation Comments POC-GLUCOSE METER 89 mg/dL 70-110 TESTED AT [facility] 6720 ([facility]) (test code = [place] [facility] [address]) POCT-GLUCOSE [id number] 11:40:00 Test Item Value Reference Range Interpretation Comments POC-GLUCOSE METER 131 mg/dL 70-110 H TESTED AT [facility] 6720 ([facility]) (test code = [facility] [place] 1538) [address] TACROLIMUS [id number] 09:35:00 Test Item Value Reference Range Interpretation Comments TACROLIMUS BLOOD (BEAKER) (test 5.7 ng/mL 10.0-20.0 L code = 657) POCT-GLUCOSE [id number] 07:27:00 Test Item Value Reference Range Interpretation Comments POC-GLUCOSE METER 101 mg/dL 70-110 TESTED AT [facility] 6720 (BEAKER) (test code = [place] 1538) [address] BASIC METABOLIC [id number] 06:57:00 Test Item Value Reference Range Interpretation [...] APPLICABLE FOR DIALYSIS PATIEN TS. HEPATIC FUNCTION [id number] 06:56:00 Test Item Value Reference Range Interpretation [...] code = 15 U/L 6-55 347) POCT-GLUCOSE [id number] 16:39:00 Test Item Value Reference Range Interpretation Comments POC-GLUCOSE METER 149 mg/dL 70-110 H TESTED AT [place] [address] ([facility]) (test code = [place] [facility] 1538) [address] HEPATITIS B SURFACE [id number] 15:26:00 Test Item Value Reference Range Interpretation Comments HEPATITIS B SURFACE ANTIBODY < mIU/mL <8.0 ([facility]) (test code = 647) POCT-GLUCOSE [id number] 12:22:00 Test Item Value Reference Range Interpretation Comments POC-GLUCOSE METER 141 mg/dL 70-110 H TESTED AT [place] [address] ([facility]) (test code = [facility] 1538) [address] TACROLIMUS [id number] 09:43:00 Test Item Value Reference Range Interpretation Comments TACROLIMUS BLOOD ([facility]) (test 5.5 ng/mL 10.0-20.0 L code = 657) POCT-GLUCOSE [id number] 07:48:00 Test Item Value Reference Range Interpretation Comments POC-GLUCOSE METER 135 mg/dL 70-110 H TESTED AT [place] [address] ([facility]) (test code = [facility] 1538) [address] BASIC METABOLIC [id number] 07:00:00 Test Item Value Reference Range Interpretation [...] 358) GLUCOSE RANDOM 107 mg/dL 70-105 H (AKER) (test code = 652) CALCIUM (BEAKER) 8.3 mg/dL 8.4-10.2 L (test code = 697) EGFR (BEAKER) (test 20 mL/min/1.73 ESTIMA JUAN GFR IS code = 1092) sq m NOT ACCURATE CREATININE CLEARANCE IN PREDICTING GLOMERULAR FILTRATION RATE . ESTIMATED GFR I S NOT APPLICABLE FOR DIALYSIS PATIEN TS. HEPATIC FUNCTION [id number] 06:54:00 Test Item Value Reference Range Interpretation [...] = 21 U/L 5-34 353) ALT (SGPT) ([facility]) (test code = 15 U/L 6-55 347) POCT-GLUCOSE [id number] 16:29:00 Test Item Value Reference Range Interpretation Comments POC-GLUCOSE METER 167 mg/dL 70-110 H TESTED AT [place] [address] ([facility]) (test code = [facility] 1538) [address] POCT-GLUCOSE [id number] 12:30:00 Test Item Value Reference Range Interpretation Comments POC-GLUCOSE METER 116 mg/dL 70-110 H TESTED AT [place] [address] ([facility]) (test code = [facility] 1538) [address] TACROLIMUS [id number] 11:11:00 Test Item Value Reference Range Interpretation Comments TACROLIMUS BLOOD ([facility]) (test 4.3 ng/mL 10.0-20.0 L code = 657) HEPATITIS C PCR, [id number] 09:05:00 Test Item Value Reference Range Interpretation Comments HCV RESULT COMPONENT HCV RNA not detected HCV RNA not detected ([facility]) (test code = 2699) This test uses a Real-Time Polymerase Chain Reaction (RT-PCR) methodology and was performed using LAZ Ampliprep/LAZ TaqMan HCV test kit version 2.0 ([employer]).Reportable range for this assay is 15 - 100,000,000 IU per mL (1.18 - 8.00 Log IU/mL).POCT-GLUCOSE [id number] 08:55:00 Test Item Value Reference Range Interpretation Comments POC-GLUCOSE METER 114 mg/dL 70-110 H TESTED AT [place] [address] ([facility]) (test code = [place] 1538) [address] HEPATIC FUNCTION [id number] 06:29:00 Test Item Value Reference Range Interpretation Comments TOTAL PROTEIN ([facility]) (test code = 6.5 gm/dL 6.0-8.3 770) ALBUMIN ([facility]) (test code = 1145) 3.0 g/dL 3.5-5.0 L BILIRUBIN TOTAL ([facility]) (test code 0.8 mg/dL 0.2-1.2 = 377) BILIRUBIN DIRECT ([facility]) (test 0.5 mg/dL 0.1-0.5 code = 706) ALKALINE PHOSPHATASE ([facility]) (test 86 U/L 40-150 code = 346) AST (SGOT) ([facility]) (test code = 14 U/L 5-34 353) ALT (SGPT) ([facility]) (test code = 11 U/L 6-55 347) POCT-GLUCOSE [id number] 22:27:00 Test Item Value Reference Range Interpretation Comments POC-GLUCOSE METER 272 mg/dL 70-110 H TESTED AT [place] [address] ([facility]) (test code = [place] [facility] 1538) [address] POCT-GLUCOSE [id number] 16:45:00 Test Item Value Reference Range Interpretation Comments POC-GLUCOSE METER 108 mg/dL 70-110 TESTED AT [place] [address] ([facility]) (test code = [place] [facility] 1538) [address] POCT-GLUCOSE [id number] 11:54:00 Test Item Value Reference Range Interpretation Comments POC-GLUCOSE METER 153 mg/dL 70-110 H TESTED AT [place] [address] ([facility]) (test code = [place] [facility] 1538) [address] TACROLIMUS [id number] 09:55:00 Test Item Value Reference Range Interpretation Comments TACROLIMUS BLOOD ([facility]) (test 5.5 ng/mL 10.0-20.0 L code = 657) U/S, [id number] 09:51:00Laterality?->RightReason for exam:->dyspneaFINAL REPORT Exam: Ultrasound guided [...] catheter was inserted into the pleural cavity. Ap proximately 1200 cc of serosanguineous pleural fluid was [...] MDReport Verified Date/Time: 09/09/2018 09:51:20 Reading Location: [address] Transitional Reading Room BASIC METABOLIC [id number] 08:37:00 Test Item Value Reference Range Interpretation [...] NOT APPLICABLE FOR DIALYSIS PATIEN TS. POCT-GLUCOSE [id number] 07:33:00 Test Item Value Reference Range Interpretation Comments POC-GLUCOSE METER 175 mg/dL 70-110 H TESTED AT [facility] 67 ([facility]) (test code = [place] [facility] 1538) [address] HEPATIC FUNCTION [id number] 06:51:00 Test Item Value Reference Range Interpretation Comments TOTAL PROTEIN ([facility]) (test code = 6.5 gm/dL 6.0-8.3 770) ALBUMIN ([facility]) (test code = 1145) 3.0 g/dL 3.5-5.0 L BILIRUBIN TOTAL ([facility]) (test code 0.8 mg/dL 0.2-1.2 = 377) BILIRUBIN DIRECT ([facility]) (test 0.5 mg/dL 0.1-0.5 code = 706) ALKALINE PHOSPHATASE ([facility]) (test 94 U/L 40-150 code = 346) AST (SGOT) ([facility]) (test code = 13 U/L 5-34 353) ALT (SGPT) ([facility]) (test code = 10 U/L 6-55 347) POCT-GLUCOSE [id number] 01:03:00 Test Item Value Reference Range Interpretation Comments POC-GLUCOSE METER 207 mg/dL 70-110 H TESTED AT [place] [address] ([facility]) (test code = [place] [facility] 1538) [address] POCT-GLUCOSE [id number] 16:52:00 Test Item Value Reference Range Interpretation Comments POC-GLUCOSE METER 296 mg/dL 70-110 H TESTED AT [place] [address] ([facility]) (test code = [place] [facility] 1538) [address] ANG, TUNNELED CATHETER [id number] 15:43:00Tunneled dialysis catheter placement, may be done carmen, hopefully no later than Saturday morning.Reason for exam:->Initiation on HD.FINAL REPORT Tunneled dialysis catheter insertion, 09/08/2018. History: Renal failure. Modality: Sonography and fluoroscopy. Sedation: Versed 1 mg and fentanyl 50 mcg was given int ravenously for conscious sedation. Vital signs were monitored throughout the procedure by a nurse, and remained stable. Physician intra-service time was 20 min. Extended Insurance Clerk: Yessenia. Supervisor Sawmill: None. Approach: Right internal jugular vein Estimated blood loss: < 5 cc. Specimen: None. FluoroscopyTime: 0.7 min. Dose (Ka,r): 140 mGy. Technique: Informed written consent was obtained. Discussion ofrisks, benefits, and alternatives were made with the patient. The patient expressed understanding and agreed to proceed. All elements maximal sterile barrier technique was utilized for this procedure, including utilization of sterile scrub solution for skin prep, a large sterile sheet to cover the area s of the patient that were not prepped, and hand hygiene, mask, head covering, and sterile gown for performing radiologist and scrub technologist. The skin was anesthetized with 2% lidocaine.Ultrasoundevaluation showed a patent and compressible right internal jugular vein, which was punctured under direct real- time ultrasound guidance with a micropuncture needle. An ultrasound image was saved to PACS. A 0.018 inch wire was placed through the needle into the right atrium. A 4 [place] micropuncture sheath was placed. A subcutaneous tunnel was created in the right anterior chest wall by blunt dissection. A 19 cm 15.5 [place] Duraflow 2 catheter was brought through the tunnel. The vessel tract was serially dilated over a J-wire. A peel-away sheath was placed in the right IJ vein and the catheter was advanced through the sheath, with its distal tip terminating in the right atrium. The peel-away sheathwas removed. The ports were flushed and aspirated [...] MDReport Verified Date/Time: 09/08/2018 15:43:17 Reading Location: [facility] P048 Angio BodyReading Room [id number] 11:56:00Medical Cytology Report Case: [id number] Authorizing Provider: Wero Sharp MD Collected: 09/04/2018 1820 Ordering Location: [address] Received: 09/05/2018 0846 Pathologist: Donnie Otoole MD Specimen: Pleural, Right RIGHT PLEURAL FLUID (CYTOSPINS AND CELL BLOCK): - REACTIVE MESOTHELIAL CELLS IN A BACKGROUND OF CHRONIC INFLAMMATION Signing Pathologist Direct Phone Line: [phone] signed by Donnie Otoole MD on 09/08/2018 at 11:56 [id number], [id number] pleural effusion,history of hepatocellular cancerRIGHT PLEURAL [id number] mls orange; 4 cytospins, cell blockCollected: [id number]: [id number] [facility], Department of Pathology, [address] [place] [address], [facility], [address] [place] [address], [facility], [facility] of [facility]ology, [address] [place] [address], UFRZ-GLUCOSE [id number] 11:51:00 Test Item Value Reference Range Interpretation Comments POC-GLUCOSE METER 166 mg/dL 70-110 H TESTED AT [place] [address] (BEAKER) ([facility] [address] TACROLIMUS [id number] 11:01:00 Test Item Value Reference Range Interpretation Comments TACROLIMUS BLOOD (BEAKER) (test 7.3 ng/mL 10.0-20.0 L code = 657) BASIC METABOLIC [id number] 07:58:00 Test Item Value Reference Range Interpretation [...] APPLICABLE FOR DIALYSIS PATIEN TS. HEPATIC FUNCTION [id number] 07:37:00 Test Item Value Reference Range Interpretation [...] 6-55 347) CBC W/PLT COUNT & AUTO [id number] 06:02:00 Test Item Value Reference Range Interpretation [...] PERCENT (BEAKER) (test code = 2801) POCT-GLUCOSE [id number] 21:57:00 Test Item Value Reference Range Interpretation Comments POC-GLUCOSE METER 156 mg/dL 70-110 H TESTED AT [facility] 6720 ([facility]) (test code = [place] 1538) [address] POCT-GLUCOSE [id number] 17:25:00 Test Item Value Reference Range Interpretation Comments POC-GLUCOSE METER 111 mg/dL 70-110 H TESTED AT [facility] 6720 ([facility]) (test code = [place] 1538) [address] BODY FLUID CULTURE + GRAM [id number] 15:07:00 Test Item Value Reference Range Interpretation Comments CULTURE (BEAKER) (test code No growth = 1095) GRAM STAIN RESULT (BEAKER) <1+ WBCs (test code = 1123) GRAM STAIN RESULT (BEAKER) No organisms seen (test code = 90267) POCT-GLUCOSE [id number] 12:46:00 Test Item Value Reference Range Interpretation Comments POC-GLUCOSE METER 87 mg/dL 70-110 TESTED AT [place] [address] ([facility]) (test code = [facility] [address]38) TACROLIMUS [id number] 11:03:00 Test Item Value Reference Range Interpretation Comments TACROLIMUS BLOOD (BEAKER) (test 10.0 ng/mL 10.0-20.0 code = 657) POCT-GLUCOSE [id number] 08:16:00 Test Item Value Reference Range Interpretation Comments POC-GLUCOSE METER 126 mg/dL 70-110 H TESTED AT [place] [address] ([facility]) (test code = [facility] 1538) [address] BASIC METABOLIC [id number] 06:40:00 Test Item Value Reference Range Interpretation [...] APPLICABLE FOR DIALYSIS PATIEN TS. HEPATIC FUNCTION [id number] 06:33:00 Test Item Value Reference Range Interpretation [...] 6-55 347) CBC W/PLT COUNT & AUTO [id number] 05:51:00 Test Item Value Reference Range Interpretation [...] PERCENT (BEAKER) (test code = 2801) POCT-GLUCOSE [id number] 21:41:00 Test Item Value Reference Range Interpretation Comments POC-GLUCOSE METER 135 mg/dL 70-110 H TESTED AT [facility] 67 ([facility]) (test code = [facility] 1538) [address] [id number] 20:16:00 Test Item Value Reference Range Interpretation Comments FERRITIN (BEAKER) (test code = 361) 73 ng/mL 5-275 POCT-GLUCOSE [id number] 18:07:00 Test Item Value Reference Range Interpretation Comments POC-GLUCOSE METER 158 mg/dL 70-110 H TESTED AT [facility] 67 ([facility]) (test code = [facility] 1538) [address] RETICULOCYTE [id number] 14:40:00 Test Item Value Reference Range Interpretation Comments RETICULOCYTE COUNT PCT (BEAKER) (test 3.7 % 0.5-1.7 H code = 575) HEPATITIS B CORE ANTIBODY, [id number] 14:27:00 Test Item Value Reference Range Interpretation Comments HEPATITIS B CORE TOTAL ANTIBODY Nonreactive Nonreactive (BEAKER) (test code = 497) TSH/FREE T4 IF [id number] 14:27:00 Test Item Value Reference Range Interpretation Comments THYROID STIMULATING HORMONE 1.44 uIU/mL 0.35-4.94 (BEAKER) (test code = 772) [id number] 14:20:00 Test Item Value Reference Range Interpretation [...] is 2.5-3.5 for patients wiht mechanical heart valves.PTH, [id number] 14:07:00 Test Item Value Reference Range Interpretation [...] 20-55 L (test code = 2590) TACROLIMUS [id number] 13:41:00 Test Item Value Reference Range Interpretation Comments TACROLIMUS BLOOD (BEAKER) (test 7.2 ng/mL 10.0-20.0 L code = 657) POCT-GLUCOSE [id number] 11:43:00 Test Item Value Reference Range Interpretation Comments POC-GLUCOSE METER 191 mg/dL 70-110 H TESTED AT [facility] 6720 ([facility]) (test code = [place] 1538) [address] POCT-GLUCOSE [id number] 08:45:00 Test Item Value Reference Range Interpretation Comments POC-GLUCOSE METER 119 mg/dL 70-110 H TESTED AT [facility] 6720 (BEAKER) (test code = [place] 1538) [address] BASIC METABOLIC [id number] 07:28:00 Test Item Value Reference Range Interpretation [...] APPLICABLE FOR DIALYSIS PATIEN TS. HEPATIC FUNCTION [id number] 07:26:00 Test Item Value Reference Range Interpretation [...] 347) hemolyzed CBC W/PLT COUNT & AUTO [id number] 06:31:00 Test Item Value Reference Range Interpretation [...] PERCENT (BEAKER) (test code = 2801) POCT-GLUCOSE [id number] 22:37:00 Test Item Value Reference Range Interpretation Comments POC-GLUCOSE METER 144 mg/dL 70-110 H TESTED AT [facility] 6720 ([facility]) (test code = [place] 1538) [address] POCT-GLUCOSE [id number] 16:48:00 Test Item Value Reference Range Interpretation Comments POC-GLUCOSE METER 207 mg/dL 70-110 H TESTED AT [facility] 67 ([facility]) (test code = [facility] [place] 1538) [address] POCT-GLUCOSE [id number] 12:16:00 Test Item Value Reference Range Interpretation Comments POC-GLUCOSE METER 191 mg/dL 70-110 H TESTED AT [facility] 67 ([facility]) (test code = [facility] 1538) [address] TACROLIMUS [id number] 11:23:00 Test Item Value Reference Range Interpretation Comments TACROLIMUS BLOOD (BEAKER) (test 5.7 ng/mL 10.0-20.0 L code = 657) BASIC METABOLIC [id number] 06:24:00 Test Item Value Reference Range Interpretation [...] APPLICABLE FOR DIALYSIS PATIEN TS. HEPATIC FUNCTION [id number] 06:22:00 Test Item Value Reference Range Interpretation [...] code = 11 U/L 6-55 347) POCT-GLUCOSE [id number] 22:19:00 Test Item Value Reference Range Interpretation Comments POC-GLUCOSE METER 195 mg/dL 70-110 H TESTED AT [facility] 6720 (BEAKER) (test code = LAWK[place]NAN Santiago [facility] 1538) [address] BODY FLUID CELL COUNT WITH [id number] 21:04:00 Test Item Value Reference Range Interpretation [...] Tube (test code = 2873) PH, BODY [id number] 19:43:00 Test Item Value Reference Range Interpretation Comments PH, BODY FLUID (BEAKER) (test code = 7.80 1530) LACTATE DEHYDROGENASE (LDH), BODY [id number] 19:41:00 Test Item Value Reference Range Interpretation [...] validated for this type of specimen.PROTEIN, BODY [id number] 19:31:00 Test Item Value Reference Range Interpretation Comments PROTEIN FLUID (BEAKER) 2.5 g/dL Light's criteria identifies (test code = 579) effusions if one or more are pre Absence of reference range indicates that normals have not been defined.Assay performance has not been validated for this type of specimen.RAD, CHEST, 1 VIEW, NON [id number] 19:14:00Reason for exam:->post right sided thoracentesisShould this [...] again noted concerning for congestive heart failure/fluid overload.The more confluent basilar lung consolidation may reflect associated passive atelectasis. Underlyingpneumonia or mass lesion cannot be excluded. Signed: Yann Steele MDRarielort Verified Date/Time: 09/04/2018 19:14:07 Reading Location: [address] Reading Room HEPATIC FUNCTION [id number] 13:48:00 Test Item Value Reference Range Interpretation [...] code = 12 U/L 6-55 347) POCT-GLUCOSE [id number] 12:07:00 Test Item Value Reference Range Interpretation Comments POC-GLUCOSE METER 171 mg/dL 70-110 H TESTED AT [place] [address] ([facility]) (test code = [place] 1538) [address] RAD, CHEST, 1 VIEW, NON [id number] 09:39:00Reason for exam:->assess lung volumesShould this be performed at the bedside?->YesFINAL REPORT Chest, 1 view, 09/04/2018 6:27 AM. History: Shortness of breath. Com parison: 08/21/2018. Discussion: The cardiomediastinal silhouette and pulmonary vasculature are prominent with hazy bilateral perihilar and bibasilar opacities, with blunting of the chest from the sulci. The soft tissues and osseous structures are intact. IMPRESSION: CHF with bibasilar atelectasis and mild bilateral pleural effusions. Signed: Alfredo Peoplesepsaint [facility]uke[facility] Verified Date/Time: 09/04/2018 09:39:09 Reading Location: [facility] Radiology Reading Room POCT- GLUCOSE [id number] 09:09:00 Test Item Value Reference Range Interpretation Comments POC-GLUCOSE METER 211 mg/dL 70-110 H TESTED AT [place] [address] (BEAKER) (test code = [place] 1538) [address] TACROLIMUS [id number] 09:06:00 Test Item Value Reference Range Interpretation Comments TACROLIMUS BLOOD (BEAKER) (test 13.6 ng/mL 10.0-20.0 code = 657) BASIC METABOLIC [id number] 06:49:00 Test Item Value Reference Range Interpretation [...] NOT APPLICABLE FOR DIALYSIS PATIEN TS. PROTHROMBIN [id number] 06:23:00 Test Item Value Reference Range Interpretation [...] is 2.5-3.5 for patients wiht mechanical heart valves.CBC W/PLT COUNT & AUTO [id number] 06:16:00 Test Item Value Reference Range Interpretation [...] PERCENT (BEAKER) (test code = 2801) POCT-GLUCOSE [id number] 01:17:00 Test Item Value Reference Range Interpretation Comments POC-GLUCOSE METER 172 mg/dL 70-110 H TESTED AT [facility] 67 ([facility]) (test code = [facility] 1538) [address] URINE IMMUNOFIXATION, [id number] 16:27:00 Test Item Value Reference Range Interpretation Comments PROTEIN, URINE 240 mg/dL 0-14 H ([facility]) (test code = 1569) ALBUMIN URINE ELP 59.2 % ([facility]) (test code = 1018) GAMMA GLOBULIN 40.8 % URINE ([facility]) (test code = 1015) URINE TOMA ID-402 Urine immunofixation ([facility]) (test code electrophoresis reveals no = 2602) monoclonal proteins or free light chains. [id number] Ian Morin M.D. 2 ([facility]) (test (electonic signature) code = 2603) IMMUNOFIXATION ELECTROPHORESIS (TOMA)2018-08-27 16:09:00 Test Item Value Reference Range Interpretation Comments IMMUNOGLOBULIN G (IGG) 1790 mg/dL 540-1,822 ([facility]) (test code = 427) IMMUNOGLOBULIN A (IGA) 282 mg/dL 63-484 ([facility]) (test code = 639) IMMUNOGLOBULIN M (IGM) 52 mg/dL 22-293 ([facility]) (test code = 638) SERUM TOMA ID ([facility]) No monoclonal (test code = 1814) proteins detected. Polyclonal distribution of immunoglobulins. [id number] Ian Morin M.D. ([facility]) (test code = (electonic signature) 2597) BODY FLUID CULTURE + GRAM [id number] 15:47:00 Test Item Value Reference Range Interpretation Comments CULTURE ([facility]) (test code No growth = 1095) GRAM STAIN RESULT ([facility]) <1+ WBCs (test code = 1123) GRAM STAIN RESULT ([facility]) No organisms seen (test code = 31422) POCT-GLUCOSE [id number] 12:14:00 Test Item Value Reference Range Interpretation Comments POC-GLUCOSE METER 210 mg/dL 70-110 H TESTED AT [facility] 6720 ([facility]) (test code = [facility] 1538) [address] [id number] 12:01:00 Test Item Value Reference Range Interpretation Comments POTASSIUM (BEAKER) (test code = 5.2 meq/L 3.5-5.1 H 379) TACROLIMUS [id number] 11:52:00 Test Item Value Reference Range Interpretation Comments TACROLIMUS BLOOD (BEAKER) (test 6.4 ng/mL 10.0-20.0 L code = 657) Please draw 30 min prior to AM dose. Thanks!POCT-GLUCOSE [id number] 08:13:00 Test Item Value Reference Range Interpretation Comments POC-GLUCOSE METER 143 mg/dL 70-110 H TESTED AT [facility] 6720 (BEAKER) (test code = BRE[place] [facility] 1538) [address] CREATININE [id number] 07:26:00 Test Item Value Reference Range Interpretation Comments CREATININE CLEARANCE (BEAKER) 10.9 mL/min 70.0-140.0 L (test code = 357) VOLUME, TOTAL (BEAKER) (test code 800 ml = 1457) CREATININE URINE (BEAKER) (test 76.9 mg/dL code = 375) PATIENT HEIGHT (CM) (BEAKER) 167.0 cm (test code = 2799) PATIENT WEIGHT (KG) (BEAKER) 95.300 kg (test code = 2800) PROTEIN, 24 HOUR [id number] 07:26:00 Test Item Value Reference Range Interpretation Comments PROTEIN, 24HR URINE (BEAKER) 2000 mg/24hr 0-300 H (test code = 1570) VOLUME, TOTAL (BEAKER) (test 800 ml code = 1457) PROTEIN, URINE (BEAKER) (test 250 mg/dL 0-14 H code = 1569) COMPREHENSIVE METABOLIC [id number] 07:17:00 Test Item Value Reference Range Interpretation [...] METER 231 mg/dL 70-110 H TESTED AT [facility] 6720 ([facility]) (test code = [place] 1538) [address] URINE PROTEIN ELECTROPHORESIS, [id number] 18:38:00 Test Item Value Reference Range Interpretation Comments PROTEIN, URINE 240 mg/dL 0-14 H (BEAKER) (test code = 1569) ALBUMIN URINE ELP 59.2 % (BEAKER) (test code = 1018) GAMMA GLOBULIN URINE 40.8 % (BEAKER) (test code = 1015) UPEP, ID-[id number] Urine protein study ([facility]) (test code consistent with = 2604) glomerular dysfunction. There is a possible band present within the gamma region. Refer to serum immunofixation electrophoresis. [id number] Karie Butcher MD ([facility]) (test code (electronic signature) = 2605) [id number] 17:59:00Medical Cytology Report Case: [id number] Authorizing Provider: Celestino Bailey MD Collected: 08/21/2018 1557 Ordering Location: [address] Received: 08/22/2018 0854 Pathologist: Mariano Cutler MD Specimen: Pleural, Right RIGHT PLEURAL FLUID (CYTOSPINS): - NO MALIGNANT CELLS IDENTIFIED (SEE COMMENT) - REACTIVE MESOTHELIAL CELLS WITH CHRONIC INFLAMMATION Signing Pathologist Direct Phone Line: [phone] signed by Mariano Cutler MD on 08/22/2018 at 5:59 PMOnly a small amount of fluid was received for cytology evaluation. If clinically discordant, repeat thoracentesis with larger amount of fluid sent for cytology evaluation may be considered. [id number] pleural effusion, history of hepatocellular cancerRIGHT PLEURAL FLUID5 mls cuca; 4 cytospinsCollected: [id number]: [id number] [facility], Department of Pathology, [address] [place], [place] [id number], [facility], Department of Pathology, [address] [place] [address], [facility], Department of [facility], [address] [place] [address], HARP-GLUCOSE [id number] 17:07:00 Test Item Value Reference Range Interpretation Comments POC-GLUCOSE METER 174 mg/dL 70-110 H TESTED AT [facility] 67 (BEAKER) (test code = BR[place] 1538) [address] PROTEIN ELECTROPHORESIS, [id number] 15:51:00 Test Item Value Reference Range Interpretation [...] region. Please refer to serum immunofixation electrophoresis. [id number] Karie Butcher MD (BEAKER) (test code (electronic signature) = 2616) PROTEIN TOTAL SERUM, 6.2 gm/dL 6.0-8.3 SPEP (BEAKER) (test code = 5040) RHEUMATOID FACTOR AB, REFLEX TO [id number] 12:56:00 Test Item Value Reference Range Interpretation Comments RHEUMATOID FACTOR (BEAKER) (test Negative code = 573) [id number] 12:47:00 Test Item Value Reference Range Interpretation Comments RPR SCREEN ([facility]) (test code = Nonreactive Nonreactive 420) POCT-GLUCOSE [id number] 12:30:00 Test Item Value Reference Range Interpretation Comments POC-GLUCOSE METER 200 mg/dL 70-110 H TESTED AT [place] [address] ([facility]) (test code = [facility] 1538) [address] OSMOLALITY, [id number] 11:29:00 Test Item Value Reference Range Interpretation Comments OSMOLALITY URINE ([facility]) (test 300 mOsm/kg 40-1,400 code = 614) OSMOLALITY, [id number] 10:58:00 Test Item Value Reference Range Interpretation Comments OSMOLALITY, SERUM ([facility]) (test 307 mOsm/kg 280-303 H code = 615) TACROLIMUS [id number] 09:13:00 Test Item Value Reference Range Interpretation Comments TACROLIMUS BLOOD ([facility]) (test 8.5 ng/mL 10.0-20.0 L code = 657) Please draw 30 min prior to AM dose. Thanks!POCT-GLUCOSE [id number] 09:01:00 Test Item Value Reference Range Interpretation Comments POC-GLUCOSE METER 156 mg/dL 70-110 H TESTED AT [place] [address] ([facility]) (test code = [facility] 1538) [address] HEPATITIS PANEL, [id number] 07:30:00 Test Item Value Reference Range Interpretation Comments HEPATITIS A IGM ANTIBODY ([facility]) Nonreactive Nonreactive (test code = 498) HEPATITIS B CORE IGM ANTIBODY Nonreactive Nonreactive ([facility]) (test code = 645) HEPATITIS C ANTIBODY ([facility]) Reactive Nonreactive A (test code = 367) HEPATITIS B SURFACE ANTIGEN (2) Nonreactive Nonreactive ([facility]) (test code = 2585) COMPREHENSIVE METABOLIC [id number] 06:31:00 Test Item Value Reference Range Interpretation Comments TOTAL PROTEIN 6.7 gm/dL 6.0-8.3 ([facility]) (test code = 770) ALBUMIN ([facility]) 3.0 g/dL 3.5-5.0 L (test code = [...] code = 413) HEPATITIS B CORE ANTIBODY, [id number] 22:36:00 Test Item Value Reference Range Interpretation Comments HEPATITIS B CORE TOTAL ANTIBODY Nonreactive Nonreactive (AKER) (test code = 497) HIV-1 ANTIGEN WITH HIV-1/2 [id number] 22:36:00 Test Item Value Reference Range Interpretation Comments HIV-1 ANTIGEN WITH HIV 1\\T\\2 Nonreactive Nonreactive ANTIBODY (2) ([facility]) (test code = 2586) COMPLEMENT COMPONENT [id number] 22:13:00 Test Item Value Reference Range Interpretation Comments C4 COMPLEMENT (BEAKER) (test code = 21 mg/dL 15-57 394) COMPLEMENT COMPONENT [id number] 22:13:00 Test Item Value Reference Range Interpretation Comments C3 COMPLEMENT (BEAKER) (test code = 81 mg/dL 82-193 L 393) [id number] 22:11:00 Test Item Value Reference Range Interpretation Comments CREATININE (BEAKER) 3.45 mg/dL 0.57-1.25 H (test code = 358) EGFR ([facility]) (test 13 mL/min/1.73 ESTIMA JUAN GFR IS code = 1092) sq m NOT ACCURATE CREATININE CLEARANCE IN PREDICTING GLOMERULAR FILTRATION RATE . ESTIMATED GFR I S NOT APPLICABLE FOR DIALYSIS PATIEN TS. POCT-GLUCOSE [id number] 21:35:00 Test Item Value Reference Range Interpretation Comments POC-GLUCOSE METER 244 mg/dL 70-110 H TESTED AT [facility] 6720 ([facility]) (test code = [place] 1538) [address] EOSINOPHIL SMEAR, [id number] 20:09:00 Test Item Value Reference Range Interpretation Comments EOSINOPHIL SMEAR, URINE ([facility]) No EOS seen No EOS seen (test code = 1851) Many bacteria seen on stained smears.PROTEIN, RANDOM [id number] 19:59:00 Test Item Value Reference Range Interpretation Comments PROTEIN, URINE (BEAKER) (test code 265 mg/dL 0-14 H = 1569) PTH, [id number] 19:43:00 Test Item Value Reference Range Interpretation Comments PARATHYROID HORMONE INTACT 330.9 pg/mL 8.5-72.5 H (BEAKER) (test code = 577) URIC [id number] 19:36:00 Test Item Value Reference Range Interpretation Comments URIC ACID (BEAKER) (test code = 7.6 mg/dL 2.6-7.2 H 773) CHLORIDE, RANDOM [id number] 19:36:00 Test Item Value Reference Range Interpretation Comments CHLORIDE URINE (BEAKER) (test code = 29 meq/L 682) Reference Range: No NormalsCREATININE, RANDOM [id number] 19:36:00 Test Item Value Reference Range Interpretation Comments CREATININE URINE (BEAKER) (test 84.6 mg/dL code = 375) Reference Range: No NormalsPOTASSIUM, RANDOM [id number] 19:36:00 Test Item Value Reference Range Interpretation Comments POTASSIUM URINE (BEAKER) (test 14.7 meq/L code = 195) Reference Range: No NormalsSODIUM, RANDOM [id number] 19:36:00 Test Item Value Reference Range Interpretation Comments SODIUM URINE (BEAKER) (test code = 48 meq/L 243) Reference Range: No NormalsBODY FLUID CELL COUNT WITH [id number] 18:20:00 Test Item Value Reference Range Interpretation [...] code = 2873) LACTATE DEHYDROGENASE (LDH), BODY [id number] 17:26:00 Test Item Value Reference Range Interpretation [...] METER 148 mg/dL 70-110 H TEST[facility] AT [place] [address] [facility] (test code = BR[place] Santiago [facility] 1538) [address] RAD, CHEST, 1 VIEW, NON [id number] 16:17:00Reason for exam:->s/p right thoracentesisShould this be [...] Rodriguez Verified Date/Time: 08/21/2018 16:17:23 Reading Location: [facility] Radiology Reading Room POCT-GLUCOSE METER 2018-08-21 12:51:00 Test Item Value Reference Range Interpretation Comments POC-GLUCOSE METER 133 mg/dL 70-110 H TESTED AT [place] [address] ([facility]) (test code = [facility] 1538) [address] TACROLIMUS [id number] 10:14:00 Test Item Value Reference Range Interpretation Comments TACROLIMUS BLOOD ([facility]) (test 7.6 ng/mL 10.0-20.0 L code = 657) Please draw 30 min prior to AM dose. Thanks!POCT-GLUCOSE [id number] 09:34:00 Test Item Value Reference Range Interpretation Comments POC-GLUCOSE METER 108 mg/dL 70-110 TESTED AT [place] [address] ([facility]) (test code = [facility] 1538) [address] POCT-GLUCOSE [id number] 08:41:00 Test Item Value Reference Range Interpretation Comments POC-GLUCOSE METER 45 mg/dL 70-110 L TESTED AT [place] [address] ([facility]) (test code = [facility] [address] 1538) POCT-GLUCOSE [id number] 08:22:00 Test Item Value Reference Range Interpretation Comments POC-GLUCOSE METER 37 mg/dL 70-110 LL TESTED AT [place] [address] ([facility]) (test code = [facility] [address] 1538) COMPREHENSIVE METABOLIC [id number] 06:29:00 Test Item Value Reference Range Interpretation [...] S NOT APPLICABLE FOR DIALYSIS PATIEN TS. [id number] 06:18:00 Test Item Value Reference Range Interpretation [...] 0-0 (BEAKER) (test code = 413) POCT-GLUCOSE [id number] 21:32:00 Test Item Value Reference Range Interpretation Comments POC-GLUCOSE METER 197 mg/dL 70-110 H TESTED AT [facility] 6720 (BEAKER) (test code = [place] 1538) [address] PH, BODY [id number] 19:33:00 Test Item Value Reference Range Interpretation Comments PH, BODY FLUID (BEAKER) (test code = 7.75 1530) ALBUMIN, BODY [id number] 19:29:00 Test Item Value Reference Range Interpretation Comments ALBUMIN FLUID (BEAKER) (test code = 1.5 gm/dL 501) Reference Range: No Normals Assay performance has not been validated for this type of specimen.BODY FLUID CELL COUNT WITH [id number] 19:26:00 Test Item Value Reference Range Interpretation [...] code = 2873) LACTATE DEHYDROGENASE (LDH), BODY [id number] 19:22:00 Test Item Value Reference Range Interpretation [...] validated for this type of specimen.TRIGLYCERIDES, BODY [id number] 19:22:00 Test Item Value Reference Range Interpretation Comments TRIGLYCERIDES FLUID (BEAKER) (test 32 mg/dL code = 539) Reference Range: No Normals Assay performance has not been validated for this type of specimen.RAD, CHEST, 1 VIEW, NON [id number] 19:16:00Reason for exam:->left thoracentesisShould this be performed at the bedside?->Yes FINAL REPORT Chest, 1 view Clinical history: left thoracentesis Comparison: 08/18/2018 Discussion: Status post left thoracentesis without pneumothorax. Interval decrease in left pleural effusion. Again seen is a layering right pleural effusion. The cardiac silhouette is enlarged with perihilar pulmonary edema. No acute osseous abnormality is seen. Signed: Bud Wongort Verified Date/Time: 08/20/2018 19:16:27 Reading Location: [facility] C013X Ortho Consult Reading Room U/S, [id number] 18:21:00Laterality?- >LeftReason for exam:->pleural effusionFINAL REPORT PROCEDURE: Ultrasound-guided thoracentesis INDICATION: [id number]-dzgx-svzacvhi with left pleural effusion. DESCRIPTION: After obtaining informed written consent, ultrasound scan showed pleural effusion on the left. The overlying skin was prepped and draped in the usual, sterile fashion and local 2% lidocaine anesthesia was administered. A 4 [place] catheter was advanced into the pleural cavity and 1200 cc of serous fluid was removed. The catheter was removed without immediate complication. Samples were sent for analysis. IMPRESSION:Uncomplicated ultrasound-guided left thoracentesis with 1200 cc fluid removed. Signed: Bello Sauceda MDReport Verified Date/Time: 08/20/2018 18:21:53 Reading Location: [facility] P006J Ultrasound Reading Room POCT-GLUCOSE [id number] 11:46:00 Test Item Value Reference Range Interpretation Comments POC-GLUCOSE METER 173 mg/dL 70-110 H TESTED AT [place] [address] ([facility]) (test code = [place] 1538) [address] [id number] 10:26:00 Test Item Value Reference Range Interpretation Comments PROTIME ([facility]) (test code = 14.1 seconds 11.9-14.2 759) INR ([facility]) (test code = 370) 1.2 <=5.9 PARTIAL THROMBOPLASTIN TIME 39.4 seconds 22.5-36.0 H ([facility]) (test code = 760) Effective 08/20/2018: PT Reference Range ChangeNew: 11.9-14.2 Previous: 11.7- 14.7RECOMMENDED COUMADIN/WARFARIN INR THERAPY RANGESSTANDARD DOSE: 2.0-3.0 Includes: PROPHYLAXIS for venous thrombosis, systemic embolization; TREATMENT for venous thrombosis and/or pulmonary embolus.HIGH RISK: Target INR is 2.5-3.5 for patients wiht mechanical heart valves.TACROLIMUS [id number] 10:20:00 Test Item Value Reference Range Interpretation Comments TACROLIMUS BLOOD ([facility]) (test 7.2 ng/mL 10.0-20.0 L code = 657) Please draw 30 min prior to AM dose. Thanks!POCT-GLUCOSE [id number] 08:05:00 Test Item Value Reference Range Interpretation Comments POC-GLUCOSE METER 64 mg/dL 70-110 L TESTED AT [place] [address] ([facility]) (test code = BR[place] [facility] [address] 1538) CBC W/PLT COUNT & AUTO [id number] 07:03:00 Test Item Value Reference Range Interpretation Comments WHITE BLOOD CELL COUNT ([facility]) 4.2 K/ L 3.5-10.5 (test code = 775) RED BLOOD CELL COUNT ([facility]) 3.03 M/ L 3.93-5.22 L (test code = 761) HEMOGLOBIN (BEAKER) (test code = 7.7 GM/DL 11.2-15.7 L 410) HEMATOCRIT ([facility]) (test code = 24.9 % 34.1-44.9 L [...] (BEAKER) (test code = 2801) BASIC METABOLIC [id number] 06:57:00 Test Item Value Reference Range Interpretation Comments SODIUM (BEAKER) 138 meq/L 136-145 (test code = 381) POTASSIUM (BEAKER) 4.5 meq/L 3.5-5.1 (test code = 379) CHLORIDE (BEAKER) 108 meq/L 98-107 H (test code = 382) CO2 (BEAKER) (test 23 meq/L 22-29 code = 355) BLOOD UREA NITROGEN 48 mg/dL 7-21 H ([facility]) (test code = 354) CREATININE ([facility]) 2.81 mg/dL 0.57-1.25 H (test code = 358) GLUCOSE RANDOM 36 mg/dL 70-105 LL ([facility]) (test code = 652) CALCIUM ([facility]) 8.4 mg/dL 8.4-10.2 (test code = 697) EGFR ([facility]) (test 17 mL/min/1.73 ESTIMA JUAN GFR IS code = 1092) sq m NOT ACCURATE CREATININE CLEARANCE IN PREDICTING GLOMERULAR FILTRATION RATE . ESTIMATED GFR I S NOT APPLICABLE FOR DIALYSIS PATIEN TS. [id number] 06:44:00 Test Item Value Reference Range Interpretation Comments MAGNESIUM ([facility]) (test code = 2.5 mg/dL 1.6-2.6 627) POCT-GLUCOSE [id number] 22:17:00 Test Item Value Reference Range Interpretation Comments POC-GLUCOSE METER 131 mg/dL 70-110 H TESTED AT [place] [address] ([facility]) (test code = BRENDA [place] [facility] 1538) [address] POCT-GLUCOSE [id number] 16:56:00 Test Item Value Reference Range Interpretation Comments POC-GLUCOSE METER 124 mg/dL 70-110 H TESTED AT [place] [address] ([facility]) (test code = BRENDA Santiago [facility] 1538) [address] POCT-GLUCOSE [id number] 13:01:00 Test Item Value Reference Range Interpretation Comments POC-GLUCOSE METER 101 mg/dL 70-110 TESTED AT [place] [address] ([facility]) (test code = BRENDA [place] [facility] 1538) [address] TACROLIMUS [id number] 08:59:00 Test Item Value Reference Range Interpretation Comments TACROLIMUS BLOOD ([facility]) (test 5.4 ng/mL 10.0-20.0 L code = 657) Please draw 30 min prior to AM dose. Thanks!POCT-GLUCOSE [id number] 08:57:00 Test Item Value Reference Range Interpretation Comments POC-GLUCOSE METER 125 mg/dL 70-110 H TESTED AT [facility] 67 ([facility]) (test code = BRENDA [place] [facility] 1538) [address] POCT-GLUCOSE [id number] 08:30:00 Test Item Value Reference Range Interpretation Comments POC-GLUCOSE METER 48 mg/dL 70-110 L TESTED AT [facility] 6720 (BEAKER) (test code = [place] [id number]) COMPREHENSIVE METABOLIC [id number] 06:46:00 Test Item Value Reference Range Interpretation [...] (BEAKER) (test code = 413) U/S, ABDOMINAL, [id number] 03:23:00Abdomen limited area? Add comment if clarification [...] Unremarkable. Body and tail: Not well-seen. Right kidney:Size: 11.0 x 4.4 x 5.2 cm. Parenchyma: Normal echogenicity. No cysts. No stones. Hydronephrosis: None. Ascites: None. Regional Vasculature: The visible abdominal aorta, IVC and hepatic veins are patent. The aorta measures 2.3 cm proximally, 1.7 cm in the midportion, distally not well-seen secondary topoor acoustic windowing. Additional findings: Small to moderate right pleural effusion.. IMPRESSION: Postsurgical changes of an orthotopic liver transplant with slightly coarsened hepatic echotexture suggesting hepatocellular dysfunction. Small to moderate volume right pleural effusion. Signed: Aminata Fuentes Verified Date/Time: 08/19/2018 03:23:10 Reading Location: [facility] C013T Transitional Reading Room POCT-GLUCOSE [id number] 22:31:00 Test Item Value Reference Range Interpretation Comments POC-GLUCOSE METER 123 mg/dL 70-110 H TESTED AT [place] [address] ([facility]) (test [facility] = [facility] [place] [address]) [address] POCT-GLUCOSE [id number] 18:04:00 Test Item Value Reference Range Interpretation Comments POC-GLUCOSE METER 138 mg/dL 70-110 H TESTED AT [place] [address] ([facility]) (test code = [facility] [place] 15[address]) [address] RAD, CHEST, 2 [id number] 13:39:00Reason for exam:->bilateral effusions, dyspneaFINAL REPORT INDICATION: [...] mild central edema. Signed: JR Mclean Robert MDReport Verified Date/Time: 08/18/2018 13:39:03 Reading Location: [facility] C013V Neuro Reading Room POCT-GLUCOSE [id number] 12:06:00 Test Item Value Reference Range Interpretation Comments POC-GLUCOSE METER 116 mg/dL 70-110 H TESTED AT [place] [address] ([facility]) (test code = [facility] [place] 15[address]) [address] TACROLIMUS [id number] 09:28:00 Test Item Value Reference Range Interpretation Comments TACROLIMUS BLOOD ([facility]) (test 5.1 ng/mL 10.0-20.0 L code = 657) Please draw 30 min prior to AM dose. Thanks!HEMOGLOBIN [id number] 08:28:00 Test Item Value Reference Range Interpretation Comments HEMOGLOBIN A1C (BEAKER) (test code = 5.5 % 4.3-6.1 368) POCT-GLUCOSE [id number] 08:07:00 Test Item Value Reference Range Interpretation Comments POC-GLUCOSE METER 111 mg/dL 70-110 H TESTED AT [facility] 6720 (BEAKER) (test code = [place] [address]) [address] COMPREHENSIVE METABOLIC [id number] 07:18:00 Test Item Value Reference Range Interpretation [...] 0-0 (BEAKER) (test code = 413) POCT-GLUCOSE [id number] 17:32:00 Test Item Value Reference Range Interpretation Comments POC-GLUCOSE METER 91 mg/dL 70-110 TESTED AT [facility] 6720 (BEAKER) (test code = [place] [facility] [address] 1538) CT, CHEST, WITHOUT [id number] 16:51:00FINAL REPORT INDICATION: Shortness of breath. COMPARISON:None. TECHNIQUE: ChestCT exam WITHOUT intravenous contrast. The exam was [...] MDReport Verified Date/Time: 08/17/2018 16:51:05 Reading Location: [facility] B1 C013Y CT Body Reading Room POCT-GLUCOSE [id number] 16:23:00 Test Item Value Reference Range Interpretation Comments POC-GLUCOSE METER 46 mg/dL 70-110 L TESTED AT [facility] 6720 (BEAKER) (test code = [place] [facility] [address] 1538) B-TYPE NATRIURETIC FACTOR (BNP)2018-08-17 15:08:00 Test Item Value Reference Range Interpretation Comments B-TYPE NATRIURETIC PEPTIDE (BEAKER) 549 pg/mL 0-100 H (test code = 700) URINALYSIS WITH MICROSCOPIC IF [id number] 14:47:00 Test Item Value Reference Range Interpretation [...] 463) SOURCE(BEAKER) (test code = 2795) URINALYSIS [id number] 14:47:00 Test Item Value Reference Range Interpretation Comments RBC UA (BEAKER) (test code = 519) < /HPF WBC UA (BEAKER) (test code = 520) 1 /HPF SQUAMOUS EPITHELIAL (BEAKER) (test 1 /HPF code = 516) POCT-GLUCOSE [id number] 12:28:00 Test Item Value Reference Range Interpretation Comments POC-GLUCOSE METER 75 mg/dL 70-110 TESTED AT [place] [address] ([facility]) (test code = [facility] [address]) TACROLIMUS [id number] 09:04:00 Test Item Value Reference Range Interpretation Comments TACROLIMUS BLOOD (BEAKER) (test 6.2 ng/mL 10.0-20.0 L code = 657) POCT-GLUCOSE [id number] 08:53:00 Test Item Value Reference Range Interpretation Comments POC-GLUCOSE METER 87 mg/dL 70-110 TESTED AT [place] [address] ([facility]) (test code = [facility] [address]38) POCT-GLUCOSE [id number] 08:40:00 Test Item Value Reference Range Interpretation Comments POC-GLUCOSE METER 57 mg/dL 70-110 L TESTED AT [place] [address] ([facility]) (test code = [facility] [address]) B-TYPE NATRIURETIC FACTOR (BNP)2018-08-17 06:16:00 Test Item Value Reference Range Interpretation Comments B-TYPE NATRIURETIC PEPTIDE (BEAKER) 513 pg/mL 0-100 H (test code = 700) COMPREHENSIVE METABOLIC [id number] 06:16:00 Test Item Value Reference Range Interpretation [...] PATIEN TS. CBC W/PLT COUNT & AUTO [id number] 05:51:00 Test Item Value Reference Range Interpretation [...] PERCENT (BEAKER) (test code = 2801) POCT-GLUCOSE [id number] 02:09:00 Test Item Value Reference Range Interpretation Comments POC-GLUCOSE METER 85 mg/dL 70-110 TESTED AT [facility] 67[address] ([facility]) (test code = [place] [facility] [address]) HEPATITIS C PCR, [id number] 13:59:00 Test Item Value Reference Range Interpretation Comments HCV RESULT COMPONENT HCV RNA not detected HCV RNA not detected (BEAKER) (test code = 2699) This test uses a Real-Time Polymerase Chain Reaction (RT-PCR) methodology and was performed using LAZ Ampliprep/LAZ TaqMan HCV test kit version 2.0 ([employer]).Reportable range for this assay is 15 - 100,000,000 IU per mL (1.18 - 8.00 Log IU/mL).TACROLIMUS [id number] 13:46:00 Test Item Value Reference Range Interpretation Comments TACROLIMUS BLOOD (BEAKER) (test 9.6 ng/mL 10.0-20.0 L code = 657) ALPHA FETOPROTEIN (AFP), TUMOR [id number] 13:23:00 Test Item Value Reference Range Interpretation Comments ALPHA-FETOPROTEIN (BEAKER) (test code < ng/mL <10.0 = 1094) Effective 02/09/2014: Reference Range ChangeNew: <10.0 Previous: 0.0-8.0 [id number] 13:04:00 Test Item Value Reference Range Interpretation Comments PHOSPHORUS (BEAKER) (test code = 4.5 mg/dL 2.3-4.7 604) [id number] 13:04:00 Test Item Value Reference Range Interpretation Comments MAGNESIUM (BEAKER) (test code = 2.3 mg/dL 1.6-2.6 627) COMPREHENSIVE METABOLIC [id number] 13:04:00 Test Item Value Reference Range Interpretation [...] NOT APPLICABLE FOR DIALYSIS PATIEN TS. LIPID [id number] 13:04:00 Test Item Value Reference Range Interpretation Comments TRIGLYCERIDES (BEAKER) (test code = 170 mg/dL 540) CHOLESTEROL (BEAKER) (test code = 175 mg/dL 631) HDL CHOLESTEROL (BEAKER) (test code 52 mg/dL = 976) LDL CHOLESTEROL CALCULATED (BEAKER) 89 mg/dL (test code = 633) Triglyceride Reference Range: Low Risk <150 Borderline 150-199 High Risk 200- 499 Very High Risk >=500Cholesterol Reference Range: Low Risk <200 Borderline 200-239 High Risk >240HDL Cholesterol Reference Range: Low Risk >=60 High Risk <40LDL Cholesterol Reference Range: Optimal <100 Near Optimal 100-129 Borderline 130-159 High 160-189 Very High >=190BILIRUBIN, [id number] 13:04:00 Test Item Value Reference Range Interpretation Comments BILIRUBIN DIRECT (BEAKER) (test 0.2 mg/dL 0.1-0.5 code = 706) CBC W/PLT COUNT & AUTO [id number] 12:37:00 Test Item Value Reference Range Interpretation [...] L 0.00-0.20 (test code = 417) 0.00POCT-GLUCOSE [id number] 13:29:00 Test Item Value Reference Range Interpretation Comments POC-GLUCOSE METER 77 mg/dL 70-110 TESTED AT [place] [address] ([facility]) (test code = [facility] [address]) POCT-GLUCOSE [id number] 13:28:00 Test Item Value Reference Range Interpretation Comments POC-GLUCOSE METER 100 mg/dL 70-110 TESTED AT [place] [address] ([facility]) (test code = [facility] 1538) [address] POCT-GLUCOSE [id number] 12:04:00 Test Item Value Reference Range Interpretation Comments POC-GLUCOSE METER 69 mg/dL 70-110 L TESTED AT [place] [address] ([facility]) (test code = [facility] [address]) CREATINE KINASE (CK), TOTAL AND [id number] 09:47:00 Test Item Value Reference Range Interpretation Comments CREATINE KINASE TOTAL (BEAKER) 38 U/L 29-200 (test code = 380) CREATINE KINASE-MB (BEAKER) (test 1.1 ng/mL 0.0-6.6 code = 750) CREATINE KINASE-MB INDEX (BEAKER) 2.9 % (test code = 395) Effective 02/09/2014: CK-MB Reference Range ChangeNew: 0.0-6.6 Previous: 0.0-4.9CK-MB Reference Range:<6.7 Normal6.7-10.0 Borderline>10.0 Abnormal TACROLIMUS [id number] 09:04:00 Test Item Value Reference Range Interpretation Comments TACROLIMUS BLOOD (BEAKER) (test 9.5 ng/mL 10.0-20.0 L code = 657) TROPONIN [id number] 08:43:00 Test Item Value Reference Range Interpretation Comments TROPONIN I (BEAKER) (test code = 0.01 ng/mL 0.00-0.03 397) Effective 02/09/2014: Reference Range ChangeNew: 0.00-0.03 Previous 0.00- 0.15Troponin I (TnI) levelsmust be interpreted in the context of the [...] failure, acidosis, acute neurological disease, and persistent tachyarrhythmia.HEPATIC FUNCTION [id number] 05:43:00 Test Item Value Reference Range Interpretation [...] = 10 U/L 6-55 347) BASIC METABOLIC [id number] 05:43:00 Test Item Value Reference Range Interpretation [...] PATIEN TS. CBC W/PLT COUNT & AUTO [id number] 05:33:00 Test Item Value Reference Range Interpretation [...] L 0.00-0.20 (test code = 417) 0.00TROPONIN [id number] 22:47:00 Test Item Value Reference Range Interpretation Comments TROPONIN I (BEAKER) (test code = 397) < ng/mL 0.00-0.03 Effective 02/09/2014: Reference Range ChangeNew: 0.00-0.03 Previous 0.00- 0.15Troponin I (TnI) levelsmust be interpreted in the context of the [...] failure, acidosis, acute neurological disease, and persistent tachyarrhythmia.POCT-GLUCOSE [id number] 21:47:00 Test Item Value Reference Range Interpretation Comments POC-GLUCOSE METER 183 mg/dL 70-110 H TESTED AT [facility] 67[address] ([facility]) (test code = [place] [facility] [address]) [address] CREATINE KINASE (CK), TOTAL AND [id number] 16:27:00 Test Item Value Reference Range Interpretation Comments CREATINE KINASE TOTAL ([facility]) 36 U/L 29-200 (test code = 380) CREATINE KINASE-MB ([facility]) (test 1.4 ng/mL 0.0-6.6 code = 750) CREATINE KINASE-MB INDEX ([facility]) 3.9 % (test code = 395) Effective 02/09/2014: CK-MB Reference Range ChangeNew: 0.0-6.6 Previous: 0.0-4.9CK-MB Reference Range:<6.7 Normal6.7-10.0 Borderline>10.0 Abnormal TROPONIN [id number] 16:27:00 Test Item Value Reference Range Interpretation Comments TROPONIN I ([facility]) (test code = 397) < ng/mL 0.00-0.03 Effective 02/09/2014: Reference Range ChangeNew: 0.00-0.03 Previous 0.00- 0.15Troponin I (TnI) levelsmust be interpreted in the context of the [...] failure, acidosis, acute neurological disease, and persistent tachyarrhythmia.POCT-GLUCOSE [id number] 16:09:00 Test Item Value Reference Range Interpretation Comments POC-GLUCOSE METER 95 mg/dL 70-110 TESTED AT [facility] 67[address] ([facility]) (test code = [place] [facility] [id number])
[2022-05-14] MEDS ORDERED: D10W 250 ML IV ONE (03:30)
[2022-05-14 03:38] LABS: Absolute Lymphocytes (CBC) 0.7 K/uL (0.7-4.9); Hematocrit 36.1 % (36.0-45.0); Lymphocytes % 12.7 % (15.3-44.8); MCV 89.7 fL (80-100); MPV 7.3 fL (7.6-11.3); RBC Red Blood Cell Count 4.02 M/uL (3.86-4.86)
[2022-05-14 03:55] LABS: Albumin 2.6 g/dL (3.4-5.0); Bilirubin Total 0.6 mg/dL (0.2-1.0); Potassium 4.3 mmol/L (3.5-5.1); Protein, Total 7.6 g/dL (6.4-8.2); Troponin High Sensitivity 33.2 pg/mL (<58.9)
[2022-05-14] MEDS ORDERED: AZITHROMYCIN 500 MG INJ IVPB ONE (04:40)
[2022-05-14] MEDS ORDERED: CEFTRIAXONE 2000 MG/VIAL ONE (04:40)
[2022-05-14] MEDS ORDERED: ONDANSETRON 4 MG/2 ML VIAL ONE (04:40)
[2022-05-14] MEDS ORDERED: NA CHLORIDE 0.9% 250 ML ONE ×3 (04:40→08:21)
[2022-05-14] MEDS ORDERED: NA CHLORIDE 0.9% 100 ML ONE (04:43)
--- NOTE | 2022-05-14 05:04 | EDPHYS ---
Physician Documentation [facility] Name: Lisa Ko Age: 67 yrs Sex: Female : 1955 Arrival Date: 05/14/2022 Time: 03:10 Bed 19 Private MD: ED Physician Gatito Chavez HPI: 05/14 04:05 This 67 yrs old Female presents to ER via EMS with complaints of Shortness of breath. rt 04:06 Patient with history of asbestosis presents to the ED with dyspnea starting this rt evening. She states that she is chronically dyspneic but acutely worsened tonight. She was found to be hypotensive by EMS arrival as well as hypoxic. She has no baseline oxygen requirement, sats were in the mid 80s. Patient was hypoglycemic to the 40s. Denies fever, chills. Denies other acute complaints at this time, symptoms are moderate severity, no other aggravating alleviating factors.. Historical: - Allergies: 04:02 Codeine; jb4 04:02 Levaquin (rash); jb4 - PMHx: 04:02 Diabetes - IDDM; Dialysis-M/W/F; HD; Hypertension; neuropathy; liver transplant; liver jb4 cancer; TIA; - Immunization history:: Adult Immunizations unknown. - Social history:: Smoking status: Patient/guardian denies using tobacco, but has a distant history of tobacco abuse. - Family history:: not pertinent. ROS: 04:06 Constitutional: Negative for fever, chills, and weight loss, Cardiovascular: Negative rt for chest pain, palpitations, and edema, Abdomen/GI: Negative for abdominal pain, nausea, vomiting, diarrhea, and constipation, MS/Extremity: Negative for injury and deformity, Skin: Negative for injury, rash, and discoloration, Neuro: Negative for headache, weakness, numbness, tingling, and seizure, Psych: Negative for depression, anxiety, suicide ideation, homicidal ideation, and hallucinations. 04:06 Respiratory: Positive for cough, shortness of breath. Exam: 04:06 Constitutional: This is a well developed, well nourished patient who is awake, alert, rt and in no acute distress. Head/Face: Normocephalic, atraumatic. Chest/axilla: Normal chest wall appearance and motion. Nontender with no deformity. No lesions are appreciated. Cardiovascular: Regular rate and rhythm with a normal S1 and S2. No gallops, murmurs, or rubs. Normal PMI, no JVD. No pulse deficits. Abdomen/GI: Soft, non-tender, with normal bowel sounds. No distension or tympany. No guarding or rebound. No evidence of tenderness throughout. Skin: Warm, dry with normal turgor. Normal color with no rashes, no lesions, and no evidence of cellulitis. MS/ Extremity: Pulses equal, no cyanosis. Neurovascular intact. Full, normal range of motion. Neuro: Awake and alert, GCS 15, oriented to person, place, time, and situation. Cranial nerves II-XII grossly intact. Motor strength 5/5 in all extremities. Sensory grossly intact. Cerebellar exam normal. Normal gait. Psych: Awake, alert, with orientation to person, place and time. Behavior, mood, and affect are within normal limits. 04:06 ECG was reviewed by the Attending Physician. 04:06 Respiratory: Wheezes heard on all lung malone, mild respiratory distress. Vital Signs: 03:23 BP 134 / 97; Pulse 71; Resp 13; Temp 98.7(O); Pulse Ox 84% on R/A; Weight 65.77 kg (R); jb4 Height 5 ft. 5 in. (165.10 cm) (R); Pain 0/10; 05:00 BP 102 / 45; Pulse 67; Resp 19; Temp 97.5(TE); Pulse Ox 91% on 3 lpm NC; jb4 06:00 BP 77 / 32; Pulse 71; Resp 20; Pulse Ox 92% on 3 lpm NC; jb4 06:30 BP 88 / 41; Pulse 70; Resp 19; Temp 97.7(TE); Pulse Ox 95% on 3 lpm NC; jb4 06:46 BP 94 / 37; Pulse 69; Resp 19; Pulse Ox 92% 3 lpm ; jb4 07:09 BP 98 / 42; Pulse 67; Resp 18; Pulse Ox 97% on 3 lpm NC; ko1 03:23 Body Mass Index 24.13 (65.77 kg, 165.10 cm) jb4 03:23 97% 3L NC jb4 MDM: 03:13 Patient medically screened. rt 05:04 Differential diagnosis: Pneumonia, pneumothorax, pulmonary edema, pulmonary embolism. rt Antibiotic administration: Rocephin and Zithromax given. Data reviewed: vital signs, nurses notes. Consideration of Admission/Observation Patient was admitted/placed on observation. Management of patient was discussed with the following: Hospitalist: Agrees to admit. I considered the following discharge prescriptions or medication management in the emergency department Medications were administered in the Emergency Department. See MAR. Independent interpretation of the following test(s) in the Emergency Department X-Ray: My interpretation is New right-sided effusion, possible pneumonia on my interpretation of x-ray images. Test considered but Not performed: CT: Low suspicion for pulmonary embolism, CT scan not indicated.. Counseling: I had a detailed discussion with the patient and/or guardian regarding: the historical points, exam findings, and any diagnostic results supporting the discharge/admit diagnosis, lab results, radiology results, the need for further work-up and treatment in the hospital. Response to treatment: the patient's symptoms have markedly improved after treatment. 05/14 03:13 Order name: CBC with Diff rt 05/14 03:13 Order name: CMP rt 05/14 03:13 Order name: Troponin High Sensitivity rt 05/14 03:13 Order name: Lactate w/ 2H reflex if indic. rt 05/14 03:13 Order name: Blood Culture Adult (2) rt 05/14 03:35 Order name: Glucose, Ancillary Testing; Complete Time: 04:01 EDMS 05/14 03:43 Order name: CBC with Automated Diff; Complete Time: 04:01 EDMS 05/14 03:55 Order name: Lactate w/ 2H reflex if indic.; Complete Time: 04:01 EDMS 05/14 03:59 Order name: Comprehensive Metabolic Panel; Complete Time: 04:01 EDMS 05/14 03:59 Order name: Troponin High Sensitivity; Complete Time: 04:01 EDMS 05/14 05:11 Order name: ABG la1 05/14 05:31 Order name: Glucose, Ancillary Testing; Complete Time: 07:54 EDMS 05/14 06:08 Order name: ABG Arterial Blood Gas; Complete Time: 07:54 EDMS 05/14 06:39 Order name: COVID-19/FLU A+B mw2 05/14 03:13 Order name: EKG; Complete Time: 03:14 rt 05/14 03:13 Order name: EKG - Nurse/Tech; Complete Time: 03:55 rt 05/14 03:13 Order name: Chest Single View XRAY rt 05/14 06:53 Order name: Blood Culture EDMS 05/14 07:36 Order name: COVID-19/FLU A+B; Complete Time: 07:54 EDMS 05/14 07:48 Order name: CT; Complete Time: 07:54 EDMS 05/14 08:01 Order name: BIPAP jean claude 05/14 08:23 Order name: Glucose, Ancillary Testing EDMS EC:06 Rate is 68 beats/min. Rhythm is regular, Normal Sinus Rhythm with Left bundle branch rt block. QRS [place] is Normal. AR interval is normal. QRS interval is normal. QT interval is normal. Administered Medications: 03:23 Drug: DuoNeb (albuterol 2.5 mg, ipratropium 0.5 mg) (3:1) (2.5 mg - 0.5 mg) 3 ml Route: jb4 Nebulizer; 03:30 Drug: D10 in Water [2 mL/kg] 250 ml Route: IVP; Site: right forearm; jb4 04:00 Follow up: Response: No adverse reaction; Marked relief of symptoms; Blood sugar is jb4 elevated 04:58 Drug: Zofran (Ondansetron) 4 mg Route: IVP; Site: right forearm; jb4 05:28 Follow up: Response: No adverse reaction; Marked relief of symptoms jb4 04:58 Drug: Rocephin - (cefTRIAXone) 2 grams Route: IVPB; Infused Over: 30 mins; Site: right jb4 forearm; 05:28 Follow up: Response: No adverse reaction; IV Status: Completed infusion; IV Intake: jb4 100ml 04:58 Drug: AZITHromycin 500 mg Route: IVPB; Infused Over: 1 hrs; Site: right forearm; jb4 05:28 Drug: NS 0.9% 500 ml Route: IV; Rate: bolus; Site: right forearm; jb4 06:24 Drug: NS 0.9% 250 ml Route: IV; Rate: bolus; Site: right forearm; jb4 06:44 Follow up: Response: No adverse reaction; IV Status: Completed infusion; IV Intake: jb4 250ml 06:56 Drug: Lactated Ringers Solution 1000 ml Route: IV; Rate: 100 ml/hr; Site: right forearm;jb4 Disposition Summary: 05/14/22 08:01 Transfer Ordered Transfer Location: [facility] jean claude Reason: Higher level of care jean claude Condition: Serious(05/14/22 08:01) jean claude Problem: new(05/14/22 08:01) jean claude Symptoms: have improved(05/14/22 08:01) jean claude Accepting Physician: to [facility](05/14/22 09:25) ko1 Diagnosis - Acute and chronic respiratory failure with hypercapnia jean claude - Acute and chronic respiratory failure with hypoxia jean claude - Hypotension, unspecified(05/14/22 08:01) jean claude - Pleural effusion in other conditions classified elsewhere jean claude - Liver transplant status jean claude - End stage renal disease - on hd m,w,f jean claude - Hypoglycemia, unspecified(05/14/22 08:01) jean claude Forms: - Medication Reconciliation Form jean claude - SBAR form jean claude Signatures: Dispatcher [employer] EDGatito Navarrete MD MD cha Bryson, James, RN RN jb4 Ashley Hurst RN RN ko1 Jake Sandoval MD MD rt Corrections: (The following items were deleted from the chart) 07:58 05:04 Observation rt jean claude 07:58 05:04 Pineda Tejada rt jean claude 07:58 05:04 Telemetry/MedSurg (observation) rt jean claude 07:58 05:04 Fair rt jean claude 07:58 05:04 an acute exacerbation rt jean claude 07:58 05:04 have improved rt jean claude 07:58 05:04 Standard rt jean claude 07:58 05:04 rt jean claude 07:58 05:04 Chronic respiratory failure with hypoxia rt jean claude 07:58 05:04 Hypoglycemia, unspecified rt jean claude 07:58 05:04 Hypotension, unspecified rt jean claude 09:25 08:01 to icu [facility] jean claude ko1
--- NOTE | 2022-05-14 05:04 | ER ---
Nurse's Notes [facility] Name: Lisa Ko Age: 67 yrs Sex: Female : 1955 Arrival Date: 05/14/2022 Time: 03:10 Bed 19 Private MD: Diagnosis: Acute and chronic respiratory failure with hypercapnia;Acute and chronic respiratory failure with hypoxia;Hypotension, unspecified;Pleural effusion in other conditions classified elsewhere;Liver transplant status;End stage renal disease-on hd m,w,f;Hypoglycemia, unspecified Presentation: 05/14 03:23 Chief complaint: EMS states: Pt called for Shortness of breath, upon arrival pt was 85% jb4 on RA, 94-95 on 3L NC. pt initial b/p was 85/42, b/p prior to arrival 102/54. Given 15G of oral glucose for BGL of 49. 250ml on LR via 20g RFA. 03:23 Coronavirus screen: At this time, the client does not indicate any symptoms associated jb4 with coronavirus-19. Ebola Screen: No symptoms or risks identified at this time. Initial Sepsis Screen: Does the patient meet any 2 criteria? No. Patient's initial sepsis screen is negative. Does the patient have a suspected source of infection? No. Patient's initial sepsis screen is negative. Risk Assessment: Do you want to hurt yourself or someone else? Patient reports no desire to harm self or others. Onset of symptoms was May 14, 2022. Transition of care: patient was not received from another setting of care. 03:23 Method Of Arrival: EMS: [facility] jb4 03:23 Acuity: VANDA 2 jb4 Historical: - Allergies: 04:02 Codeine; jb4 04:02 Levaquin (rash); jb4 - PMHx: 04:02 Diabetes - IDDM; Dialysis-M/W/F; HD; Hypertension; neuropathy; liver transplant; liver jb4 cancer; TIA; - Immunization history:: Adult Immunizations unknown. - Social history:: Smoking status: Patient/guardian denies using tobacco, but has a distant history of tobacco abuse. - Family history:: not pertinent. Screenin:30 [facility] [place] ED Fall Risk Assessment (Adult) History of falling in the last 3 months, jb4 including since admission No falls in past 3 months (0 pts) Confusion or Disorientation No (0 pts) Score/Fall Risk Level 0 - 2 = Low Risk Oriented to surroundings, Maintained a safe environment. Abuse screen: Denies threats or abuse. Nutritional screening: No deficits noted. Tuberculosis screening: No symptoms or risk factors identified. Assessment: 03:30 General: Appears in no apparent distress. uncomfortable, ill, Behavior is cooperative, jb4 anxious. Pain: Denies pain. Neuro: Level of Consciousness is awake, alert, obeys commands, Oriented to person, place, time, situation. Cardiovascular: Patient's skin is warm and dry. Respiratory: Airway is patent Respiratory effort is even, labored, Respiratory pattern is regular, symmetrical. GI: No signs and/or symptoms were reported involving the gastrointestinal system. : No signs and/or symptoms were reported regarding the genitourinary system. EENT: No signs and/or symptoms were reported regarding the EENT system. Derm: Skin is intact, Skin is pink, warm \T\ dry. Dialysis Fistula noted to the left arm. Musculoskeletal: Circulation, motion, and sensation intact. Range of motion: intact in all extremities. 04:30 Reassessment: Patient appears in no apparent distress at this time. Patient and/or jb4 family updated on plan of care and expected duration. Pain level reassessed. Patient is alert, oriented x 3, equal unlabored respirations, skin warm/dry/pink. 05:30 Reassessment: Patient appears in no apparent distress at this time. Patient and/or jb4 family updated on plan of care and expected duration. Pain level reassessed. Patient is alert, oriented x 3, equal unlabored respirations, skin warm/dry/pink. 06:05 Reassessment: Patient and/or family updated on plan of care and expected duration. Pain jb4 level reassessed. Patient is alert, oriented x 3, equal unlabored respirations, skin warm/dry/pink. Provider notified of patients condition, see MAR for orders. 07:04 Reassessment: Patient appears in no apparent distress at this time. Patient and/or jb4 family updated on plan of care and expected duration. Pain level reassessed. Patient is alert, oriented x 3, equal unlabored respirations, skin warm/dry/pink. Notified Dr. Tejada of pt's condition, see MAR for orders. Vital Signs: 03:23 BP 134 / 97; Pulse 71; Resp 13; Temp 98.7(O); Pulse Ox 84% on R/A; Weight 65.77 kg (R); jb4 Height 5 ft. 5 in. (165.10 cm) (R); Pain 0/10; 05:00 BP 102 / 45; Pulse 67; Resp 19; Temp 97.5(TE); Pulse Ox 91% on 3 lpm NC; jb4 06:00 BP 77 / 32; Pulse 71; Resp 20; Pulse Ox 92% on 3 lpm NC; jb4 06:30 BP 88 / 41; Pulse 70; Resp 19; Temp 97.7(TE); Pulse Ox 95% on 3 lpm NC; jb4 06:46 BP 94 / 37; Pulse 69; Resp 19; Pulse Ox 92% 3 lpm ; jb4 07:09 BP 98 / 42; Pulse 67; Resp 18; Pulse Ox 97% on 3 lpm NC; ko1 03:23 Body Mass Index 24.13 (65.77 kg, 165.10 cm) jb4 03:23 97% 3L NC jb4 ED Course: 03:10 Patient arrived in ED. mw2 03:12 Jake Sandoval MD is Attending Physician. rt 03:23 Arnold Bautista, RN is Primary Nurse. jb4 03:23 CBC with Diff Sent. jb4 03:23 CMP Sent. jb4 03:23 Troponin High Sensitivity Sent. jb4 03:23 Lactate w/ 2H reflex if indic. Sent. jb4 03:23 Arm band placed on right wrist. jb4 03:30 Initial lab(s) drawn, by me, sent to lab. First set of blood cultures drawn by me. jb4 Inserted saline lock: 20 gauge in right antecubital area, using aseptic technique. Blood collected. 03:30 Patient has correct armband on for positive identification. Placed in gown. Bed in low jb4 position. Call light in reach. Side rails up X2. Client placed on continuous cardiac and pulse oximetry monitoring. NIBP monitoring applied. shelter monitor on. 03:58 Notified ED physician of a critical lab result(s). creatinine of 6.45 Dr Lori dockery notified. 04:02 Triage completed. jb4 05:03 Pineda Tejada MD is Hospitalizing Provider. rt 07:26 Attending Physician role handed off by Jake Sandoval MD [facility] 07:26 Gatito Chavez MD is Attending Physician. jean claude 07:38 initiated a transfer with Althea from the [facility]. eb 07:52 connected the waiver analyst oracle security consultant for [facility] with Dr. Chavez for patient eb transfer consultation. 07:57 administrative approval given by Althea Galindo Rn/ patient has been accepted to [facility] [address] [address] bed 17/ Dr. Nikunj Hodgson has accepted the patient in transfer/ report to be called to [phone]. 09:24 No provider procedures requiring assistance completed. Patient transferred, IV remains ko1 in place. Administered Medications: 03:23 Drug: DuoNeb (albuterol 2.5 mg, ipratropium 0.5 mg) (3:1) (2.5 mg - 0.5 mg) 3 ml Route: jb4 Nebulizer; 03:30 Drug: D10 in Water [2 mL/kg] 250 ml Route: IVP; Site: right forearm; jb4 04:00 Follow up: Response: No adverse reaction; Marked relief of symptoms; Blood sugar is jb4 elevated 04:58 Drug: Zofran (Ondansetron) 4 mg Route: IVP; Site: right forearm; jb4 05:28 Follow up: Response: No adverse reaction; Marked relief of symptoms jb4 04:58 Drug: Rocephin - (cefTRIAXone) 2 grams Route: IVPB; Infused Over: 30 mins; Site: right jb4 forearm; 05:28 Follow up: Response: No adverse reaction; IV Status: Completed infusion; IV Intake: jb4 100ml 04:58 Drug: AZITHromycin 500 mg Route: IVPB; Infused Over: 1 hrs; Site: right forearm; jb4 05:28 Drug: NS 0.9% 500 ml Route: IV; Rate: bolus; Site: right forearm; jb4 06:24 Drug: NS 0.9% 250 ml Route: IV; Rate: bolus; Site: right forearm; jb4 06:44 Follow up: Response: No adverse reaction; IV Status: Completed infusion; IV Intake: jb4 250ml 06:56 Drug: Lactated Ringers Solution 1000 ml Route: IV; Rate: 100 ml/hr; Site: right forearm;jb4 Medication: 03:30 VIS not applicable for this client. jb4 Intake: 05:28 IV: 100ml; Total: 100ml. jb4 06:44 IV: 250ml; Total: 350ml. jb4 Outcome: 05:04 Decision to Hospitalize by Provider. rt 08:01 ER care complete, transfer ordered by . jean claude 09:24 Transferred by private ambulance to [facility] [place], Transfer form ko1 completed. X-rays sent w/ patient. 09:24 Condition: stable 09:24 Discharge instructions given to patient, family, Instructed on the need for transfer, Demonstrated understanding of 09:25 Patient left the ED. ko1 Signatures: Gatito Chavez MD MD cha Ballard, Brenda, RN RN Arnold Chaparro RN RN jb4 Yenni Forman2 Yolanda Gordon Kathy, RN RN ko1 Jake Sandoval MD MD rt
[2022-05-14] MEDS ORDERED: NA CHLORIDE 0.9% 500 ML ONE (05:25)
--- NOTE | 2022-05-14 05:28 | P.HP ---
Certification for Inpatient Patient admitted to: Inpatient With expected LOS: >2 Midnights Patient will require the following post-hospital care: None Practitioner: I am a practitioner with admitting privileges, knowledge of patient current condition, hospital course, and medical plan of care. Services: Services provided to patient in accordance with Admission requirements found in Title 42 Section 412.3 of the Code of Federal Regulations <Dakota Morgan - Last Filed: 05/14/22 05:20> Patient History Date of Service: 05/14/22 Reason for admission: Dyspnea, hypoxia, hypoglycemia History of Present Illness: 67-year-old female with history of insulin-dependent diabetes, ESRD on HD MWF, liver transplant approximate 10 years ago compliant with rejection meds, hypertension, TIA presented to the emergency department for shortness of breath, cough. She reports increasing cough over the course of the weekend, she reports being started on an unknown antibiotic by her meat seafood associate on Saturday for persistent/worsening cough. Patient was found to be hypoglycemic in ED glucose of 52 labs redemonstrated ESRD WBC within normal limits, no fever at this time. Chest x-ray showed left greater than right pleural effusions and bibasilar airspace disease which obscures the cardiomediastinal silhouette. Patient was also satting around 85 to 87% on room air she was placed on nasal cannula currently saturating 95% on 3 L per nasal cannula. ABG ordered/pending. - Past Medical/Surgical History Diabetic: Yes -: TIA -: HTN -: liver transplant -: IDDM -: Liver Cancer -: neuropathy -: liver transplant Psychosocial/ Personal History: lives at home with - Family History Mother -: Stroke - Social History Smoking Status: Never smoker Alcohol use: No CD- Drugs: No Caffeine use: No Place of Residence: Home <Dakota Morgan - Last Filed: 05/14/22 05:20> Date of Service: 05/14/22 <Pineda Tejada - Last Filed: 05/14/22 08:20> Allergies codeine Allergy (Verified 07/23/17 07:10) Unknown levofloxacin [From Levaquin] Allergy (Verified 07/23/17 07:10) Unknown Home Medications: Acetaminophen [Tylenol] 650 mg PO Q6HP PRN 11/29/20 Amlodipine Besylate 10 mg PO DAILY 11/29/20 Atorvastatin Calcium [Lipitor] 40 mg PO BEDTIME 11/29/20 Insulin Glargine,Hum.rec.anlog [Lantus Solostar] 7 unit SQ BID 11/29/20 Metoprolol Tartrate [Lopressor] 100 mg PO BID 11/29/20 Tacrolimus [Prograf] 3 mg PO BID 11/29/20 Andrea [Andrea*] 1 pkt PO BID #60 powd.pack 12/01/20 traMADol HCL [Ultram*] 50 mg PO Q6H PRN #30 tab 12/01/20 Review of Systems 10-point ROS is otherwise unremarkable General: Malaise Respiratory: Cough, Shortness of Breath, SOB with Excertion <Dakota Morgan - Last Filed: 05/14/22 05:20> Physical Examination - Physical Exam General: Alert, In no apparent distress, Oriented x3 HEENT: Atraumatic, PERRLA, Mucous membr. moist/pink, EOMI, Sclerae nonicteric Neck: Supple, 2+ carotid pulse no bruit, No LAD, Without JVD or thyroid abnormality Respiratory: Diminished, Expiratory wheezes Cardiovascular: No edema, Regular rate/rhythm, Normal S1 S2 Capillary refill: <2 Seconds Gastrointestinal: Normal bowel sounds, No tenderness Musculoskeletal: No tenderness Integumentary: No rashes Neurological: Normal speech, Normal strength at 5/5 x4 extr, Normal tone, Normal affect - Studies Laboratory Data (last 24 hrs) 05/14/22 03:15: Sodium 132 L, Potassium 4.3, BUN 64 H, Creatinine 6.45 H*, Glucose 59 L, Total Bilirubin 0.6, AST 24, ALT 25, Alkaline Phosphatase 135 H 05/14/22 03:15: WBC 5.50, Hgb 11.5 L, Hct 36.1, Plt Count 210 <Dakota Morgan - Last Filed: 05/14/22 05:20> - Studies Laboratory Data (last 24 hrs) 05/14/22 03:15: Sodium 132 L, Potassium 4.3, BUN 64 H, Creatinine 6.45 H*, Glucose 59 L, Total Bilirubin 0.6, AST 24, ALT 25, Alkaline Phosphatase 135 H 05/14/22 03:15: WBC 5.50, Hgb 11.5 L, Hct 36.1, Plt Count 210 Microbiology Data (last 24 hrs): 05/14/22 04:20 Blood - Blood Anaerobic Blood Culture - Final <Pineda Tejada - Last Filed: 05/14/22 08:20> Assessment and Plan - Plan Assessment: Acute hypoxic respiratory failure secondary to asbestosis/bilateral pleural effusions ESRD on HD MWF Diabetes mellitus type 2insulin-dependent with hyperglycemia History of liver transplant Hypertension Plan: Acute hypoxic respiratory failure secondary to asbestosis/bilateral pleural effusions Neurologic consulted, patient reports increased cough since last Saturday, at that time she was placed on an unknown antibiotic by her meat seafood associate. Continue with antibiotics at this time, blood cultures obtained in ED. Appreciate further input from pulmonology. ESRD on HD MWF Neurology consulted Diabetes mellitus type 2insulin-dependent with hypoglycemia Patient takes Lantus 18 units daily, did take it yesterday but has not taken her Lantus yet today. Reports poor oral intake last few days with lack of appetite. Hold long-acting insulin. Mild sliding scale. History of liver transplant Continue antirejection meds, LFTs stable. Hypertension Blood pressure borderline low, hold oral antihypertensives at this time. DVT PPX: Subcu Code status:full Discharge Plan: Home Plan to discharge in: 48 Hours - Advance Directives Does patient have a Living Will: Yes Does patient have a Durable POA for Healthcare: Yes - Code Status/Comfort Care Code Status Assessed: Yes (Full code) Critical Care: No Time Spent Managing Pts Care (In Minutes): 70 <Dakota Morgan - Last Filed: 05/14/22 05:20> Physician Review Additional Text: Patient evaluated shortly after ANA LUISA called for admission. Blood pressure remains low, briefly responsive to IVF. Concern with b/l pleural effusions, ESRD which lead to avoidance of full sepsis bolus. Given the complexity recommend transfer to tertiary care center- h/o multiple abdominal surgeries, liver transplant, septic, with concern for septic shock. Patient alert/oriented x3, short of breath while talking, 90+% on 4L NC, BP: 95-99/40-50 after 750ml total IVF bolus. Discussed with ER physician who is agreement, transfer to [facility] would be in the patient's best interest. Transfer initiated and patient accepted. <Pineda Tejada - Last Filed: 05/14/22 08:20>
[2022-05-14 05:58] LABS: Arterial Blood Carboxyhemoglob 1.5 % (0-1.5); Blood Gas Oxyhemoglobin 68.4 % (94-97); Blood O2 Saturation 70.7 % (92-98.5)
[2022-05-14] MEDS ORDERED: Ringers Lactate 1,000 ML IV ONE (06:57)
[2022-05-14] MEDS ORDERED: IPRATROPIUM BROM 0.5MG/2.5ML NEB PRN ×2 (07:14→12:00)
[2022-05-14] MEDS ORDERED: ACETAMINOPHEN 500 MG TAB PO PRN (07:14)
[2022-05-14] MEDS ORDERED: ONDANSETRON 4 MG/2 ML VIAL IV PRN (07:14)
[2022-05-14] MEDS ORDERED: ALBUTEROL 2.5 MG/3 ML NEB SOL NEB PRN ×2 (07:14→12:00)
[2022-05-14] MEDS ORDERED: INSULIN -REGULAR HUMAN 50 UNIT/0.5 ML ML SQ SCH (07:30)
[2022-05-14 07:36] LABS: SARS-COV-2 RT PCR NEGATIVE (NEGATIVE)
--- NOTE | 2022-05-14 07:47 | RAD REPORT ---
EXAM DESCRIPTION: CT - Chest Abd Pelvis Wo Con - 05/14/2022 7:23 am CLINICAL HISTORY: Chest and abdominal pain. Fever. COMPARISON: 2020 TECHNIQUE: Computed axial tomography of the chest, abdomen and pelvis was obtained. IV and oral cont rast was not requested. All CT scans are performed using dose optimization technique as appropriate and may include automated exposure control or mA/KV adjustment according to patient size. FINDINGS: The evaluation of mediastinum, theron, vessels,bowel and solid organs is limited secondary to the lack of contrast administration Small loculated left pleural effusion. Left lung opacities probably combination of atelectasis and pn eumonia. Small to moderate right pleural effusion with right basilar atelectasis. Additional mild bibasilar briseida ng opacities. Small mediastinal and hilar lymph nodes may be reactive in nature. Esophagus is distended. Coronary arterial calcifications. No pericardial effusion. Liver and spleen are mildly enlarged. Pancreas, adrenals grossly normal. Small kidneys. No hydronephrosis No evidence of diverticulitis. Prominent atherosclerosis. Small to moderate periumbilical hernia. Small to moderate amount ascites pelvis small amount of ascites abdomen. Diffuse edema within the sub cutaneous tissues IMPRESSION: Small loculated left pleural effusion. Small to moderate right pleural effusion Bilateral pulmonary opacities probably a combination of atelectasis and pneumonia or pulmonary edema Small to moderate ascites pelvis. Small amount ascites abdomen
[2022-05-14] MEDS ORDERED: PIPERACIL/TAZO 2.25 GM VIAL IV ONE (08:21)
[2022-05-14] MEDS ORDERED: HEPARIN 5000 UNIT/ML 1 ML VIAL ONE (08:21)
[2022-05-14] MEDS ORDERED: predniSONE 20 MG TAB ONE (08:21)
--- NOTE | 2022-05-14 08:48 | P.CNS ---
Date of Consult: 05/14/22 Chief Complaint: Dyspnea, hypoxia, hypoglycemia History of Present Illness: Per Primary team, the consultation has been cancelled Allergies codeine Allergy (Verified 07/23/17 07:10) Unknown levofloxacin [From Levaquin] Allergy (Verified 07/23/17 07:10) Unknown Home Medications: Acetaminophen [Tylenol] 650 mg PO Q6HP PRN 11/29/20 Amlodipine Besylate 10 mg PO DAILY 11/29/20 Atorvastatin Calcium [Lipitor] 40 mg PO BEDTIME 11/29/20 Insulin Glargine,Hum.rec.anlog [Lantus Solostar] 7 unit SQ BID 11/29/20 Metoprolol Tartrate [Lopressor] 100 mg PO BID 11/29/20 Tacrolimus [Prograf] 3 mg PO BID 11/29/20 Andrea [Andrea*] 1 pkt PO BID #60 powd.pack 12/01/20 traMADol HCL [Ultram*] 50 mg PO Q6H PRN #30 tab 12/01/20 - Past Medical/Surgical History Diabetic: Yes -: TIA -: HTN -: liver transplant -: IDDM -: Liver Cancer -: neuropathy -: liver transplant Psychosocial/ Personal History: lives at home with - Family History Mother Medical History: Stroke - Social History Smoking Status: Unknown if ever smoked Alcohol use: No CD- Drugs: No Caffeine use: No Place of Residence: Home
[2022-05-14] MEDS ORDERED: PIPER TAZO 2.25 GM in NA CHLORIDE 0.9% 50 ML IV SCH (09:00)
[2022-05-14] MEDS ORDERED: predniSONE 20 MG TAB PO SCH (09:00)
[2022-05-14] MEDS ORDERED: HEPARIN 5000 UNIT/ML 1 ML VIAL SQ SCH (09:00)
[2022-05-14 09:47] VITALS: TEMP 97.7
[2022-05-14 09:50] VITALS: BP 98/42; O2SAT 97
--- NOTE | 2022-05-14 12:35 | EKG ---
Test Date: 2022-05-14 Test Time: 03:49:40 Bar And Filler Assembler: ASHLEY MEASUREMENT RESULTS: Intervals: Rate: 68 ND: 208 QRSD: 174 QT: 494 QTc: 525 [place]: P: 78 ND: 208 QRS: -22 T: 116 INTERPRETIVE STATEMENTS: Normal sinus rhythm Left bundle branch block Abnormal ECG Compared to ECG 11/03/2020 16:33:03 First degree AV block no longer present Prolonged QT interval no longer present Electronically Signed On 05-14-22 12:34:42 PREFORMS LAMINATOR by Marshal Valentin
--- NOTE | 2022-05-14 20:54 | RAD REPORT ---
EXAM DESCRIPTION: RAD - Chest Single View - 05/14/2022 3:24 am CLINICAL HISTORY: The patient is 67 years old and is Female; COUGH [facility] MAIN TECHNIQUE: Frontal view of the chest. COMPARISON: No relevant prior studies available. FINDINGS: LUNGS: See below. PLEURAL SPACE: Left greater than right pleural effusions and bibasilar airspace disease, which obs cures the cardiomediastinal silhouette. No pneumothorax or pneumomediastinum. HEART: See above. MEDIASTINUM: See above. BONES/JOINTS: Unremarkable. SOFT TISSUES: Surgical clips noted overlying the medial soft tissues of the left upper extremity. VASCULATURE: Calcified atherosclerosis of the thoracic aorta. IMPRESSION: Left greater than right pleural effusions and bibasilar airspace disease, which obscures the cardiomediastinal silhouette. Electronically signed by: Delta Carlson MD 05/14/2022 4:12 AM [facility] [employer] Due to temporary technical issues with the PACS/Fluency reporting system, reports are being signed by the in house radiologists without review as a courtesy to insure prompt reporting. The interpreting radiologist is fully responsible for the content of the report.
== END 2022-05-14 09:25 | disposition short-term general hospital (02) | DRG 189 ==
LOC: ER 03:06 → 2ND 05:11 → ERHOLD 05:36
PROVIDERS: ADMIT Hospitalist; ATTEND Hospitalist
DX: J96.01 Acute respiratory failure with hypoxia (principal); N18.6 End stage renal disease; J90 Pleural effusion, not elsewhere classified; Z94.4 Liver transplant status; I12.0 Hypertensive chronic kidney disease with stage 5 chronic kidney disease or end stage renal disease; E11.649 Type 2 diabetes mellitus with hypoglycemia without coma; E11.22 Type 2 diabetes mellitus with diabetic chronic kidney disease; E11.40 Type 2 diabetes mellitus with diabetic neuropathy, unspecified; Z88.1 Allergy status to other antibiotic agents; Z88.5 Allergy status to narcotic agent; Z99.2 Dependence on renal dialysis; Z79.4 Long term (current) use of insulin; Z86.73 Personal history of transient ischemic attack (TIA), and cerebral infarction without residual deficits; Z79.899 Other long term (current) drug therapy; Z20.822 Contact with and (suspected) exposure to COVID-19
CPT/HCPCS: 0240U; 36415; 71045; 71250; 74176; 80053; 82805; 82947; 83605; 84484; 85025; 87040; 93005; 94640; 96365; 96367; 96375; 99285; J0456; J0696; J1644; J2405; J2543; J7040; J7050; J7120; J7512; J7613; J7644